=== PATIENT | female | born 1955 | race Caucasian/White ===

== ENCOUNTER 2017-11-19 03:10 | Inpatient (IN) | payer OTHER ==
[~2017-11-19] VITALS: Ht 167.6 cm; Wt 67.0 kg
[~2017-11-19 03:10] MED LIST: ALBU8I INH; BUSP30TA PO; CLEAPOW2 PO; FIORIC PO; HYDR10SO PO; MORP1CAP63 PO; PROT40TA PO; VENL100T PO
[2017-11-19 03:20] VITALS: BP 149/76; PULSE 83; RESP 16; TEMP 97.8; O2SAT 97
[2017-11-19] MEDS ORDERED: SODIUM CHLOR 0.9% 1000 ML INJ 1,000 ML IV SCH (03:24)
[2017-11-19] MEDS ORDERED: ONDANSETRON HCL 4 MG/2 ML VIAL IVP ONE (03:30)
[2017-11-19] MEDS ORDERED: SODIUM CHLORIDE 0.9% FLUSH 10 ML FLUSH IV FLUSH PRN ×2 (03:30→04:45)
--- NOTE | 2017-11-19 03:35 | PD ---
HPI Chief Complaint: Chemical [facility] Chief Problem Time Seen by Provider: 03:24 Travel History International Travel<30 days: No Contact w/Intl Traveler<30days: No Traveled to known affect area: No History of Present Illness HPI 62-year-old female presents to the emergency department from home by EMS transport for evaluation of legs feeling funny and abdominal pain. Patient states she has not felt well for several days with cold symptoms but more specifically on Monday evening she did not feel well and went to bed around 3 PM in the afternoon and awaken around 1:30 AM this morning. Patient states that she felt funny and her legs like they had been asleep or that they were moving and she could not control them so her daughter gave her 30 mg of her daughter's morphine. Patient herself has morphine pump. Patient states she has been ambulatory since waking this morning at 130 and has been able have a bowel movement and urinate normally. Patient denies any bladder or bowel dysfunction or saddle anesthesia or new numbness tingling or weakness in her legs. Patient has had previous fusion of the cervical spine and lumbar spine. Patient has a pain pump for chronic pain syndrome. Patient has reported subjective fever and chills feeling hot and cold but has not checked her temperature. Patient's had no dysuria frequency urgency hesitancy flank pain or hematuria. No diarrhea or constipation. No report of taking recent antibiotic. Patient rates her discomfort as "I do not know". PFSH Past Medical History Narrative Medical Chronic pain syndrome fibromyalgia cervical fusion and lumbar fusion hypertension COPD borderline dyslipidemia rapid heart rate kidney stones ureteral stent tubal ligation; tobacco use; nursing notes reviewed Arthritis: Yes Asthma: No Autoimmune Disease: Yes (CELIAC) Blood Disorders: No Heart Rhythm Problems: Yes (FAST HEART RATE) Cancer: No Cardiac Catheterization: Yes Cardiovascular Problems: Yes (HX TACHYCARDIA) High Cholesterol: Yes (BORDERLINE) Chemotherapy: No Chest Pain: Yes Congestive Heart Failure: No COPD: Yes Cerebrovascular Accident: No Diabetes: No Diminished Hearing: Yes (WEARS HEARING AIDS) Endocrine: No (SICKLE CELL TRAIT) Fibromyalgia: Yes Gastrointestinal Disorders: No (CELIAC DISEASE) GERD: Yes Glaucoma: No Genitourinary: No Headaches: No Hepatitis: No Hiatal Hernia: No Hypertension: No Immune Disorder: No Kidney Stones: Yes Musculoskeletal: No Neurologic: No Psychiatric: No (ANXIETY) Reproductive: No Respiratory: Yes (COPD) Migraines: No Radiation Therapy: No Renal Failure: No Seizures: No Sleep Apnea: No Thyroid Disease: No Ulcer: Yes PNEUMOCCOCAL Vaccine (Year): 2 Menopausal: Yes Tubal Ligation: Yes (1979) Past Surgical History Abdominal Surgery: No AICD: No Arteriovenous Shunt: No Body Medical Devices: DAYDAY. URETERAL STENTS Cardiac Surgery: No Coronary Artery Bypass Graft: No Ear Surgery: No Endocrine Surgery: No Eye Surgery: No Genitourinary Surgery: No Gynecologic Surgery: No Insulin Pump: No Joint Replacement: No Neurologic Surgery: No (CERVICAL FUSION) Oral Surgery: No Pacemaker: No Thoracic Surgery: No Other Surgery: Yes Social History Alcohol Use: No Tobacco Use: Yes (1 PPD) Substance Use: No Allergies-Medications (Allergen,Severity, Reaction): Coded Allergies: bupropion (Unverified Allergy, Severe, 05/30/17) diclofenac (Unverified Allergy, Severe, ULCER HX, 05/30/17) erythromycin base (Unverified Allergy, Severe, 05/30/17) etodolac (Unverified Allergy, Severe, ULCER HX, 05/30/17) flurbiprofen (Unverified Allergy, Severe, ULCER HX, 05/30/17) gabapentin (Unverified Allergy, Severe, 05/30/17) gluten (Unverified Allergy, Severe, BLOATING, 05/30/17) ibuprofen (Unverified Allergy, Severe, ULCER HX, 05/30/17) indomethacin (Unverified Allergy, Severe, ULCER HX, 05/30/17) ketoprofen (Unverified Allergy, Severe, ULCER HX, 05/30/17) ketorolac (Unverified Allergy, Severe, ULCER HX, 05/30/17) naproxen (Unverified Allergy, Severe, ULCER HX, 05/30/17) oxaprozin (Unverified Allergy, Severe, ULCER HX, 05/30/17) penicillin G (Unverified Allergy, Severe, 05/30/17) sulfamethoxazole (Unverified Allergy, Severe, 05/30/17) topiramate (Unverified Allergy, Severe, 05/30/17) trimethoprim (Unverified Allergy, Severe, 05/30/17) Reported Meds & Prescriptions Reported Meds & Active Scripts Active Narrative Medication Morphine pump Review of Systems Except as stated in HPI: all other systems reviewed are Neg General / Constitutional: Positive: Fever, Chills (Subjective) HENT: No: Sore Throat, Rhinitis, Congestion Cardiovascular: No: Chest Pain or Discomfort Respiratory: No: Shortness of Breath Gastrointestinal: Positive: Abdominal Pain, No: Nausea, Vomiting, Diarrhea, Hematemesis, Hematochezia Genitourinary: No: Dysuria, Flank Pain Musculoskeletal: No: Myalgias, Arthralgias, Limited ROM, Pain Skin: No Rash Neurologic: No: Weakness, Dizziness, Syncope, Focal Abnormalities Psychiatric: Positive: Anxiety Hematologic/Lymphatic: No: Easy Bruising Physical Exam Narrative GENERAL: Well-developed well-nourished female in no respiratory distress. Rocking back and forth on the bed and suctioning extending her hips and knees. SKIN: Warm and dry. HEAD: Atraumatic. Normocephalic. EYES: Pupils equal and round. No scleral icterus. No injection or drainage. ENT: No nasal bleeding or discharge. Mucous membranes pink and moist. NECK: Trachea midline. No JVD. CARDIOVASCULAR: Regular rate and rhythm. RESPIRATORY: No accessory muscle use. Clear to auscultation. Breath sounds equal bilaterally. GASTROINTESTINAL: Abdomen soft, diffusely mildly tender without palpable pulsatile mass no guarding or rebound right sided abdominal scar consistent with PainPump, nondistended. Hepatic and splenic margins not palpable. MUSCULOSKELETAL: Extremities without clubbing, cyanosis, or edema. No obvious deformities. NEUROLOGICAL: Awake and alert. GCS 15. No obvious cranial nerve deficits. Motor grossly within normal limits. Five out of 5 muscle strength in the arms and legs. Normal speech. PSYCHIATRIC: Appropriate mood and affect; insight and judgment normal. Data Data Last Documented VS Vital Signs Date Time Temp Pulse Resp B/P (MAP) Pulse Ox O2 Delivery O2 Flow Rate FiO2 11/19/17 03:20 97.8 83 16 149/76 (100) 97 Orders Orders Drug Screen, Random Urine (11/19/17 03:24) Alcohol (Ethanol) (11/19/17 03:24) Complete Blood Count With Diff (11/19/17 03:24) Comprehensive Metabolic Panel (11/19/17 03:24) Lipase (11/19/17 03:24) Urinalysis - C+S If Indicated (11/19/17 03:24) Ct Abd/Pel W Iv Contrast(Rout) (11/19/17 03:24) Iv Access Insert/Monitor (11/19/17 03:24) Ecg Monitoring (11/19/17 03:24) Oximetry (11/19/17 03:24) Ondansetron Inj (Zofran Inj) (11/19/17 03:30) Sodium Chlor 0.9% 1000 Ml Inj (Ns 1000 M (11/19/17 03:24) Electrocardiogram (11/19/17 03:24) Chest, Single Ap (11/19/17 03:24) Troponin I (11/19/17 03:24) Urine Culture (11/19/17 04:05) Blood Culture (11/19/17 04:26) Lactic Acid (11/19/17 04:26) Levofloxacin 500 Mg Premix Inj (Levaquin (11/19/17 04:30) Admit Order (Ed Use Only) (11/19/17 ) Vital Signs (Adult) Q4H (11/19/17 04:41) Diet Npo (11/19/17 Breakfast) Activity Oob With Assistance (11/19/17 04:41) Notify Dr: Other (11/19/17 04:41) Labs Laboratory Tests Test 11/19/17 03:40 11/19/17 04:05 White Blood Count 8.0 TH/MM3 Red Blood Count 4.93 MIL/MM3 Hemoglobin 14.1 GM/DL Hematocrit 40.8 % Mean Corpuscular Volume 82.7 FL Mean Corpuscular Hemoglobin 28.7 PG Mean Corpuscular Hemoglobin Concent 34.7 % Red Cell Distribution Width 14.8 % Platelet Count 247 TH/MM3 Mean Platelet Volume 8.1 FL Neutrophils (%) (Auto) 64.7 % Lymphocytes (%) (Auto) 29.5 % Monocytes (%) (Auto) 4.7 % Eosinophils (%) (Auto) 0.4 % Basophils (%) (Auto) 0.7 % Neutrophils # (Auto) 5.2 TH/MM3 Lymphocytes # (Auto) 2.4 TH/MM3 Monocytes # (Auto) 0.4 TH/MM3 Eosinophils # (Auto) 0.0 TH/MM3 Basophils # (Auto) 0.1 TH/MM3 CBC Comment DIFF FINAL Differential Comment Blood Urea Nitrogen 14 MG/DL Creatinine 0.99 MG/DL Random Glucose 107 MG/DL Total Protein 7.4 GM/DL Albumin 3.7 GM/DL Calcium Level 9.8 MG/DL Alkaline Phosphatase 135 U/L Aspartate Amino Transf (AST/SGOT) 26 U/L Alanine Aminotransferase (ALT/SGPT) 26 U/L Total Bilirubin 0.4 MG/DL Sodium Level 142 MEQ/L Potassium Level 4.0 MEQ/L Chloride Level 112 MEQ/L Carbon Dioxide Level 22.7 MEQ/L Anion Gap 7 MEQ/L Estimat Glomerular Filtration Rate 57 ML/MIN Troponin I LESS THAN 0.02 NG/ML Lipase 2544 U/L Ethyl Alcohol Level LESS THAN 3 MG/DL Urine Color LIGHT-YELLOW Urine Turbidity HAZY Urine pH 8.0 Urine Specific [place] 1.009 Urine Protein NEG mg/dL Urine Glucose (UA) NEG mg/dL Urine Ketones NEG mg/dL Urine Occult Blood NEG Urine Nitrite POS Urine Bilirubin NEG Urine Urobilinogen LESS THAN 2.0 MG/DL Urine Leukocyte Esterase LARGE Urine RBC 4 /hpf Urine WBC 39 /hpf Urine WBC Clumps OCC Urine Squamous Epithelial Cells 23 /hpf Urine Bacteria RARE /hpf Urine Mucus FEW /lpf Microscopic Urinalysis Comment CULTURE INDICATED Urine Opiates Screen POS Urine Barbiturates Screen NEG Urine Amphetamines Screen NEG Urine Benzodiazepines Screen NEG Urine Cocaine Screen NEG Urine Cannabinoids Screen NEG MDM Medical Decision Making Medical Screen Exam Complete: Yes Emergency Medical Condition: Yes Medical Record Reviewed: Yes Interpretation(s) CBC & BMP Diagram 11/19/17 03:40 Total Protein 7.4, Albumin 3.7, Calcium Level 9.8, Alkaline Phosphatase 135 H, Aspartate Amino Transf (AST/SGOT) 26, Alanine Aminotransferase (ALT/SGPT) 26, Total Bilirubin 0.4 Vital Signs Date Time Temp Pulse Resp B/P (MAP) Pulse Ox O2 Delivery O2 Flow Rate FiO2 11/19/17 03:20 97.8 83 16 149/76 (100) 97 Differential Diagnosis Adverse medication reaction, pain pump failure, abdominal pain, colitis, diverticulitis, appendicitis, renal colic, abdominal aortic aneurysm, aortic dissection Narrative Course Patient placed on spa coordinator with continuous pulse oximetry EKG performed IV access obtained specimens collected and sent for resulting patient administered Zofran 4 mg IV lipase elevated UA: Positive nitrites positive leukocyte esterase positive WBCs positive bacteria culture indicated Patient given a one-time dose of Levaquin IV fluids kept n.p.o. and sent for CT abdomen and pelvis Patient's case discussed with on-call [facility] for OBS admission Physician Communication Physician Communication discussed with Dr Barahona -- OBS Diagnosis Primary Impression: Pancreatitis Qualified Codes: K85.90 - Acute pancreatitis without necrosis or infection, unspecified Admitting Information Admitting Physician Requests: Haley Flynn MD Nov 19, 2017 03:35
--- NOTE | 2017-11-19 03:56 | RADRPT ---
EXAM DATE/TIME: 11/19/2017 03:29 [facility] COMPARISON: CHEST SINGLE AP, February 13, 2013, 18:36. INDICATIONS : Free air. MEDICAL HISTORY : Chronic obstructive pulmonary disease. Fibromyalgia. SURGICAL HISTORY : None. ENCOUNTER: Initial ACUITY: 1 day PAIN SCORE: 0/10 LOCATION: Bilateral chest FINDINGS: A single view of the chest demonstrates the lungs to be symmetrically aerated without evidence of mas s, infiltrate or effusion. The cardiomediastinal contours are unremarkable. Osseous structures are intact. CONCLUSION: No acute disease. There is no evidence for free air beneath the diaphragm. Ariel Nath MD on November 19, 2017 at 3:55 Board Certified Radiologist. This report was verified electronically.
[2017-11-19 03:58] LABS: AUTOMATED NEUTROPHIL # 5.2 TH/MM3 (1.8-7.7); BASOPHIL # 0.1 TH/MM3 (0-0.2); BASOPHIL % 0.7 % (0.0-2.0); EOSINOPHIL % 0.4 % (0.0-4.0); HEMATOCRIT 40.8 % (35.0-46.0); HEMOGLOBIN 14.1 GM/DL (11.6-15.3); LYMPH % 29.5 % (9.0-44.0); LYMPHOCYTE # 2.4 TH/MM3 (1.0-4.8); MEAN CELL VOLUME 82.7 FL (80.0-100.0); MEAN CORPUSCULAR HEMOGLOBIN 28.7 PG (27.0-34.0); MEAN CORPUSCULAR HGB CONC 34.7 % (32.0-36.0); MEAN PLATELET VOLUME 8.1 FL (7.0-11.0); MONO % 4.7 % (0.0-8.0); MONOCYTE # 0.4 TH/MM3 (0-0.9); NEUT % 64.7 % (16.0-70.0); PLATELET COUNT 247 TH/MM3 (150-450); RED BLOOD COUNT 4.93 MIL/MM3 (4.00-5.30); RED CELL DISTRIBUTION WIDTH 14.8 % (11.6-17.2)
[2017-11-19 04:18] LABS: ALKALINE PHOSPHATASE 135 U/L (45-117); TOTAL BILIRUBIN ADULT 0.4 MG/DL (0.2-1.0); TOTAL PROTEIN 7.4 GM/DL (6.4-8.2); TROPONIN I LESS THAN 0.02 NG/ML (0.02-0.05)
[2017-11-19 04:24] LABS: BACTERIA, URINE RARE /hpf; BILIRUBIN, URINE NEG (NEG); BLOOD, URINE NEG (NEG); GLUCOSE,URINE NEG (NEG); KETONE, URINE NEG (NEG); MUCUS URINE FEW /lpf (OCC); NITRITE,URINE POS (NEG); SQUAMOUS EPITHELIAL CELL URINE 23 /hpf (0-5); URINE COLOR LIGHT-YELLOW (YELLW/STRAW); URINE LEUKOCYTE ESTERASE LARGE (NEG); WHITE BLOOD CELL CLUMPS OCC
[2017-11-19 04:26] LABS: ALBUMIN 3.7 GM/DL (3.4-5.0); ALT (GPT) 26 U/L (10-53); AST (GOT) 26 U/L (15-37); BICARBONATE 22.7 MEQ/L (21.0-32.0); BLOOD UREA NITROGEN 14 MG/DL (7-18); CALCIUM 9.8 MG/DL (8.5-10.1); CHLORIDE 112 MEQ/L (98-107); CREATININE 0.99 MG/DL (0.50-1.00); GLOMERULAR FILTRATION RATE 57 ML/MIN (>89); GLUCOSE,RANDOM 107 MG/DL (74-106); SODIUM (NA) 142 MEQ/L (136-145)
[2017-11-19] MEDS ORDERED: LEVOFLOXACIN 500 MG PREMIX INJ 100 ML IV ONE (04:30)
[2017-11-19] MEDS ORDERED: NALOXONE HCL 0.4 MG/ML AMP IV PUSH PRN (04:45)
[2017-11-19] MEDS ORDERED: ONDANSETRON HCL 4 MG/2 ML VIAL IVP PRN (04:45)
[2017-11-19] MEDS ORDERED: IOHEXOL 350 MG/ML 10 ML VIAL (for RAD DIAG) IVCONTRAST ONE (04:57)
[2017-11-19] MEDS ORDERED: HEPARIN SODIUM - SQ 10,000 UNITS/ML VIAL SQ SCH (05:00)
--- NOTE | 2017-11-19 05:13 | RADRPT ---
EXAM DATE/TIME: 11/19/2017 04:57 [facility] COMPARISON: No previous studies available for comparison. INDICATIONS : Abdominal pain with elevated lipase. IV CONTRAST: 75 cc Omnipaque 350 (iohexol) IV ORAL CONTRAST: No oral contrast ingested. RADIATION DOSE: 9.71 CTDIvol (mGy) MEDICAL HISTORY : Cardiovascular disease. Chronic obstructive pulmonary disease. Gastroesophageal reflux disease.Gallst ones SURGICAL HISTORY : Tubal ligation. ENCOUNTER: Initial ACUITY: 1 day PAIN SCALE: 6/10 LOCATION: abdomen TECHNIQUE: Volumetric scanning of the abdomen and pelvis was performed. Using automated exposure control and ad justment of the mA and/or kV according to patient size, radiation dose was kept as low as reasonably achievable to obtain optimal diagnostic quality images. DICOM format image data is available electro nically for review and comparison. FINDINGS: No pleural effusions are seen. The gallbladder is filled with stones. There is slight prominence of t he intrahepatic biliary tree, and the common bile duct measures 11 mm in maximal dimension. Urinary b ladder is unremarkable. Uterus demonstrates a enhancing mass near the fundus measuring 2.2 cm filter present a fibroid. Ovaries are unremarkable. A moderate amount of stool is noted within the colon, an d occasional diverticuli without evidence for diverticulitis. Spleen, pancreas, adrenals unremarkable . There are bilateral renal calculi identified the largest at the lower pole of the left kidney measu ring 1.4 cm, and on the right the largest measures 7.1 mm at the mid pole. No evidence of hydronephro sis or hydroureter. Lung bases are clear. Osseous structures are intact. CONCLUSION: 1. Cholelithiasis and mild prominence of the biliary tree. There is a questionable filling defect in the distal common bile duct seen best on coronal imaging and suspect for choledocholith or mass. Cons ider MRCP and MRI of the abdomen with and without contrast for further evaluation of this finding. Ariel Nath MD on November 19, 2017 at 5:07 Board Certified Radiologist. This report was verified electronically.
[2017-11-19] MEDS: SODIUM CHLOR 0.9% 1000 ML INJ 1,000 ML IV SCH ×3 (05:21→13:48)
--- NOTE | 2017-11-19 05:55 | HHI.HP ---
HPI Service [facility] Primary Care Physician [facility] Admission Diagnosis pancreatitis/elevated lipase; chronic pain syndrome Diagnoses: Travel History International Travel<30 Days: No Contact w/Intl Traveler <30 Da: No Traveled to Known Affected Are: No History of Present Illness 62-year-old female with a past medical history significant for chronic pain with morphine pump, fibromyalgia, celiac disease and anxiety presents to the emergency department for evaluation of leg spasms. The patient reports that she woke up approximately 1 AM and "could not control her legs." Her daughter gave her a 30 mg tablet of morphine to help with her symptoms yet they persisted. The patient states that she cannot walk. She endorses nausea/ vomiting. Denies abdominal pain. Denies chest pain/shortness of breath. She reports that her pain pump was supposed to be filled on 11/09 however due [facility] with [facility] it was never [facility]. Of note, while the patient was alone in her room she was still however upon my entering the room and during our interview she had multiple leg spasms that appeared to be voluntary. Review of Systems Except as stated in HPI: all other systems reviewed are Neg Past Family Social History Past Medical History Celiac disease Fibromyalgia Chronic pain Anxiety Past Surgical History Fusion C4-C5 Morphine pump placement Reported Medications Reported Meds & Active Scripts Active Allergies: Coded Allergies: bupropion (Unverified Allergy, Severe, 05/30/17) diclofenac (Unverified Allergy, Severe, ULCER HX, 05/30/17) erythromycin base (Unverified Allergy, Severe, 05/30/17) etodolac (Unverified Allergy, Severe, ULCER HX, 05/30/17) flurbiprofen (Unverified Allergy, Severe, ULCER HX, 05/30/17) gabapentin (Unverified Allergy, Severe, 05/30/17) gluten (Unverified Allergy, Severe, BLOATING, 05/30/17) ibuprofen (Unverified Allergy, Severe, ULCER HX, 05/30/17) indomethacin (Unverified Allergy, Severe, ULCER HX, 05/30/17) ketoprofen (Unverified Allergy, Severe, ULCER HX, 05/30/17) ketorolac (Unverified Allergy, Severe, ULCER HX, 05/30/17) naproxen (Unverified Allergy, Severe, ULCER HX, 05/30/17) oxaprozin (Unverified Allergy, Severe, ULCER HX, 05/30/17) penicillin G (Unverified Allergy, Severe, 05/30/17) sulfamethoxazole (Unverified Allergy, Severe, 05/30/17) topiramate (Unverified Allergy, Severe, 05/30/17) trimethoprim (Unverified Allergy, Severe, 05/30/17) Family History Both parents with coronary artery disease. Social History Smokes approximately one pack per day. Remote history of alcohol. Denies illicit drugs. Physical Exam Vital Signs Vital Signs Date Time Temp Pulse Resp B/P (MAP) Pulse Ox O2 Delivery O2 Flow Rate FiO2 11/19/17 03:20 97.8 83 16 149/76 (100) 97 Physical Exam GENERAL: female, vacillating between sitting and lying, with multiple leg movements throughout the entire interview SKIN: No rashes, ecchymoses or lesions. Cool and dry. HEAD: Atraumatic. Normocephalic. No temporal or scalp tenderness. EYES: Pupils equal round and reactive. Extraocular motions intact. No scleral icterus. No injection or drainage. ENT: Nose without bleeding, purulent drainage or septal hematoma. Throat without erythema, tonsillar hypertrophy or exudate. Uvula midline. Airway patent. NECK: Trachea midline. No JVD or lymphadenopathy. Supple, nontender, no meningeal signs. CARDIOVASCULAR: Regular rate and rhythm without murmurs, gallops, or rubs. RESPIRATORY: Clear to auscultation. Breath sounds equal bilaterally. No wheezes , rales, or rhonchi. GASTROINTESTINAL: Abdomen soft, mildly tender to palpation diffusely, nondistended. No hepato-splenomegaly, or palpable masses. No guarding. MUSCULOSKELETAL: Extremities without clubbing, cyanosis, or edema. No joint tenderness, effusion, or edema noted. No calf tenderness. NEUROLOGICAL: Awake and alert. Cranial nerves II through XII intact. Motor and sensory grossly within normal limits. Normal speech. Laboratory Laboratory Tests Test 11/19/17 03:40 11/19/17 04:05 11/19/17 04:55 White Blood Count 8.0 Red Blood Count 4.93 Hemoglobin 14.1 Hematocrit 40.8 Mean Corpuscular Volume 82.7 Mean Corpuscular Hemoglobin 28.7 Mean Corpuscular Hemoglobin Concent 34.7 Red Cell Distribution Width 14.8 Platelet Count 247 Mean Platelet Volume 8.1 Neutrophils (%) (Auto) 64.7 Lymphocytes (%) (Auto) 29.5 Monocytes (%) (Auto) 4.7 Eosinophils (%) (Auto) 0.4 Basophils (%) (Auto) 0.7 Neutrophils # (Auto) 5.2 Lymphocytes # (Auto) 2.4 Monocytes # (Auto) 0.4 Eosinophils # (Auto) 0.0 Basophils # (Auto) 0.1 CBC Comment DIFF FINAL Differential Comment Blood Urea Nitrogen 14 Creatinine 0.99 Random Glucose 107 Total Protein 7.4 Albumin 3.7 Calcium Level 9.8 Alkaline Phosphatase 135 Aspartate Amino Transf (AST/SGOT) 26 Alanine Aminotransferase (ALT/SGPT) 26 Total Bilirubin 0.4 Sodium Level 142 Potassium Level 4.0 Chloride Level 112 Carbon Dioxide Level 22.7 Anion Gap 7 Estimat Glomerular Filtration Rate 57 Troponin I LESS THAN 0.02 Lipase 2544 Ethyl Alcohol Level LESS THAN 3 Urine Color LIGHT-YELLOW Urine Turbidity HAZY Urine pH 8.0 Urine Specific [place] 1.009 Urine Protein NEG Urine Glucose (UA) NEG Urine Ketones NEG Urine Occult Blood NEG Urine Nitrite POS Urine Bilirubin NEG Urine Urobilinogen LESS THAN 2.0 Urine Leukocyte Esterase LARGE Urine RBC 4 Urine WBC 39 Urine WBC Clumps OCC Urine Squamous Epithelial Cells 23 Urine Bacteria RARE Urine Mucus FEW Microscopic Urinalysis Comment CULTURE INDICATED Urine Opiates Screen POS Urine Barbiturates Screen NEG Urine Amphetamines Screen NEG Urine Benzodiazepines Screen NEG Urine Cocaine Screen NEG Urine Cannabinoids Screen NEG Lactic Acid Level 0.6 Date/Time Source Procedure Growth Status 11/19/17 04:55 Blood Peripheral Aerobic Blood Culture Pending Received 11/19/17 04:55 Blood Peripheral Anaerobic Blood Culture Pending Received 11/19/17 04:05 Urine Clean Catch Urine Culture Pending Received Result Diagram: 11/19/17 0340 11/19/17 0340 Caprini VTE Risk Assessment Caprini VTE Risk Assessment: Mod/High Risk (score >= 2) Caprini Risk Assessment Model Point Value = 1 Point Value = 2 Point Value = 3 Point Value = 5 Age 41-60 Minor surgery BMI > 25 kg/m2 Swollen legs Varicose veins or History of unexplained or recurrent spontaneous Oral contraceptives or hormone replacement Sepsis (< 1 month) Serious lung disease, including pneumonia (< 1 month) Abnormal pulmonary function Acute myocardial infarction Congestive heart failure (< 1 month) History of inflammatory bowel disease Medical patient at bed rest Age 61-74 Arthroscopic surgery Major open surgery (> 45 min) Laparoscopic surgery (> 45 min) Malignancy Confined to bed (> 72 hours) Immobilizing plaster cast Central venous access Age >= 75 History of VTE Family history of VTE Factor V Leiden Prothrombin [id number] Lupus anticoagulant Anticardiolipin antibodies Elevated serum homocysteine Heparin-induced thrombocytopenia Other congenital or acquired thrombophilia Stroke (< 1 month) Elective arthroplasty Hip, pelvis, or leg fracture Acute spinal cord injury (< 1 month) Prophylaxis Regimen Total Risk Factor Score Risk Level Prophylaxis Regimen 0-1 Low Early ambulation 2 Moderate Order ONE of the following: *Sequential Compression Device (SCD) *Heparin 5000 units SQ BID 3-4 Higher Order ONE of the following medications: *Heparin 5000 units SQ TID *Enoxaparin/Lovenox 40 mg SQ daily (WT < 150 kg, CrCl > 30 mL/min) *Enoxaparin/Lovenox 30 mg SQ daily (WT < 150 kg, CrCl > 10-29 mL/min) *Enoxaparin/Lovenox 30 mg SQ BID (WT < 150 kg, CrCl > 30 mL/min) AND/OR *Sequential Compression Device (SCD) 5 or more Highest Order ONE of the following medications: *Heparin 5000 units SQ TID (Preferred with Epidurals) *Enoxaparin/Lovenox 40 mg SQ daily (WT < 150 kg, CrCl > 30 mL/min) *Enoxaparin/Lovenox 30 mg SQ daily (WT < 150 kg, CrCl > 10-29 mL/min) *Enoxaparin/Lovenox 30 mg SQ BID (WT < 150 kg, CrCl > 30 mL/min) AND *Sequential Compression Device (SCD) Assessment and Plan Assessment and Plan Assessment/plan: 1. Pancreatitis CT of the abdomen/pelvis significant for cholelithiasis and mild prominence of the biliary tree with questionable filling defect in the distal common bile duct , suspicious for stone versus mass Lipase 2544 Gastroenterology consulted, appreciate recommendations given scan Nothing by mouth IV fluid hydration Caution with pain medications as patient has pain pump and took additional morphine this morning 2. Urinary tract infection UA significant for rare bacteria, 39 WBCs, large leukocyte esterase and positive nitrates Rocephin Urine culture pending 3. Chronic pain/anxiety/fibromyalgia Continue home medications once reconciled FEN NPO NS at 150 cc/hr Electrolytes: monitor and replete prn Physician Certification 2 Midnight Certification Type: Admission for Inpatient Services Order for Inpatient Services The services are ordered in accordance with Medicare regulations or non- Medicare payer requirements, as applicable. In the case of services not specified as inpatient-only, they are appropriately provided as inpatient services in accordance with the 2-midnight benchmark. Estimated LOS (days): 2 2 days is the estimated time the patient will need to remain in the hospital, assuming treatment plan goals are met and no additional complications. Post-Hospital Plan: Not yet determined Yvette Barahona MD Nov 19, 2017 05:55
[2017-11-19] MEDS ORDERED: LORazepam 2 MG/ML VIAL IV PUSH ONE (06:00)
[2017-11-19] MEDS: SODIUM CHLORIDE 0.9% FLUSH 10 ML FLUSH IV FLUSH SCH ×2 (07:08→21:00)
[2017-11-19] MEDS: cefTRIAXone INJ 1,000 MG in SODIUM CHLORIDE 0.9% INJ 100 ML IV SCH (07:49)
[2017-11-19 08:00] VITALS: BP 142/79; PULSE 88; RESP 17; TEMP 98.4; O2SAT 98
--- NOTE | 2017-11-19 09:00 | PD.CONS ---
HPI History of Present Illness This is a 62 year old with a past medical history significant for chronic pain with morphine pump, fibromyalgia, celiac disease and anxiety presents to the emergency department for evaluation of involuntary leg spasms that wasn't relived with morphine. Reports nausea and one episode of vomiting the day before yesterday. States she has been following gluten free diet but had a cookie a couple of days ago, but she does this every now and then and never develop any symptoms. CT of the abdomen/pelvis done and that was significant for cholelithiasis and mild prominence of the biliary tree with questionable filling defect in the distal common bile duct, suspicious for stone versus mass. Labs with normal LfTs, high Lipase 2544. Patient reports subjective fever and chills. CBC unremarkable. Patient denies abd pain, change in bowels, change in urine, hematemesis or hematochezia. Denies previous hx of pancreatitis or liver disease, denies alcohol or illicit drug use. (Teagan Willson) PFSH Past Medical History Celiac disease Fibromyalgia Chronic pain Anxiety Past Surgical History Fusion C4-C5 Morphine pump placement (Teagan Willson) Coded Allergies: bupropion (Unverified Allergy, Severe, 05/30/17) diclofenac (Unverified Allergy, Severe, ULCER HX, 05/30/17) erythromycin base (Unverified Allergy, Severe, 05/30/17) etodolac (Unverified Allergy, Severe, ULCER HX, 05/30/17) flurbiprofen (Unverified Allergy, Severe, ULCER HX, 05/30/17) gabapentin (Unverified Allergy, Severe, 05/30/17) gluten (Unverified Allergy, Severe, BLOATING, 05/30/17) ibuprofen (Unverified Allergy, Severe, ULCER HX, 05/30/17) indomethacin (Unverified Allergy, Severe, ULCER HX, 05/30/17) ketoprofen (Unverified Allergy, Severe, ULCER HX, 05/30/17) ketorolac (Unverified Allergy, Severe, ULCER HX, 05/30/17) naproxen (Unverified Allergy, Severe, ULCER HX, 05/30/17) oxaprozin (Unverified Allergy, Severe, ULCER HX, 05/30/17) penicillin G (Unverified Allergy, Severe, 05/30/17) sulfamethoxazole (Unverified Allergy, Severe, 05/30/17) topiramate (Unverified Allergy, Severe, 05/30/17) trimethoprim (Unverified Allergy, Severe, 05/30/17) Family History Both parents with coronary artery disease. Negative for Colon cancer or pancreatic cancer Social History Smokes approximately one pack per day. Remote history of alcohol. Denies illicit drugs. (Teagan Willson) Review of Systems Constitutional: COMPLAINS OF: Fever, Chills Endocrine: DENIES: Polyuria Eyes: DENIES: Photosensitivity Ears, nose, mouth, throat: DENIES: Hoarseness Respiratory: DENIES: Shortness of breath Cardiovascular: DENIES: Lower Extremity Edema Gastrointestinal: COMPLAINS OF: Nausea, Vomiting, DENIES: Abdominal pain, Black stools, Bloody stools, Constipation, Diarrhea, Difficulty Swallowing, Anorexia, Odynophagia, Swelling of Abdomen, Heartburn, Hematemesis Genitourinary: DENIES: Hematuria Musculoskeletal: COMPLAINS OF: Back pain Integumentary: DENIES: Jaundice Hematologic/lymphatic: DENIES: Bruising Immunologic/allergic: DENIES: Eczema Neurologic: COMPLAINS OF: Abnormal gait Psychiatric: COMPLAINS OF: Anxiety (Teagan Willson) GI Exam Vitals I&O Vital Signs Date Time Temp Pulse Resp B/P (MAP) Pulse Ox O2 Delivery O2 Flow Rate FiO2 11/19/17 03:20 97.8 83 16 149/76 (100) 97 I/O 11/18/17 11/18/17 11/18/17 11/19/17 11/19/17 11/19/17 07:00 15:00 23:00 07:00 15:00 23:00 Intake Total 350 ml 100 ml Balance 350 ml 100 ml Intake IV Total 350 ml 100 ml Imaging Last Impressions Chest X-Ray 11/19/17323 Signed Impressions: Service Date/Time: Sunday, November 19, 2017 03:29 - CONCLUSION: No acute disease. There is no evidence for free air beneath the diaphragm. Ariel Nath MD Abdomen/Pelvis CT 11/19/17323 Signed Impressions: Service Date/Time: Sunday, November 19, 2017 04:57 - CONCLUSION: 1. Cholelithiasis and mild prominence of the biliary tree. There is a questionable filling defect in the distal common bile duct seen best on coronal imaging and suspect for choledocholith or mass. Consider MRCP and MRI of the abdomen with and without contrast for further evaluation of this finding. Ariel Nath MD Laboratory Test 11/19/17 03:40 11/19/17 04:05 11/19/17 04:55 White Blood Count 8.0 TH/MM3 Red Blood Count 4.93 MIL/MM3 Hemoglobin 14.1 GM/DL Hematocrit 40.8 % Mean Corpuscular Volume 82.7 FL Mean Corpuscular Hemoglobin 28.7 PG Mean Corpuscular Hemoglobin Concent 34.7 % Red Cell Distribution Width 14.8 % Platelet Count 247 TH/MM3 Mean Platelet Volume 8.1 FL Neutrophils (%) (Auto) 64.7 % Lymphocytes (%) (Auto) 29.5 % Monocytes (%) (Auto) 4.7 % Eosinophils (%) (Auto) 0.4 % Basophils (%) (Auto) 0.7 % Neutrophils # (Auto) 5.2 TH/MM3 Lymphocytes # (Auto) 2.4 TH/MM3 Monocytes # (Auto) 0.4 TH/MM3 Eosinophils # (Auto) 0.0 TH/MM3 Basophils # (Auto) 0.1 TH/MM3 CBC Comment DIFF FINAL Differential Comment Blood Urea Nitrogen 14 MG/DL Creatinine 0.99 MG/DL Random Glucose 107 MG/DL Total Protein 7.4 GM/DL Albumin 3.7 GM/DL Calcium Level 9.8 MG/DL Alkaline Phosphatase 135 U/L Aspartate Amino Transf (AST/SGOT) 26 U/L Alanine Aminotransferase (ALT/SGPT) 26 U/L Total Bilirubin 0.4 MG/DL Sodium Level 142 MEQ/L Potassium Level 4.0 MEQ/L Chloride Level 112 MEQ/L Carbon Dioxide Level 22.7 MEQ/L Anion Gap 7 MEQ/L Estimat Glomerular Filtration Rate 57 ML/MIN Troponin I LESS THAN 0.02 NG/ML Lipase 2544 U/L Ethyl Alcohol Level LESS THAN 3 MG/DL Urine Color LIGHT-YELLOW Urine Turbidity HAZY Urine pH 8.0 Urine Specific [place] 1.009 Urine Protein NEG mg/dL Urine Glucose (UA) NEG mg/dL Urine Ketones NEG mg/dL Urine Occult Blood NEG Urine Nitrite POS Urine Bilirubin NEG Urine Urobilinogen LESS THAN 2.0 MG/DL Urine Leukocyte Esterase LARGE Urine RBC 4 /hpf Urine WBC 39 /hpf Urine WBC Clumps OCC Urine Squamous Epithelial Cells 23 /hpf Urine Bacteria RARE /hpf Urine Mucus FEW /lpf Microscopic Urinalysis Comment CULTURE INDICATED Urine Opiates Screen POS Urine Barbiturates Screen NEG Urine Amphetamines Screen NEG Urine Benzodiazepines Screen NEG Urine Cocaine Screen NEG Urine Cannabinoids Screen NEG Lactic Acid Level 0.6 mmol/L Date/Time Source Procedure Growth Status 11/19/17 04:55 Blood Peripheral Aerobic Blood Culture Pending Received 11/19/17 04:55 Blood Peripheral Anaerobic Blood Culture Pending Received 11/19/17 04:05 Urine Clean Catch Urine Culture Pending Received Physical Examination HEENT: normocephalic; atraumatic; no jaundice. CHEST: Chest is clear to auscultation and percussion. CARDIAC: Regular rate and rhythm with no murmur gallop or rubs. ABDOMEN: Soft, nondistended, nontender; no hepatosplenomegaly; bowel sounds are present in all four quadrants. EXTREMITIES: No clubbing, cyanosis, or edema. SKIN: Normal; no rash; no jaundice. SHAKER OUT: No focal deficits; alert and oriented times three. (Teagan Willson) Assessment and Plan Plan - Acute pancreatitis- likely biliary etiology. CT of the abdomen/pelvis done and that was significant for cholelithiasis and mild prominence of the biliary tree with questionable filling defect in the distal common bile duct, suspicious for stone versus mass. Labs with normal LfTs, high Lipase 2544. Patient reports subjective fever and chills. CBC unremarkable. Patient denies abd pain, change in bowels, change in urine, hematemesis or hematochezia. Denies previous hx of pancreatitis or liver disease, denies alcohol or illicit drug use. Reports nausea and one episode of vomiting the day before yesterday. - Hx of celiac dz- last EGD 5 yrs ago per pt, has been following gluten free diet, she consumes gluten every now and then but minimal - UTI- urine cx pending - involuntary leg spasms that wasn't relived with morphine. per attending - past medical history significant for chronic pain with morphine pump, fibromyalgia, per attending Plan: - NPO - Aggressive hydration - Pain and antiemetic meds - Pt not able to have MRI due to morphine pump - ERCP in the am - Obtain consents - CBC, CMP, lipase in the am - CEA, CA19-9, AFP - Supportive care - Patient seen and examined by Dr. Espana and myself and this note is written on his behalf. (Teagan Willson) Physician Comments Seen and examined with LUDMILA, no abdominal pain. CT findings reviewed with pt. ERCP planned for tomorrow. Clear liquid diet, npo after midnight. Repeat labs in am. Thank you (Danielle Espana MD) Teagan Willson Nov 19, 2017 09:00 Danielle Espana MD Nov 19, 2017 12:34
[2017-11-19 12:00] VITALS: BP 153/88; PULSE 94; RESP 17; TEMP 98.4; O2SAT 97
--- NOTE | 2017-11-19 13:01 | EKG ---
Date Performed: 11/19/2017 Time Performed: 03:29:19 PTAGE: 62 years EKG: Sinus rhythm NORMAL ECG Since PREVIOUS TRACING , no significant change noted PREVIOUS TRACIN04/02/2015 10.18 DOCTOR: Stevie Atkins Interpretating Date/Time 11/19/2017 13:00:15
[2017-11-19 13:20] LABS: CARCINOEMBRYONIC ANTIGEN 2.4 NG/ML (0.2-5.0)
[2017-11-19 13:56] LABS: CA 19-9 9.2 U/ML (0.0-35.0)
[2017-11-19 16:14] VITALS: BP 166/80; PULSE 76; RESP 18; TEMP 98.7; O2SAT 97
[2017-11-19] MEDS ORDERED: LORazepam 2 MG TAB PO ONE (17:30)
[2017-11-19 20:43] VITALS: BP 187/86; PULSE 72; RESP 20; TEMP 97.2; O2SAT 97
[2017-11-20] MEDS ORDERED: LORazepam 2 MG TAB PO ONE (01:15)
[2017-11-20 01:30] VITALS: BP 171/85; PULSE 78; RESP 20; TEMP 98.3; O2SAT 98
[2017-11-20] MEDS ORDERED: SODIUM CHLORID 0.9% 500 ML IV PRN (03:45)
[2017-11-20] MEDS ORDERED: CHLORHEXIDINE GLUCONATE 2 % 1 PACK (2 CLOTHS) TOPICAL PRN (03:45)
[2017-11-20] MEDS ORDERED: LACTATED RINGER'S 1000 ML IV PRN (03:45)
[2017-11-20] MEDS ORDERED: METOPROLOL TARTRATE 25 MG TAB PO PRN (03:45)
[2017-11-20] MEDS ORDERED: POVIDONE IODINE 5% (ANTISEPSIS KIT) 4 APPLICATIONS EACH NARE PRN (03:45)
[2017-11-20] MEDS ORDERED: VENL50TA PO (05:16)
[2017-11-20] MEDS ORDERED: POLY17S PO (05:16)
[2017-11-20] MEDS ORDERED: MORP-44 PO (05:16)
[2017-11-20] MEDS ORDERED: BUSP30TA PO (05:16)
[2017-11-20] MEDS ORDERED: HYDR-3580 PO (05:16)
[2017-11-20] MEDS ORDERED: ALBUAER3 INH (05:16)
[2017-11-20] MEDS ORDERED: BUTA1CAP PO (05:16)
[2017-11-20] MEDS ORDERED: PANT40TA3 PO (05:16)
[2017-11-20] MEDS: ACETAMIN 325 MG/BUTALBITAL 50 MG/CAFFEINE 40 MG TAB PO PRN ×2 (05:42→20:33)
[2017-11-20 05:51] VITALS: BP 167/84; PULSE 87; RESP 20; TEMP 98.1; O2SAT 97
[2017-11-20 06:47] LABS: AUTOMATED NEUTROPHIL # 5.1 TH/MM3 (1.8-7.7); BASOPHIL % 0.5 % (0.0-2.0); EOSINOPHIL % 0.2 % (0.0-4.0); HEMATOCRIT 40.7 % (35.0-46.0); LYMPHOCYTE # 1.9 TH/MM3 (1.0-4.8); MEAN CELL VOLUME 83.3 FL (80.0-100.0); MEAN CORPUSCULAR HEMOGLOBIN 28.6 PG (27.0-34.0); MEAN CORPUSCULAR HGB CONC 34.4 % (32.0-36.0); MEAN PLATELET VOLUME 8.2 FL (7.0-11.0); MONO % 6.8 % (0.0-8.0); MONOCYTE # 0.5 TH/MM3 (0-0.9); NEUT % 67.5 % (16.0-70.0); PLATELET COUNT 230 TH/MM3 (150-450); RED BLOOD COUNT 4.88 MIL/MM3 (4.00-5.30); RED CELL DISTRIBUTION WIDTH 14.8 % (11.6-17.2); WHITE BLOOD COUNT 7.5 TH/MM3 (4.0-11.0)
[2017-11-20 06:55] LABS: ALBUMIN 3.8 GM/DL (3.4-5.0); ALT (GPT) 22 U/L (10-53); AST (GOT) 22 U/L (15-37); BICARBONATE 21.1 MEQ/L (21.0-32.0); BLOOD UREA NITROGEN 13 MG/DL (7-18); CALCIUM 10.1 MG/DL (8.5-10.1); CHLORIDE 111 MEQ/L (98-107); CREATININE 0.87 MG/DL (0.50-1.00); GLOMERULAR FILTRATION RATE 66 ML/MIN (>89); GLUCOSE,RANDOM 102 MG/DL (74-106); SODIUM (NA) 142 MEQ/L (136-145)
[2017-11-20 06:57] LABS: ALKALINE PHOSPHATASE 139 U/L (45-117); TOTAL BILIRUBIN ADULT 0.4 MG/DL (0.2-1.0); TOTAL PROTEIN 7.5 GM/DL (6.4-8.2)
[2017-11-20] MEDS: SODIUM CHLOR 0.9% 1000 ML INJ 1,000 ML IV SCH ×3 (07:11→20:42)
[2017-11-20] MEDS: busPIRone HCL 10 MG TAB PO SCH ×2 (07:32→20:33)
[2017-11-20] MEDS: SODIUM CHLORIDE 0.9% FLUSH 10 ML FLUSH IV FLUSH SCH ×2 (07:34→20:35)
[2017-11-20] MEDS: cefTRIAXone INJ 1,000 MG in SODIUM CHLORIDE 0.9% INJ 100 ML IV SCH (07:34)
[2017-11-20 08:45] VITALS: BP 150/72; PULSE 63; RESP 16; TEMP 98.7; O2SAT 96
[2017-11-20] MEDS ORDERED: ENALAPRILAT 1.25 MG/ML VIAL IV PUSH PRN (10:00)
[2017-11-20] MEDS: LISINOPRIL 5 MG TAB PO SCH (10:28)
[2017-11-20 11:41] LABS: % SATURATION IRON PROFILE 29.8 % (20-50); IRON (FE) 88 MCG/DL (50-170); TOTAL IRON BINDING CAPACITY 295 MCG/DL (250-450)
[2017-11-20 11:44] LABS: FERRITIN 83 NG/ML (8-252)
[2017-11-20 12:00] VITALS: BP 161/75; PULSE 71; RESP 17; TEMP 99.4; O2SAT 99
[2017-11-20] MEDS ORDERED: PROPOFOL 200 MG/20 ML AMP IV ONE (12:00)
[2017-11-20] MEDS ORDERED: LACTATED RINGER'S 1000 ML INJ 1,000 ML IV ONE (12:00)
[2017-11-20] MEDS ORDERED: LIDOCAINE HCL 1% PF 5 ML SYRINGE OTHER ONE (12:00)
[2017-11-20] MEDS ORDERED: SUCCINYLCHOLINE CHLORIDE 200 MG/10 ML VIAL IV ONE (12:00)
[2017-11-20] MEDS ORDERED: DEXAMETHASONE SOD PHOS 4 MG/ML VIAL IV ONE (12:00)
[2017-11-20] MEDS ORDERED: ONDANSETRON HCL 4 MG/2 ML VIAL IV ONE (12:00)
--- NOTE | 2017-11-20 15:48 | HHI.PR ---
Subjective Remarks Resting in bed looks jaundiced Complain of discomfort in her legs history of restless leg syndrome Blood pressure not controlled will add lisinopril Objective Vitals Vital Signs Date Time Temp Pulse Resp B/P (MAP) Pulse Ox O2 Delivery O2 Flow Rate FiO2 11/20/17 12:00 99.4 71 17 161/75 (103) 99 11/20/17 08:45 98.7 63 16 150/72 (98) 96 11/20/17 05:51 98.1 87 20 167/84 (111) 97 11/20/17 01:30 98.3 78 20 171/85 (113) 98 11/19/17 20:43 97.2 72 20 187/86 (119) 97 11/19/17 16:14 98.7 76 18 166/80 (108) 97 I/O 11/19/17 11/19/17 11/19/17 11/20/17 11/20/17 11/20/17 07:00 15:00 23:00 07:00 15:00 23:00 Intake Total 350 ml 100 ml 974 ml 100 ml Balance 350 ml 100 ml 974 ml 100 ml Intake IV Total 350 ml 100 ml 974 ml 100 ml # Voids 2 Result Diagram: 11/20/17 0550 11/20/17 0550 A/P Assessment and Plan - Acute Pancreatitis - H/O Crohn's disease CT of the abdomen/pelvis significant for cholelithiasis and mild prominence of the biliary tree with questionable filling defect in the distal common bile duct , suspicious for stone versus mass Lipase 2544 Appreciate GI consultation Nothing by mouth IV fluid hydration Caution with pain medications as patient has pain pump and took additional morphine this morning - Urinary tract infection UA significant for rare bacteria, 39 WBCs, large leukocyte esterase and positive nitrates Rocephin Urine culture pending -Uncontrolled hypertension Add lisinopril, Vasotec as needed - Chronic pain/anxiety/fibromyalgia/H/Orestless leg syndrome Check iron panel Continue home medications once reconciled Irasema De La Cruz MD Nov 20, 2017 15:48
[2017-11-20] MEDS ORDERED: DO NOT ADM ANY ANTICOAGULANT DRUGS PRN (16:56)
[2017-11-20] MEDS ORDERED: *PROMETHAZINE 25 MG/ML VIAL PERIprocedural use ONLY ONE (17:02)
[2017-11-20] MEDS ORDERED: *morphine SULFATE 4 MG/ML PERIprocedure ONLY ONE ×3 (17:03→17:20)
[2017-11-20] MEDS ORDERED: *LABETALOL HCL 100 MG/20 ML VIAL PERIprocedural Use ONLY ONE (17:03)
--- NOTE | 2017-11-20 17:10 | RADRPT ---
EXAM DATE/TIME: 11/20/2017 16:40 [facility] COMPARISON: No previous studies available for comparison. INDICATIONS : Obstruction. FLUORO TIME: 1.13 minutes IMAGE COUNT: 2 CONTRAST: Instilled by Ordering Physician MEDICAL HISTORY : Cardiovascular disease. Chronic obstructive pulmonary disease. Gastroesophageal reflux disease.Gallst ones SURGICAL HISTORY : Tubal ligation. ENCOUNTER: Initial ACUITY: 1 day PAIN SCORE: Non-responsive. LOCATION: abdomen. FINDINGS: An ERCP was performed by the ordering physician. The images demonstrate mild-moderate dilatation of the extrahepatic biliary tree. Possible small fill ing defects in the proximal common hepatic duct region. The duct tapers abruptly at the level of the ampulla. CONCLUSION: ERCP as above. Jose Echevarria MD on November 20, 2017 at 17:07 Board Certified Radiologist. This report was verified electronically.
[2017-11-20] MEDS ORDERED: *ENALAPRILAT 1.25 MG/ML VIAL PERIprocedural Use ONLY ONE (17:12)
[2017-11-20] MEDS ORDERED: IOHEXOL 300 MG/ML 100 ML BTL (for Rad CT) OTHER ONE (17:19)
[2017-11-20] MEDS ORDERED: *ONDANSETRON 4 MG VIAL PERIprocedural Use ONLY ONE (17:22)
--- NOTE | 2017-11-20 17:34 | PD.PROCEDR ---
GI Procedure PROCEDURE PERFORMED ERCP with sphincterotomy and balloon extraction INDICATION FOR PROCEDURE Biliary pancreatitis, abnormal findings on CT suggestive of choledocholithiasis PROCEDURE: The procedure, risks and benefits were discussed with Ms. Vasquez and informed consent was obtained. Anesthesia sedated her with Diprivan. She was placed in the left lateral decubitus position. ERCP: Patient was placed in a prone position. The Pentax videoscope was introduced through the oropharynx and advanced to the second portion of the duodenum where the ampula was identified. FINDINGS: The scope was positioned in the duodenum the ampulla appeared to be slightly bulging we were able to obtain easy cannulation of the common bile duct from the very first try there did appear to be a small filling defect at the distal portion of the common bile duct the rest of the common bile duct was mildly dilated otherwise free from any filling defects and the intrahepatics were unremarkable no gallbladder was seen I performed a generous sphincterotomy and then using a 12 mm balloon we were able to extract a small stone the obstructive cholangiogram was otherwise unremarkable and the procedure was then terminated ESTIMATED BLOOD LOSS: Minimal SPECIMENS REMOVED: None COMPLICATIONS: None IMPRESSION: Choledocholithiasis PLAN: Supportive care Monitor labs and transfuse as needed Davey Don MD Nov 20, 2017 17:34
[2017-11-20] MEDS ORDERED: *MEPERIDINE 25 MG INJ VIAL PERIprocedural Use ONLY ONE (17:37)
[2017-11-20 20:00] VITALS: BP 182/94; PULSE 90; RESP 18; TEMP 97.6; O2SAT 96
[2017-11-21] VITALS (11 sets, daily range): BP systolic 131–170; BP diastolic 80–106; PULSE 83–128; RESP 16–28; TEMP 95.9–99.6; O2SAT 96–100
[2017-11-21] MEDS: SODIUM CHLOR 0.9% 1000 ML INJ 1,000 ML IV SCH ×3 (05:33→16:45)
[2017-11-21 06:58] LABS: HEMATOCRIT 42.9 % (35.0-46.0); HEMOGLOBIN 14.7 GM/DL (11.6-15.3); MEAN CORPUSCULAR HEMOGLOBIN 28.4 PG (27.0-34.0); MEAN CORPUSCULAR HGB CONC 34.3 % (32.0-36.0); MEAN PLATELET VOLUME 8.2 FL (7.0-11.0); PLATELET COUNT 254 TH/MM3 (150-450); RED BLOOD COUNT 5.18 MIL/MM3 (4.00-5.30); RED CELL DISTRIBUTION WIDTH 14.7 % (11.6-17.2); WHITE BLOOD COUNT 21.7 TH/MM3 (4.0-11.0)
[2017-11-21 07:32] LABS: ALBUMIN 3.8 GM/DL (3.4-5.0); ALKALINE PHOSPHATASE 132 U/L (45-117); ALT (GPT) 30 U/L (10-53); AST (GOT) 65 U/L (15-37); BICARBONATE 21.8 MEQ/L (21.0-32.0); BLOOD UREA NITROGEN 17 MG/DL (7-18); CALCIUM 10.1 MG/DL (8.5-10.1); CHLORIDE 111 MEQ/L (98-107); CREATININE 1.04 MG/DL (0.50-1.00); GLOMERULAR FILTRATION RATE 54 ML/MIN (>89); GLUCOSE,RANDOM 130 MG/DL (74-106); SODIUM (NA) 143 MEQ/L (136-145); TOTAL BILIRUBIN ADULT 0.8 MG/DL (0.2-1.0); TOTAL PROTEIN 7.5 GM/DL (6.4-8.2)
[2017-11-21] MEDS: busPIRone HCL 10 MG TAB PO SCH ×2 (08:37→20:28)
[2017-11-21] MEDS: LISINOPRIL 5 MG TAB PO SCH (08:37)
[2017-11-21] MEDS: cefTRIAXone INJ 1,000 MG in SODIUM CHLORIDE 0.9% INJ 100 ML IV SCH (08:38)
[2017-11-21] MEDS: SODIUM CHLORIDE 0.9% FLUSH 10 ML FLUSH IV FLUSH SCH ×2 (08:38→20:34)
[2017-11-21] MEDS: METOPROLOL TARTRATE 25 MG TAB PO SCH ×2 (10:44→20:32)
[2017-11-21] MEDS: TRIAMCINOLONE ACETONIDE 0.1% CREAM 15 GM TOPICAL SCH ×2 (12:45→20:34)
--- NOTE | 2017-11-21 15:07 | HHI.PR ---
Subjective Remarks Patient looks lethargic, not answering question, just moaning She is afebrile, blood culture positive for 1 tube staph epidermis WBC went up today the 21 Objective Vitals Vital Signs Date Time Temp Pulse Resp B/P (MAP) Pulse Ox O2 Delivery O2 Flow Rate FiO2 11/21/17 12:00 97.8 128 16 145/99 (114) 97 11/21/17 08:00 98.0 103 16 132/95 (107) 96 11/21/17 04:00 97.4 110 22 170/94 (119) 96 11/21/17 00:00 98.7 94 22 144/106 (119) 97 11/20/17 20:00 97.6 90 18 182/94 (123) 96 11/20/17 17:45 98.9 64 20 177/86 (116) 97 11/20/17 17:30 68 20 178/84 (115) 100 11/20/17 17:15 63 22 180/94 (122) 100 11/20/17 16:57 99.3 71 18 193/93 (126) 98 I/O 11/20/17 11/20/17 11/20/17 11/21/17 11/21/17 11/21/17 07:00 15:00 23:00 07:00 15:00 23:00 Intake Total 100 ml 500 ml Output Total 0 ml Balance 100 ml 500 ml Intake IV Total 100 ml 100 ml Other 400 ml Output Urine Total 0 ml # Voids 2 2 1 # Bowel Movements 0 0 Result Diagram: 11/21/17 0540 11/21/17 0540 Objective Remarks GENERAL: This is a frail elderly lady who is lethargic CARDIOVASCULAR: Regular rate and rhythm without murmurs, gallops, or rubs. RESPIRATORY: fair air entry bilaterally. No wheezes, rales, or rhonchi. GASTROINTESTINAL: Abdomen soft, non-tender, nondistended. Normal active bowel sounds MUSCULOSKELETAL: Extremities without clubbing, cyanosis, or edema. NEURO: Patient is lethargic moves all ext x4 A/P Assessment and Plan 11/21: Worsening mental status patient is lethargic, increased white blood count 21k, we will send for blood culture, we will check blood culture on the lower extremity I will increase lisinopril and add Lopressor A/P: - Acute Pancreatitis - H/O Crohn's disease CT of the abdomen/pelvis significant for cholelithiasis and mild prominence of the biliary tree with questionable filling defect in the distal common bile duct , suspicious for stone versus mass Lipase 2940 Appreciate GI consultation Nothing by mouth IV fluid hydration Caution with pain medications as patient has pain pump and took additional morphine this morning - Urinary tract infection UA significant for rare bacteria, 39 WBCs, large leukocyte esterase and positive nitrates Rocephin Urine culture pending -Uncontrolled hypertension Add lisinopril, Vasotec as needed - Chronic pain/anxiety/fibromyalgia/H/Orestless leg syndrome Check iron panel Continue home medications once reconciled Discharge Planning Patient still not ready for discharge Irasema De La Cruz MD Nov 21, 2017 15:07
--- NOTE | 2017-11-21 16:10 | HHI.GIFU ---
Subjective Remarks Pt resting in bed. Seems disoriented somewhat. Speech difficult to understand. (Columba Malhotra) Objective Vitals I&O Vital Signs Date Time Temp Pulse Resp B/P (MAP) Pulse Ox O2 Delivery O2 Flow Rate FiO2 11/21/17 12:00 97.8 128 16 145/99 (114) 97 11/21/17 08:00 98.0 103 16 132/95 (107) 96 11/21/17 04:00 97.4 110 22 170/94 (119) 96 11/21/17 00:00 98.7 94 22 144/106 (119) 97 11/20/17 20:00 97.6 90 18 182/94 (123) 96 11/20/17 17:45 98.9 64 20 177/86 (116) 97 11/20/17 17:30 68 20 178/84 (115) 100 11/20/17 17:15 63 22 180/94 (122) 100 11/20/17 16:57 99.3 71 18 193/93 (126) 98 I/O 11/20/17 11/20/17 11/20/17 11/21/17 11/21/17 11/21/17 07:00 15:00 23:00 07:00 15:00 23:00 Intake Total 100 ml 500 ml Output Total 0 ml Balance 100 ml 500 ml Intake IV Total 100 ml 100 ml Other 400 ml Output Urine Total 0 ml # Voids 2 2 1 # Bowel Movements 0 0 Laboratory Laboratory Tests Test 11/21/17 05:40 White Blood Count 21.7 Red Blood Count 5.18 Hemoglobin 14.7 Hematocrit 42.9 Mean Corpuscular Volume 83.0 Mean Corpuscular Hemoglobin 28.4 Mean Corpuscular Hemoglobin Concent 34.3 Red Cell Distribution Width 14.7 Platelet Count 254 Mean Platelet Volume 8.2 Blood Urea Nitrogen 17 Creatinine 1.04 Random Glucose 130 Total Protein 7.5 Albumin 3.8 Calcium Level 10.1 Alkaline Phosphatase 132 Aspartate Amino Transf (AST/SGOT) 65 Alanine Aminotransferase (ALT/SGPT) 30 Total Bilirubin 0.8 Sodium Level 143 Potassium Level 3.2 Chloride Level 111 Carbon Dioxide Level 21.8 Anion Gap 10 Estimat Glomerular Filtration Rate 54 Lipase 181 Date/Time Source Procedure Growth Status 11/19/17 04:55 Blood Peripheral Aerobic Blood Culture - Preliminary Staph Sp Coagulase Negative Resulted 11/19/17 04:55 Blood Peripheral Anaerobic Blood Culture - Preliminary NO GROWTH IN 2 DAYS Resulted 11/19/17 04:05 Urine Clean Catch Urine Culture - Final Escherichia Coli Complete Imaging Last Impressions GI Procedure 11/20/17 0000 Signed Impressions: Service Date/Time: Monday, November 20, 2017 16:40 - CONCLUSION: ERCP as above. Jose Echevarria MD Chest X-Ray 11/19/174 Signed Impressions: Service Date/Time: Sunday, November 19, 2017 03:29 - CONCLUSION: No acute disease. There is no evidence for free air beneath the diaphragm. Ariel Nath MD Abdomen/Pelvis CT 11/19/17323 Signed Impressions: Service Date/Time: Sunday, November 19, 2017 04:57 - CONCLUSION: 1. Cholelithiasis and mild prominence of the biliary tree. There is a questionable filling defect in the distal common bile duct seen best on coronal imaging and suspect for choledocholith or mass. Consider MRCP and MRI of the abdomen with and without contrast for further evaluation of this finding. Ariel Nath MD Physical Exam HEENT: PERRL; normocephalic; atraumatic; diaphoretic CHEST: diminished CARDIAC: RRR ABDOMEN: Soft, mildly distended, nontender; no hepatosplenomegaly; bowel sounds are present in all four quadrants. EXTREMITIES: No clubbing, cyanosis, or edema. SKIN: Normal; no rash; appears jaundiced mildly CREATIVE SERVICES COORDINATOR: mildly confused (Columba Malhotra PIT SLAGMAN) Assessment and Plan Plan - Acute pancreatitis- likely biliary etiology. CT of the abdomen/pelvis done and that was significant for cholelithiasis and mild prominence of the biliary tree with questionable filling defect in the distal common bile duct, suspicious for stone versus mass. Labs with normal LfTs, high Lipase 2544. Patient reports subjective fever and chills. CBC unremarkable. Patient denies abd pain, change in bowels, change in urine, hematemesis or hematochezia. Denies previous hx of pancreatitis or liver disease, denies alcohol or illicit drug use. Reports nausea and one episode of vomiting the day before yesterday. - Hx of celiac dz- last EGD 5 yrs ago per pt, has been following gluten free diet, she consumes gluten every now and then but minimal - UTI- urine cx pending - involuntary leg spasms that wasn't relived with morphine. per attending - past medical history significant for chronic pain with morphine pump, fibromyalgia, per attending 11/21/17 s/p ERCP with sphincterotomy and balloon extraction, finding choledocholithiasis. AST worsened today, mild increase 0.8. tumor markers WNL. lipase WNL. WBC significant increase today, appears diaphoretic. tachycardic. Plan: - rck CBC, CMP, lipase, lactic acid - telemetry - NPO - further recs to follow - Patient seen and examined by Dr. Colon and myself and this note is written on her behalf. (Columba Malhotra) Physician Comments seen, examined agree with above await neuro work-up so far no indication of sepsis from recent procedure (Sangita Colon MD) Columba Malhotra Nov 21, 2017 16:10 Sangita Colon MD Nov 21, 2017 18:31
[2017-11-21] MEDS ORDERED: DIATRIZOATE MEGLUM/DIATRIZOATE SOD 9 ML CUP PO ONE (16:30)
[2017-11-21 17:36] LABS: ALBUMIN 3.8 GM/DL (3.4-5.0); ALT (GPT) 34 U/L (10-53); AST (GOT) 69 U/L (15-37); BICARBONATE 21.6 MEQ/L (21.0-32.0); BLOOD UREA NITROGEN 20 MG/DL (7-18); CALCIUM 10.8 MG/DL (8.5-10.1); CHLORIDE 115 MEQ/L (98-107); CREATININE 1.08 MG/DL (0.50-1.00); GLOMERULAR FILTRATION RATE 51 ML/MIN (>89); GLUCOSE,RANDOM 139 MG/DL (74-106); SODIUM (NA) 146 MEQ/L (136-145)
[2017-11-21 17:39] LABS: ALKALINE PHOSPHATASE 138 U/L (45-117); TOTAL BILIRUBIN ADULT 0.9 MG/DL (0.2-1.0); TOTAL PROTEIN 7.5 GM/DL (6.4-8.2)
--- NOTE | 2017-11-21 21:41 | RADRPT ---
EXAM DATE/TIME: 11/21/2017 21:25 [facility] COMPARISON: CT BRAIN W/O CONTRAST, May 05, 2016, 16:11. INDICATIONS : Altered mental status. RADIATION DOSE: 50.65 CTDIvol (mGy) MEDICAL HISTORY : Cardiovascular disease. SURGICAL HISTORY : None. ENCOUNTER: Initial ACUITY: 1 day PAIN SCALE: Non-responsive LOCATION: cranial TECHNIQUE: Multiple contiguous axial images were obtained of the head. Using automated exposure control and adj ustment of the mA and/or kV according to patient size, radiation dose was kept as low as reasonably a chievable to obtain optimal diagnostic quality images. DICOM format image data is available electro nically for review and comparison. FINDINGS: Today's exam is compared to the prior study. There is a new large acute intraparenchymal hemorrhage i nvolving the left mid to posterior parietal lobe. The hemorrhage in the left mid parietal lobe measur es at least 5.2 cm in AP diameter. In the posterior parietal area of hemorrhage measures 6.8 cm. Ther e is mass effect and midline shift to the right by 9 mm. There is subarachnoid hemorrhage seen along the left cerebral hemisphere. The ventricles are normal in size. There is effacement of the sulci jagruti ecially on the left side characteristic of cerebral edema. The posterior fossa is grossly unremarkabl e. The calvarium is grossly intact. The findings were called immediately by telephone to the nurse taking care of this patient. CONCLUSION: 1. Large acute intraparenchymal hemorrhage involving the left mid to posterior parietal lobe. 2. Mass effect in midline shift to the right by 9 mm. 3. Subarachnoid hemorrhage and cerebral edema on the left side. Meir Donnelly MD on November 21, 2017 at 21:34 Board Certified Radiologist. This report was verified electronically.
[2017-11-21] MEDS ORDERED: IOHEXOL 350 MG/ML 10 ML VIAL (for RAD DIAG) IVCONTRAST ONE (21:50)
--- NOTE | 2017-11-21 21:57 | RADRPT ---
EXAM DATE/TIME: 11/21/2017 21:37 [facility] COMPARISON: CT ABDOMEN & PELVIS W CONTRAST, November 19, 2017, 4:57. INDICATIONS : Abdominal pain, evaluate for pancreatitis. IV CONTRAST: 70 cc Omnipaque 350 (iohexol) IV ORAL CONTRAST: Prescribed oral contrast ingested. RADIATION DOSE: 16.48 CTDIvol (mGy) MEDICAL HISTORY : Cardiovascular disease. Chronic obstructive pulmonary disease. Ulcers.gerd,kidney stones, sickle cell SURGICAL HISTORY : Tubal ligation. ENCOUNTER: Initial ACUITY: 1 day PAIN SCALE: 0/10 LOCATION: abdomen TECHNIQUE: Volumetric scanning of the abdomen and pelvis was performed. Using automated exposure control and ad justment of the mA and/or kV according to patient size, radiation dose was kept as low as reasonably achievable to obtain optimal diagnostic quality images. DICOM format image data is available electro nically for review and comparison. FINDINGS: Today's exam is compared to the prior study of 11/19/2017. There's been no new or significant changes c ompared to the prior study. There is no evidence of pancreatitis. The pancreas is within normal limit s. There are multiple stones in the gallbladder. No significant biliary tract obstruction is seen. Th e previously noted mild biliary tract dilatation has resolved. There are multiple calcified bilateral renal stones. No significant change compared to the prior study. The bowel gas pattern is within nor mal limits. There is stool throughout the colon. CONCLUSION: 1. No evidence to indicate pancreatitis. 2. Multiple stones in the gallbladder. 3. Multiple bilateral renal calculi.. 4. No significant changes compared to the prior exam. Meir Donnelly MD on November 21, 2017 at 21:52 Board Certified Radiologist. This report was verified electronically.
[2017-11-21] MEDS ORDERED: niCARdipine INJ 25 MG in SODIUM CHLOR 0.9% 250 ML INJ 240 ML IV PRN (22:15)
[2017-11-21] MEDS ORDERED: MANNITOL ONE (22:23)
[2017-11-21] MEDS ORDERED: MANNITOL INJ 50 ML ONE ×2 (22:24→22:26)
--- NOTE | 2017-11-21 23:12 | PD.CONS ---
[facility] Service Critical Care Medicine Consult [facility]ed By [facility] Phys[facility] History of Present Illness 62-year-old female with a past medical history significant for chronic pain with morphine pump, fibromyalgia, celiac disease and anxiety presented initially to the hospital for evaluation of leg spasms. The patient reports that she woke up approximately 1 AM and "could not control her legs." Her daughter gave her a 30 mg tablet of morphine to help with her symptoms yet they persisted. She was admitted to [facility] for further evaluation where she became suddenly lethargic and weak on the right side. The CT of the head was done immediately and shows large posterior parietal lobe hemorrhagic stroke with brain edema. She was immediately intubated for an airway protection and started on hyperosmolar therapy. Review of Systems ROS Unobtainable patient is sedated and intubated Past Family Social History Allergies: Coded Allergies: bupropion (Unverified Allergy, Severe, 05/30/17) diclofenac (Unverified Allergy, Severe, ULCER HX, 05/30/17) erythromycin base (Unverified Allergy, Severe, 05/30/17) etodolac (Unverified Allergy, Severe, ULCER HX, 05/30/17) flurbiprofen (Unverified Allergy, Severe, ULCER HX, 05/30/17) gabapentin (Unverified Allergy, Severe, 05/30/17) gluten (Unverified Allergy, Severe, BLOATING, 05/30/17) ibuprofen (Unverified Allergy, Severe, ULCER HX, 05/30/17) indomethacin (Unverified Allergy, Severe, ULCER HX, 05/30/17) ketoprofen (Unverified Allergy, Severe, ULCER HX, 05/30/17) ketorolac (Unverified Allergy, Severe, ULCER HX, 05/30/17) naproxen (Unverified Allergy, Severe, ULCER HX, 05/30/17) oxaprozin (Unverified Allergy, Severe, ULCER HX, 05/30/17) penicillin G (Unverified Allergy, Severe, 05/30/17) sulfamethoxazole (Unverified Allergy, Severe, 05/30/17) topiramate (Unverified Allergy, Severe, 05/30/17) trimethoprim (Unverified Allergy, Severe, 05/30/17) Past Medical History Celiac disease Fibromyalgia Chronic pain Anxiety Past Surgical History Fusion C4-C5 Morphine pump placement Reported Medications Reported Meds & Active Scripts Active Reported Effexor (Venlafaxine HCl) 50 Mg Tab 50 Mg PO Q12H Polyethylene Glycol 3350 Powder (Polyethylene Glycol) 17 Gram Pow 17 Gm PO DAILY Pantoprazole (Pantoprazole Sodium) 40 Mg Tab 40 Mg PO DAILY Morphabond ER 12 HR (Morphine Sulfate) 30 Mg Tab 30 Mg PO Q12H Hydrocodone-Acetaminophen 7.5 Mg-325 Mg Tab 1 Tab PO Q6H PRN Buspirone (Buspirone HCl) 30 Mg Tab 30 Mg PO BID Proair Hfa 8.5 GM Inh (Albuterol Sulfate) 90 Mcg/Act Aer 2 Puff INH Q6H PRN 108 mcg/actuation Fioricet (Bjzfqyvdso-Yduuulvgblcjo-Vekgabmk) 50-300-40 Mg Cap 1 Cap PO Q4H PRN Active Ordered Medications Current Medications Medications (Trade) Dose Ordered Sig/Rachel Route PRN Reason Start Time Stop Time Status Last Admin Dose Admin Sodium Chloride 1,000 ml @ 150 mls/hr Q6H40M IV 11/19/17 04:42 11/22/17 00:01 Sodium Chloride (NS Flush) 2 ml UNSCH PRN IV FLUSH FLUSH AFTER USING IV ACCESS 11/19/17 04:45 Sodium Chloride (NS Flush) 2 ml BID IV FLUSH 11/19/17 09:00 11/21/17 08:38 Ondansetron HCl (Zofran Inj) 4 mg Q6H PRN IVP NAUSEA OR VOMITING 11/19/17 04:45 Heparin Sodium (Porcine) (Heparin Inj) 5,000 units Q8H SQ 11/19/17 05:00 Future Hold 11/19/17 05:43 Naloxone HCl (Narcan Inj) 0.4 mg UNSCH PRN IV PUSH SEE LABEL COMMENTS 11/19/17 04:45 Ceftriaxone Sodium 1000 mg/ Sodium Chloride 100 ml @ 200 mls/hr Q24H IV 11/19/17 08:00 11/21/17 08:38 Lactated Ringer's 1,000 ml @ 30 mls/hr Q24H PRN IV SEE LABEL COMMENTS 11/20/17 03:45 11/23/17 03:44 Sodium Chloride 500 ml @ 30 mls/hr [id number] PRN IV SEE LABEL COMMENTS 11/20/17 03:45 11/23/17 03:44 Metoprolol Tartrate (Lopressor) 25 mg RAILROAD OPERATOR PRN PO SEE LABEL COMMENTS 11/20/17 03:45 11/23/17 03:44 Povidone Iodine (Betadine 5% Antisepsis Kit) 1 applic RAILROAD OPERATOR PRN EACH NARE SEE LABEL COMMENTS 11/20/17 03:45 11/23/17 03:44 Chlorhexidine Gluconate (Chlorhexidine 2% Cloth) 3 pack RAILROAD OPERATOR PRN TOPICAL SEE LABEL COMMENTS 11/20/17 03:45 11/23/17 03:44 Buspirone HCl (Buspar) 30 mg BID PO 11/20/17 09:00 11/21/17 20:28 Acetaminophen/ Butalbital/ Caffeine (Fioricet 325-50-40) 1 tab Q4H PRN PO HEADACHE 11/20/17 05:30 11/20/17 20:33 Enalaprilat (Vasotec Inj) 1.25 mg Q6H PRN IV PUSH bp>160/90 11/20/17 10:00 Triamcinolone Acetonide (Aristocort 0.1% Cream) 1 applic BID TOPICAL 11/21/17 12:00 11/21/17 20:34 Lisinopril (Prinivil) 20 mg DAILY PO 11/22/17 09:00 Metoprolol Tartrate (Lopressor) 12.5 mg Q12HR PO 11/21/17 10:00 11/21/17 20:32 Nicardipine HCl 25 mg/Sodium Chloride 250 ml @ 50 mls/hr TITRATE PRN IV Blood pressure management 11/21/17 22:15 Acetaminophen 100 ml @ 400 mls/hr Q6H PRN IV INCREASED TEMPERATURE 11/22/17 00:45 Propofol 100 ml @ 2.265 mls/ hr TITRATE PRN IV Sedation 11/22/17 00:45 Sodium Chloride 1,000 ml @ 999 mls/hr BOLUS ONCE IV 11/22/17 03:00 11/22/17 04:00 Sodium Chloride 1,000 ml @ 999 mls/hr BOLUS ONCE IV 11/22/17 03:00 11/22/17 04:00 Sodium Chloride 500 ml @ 10 mls/hr ONCE ONCE IV 11/22/17 03:00 11/24/17 04:59 UNV Family History Both parents with coronary artery disease. Social History Smokes approximately one pack per day. Remote history of alcohol. Denies illicit drugs. Physical Exam Vital Signs Vital Signs Date Time Temp Pulse Resp B/P (MAP) Pulse Ox O2 Delivery O2 Flow Rate FiO2 11/21/17 20:30 109 11/21/17 20:20 83 11/21/17 20:00 99.0 105 18 149/103 (118) 97 11/21/17 16:00 95.9 88 16 131/80 (97) 99 11/21/17 12:00 97.8 128 16 145/99 (114) 97 11/21/17 08:00 98.0 103 16 132/95 (107) 96 11/21/17 04:00 97.4 110 22 170/94 (119) 96 11/21/17 00:00 98.7 94 22 144/106 (119) 97 Physical Exam GENERAL: Well-nourished, well-developed patient. Prior intubation patient is lethargic but arousable following commands SKIN: Warm and dry. HEAD: Normocephalic. EYES: No scleral icterus. No injection or drainage. NECK: Supple, trachea midline. No JVD or lymphadenopathy. CARDIOVASCULAR: Regular rate and rhythm without murmurs, gallops, or rubs. RESPIRATORY: Breath sounds equal bilaterally. No accessory muscle use. GASTROINTESTINAL: Abdomen soft, non-tender, nondistended. MUSCULOSKELETAL: No cyanosis, or edema. BACK: Nontender without obvious deformity. NEURO EXAM: GCS: 14 Mental Status: The patient is alert and oriented to person, place, with slurred speech. She is flaccid on right side spontaneously following commands on the left. Pupils are 2 mm bilaterally and brisk Laboratory Laboratory Tests Test 11/21/17 05:40 11/21/17 16:59 11/21/17 17:10 White Blood Count 21.7 Red Blood Count 5.18 Hemoglobin 14.7 Hematocrit 42.9 Mean Corpuscular Volume 83.0 Mean Corpuscular Hemoglobin 28.4 Mean Corpuscular Hemoglobin Concent 34.3 Red Cell Distribution Width 14.7 Platelet Count 254 Mean Platelet Volume 8.2 Blood Urea Nitrogen 17 20 Creatinine 1.04 1.08 Random Glucose 130 139 Total Protein 7.5 7.5 Albumin 3.8 3.8 Calcium Level 10.1 10.8 Alkaline Phosphatase 132 138 Aspartate Amino Transf (AST/SGOT) 65 69 Alanine Aminotransferase (ALT/SGPT) 30 34 Total Bilirubin 0.8 0.9 Sodium Level 143 146 Potassium Level 3.2 3.3 Chloride Level 111 115 Carbon Dioxide Level 21.8 21.6 Anion Gap 10 9 Estimat Glomerular Filtration Rate 54 51 Lipase 181 123 Lactic Acid Level 2.1 Ammonia 16 Date/Time Source Procedure Growth Status 11/19/17 04:55 Blood Peripheral Aerobic Blood Culture - Preliminary Staph Sp Coagulase Negative Resulted 11/19/17 04:55 Blood Peripheral Anaerobic Blood Culture - Preliminary NO GROWTH IN 2 DAYS Resulted 11/19/17 04:05 Urine Clean Catch Urine Culture - Final Escherichia Coli Complete Result Diagram: 11/21/17 0540 11/21/17 1659 Assessment and Plan Assessment and Plan Respiratory failure - Intubated for an airway protection - No weaning until neurologically improved - DuoNeb's when necessary - ABG and CXR daily - CO2 goal 35-45 Intracranial bleed Brain edema - Coagulations within normal limits - Blood pressure control with SBP goal less than 140 - Neurosurgical consultation - Mannitol 1 g/kg 1 - 3% sodium chloride infusion Chronic pain syndrome - Fentanyl drip - Monitor for withdrawal Hypertension - Nicardipine drip - SBP goal less than 140 DVT GI prophylaxis - Teds SCDs - No pharmacological DVT prophylaxis due to acute ICH - IV Pepcid Critical Care: The total critical care time was 35 minutes. Time to perform other separately billable procedures was not included in the critical care time. Colt Griffith MD Nov 21, 2017 23:12
[2017-11-21] MEDS ORDERED: ETOMIDATE 40 MG/20 ML VIAL ONE (23:29)
[2017-11-21] MEDS ORDERED: ROCURONIUM INJ 50 MG/5 ML VIAL IV SCH (23:30)
[2017-11-21] MEDS ORDERED: ROCURONIUM INJ 50 MG/5 ML VIAL ONE (23:30)
[2017-11-21] MEDS ORDERED: ETOMIDATE 20 MG/10 ML VIAL IV PUSH SCH (23:30)
[2017-11-21] MEDS ORDERED: MANNITOL 12.5 GM/50 ML VIAL IV SCH (23:41)
[2017-11-21] MEDS ORDERED: ROCURONIUM INJ 50 MG/5 ML VIAL IV PUSH ONE (23:45)
[2017-11-21] MEDS ORDERED: ETOMIDATE 20 MG/10 ML VIAL IV PUSH ONE (23:45)
[2017-11-21] MEDS ORDERED: MANNITOL 12.5 GM/50 ML VIAL IV ONE (23:45)
[2017-11-21] MEDS ORDERED: PROPOFOL 1000 MG/100 ML IV PRN (23:45)
[2017-11-22] VITALS (17 sets, daily range): BP systolic 96–143; BP diastolic 58–98; PULSE 80–103; RESP 14–17; TEMP 99–102; O2SAT 98–100
[2017-11-22] MEDS: SODIUM CHLOR 0.9% 1000 ML INJ 1,000 ML IV SCH ×3 (00:01→22:39)
[2017-11-22 00:08] LABS: INTERNATIONAL NORMALIZED RATIO 1.2 RATIO; PROTHROMBIN TIME - PATIENT 12.1 SEC (9.8-11.6)
[2017-11-22] MEDS ORDERED: SODIUM CHLOR 0.9% 1000 ML INJ 1,000 ML IV ONE ×2 (03:00)
[2017-11-22] MEDS: 3% SALINE INJ 500 ML IV SCH ×2 (03:00→18:09)
--- NOTE | 2017-11-22 03:20 | RADRPT ---
EXAM DATE/TIME: 11/22/2017 03:01 [place] COMPARISON: CHEST SINGLE AP, November 19, 2017, 3:29. INDICATIONS : Central line placement. MEDICAL HISTORY : Cardiovascular disease. Chronic obstructive pulmonary disease. SURGICAL HISTORY : Tubal ligation. ENCOUNTER: Subsequent ACUITY: 1 week PAIN SCORE: 0/10 LOCATION: Bilateral chest FINDINGS: Portable AP view of the chest demonstrates a normal-sized cardiac silhouette. Right IJ central line h as been placed with distal tip in the screw vena cava. There is new fullness in the right paratrachea l location. Endotracheal tube is present with distal tip measuring 3.7 cm from the lazaro. Lungs are underinflated with likely atelectasis at the bases. No pleural effusion or pneumothorax is identified . There appears to be some type of skinfold simulating a right pneumothorax. CONCLUSION: 1. Right IJ line distal tip is in the SVC. There is a new masslike fullness to the right paratracheal region. Given the recent central line placement this could represent a hematoma. Consider chest CT w ith IV contrast for further evaluation when patient condition permits. 2. Underinflation with atelectasis. No pneumothorax is appreciated. Jose Mccartney MD on November 22, 2017 at 3:16 Board Certified Radiologist. This report was verified electronically.
--- NOTE | 2017-11-22 03:21 | PD.PROCEDR ---
Procedure Note Procedure Endotracheal Intubation A time-out was completed verifying correct patient, procedure, site, positioning , and special equipment if applicable. The patient was placed in a flat position. Sedation was obtained using Etomidate 20mg. The patient was easily ventilated using an ambu bag. The [employer]/ MAC 4 BLADE was used and inserted into the oropharynx at which time there was a Grade 1 view of the vocal cords. A 8-mongolian endotracheal tube was inserted and visualized going through the vocal cords. The stylette was removed. Colorimetric change was visualized on the CO2 meter. Breath sounds were heard in both lung urena equally. The endotracheal tube was placed at 23 cm, measured at the teeth. A chest x-ray was ordered to assess for pneumothorax and verify endotrachealtube placement. Estimated Blood Loss: 0 The patient tolerated the procedure well and there were no complications. Colt Griffith MD Nov 22, 2017 03:21
--- NOTE | 2017-11-22 03:21 | PD.PROCEDR ---
Procedure Note Procedure Centerline placement A time-out was completed verifying correct patient, procedure, site, positioning , and special equipment if applicable. The patient was placed in a dependent position appropriate for central line placement based on the vein to be cannulated. The patients right neck was prepped and draped in sterile fashion. 1% Lidocaine was used to anesthetize the surrounding skin area. A triple lumen 9 -[place] Cordis catheter was introduced into the the internal jugular vein using the Seldinger technique and under ultrasound guidance. The catheter was threaded smoothly over the guide wire and appropriate blood return was obtained. Each lumen of the catheter was evacuated of air and flushed with sterile saline. The catheter was then sutured in place to the skin and a sterile dressing applied. Perfusion to the extremity distal to the point of catheter insertion was checked and found to be adequate. Estimated Blood Loss: 1ml The patient tolerated the procedure well and there were no complications. Colt Griffith MD Nov 22, 2017 03:21
[2017-11-22] MEDS: FAMOTIDINE 20 MG/2 ML VIAL IV PUSH SCH ×2 (04:00→14:58)
[2017-11-22] MEDS ORDERED: LIDOCAINE 1%/EPINEPHrine 1:100,000 SOLN 50 ML VIAL ONE (04:02)
[2017-11-22] MEDS ORDERED: THROMBIN (TOPICAL) 5,000 UNIT VIAL ONE ×2 (04:02→05:36)
[2017-11-22] MEDS ORDERED: GELFOAM SIZE 100 ONE (04:02)
[2017-11-22] MEDS ORDERED: GENTAMICIN SULFATE 80 MG/2 ML VIAL ONE (04:02)
[2017-11-22] MEDS ORDERED: BUPIVACAINE/EPINEPHRINE 0.5% PF 30 ML VIAL ONE (04:05)
--- NOTE | 2017-11-22 04:12 | PD.CONS ---
History of Present Illness Service Neurosurgery Consult Requested By Dr. Griffith, Director Of Testing Reason for Consult Hemorrhagic stroke Primary Care Physician [facility] Diagnoses: History of Present Illness 62-year-old female admitted on 11/19/2017 after she presented to the emergency room with symptoms that seem to be related to morphine withdrawal with the shaking in her lower extremities along with the anxiety abdominal pain and nausea. She has an intrathecal pain pump placed to which the daughter states enters into the cervical and lumbar spine last year with a last pump refill with morphine 3 months ago. The pain specialist informed her that she could not refill the pump anymore since the [place] was not authorizing this. She has a past medical history significant for chronic neck and back pain with history of cervical and lumbar spine surgeries, COPD, fibromyalgia, celiac disease and anxiety. She was admitted to [facility] for further evaluation where she became suddenly lethargic, aphasic and weak on the right side yesterday after the endoscopy for biliary obstruction. The CT of the head was done and shows large posterior parietal lobe hemorrhagic stroke with brain edema. She was transferred to the intensive care unit and intubated for an airway protection and started on hyperosmolar therapy. Neurosurgery has been consulted this morning for the cerebral hemorrhage. Review of Systems ROS Limitations: Intubated, Unresponsive Constitutional: COMPLAINS OF: Fever Respiratory: COMPLAINS OF: Cough, Shortness of breath Gastrointestinal: COMPLAINS OF: Abdominal pain, Nausea, Vomiting Genitourinary: COMPLAINS OF: Urinary frequency, Dysuria Musculoskeletal: COMPLAINS OF: Back pain, Neck pain Neurologic: COMPLAINS OF: Headache, Localized weakness, Speech Problems, Tremor Psychiatric: COMPLAINS OF: Confusion Past Family Social History Allergies: Coded Allergies: bupropion (Unverified Allergy, Severe, 05/30/17) diclofenac (Unverified Allergy, Severe, ULCER HX, 05/30/17) erythromycin base (Unverified Allergy, Severe, 05/30/17) etodolac (Unverified Allergy, Severe, ULCER HX, 05/30/17) flurbiprofen (Unverified Allergy, Severe, ULCER HX, 05/30/17) gabapentin (Unverified Allergy, Severe, 05/30/17) gluten (Unverified Allergy, Severe, BLOATING, 05/30/17) ibuprofen (Unverified Allergy, Severe, ULCER HX, 05/30/17) indomethacin (Unverified Allergy, Severe, ULCER HX, 05/30/17) ketoprofen (Unverified Allergy, Severe, ULCER HX, 05/30/17) ketorolac (Unverified Allergy, Severe, ULCER HX, 05/30/17) naproxen (Unverified Allergy, Severe, ULCER HX, 05/30/17) oxaprozin (Unverified Allergy, Severe, ULCER HX, 05/30/17) penicillin G (Unverified Allergy, Severe, 05/30/17) sulfamethoxazole (Unverified Allergy, Severe, 05/30/17) topiramate (Unverified Allergy, Severe, 05/30/17) trimethoprim (Unverified Allergy, Severe, 05/30/17) Past Medical History COPD Celiac disease Fibromyalgia Chronic pain Anxiety Past Surgical History Spinal intrathecal morphine pain pump placement a year ago Cervical and lumbar spine surgeries Active Ordered Medications Current Medications Ondansetron HCl (Zofran Inj) 4 mg ONCE ONCE IVP Last administered on 11/19/17at 04:43; Start 11/19/17 at 03:30; Stop 11/19/17 at 03:31; Status DC Sodium Chloride 1,000 ml @ 125 mls/hr Q8H IV Last administered on 11/19/17at 04: 43; Start 11/19/17 at 03:24; Stop 11/19/17 at 04:48; Status DC Sodium Chloride (NS Flush) 2 ml UNSCH PRN IV FLUSH FLUSH AFTER USING IV ACCESS ; Start 11/19/17 at 03:30; Status Cancel Levofloxacin/ Dextrose 100 ml @ 100 mls/hr ONCE ONCE IV Last administered on 11/19/17at 05:20; Start 11/19/17 at 04:30; Stop 11/19/17 at 05:29; Status DC Sodium Chloride 1,000 ml @ 75 mls/hr [id number] IV Last administered on 11/22/17at 00:01; Start 11/19/17 at 04:42 Sodium Chloride (NS Flush) 2 ml UNSCH PRN IV FLUSH FLUSH AFTER USING IV ACCESS ; Start 11/19/17 at 04:45 Sodium Chloride (NS Flush) 2 ml BID IV FLUSH Last administered on 11/21/17at 08: 38; Start 11/19/17 at 09:00 Ondansetron HCl (Zofran Inj) 4 mg Q6H PRN IVP NAUSEA OR VOMITING; Start at 04:45 Heparin Sodium (Porcine) (Heparin Inj) 5,000 units Q8H SQ Last administered on 11/19/17at 05:43; Start 11/19/17 at 05:00; Stop 11/22/17 at 03:20; Status DC Naloxone HCl (Narcan Inj) 0.4 mg UNSCH PRN IV PUSH SEE LABEL COMMENTS; Start at 04:45 Ceftriaxone Sodium 1000 mg/ Sodium Chloride 100 ml @ 200 mls/hr Q24H IV Last administered on 11/21/17at 08:38; Start 11/19/17 at 08:00 Iohexol (Omnipaque 350 Inj) 75 ml STK-MED ONCE IVCONTRAST Last administered on 11/19/17at 04:57; Start 11/19/17 at 04:57; Stop 11/19/17 at 04:58; Status DC Lorazepam (Ativan Inj) 0.5 mg ONCE ONCE IV PUSH ; Start 11/19/17 at 06:00; Stop 11/19/17 at 06:01; Status DC Lorazepam (Ativan) 2 mg ONCE ONCE PO Last administered on 11/19/17at 17:50; Start 11/19/17 at 17:30; Stop 11/19/17 at 17:31; Status DC Lorazepam (Ativan) 2 mg ONCE ONCE PO Last administered on 11/20/17at 01:35; Start 11/20/17 at 01:15; Stop 11/20/17 at 01:16; Status DC Lactated Ringer's 1,000 ml @ 30 mls/hr Q24H PRN IV SEE LABEL COMMENTS; Start at 03:45; Stop 11/23/17 at 03:44 Sodium Chloride 500 ml @ 30 mls/hr [id number] PRN IV SEE LABEL COMMENTS; Start 11/20/17 at 03:45; Stop 11/23/17 at 03:44 Metoprolol Tartrate (Lopressor) 25 mg CONSUMER INSIGHT ANALYST PRN PO SEE LABEL COMMENTS; Start 11/20/17 at 03:45; Stop 11/23/17 at 03:44 Povidone Iodine (Betadine 5% Antisepsis Kit) 1 applic CONSUMER INSIGHT ANALYST PRN EACH NARE SEE LABEL COMMENTS; Start 11/20/17 at 03:45; Stop 11/23/17 at 03:44 Chlorhexidine Gluconate (Chlorhexidine 2% Cloth) 3 pack CONSUMER INSIGHT ANALYST PRN TOPICAL SEE LABEL COMMENTS; Start 11/20/17 at 03:45; Stop 11/23/17 at 03:44 Buspirone HCl (Buspar) 30 mg BID PO Last administered on 11/21/17at 20:28; Start 11/20/17 at 09:00 Acetaminophen/ Butalbital/ Caffeine (Fioricet 325-50-40) 1 tab Q4H PRN PO HEADACHE Last administered on 11/20/17at 20:33; Start 11/20/17 at 05:30 Lisinopril (Prinivil) 5 mg DAILY PO Last administered on 11/21/17at 08:37; Start 11/20/17 at 10:00; Stop 11/21/17 at 09:38; Status DC Enalaprilat (Vasotec Inj) 1.25 mg Q6H PRN IV PUSH bp>160/90; Start 11/20/17 at 10:00 Promethazine HCl (*PHENERGAN INJ PERIprocedural ONLY) 25 mg STK-MED ONCE .ROUTE Last administered on 11/20/17at 17:02; Start 11/20/17 at 17:02; Stop 11/20/17 at 17:03; Status DC Morphine Sulfate (*morphine INJ PERIprocedure ONLY) 4 mg STK-MED ONCE .ROUTE Last administered on 11/20/17at 17:03; Start 11/20/17 at 17:03; Stop 11/20/17 at 17: 04; Status DC Fentanyl Citrate (fentaNYL INJ) 100 mcg STK-MED ONCE .ROUTE ; Start 11/20/17 at 17:03; Stop 11/20/17 at 17:04; Status DC Labetalol HCl (*TRANDATE INJ PERIprocedural Use ONLY) 100 mg STK-MED ONCE .ROUTE ; Start 11/20/17 at 17:03; Stop 11/20/17 at 17:04; Status DC Fentanyl Citrate (fentaNYL INJ) 100 mcg STK-MED ONCE .ROUTE ; Start 11/20/17 at 17:03; Stop 11/20/17 at 17:04; Status DC Morphine Sulfate (*morphine INJ PERIprocedure ONLY) 4 mg STK-MED ONCE .ROUTE Last administered on 11/20/17 17:11; Start 11/20/17 at 17:11; Stop 11/20/17 at 17: 12; Status DC Enalaprilat (*VASOTEC INJ PERIprocedural Use ONLY) 1.25 mg STK-MED ONCE .ROUTE Last administered on 11/20/17 17:12; Start 11/20/17 at 17:12; Stop 11/20/17 at 17: 13; Status DC Miscellaneous Information ALL NURSING DEPARTME... UNSCH PRN .XX SEE LABEL COMMENTS; Start 11/20/17 at 16:56; Stop 11/21/17 at 16:55; Status DC Iohexol (OMNIPAQUE 300 INJ (Rad CT)) 50 ml STK-MED ONCE OTHER ; Start 11/20/17 at 17:19; Stop 11/20/17 at 17:20; Status DC Morphine Sulfate (*morphine INJ PERIprocedure ONLY) 4 mg STK-MED ONCE .ROUTE Last administered on 11/20/17 17:20; Start 11/20/17 at 17:20; Stop 11/20/17 at 17: 21; Status DC Ondansetron HCl (*ZOFRAN INJ PERIprocedural ONLY) 4 mg STK-MED ONCE .ROUTE Last administered on 11/20/17 17:22; Start 11/20/17 at 17:22; Stop 11/20/17 at 17: 23; Status DC Meperidine HCl (*DEMEROL INJ PERIprocedural ONLY) 25 mg STK-MED ONCE .ROUTE Last administered on 11/20/17 17:37; Start 11/20/17 at 17:37; Stop 11/20/17 at 17: 38; Status DC Triamcinolone Acetonide (Aristocort 0.1% Cream) 1 applic BID TOPICAL Last administered on 11/21/17 20:34; Start 11/21/17 at 12:00 Lisinopril (Prinivil) 20 mg DAILY PO ; Start 11/22/17 at 09:00 Metoprolol Tartrate (Lopressor) 12.5 mg Q12HR PO Last administered on 2/6/18at 20:32; Start 11/21/17 at 10:00 Diatrizoate Meglum/ Diatrizoate Sod (Md Miller Liq) 18 ml ONCE ONCE PO Last administered on 11/21/17at 16:45; Start 11/21/17 at 16:30; Stop 11/21/17 at 16: 31; Status DC Iohexol (Omnipaque 350 Inj) 70 ml STK-MED ONCE IVCONTRAST Last administered on 11/21/17at 21:52; Start 11/21/17 at 21:50; Stop 11/21/17 at 21:51; Status DC Nicardipine HCl 25 mg/Sodium Chloride 250 ml @ 50 mls/hr TITRATE PRN IV Blood pressure management; Start 11/21/17 at 22:15 Mannitol 300 ml @ As Directed STK-MED ONCE .ROUTE ; Start 11/21/17 at 22:23; Stop 11/21/17 at 22:24; Status DC Mannitol 50 ml @ As Directed STK-MED ONCE .ROUTE ; Start 11/21/17 at 22:24; Stop 11/21/17 at 22:25; Status DC Mannitol 50 ml @ As Directed STK-MED ONCE .ROUTE ; Start 11/21/17 at 22:26; Stop 11/21/17 at 22:27; Status DC Etomidate (Amidate Inj) 40 mg STK-MED ONCE .ROUTE ; Start 11/21/17 at 23:29; Stop 11/21/17 at 23:30; Status DC Rocuronium [place] (Zemuron Inj) 50 mg STK-MED ONCE .ROUTE ; Start 11/21/17 at 23 :30; Stop 11/21/17 at 23:31; Status DC Mannitol (Mannitol Inj) 70 gm ONCE ONCE IV Last administered on 11/22/17at 00:01 ; Start 11/21/17 at 23:45; Stop 11/21/17 at 23:50; Status DC Etomidate (Amidate Inj) 20 mg NOW ONCE IV PUSH Last administered on 11/21/17at 23:59; Start 11/21/17 at 23:45; Stop 11/21/17 at 23:50; Status DC Rocuronium [place] (Zemuron Inj) 50 mg NOW ONCE IV PUSH Last administered on at 23:58; Start 11/21/17 at 23:45; Stop 11/21/17 at 23:50; Status DC Etomidate (Amidate Inj) 20 mg NOW IV PUSH ; Start 11/21/17 at 23:30; Stop at 23:56; Status DC Rocuronium [place] (Zemuron Inj) 50 mg NOW IV ; Start 11/21/17 at 23:30; Stop 11/21/17 at 23:56; Status DC Mannitol (Mannitol Inj) 70 gm NOW IV ; Start 11/21/17 at 23:41; Stop 11/21/17 at 23:56; Status DC Propofol 100 ml @ 2.265 mls/ hr TITRATE PRN IV Sedation Last administered on at 00:22; Start 11/21/17 at 23:45; Stop 11/22/17 at 00:40; Status DC Acetaminophen 100 ml @ 400 mls/hr Q6H PRN IV INCREASED TEMPERATURE; Start 11/22 at 00:45 Propofol 100 ml @ 2.265 mls/ hr TITRATE PRN IV Sedation; Start 11/22/17 at 00: 45 Sodium Chloride 1,000 ml @ 999 mls/hr BOLUS ONCE IV Last administered on at 03:43; Start 11/22/17 at 03:00; Stop 11/22/17 at 04:00; Status DC Sodium Chloride 1,000 ml @ 999 mls/hr BOLUS ONCE IV ; Start 11/22/17 at 03:00; Stop 11/22/17 at 04:00; Status DC Sodium Chloride 500 ml @ 30 mls/hr Q16H IV Last administered on 11/22/17at 03:00 ; Start 11/22/17 at 03:00 Famotidine (Pepcid Inj) 20 mg Q12H IV PUSH ; Start 11/22/17 at 04:00 Thrombin (Thrombin Top Soln) 10,000 units STK-MED ONCE .ROUTE Last administered on 11/22/17at 05:13; Start 11/22/17 at 04:02; Stop 11/22/17 at 04:03; Status DC Gelatin (Gelfoam 100 Top) 1 foam STK-MED ONCE .ROUTE Last administered on at 05:13; Start 11/22/17 at 04:02; Stop 11/22/17 at 04:03; Status DC Lidocaine/ Epinephrine (Xylocaine-Epi 1%-1:100,000 Inj) 50 ml STK-MED ONCE .ROUTE ; Start 11/22/17 at 04:02; Stop 11/22/17 at 04:03; Status DC Gentamicin Sulfate (Gentamicin Inj) 240 mg STK-MED ONCE .ROUTE Last administered on 11/22/17at 05:13; Start 11/22/17 at 04:02; Stop 11/22/17 at 04:03; Status DC Bupivacaine HCl/ Epinephrine Bitart (Sensorcaine-Epinephrine Pf 0.5% Inj) 30 ml STK-MED ONCE .ROUTE ; Start 11/22/17 at 04:05; Stop 11/22/17 at 04:06; Status DC Vancomycin HCl (Vancomycin Inj) 1,000 mg STK-MED ONCE .ROUTE Last administered on 11/22/17at 05:03; Start 11/22/17 at 04:47; Stop 11/22/17 at 04:48; Status DC Levetriacetam (Keppra Inj) 1,000 mg STK-MED ONCE IV Last administered on at 05:39; Start 11/22/17 at 05:29; Stop 11/22/17 at 05:30; Status DC Thrombin (Thrombin Top Soln) 5,000 units STK-MED ONCE .ROUTE Last administered on 11/22/17at 05:36; Start 11/22/17 at 05:36; Stop 11/22/17 at 05:37; Status DC Norepinephrine Bitartrate (Levophed Inj) 4 mg STK-MED ONCE .ROUTE ; Start at 07:05; Stop 11/22/17 at 07:06; Status DC Fentanyl Citrate (fentaNYL INJ) 200 mcg STK-MED ONCE .ROUTE ; Start 11/22/17 at 07:20; Stop 11/22/17 at 07:21; Status DC Family History Coronary artery disease in both parents Social History Smokes a pack of cigarettes a day, does not drink alcohol but is a former drinker. She is and she has a daughter who is here with her. Physical Exam Vital Signs Vital Signs Date Time Temp Pulse Resp B/P (MAP) Pulse Ox O2 Delivery O2 Flow Rate FiO2 11/22/17 00:00 102.0 91 14 124/90 (101) 100 11/21/17 23:57 100 100 11/21/17 23:00 106 11/21/17 22:30 99.6 99 28 133/90 (104) 98 11/21/17 20:30 109 11/21/17 20:20 83 11/21/17 20:00 99.0 105 18 149/103 (118) 97 11/21/17 16:00 95.9 88 16 131/80 (97) 99 11/21/17 12:00 97.8 128 16 145/99 (114) 97 11/21/17 08:00 98.0 103 16 132/95 (107) 96 Physical Exam GENERAL: This is a well-nourished, well-developed patient elderly female, intubated on ventilator support in no apparent distress. SKIN: No rashes, ecchymoses or lesions. Cool and dry. HEAD: Atraumatic. Normocephalic. No temporal or scalp tenderness. EYES: Pupils equal round and reactive. Extraocular motions intact. No scleral icterus. No injection or drainage. ENT: Endotracheal tube in place. NECK: Trachea midline. No JVD or lymphadenopathy. Supple, nontender, no meningeal signs. CARDIOVASCULAR: Regular rate and rhythm without murmurs, gallops, or rubs. RESPIRATORY: Clear to auscultation. Breath sounds equal bilaterally. No wheezes , rales, or rhonchi. GASTROINTESTINAL: Abdomen soft, non-tender, nondistended. No hepato-splenomegaly , or palpable masses. No guarding. MUSCULOSKELETAL: Extremities without clubbing, cyanosis, or edema. No joint tenderness, effusion, or edema noted. No calf tenderness. Negative Homans sign bilaterally. NEUROLOGICAL: Intubated and once sedation held she does not open her eyes with left gaze preference. Pupils are 4 mm and reactive under 2 mm bilaterally. Does not follow commands although has spontaneous movement on the left side. Right-sided she would draws at times times extends the lower extremity and no response noted in the right upper extremity. Nursing staff relates that she had severe expressive aphasia with incomprehensible speech prior to intubation. Laboratory Laboratory Tests Test 11/21/17 05:40 11/21/17 16:59 11/21/17 17:10 11/21/17 22:53 White Blood Count 21.7 Red Blood Count 5.18 Hemoglobin 14.7 Hematocrit 42.9 Mean Corpuscular Volume 83.0 Mean Corpuscular Hemoglobin 28.4 Mean Corpuscular Hemoglobin Concent 34.3 Red Cell Distribution Width 14.7 Platelet Count 254 Mean Platelet Volume 8.2 Blood Urea Nitrogen 17 20 Creatinine 1.04 1.08 Random Glucose 130 139 Total Protein 7.5 7.5 Albumin 3.8 3.8 Calcium Level 10.1 10.8 Alkaline Phosphatase 132 138 Aspartate Amino Transf (AST/SGOT) 65 69 Alanine Aminotransferase (ALT/SGPT) 30 34 Total Bilirubin 0.8 0.9 Sodium Level 143 146 Potassium Level 3.2 3.3 Chloride Level 111 115 Carbon Dioxide Level 21.8 21.6 Anion Gap 10 9 Estimat Glomerular Filtration Rate 54 51 Lipase 181 123 Lactic Acid Level 2.1 Ammonia 16 Prothrombin Time 12.1 Prothromb Time International Ratio 1.2 Activated Partial Thromboplast Time 22.6 Test 11/22/17 01:26 Blood Gas Puncture Site RT RADIAL Blood Gas Patient Temperature 98.6 Blood Gas HCO3 17 Blood Gas Base Excess -6.9 Blood Gas Oxygen Saturation 98 Arterial Blood pH 7.41 Arterial Blood Partial Pressure CO2 27 Arterial Blood Partial Pressure O2 546 Arterial Blood Oxygen Content 21.4 Arterial Blood Carboxyhemoglobin 0.7 Arterial Blood Methemoglobin 1.2 Blood Gas Hemoglobin 14.6 Oxygen Delivery Device VENTILATOR Blood Gas Ventilator Setting VOLUME/AC Blood Gas Inspired Oxygen 100 Date/Time Source Procedure Growth Status 11/19/17 04:55 Blood Peripheral Aerobic Blood Culture - Preliminary Staph Sp Coagulase Negative Resulted 11/19/17 04:55 Blood Peripheral Anaerobic Blood Culture - Preliminary NO GROWTH IN 2 DAYS Resulted 11/19/17 04:05 Urine Clean Catch Urine Culture - Final Escherichia Coli Complete Result Diagram: 11/21/17 0540 11/21/17 1659 Imaging Last Impressions Chest X-Ray 11/22/17 0000 Signed Impressions: Service Date/Time: Wednesday, November 22, 2017 03:01 - CONCLUSION: 1. Right IJ line distal tip is in the SVC. There is a new masslike fullness to the right paratracheal region. Given the recent central line placement this could represent a hematoma. Consider chest CT with IV contrast for further evaluation when patient condition permits. 2. Underinflation with atelectasis. No pneumothorax is appreciated. Jose Mccartney MD Head CT 11/21/17 0000 Signed Impressions: Service Date/Time: Tuesday, November 21, 2017 21:25 - CONCLUSION: 1. Large acute intraparenchymal hemorrhage involving the left mid to posterior parietal lobe. 2. Mass effect in midline shift to the right by 9 mm. 3. Subarachnoid hemorrhage and cerebral edema on the left side. Meir Donnelly MD Abdomen/Pelvis CT 11/21/17 0000 Signed Impressions: Service Date/Time: Tuesday, November 21, 2017 21:37 - CONCLUSION: 1. No evidence to indicate pancreatitis. 2. Multiple stones in the gallbladder. 3. Multiple bilateral renal calculi.. 4. No significant changes compared to the prior exam. Meir Donnelly MD GI Procedure 11/20/17 0000 Signed Impressions: Service Date/Time: Monday, November 20, 2017 16:40 - CONCLUSION: ERCP as above. Jose Echevarria MD Assessment and Plan Assessment and Plan Large left posterior temporal lobe prior low but occipital lobe hemorrhagic stroke with associated moderate mass effect and midline shift. The intracerebral hematoma measures approximately 80 ml. Chronic neck and back pain with intrathecal pump placement which was not refilled due to [facility] of [facility]. Likely is undergoing opiate withdrawal. Biliary obstruction with jaundice status post ERCP History of COPD Staph epidermidis bacteremia 2 with the urinary tract infection. Discussed the findings at length with the patient's daughter at the bedside along with the option of a left craniotomy for cerebral hemorrhage evacuation and ventriculostomy placement. She has suffered from a significant dominant hemisphere injury and despite any aggressive surgical intervention she will likely have severe aphasia and right hemiplegia. Is also risk of sepsis given the bacteremia and elevated white count along with other medical comorbidities. The risks and benefits were discussed along with the option of nonsurgical medical management. She relates to me that the patient would not want prolonged ventilator or life support but would like to proceed with surgical intervention subsequently see how she progresses. Informed consent obtained. Also discussed with labeling associate. Og Womack MD Nov 22, 2017 04:12
[2017-11-22] MEDS ORDERED: VANCOMYCIN HCL 1000 MG VIAL ONE (04:47)
[2017-11-22] MEDS ORDERED: levETIRAcetam 500 MG/5 ML VIAL IV ONE (05:29)
--- NOTE | 2017-11-22 06:35 | PD.OP ---
Operative Report Date of Surgery: Nov 22, 2017 Preoperative Diagnosis: Large left temporal parieto-occipital lobe hemorrhage Postoperative Diagnosis: Same Procedure: Left parietal craniotomy for intracerebral hematoma evacuation; Left frontal gt hole placement for ventriculostomy; microsurgical technique Anesthesia: Gen. endotracheal by Sahil lester Surgeon: Og Womack M.D. Ground Operations Supervisor(s): Julian Neal Operation and Findings: Following administration of general endotracheal anesthesia was invasive lines and Julian catheter in place along with sequential compression device. A gram of vancomycin was administered intravenously and she had previously received mannitol and hypertonic saline boluses. She was turned on the lateral position on a beanbag with an axillary roll left side up and the head secured in a 3 pin Domínguez headrest. The left frontal temporal parietal occipital region was then shaved and prepped with a Betadine solution and ChloraPrep. A gram of Keppra was also administered intravenously for seizure prophylaxis. After draping, a left parieto-occipital area curvilinear incision was made following infiltration of the scalp with 0.5% Marcaine with epinephrine solution extending down to the galea. Radha clips were used for the scalp was removed hemostasis and the flap retracted with hooks. With an automated chief dispatcher gt hole was made and with the craniotome the bone flap elevated. Bone holes placed in the craniotomy edges and 4-0 Nurolon dural tacking stitches placed circumferentially for hemostasis. The dura was opened in a cruciate form and cerebral hematoma approaching the cortical surface was identified along with brain swelling noted. Microscope magnification with microsurgical technique used for further dissection. A corticectomy was made overlying the hematoma and large cerebral hematoma in the prior low but also extending at the posterior temporal and occipital lobes was evident and evacuated. No underlying vascular malformation or neoplasm was noted. Bipolar cautery used for hemostasis along with Gelfoam and thrombin. After evacuation of the hematoma the brain was more relaxed and pulsatile. The dura was then approximated using 4 Nurolon interrupted sutures in the central dural tacking stitch placed. The bone flap was approximated using [place] mini plates. The galea proximal using 2-0 Vicryl interrupted stitches and finders skin closure was with justen. Subsequently, using landmarks of 11 cm behind the nasion and 3 cm to the left of the midline, a separate scalp incision was made after infiltrating with neuro 0.5% with epinephrine solution. With the automated chief dispatcher gt hole was made and the underlying dura cauterized and opened in a cruciate format. The bactiseal ventriculostomy catheter was then passed into the lateral ventricle at a depth of 7 cm clear CSF encountered with an opening pressure around 12 cm H20. The distal end of the ventriculostomy was then tunneled under the scalp with a trocar and secured to the exit site with a 3-0 nylon thigh and connected to a drainage bag. Scalp incision site was approximated with 3-0 Vicryl interrupted stitches and justen A sterile pressure dressing was applied. The Domínguez headrest was then removed and she was turned in a supine position and taken back to the surgical intensive care unit. There were no complications and all sponge and needle counts were correct with blood loss approximately 100 cc. Og Womack MD Nov 22, 2017 06:35
[2017-11-22] MEDS ORDERED: NOREPINEPHRINE 4 MG/4 ML AMP ONE (07:05)
--- NOTE | 2017-11-22 07:28 | HHI.CCPN ---
Subjective Remarks/Hospital Course 62-year-old female with a past medical history significant for chronic pain with morphine pump, fibromyalgia, celiac disease and anxiety presented initially to the hospital for evaluation of leg spasms. The patient reports that she woke up approximately 1 AM and "could not control her legs." Her daughter gave her a 30 mg tablet of morphine to help with her symptoms yet they persisted. She was admitted to [facility] floor for further evaluation where she became suddenly lethargic and weak on the right side. The CT of the head was done immediately and shows large posterior parietal lobe hemorrhagic stroke with brain edema. She was immediately intubated for an airway protection and started on hyperosmolar therapy. SUBJ 11/22: Patient underwent Left parietal craniotomy for intracerebral hematoma evacuation; Left frontal gt hole placement for ventriculostomy by Dr. Womack. Seen in the ICU immediately postop. Profoundly hypotensive systolic blood pressure initially in the 50s. Stat bolus of LR was ordered by anesthesia. Levophed increased to 12 mcg/min with improvement in systolic blood pressure to 110s. We will place arterial line. Currently patient is under the influence of anesthesia, not moving any extremities Objective Vital Signs Date Time Temp Pulse Resp B/P (MAP) Pulse Ox O2 Delivery O2 Flow Rate FiO2 11/22/17 04:40 100 11/22/17 04:20 100 11/22/17 04:00 101.1 80 14 120/82 (95) Intake and Output 11/22/17 11/22/17 11/23/17 08:00 16:00 00:00 Intake Total 1300 ml Output Total 250 ml Balance 1050 ml Result Diagram: 11/21/17 0540 11/21/17 1659 Other Results Laboratory Tests Test 11/22/17 01:26 11/22/17 07:14 Blood Gas Puncture Site RT RADIAL RT RADIAL Blood Gas Patient Temperature 98.6 98.6 Blood Gas HCO3 17 mmol/L (22-26) 18 mmol/L (22-26) Blood Gas Base Excess -6.9 mmol/L (-2-2) -6.0 mmol/L (-2-2) Blood Gas Oxygen Saturation 98 % (90-100) 98 % (90-100) Arterial Blood pH 7.41 (7.380-7.420) 7.37 (7.380-7.420) Arterial Blood Partial Pressure CO2 27 mmHg (38-42) 33 mmHg (38-42) Arterial Blood Partial Pressure O2 546 mmHg (61-120) 362 mmHg (61-120) Arterial Blood Oxygen Content 21.4 Vol % (12.0-20.0) 16.8 Vol % (12.0-20.0) Arterial Blood Carboxyhemoglobin 0.7 % (0-4) 0.8 % (0-4) Arterial Blood Methemoglobin 1.2 % (0-2) 1.3 % (0-2) Blood Gas Hemoglobin 14.6 G/DL (12.0-16.0) 11.6 G/DL (12.0-16.0) Oxygen Delivery Device VENTILATOR VENTILATOR Blood Gas Ventilator Setting VOLUME/AC A/C14/550/PEEP5 Blood Gas Inspired Oxygen 100 % 100 % Objective Remarks GENERAL: Well-nourished, well-developed patient. Intubated, currently under residual anesthesia SKIN: Warm and dry. HEAD: Circumferential craniotomy dressing in place and EVD in place EYES: No scleral icterus. No injection or drainage. Pupils 4 mm sluggish ENT: Orotracheally intubated NECK: Supple, trachea midline. No JVD or lymphadenopathy. CARDIOVASCULAR: Regular rate and rhythm without murmurs, gallops, or rubs. Hypotensive on 12 mcg/min of Levophed RESPIRATORY: Breath sounds equal bilaterally. No accessory muscle use. GASTROINTESTINAL: Abdomen soft, non-tender, nondistended. Subcutaneous morphine pump in the right upper quadrant MUSCULOSKELETAL: No cyanosis, or edema. NEURO EXAM: Patient is intubated under residual anesthesia which limits neuro exam. Pupils are 4 mm sluggish. No withdrawal in any extremities (Prior to OR , flaccid on right side spontaneously following commands on the left. Pupils are 2 mm bilaterally and brisk). Will repeat neuro exam after anesthesia wears off Urinary Catheter: Yes Assessment to: Continue Vascular Central Line Catheter: Yes Assessment to: Continue Side: Right Location: Internal, Jugular A/P Assessment and Plan A/P NEURO: Large acute intraparenchymal hemorrhage involving the left parietal lobe Midline shift to the right by 9 mm Subarachnoid hemorrhage and cerebral edema on the left side Chronic pain on Morphine pump - Left parietal craniotomy for intracerebral hematoma evacuation, Left frontal gt hole placement for ventriculostomy by Dr. Womack. - Target CPP 60-70 - Mannitol 1 g/kg 1 - 3% sodium chloride infusion, target Na 150-155 - Use 23% saline/ mannitol for elevated ICP - Received 1 g of Keppra, continue 500 mg every 12 -Propofol and fentanyl for sedation pain control and ventilator synchrony RESP: Acute respiratory failure - Intubated for an airway protection - No weaning until neurologically improved - DuoNeb's when necessary - ABG and CXR as needed - CO2 goal physiological range CVS: Hypotension/shock Mild lactic acidosis History of hypertension - Use Levophed and John-Synephrine to target map above 65 CPP 60-70 - NS bolus and 7 5ml per hour, 3% saline at 30 ml per hour - Hold metoprolol and lisinopril GI: - Keep n.p.o., IV famotidine - Bowel regimen with Colace and senna : Acute kidney insufficiency - Monitor renal function closely, maintain Julian -Continue aggressive fluid resuscitation as above ID: UTI with Klebsiella Coag negative staph bacteremia - Continue Rocephin for UTI - Repeat blood cultures, vancomycin 1 g 1 HEME: Leukocytosis - Leukocytosis most likely stress related - Monitor CBC coags fibrinogen, transfuse as needed DVT GI prophylaxis - Teds SCDs - No pharmacological DVT prophylaxis due to acute ICH - IV Pepcid Critical Care: The total critical care time was 45 minutes. Time to perform other separately billable procedures was not included in the critical care time. Shalonda Garcia MD Nov 22, 2017 07:28
[2017-11-22] MEDS ORDERED: TERBUTALINE INJ 1 MG/ML AMP SQ PRN ×2 (07:30→17:45)
[2017-11-22] MEDS: VANCOMYCIN 1 GM/200 ML PREMIX IV ONE ×2 (07:30→09:17)
[2017-11-22] MEDS ORDERED: PHENYLEPHRINE INJ 80 MG in DEXTROSE 5% IN WATE 500 ML INJ 492 ML IV PRN ×2 (07:30)
[2017-11-22] MEDS ORDERED: VANCOMYCIN INJ 1,000 MG in SODIUM CHLOR 0.9% 250 ML INJ 250 ML IV ONE (07:30)
[2017-11-22 07:52] LABS: INTERNATIONAL NORMALIZED RATIO 1.2 RATIO
[2017-11-22 08:04] LABS: HEMATOCRIT 36.1 % (35.0-46.0); MEAN CORPUSCULAR HEMOGLOBIN 28.2 PG (27.0-34.0); MEAN CORPUSCULAR HGB CONC 33.2 % (32.0-36.0); MEAN PLATELET VOLUME 8.2 FL (7.0-11.0); PLATELET COUNT 185 TH/MM3 (150-450); RED BLOOD COUNT 4.25 MIL/MM3 (4.00-5.30); RED CELL DISTRIBUTION WIDTH 15.1 % (11.6-17.2); WHITE BLOOD COUNT 20.3 TH/MM3 (4.0-11.0)
[2017-11-22 08:13] LABS: ALBUMIN 2.8 GM/DL (3.4-5.0); ALKALINE PHOSPHATASE 110 U/L (45-117); ALT (GPT) 26 U/L (10-53); AST (GOT) 48 U/L (15-37); BICARBONATE 21.6 MEQ/L (21.0-32.0); BLOOD UREA NITROGEN 22 MG/DL (7-18); CALCIUM 8.9 MG/DL (8.5-10.1); CHLORIDE 121 MEQ/L (98-107); CREATININE 1.05 MG/DL (0.50-1.00); GLOMERULAR FILTRATION RATE 53 ML/MIN (>89); GLUCOSE,RANDOM 142 MG/DL (74-106); MAGNESIUM 2.1 MG/DL (1.5-2.5); SODIUM (NA) 152 MEQ/L (136-145); TOTAL BILIRUBIN ADULT 0.6 MG/DL (0.2-1.0); TOTAL PROTEIN 5.5 GM/DL (6.4-8.2)
--- NOTE | 2017-11-22 08:22 | RADRPT ---
EXAM DATE/TIME: 11/22/2017 07:33 [facility] COMPARISON: CHEST SINGLE AP, November 22, 2017, 3:01. INDICATIONS : Respiratory disease. Post left craniotomy. MEDICAL HISTORY : Cardiovascular disease. SURGICAL HISTORY : None. ENCOUNTER: Subsequent ACUITY: 4 - 6 days PAIN SCORE: Non-responsive. LOCATION: Bilateral chest FINDINGS: An endotracheal tube has its tip 3 cm above the lazaro in good position. A right internal jugular becca tral line has its tip at junction superior vena cava and right atrium. No pneumothorax is noted. Left basilar patchiness is noted consistent with atelectasis and/or pneumonia. Clinical correlation is re commended. The pulmonary vascular pattern is normal. Degenerative changes and scoliosis of the thorac ic spine are noted. CONCLUSION: Left basilar patchiness consistent with atelectasis and/or pneumonia. Clinical correlation is recomme nded. Lance Wall MD on November 22, 2017 at 8:18 Board Certified Radiologist. This report was verified electronically.
[2017-11-22] MEDS: TRIAMCINOLONE ACETONIDE 0.1% CREAM 15 GM TOPICAL SCH ×2 (09:00→21:00)
[2017-11-22] MEDS: SODIUM CHLORIDE 0.9% FLUSH 10 ML FLUSH IV FLUSH SCH ×2 (09:00→21:00)
[2017-11-22] MEDS: SENNOSIDES SYRUP 8.8 MG/5 ML CUP PO SCH (09:00)
[2017-11-22] MEDS ORDERED: LISINOPRIL 20 MG TAB PO SCH (09:00)
[2017-11-22] MEDS: DOCUSATE SODIUM 100 MG/10 ML UDC PO SCH ×2 (09:00→21:00)
--- NOTE | 2017-11-22 09:24 | HHI.NSPN ---
History Chief Complaint: s/p left crani for ICH evacuation. Interval History 2-year-old female admitted on 11/19/2017 after she presented to the emergency room with symptoms that seem to be related to morphine withdrawal with the shaking in her lower extremities along with the anxiety abdominal pain and nausea. She has an intrathecal pain pump placed to which the daughter states enters into the cervical and lumbar spine last year with a last pump refill with morphine 3 months ago. The pain specialist informed her that she could not refill the pump anymore since the ID was not authorizing this. She has a past medical history significant for chronic neck and back pain with history of cervical and lumbar spine surgeries, COPD, fibromyalgia, celiac disease and anxiety. She was admitted to [facility] floor for further evaluation where she became suddenly lethargic, aphasic and weak on the right side yesterday after the endoscopy for biliary obstruction. The CT of the head was done and shows large posterior parietal lobe hemorrhagic stroke with brain edema. She was transferred to the intensive care unit and intubated for an airway protection and started on hyperosmolar therapy. Neurosurgery has been consulted this morning for the cerebral hemorrhage. 11/22/17: Pt underwent a Left parietal craniotomy for intracerebral hematoma evacuation; Left frontal gt hole placement for ventriculostomy early this morning. Post op assessment done by me reveals she is sedated on Diprivan. Pupils are 3mm bilaterally, reactive bilaterally. Ventriculostomy drain in place at 10cm H20 without drainage or waveform and ICPs read 12. There is air in the line. System Review Comments Not able to obtain given clinical condition. Exam Results Vital Signs Date Time Temp Pulse Resp B/P (MAP) Pulse Ox O2 Delivery O2 Flow Rate FiO2 11/22/17 08:06 100 50 11/22/17 04:00 101.1 80 14 120/82 (95) Intake and Output 11/22/17 11/22/17 11/23/17 08:00 16:00 00:00 Intake Total 1300 ml Output Total 250 ml Balance 1050 ml Physical Examination General: Pt sedated and intubated in NAD. Eyes: Pupils 3mm bilaterally reactive bilaterally. Sclera anicteric. Resp: Intubated. Volume Control rate 14. FiO2 50%. CTA bilaterally. Heart: NSR no murmurs Abd: Soft positive bs Skin: No cyanosis or erythema. Head bandaged dry. Muscle: Not following for muscle testing. Localizes with LUE to pain. Right hemiparesis. Neuro: Pt sedated on Diprivan. Pupils 3mm bilaterally reactive bilaterally. Not following commands. Ventriculostomy drain in place at 10cm H20 without waveform. ICP read 12. No CSF drainage. Lab, Micro, Other Results Last Impressions Chest X-Ray 11/22/17 0000 Signed Impressions: Service Date/Time: Wednesday, November 22, 2017 07:33 - CONCLUSION: Left basilar patchiness consistent with atelectasis and/or pneumonia. Clinical correlation is recommended. Lance Wall MD Head CT 11/21/17 0000 Signed Impressions: Service Date/Time: Tuesday, November 21, 2017 21:25 - CONCLUSION: 1. Large acute intraparenchymal hemorrhage involving the left mid to posterior parietal lobe. 2. Mass effect in midline shift to the right by 9 mm. 3. Subarachnoid hemorrhage and cerebral edema on the left side. Meir Donnelly MD Abdomen/Pelvis CT 11/21/17 0000 Signed Impressions: Service Date/Time: Tuesday, November 21, 2017 21:37 - CONCLUSION: 1. No evidence to indicate pancreatitis. 2. Multiple stones in the gallbladder. 3. Multiple bilateral renal calculi.. 4. No significant changes compared to the prior exam. Meir Donnelly MD GI Procedure 11/20/17 0000 Signed Impressions: Service Date/Time: Monday, November 20, 2017 16:40 - CONCLUSION: ERCP as above. Jose Echevarria MD Laboratory Tests Test 11/21/17 16:59 11/21/17 17:10 11/21/17 22:53 11/22/17 01:26 Blood Urea Nitrogen 20 MG/DL Creatinine 1.08 MG/DL Random Glucose 139 MG/DL Total Protein 7.5 GM/DL Albumin 3.8 GM/DL Calcium Level 10.8 MG/DL Alkaline Phosphatase 138 U/L Aspartate Amino Transf (AST/SGOT) 69 U/L Alanine Aminotransferase (ALT/SGPT) 34 U/L Total Bilirubin 0.9 MG/DL Sodium Level 146 MEQ/L Potassium Level 3.3 MEQ/L Chloride Level 115 MEQ/L Carbon Dioxide Level 21.6 MEQ/L Anion Gap 9 MEQ/L Estimat Glomerular Filtration Rate 51 ML/MIN Lactic Acid Level 2.1 mmol/L Lipase 123 U/L Ammonia 16 MCMOL/L Prothrombin Time 12.1 SEC Prothromb Time International Ratio 1.2 RATIO Activated Partial Thromboplast Time 22.6 SEC Blood Gas Puncture Site RT RADIAL Blood Gas Patient Temperature 98.6 Blood Gas HCO3 17 mmol/L Blood Gas Base Excess -6.9 mmol/L Blood Gas Oxygen Saturation 98 % Arterial Blood pH 7.41 Arterial Blood Partial Pressure CO2 27 mmHg Arterial Blood Partial Pressure O2 546 mmHg Arterial Blood Oxygen Content 21.4 Vol % Arterial Blood Carboxyhemoglobin 0.7 % Arterial Blood Methemoglobin 1.2 % Blood Gas Hemoglobin 14.6 G/DL Oxygen Delivery Device VENTILATOR Blood Gas Ventilator Setting VOLUME/AC Blood Gas Inspired Oxygen 100 % Test 11/22/17 07:14 11/22/17 07:25 11/22/17 07:51 Blood Gas Puncture Site RT RADIAL Blood Gas Patient Temperature 98.6 Blood Gas HCO3 18 mmol/L Blood Gas Base Excess -6.0 mmol/L Blood Gas Oxygen Saturation 98 % Arterial Blood pH 7.37 Arterial Blood Partial Pressure CO2 33 mmHg Arterial Blood Partial Pressure O2 362 mmHg Arterial Blood Oxygen Content 16.8 Vol % Arterial Blood Carboxyhemoglobin 0.8 % Arterial Blood Methemoglobin 1.3 % Blood Gas Hemoglobin 11.6 G/DL Oxygen Delivery Device VENTILATOR Blood Gas Ventilator Setting A/C14/550/PEEP5 Blood Gas Inspired Oxygen 100 % Prothrombin Time 12.0 SEC Prothromb Time International Ratio 1.2 RATIO Blood Urea Nitrogen 22 MG/DL Creatinine 1.05 MG/DL Random Glucose 142 MG/DL Total Protein 5.5 GM/DL Albumin 2.8 GM/DL Calcium Level 8.9 MG/DL Magnesium Level 2.1 MG/DL Alkaline Phosphatase 110 U/L Aspartate Amino Transf (AST/SGOT) 48 U/L Alanine Aminotransferase (ALT/SGPT) 26 U/L Total Bilirubin 0.6 MG/DL Sodium Level 152 MEQ/L Potassium Level 3.3 MEQ/L Chloride Level 121 MEQ/L Carbon Dioxide Level 21.6 MEQ/L Anion Gap 9 MEQ/L Estimat Glomerular Filtration Rate 53 ML/MIN Lactic Acid Level 1.6 mmol/L White Blood Count 20.3 TH/MM3 Red Blood Count 4.25 MIL/MM3 Hemoglobin 12.0 GM/DL Hematocrit 36.1 % Mean Corpuscular Volume 85.0 FL Mean Corpuscular Hemoglobin 28.2 PG Mean Corpuscular Hemoglobin Concent 33.2 % Red Cell Distribution Width 15.1 % Platelet Count 185 TH/MM3 Mean Platelet Volume 8.2 FL Medical Decision Making Impression and Plan A: Large left posterior temporal lobe prior low but occipital lobe hemorrhagic stroke with associated moderate mass effect and midline shift. The intracerebral hematoma measures approximately 80 ml. Chronic neck and back pain with intrathecal pump placement which was not refilled due to [facility] of [facility] reportedly. Likely is undergoing opiate withdrawal. Biliary obstruction with jaundice status post ERCP History of COPD Staph epidermidis bacteremia 2 with the urinary tract infection. P: Discussed with Dr. Womack and we have decided to try to flush the air from ventric line. The CSF port was cleaned with Betadine swab x 3. The ventric was clamped to the pt and the line to the CSF chamber was flushed with 10cc of NS removing the air within the line. The drain was then opened and lowered and appeared to have some drainage. There was only a few small air pockets in the ventric to the pt and these were not flushed since she appeared to have some drainage. There appeared to possibly at times be a waveform, although very dampened. ICP was 2 at end of flushing and Neuro exam was unchanged. Continue with critical care Continue to monitor Will reassess ventric to see if flushing helped waveform or ICP could be low from drainage. Zack Ramirez Nov 22, 2017 9:24 am
--- NOTE | 2017-11-22 09:33 | PD.PROCEDR ---
Procedure Note Procedure REASON FOR PROCEDURE Invasive hemodynamic monitoring, continuous CPP monitoring PROCEDURE PERFORMED Right radial arterial line placement DESCRIPTION OF THE PROCEDURE The patient was placed in supine position. The area was exposed and cleansed with ChloraPrep, times two. Large sterile drape was used to cover the right radial artery site, and under sterile conditions including cap, face mask, and sterile gloves. On single attempt, the introducer needle was inserted and arterial flash was obtained. The guide wire was then advanced without any restriction and the needle was removed. Using Seldinger technique the 20 G 16 cm catheter was advanced over the guide wire to a depth of 15 centimeters. The guide wire was removed. Good arterial wave form obtained. Antibiotic disc was placed around arterial line at puncture site. The central line was secured to the skin with one interrupted 2.0 silk sutures. The area was bandaged with sterile see-through central line bandage. COMPLICATIONS: No apparent complications ESTIMATED BLOOD LOSS: Less than 2 cc. Shalonda Garcia MD Nov 22, 2017 09:33
[2017-11-22] MEDS: PROPOFOL 1000 MG/100 ML IV PRN ×3 (11:00→18:09)
[2017-11-22] MEDS: cefTRIAXone INJ 1,000 MG in SODIUM CHLORIDE 0.9% INJ 100 ML IV SCH (11:23)
[2017-11-22] MEDS ORDERED: ePHEDrine/NS 25 MG/5 ML SYRINGE IV ONE (12:00)
[2017-11-22] MEDS ORDERED: SODIUM CHLOR 0.9% 250 ML INJ 750 ML IV ONE (12:00)
[2017-11-22] MEDS ORDERED: LIDOCAINE HCL 1% PF 5 ML SYRINGE OTHER ONE (12:00)
[2017-11-22] MEDS ORDERED: PROPOFOL 200 MG/20 ML AMP IV ONE (12:00)
[2017-11-22] MEDS ORDERED: ROCURONIUM INJ 50 MG/5 ML SYRINGE IV PUSH ONE (12:00)
[2017-11-22] MEDS ORDERED: PHENYLEPH/NS 1000 MCG/10 ML SYR IV ONE (12:00)
[2017-11-22] MEDS ORDERED: LACTATED RINGER'S 1000 ML INJ 1,000 ML IV ONE (12:00)
[2017-11-22] MEDS ORDERED: PHENYLEPHRINE HCL 10 MG/ML VIAL IV ONE (12:00)
--- NOTE | 2017-11-22 15:01 | HHI.GIFU ---
Subjective Remarks Pt now intubated in ISC.. found to have brain bleed last night, s/p crani. (Columba Malhotra [employer]) Objective Vitals I&O Vital Signs Date Time Temp Pulse Resp B/P (MAP) Pulse Ox O2 Delivery O2 Flow Rate FiO2 11/22/17 14:08 98 40 11/22/17 10:31 100 50 11/22/17 08:06 100 50 11/22/17 04:40 100 11/22/17 04:20 98 100 11/22/17 04:00 101.1 80 14 120/82 (95) 100 11/22/17 00:00 102.0 91 14 124/90 (101) 100 11/21/17 23:57 100 100 11/21/17 23:00 106 11/21/17 22:30 99.6 99 28 133/90 (104) 98 11/21/17 20:30 109 11/21/17 20:20 83 11/21/17 20:00 99.0 105 18 149/103 (118) 97 11/21/17 16:00 95.9 88 16 131/80 (97) 99 I/O 11/21/17 11/21/17 11/21/17 11/22/17 11/22/17 11/22/17 07:00 15:00 23:00 07:00 15:00 23:00 Intake Total 1300 ml Output Total 250 ml Balance 1050 ml Other 1300 ml Output Urine Total 150 ml Estimated Blood Loss 100 ml # Voids 2 1 # Bowel Movements 0 0 Laboratory Laboratory Tests Test 11/21/17 16:59 11/21/17 17:10 11/21/17 22:53 11/22/17 01:26 Blood Urea Nitrogen 20 Creatinine 1.08 Random Glucose 139 Total Protein 7.5 Albumin 3.8 Calcium Level 10.8 Alkaline Phosphatase 138 Aspartate Amino Transf (AST/SGOT) 69 Alanine Aminotransferase (ALT/SGPT) 34 Total Bilirubin 0.9 Sodium Level 146 Potassium Level 3.3 Chloride Level 115 Carbon Dioxide Level 21.6 Anion Gap 9 Estimat Glomerular Filtration Rate 51 Lactic Acid Level 2.1 Lipase 123 Ammonia 16 Prothrombin Time 12.1 Prothromb Time International Ratio 1.2 Activated Partial Thromboplast Time 22.6 Blood Gas Puncture Site RT RADIAL Blood Gas Patient Temperature 98.6 Blood Gas HCO3 17 Blood Gas Base Excess -6.9 Blood Gas Oxygen Saturation 98 Arterial Blood pH 7.41 Arterial Blood Partial Pressure CO2 27 Arterial Blood Partial Pressure O2 546 Arterial Blood Oxygen Content 21.4 Arterial Blood Carboxyhemoglobin 0.7 Arterial Blood Methemoglobin 1.2 Blood Gas Hemoglobin 14.6 Oxygen Delivery Device VENTILATOR Blood Gas Ventilator Setting VOLUME/AC Blood Gas Inspired Oxygen 100 Test 11/22/17 07:14 11/22/17 07:25 11/22/17 07:51 11/22/17 11:43 Blood Gas Puncture Site RT RADIAL Blood Gas Patient Temperature 98.6 Blood Gas HCO3 18 Blood Gas Base Excess -6.0 Blood Gas Oxygen Saturation 98 Arterial Blood pH 7.37 Arterial Blood Partial Pressure CO2 33 Arterial Blood Partial Pressure O2 362 Arterial Blood Oxygen Content 16.8 Arterial Blood Carboxyhemoglobin 0.8 Arterial Blood Methemoglobin 1.3 Blood Gas Hemoglobin 11.6 Oxygen Delivery Device VENTILATOR Blood Gas Ventilator Setting A/C14/550/PEEP5 Blood Gas Inspired Oxygen 100 Prothrombin Time 12.0 Prothromb Time International Ratio 1.2 Fibrinogen 341 Blood Urea Nitrogen 22 Creatinine 1.05 Random Glucose 142 Total Protein 5.5 Albumin 2.8 Calcium Level 8.9 Magnesium Level 2.1 Alkaline Phosphatase 110 Aspartate Amino Transf (AST/SGOT) 48 Alanine Aminotransferase (ALT/SGPT) 26 Total Bilirubin 0.6 Sodium Level 152 154 Potassium Level 3.3 Chloride Level 121 Carbon Dioxide Level 21.6 Anion Gap 9 Estimat Glomerular Filtration Rate 53 Lactic Acid Level 1.6 White Blood Count 20.3 Red Blood Count 4.25 Hemoglobin 12.0 Hematocrit 36.1 Mean Corpuscular Volume 85.0 Mean Corpuscular Hemoglobin 28.2 Mean Corpuscular Hemoglobin Concent 33.2 Red Cell Distribution Width 15.1 Platelet Count 185 Mean Platelet Volume 8.2 Date/Time Source Procedure Growth Status 11/22/17 10:25 Blood Peripheral Aerobic Blood Culture Pending Received 11/22/17 10:25 Blood Peripheral Anaerobic Blood Culture Pending Received 11/19/17 04:05 Urine Clean Catch Urine Culture - Final Escherichia Coli Complete Imaging Last Impressions Chest X-Ray 11/22/17 0000 Signed Impressions: Service Date/Time: Wednesday, November 22, 2017 07:33 - CONCLUSION: Left basilar patchiness consistent with atelectasis and/or pneumonia. Clinical correlation is recommended. Lance Wall MD Head CT 11/21/17 0000 Signed Impressions: Service Date/Time: Tuesday, November 21, 2017 21:25 - CONCLUSION: 1. Large acute intraparenchymal hemorrhage involving the left mid to posterior parietal lobe. 2. Mass effect in midline shift to the right by 9 mm. 3. Subarachnoid hemorrhage and cerebral edema on the left side. Meir Donnelly MD Abdomen/Pelvis CT 11/21/17 0000 Signed Impressions: Service Date/Time: Tuesday, November 21, 2017 21:37 - CONCLUSION: 1. No evidence to indicate pancreatitis. 2. Multiple stones in the gallbladder. 3. Multiple bilateral renal calculi.. 4. No significant changes compared to the prior exam. Meir Donnelly MD GI Procedure 11/20/17 Signed Impressions: Service Date/Time: Monday, November 20, 2017 16:40 - CONCLUSION: ERCP as above. Jose Echevarria MD Physical Exam HEENT: normocephalic; atraumatic; intubated dressing head. CHEST: coarse CARDIAC: RRR ABDOMEN: Soft, mildly distended, nontender; no hepatosplenomegaly; bowel sounds soft EXTREMITIES: No clubbing, cyanosis, or edema. restraints SKIN: Normal; no rash; [employer]: sedated on vent (Columba Malhotra [employer]) Assessment and Plan Plan - Acute pancreatitis- likely biliary etiology. CT of the abdomen/pelvis done and that was significant for cholelithiasis and mild prominence of the biliary tree with questionable filling defect in the distal common bile duct, suspicious for stone versus mass. Labs with normal LfTs, high Lipase 2544. Patient reports subjective fever and chills. CBC unremarkable. Patient denies abd pain, change in bowels, change in urine, hematemesis or hematochezia. Denies previous hx of pancreatitis or liver disease, denies alcohol or illicit drug use. Reports nausea and one episode of vomiting the day before yesterday. - Hx of celiac dz- last EGD 5 yrs ago per pt, has been following gluten free diet, she consumes gluten every now and then but minimal - UTI- urine cx pending - involuntary leg spasms that wasn't relived with morphine. per attending - past medical history significant for chronic pain with morphine pump, fibromyalgia, per attending 11/21/17 s/p ERCP with sphincterotomy and balloon extraction, finding choledocholithiasis. AST worsened today, mild increase 0.8. tumor markers WNL. lipase WNL. WBC significant increase today, appears diaphoretic. tachycardic. 11/22/17 s/p crani for hemorrhage. in ISC now intubated. LFTs improving. CT abd unremarkable. Plan: - monitor labs - continue supportive care - GI will sign off. please reconsult if needed - Patient seen and examined by Dr. Colon and myself and this note is written on her behalf. (Columba Malhotra) Physician Comments agree with above (Sangita Colon MD) Columba Malhotra Nov 22, 2017 15:01 Sangita Colon MD Nov 22, 2017 20:41
[2017-11-22] MEDS: NOREPINEPHRINE INJ 4 MG in SODIUM CHLOR 0.9% 250 ML INJ 246 ML IV PRN (18:08)
[2017-11-22] MEDS: levETIRAcetam INJ 500 MG in SODIUM CHLORIDE 0.9% INJ 100 ML IV SCH (18:09)
[2017-11-22] MEDS ORDERED: PHENYLEPHRINE INJ 80 MG in SODIUM CHLORID 0.9% 500 ML INJ 492 ML IV PRN (20:45)
[2017-11-23] VITALS (19 sets, daily range): BP systolic 97–115; BP diastolic 54–67; PULSE 78–105; RESP 14–16; TEMP 100.2–101.1; O2SAT 100
[2017-11-23] MEDS: PROPOFOL 1000 MG/100 ML IV PRN ×4 (01:24→22:17)
[2017-11-23] MEDS: NOREPINEPHRINE INJ 4 MG in SODIUM CHLOR 0.9% 250 ML INJ 246 ML IV PRN ×3 (02:00→22:11)
[2017-11-23 04:15] LABS: AUTOMATED NEUTROPHIL # 17.7 TH/MM3 (1.8-7.7); BASOPHIL # 0.1 TH/MM3 (0-0.2); BASOPHIL % 0.3 % (0.0-2.0); HEMATOCRIT 31.5 % (35.0-46.0); HEMOGLOBIN 10.7 GM/DL (11.6-15.3); LYMPH % 9.9 % (9.0-44.0); LYMPHOCYTE # 2.2 TH/MM3 (1.0-4.8); MEAN CELL VOLUME 84.9 FL (80.0-100.0); MEAN CORPUSCULAR HEMOGLOBIN 28.9 PG (27.0-34.0); MEAN PLATELET VOLUME 8.3 FL (7.0-11.0); MONO % 9.4 % (0.0-8.0); MONOCYTE # 2.1 TH/MM3 (0-0.9); NEUT % 80.4 % (16.0-70.0); PLATELET COUNT 130 TH/MM3 (150-450); RED BLOOD COUNT 3.71 MIL/MM3 (4.00-5.30); RED CELL DISTRIBUTION WIDTH 15.3 % (11.6-17.2); WHITE BLOOD COUNT 22.1 TH/MM3 (4.0-11.0)
[2017-11-23] MEDS: FAMOTIDINE 20 MG/2 ML VIAL IV PUSH SCH (04:28)
[2017-11-23] MEDS: levETIRAcetam INJ 500 MG in SODIUM CHLORIDE 0.9% INJ 100 ML IV SCH ×2 (04:28→18:53)
[2017-11-23 04:52] LABS: ALBUMIN 2.6 GM/DL (3.4-5.0); ALKALINE PHOSPHATASE 91 U/L (45-117); ALT (GPT) 24 U/L (10-53); AST (GOT) 29 U/L (15-37); BICARBONATE 20.9 MEQ/L (21.0-32.0); BLOOD UREA NITROGEN 18 MG/DL (7-18); CALCIUM 9.3 MG/DL (8.5-10.1); CHLORIDE 129 MEQ/L (98-107); CREATININE 0.96 MG/DL (0.50-1.00); GLOMERULAR FILTRATION RATE 59 ML/MIN (>89); GLUCOSE,RANDOM 130 MG/DL (74-106); MAGNESIUM 2.2 MG/DL (1.5-2.5); TOTAL BILIRUBIN ADULT 0.4 MG/DL (0.2-1.0); TOTAL PROTEIN 5.6 GM/DL (6.4-8.2)
[2017-11-23 05:02] LABS: SODIUM (NA) 158 MEQ/L (136-145)
--- NOTE | 2017-11-23 05:16 | RADRPT ---
EXAM DATE/TIME: 11/23/2017 04:10 [facility] COMPARISON: CHEST SINGLE AP, November 22, 2017, 7:33. INDICATIONS : Respiratory disease. MEDICAL HISTORY : Cardiovascular disease. SURGICAL HISTORY : None. ENCOUNTER: Subsequent ACUITY: 4 - 6 days PAIN SCORE: Non-responsive. LOCATION: Bilateral chest FINDINGS: Portable AP view of the chest demonstrates a normal-sized cardiac silhouette. ETT and right IJ line r emain present. There are is a stable bibasilar pleural-parenchymal opacity. No pneumothorax is visual ized. Multiple EKG lines overlie the patient. CONCLUSION: Stable chest x-ray with mild bibasilar opacity representing either atelectasis or consolidation. Jose Mccartney MD on November 23, 2017 at 5:14 Board Certified Radiologist. This report was verified electronically.
--- NOTE | 2017-11-23 05:27 | RADRPT ---
EXAM DATE/TIME: 11/23/2017 05:09 [place] COMPARISON: CT BRAIN W/O CONTRAST, November 21, 2017, 21:25. INDICATIONS : Evaluate hemorrhage. RADIATION DOSE: 56.35 CTDIvol (mGy) MEDICAL HISTORY : Cardiovascular disease. Pancreatitis. SURGICAL HISTORY : None. ENCOUNTER: Initial ACUITY: 1 day PAIN SCALE: 5/10 LOCATION: cranial TECHNIQUE: Multiple contiguous axial images were obtained of the head. Using automated exposure control and adj ustment of the mA and/or kV according to patient size, radiation dose was kept as low as reasonably a chievable to obtain optimal diagnostic quality images. DICOM format image data is available electro nically for review and comparison. FINDINGS: There has been interval left parietal craniotomy with overlying skin justen. [place] hole is present in the left parieto-occipital region and there is a left frontal gt hole through which passes a ventr icular catheter which terminates in the midline of the lateral ventricles. There is extra-axial and i ntra-axial air related to the recent procedures. Ventricles are normal in size and there is 7 mm of l [id number] midline shift, decreased from 9 mm previously. There is a residual amount of blood produ cts in the left parietal region but overall decreased from the prior study. There is vasogenic edema in the left parietal region. Minimal extra-axial fluid is present. CONCLUSION: 1. Decreased left parietal region blood products following surgery. There is 7 mm of midline shift co mpared to 9 mm previously. 2. A left frontal ventricular catheter terminates in the midline and the lateral ventricles. The vent ricles are normal in size. Jose Mccartney MD on November 23, 2017 at 5:22 Board Certified Radiologist. This report was verified electronically.
--- NOTE | 2017-11-23 08:58 | HHI.NSPN ---
(Zack Ramirez) History Chief Complaint: s/p left crani for ICH evacuation. (Zack Ramirez) Interval History 62-year-old female admitted on 11/19/2017 after she presented to the emergency room with symptoms that seem to be related to morphine withdrawal with the shaking in her lower extremities along with the anxiety abdominal pain and nausea. She has an intrathecal pain pump placed to which the daughter states enters into the cervical and lumbar spine last year with a last pump refill with morphine 3 months ago. The pain specialist informed her that she could not refill the pump anymore since the [place] was not authorizing this. She has a past medical history significant for chronic neck and back pain with history of cervical and lumbar spine surgeries, COPD, fibromyalgia, celiac disease and anxiety. She was admitted to [facility] for further evaluation where she became suddenly lethargic, aphasic and weak on the right side yesterday after the endoscopy for biliary obstruction. The CT of the head was done and shows large posterior parietal lobe hemorrhagic stroke with brain edema. She was transferred to the intensive care unit and intubated for an airway protection and started on hyperosmolar therapy. Neurosurgery has been consulted this morning for the cerebral hemorrhage. 11/22/17: Pt underwent a Left parietal craniotomy for intracerebral hematoma evacuation; Left frontal gt hole placement for ventriculostomy early this morning. Post op assessment done by me reveals she is sedated on Diprivan. Pupils are 3mm bilaterally, reactive bilaterally. Ventriculostomy drain in place at 10cm H20 without drainage or waveform and ICPs read 12. There is air in the line. 11/23/17: Waveform improved yesterday after flushing and again this morning was dampened with air in the ventriculostomy line. This was flushed again using sterile technique with betadine swab at the CSF port and a waveform returned and ICPs are 7. Pt is sedated and intubated. She opens her eyes. Not following commands. (Zack Ramirez) System Review Comments Not able to obtain given clinical condition. (Zack Ramirez) Exam Results Vital Signs Date Time Temp Pulse Resp B/P (MAP) Pulse Ox O2 Delivery O2 Flow Rate FiO2 11/23/17 06:26 100 40 11/23/17 06:00 90 11/23/17 04:00 100.6 16 113/67 (82) Intake and Output 11/23/17 11/23/17 11/24/17 08:00 16:00 00:00 Intake Total 555 ml Output Total 732 ml Balance -177 ml (Zack Ramirez) Physical Examination General: Pt sedated and intubated in NAD. Eyes: Pupils 5mm bilaterally reactive bilaterally. Sclera anicteric. Resp: Intubated. Volume Control rate 14. FiO2 40%. Peep 5. CTA bilaterally. Heart: Mild tachycardia no murmurs. Levophed drip. Abd: Soft positive bs Skin: No cyanosis or erythema. Head bandaged dry. Muscle: Not following for muscle testing. Localizes with LUE to pain. Right hemiparesis. Neuro: Pt sedated on Diprivan. Pupils 5mm bilaterally reactive bilaterally. Not following commands. Ventriculostomy drain in place at 10cm H20 with waveform. ICP read 7. (Zack Ramirez) Lab, Micro, Other Results Last Impressions Head CT 11/23/17 0600 Signed Impressions: Service Date/Time: November 05:09 - CONCLUSION: 1. Decreased left parietal region blood products following surgery. There is 7 mm of midline shift compared to 9 mm previously. 2. A left frontal ventricular catheter terminates in the midline and the lateral ventricles. The ventricles are normal in size. Jose Mccartney MD Chest X-Ray 11/23/17 0000 Signed Impressions: Service Date/Time: November 04:10 - CONCLUSION: Stable chest x-ray with mild bibasilar opacity representing either atelectasis or consolidation. Jose Mccartney MD Abdomen/Pelvis CT 11/21/17 0000 Signed Impressions: Service Date/Time: Tuesday, November 21, 2017 21:37 - CONCLUSION: 1. No evidence to indicate pancreatitis. 2. Multiple stones in the gallbladder. 3. Multiple bilateral renal calculi.. 4. No significant changes compared to the prior exam. Meir Donnelly MD GI Procedure 11/20/17 0000 Signed Impressions: Service Date/Time: Monday, November 20, 2017 16:40 - CONCLUSION: ERCP as above. Jose Echevarria MD Laboratory Tests Test 11/22/17 11:43 11/22/17 18:30 11/23/17 04:00 Sodium Level 154 MEQ/L 157 MEQ/L 158 MEQ/L White Blood Count 22.1 TH/MM3 Red Blood Count 3.71 MIL/MM3 Hemoglobin 10.7 GM/DL Hematocrit 31.5 % Mean Corpuscular Volume 84.9 FL Mean Corpuscular Hemoglobin 28.9 PG Mean Corpuscular Hemoglobin Concent 34.0 % Red Cell Distribution Width 15.3 % Platelet Count 130 TH/MM3 Mean Platelet Volume 8.3 FL Neutrophils (%) (Auto) 80.4 % Lymphocytes (%) (Auto) 9.9 % Monocytes (%) (Auto) 9.4 % Eosinophils (%) (Auto) 0.0 % Basophils (%) (Auto) 0.3 % Neutrophils # (Auto) 17.7 TH/MM3 Lymphocytes # (Auto) 2.2 TH/MM3 Monocytes # (Auto) 2.1 TH/MM3 Eosinophils # (Auto) 0.0 TH/MM3 Basophils # (Auto) 0.1 TH/MM3 CBC Comment DIFF FINAL Differential Comment Blood Urea Nitrogen 18 MG/DL Creatinine 0.96 MG/DL Random Glucose 130 MG/DL Total Protein 5.6 GM/DL Albumin 2.6 GM/DL Calcium Level 9.3 MG/DL Magnesium Level 2.2 MG/DL Alkaline Phosphatase 91 U/L Aspartate Amino Transf (AST/SGOT) 29 U/L Alanine Aminotransferase (ALT/SGPT) 24 U/L Total Bilirubin 0.4 MG/DL Potassium Level 2.9 MEQ/L Chloride Level 129 MEQ/L Carbon Dioxide Level 20.9 MEQ/L Anion Gap 8 MEQ/L Estimat Glomerular Filtration Rate 59 ML/MIN (Zack Ramirez) Medical Decision Making Impression and Plan A: Large left posterior temporal lobe prior low but occipital lobe hemorrhagic stroke with associated moderate mass effect and midline shift. The intracerebral hematoma measures approximately 80 ml. Chronic neck and back pain with intrathecal pump placement which was not refilled due to [facility]. Likely is undergoing opiate withdrawal. Biliary obstruction with jaundice status post ERCP History of COPD Staph epidermidis bacteremia 2 with the urinary tract infection. P: Continue with critical care Continue to monitor Neuro exam Continue with ventriculostomy drainage and ICP management. (Zack Ramirez) Attending Statement The exam, history, and the medical decision-making described in the above note were completed with the assistance of the mid-level provider. I reviewed and agree with the findings presented. I attest that I had a [id number] encounter with the patient on the same day, and personally performed and documented my assessment and findings in the medical record. Follow-up CT of the head with the evacuated that hematoma and decreased midline shift. Opens her eyes with spontaneous movements in the left side right upper extremity but not right upper extremity. Not following commands. Wean sedation and ventilatory status as tolerated. Updated daughter at bedside. (Og Womack MD) Zack Ramirez Nov 23, 2017 08:58 Og Womack MD Nov 23, 2017 18:35
[2017-11-23] MEDS: TRIAMCINOLONE ACETONIDE 0.1% CREAM 15 GM TOPICAL SCH ×2 (09:00→21:00)
[2017-11-23] MEDS: cefTRIAXone INJ 1,000 MG in SODIUM CHLORIDE 0.9% INJ 100 ML IV SCH (09:59)
[2017-11-23] MEDS: SENNOSIDES SYRUP 8.8 MG/5 ML CUP PO SCH (10:00)
[2017-11-23] MEDS: POTASSIUM CHLOR 40 MEQ PREMIX 100 ML IV SCH ×2 (10:00→15:26)
[2017-11-23] MEDS: DOCUSATE SODIUM 100 MG/10 ML UDC PO SCH ×2 (10:00→21:19)
[2017-11-23] MEDS: SODIUM CHLORIDE 0.9% FLUSH 10 ML FLUSH IV FLUSH SCH ×2 (10:00→21:19)
[2017-11-23] MEDS: SODIUM CHLOR 0.9% 1000 ML INJ 1,000 ML IV SCH (10:01)
[2017-11-23] MEDS: MORPHINE SULFATE 4 MG/ML INJ IV PUSH PRN (10:35)
[2017-11-23] MEDS ORDERED: RESP: ALBUTEROL 2.5 MG/3 ML NEB (PRN) NEB (16:00)
[2017-11-23] MEDS: RESP: ALBUTEROL 2.5 MG/IPRATROPIUM 0.5 MG NEB (SCH) NEB ×2 (16:16→20:09)
--- NOTE | 2017-11-23 16:18 | HHI.CCPN ---
Subjective Remarks/Hospital Course 62-year-old female with a past medical history significant for chronic pain with morphine pump, fibromyalgia, celiac disease and anxiety presented initially to the hospital for evaluation of leg spasms. The patient reports that she woke up approximately 1 AM and "could not control her legs." Her daughter gave her a 30 mg tablet of morphine to help with her symptoms yet they persisted. She was admitted to [facility] floor for further evaluation where she became suddenly lethargic and weak on the right side. The CT of the head was done immediately and shows large posterior parietal lobe hemorrhagic stroke with brain edema. She was immediately intubated for an airway protection and started on hyperosmolar therapy. 11/22: Patient underwent Left parietal craniotomy for intracerebral hematoma evacuation; Left frontal gt hole placement for ventriculostomy by Dr. Womack. Seen in the ICU immediately postop. Profoundly hypotensive systolic blood pressure initially in the 50s. Stat bolus of LR was ordered by anesthesia. Levophed increased to 12 mcg/min with improvement in systolic blood pressure to 110s. We will place arterial line. Currently patient is under the influence of anesthesia, not moving any extremities Subjective 11/23: T-max 101.1. Continues to be febrile. Placing NG tube and Julian catheter. Right upper extremity without movement. Withdraws right lower externally. Spontaneous movement to left upper and lower extremity. Starting on tube feeding. Objective Vital Signs Date Time Temp Pulse Resp B/P (MAP) Pulse Ox O2 Delivery O2 Flow Rate FiO2 11/23/17 15:42 100 40 11/23/17 13:25 97 109/66 11/23/17 04:00 100.6 16 Intake and Output 11/23/17 11/23/17 11/23/17 07:59 15:59 23:59 Intake Total 555 ml Output Total 732 ml Balance -177 ml Result Diagram: 11/23/17 0400 11/23/17 1250 Other Results Microbiology Date/Time Source Procedure Growth Status 11/22/17 10:25 Blood Peripheral Aerobic Blood Culture - Preliminary NO GROWTH IN 1 DAY Resulted 11/22/17 10:25 Blood Peripheral Anaerobic Blood Culture - Preliminary NO GROWTH IN 1 DAY Resulted 11/19/17 04:05 Urine Clean Catch Urine Culture - Final Escherichia Coli Complete Imaging Last Impressions Head CT 11/23/17 0600 Signed Impressions: Service Date/Time: November 05:09 - CONCLUSION: 1. Decreased left parietal region blood products following surgery. There is 7 mm of midline shift compared to 9 mm previously. 2. A left frontal ventricular catheter terminates in the midline and the lateral ventricles. The ventricles are normal in size. Jose Mccartney MD Chest X-Ray 11/23/17 0000 Signed Impressions: Service Date/Time: November 04:10 - CONCLUSION: Stable chest x-ray with mild bibasilar opacity representing either atelectasis or consolidation. Jose Mccartney MD Abdomen/Pelvis CT 11/21/17 0000 Signed Impressions: Service Date/Time: Tuesday, November 21, 2017 21:37 - CONCLUSION: 1. No evidence to indicate pancreatitis. 2. Multiple stones in the gallbladder. 3. Multiple bilateral renal calculi.. 4. No significant changes compared to the prior exam. Meir Donnelly MD GI Procedure 11/20/17 0000 Signed Impressions: Service Date/Time: Monday, November 20, 2017 16:40 - CONCLUSION: ERCP as above. Jose Echevarria MD Objective Remarks GENERAL: 64-year-old female currently orotracheally intubated SKIN: Warm and dry. HEAD: Circumferential craniotomy dressing in place and left frontal EVD in place EYES: No scleral icterus. No injection or drainage. Pupils bilaterally 4 mm sluggish ENT: Orotracheally intubated NECK: Supple, trachea midline. No JVD or lymphadenopathy. Right IJ CVL is clean dry and intact CARDIOVASCULAR: Regular rate and rhythm without murmurs, gallops, or rubs. RESPIRATORY: Breath sounds equal bilaterally. No accessory muscle use. GASTROINTESTINAL: Abdomen soft, non-tender, nondistended. Subcutaneous morphine pump in the right upper quadrant without mottling MUSCULOSKELETAL: No cyanosis, or edema. NEURO EXAM: Patient is intubated under residual anesthesia which limits neuro exam. Pupils are 4 mm sluggish. No withdrawal in any extremities no movement right upper extremity. Withdraws to pain right lower extremity. Spontaneous moving left upper and lower extremity. Nods head to simple answers appropriately. Urinary Catheter: Yes Assessment to: Continue Julian insert reason: Prolonged Immobilization Vascular Central Line Catheter: Yes Assessment to: Continue Line: Central Venous Catheter Side: Right Location: Internal, Jugular A/P Assessment and Plan NEURO/PSYCH: Large acute intraparenchymal hemorrhage involving the left parietal lobe Midline shift to the right by 9 mm [place] tip barachnoid hemorrhage and cerebral edema on the left side Depression/anxiety Chronic pain on Morphine pump Chronic opioid use ALGAACIQ History of C-spine fusion Status post left parietal craniotomy for intracerebral hematoma evacuation, Left frontal gt hole placement for ventriculostomy by Dr. Womack. - Target CPP 60-70 Left ventric -12 cm clear. -10 cm H2O - 3% sodium chloride infusion, target Na 150-155 currently on hold is currently 159 - Received 1 g of levetiracetam. Currently at 500 mg IV every 12 -Propofol currently at 3 mcg/kg/min sedation pain control and ventilator synchrony Holding buspirone 30 mg twice daily and venlafaxine 50 mg twice daily for depression/anxiety. Resume when clinically indicated Holding acetaminophen/hydrocodone 325/7.51 tab every 6 hours as needed pain Holding scheduled morphine sulfate 30 mg every 12 hours Morphine liquid 5 mg every 6 hours scheduled with 1-2 mg every 3 hours as needed pain 1 through 10 Acetaminophen for fever RESP: Acute respiratory failure Ongoing tobaccoism COPD - Intubated for an airway protection ACV 14/550/5/40 Ventilator bundle Albuterol/ipratropium aerosols every 6 hours with albuterol aerosols every 2 hours as needed dyspnea Tobacco cessation booklet provided with appropriate - CO2 goal physiological range CVS: Hypotension/shock Mild lactic acidosis History of hypertension - Use norepinephrine currently at 7 mcg/min to target map above 65 CPP 60-70 - NS currently at 75ml per hour, - 3% saline currently on hold with sodium currently 159 - Hold metoprolol and lisinopril GI: Acute pancreatitis Opioid-induced constipation Cholelithiasis History of celiac disease 11/21/17 s/p ERCP with sphincterotomy and balloon extraction, finding choledocholithiasis. AST worsened today, mild increase 0.8. tumor markers WNL. lipase WNL. WBC significant increase today, appears diaphoretic. tachycardic. GI signed off Start tube feedings with vital 1.5 goal 50 cc an hour Lansoprazole 30 mg daily for GI prophylaxis. Continue docusate sodium 100 mg twice daily and senna 8.6 mg twice daily. Patient is on polyethylene glycol 17 g twice daily at home for constipation : Julian catheter for accurate I's and O's in a critically ill patient RENAL: Acute kidney insufficiency Nephrolithiasis - Monitor renal function closely, maintain Julian -Continue aggressive fluid resuscitation as above ID: E. coli UTI Coag negative staph bacteremia - Continue ceftriaxone n for UTI - Repeat blood cultures, vancomycin 1 g 1 Pertinent cultures 11/19 -UA -pansensitive E. coli 11/20 -blood cultures 2 -coag negative staph/staph epi pansensitive 11/22 -blood cultures 2 -no growth to date HEME: Leukocytosis Normocytic anemia Thrombocytopenia Sickle cell trait? - Leukocytosis most likely stress related - Monitor CBC daily. Follow trend DVT GI prophylaxis - Teds SCDs - No pharmacological DVT prophylaxis due to acute ICH - Iansoprazole 30 mg by tube daily Critical Care: The total critical care time was 35 minutes. Time to perform other separately billable procedures was not included in the critical care time. Rafael Saldana MD Nov 23, 2017 16:18
[2017-11-23] MEDS: MORPHINE SULFATE ORAL SOLN 10 MG/0.5 ML SYRINGE PO SCH (18:53)
[2017-11-23] MEDS: ARTIFICIAL TEARS OPTH SOLN 15 ML BTL EACH EYE SCH (21:19)
[2017-11-23] MEDS: SENNOSIDES SYRUP 8.8 MG/5 ML CUP NG SCH (21:20)
[2017-11-24] VITALS (15 sets, daily range): BP systolic 103–128; BP diastolic 54–73; PULSE 85–114; RESP 11–28; TEMP 99.7–101.1; O2SAT 100
[2017-11-24] MEDS: MORPHINE SULFATE ORAL SOLN 10 MG/0.5 ML SYRINGE PO SCH ×4 (00:21→17:26)
[2017-11-24] MEDS: SODIUM CHLOR 0.9% 1000 ML INJ 1,000 ML IV SCH (00:21)
[2017-11-24] MEDS: RESP: ALBUTEROL 2.5 MG/IPRATROPIUM 0.5 MG NEB (SCH) NEB ×4 (03:33→20:13)
[2017-11-24] MEDS: NOREPINEPHRINE INJ 4 MG in SODIUM CHLOR 0.9% 250 ML INJ 246 ML IV PRN ×3 (03:47→20:40)
[2017-11-24] MEDS: levETIRAcetam INJ 500 MG in SODIUM CHLORIDE 0.9% INJ 100 ML IV SCH ×2 (04:45→17:26)
[2017-11-24 04:49] LABS: AUTOMATED NEUTROPHIL # 14.5 TH/MM3 (1.8-7.7); BASOPHIL % 0.2 % (0.0-2.0); HEMATOCRIT 28.4 % (35.0-46.0); HEMOGLOBIN 9.3 GM/DL (11.6-15.3); LYMPHOCYTE # 2.9 TH/MM3 (1.0-4.8); MEAN CELL VOLUME 85.4 FL (80.0-100.0); MEAN CORPUSCULAR HGB CONC 32.8 % (32.0-36.0); MEAN PLATELET VOLUME 9.3 FL (7.0-11.0); MONO % 9.4 % (0.0-8.0); MONOCYTE # 1.8 TH/MM3 (0-0.9); NEUT % 75.4 % (16.0-70.0); PLATELET COUNT 129 TH/MM3 (150-450); RED BLOOD COUNT 3.32 MIL/MM3 (4.00-5.30); RED CELL DISTRIBUTION WIDTH 15.4 % (11.6-17.2); WHITE BLOOD COUNT 19.2 TH/MM3 (4.0-11.0)
[2017-11-24] MEDS: PROPOFOL 1000 MG/100 ML IV PRN (05:03)
[2017-11-24 05:26] LABS: ALBUMIN 2.3 GM/DL (3.4-5.0); ALKALINE PHOSPHATASE 91 U/L (45-117); ALT (GPT) 25 U/L (10-53); AST (GOT) 37 U/L (15-37); BICARBONATE 21.9 MEQ/L (21.0-32.0); BLOOD UREA NITROGEN 19 MG/DL (7-18); CALCIUM 9.9 MG/DL (8.5-10.1); CHLORIDE 130 MEQ/L (98-107); CREATININE 1.06 MG/DL (0.50-1.00); GLOMERULAR FILTRATION RATE 52 ML/MIN (>89); GLUCOSE,RANDOM 156 MG/DL (74-106); MAGNESIUM 2.4 MG/DL (1.5-2.5); PHOSPHORUS 1.9 MG/DL (2.5-4.9); TOTAL BILIRUBIN ADULT 0.4 MG/DL (0.2-1.0); TOTAL PROTEIN 5.7 GM/DL (6.4-8.2)
[2017-11-24 05:35] LABS: SODIUM (NA) 162 MEQ/L (136-145)
[2017-11-24] MEDS: ARTIFICIAL TEARS OPTH SOLN 15 ML BTL EACH EYE SCH ×3 (06:00→22:02)
[2017-11-24] MEDS ORDERED: POTASSIUM PHOSPHATE INJ 30 MMOL in SODIUM CHLOR 0.9% 250 ML INJ 250 ML IV ONE (07:00)
[2017-11-24] MEDS ORDERED: POTASSIUM CHLOR 40 MEQ PREMIX 100 ML IV ONE (07:00)
[2017-11-24] MEDS: cefTRIAXone INJ 1,000 MG in SODIUM CHLORIDE 0.9% INJ 100 ML IV SCH (07:50)
[2017-11-24] MEDS: SENNOSIDES SYRUP 8.8 MG/5 ML CUP NG SCH ×2 (08:44→20:36)
[2017-11-24] MEDS: MORPHINE SULFATE 4 MG/ML INJ IV PUSH PRN (08:44)
[2017-11-24] MEDS: LANSOPRAZOLE SOLUTAB 30 MG TAB NG SCH (08:44)
[2017-11-24] MEDS: DOCUSATE SODIUM 100 MG/10 ML UDC PO SCH ×2 (08:44→20:36)
[2017-11-24] MEDS: SODIUM CHLORIDE 0.9% FLUSH 10 ML FLUSH IV FLUSH SCH ×2 (08:44→20:36)
[2017-11-24] MEDS: ACETAMINOPHEN 1000 MG/100 ML 100 ML IV PRN (08:44)
--- NOTE | 2017-11-24 08:57 | HHI.NSPN ---
(Zack Ramirez) History Chief Complaint: s/p left crani for ICH evacuation. (Zack Ramirez) Interval History 62-year-old female admitted on 11/19/2017 after she presented to the emergency room with symptoms that seem to be related to morphine withdrawal with the shaking in her lower extremities along with the anxiety abdominal pain and nausea. She has an intrathecal pain pump placed to which the daughter states enters into the cervical and lumbar spine last year with a last pump refill with morphine 3 months ago. The pain specialist informed her that she could not refill the pump anymore since the CT was not authorizing this. She has a past medical history significant for chronic neck and back pain with history of cervical and lumbar spine surgeries, COPD, fibromyalgia, celiac disease and anxiety. She was admitted to [facility] for further evaluation where she became suddenly lethargic, aphasic and weak on the right side yesterday after the endoscopy for biliary obstruction. The CT of the head was done and shows large posterior parietal lobe hemorrhagic stroke with brain edema. She was transferred to the intensive care unit and intubated for an airway protection and started on hyperosmolar therapy. Neurosurgery has been consulted this morning for the cerebral hemorrhage. 11/22/17: Pt underwent a Left parietal craniotomy for intracerebral hematoma evacuation; Left frontal gt hole placement for ventriculostomy early this morning. Post op assessment done by me reveals she is sedated on Diprivan. Pupils are 3mm bilaterally, reactive bilaterally. Ventriculostomy drain in place at 10cm H20 without drainage or waveform and ICPs read 12. There is air in the line. 11/23/17: Waveform improved yesterday after flushing and again this morning was dampened with air in the ventriculostomy line. This was flushed again using sterile technique with betadine swab at the CSF port and a waveform returned and ICPs are 7. Pt is sedated and intubated. She opens her eyes. Not following commands. 11/24/17: Pt sedated on Diprivan, held and pt starting to open eyes and becomes agitated. Not following commands. Ventriculostomy in place at [id number], ICP 7. (Zack Ramirez) System Review Comments Not able to obtain given clinical condition. (Zack Ramirez) Exam Results Vital Signs Date Time Temp Pulse Resp B/P (MAP) Pulse Ox O2 Delivery O2 Flow Rate FiO2 11/24/17 08:00 101.1 105 14 128/73 (91) 100 11/24/17 08:00 40 Intake and Output 11/24/17 11/24/17 11/25/17 08:00 16:00 00:00 Intake Total 3024 ml Output Total 700.0 ml Balance 2324.0 ml (Zack Ramirez) Physical Examination General: Pt sedated and intubated in NAD. Eyes: Pupils 3mm bilaterally reactive bilaterally. Sclera anicteric. Resp: Intubated. Volume Control rate 14. FiO2 40%. Peep 5. CTA bilaterally. Heart: Mild tachycardia no murmurs. Dopamine drip. Abd: Soft positive bs Skin: No cyanosis or erythema. Head bandaged dry. Muscle: Not following for muscle testing. Localizes with LUE to pain. Right hemiparesis. Neuro: Pt sedated on Diprivan. Pupils 3mm bilaterally reactive bilaterally. Not following commands. Ventriculostomy drain in place at 10cm H20 with waveform. ICP read 7. (Zack Ramirez) Lab, Micro, Other Results Last Impressions Head CT 11/23/17 0600 Signed Impressions: Service Date/Time: November 05:09 - CONCLUSION: 1. Decreased left parietal region blood products following surgery. There is 7 mm of midline shift compared to 9 mm previously. 2. A left frontal ventricular catheter terminates in the midline and the lateral ventricles. The ventricles are normal in size. Jose Mccartney MD Chest X-Ray 11/23/17 0000 Signed Impressions: Service Date/Time: November 04:10 - CONCLUSION: Stable chest x-ray with mild bibasilar opacity representing either atelectasis or consolidation. Jose Mccartney MD Abdomen/Pelvis CT 11/21/17 0000 Signed Impressions: Service Date/Time: Tuesday, November 21, 2017 21:37 - CONCLUSION: 1. No evidence to indicate pancreatitis. 2. Multiple stones in the gallbladder. 3. Multiple bilateral renal calculi.. 4. No significant changes compared to the prior exam. Meir Donnelly MD GI Procedure 11/20/17 0000 Signed Impressions: Service Date/Time: Monday, November 20, 2017 16:40 - CONCLUSION: ERCP as above. Jose Echevarria MD Laboratory Tests Test 11/23/17 12:50 11/23/17 18:15 11/23/17 23:50 11/24/17 04:00 Sodium Level 159 MEQ/L 160 MEQ/L 162 MEQ/L 162 MEQ/L Potassium Level 3.7 MEQ/L 3.1 MEQ/L White Blood Count 19.2 TH/MM3 Red Blood Count 3.32 MIL/MM3 Hemoglobin 9.3 GM/DL Hematocrit 28.4 % Mean Corpuscular Volume 85.4 FL Mean Corpuscular Hemoglobin 28.0 PG Mean Corpuscular Hemoglobin Concent 32.8 % Red Cell Distribution Width 15.4 % Platelet Count 129 TH/MM3 Mean Platelet Volume 9.3 FL Neutrophils (%) (Auto) 75.4 % Lymphocytes (%) (Auto) 15.0 % Monocytes (%) (Auto) 9.4 % Eosinophils (%) (Auto) 0.0 % Basophils (%) (Auto) 0.2 % Neutrophils # (Auto) 14.5 TH/MM3 Lymphocytes # (Auto) 2.9 TH/MM3 Monocytes # (Auto) 1.8 TH/MM3 Eosinophils # (Auto) 0.0 TH/MM3 Basophils # (Auto) 0.0 TH/MM3 CBC Comment DIFF FINAL Differential Comment Blood Urea Nitrogen 19 MG/DL Creatinine 1.06 MG/DL Random Glucose 156 MG/DL Total Protein 5.7 GM/DL Albumin 2.3 GM/DL Calcium Level 9.9 MG/DL Phosphorus Level 1.9 MG/DL Magnesium Level 2.4 MG/DL Alkaline Phosphatase 91 U/L Aspartate Amino Transf (AST/SGOT) 37 U/L Alanine Aminotransferase (ALT/SGPT) 25 U/L Total Bilirubin 0.4 MG/DL Chloride Level 130 MEQ/L Carbon Dioxide Level 21.9 MEQ/L Anion Gap 10 MEQ/L Estimat Glomerular Filtration Rate 52 ML/MIN 11/24/17 11/24/17 11/25/17 15:00 23:00 07:00 Output Total 0 ml Balance 0 ml Tube Feeding Residual Discard 0 ml (Zack Ramirez) Medical Decision Making Impression and Plan A: Large left posterior temporal lobe prior low but occipital lobe hemorrhagic stroke with associated moderate mass effect and midline shift. The intracerebral hematoma measures approximately 80 ml. Chronic neck and back pain with intrathecal pump placement which was not refilled due to [facility]. Likely is undergoing opiate withdrawal. Biliary obstruction with jaundice status post ERCP History of COPD Staph epidermidis bacteremia 2 with the urinary tract infection. P: Continue with critical care Continue to monitor Neuro exam Continue with ventriculostomy drainage and ICP management. (Zack Ramirez) Attending Statement The exam, history, and the medical decision-making described in the above note were completed with the assistance of the mid-level provider. I reviewed and agree with the findings presented. I attest that I had a [id number] encounter with the patient on the same day, and personally performed and documented my assessment and findings in the medical record. Improving exam with normal ICPs. Does not follow commands likely from the fascia with the right upper extremity plegia and lower extremity weakness although moves the left side spontaneously. We'll challenge ventriculostomy and wean sedation ventilator status as tolerated. (Og Womack MD) Zack Ramirez Nov 24, 2017 08:57 Og Womack MD Nov 24, 2017 14:20
[2017-11-24] MEDS: MIDAZOLAM 100 MG/100 ML INJ 100 ML IV PRN (11:10)
--- NOTE | 2017-11-24 11:10 | HHI.CCPN ---
Subjective Remarks/Hospital Course 62-year-old female with a past medical history significant for chronic pain with morphine pump, fibromyalgia, celiac disease and anxiety presented initially to the hospital for evaluation of leg spasms. The patient reports that she woke up approximately 1 AM and "could not control her legs." Her daughter gave her a 30 mg tablet of morphine to help with her symptoms yet they persisted. She was admitted to [facility] floor for further evaluation where she became suddenly lethargic and weak on the right side. The CT of the head was done immediately and shows large posterior parietal lobe hemorrhagic stroke with brain edema. She was immediately intubated for an airway protection and started on hyperosmolar therapy. 11/22: Patient underwent Left parietal craniotomy for intracerebral hematoma evacuation; Left frontal gt hole placement for ventriculostomy by Dr. Womack. Seen in the ICU immediately postop. Profoundly hypotensive systolic blood pressure initially in the 50s. Stat bolus of LR was ordered by anesthesia. Levophed increased to 12 mcg/min with improvement in systolic blood pressure to 110s. We will place arterial line. Currently patient is under the influence of anesthesia, not moving any extremities 11/23: T-max 101.1. Continues to be febrile. Placing NG tube and Julian catheter. Right upper extremity without movement. Withdraws right lower externally. Spontaneous movement to left upper and lower extremity. Starting on tube feeding. Subjective 11/24: Tmax 101.1. Currently. 2 bowel movement overnight. Urine with Escherichia coli/staph epi in blood. Potassium phosphorus been replaced. Hypertonic saline held due to sodium 160+. Very arousable off sedation with ICP is controlled. Objective Vital Signs Date Time Temp Pulse Resp B/P (MAP) Pulse Ox O2 Delivery O2 Flow Rate FiO2 11/24/17 09:00 40 11/24/17 08:54 100 11/24/17 08:00 101.1 105 14 128/73 (91) Intake and Output 11/24/17 11/24/17 11/24/17 07:59 15:59 23:59 Intake Total 3024 ml 300 ml Output Total 700 ml 0 ml Balance 2324 ml 300 ml Result Diagram: 11/24/17 0400 11/24/17 0400 Other Results Microbiology Date/Time Source Procedure Growth Status 11/22/17 10:25 Blood Peripheral Aerobic Blood Culture - Preliminary NO GROWTH IN 2 DAYS Resulted 11/22/17 10:25 Blood Peripheral Anaerobic Blood Culture - Preliminary NO GROWTH IN 2 DAYS Resulted 11/19/17 04:05 Urine Clean Catch Urine Culture - Final Escherichia Coli Complete Imaging Last Impressions Head CT 11/23/17 0600 Signed Impressions: Service Date/Time: November 05:09 - CONCLUSION: 1. Decreased left parietal region blood products following surgery. There is 7 mm of midline shift compared to 9 mm previously. 2. A left frontal ventricular catheter terminates in the midline and the lateral ventricles. The ventricles are normal in size. Jose Mccartney MD Chest X-Ray 11/23/17 0000 Signed Impressions: Service Date/Time: November 04:10 - CONCLUSION: Stable chest x-ray with mild bibasilar opacity representing either atelectasis or consolidation. Jose Mccartney MD Abdomen/Pelvis CT 11/21/17 0000 Signed Impressions: Service Date/Time: Tuesday, November 21, 2017 21:37 - CONCLUSION: 1. No evidence to indicate pancreatitis. 2. Multiple stones in the gallbladder. 3. Multiple bilateral renal calculi.. 4. No significant changes compared to the prior exam. Meir Donnelly MD GI Procedure 11/20/17 0000 Signed Impressions: Service Date/Time: Monday, November 20, 2017 16:40 - CONCLUSION: ERCP as above. Jose Echevarria MD Objective Remarks GENERAL: 64-year-old female currently orotracheally intubated SKIN: Warm and dry. HEAD: Circumferential craniotomy dressing in place and left frontal EVD in place EYES: No scleral icterus. No injection or drainage. Pupils bilaterally 4 mm sluggish ENT: Orotracheally intubated NECK: Supple, trachea midline. No JVD or lymphadenopathy. Right IJ CVL is clean dry and intact CARDIOVASCULAR: Regular rate and rhythm without murmurs, gallops, or rubs. RESPIRATORY: Breath sounds equal bilaterally. No accessory muscle use. GASTROINTESTINAL: Abdomen soft, non-tender, nondistended. Subcutaneous morphine pump in the right upper quadrant without mottling MUSCULOSKELETAL: No cyanosis, or edema. NEURO EXAM: Patient is intubated under residual anesthesia which limits neuro exam. Pupils are 4 mm sluggish. No withdrawal in any extremities no movement right upper extremity. Withdraws to pain right lower extremity. Spontaneous moving left upper and lower extremity. Nods head to simple answers appropriately. Line: Central Venous Catheter Side: Right Location: Internal, Jugular A/P Assessment and Plan NEURO/PSYCH: Large acute intraparenchymal hemorrhage involving the left parietal lobe Midline shift to the right by 9 mm [place]illa tip barachnoid hemorrhage and cerebral edema on the left side Depression/anxiety Chronic pain on Morphine pump Chronic opioid use [facility] [place] [facility] [place] History of C-spine fusion Status post left parietal craniotomy for intracerebral hematoma evacuation, Left frontal gt hole placement for ventriculostomy by Dr. Womack. - Target CPP 60-70 Left ventric -3 cm clear. -10 cm H2O - 3% sodium chloride infusion, target Na 150-155 currently on hold is currently 159 - Received 1 g of levetiracetam. Currently at 500 mg IV every 12 -Propofol switched to midazolam drip titrated to rest -2 ventilator synchrony ICPs currently 5 Holding buspirone 30 mg twice daily and venlafaxine 50 mg twice daily for depression/anxiety. Resume when clinically indicated Holding acetaminophen/hydrocodone 325/7.51 tab every 6 hours as needed pain Holding scheduled morphine sulfate 30 mg every 12 hours Morphine liquid 5 mg every 6 hours scheduled with 1-2 mg every 3 hours as needed pain 1 through 10 Acetaminophen for fever RESP: Acute respiratory failure Ongoing tobaccoism COPD - Intubated for an airway protection ACV 14/550/5/40 Ventilator bundle Albuterol/ipratropium aerosols every 6 hours with albuterol aerosols every 2 hours as needed dyspnea Tobacco cessation booklet provided with appropriate - CO2 goal physiological range CVS: Hypotension/shock Mild lactic acidosis History of hypertension - Use norepinephrine currently at 5 mcg/min to target map above 65 CPP 60-70 - NS currently at 75ml per hour, discontinue today / - 3% saline currently on hold with sodium currently 162 - Hold metoprolol and lisinopril while on vasopressors GI: Acute pancreatitis Opioid-induced constipation Cholelithiasis History of celiac disease 11/21/17 s/p ERCP with sphincterotomy and balloon extraction, finding choledocholithiasis. AST worsened today, mild increase 0.8. tumor markers WNL. lipase WNL. WBC significant increase today, appears diaphoretic. tachycardic. GI signed off Start tube feedings with vital 1.5 goal 50 cc an hour Lansoprazole 30 mg daily for GI prophylaxis. Continue docusate sodium 100 mg twice daily and senna 8.6 mg twice daily. Patient is on polyethylene glycol 17 g twice daily at home for constipation : Julian catheter for accurate I's and O's in a critically ill patient FEN/RENAL: Acute kidney insufficiency Nephrolithiasis Hypokalemia Hypophosphatemia Hypernatremia - Monitor renal function closely, maintain Julian -Continue aggressive fluid resuscitation as above 30 mmol K-Phos 1. 20 mg KCl by tube 1. Recheck in a.m. Free water 100 cc every 6 hours times for dosages. ID: E. coli UTI Coag negative staph bacteremia - Continue ceftriaxone n for UTI - Repeat blood cultures, vancomycin 1 g 1 Pertinent cultures 11/19 -UA -pansensitive E. coli 11/20 -blood cultures 2 -coag negative staph/staph epi pansensitive 11/22 -blood cultures 2 -no growth to date Repeat blood culture today 11/24 HEME: Leukocytosis Normocytic anemia Thrombocytopenia Sickle cell trait? - Leukocytosis most likely stress related - Monitor CBC daily. Follow trend DVT GI prophylaxis - Teds SCDs - No pharmacological DVT prophylaxis due to acute ICH - Iansoprazole 30 mg by tube daily Critical Care: The total critical care time was 35 minutes. Time to perform other separately billable procedures was not included in the critical care time. Rafael Saldana MD Nov 24, 2017 11:10
[2017-11-24] MEDS: FREE WATER G-TUBE SCH ×2 (12:00→18:00)
[2017-11-24] MEDS: TRIAMCINOLONE ACETONIDE 0.1% CREAM 15 GM TOPICAL SCH (23:42)
[2017-11-25] VITALS (18 sets, daily range): BP systolic 100–125; BP diastolic 60–81; PULSE 93–123; RESP 12–17; TEMP 99.7–101.3; O2SAT 100
[2017-11-25] MEDS: MORPHINE SULFATE 2 MG/ML INJ IV PUSH PRN (03:10)
[2017-11-25] MEDS: RESP: ALBUTEROL 2.5 MG/IPRATROPIUM 0.5 MG NEB (SCH) NEB ×3 (03:46→20:16)
[2017-11-25] MEDS: NOREPINEPHRINE INJ 4 MG in SODIUM CHLOR 0.9% 250 ML INJ 246 ML IV PRN ×3 (05:00→22:56)
[2017-11-25] MEDS: levETIRAcetam INJ 500 MG in SODIUM CHLORIDE 0.9% INJ 100 ML IV SCH ×2 (05:12→17:09)
[2017-11-25] MEDS: MORPHINE SULFATE ORAL SOLN 10 MG/0.5 ML SYRINGE PO SCH ×4 (05:13→17:10)
[2017-11-25] MEDS: ARTIFICIAL TEARS OPTH SOLN 15 ML BTL EACH EYE SCH ×3 (05:13→21:21)
[2017-11-25] MEDS: FREE WATER G-TUBE SCH ×3 (05:13→11:57)
--- NOTE | 2017-11-25 05:55 | RADRPT ---
EXAM DATE/TIME: 11/25/2017 03:37 [place] COMPARISON: CHEST SINGLE AP, November 23, 2017, 4:10. INDICATIONS : Respiratory failure. MEDICAL HISTORY : Cardiovascular disease. SURGICAL HISTORY : None. ENCOUNTER: Subsequent ACUITY: 1 week PAIN SCORE: Non-responsive. LOCATION: Bilateral chest FINDINGS: A single view of the chest demonstrates endotracheal tube in good position. Nasogastric tube enters s tomach. Right central line in superior vena cava. Bilateral mostly basilar airspace consolidation. No pneumothorax. CONCLUSION: 1. Support apparatus in good position. Basilar lung consolidation. No effusion or pneumothorax. Clay Lam MD on November 25, 2017 at 5:51 Board Certified Radiologist. This report was verified electronically.
[2017-11-25 06:04] LABS: AUTOMATED NEUTROPHIL # 11.2 TH/MM3 (1.8-7.7); BASOPHIL # 0.1 TH/MM3 (0-0.2); BASOPHIL % 0.7 % (0.0-2.0); EOSINOPHIL # 0.1 TH/MM3 (0-0.4); EOSINOPHIL % 0.9 % (0.0-4.0); HEMATOCRIT 28.2 % (35.0-46.0); HEMOGLOBIN 9.5 GM/DL (11.6-15.3); LYMPH % 15.8 % (9.0-44.0); LYMPHOCYTE # 2.3 TH/MM3 (1.0-4.8); MEAN CELL VOLUME 84.8 FL (80.0-100.0); MEAN CORPUSCULAR HEMOGLOBIN 28.5 PG (27.0-34.0); MEAN CORPUSCULAR HGB CONC 33.6 % (32.0-36.0); MEAN PLATELET VOLUME 9.1 FL (7.0-11.0); MONO % 6.3 % (0.0-8.0); MONOCYTE # 0.9 TH/MM3 (0-0.9); NEUT % 76.3 % (16.0-70.0); PLATELET COUNT 148 TH/MM3 (150-450); RED BLOOD COUNT 3.33 MIL/MM3 (4.00-5.30); RED CELL DISTRIBUTION WIDTH 15.7 % (11.6-17.2); WHITE BLOOD COUNT 14.6 TH/MM3 (4.0-11.0)
[2017-11-25 07:24] LABS: ALBUMIN 2.1 GM/DL (3.4-5.0); ALKALINE PHOSPHATASE 107 U/L (45-117); ALT (GPT) 50 U/L (10-53); AST (GOT) 56 U/L (15-37); BICARBONATE 24.4 MEQ/L (21.0-32.0); BLOOD UREA NITROGEN 15 MG/DL (7-18); CALCIUM 9.3 MG/DL (8.5-10.1); CHLORIDE 132 MEQ/L (98-107); CREATININE 0.84 MG/DL (0.50-1.00); GLOMERULAR FILTRATION RATE 68 ML/MIN (>89); GLUCOSE,RANDOM 155 MG/DL (74-106); MAGNESIUM 2.4 MG/DL (1.5-2.5); PHOSPHORUS 2.2 MG/DL (2.5-4.9); TOTAL BILIRUBIN ADULT 0.3 MG/DL (0.2-1.0); TOTAL PROTEIN 5.8 GM/DL (6.4-8.2)
[2017-11-25 07:41] LABS: SODIUM (NA) 163 MEQ/L (136-145)
[2017-11-25] MEDS: LANSOPRAZOLE SOLUTAB 30 MG TAB NG SCH (07:49)
[2017-11-25] MEDS: DOCUSATE SODIUM 100 MG/10 ML UDC PO SCH ×2 (07:49→21:20)
[2017-11-25] MEDS: SENNOSIDES SYRUP 8.8 MG/5 ML CUP NG SCH ×2 (07:49→21:21)
[2017-11-25] MEDS: cefTRIAXone INJ 1,000 MG in SODIUM CHLORIDE 0.9% INJ 100 ML IV SCH (08:00)
[2017-11-25] MEDS: ACETAMINOPHEN 1000 MG/100 ML 100 ML IV PRN (08:30)
[2017-11-25 09:00] LABS: LYMPHOCYTES 16 % (9-44); MONOCYTES 5 % (0-8); NEUTROPHIL # MANUAL DIFF 11.4 TH/MM3 (1.8-7.7); POLYS (SEG NEUTROPHILS) 78 % (16-70)
[2017-11-25] MEDS: SODIUM CHLORIDE 0.9% FLUSH 10 ML FLUSH IV FLUSH SCH ×2 (09:00→21:00)
[2017-11-25] MEDS: TRIAMCINOLONE ACETONIDE 0.1% CREAM 15 GM TOPICAL SCH ×2 (09:00→21:00)
--- NOTE | 2017-11-25 09:47 | HHI.NSPN ---
(Matthew Zamoralydia KEYS) History Chief Complaint: Unable to obtain due to patient's clinical conditon. (Matthew Zamoralydia KEYS) Interval History 62-year-old female admitted on 11/19/2017 after she presented to the emergency room with symptoms that seem to be related to morphine withdrawal with the shaking in her lower extremities along with the anxiety abdominal pain and nausea. She has an intrathecal pain pump placed to which the daughter states enters into the cervical and lumbar spine last year with a last pump refill with morphine 3 months ago. The pain specialist informed her that she could not refill the pump anymore since the MI was not authorizing this. She has a past medical history significant for chronic neck and back pain with history of cervical and lumbar spine surgeries, COPD, fibromyalgia, celiac disease and anxiety. She was admitted to [facility] for further evaluation where she became suddenly lethargic, aphasic and weak on the right side yesterday after the endoscopy for biliary obstruction. The CT of the head was done and shows large posterior parietal lobe hemorrhagic stroke with brain edema. She was transferred to the intensive care unit and intubated for an airway protection and started on hyperosmolar therapy. Neurosurgery has been consulted this morning for the cerebral hemorrhage. 11/22/17: Pt underwent a Left parietal craniotomy for intracerebral hematoma evacuation; Left frontal gt hole placement for ventriculostomy early this morning. Post op assessment done by me reveals she is sedated on Diprivan. Pupils are 3mm bilaterally, reactive bilaterally. Ventriculostomy drain in place at 10cm H20 without drainage or waveform and ICPs read 12. There is air in the line. 11/23/17: Waveform improved yesterday after flushing and again this morning was dampened with air in the ventriculostomy line. This was flushed again using sterile technique with betadine swab at the CSF port and a waveform returned and ICPs are 7. Pt is sedated and intubated. She opens her eyes. Not following commands. 11/24/17: Pt sedated on Diprivan, held and pt starting to open eyes and becomes agitated. Not following commands. Ventriculostomy in place at [id number], ICP 7. 11/25: The patient is intubated and on CPAP when seen. She is sedated with midazolam. She does move both lower extremities spontaneously but does not follow any commands. She does withdraw all extremities to noxious stimulation. The ventriculostomy is at 20 cm H2O pressure. She is also on a norepinephrine drip for blood pressure support. (Carlos Enrique Zamora) System Review Comments Unable to obtain due to patient's clinical conditon. (Carlos Enrique Zamora) Exam Results 11/23/17 11/23/17 11/24/17 11/24/17 11/25/17 11/25/17 06:00 18:00 06:00 18:00 06:00 18:00 Intake Total 2255 ml 1360 ml 3124 ml 1519 ml 787 ml Output Total 732 ml 1003 ml 700 ml 1643 ml 1650 ml Balance 1523 ml 357 ml 2424 ml -124 ml -863 ml Intake Oral 0 ml IV Total 2255 ml 1300 ml 2792 ml 650 ml Tube Feeding 212 ml 469 ml 387 ml Other 60 ml 120 ml 400 ml 400 ml Output Urine Total 725 ml 1000 ml 700 ml 1625 ml 1650 ml Gastric Drainage Total 0 ml Tube Feeding Residual Discard 0 ml 0 ml Drainage Total 7 ml 3 ml 18 ml 0 ml # Bowel Movements 1 1 1 0 0 Vital Signs Date Time Temp Pulse Resp B/P (MAP) Pulse Ox O2 Delivery O2 Flow Rate FiO2 11/25/17 08:07 100 40 11/25/17 08:00 40 11/25/17 08:00 100 11/25/17 08:00 101.1 108 14 105/62 (76) 100 11/25/17 06:00 104 11/25/17 05:00 104 110/70 11/25/17 04:00 40 11/25/17 04:00 111 11/25/17 04:00 99.7 98 12 125/81 (96) 100 11/25/17 03:38 100 40 11/25/17 02:00 93 11/25/17 00:02 100 40 11/25/17 00:00 40 11/25/17 00:00 96 11/25/17 00:00 100.2 96 12 100/60 (73) 100 11/24/18 22:00 94 2//18 20:40 93 106/70 2/9/18 20:14 100 40 2//18 20:00 96 2/18 20:00 100.2 96 11 111/69 (83) 100 218 20:00 40 2//18 18:50 96 100/60 2//18 18:00 97 119/71 2//18 17:00 105 117/68 218 16:20 40 218 16:15 101 112/60 2/18 16:02 100 40 2/18 16:00 99.7 93 11 112/60 (77) 100 11/24/17 16:00 93 218 15:30 98 112/71 218 13:35 94 101/61 218 13:00 94 103/56 2 12:00 99.7 102 11 107/58 (74) 100 2 12:00 102 2 11:20 100 40 218 11:15 109 93/55 2 11:00 109 86/50 218 10:45 109 91/61 2 09:00 40 11/24/17 08:59 40 2 08:54 100 40 218 08:00 101.1 105 14 128/73 (91) 100 11/24/17 08:00 105 11/24/17 08:00 40 11/24/17 07:00 97 99/61 218 06:33 14 218 06:00 102 218 06:00 96 100/60 218 04:20 100 40 218 04:00 100.0 114 14 124/73 (90) 100 2 04:00 40 11/24/17 04:00 114 218 03:48 117 121/74 218 03:47 109 121/74 218 02:00 87 2 01:06 100 40 218 00:00 40 2 00:00 85 2 00:00 100.8 85 28 103/54 (70) 100 2/8/18 22:11 109 131/67 2/06/02 22:00 93 2/18 21:00 78 85/52 218 20:09 100 40 2/18 20:00 100.8 78 14 107/59 (75) 100 2 20:00 40 18 20:00 78 2/06/02 18:00 91 11/23/17 16:00 40 11/23/17 16:00 100 2/18 16:00 100.4 100 14 107/67 (80) 100 11/23/17 15:42 100 40 11/23/17 14:00 84 11/23/17 13:25 97 109/66 11/23/17 12:00 94 /06/02 12:00 40 11/23/17 12:00 100.6 94 14 97/54 (68) 100 11/23/17 11:46 100 40 11/23/17 10:00 101 11/23/17 09:08 100 40 11/23/17 08:00 100.2 94 14 109/62 (78) 100 11/23/17 08:00 40 11/23/17 08:00 90 11/23/17 06:26 100 40 11/23/17 06:00 90 11/23/17 05:20 100 100 11/23/17 04:00 100.6 103 16 113/67 (82) 100 11/23/17 04:00 103 11/23/17 04:00 40 11/23/17 02:00 105 11/23/17 02:00 105 98/72 18 00:35 100 40 18 00:00 40 18 00:00 101.1 101 16 115/64 (81) 100 11/23/17 00:00 101 11/22/17 22:00 96 11/22/17 20:29 100 40 11/22/17 20:00 101.1 102 17 96/58 (71) 100 11/22/17 20:00 40 18 20:00 102 218 18:08 101 123/70 218 18:00 101 2/7/18 17:29 100 40 2/7/18 16:00 100.6 100 17 120/74 (89) 100 11/22/17 16:00 100 11/22/17 16:00 40 11/22/17 14:08 98 40 11/22/17 14:00 94 11/22/17 12:00 99.0 89 15 125/76 (92) 100 11/22/17 12:00 89 11/22/17 12:00 40 11/22/17 10:31 100 50 11/22/17 10:00 89 (Carlos Enrique Zamora) Physical Examination GENERAL: Intubated and on CPAP. Sedated on midazolam 4 mg/hr. No apparent distress. HEENT: Dry & intact dressing to scalp w/ventriculostomy drain in place. PERRLA 4 mm brisk. Orally intubated. OGT. MUSCULOSKELETAL: Moving BLE spontaneously. No evident clubbing or deformity. NEUROLOGICAL: Sedated with midazolam. No eye opening to voice or noxious stimulation. Does not follow commands. PERRLA 4 mm brisk. Moves BLE spontaneously. Withdraws all extremities to local noxious stimulation. Ventriculostomy at 20 cm H2O pressure with clear straw-coloured CSF draining, dampened waveform. ICP at 11 when seen. (Carlos Enrique Zamora) Medical Decision Making Impression and Plan Impression: Large left posterior temporal lobe prior low but occipital lobe hemorrhagic stroke with associated moderate mass effect and midline shift. The intracerebral hematoma measures approximately 80 ml. Chronic neck and back pain with intrathecal pump placement which was not refilled due to [facility] of [facility]. Likely is undergoing opiate withdrawal. Biliary obstruction with jaundice status post ERCP History of COPD Staph epidermidis bacteremia 2 with the urinary tract infection. Patient w/improved neuro exam, withdrawing all extremities to local noxious stimulation. Ventriculostomy output for the past 24 hours is 18 mL as of this morning. T max 101.1 this morning. Hypotensive yesterday morning. Plan: Continue with critical care. Continue to monitor neuro exam. Continue with ventriculostomy drainage and ICP management. Challenge ventriculostomy. Wean sedation as tolerated. Wean ventilator as tolerated. (Carlos Enrique Zamora) Attending Statement The exam, history, and the medical decision-making described in the above note were completed with the assistance of the mid-level provider. I reviewed and agree with the findings presented. I attest that I had a [id number] encounter with the patient on the same day, and personally performed and documented my assessment and findings in the medical record. On my examination to 2017 the patient has spontaneous right eye opening. She spontaneously moves the upper and lower extremities. Not following commands. Does not focus or follow with her eyes. Ventriculostomy functioning well with clear CSF output. ICP is 8 at the time of my examination. Stable neurologic exam. Continue EVD Family in room today during exam (Azar Ambriz MD) Carlos Enrique Zamora Nov 25, 2017 09:47 Azar Ambriz MD Nov 25, 2017 11:56
--- NOTE | 2017-11-25 13:12 | HHI.CCPN ---
Subjective Remarks/Hospital Course 62-year-old female with a past medical history significant for chronic pain with morphine pump, fibromyalgia, celiac disease and anxiety presented initially to the hospital for evaluation of leg spasms. The patient reports that she woke up approximately 1 AM and "could not control her legs." Her daughter gave her a 30 mg tablet of morphine to help with her symptoms yet they persisted. She was admitted to [facility] floor for further evaluation where she became suddenly lethargic and weak on the right side. The CT of the head was done immediately and shows large posterior parietal lobe hemorrhagic stroke with brain edema. She was immediately intubated for an airway protection and started on hyperosmolar therapy. 11/22: Patient underwent Left parietal craniotomy for intracerebral hematoma evacuation; Left frontal gt hole placement for ventriculostomy by Dr. Womack. Seen in the ICU immediately postop. Profoundly hypotensive systolic blood pressure initially in the 50s. Stat bolus of LR was ordered by anesthesia. Levophed increased to 12 mcg/min with improvement in systolic blood pressure to 110s. We will place arterial line. Currently patient is under the influence of anesthesia, not moving any extremities 11/23: T-max 101.1. Continues to be febrile. Placing NG tube and Julian catheter. Right upper extremity without movement. Withdraws right lower externally. Spontaneous movement to left upper and lower extremity. Starting on tube feeding. 11/24: Tmax 101.1. Currently. 2 bowel movement overnight. Urine with Escherichia coli/staph epi in blood. Potassium phosphorus been replaced. Hypertonic saline held due to sodium 160+. Very arousable off sedation with ICP is controlled. Subjective 11/25: Continues to spike intermittent fevers. Tolerating tube feeding at goal. With persistent fevers we will consult infectious disease. ICPs are well controlled. Sodium remains at 163. Objective Vital Signs Date Time Temp Pulse Resp B/P (MAP) Pulse Ox O2 Delivery O2 Flow Rate FiO2 11/25/17 12:10 100 40 11/25/17 10:00 98 11/25/17 08:00 101.1 14 105/62 (76) Intake and Output 11/25/17 11/25/17 11/26/17 08:00 16:00 00:00 Intake Total 787 ml 200 ml Output Total 1650 ml Balance -863 ml 200 ml Result Diagram: 11/25/17 0550 11/25/17 0550 Other Results Microbiology Date/Time Source Procedure Growth Status 11/22/17 10:25 Blood Peripheral Aerobic Blood Culture - Preliminary NO GROWTH IN 3 DAYS Resulted 11/22/17 10:25 Blood Peripheral Anaerobic Blood Culture - Preliminary NO GROWTH IN 3 DAYS Resulted 11/19/17 04:05 Urine Clean Catch Urine Culture - Final Escherichia Coli Complete Imaging Last Impressions Chest X-Ray 11/25/17 0600 Signed Impressions: Service Date/Time: Saturday, November 25, 2017 03:37 - CONCLUSION: 1. Support apparatus in good position. Basilar lung consolidation. No effusion or pneumothorax. Clay Lam MD Head CT 11/23/17 0600 Signed Impressions: Service Date/Time: November 05:09 - CONCLUSION: 1. Decreased left parietal region blood products following surgery. There is 7 mm of midline shift compared to 9 mm previously. 2. A left frontal ventricular catheter terminates in the midline and the lateral ventricles. The ventricles are normal in size. Jose Mccartney MD Abdomen/Pelvis CT 11/21/17 0000 Signed Impressions: Service Date/Time: Tuesday, November 21, 2017 21:37 - CONCLUSION: 1. No evidence to indicate pancreatitis. 2. Multiple stones in the gallbladder. 3. Multiple bilateral renal calculi.. 4. No significant changes compared to the prior exam. Meir Donnelly MD GI Procedure 11/20/17 0000 Signed Impressions: Service Date/Time: Monday, November 20, 2017 16:40 - CONCLUSION: ERCP as above. Jose Echevarria MD Objective Remarks GENERAL: 64-year-old female currently orotracheally intubated SKIN: Warm and dry. HEAD: Circumferential craniotomy dressing in place and left frontal EVD in place EYES: No scleral icterus. No injection or drainage. Pupils bilaterally 4 mm sluggish ENT: Orotracheally intubated NECK: Supple, trachea midline. No JVD or lymphadenopathy. Right IJ CVL is clean dry and intact CARDIOVASCULAR: Regular rate and rhythm without murmurs, gallops, or rubs. RESPIRATORY: Breath sounds equal bilaterally. No accessory muscle use. GASTROINTESTINAL: Abdomen soft, non-tender, nondistended. Subcutaneous morphine pump in the right upper quadrant without mottling MUSCULOSKELETAL: No cyanosis, or edema. NEURO EXAM: Patient is intubated under residual anesthesia which limits neuro exam. Pupils are 4 mm sluggish. No withdrawal in any extremities no movement right upper extremity. Withdraws to pain right lower extremity. Spontaneous moving left upper and lower extremity. Nods head to simple answers appropriately. 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 Womack. - Target CPP 60-70 Left ventric -18 cm clear. -10 cm H2O - 3% sodium chloride infusion, target Na 150-155 currently on hold is currently 159 - Received 1 g of levetiracetam. Currently at 500 mg IV every 12 -Propofol switched to midazolam drip titrated to rest -2 ventilator synchrony ICPs currently 4 Holding buspirone 30 mg twice daily and venlafaxine 50 mg twice daily for depression/anxiety. Resume when clinically indicated Holding acetaminophen/hydrocodone 325/7.51 tab every 6 hours as needed pain Holding scheduled morphine sulfate 30 mg every 12 hours Morphine liquid 5 mg every 6 hours scheduled with 1-2 mg every 3 hours as needed pain 1 through 10 Acetaminophen as needed for fever RESP: Acute respiratory failure Ongoing tobaccoism COPD - Intubated for an airway protection ACV 14/550/5/40 Ventilator bundle Albuterol/ipratropium aerosols every 6 hours with albuterol aerosols every 2 hours as needed dyspnea Tobacco cessation booklet provided with appropriate CVS: Hypotension/shock Mild lactic acidosis History of hypertension - Use norepinephrine currently at 8 mcg/min to target map above 65 CPP 60-70 - 3% saline currently on hold with sodium currently 162 - Hold metoprolol and lisinopril while on vasopressors GI: Acute pancreatitis Opioid-induced constipation Cholelithiasis History of celiac disease 11/21/17 s/p ERCP with sphincterotomy and balloon extraction, finding choledocholithiasis. AST worsened today, mild increase 0.8. tumor markers WNL. lipase WNL. WBC significant increase today, appears diaphoretic. tachycardic. GI signed off Continue tube feedings with vital 1.5 goal 50 cc an hour Lansoprazole 30 mg daily for GI prophylaxis. Continue docusate sodium 100 mg twice daily and senna 8.6 mg twice daily. Patient is on polyethylene glycol 17 g twice daily at home for constipation : Julian catheter for accurate I's and O's in a critically ill patient FEN/RENAL: Acute kidney insufficiency Nephrolithiasis Hypokalemia Hypophosphatemia Hypernatremia - Monitor renal function closely, maintain Julian Free water 250 cc every 6 hours 30 mmol K-Phos IV 1. Recheck in AM ID: E. coli UTI Coag negative staph bacteremia - Continue ceftriaxone n for UTI - Repeat blood cultures, vancomycin 1 g 1 11/24 Pertinent cultures 11/19 -UA -pansensitive E. coli 11/20 -blood cultures 2 -coag negative staph/staph epi pansensitive 11/22 -blood cultures 2 -no growth to date blood culture 11/24 pending With persistent fevers consult infectious disease for further antibiotic coverage HEME: Leukocytosis Normocytic anemia Thrombocytopenia Sickle cell trait? - Leukocytosis most likely stress related - Monitor CBC daily. Follow trend DVT GI prophylaxis - Teds SCDs - No pharmacological DVT prophylaxis due to acute ICH - Iansoprazole 30 mg by tube daily Critical Care: The total critical care time was 35 minutes. Time to perform other separately billable procedures was not included in the critical care time. Rafael Saldana MD Nov 25, 2017 13:12
[2017-11-25] MEDS ORDERED: POTASSIUM PHOSPHATE INJ 30 MMOL in SODIUM CHLOR 0.9% 250 ML INJ 250 ML IV ONE (15:00)
--- NOTE | 2017-11-25 16:02 | PD.ID.CON ---
History of Present Illness Service ID Consult Requested By Dr.Louis Saldana Reason for Consult Evaluation and Mment of persistent fevers in a patient with stroke s.p neurosurgery. Primary Care Physician [facility] Diagnoses: History of Present Illness is a 62 y/o CF with PMHx of chronic neck and back pain who is on a morphine intrathecal pump ([facility] is pain medicine provider). Reportedly last refill for pump was 3 months prior to this admission. With this back ground patient presented to the ED with symptoms reportedly thought to be due to morphine withdrawal with shaking limbs, anxiety, abdominal pain and nausea. The pain specialist informed her that she could not refill the pump anymore since the [place] was not authorizing this. She has a past medical history significant for chronic neck and back pain with history of cervical and lumbar spine surgeries, COPD, fibromyalgia, celiac disease and anxiety. She was admitted to [facility] for further evaluation where she became suddenly lethargic, aphasic and weak on the right side on 11/20/2017 after the endoscopy for biliary obstruction. ERCP was done for biliary pancreatitis and sphinceterotomy and balloon extraction performed. The CT of the head was done and shows large posterior parietal lobe hemorrhagic stroke with brain edema. She was transferred to the intensive care unit and intubated for an airway protection and started on hyperosmolar therapy. Neurosurgery has been consulted this morning for the cerebral hemorrhage. She was intubated and underwent CL and arterial line placement. On Nov 22, 2017 patient underwent Left parietal craniotomy for intracerebral hematoma evacuation; Left frontal gt hole placement for ventriculostomy; microsurgical technique. Patient has been spiking fevers since 11/22/2017. Urine culture grew E.coli and patient has been treated for possible UTI with ceftriaxone. Patient is on prophylactic Keppra. Patient has had blood cultures that are growing 2 different species of Staph in 2 out of 4 bottles. Repeat blood cultures with no growth thereafter. ID is consulted for evaluation and mment of persistent fevers in a neurosurgery patient. At the time of my evaluation, patient is in the ISC unit. On Levophed 8 mics, UO ok. Not much oral secretions. Remains intubated. Opens eyes spontaneously. No tracking for me. Moves all 4 limbs although right arm is sluggish and she only wiggles her fingers. No rash. No diarrhea. Clinically stable and appears to be getting off pressors. No reported seizures. She has an ICP monitor in place with pressures in acceptable range. Review of Systems ROS Limitations: Intubated, Altered Mental Status Past Family Social History Allergies: Coded Allergies: bupropion (Unverified Allergy, Severe, 05/30/17) diclofenac (Unverified Allergy, Severe, ULCER HX, 05/30/17) erythromycin base (Unverified Allergy, Severe, 05/30/17) etodolac (Unverified Allergy, Severe, ULCER HX, 05/30/17) flurbiprofen (Unverified Allergy, Severe, ULCER HX, 05/30/17) gabapentin (Unverified Allergy, Severe, 05/30/17) gluten (Unverified Allergy, Severe, BLOATING, 05/30/17) ibuprofen (Unverified Allergy, Severe, ULCER HX, 05/30/17) indomethacin (Unverified Allergy, Severe, ULCER HX, 05/30/17) ketoprofen (Unverified Allergy, Severe, ULCER HX, 05/30/17) ketorolac (Unverified Allergy, Severe, ULCER HX, 05/30/17) naproxen (Unverified Allergy, Severe, ULCER HX, 05/30/17) oxaprozin (Unverified Allergy, Severe, ULCER HX, 05/30/17) penicillin G (Unverified Allergy, Severe, 05/30/17) sulfamethoxazole (Unverified Allergy, Severe, 05/30/17) topiramate (Unverified Allergy, Severe, 05/30/17) trimethoprim (Unverified Allergy, Severe, 05/30/17) Past Medical History Celiac disease Fibromyalgia Chronic pain Anxiety Past Surgical History Fusion C4-C5 Morphine pump placement Reported Medications Reported Meds & Active Scripts Active Reported Effexor (Venlafaxine HCl) 50 Mg Tab 50 Mg PO Q12H Polyethylene Glycol 3350 Powder (Polyethylene Glycol) 17 Gram Pow 17 Gm PO DAILY Pantoprazole (Pantoprazole Sodium) 40 Mg Tab 40 Mg PO DAILY Morphabond ER 12 HR (Morphine Sulfate) 30 Mg Tab 30 Mg PO Q12H Hydrocodone-Acetaminophen 7.5 Mg-325 Mg Tab 1 Tab PO Q6H PRN Buspirone (Buspirone HCl) 30 Mg Tab 30 Mg PO BID Proair Hfa 8.5 GM Inh (Albuterol Sulfate) 90 Mcg/Act Aer 2 Puff INH Q6H PRN 108 mcg/actuation Fioricet (Vnqjrndure-Yuwafhdbmrrxc-Wephbmol) 50-300-40 Mg Cap 1 Cap PO Q4H PRN Active Ordered Medications Current Medications Medications (Trade) Dose Ordered Sig/Rachel Route Start Time Stop Time Status Last Admin (NS Flush) 2 ml UNSCH PRN IV FLUSH 11/19/17 04:45 (NS Flush) 2 ml BID IV FLUSH 11/19/17 09:00 11/24/17 20:36 (Zofran Inj) 4 mg Q6H PRN IVP 11/19/17 04:45 (Narcan Inj) 0.4 mg UNSCH PRN IV PUSH 11/19/17 04:45 Ceftriaxone Sodium 1000 mg/ Sodium Chloride 100 ml @ 200 mls/hr Q24H IV 11/19/17 08:00 11/25/17 08:00 (Buspar) 30 mg BID PO 11/20/17 09:00 Future Hold 11/21/17 20:28 (Fioricet 325-50-40) 1 tab Q4H PRN PO 11/20/17 05:30 11/20/17 20:33 (Vasotec Inj) 1.25 mg Q6H PRN IV PUSH 11/20/17 10:00 (Aristocort 0.1% Cream) 1 applic BID TOPICAL 11/21/17 12:00 11/25/17 09:00 (Prinivil) 20 mg DAILY PO 11/22/17 09:00 Future Hold (Lopressor) 12.5 mg Q12HR PO 11/21/17 10:00 Future Hold 11/21/17 20:32 Nicardipine HCl 25 mg/Sodium Chloride 250 ml @ 50 mls/hr TITRATE PRN IV 11/21/17 22:15 Acetaminophen 100 ml @ 400 mls/hr Q6H PRN IV 11/22/17 00:45 11/25/17 08:30 Propofol 100 ml @ 2.265 mls/ hr TITRATE PRN IV 11/22/17 00:45 11/24/17 05:03 Sodium Chloride 500 ml @ 30 mls/hr Q16H IV 11/22/17 03:00 Future Hold 11/22/17 18:09 (Brethine Inj) 1 mg UNSCH PRN SQ 2/7/18 07:30 Levetriacetam 500 mg/Sodium Chloride 105 ml @ 420 mls/hr Q12H IV 11/22/17 17:00 11/25/17 05:12 (Colace Liq) 100 mg Q12HR PO 11/22/17 09:00 11/25/17 07:49 Norepinephrine Bitartrate 4 mg/ Sodium Chloride 250 ml @ 7.5 mls/hr TITRATE PRN IV 11/22/17 17:45 11/25/17 14:14 (Brethine Inj) 1 mg UNSCH PRN SQ 11/22/17 17:45 Phenylephrine HCl 80 mg/Sodium Chloride 500 ml @ 15 mls/hr TITRATE PRN IV 11/22/17 20:45 (Morphine Inj) 2 mg Q3H PRN IV PUSH 11/23/17 10:30 11/25/17 03:10 (Morphine Inj) 4 mg Q3H PRN IV PUSH 11/23/17 10:30 11/24/17 08:44 (Senna Liq) 8.8 mg BID NG 11/23/17 21:00 11/25/17 07:49 (Duoneb Neb) 1 ampule Q6HR NEB NEB 11/23/17 16:00 11/25/17 16:08 (Albuterol Neb) 2.5 mg Q2HR NEB PRN NEB 11/23/17 16:00 (Prevacid Odt) 30 mg DAILY NG 11/24/17 09:00 11/25/17 07:49 (Tears Naturale Opth Soln) 1 drop Q8HR EACH EYE 11/23/17 22:00 11/25/17 05:13 (Roxanol Liq) 5 mg Q6HR PO 11/23/17 18:00 11/25/17 12:34 Midazolam HCl 100 ml @ 2 mls/hr TITRATE PRN IV 11/24/17 11:00 11/24/17 11:10 (Free Water) VOLUME: 250 ML Q6HR G-TUBE 11/24/17 18:00 11/25/17 17:59 11/25/17 11:57 Potassium Phosphate 30 mmol/ Sodium Chloride 260 ml @ 43.333 mls/ hr ONCE ONCE IV 11/25/17 15:00 11/25/17 20:59 11/25/17 14:14 Family History Per review of GI note: Both parents with coronary artery disease. Negative for Colon cancer or pancreatic cancer. Social History Smokes approximately one pack per day. Remote history of alcohol. Denies illicit drugs. Physical Exam Vital Signs Vital Signs Date Time Temp Pulse Resp B/P (MAP) Pulse Ox O2 Delivery O2 Flow Rate FiO2 11/25/17 14:14 89 95/56 11/25/17 12:10 100 40 11/25/17 10:00 98 11/25/17 08:07 100 40 11/25/17 08:00 40 11/25/17 08:00 100 11/25/17 08:00 101.1 108 14 105/62 (76) 100 11/25/17 06:00 104 11/25/17 05:00 104 110/70 11/25/17 04:00 40 11/25/17 04:00 111 11/25/17 04:00 99.7 98 12 125/81 (96) 100 11/25/17 03:38 100 40 11/25/17 02:00 93 11/25/17 00:02 100 40 11/25/17 00:00 40 11/25/17 00:00 96 11/25/17 00:00 100.2 96 12 100/60 (73) 100 11/24/17 22:00 94 11/24/17 20:40 93 106/70 11/24/17 20:14 100 40 11/24/17 20:00 96 11/24/17 20:00 100.2 96 11 111/69 (83) 100 11/24/17 20:00 40 11/24/17 18:50 96 100/60 11/24/17 18:00 97 119/71 11/24/17 17:00 105 117/68 11/24/17 16:20 40 11/24/17 16:15 101 112/60 Physical Exam GENERAL: This is a well-nourished, well-developed patient, in no apparent distress. SKIN: No rash. HEAD: ICP monitor and head dressing in place. EYES: Pupils equal round and reactive. No scleral icterus. No injection or drainage. ENT: Intubated. NECK: difficult to assess. CARDIOVASCULAR: HS audible. RESPIRATORY: Clear to auscultation. Breath sounds equal bilaterally. No wheezes , rales, or rhonchi. GASTROINTESTINAL: Abdomen soft, non-tender, nondistended. Pain pump site palpable with no tenderness and no superficial signs of infection. MUSCULOSKELETAL: Extremities without clubbing, cyanosis, or edema. NEUROLOGICAL: Opens eyes spontaneously. Moves LUE, LLE, RLE. RUE with some movts at finger level. Psych could not be assessed. IV line sites with no e.o infection. Laboratory Laboratory Tests Test 11/24/17 17:42 11/25/17 00:30 11/25/17 05:50 Sodium Level 163 162 163 Serum Osmolality 340 338 338 White Blood Count 14.6 Red Blood Count 3.33 Hemoglobin 9.5 Hematocrit 28.2 Mean Corpuscular Volume 84.8 Mean Corpuscular Hemoglobin 28.5 Mean Corpuscular Hemoglobin Concent 33.6 Red Cell Distribution Width 15.7 Platelet Count 148 Mean Platelet Volume 9.1 Neutrophils (%) (Auto) 76.3 Lymphocytes (%) (Auto) 15.8 Monocytes (%) (Auto) 6.3 Eosinophils (%) (Auto) 0.9 Basophils (%) (Auto) 0.7 Neutrophils # (Auto) 11.2 Lymphocytes # (Auto) 2.3 Monocytes # (Auto) 0.9 Eosinophils # (Auto) 0.1 Basophils # (Auto) 0.1 CBC Comment AUTO DIFF Differential Total Cells Counted 100 Neutrophils % (Manual) 78 Lymphocytes % 16 Monocytes % 5 Eosinophils % 1 Neutrophils # (Manual) 11.4 Differential Comment FINAL DIFF MANUAL Atypical Lymphocytes Platelet Estimate LOW Platelet Morphology Comment NORMAL Red Cell Morphology Comment NORMAL Blood Urea Nitrogen 15 Creatinine 0.84 Random Glucose 155 Total Protein 5.8 Albumin 2.1 Calcium Level 9.3 Phosphorus Level 2.2 Magnesium Level 2.4 Alkaline Phosphatase 107 Aspartate Amino Transf (AST/SGOT) 56 Alanine Aminotransferase (ALT/SGPT) 50 Total Bilirubin 0.3 Potassium Level 3.4 Chloride Level 132 Carbon Dioxide Level 24.4 Anion Gap 7 Estimat Glomerular Filtration Rate 68 Date/Time Source Procedure Growth Status 11/22/17 10:25 Blood Peripheral Aerobic Blood Culture - Preliminary NO GROWTH IN 3 DAYS Resulted 11/22/17 10:25 Blood Peripheral Anaerobic Blood Culture - Preliminary NO GROWTH IN 3 DAYS Resulted 11/19/17 04:05 Urine Clean Catch Urine Culture - Final Escherichia Coli Complete Result Diagram: 11/25/17 0550 11/25/17 0550 Imaging Last Impressions Chest X-Ray 11/25/17 0600 Signed Impressions: Service Date/Time: Saturday, November 25, 2017 03:37 - CONCLUSION: 1. Support apparatus in good position. Basilar lung consolidation. No effusion or pneumothorax. Clay Lam MD Head CT 11/23/17 0600 Signed Impressions: Service Date/Time: November 05:09 - CONCLUSION: 1. Decreased left parietal region blood products following surgery. There is 7 mm of midline shift compared to 9 mm previously. 2. A left frontal ventricular catheter terminates in the midline and the lateral ventricles. The ventricles are normal in size. Jose Mccartney MD Abdomen/Pelvis CT 11/21/17 0000 Signed Impressions: Service Date/Time: Tuesday, November 21, 2017 21:37 - CONCLUSION: 1. No evidence to indicate pancreatitis. 2. Multiple stones in the gallbladder. 3. Multiple bilateral renal calculi.. 4. No significant changes compared to the prior exam. Meir Donnelly MD GI Procedure 11/20/17 0000 Signed Impressions: Service Date/Time: Monday, November 20, 2017 16:40 - CONCLUSION: ERCP as above. Jose Echevarria MD Assessment and Plan Assessment and Plan Fever, tachycardia, Elevated WBC: SIRS possible sepsis. Source: Pneumonia possible given basilar infiltrates on CXR. Fever persistent: infection, non infectious causes (DVT, Keppra) Staph epi bacteremia likely contaminant. Stroke s.p Left parietal craniotomy for intracerebral hematoma evacuation; Left frontal gt hole placement for ventriculostomy; microsurgical technique (2017) Chronic neck and back pain h/o fusion Intra thecal pump presence. On vent Encephalopathy: stroke, infection. Recs: Continue Ceftriaxone IV If any change in clinical condition overnight change to Cefepime plus vanco plus flagyl combo +/- Micafungin. Check Procalcitonin Check Blood cultures (line and periphery) CXR reviewed with basilar infiltrates. Check UA and Doppler UE and LE. If workup negative and fevers persist may have to omar Mckinney if CSF can be sent for micro studies and chemistry. Follow cultures Follow clinically. omar RN No family in room. Argelia Coleman MD Nov 25, 2017 16:02
[2017-11-25 17:06] LABS: BACTERIA, URINE RARE /hpf; BILIRUBIN, URINE NEG (NEG); BLOOD, URINE SMALL (NEG); GLUCOSE,URINE NEG (NEG); KETONE, URINE NEG (NEG); MUCUS URINE MOD /lpf (OCC); NITRITE,URINE NEG (NEG); SQUAMOUS EPITHELIAL CELL URINE <1 /hpf (0-5); URINE COLOR YELLOW (YELLW/STRAW); URINE LEUKOCYTE ESTERASE TRACE (NEG)
[2017-11-25] MEDS: MIDAZOLAM 100 MG/100 ML INJ 100 ML IV PRN (17:20)
--- NOTE | 2017-11-25 19:45 | RADRPT ---
EXAM DATE/TIME: 11/25/2017 17:50 [facility] COMPARISON: No previous studies available for comparison. INDICATIONS : Bilateral leg swelling. MEDICAL HISTORY : Hypercholesterolemia. Chronic obstructive pulmonary disease. Gastroesophageal reflux disease. Hearing aids. Neck pain. Tremors. Dyspnea. Celiac disease. Gallstones. Ulcer. Kidney stones. Dysuria. Fibrom yalgia. Arthritis. Anxiety. Sickle cell trait. SURGICAL HISTORY : Tubal ligation. Cervical fusion. Cardiac catheterization. ENCOUNTER: Initial ACUITY: 1 day PAIN SCORE: Non-responsive LOCATION: Bilateral legs. TECHNIQUE: Venous ultrasound of the left and right leg was performed from the inguinal ligament to the proximal calf. Real-time, color Doppler and spectral tracing, compression and augmentation techniques were us ed. FINDINGS: RIGHT LEG: There is normal compressibility of the deep venous system from the inguinal region to the proximal ca lf. No echogenic clot is seen in the lumen of the common femoral, femoral, popliteal, and posterior tibial veins. There is a normal response of the venous system to proximal and distal augmentation an d respiration. LEFT LEG: There is normal compressibility of the deep venous system from the inguinal region to the proximal ca lf. No echogenic clot is seen in the lumen of the common femoral, femoral, popliteal, and posterior tibial veins. There is a normal response of the venous system to proximal and distal augmentation an d respiration. CONCLUSION: Negative for deep venous thrombosis bilateral lower extremity. Anurag Carrion MD on November 25, 2017 at 19:42 Board Certified Radiologist. This report was verified electronically.
--- NOTE | 2017-11-25 20:54 | RADRPT ---
EXAM DATE/TIME: 11/25/2017 18:56 [facility] COMPARISON: No previous studies available for comparison. INDICATIONS : Bilateral arm swelling. MEDICAL HISTORY : Hypercholesterolemia. Chronic obstructive pulmonary disease. Gastroesophageal reflux disease. Hearing aids. Neck pain. Tremors. Dyspnea. Celiac disease. Gallstones. Ulcer. Kidney stones. Dysuria. Fibrom yalgia. Arthritis. Anxiety. Sickle cell trait. SURGICAL HISTORY : Tubal ligation. Cervical fusion. Cardiac catheterization. ENCOUNTER: Initial ACUITY: 1 day PAIN SCORE: Non-responsive LOCATION: Bilateral arms. FINDINGS: RIGHT UPPER EXTREMITY: Abnormal. Echogenic thrombus is seen within the subclavian, axillary, brachial veins with absent estela w in color Doppler.. LEFT UPPER EXTREMITY: Abnormal. Echogenic thrombus is seen in the cephalic vein. There is absent flow in the brachial vei n. Flow is seen in the subclavian and axillary veins. CONCLUSION: Positive for deep venous thrombosis bilateral extremities, right worse than left. Anurag Carrion MD on November 25, 2017 at 20:49 Board Certified Radiologist. This report was verified electronically.
[2017-11-26] VITALS (18 sets, daily range): BP systolic 93–119; BP diastolic 52–63; PULSE 100–125; RESP 14–16; TEMP 100.9–101.8; O2SAT 100
[2017-11-26] MEDS: MORPHINE SULFATE ORAL SOLN 10 MG/0.5 ML SYRINGE PO SCH ×5 (01:08→23:59)
[2017-11-26] MEDS: RESP: ALBUTEROL 2.5 MG/IPRATROPIUM 0.5 MG NEB (SCH) NEB ×4 (03:23→21:03)
[2017-11-26] MEDS: ACETAMINOPHEN 1000 MG/100 ML 100 ML IV PRN ×2 (04:06→17:13)
[2017-11-26] MEDS: levETIRAcetam INJ 500 MG in SODIUM CHLORIDE 0.9% INJ 100 ML IV SCH ×2 (05:16→17:12)
[2017-11-26] MEDS: ARTIFICIAL TEARS OPTH SOLN 15 ML BTL EACH EYE SCH ×3 (06:00→22:05)
[2017-11-26] MEDS: NOREPINEPHRINE INJ 4 MG in SODIUM CHLOR 0.9% 250 ML INJ 246 ML IV PRN (06:47)
--- NOTE | 2017-11-26 06:57 | RADRPT ---
EXAM DATE/TIME: 11/26/2017 04:57 [place] COMPARISON: CHEST SINGLE AP, November 25, 2017, 3:37. INDICATIONS : Fever. MEDICAL HISTORY : None. SURGICAL HISTORY : None. ENCOUNTER: Subsequent ACUITY: 3 days PAIN SCORE: Non-responsive. LOCATION: Bilateral chest FINDINGS: A single view of the chest demonstrates an endotracheal tube in good position. Right central line in right atrium. Bilateral mostly basilar airspace disease similar to November 25. No pneumothorax. NG t ip in distal esophagus. CONCLUSION: 1. Mild basilar airspace disease similar to November 25. NG tip in distal esophagus, partially withdr awn since prior exam. Clay Lam MD on November 26, 2017 at 6:52 Board Certified Radiologist. This report was verified electronically.
[2017-11-26 07:17] LABS: AUTOMATED NEUTROPHIL # 9.6 TH/MM3 (1.8-7.7); BASOPHIL % 0.2 % (0.0-2.0); EOSINOPHIL # 0.3 TH/MM3 (0-0.4); HEMATOCRIT 26.7 % (35.0-46.0); HEMOGLOBIN 8.7 GM/DL (11.6-15.3); LYMPH % 18.2 % (9.0-44.0); LYMPHOCYTE # 2.4 TH/MM3 (1.0-4.8); MEAN CELL VOLUME 85.8 FL (80.0-100.0); MEAN CORPUSCULAR HEMOGLOBIN 27.8 PG (27.0-34.0); MEAN CORPUSCULAR HGB CONC 32.5 % (32.0-36.0); MONO % 7.7 % (0.0-8.0); NEUT % 71.9 % (16.0-70.0); PLATELET COUNT 166 TH/MM3 (150-450); RED BLOOD COUNT 3.12 MIL/MM3 (4.00-5.30); RED CELL DISTRIBUTION WIDTH 15.9 % (11.6-17.2); WHITE BLOOD COUNT 13.3 TH/MM3 (4.0-11.0)
[2017-11-26 07:41] LABS: ALBUMIN 1.9 GM/DL (3.4-5.0); ALT (GPT) 51 U/L (10-53); AST (GOT) 52 U/L (15-37); BICARBONATE 29.5 MEQ/L (21.0-32.0); BLOOD UREA NITROGEN 20 MG/DL (7-18); CALCIUM 9.7 MG/DL (8.5-10.1); CHLORIDE 130 MEQ/L (98-107); CREATININE 0.93 MG/DL (0.50-1.00); GLOMERULAR FILTRATION RATE 61 ML/MIN (>89); GLUCOSE,RANDOM 139 MG/DL (74-106); MAGNESIUM 2.6 MG/DL (1.5-2.5)
[2017-11-26 07:49] LABS: SODIUM (NA) 163 MEQ/L (136-145)
[2017-11-26 07:52] LABS: ALKALINE PHOSPHATASE 99 U/L (45-117); PHOSPHORUS 2.7 MG/DL (2.5-4.9); TOTAL BILIRUBIN ADULT 0.3 MG/DL (0.2-1.0); TOTAL PROTEIN 5.6 GM/DL (6.4-8.2)
[2017-11-26] MEDS: SODIUM CHLORIDE 0.9% FLUSH 10 ML FLUSH IV FLUSH SCH ×2 (09:12→20:53)
[2017-11-26] MEDS: DOCUSATE SODIUM 100 MG/10 ML UDC PO SCH ×2 (09:12→20:53)
[2017-11-26] MEDS: LANSOPRAZOLE SOLUTAB 30 MG TAB NG SCH (09:12)
[2017-11-26] MEDS: cefTRIAXone INJ 1,000 MG in SODIUM CHLORIDE 0.9% INJ 100 ML IV SCH (09:12)
[2017-11-26] MEDS: SENNOSIDES SYRUP 8.8 MG/5 ML CUP NG SCH ×2 (09:12→20:52)
[2017-11-26] MEDS: TRIAMCINOLONE ACETONIDE 0.1% CREAM 15 GM TOPICAL SCH ×2 (09:13→20:53)
--- NOTE | 2017-11-26 10:23 | HHI.NSPN ---
(Matthew Zamoralydia KEYS) History Chief Complaint: Unable to obtain due to patient's clinical conditon. (Matthew Zamoralydia KEYS) Interval History 62-year-old female admitted on 11/19/2017 after she presented to the emergency room with symptoms that seem to be related to morphine withdrawal with the shaking in her lower extremities along with the anxiety abdominal pain and nausea. She has an intrathecal pain pump placed to which the daughter states enters into the cervical and lumbar spine last year with a last pump refill with morphine 3 months ago. The pain specialist informed her that she could not refill the pump anymore since the [place] was not authorizing this. She has a past medical history significant for chronic neck and back pain with history of cervical and lumbar spine surgeries, COPD, fibromyalgia, celiac disease and anxiety. She was admitted to [facility] for further evaluation where she became suddenly lethargic, aphasic and weak on the right side yesterday after the endoscopy for biliary obstruction. The CT of the head was done and shows large posterior parietal lobe hemorrhagic stroke with brain edema. She was transferred to the intensive care unit and intubated for an airway protection and started on hyperosmolar therapy. Neurosurgery has been consulted this morning for the cerebral hemorrhage. 11/22/17: Pt underwent a Left parietal craniotomy for intracerebral hematoma evacuation; Left frontal gt hole placement for ventriculostomy early this morning. Post op assessment done by me reveals she is sedated on Diprivan. Pupils are 3mm bilaterally, reactive bilaterally. Ventriculostomy drain in place at 10cm H20 without drainage or waveform and ICPs read 12. There is air in the line. 11/23/17: Waveform improved yesterday after flushing and again this morning was dampened with air in the ventriculostomy line. This was flushed again using sterile technique with betadine swab at the CSF port and a waveform returned and ICPs are 7. Pt is sedated and intubated. She opens her eyes. Not following commands. 11/24/17: Pt sedated on Diprivan, held and pt starting to open eyes and becomes agitated. Not following commands. Ventriculostomy in place at [id number], ICP 7. 11/25: The patient is intubated and on CPAP when seen. She is sedated with midazolam. She does move both lower extremities spontaneously but does not follow any commands. She does withdraw all extremities to noxious stimulation. The ventriculostomy is at 20 cm H2O pressure. She is also on a norepinephrine drip for blood pressure support. 11/26: This morning the patient is awake. She is spontaneously moving the left side extremities. She continues to be intubated and mechanically ventilated. She does have midazolam infusing for sedation. She did follow the command of her daughter to move the left lower extremity. She only moved the left side extremities to local noxious stimulation. Her ICP was 15 when seen and the ventriculostomy was at 10 cm H2O pressure. Nursing questioned at what level the ventriculostomy is to be at, reporting that the orders say 20 cm but was told in report that it was to be at 10. (Carlos Enrique Zamora) System Review Comments Unable to obtain due to patient's clinical conditon. (Carlos Enrique Zamora) Exam Results 11/24/17 11/24/17 11/25/17 11/25/17 11/26/17 11/26/17 06:00 18:00 06:00 18:00 06:00 18:00 Intake Total 3124 ml 1519 ml 787 ml 1190 ml 1150 ml Output Total 700 ml 1643 ml 1650 ml 1400 ml 2020 ml Balance 2424 ml -124 ml -863 ml -210 ml -870 ml Intake Oral 0 ml 0 ml IV Total 2792 ml 650 ml 200 ml 615 ml Tube Feeding 212 ml 469 ml 387 ml 990 ml 535 ml Other 120 ml 400 ml 400 ml Output Urine Total 700 ml 1625 ml 1650 ml 1400 ml 2000 ml Gastric Drainage Total 0 ml Tube Feeding Residual Discard 0 ml 0 ml Drainage Total 18 ml 0 ml 20 ml # Bowel Movements 1 0 0 0 Vital Signs Date Time Temp Pulse Resp B/P (MAP) Pulse Ox O2 Delivery O2 Flow Rate FiO2 11/26/17 08:00 100 11/26/17 08:00 40 11/26/17 08:00 100.9 108 14 119/63 (81) 100 11/26/17 07:37 100 40 11/26/17 06:47 105 114/60 11/26/17 06:00 104 11/26/17 04:05 100 40 11/26/17 04:00 101.8 120 14 100 11/26/17 04:00 40 11/26/17 04:00 120 11/26/17 02:00 110 11/26/17 01:05 100 40 11/26/17 00:00 40 11/26/17 00:00 101.3 118 14 100 11/26/17 00:00 118 11/25/17 22:56 116 131/63 11/25/17 22:00 114 11/25/17 20:17 100 40 11/25/17 20:00 112 11/25/17 20:00 101.3 112 14 11/25/17 20:00 40 11/25/17 18:00 122 11/25/17 16:09 100 40 11/25/17 16:00 122 11/25/17 16:00 40 11/25/17 16:00 117 11/25/17 16:00 101.0 123 17 116/64 (81) 11/25/17 14:14 89 95/56 11/25/17 14:00 99 11/25/17 12:10 100 40 11/25/17 12:00 40 11/25/17 12:00 101.0 94 12 113/66 (82) 100 11/25/17 12:00 105 11/25/17 10:00 98 11/25/17 08:07 100 40 11/25/17 08:00 40 11/25/17 08:00 100 11/25/17 08:00 101.1 108 14 105/62 (76) 100 11/25/17 06:00 104 11/25/17 05:00 104 110/70 11/25/17 04:00 40 11/25/17 04:00 111 11/25/17 04:00 99.7 98 12 125/81 (96) 100 11/25/17 03:38 100 40 11/25/17 02:00 93 11/25/17 00:02 100 40 11/25/17 00:00 40 11/25/17 00:00 96 11/25/17 00:00 100.2 96 12 100/60 (73) 100 11/24/17 22:00 94 2/9/18 20:40 93 106/70 218 20:14 100 40 218 20:00 96 2 20:00 100.2 96 11 111/69 (83) 100 11/24/17 20:00 40 218 18:50 96 100/60 2/18 18:00 97 119/71 218 17:00 105 117/68 18 16:20 40 11/24/17 16:15 101 112/60 218 16:02 100 40 11/24/17 16:00 99.7 93 11 112/60 (77) 100 11/24/17 16:00 93 11/24/17 15:30 98 112/71 11/24/17 13:35 94 101/61 11/24/17 13:00 94 103/56 11/24/17 12:00 99.7 102 11 107/58 (74) 100 11/24/17 12:00 102 11/24/17 11:20 100 40 11/24/17 11:15 109 93/55 11/24/17 11:00 109 86/50 11/24/17 10:45 109 91/61 11/24/17 09:00 40 11/24/17 08:59 40 11/24/17 08:54 100 40 11/24/17 08:00 101.1 105 14 128/73 (91) 100 11/24/17 08:00 105 11/24/17 08:00 40 11/24/17 07:00 97 99/61 11/24/17 06:33 14 11/24/17 06:00 102 11/24/17 06:00 96 100/60 2 04:20 100 40 11/24/17 04:00 100.0 114 14 124/73 (90) 100 11/24/17 04:00 40 11/24/17 04:00 114 11/24/17 03:48 117 121/74 11/24/17 03:47 109 121/74 11/24/17 02:00 87 11/24/17 01:06 100 40 2 00:00 40 11/24/17 00:00 85 11/24/17 00:00 100.8 85 28 103/54 (70) 100 2/18 22:11 109 131/67 2 22:00 93 11/23/17 21:00 78 85/52 11/23/17 20:09 100 40 11/23/17 20:00 100.8 78 14 107/59 (75) 100 11/23/17 20:00 40 11/23/17 20:00 78 11/23/17 18:00 91 11/23/17 16:00 40 11/23/17 16:00 100 11/23/17 16:00 100.4 100 14 107/67 (80) 100 11/23/17 15:42 100 40 11/23/17 14:00 84 11/23/17 13:25 97 109/66 11/23/17 12:00 94 11/23/17 12:00 40 11/23/17 12:00 100.6 94 14 97/54 (68) 100 11/23/17 11:46 100 40 (Carlos Enrique Zamora) Physical Examination GENERAL: Intubated and mechanically ventilated. Sedated on midazolam 6 mg/hr. No apparent distress. HEENT: Dry & intact dressing to scalp w/ventriculostomy drain in place. PERRLA 3 mm brisk. Orally intubated. OGT. MUSCULOSKELETAL: Moving left-sided extremities spontaneously. No evident clubbing or deformity. NEUROLOGICAL: Sedated with midazolam. Spontaneous right eye opening, left partially. Did follow a couple commands. PERRLA 3 mm brisk. Moves LUE & LLE spontaneously. Did move the LLE to command of daughter. Withdraws only left-sided extremities to local noxious stimulation. Facial grimace to RUE w/local noxious stimulation but not to RLE. Ventriculostomy at 10 cm H2O pressure with clear straw-coloured CSF draining. ICP at 15 when seen. (Carlos Enrique Zamora) Lab, Micro, Other Results Recent Impressions Chest X-Ray 11/26/17599 Signed Impressions: Service Date/Time: Sunday, November 26, 2017 04:57 - CONCLUSION: 1. Mild basilar airspace disease similar to November 25. NG tip in distal esophagus, partially withdrawn since prior exam. Clay Lam MD Chest X-Ray 11/25/17 06 Signed Impressions: Service Date/Time: Saturday, November 25, 2017 03:37 - CONCLUSION: 1. Support apparatus in good position. Basilar lung consolidation. No effusion or pneumothorax. Clay Lam MD Upper Extremity Ultrasound 11/25/17 0000 Signed Impressions: Service Date/Time: Saturday, November 25, 2017 18:56 - CONCLUSION: Positive for deep venous thrombosis bilateral extremities, right worse than left. Anurag Carrion MD Lower Extremity Ultrasound 11/25/17 0000 Signed Impressions: Service Date/Time: Saturday, November 25, 2017 17:50 - CONCLUSION: Negative for deep venous thrombosis bilateral lower extremity. Anurag Carrion MD Laboratory Tests Test 11/23/17 12:50 11/23/17 18:15 11/23/17 23:50 11/24/17 04:00 Sodium Level 159 MEQ/L 160 MEQ/L 162 MEQ/L 162 MEQ/L Potassium Level 3.7 MEQ/L 3.1 MEQ/L White Blood Count 19.2 TH/MM3 Red Blood Count 3.32 MIL/MM3 Hemoglobin 9.3 GM/DL Hematocrit 28.4 % Mean Corpuscular Volume 85.4 FL Mean Corpuscular Hemoglobin 28.0 PG Mean Corpuscular Hemoglobin Concent 32.8 % Red Cell Distribution Width 15.4 % Platelet Count 129 TH/MM3 Mean Platelet Volume 9.3 FL Neutrophils (%) (Auto) 75.4 % Lymphocytes (%) (Auto) 15.0 % Monocytes (%) (Auto) 9.4 % Eosinophils (%) (Auto) 0.0 % Basophils (%) (Auto) 0.2 % Neutrophils # (Auto) 14.5 TH/MM3 Lymphocytes # (Auto) 2.9 TH/MM3 Monocytes # (Auto) 1.8 TH/MM3 Eosinophils # (Auto) 0.0 TH/MM3 Basophils # (Auto) 0.0 TH/MM3 CBC Comment DIFF FINAL Differential Comment Blood Urea Nitrogen 19 MG/DL Creatinine 1.06 MG/DL Random Glucose 156 MG/DL Total Protein 5.7 GM/DL Albumin 2.3 GM/DL Calcium Level 9.9 MG/DL Phosphorus Level 1.9 MG/DL Magnesium Level 2.4 MG/DL Alkaline Phosphatase 91 U/L Aspartate Amino Transf (AST/SGOT) 37 U/L Alanine Aminotransferase (ALT/SGPT) 25 U/L Total Bilirubin 0.4 MG/DL Chloride Level 130 MEQ/L Carbon Dioxide Level 21.9 MEQ/L Anion Gap 10 MEQ/L Estimat Glomerular Filtration Rate 52 ML/MIN Test 11/24/17 14:26 11/24/17 17:42 11/25/17 00:30 11/25/17 05:50 Sodium Level 161 MEQ/L 163 MEQ/L 162 MEQ/L 163 MEQ/L Serum Osmolality 340 MOSM/KG 340 MOSM/KG 338 MOSM/KG 338 MOSM/KG White Blood Count 14.6 TH/MM3 Red Blood Count 3.33 MIL/MM3 Hemoglobin 9.5 GM/DL Hematocrit 28.2 % Mean Corpuscular Volume 84.8 FL Mean Corpuscular Hemoglobin 28.5 PG Mean Corpuscular Hemoglobin Concent 33.6 % Red Cell Distribution Width 15.7 % Platelet Count 148 TH/MM3 Mean Platelet Volume 9.1 FL Neutrophils (%) (Auto) 76.3 % Lymphocytes (%) (Auto) 15.8 % Monocytes (%) (Auto) 6.3 % Eosinophils (%) (Auto) 0.9 % Basophils (%) (Auto) 0.7 % Neutrophils # (Auto) 11.2 TH/MM3 Lymphocytes # (Auto) 2.3 TH/MM3 Monocytes # (Auto) 0.9 TH/MM3 Eosinophils # (Auto) 0.1 TH/MM3 Basophils # (Auto) 0.1 TH/MM3 CBC Comment AUTO DIFF Differential Total Cells Counted 100 Neutrophils % (Manual) 78 % Lymphocytes % 16 % Monocytes % 5 % Eosinophils % 1 % Neutrophils # (Manual) 11.4 TH/MM3 Differential Comment FINAL DIFF MANUAL Atypical Lymphocytes % Platelet Estimate LOW Platelet Morphology Comment NORMAL Red Cell Morphology Comment NORMAL Blood Urea Nitrogen 15 MG/DL Creatinine 0.84 MG/DL Random Glucose 155 MG/DL Total Protein 5.8 GM/DL Albumin 2.1 GM/DL Calcium Level 9.3 MG/DL Phosphorus Level 2.2 MG/DL Magnesium Level 2.4 MG/DL Alkaline Phosphatase 107 U/L Aspartate Amino Transf (AST/SGOT) 56 U/L Alanine Aminotransferase (ALT/SGPT) 50 U/L Total Bilirubin 0.3 MG/DL Potassium Level 3.4 MEQ/L Chloride Level 132 MEQ/L Carbon Dioxide Level 24.4 MEQ/L Anion Gap 7 MEQ/L Estimat Glomerular Filtration Rate 68 ML/MIN Test 11/25/17 16:40 11/25/17 17:50 11/26/17 01:15 11/26/17 05:40 Urine Color YELLOW Urine Turbidity CLEAR Urine pH 6.0 Urine Specific [place] 1.011 Urine Protein 30 mg/dL Urine Glucose (UA) NEG mg/dL Urine Ketones NEG mg/dL Urine Occult Blood SMALL Urine Nitrite NEG Urine Bilirubin NEG Urine Urobilinogen LESS THAN 2.0 MG/DL Urine Leukocyte Esterase TRACE Urine RBC 2 /hpf Urine WBC 6 /hpf Urine Squamous Epithelial Cells <1 /hpf Urine Bacteria RARE /hpf Urine Mucus MOD /lpf Microscopic Urinalysis Comment CATH-CULTURE IND Sodium Level 163 MEQ/L 164 MEQ/L 163 MEQ/L Serum Osmolality 343 MOSM/KG 341 MOSM/KG 343 MOSM/KG Procalcitonin 0.16 ng/mL White Blood Count 13.3 TH/MM3 Red Blood Count 3.12 MIL/MM3 Hemoglobin 8.7 GM/DL Hematocrit 26.7 % Mean Corpuscular Volume 85.8 FL Mean Corpuscular Hemoglobin 27.8 PG Mean Corpuscular Hemoglobin Concent 32.5 % Red Cell Distribution Width 15.9 % Platelet Count 166 TH/MM3 Mean Platelet Volume 9.0 FL Neutrophils (%) (Auto) 71.9 % Lymphocytes (%) (Auto) 18.2 % Monocytes (%) (Auto) 7.7 % Eosinophils (%) (Auto) 2.0 % Basophils (%) (Auto) 0.2 % Neutrophils # (Auto) 9.6 TH/MM3 Lymphocytes # (Auto) 2.4 TH/MM3 Monocytes # (Auto) 1.0 TH/MM3 Eosinophils # (Auto) 0.3 TH/MM3 Basophils # (Auto) 0.0 TH/MM3 CBC Comment DIFF FINAL Differential Comment Blood Urea Nitrogen 20 MG/DL Creatinine 0.93 MG/DL Random Glucose 139 MG/DL Total Protein 5.6 GM/DL Albumin 1.9 GM/DL Calcium Level 9.7 MG/DL Phosphorus Level 2.7 MG/DL Magnesium Level 2.6 MG/DL Alkaline Phosphatase 99 U/L Aspartate Amino Transf (AST/SGOT) 52 U/L Alanine Aminotransferase (ALT/SGPT) 51 U/L Total Bilirubin 0.3 MG/DL Potassium Level 3.8 MEQ/L Chloride Level 130 MEQ/L Carbon Dioxide Level 29.5 MEQ/L Anion Gap 4 MEQ/L Estimat Glomerular Filtration Rate 61 ML/MIN (Carlos Enrique Zamora) Medical Decision Making Impression and Plan Impression: Large left posterior temporal lobe prior low but occipital lobe hemorrhagic stroke with associated moderate mass effect and midline shift. The intracerebral hematoma measures approximately 80 ml. Chronic neck and back pain with intrathecal pump placement which was not refilled due to [facility] of [facility]. Likely is undergoing opiate withdrawal. Biliary obstruction with jaundice status post ERCP History of COPD Staph epidermidis bacteremia 2 with the urinary tract infection. Patient withdrawing only left-sided extremities to local noxious stimulation, did move LLE to command, spontaneous eye opening. Ventriculostomy output for the past 24 hours is 20 mL as of this morning. T max 101.8 this morning. Reviewed labs for today. Interval improvement in leukocytosis. Interval drop in haemoglobin. Resolution of thrombocytopenia. Sodium 163. eGFR below normal. Hypermagnesaemia. Plan: Continue with critical care. Continue to monitor neuro exam. Continue with ventriculostomy drainage and ICP management. Challenge ventriculostomy. Wean sedation as tolerated. Wean ventilator as tolerated. (Carlos Enrique Zamora) Attending Statement The exam, history, and the medical decision-making described in the above note were completed with the assistance of the mid-level provider. I reviewed and agree with the findings presented. I attest that I had a [id number] encounter with the patient on the same day, and personally performed and documented my assessment and findings in the medical record. On my examination today the patient remains intubated. Family is in the room with her Right eye remains open. She grimaces in response to pain in all extremities Mild flexion left upper and lower extremity to deep pain. Not following commands for me ICP presently is 8-9 with good waveform. CSF is clear Discussed with nursing staff Plan to close the ventriculostomy to the reservoir this evening, monitor ICP, check CT with the drain clamped in the morning. (Azar Ambriz MD) Carlos Enrique Zamora Nov 26, 2017 10:23 Azar Ambriz MD Nov 26, 2017 20:28
--- NOTE | 2017-11-26 15:22 | HHI.CCPN ---
Subjective Remarks/Hospital Course 62-year-old female with a past medical history significant for chronic pain with morphine pump, fibromyalgia, celiac disease and anxiety presented initially to the hospital for evaluation of leg spasms. The patient reports that she woke up approximately 1 AM and "could not control her legs." Her daughter gave her a 30 mg tablet of morphine to help with her symptoms yet they persisted. She was admitted to [facility] floor for further evaluation where she became suddenly lethargic and weak on the right side. The CT of the head was done immediately and shows large posterior parietal lobe hemorrhagic stroke with brain edema. She was immediately intubated for an airway protection and started on hyperosmolar therapy. 11/22: Patient underwent Left parietal craniotomy for intracerebral hematoma evacuation; Left frontal gt hole placement for ventriculostomy by Dr. Womack. Seen in the ICU immediately postop. Profoundly hypotensive systolic blood pressure initially in the 50s. Stat bolus of LR was ordered by anesthesia. Levophed increased to 12 mcg/min with improvement in systolic blood pressure to 110s. We will place arterial line. Currently patient is under the influence of anesthesia, not moving any extremities 11/23: T-max 101.1. Continues to be febrile. Placing NG tube and Julian catheter. Right upper extremity without movement. Withdraws right lower externally. Spontaneous movement to left upper and lower extremity. Starting on tube feeding. 11/24: Tmax 101.1. Currently. 2 bowel movement overnight. Urine with Escherichia coli/staph epi in blood. Potassium phosphorus been replaced. Hypertonic saline held due to sodium 160+. Very arousable off sedation with ICP is controlled. 11/25: Continues to spike intermittent fevers. Tolerating tube feeding at goal. With persistent fevers we will consult infectious disease. ICPs are well controlled. Sodium remains at 163. Subjective 11/26: no significant changes. hyperosmolar therapy continues. peak pressures elevated today into the 40s, but plateau pressure 19, suggestive of a flow restriction. given albuterol neb and changed to PRVC mode from VCV with improvement in peak pressures. Objective Vital Signs Date Time Temp Pulse Resp B/P (MAP) Pulse Ox O2 Delivery O2 Flow Rate FiO2 11/26/17 15:14 100 40 11/26/17 14:00 123 11/26/17 12:50 16 11/26/17 12:00 100.9 101/57 (72) Intake and Output 11/26/17 11/26/17 11/27/17 08:00 16:00 00:00 Intake Total 535 ml 100 ml Output Total 2020 ml Balance -1485 ml 100 ml Result Diagram: 11/26/17 0540 11/26/17 1230 Imaging Last Impressions Chest X-Ray 11/25/17 0600 Signed Impressions: Service Date/Time: Saturday, November 25, 2017 03:37 - CONCLUSION: 1. Support apparatus in good position. Basilar lung consolidation. No effusion or pneumothorax. Clay Lam MD Head CT 11/23/17 0600 Signed Impressions: Service Date/Time: November 05:09 - CONCLUSION: 1. Decreased left parietal region blood products following surgery. There is 7 mm of midline shift compared to 9 mm previously. 2. A left frontal ventricular catheter terminates in the midline and the lateral ventricles. The ventricles are normal in size. Jose Mccartney MD Abdomen/Pelvis CT 11/21/17 0000 Signed Impressions: Service Date/Time: Tuesday, November 21, 2017 21:37 - CONCLUSION: 1. No evidence to indicate pancreatitis. 2. Multiple stones in the gallbladder. 3. Multiple bilateral renal calculi.. 4. No significant changes compared to the prior exam. Meir Donnelly MD GI Procedure 11/20/17 0000 Signed Impressions: Service Date/Time: Monday, November 20, 2017 16:40 - CONCLUSION: ERCP as above. Jose Echevarria MD Objective Remarks GENERAL: 64-year-old female currently orotracheally intubated SKIN: Warm and dry. HEAD: Circumferential craniotomy dressing in place and left frontal EVD in place EYES: No scleral icterus. No injection or drainage. Pupils bilaterally 4 mm sluggish ENT: Orotracheally intubated NECK: Supple, trachea midline. No JVD. Right IJ CVL is clean dry and intact CARDIOVASCULAR: Regular rate and rhythm without murmurs, gallops, or rubs. RESPIRATORY: Breath sounds equal bilaterally. No accessory muscle use. no wheezing. good air entry. GASTROINTESTINAL: Abdomen soft, non-tender, nondistended. Subcutaneous morphine pump in the right upper quadrant without mottling MUSCULOSKELETAL: No cyanosis, or edema. NEURO EXAM: Patient is intubated, sedated. pupils equal, round, reactive. No withdrawal in any extremities no movement right upper extremity. Withdraws to pain right lower extremity. Spontaneous moving left upper and lower extremity. Nods head to simple answers appropriately. Line: Central Venous Catheter Side: Right Location: Internal, Jugular A/P Assessment and Plan Assessment: 62yF with large ICH, TBI, persistent encephalopathy, persistent acute hypoxic respiratory failure. critically ill today with high peak pressures on mechanical ventilation requiring urgent intervention to prevent barotrauma. cxr reviewed and unchanged, plateau pressure normal. likely flow restriction causing elevated pressures. now improving after acute intervention. remains life-threatening. NEURO/PSYCH: Large acute intraparenchymal hemorrhage involving the left parietal lobe Midline shift to the right by 9 mm [place] tip barachnoid hemorrhage and cerebral edema on the left side Depression/anxiety Chronic pain on Morphine pump Chronic opioid use [place] History of C-spine fusion Status post left parietal craniotomy for intracerebral hematoma evacuation, Left frontal gt hole placement for ventriculostomy by Dr. Womack. - Target CPP 60-70 Left ventric -18 cm clear. -10 cm H2O - 3% sodium chloride infusion, target Na 150-155 currently on hold is currently 159 - Received 1 g of levetiracetam. Currently at 500 mg IV every 12 -Propofol switched to midazolam drip titrated to rest -2 ventilator synchrony ICPs currently 4 Holding buspirone 30 mg twice daily and venlafaxine 50 mg twice daily for depression/anxiety. Resume when clinically indicated Holding acetaminophen/hydrocodone 325/7.51 tab every 6 hours as needed pain Holding scheduled morphine sulfate 30 mg every 12 hours Morphine liquid 5 mg every 6 hours scheduled with 1-2 mg every 3 hours as needed pain 1 through 10 Acetaminophen as needed for fever RESP: Acute respiratory failure Ongoing tobaccoism COPD - Intubated for an airway protection switch to prvc mode. nebs. monitor peak pressures. appears to be more flow- related: plateau pressure normal. no intrinsic lung restriction. Ventilator bundle Albuterol/ipratropium aerosols every 6 hours with albuterol aerosols every 2 hours as needed dyspnea Tobacco cessation booklet provided with appropriate CVS: Hypotension/shock Mild lactic acidosis History of hypertension - Use norepinephrine to target map above 65 CPP 60-70 - 3% saline currently on hold with sodium currently 162 - Hold metoprolol and lisinopril while on vasopressors GI: Acute pancreatitis Opioid-induced constipation Cholelithiasis History of celiac disease 11/21/17 s/p ERCP with sphincterotomy and balloon extraction, finding choledocholithiasis. increase 0.8. tumor markers WNL. lipase WNL. WBC significant increase today, appears diaphoretic. tachycardic. GI signed off Continue tube feedings with vital 1.5 goal 50 cc an hour Lansoprazole 30 mg daily for GI prophylaxis. Continue docusate sodium 100 mg twice daily and senna 8.6 mg twice daily. Patient is on polyethylene glycol 17 g twice daily at home for constipation : Julian catheter for accurate I's and O's in a critically ill patient FEN/RENAL: Acute kidney insufficiency Nephrolithiasis Hypokalemia Hypophosphatemia Hypernatremia - Monitor renal function closely, maintain Julian Free water 250 cc every 6 hours 30 mmol K-Phos IV 1. Recheck in AM ID: E. coli UTI Coag negative staph bacteremia - Continue ceftriaxone n for UTI - Repeat blood cultures, vancomycin 1 g 1 11/24 Pertinent cultures 11/19 -UA -pansensitive E. coli 11/20 -blood cultures 2 -coag negative staph/staph epi pansensitive 11/22 -blood cultures 2 -no growth to date blood culture 11/24 pending With persistent fevers consult infectious disease for further antibiotic coverage HEME: Leukocytosis Normocytic anemia Thrombocytopenia Sickle cell trait? - Leukocytosis most likely stress related - Monitor CBC daily. Follow trend DVT GI prophylaxis - Teds SCDs - No pharmacological DVT prophylaxis due to acute ICH - Iansoprazole 30 mg by tube daily Critical Care: The total critical care time was 31 minutes. Time to perform other separately billable procedures was not included in the critical care time. Juan Millard MD Nov 26, 2017 15:22
--- NOTE | 2017-11-26 18:35 | HHI.IDPN ---
Subjective Subjective Remarks Delayed entry patient seen earlier at approximately 1 PM History of Present Illness is a 62 y/o CF with PMHx of chronic neck and back pain who is on a morphine intrathecal pump ([facility] is pain medicine provider). Reportedly last refill for pump was 3 months prior to this admission. With this back ground patient presented to the ED with symptoms reportedly thought to be due to morphine withdrawal with shaking limbs, anxiety, abdominal pain and nausea. The pain specialist informed her that she could not refill the pump anymore since the [place] was not authorizing this. She has a past medical history significant for chronic neck and back pain with history of cervical and lumbar spine surgeries, COPD, fibromyalgia, celiac disease and anxiety. She was admitted to [facility] for further evaluation where she became suddenly lethargic, aphasic and weak on the right side on 11/20/2017 after the endoscopy for biliary obstruction. ERCP was done for biliary pancreatitis and sphinceterotomy and balloon extraction performed. The CT of the head was done and shows large posterior parietal lobe hemorrhagic stroke with brain edema. She was transferred to the intensive care unit and intubated for an airway protection and started on hyperosmolar therapy. Neurosurgery has been consulted this morning for the cerebral hemorrhage. She was intubated and underwent CL and arterial line placement. On Nov 22, 2017 patient underwent Left parietal craniotomy for intracerebral hematoma evacuation; Left frontal gt hole placement for ventriculostomy; microsurgical technique. Patient has been spiking fevers since 11/22/2017. Urine culture grew E.coli and patient has been treated for possible UTI with ceftriaxone. Patient is on prophylactic Keppra. Patient has had blood cultures that are growing 2 different species of Staph in 2 out of 4 bottles. Repeat blood cultures with no growth thereafter. ID is consulted for evaluation and mment of persistent fevers in a neurosurgery patient. At the time of my evaluation, patient is in the ISC unit. On Levophed 8 mics, UO ok. Not much oral secretions. Remains intubated. Opens eyes spontaneously. No tracking for me. Moves all 4 limbs although right arm is sluggish and she only wiggles her fingers. No rash. No diarrhea. Clinically stable and appears to be getting off pressors. No reported seizures. She has an ICP monitor in place with pressures in acceptable range. Overnight events reviewed. Persistent high-grade fevers noted. Pro calcitonin elevated. Remains on low-dose levo No rash No diarrhea Remains intubated No neurological change noted. Antibiotics Rocephin IV Lines Line sites with no e.o infection Past Medical History reviewed Allergies: Coded Allergies: bupropion (Unverified Allergy, Severe, 05/30/17) diclofenac (Unverified Allergy, Severe, ULCER HX, 05/30/17) erythromycin base (Unverified Allergy, Severe, 05/30/17) etodolac (Unverified Allergy, Severe, ULCER HX, 05/30/17) flurbiprofen (Unverified Allergy, Severe, ULCER HX, 05/30/17) gabapentin (Unverified Allergy, Severe, 05/30/17) gluten (Unverified Allergy, Severe, BLOATING, 05/30/17) ibuprofen (Unverified Allergy, Severe, ULCER HX, 05/30/17) indomethacin (Unverified Allergy, Severe, ULCER HX, 05/30/17) ketoprofen (Unverified Allergy, Severe, ULCER HX, 05/30/17) ketorolac (Unverified Allergy, Severe, ULCER HX, 05/30/17) naproxen (Unverified Allergy, Severe, ULCER HX, 05/30/17) oxaprozin (Unverified Allergy, Severe, ULCER HX, 05/30/17) penicillin G (Unverified Allergy, Severe, 05/30/17) sulfamethoxazole (Unverified Allergy, Severe, 05/30/17) topiramate (Unverified Allergy, Severe, 05/30/17) trimethoprim (Unverified Allergy, Severe, 05/30/17) Objective . Vital Signs Date Time Temp Pulse Resp B/P (MAP) Pulse Ox O2 Delivery O2 Flow Rate FiO2 11/26/17 18:00 122 11/26/17 17:43 16 11/26/17 17:43 16 11/26/17 16:00 40 11/26/17 16:00 123 11/26/17 16:00 101.5 125 16 107/56 (73) 100 11/26/17 15:14 100 40 11/26/17 14:00 123 11/26/17 12:00 122 11/26/17 12:00 40 11/26/17 12:00 100.9 122 14 101/57 (72) 100 11/26/17 11:39 100 40 11/26/17 10:00 120 11/26/17 08:00 100 11/26/17 08:00 40 11/26/17 08:00 100.9 108 14 119/63 (81) 100 11/26/17 07:37 100 40 11/26/17 06:47 105 114/60 11/26/17 06:00 104 11/26/17 04:05 100 40 11/26/17 04:00 101.8 120 14 100 11/26/17 04:00 40 11/26/17 04:00 120 11/26/17 02:00 110 11/26/17 01:05 100 40 11/26/17 00:00 40 11/26/17 00:00 101.3 118 14 100 11/26/17 00:00 118 11/25/17 22:56 116 131/63 11/25/17 22:00 114 11/25/17 20:17 100 40 11/25/17 20:00 112 11/25/17 20:00 101.3 112 14 11/25/17 20:00 40 11/26/17 11/26/17 11/27/17 15:00 23:00 07:00 Intake Total 100 ml 1050 ml Output Total 1575 ml Balance 100 ml -525 ml IV Total 100 ml Tube Feeding 1025 ml Tube Irrigant 25 ml Output Urine Total 1550 ml Drainage Total 25 ml # Bowel Movements 2 . Laboratory Tests Test 11/25/17 05:50 11/26/17 05:40 White Blood Count 14.6 TH/MM3 13.3 TH/MM3 Red Blood Count 3.33 MIL/MM3 3.12 MIL/MM3 Hemoglobin 9.5 GM/DL 8.7 GM/DL Hematocrit 28.2 % 26.7 % Mean Corpuscular Volume 84.8 FL 85.8 FL Mean Corpuscular Hemoglobin 28.5 PG 27.8 PG Mean Corpuscular Hemoglobin Concent 33.6 % 32.5 % Red Cell Distribution Width 15.7 % 15.9 % Platelet Count 148 TH/MM3 166 TH/MM3 Mean Platelet Volume 9.1 FL 9.0 FL Neutrophils (%) (Auto) 76.3 % 71.9 % Lymphocytes (%) (Auto) 15.8 % 18.2 % Monocytes (%) (Auto) 6.3 % 7.7 % Eosinophils (%) (Auto) 0.9 % 2.0 % Basophils (%) (Auto) 0.7 % 0.2 % Neutrophils # (Auto) 11.2 TH/MM3 9.6 TH/MM3 Lymphocytes # (Auto) 2.3 TH/MM3 2.4 TH/MM3 Monocytes # (Auto) 0.9 TH/MM3 1.0 TH/MM3 Eosinophils # (Auto) 0.1 TH/MM3 0.3 TH/MM3 Basophils # (Auto) 0.1 TH/MM3 0.0 TH/MM3 CBC Comment AUTO DIFF DIFF FINAL Differential Total Cells Counted 100 Neutrophils % (Manual) 78 % Lymphocytes % 16 % Monocytes % 5 % Eosinophils % 1 % Neutrophils # (Manual) 11.4 TH/MM3 Differential Comment FINAL DIFF MANUAL Atypical Lymphocytes % Platelet Estimate LOW Platelet Morphology Comment NORMAL Red Cell Morphology Comment NORMAL Laboratory Tests Test 11/25/17 00:30 11/25/17 05:50 11/25/17 17:50 11/26/17 01:15 Sodium Level 162 MEQ/L 163 MEQ/L 163 MEQ/L 164 MEQ/L Serum Osmolality 338 MOSM/KG 338 MOSM/KG 343 MOSM/KG 341 MOSM/KG Blood Urea Nitrogen 15 MG/DL Creatinine 0.84 MG/DL Random Glucose 155 MG/DL Total Protein 5.8 GM/DL Albumin 2.1 GM/DL Calcium Level 9.3 MG/DL Phosphorus Level 2.2 MG/DL Magnesium Level 2.4 MG/DL Alkaline Phosphatase 107 U/L Aspartate Amino Transf (AST/SGOT) 56 U/L Alanine Aminotransferase (ALT/SGPT) 50 U/L Total Bilirubin 0.3 MG/DL Potassium Level 3.4 MEQ/L Chloride Level 132 MEQ/L Carbon Dioxide Level 24.4 MEQ/L Anion Gap 7 MEQ/L Estimat Glomerular Filtration Rate 68 ML/MIN Procalcitonin 0.16 ng/mL Test 11/26/17 05:40 11/26/17 12:30 Blood Urea Nitrogen 20 MG/DL Creatinine 0.93 MG/DL Random Glucose 139 MG/DL Total Protein 5.6 GM/DL Albumin 1.9 GM/DL Calcium Level 9.7 MG/DL Phosphorus Level 2.7 MG/DL Magnesium Level 2.6 MG/DL Alkaline Phosphatase 99 U/L Aspartate Amino Transf (AST/SGOT) 52 U/L Alanine Aminotransferase (ALT/SGPT) 51 U/L Total Bilirubin 0.3 MG/DL Sodium Level 163 MEQ/L 165 MEQ/L Potassium Level 3.8 MEQ/L Chloride Level 130 MEQ/L Carbon Dioxide Level 29.5 MEQ/L Anion Gap 4 MEQ/L Estimat Glomerular Filtration Rate 61 ML/MIN Serum Osmolality 343 MOSM/KG 342 MOSM/KG Microbiology Date/Time Source Procedure Growth Status 11/25/17 17:50 Blood Line Aerobic Blood Culture - Preliminary NO GROWTH IN 1 DAY Resulted 11/25/17 17:50 Blood Line Anaerobic Blood Culture - Preliminary NO GROWTH IN 1 DAY Resulted 11/25/17 16:55 Blood Peripheral Aerobic Blood Culture - Preliminary NO GROWTH IN 1 DAY Resulted 11/25/17 16:55 Blood Peripheral Anaerobic Blood Culture - Preliminary NO GROWTH IN 1 DAY Resulted 11/26/17 15:00 Cerebral Spinal Fluid Lumbar Puncture Fungal Smear Pending Received 11/26/17 15:00 Cerebral Spinal Fluid Lumbar Puncture Fungal Culture Pending Received 11/26/17 15:00 Cerebral Spinal Fluid Lumbar Puncture Acid Fast Stain Pending Received 11/26/17 15:00 Cerebral Spinal Fluid Lumbar Puncture Mycobacterial Culture Pending Received 11/26/17 15:00 Cerebral Spinal Fluid Lumbar Puncture Gram Stain - Final Resulted 11/26/17 15:00 Cerebral Spinal Fluid Lumbar Puncture CSF Culture Pending Resulted 11/25/17 16:40 Urine Catheterized Urine Urine Culture - Preliminary NO GROWTH IN 24 HOURS. Resulted Imaging Last Impressions Chest X-Ray 11/26/17 0600 Signed Impressions: Service Date/Time: Sunday, November 26, 2017 04:57 - CONCLUSION: 1. Mild basilar airspace disease similar to November 25. NG tip in distal esophagus, partially withdrawn since prior exam. Clay Lam MD Upper Extremity Ultrasound 11/25/17 0000 Signed Impressions: Service Date/Time: Saturday, November 25, 2017 18:56 - CONCLUSION: Positive for deep venous thrombosis bilateral extremities, right worse than left. Anurag Carrion MD Lower Extremity Ultrasound 11/25/17 0000 Signed Impressions: Service Date/Time: Saturday, November 25, 2017 17:50 - CONCLUSION: Negative for deep venous thrombosis bilateral lower extremity. Anurag Carrion MD Head CT 11/23/17 0600 Signed Impressions: Service Date/Time: November 05:09 - CONCLUSION: 1. Decreased left parietal region blood products following surgery. There is 7 mm of midline shift compared to 9 mm previously. 2. A left frontal ventricular catheter terminates in the midline and the lateral ventricles. The ventricles are normal in size. Jose Mccartney MD Abdomen/Pelvis CT 11/21/17 0000 Signed Impressions: Service Date/Time: Tuesday, November 21, 2017 21:37 - CONCLUSION: 1. No evidence to indicate pancreatitis. 2. Multiple stones in the gallbladder. 3. Multiple bilateral renal calculi.. 4. No significant changes compared to the prior exam. Meir Donnelly MD GI Procedure 11/20/17 0000 Signed Impressions: Service Date/Time: Monday, November 20, 2017 16:40 - CONCLUSION: ERCP as above. Jose Echevarria MD Physical Exam GENERAL: This is a well-nourished, well-developed patient, in no apparent distress. SKIN: No rash. HEAD: ICP drain and head dressing in place. EYES: Pupils equal round and reactive. No scleral icterus. No injection or drainage. ENT: Intubated. NECK: difficult to assess. CARDIOVASCULAR: HS audible. RESPIRATORY: Clear to auscultation. Breath sounds equal bilaterally. No wheezes , rales, or rhonchi. GASTROINTESTINAL: Abdomen soft, non-tender, nondistended. Pain pump site palpable with no tenderness and no superficial signs of infection. MUSCULOSKELETAL: Extremities without clubbing, cyanosis, or edema. NEUROLOGICAL: Opens eyes spontaneously. Moves LUE, LLE, RLE. RUE with some movts at finger level. Psych could not be assessed. IV line sites with no e.o infection. Assessment & Plan Remarks Fever, tachycardia, Elevated WBC: SIRS possible sepsis. Rule out Meningitis. Source: Pneumonia possible given basilar infiltrates on CXR. Fever persistent: infection, non infectious causes (DVT, Keppra) Bilateral UE DVTs Staph epi bacteremia likely contaminant. Stroke s.p Left parietal craniotomy for intracerebral hematoma evacuation; Left frontal gt hole placement for ventriculostomy; microsurgical technique (2017) Chronic neck and back pain h/o fusion Intra thecal pump presence. On vent Encephalopathy: stroke, infection. Recs: Continue Ceftriaxone IV If any change in clinical condition overnight change to Cefepime plus vanco plus flagyl combo +/- Micafungin. Elevated Procalcitonin: will check for CSF studies and other work up. No clinical worsening noted. Plan as above if clinical deterioration. Check Blood cultures (line and periphery) CXR reviewed with basilar infiltrates. Check UA and Doppler UE and LE. odette/raine FORMAN for Neurosurgery: to get CSF for studies to r/o meningitis. Bilateral UE DVT could be source of fever will defer anticoagulation to Neurosurgery and CCM as timing may not be optimal. Follow cultures Follow clinically. omar CHAN No family in room. Argelia Coleman MD Nov 26, 2017 18:35
[2017-11-26 18:54] LABS: CSF LYMPHOCYTES 50 %; CSF NEUTROPHILS 50 %; RBC TUBE #1 676 /MM3; SUPERNATE COLOR TUBE #1 CLEAR (CLEAR); WBC TUBE #1 21 /MM3 (0-10)
[2017-11-27] VITALS (18 sets, daily range): BP systolic 103–135; BP diastolic 55–67; PULSE 98–118; RESP 13–20; TEMP 100.4–101.1; O2SAT 100
[2017-11-27] MEDS: MIDAZOLAM 100 MG/100 ML INJ 100 ML IV PRN
[2017-11-27] MEDS: RESP: ALBUTEROL 2.5 MG/IPRATROPIUM 0.5 MG NEB (SCH) NEB ×4 (03:27→20:03)
[2017-11-27] MEDS: NOREPINEPHRINE INJ 4 MG in SODIUM CHLOR 0.9% 250 ML INJ 246 ML IV PRN (03:59)
[2017-11-27] MEDS: MORPHINE SULFATE 4 MG/ML INJ IV PUSH PRN ×2 (04:00→20:01)
--- NOTE | 2017-11-27 04:35 | RADRPT ---
EXAM DATE/TIME: 11/27/2017 04:18 [place] COMPARISON: CT BRAIN W/O CONTRAST, November 23, 2017, 5:09. INDICATIONS : Intracerebral hemorrhage. RADIATION DOSE: 45.81 CTDIvol (mGy) MEDICAL HISTORY : Cardiovascular disease. Chronic obstructive pulmonary disease. Gastroesophageal reflux disease.Celiac disease. Fibromyalgia. SURGICAL HISTORY : Tubal ligation. Fusion, cervical.Cardiac cath. ENCOUNTER: Subsequent ACUITY: 1 week PAIN SCALE: Non-responsive LOCATION: cranial TECHNIQUE: Multiple contiguous axial images were obtained of the head. Using automated exposure control and adj ustment of the mA and/or kV according to patient size, radiation dose was kept as low as reasonably a chievable to obtain optimal diagnostic quality images. DICOM format image data is available electro nically for review and comparison. FINDINGS: Postsurgical changes of left parietal craniotomy again noted with skin justen, craniotomy defect, an d a left frontal approach ventriculostomy catheter is noted, with the tip terminating in the right fr ontal horn. There is edema and hemorrhage in the left parietal lobe again seen with decreased pneumoc ephalus, and no new areas of hemorrhage are seen. There is subarachnoid hemorrhage and intraparenchym al hemorrhage identified, as well as sulcal effacement of the left frontal and parietal regions, stab le. There remains left to right shift approximately 3.1 mm. Trace interhemispheric blood identified. CONCLUSION: Decreased pneumocephalus, stable intracranial intra-axial extra-axial hemorrhage and left parietal ed samantha, with postsurgical changes and midline shift. Ariel Nath MD on November 27, 2017 at 4:30 Board Certified Radiologist. This report was verified electronically.
[2017-11-27] MEDS: MORPHINE SULFATE ORAL SOLN 10 MG/0.5 ML SYRINGE PO SCH (05:55)
[2017-11-27] MEDS: levETIRAcetam INJ 500 MG in SODIUM CHLORIDE 0.9% INJ 100 ML IV SCH ×2 (05:55→17:19)
[2017-11-27] MEDS: ARTIFICIAL TEARS OPTH SOLN 15 ML BTL EACH EYE SCH ×3 (05:55→21:24)
[2017-11-27] MEDS: DOCUSATE SODIUM 100 MG/10 ML UDC PO SCH ×2 (08:00→21:24)
[2017-11-27] MEDS: SENNOSIDES SYRUP 8.8 MG/5 ML CUP NG SCH ×2 (08:00→21:23)
[2017-11-27] MEDS: LANSOPRAZOLE SOLUTAB 30 MG TAB NG SCH (08:00)
[2017-11-27] MEDS: TRIAMCINOLONE ACETONIDE 0.1% CREAM 15 GM TOPICAL SCH ×2 (08:08→21:24)
[2017-11-27] MEDS: cefTRIAXone INJ 1,000 MG in SODIUM CHLORIDE 0.9% INJ 100 ML IV SCH (08:17)
[2017-11-27] MEDS: SODIUM CHLORIDE 0.9% FLUSH 10 ML FLUSH IV FLUSH SCH ×2 (08:26→21:24)
--- NOTE | 2017-11-27 09:28 | HHI.NSPN ---
(Zack Ramirez) History Chief Complaint: Unable to obtain due to patient's clinical conditon. (Zack Ramirez) Interval History 62-year-old female admitted on 11/19/2017 after she presented to the emergency room with symptoms that seem to be related to morphine withdrawal with the shaking in her lower extremities along with the anxiety abdominal pain and nausea. She has an intrathecal pain pump placed to which the daughter states enters into the cervical and lumbar spine last year with a last pump refill with morphine 3 months ago. The pain specialist informed her that she could not refill the pump anymore since the [place] was not authorizing this. She has a past medical history significant for chronic neck and back pain with history of cervical and lumbar spine surgeries, COPD, fibromyalgia, celiac disease and anxiety. She was admitted to [facility] for further evaluation where she became suddenly lethargic, aphasic and weak on the right side yesterday after the endoscopy for biliary obstruction. The CT of the head was done and shows large posterior parietal lobe hemorrhagic stroke with brain edema. She was transferred to the intensive care unit and intubated for an airway protection and started on hyperosmolar therapy. Neurosurgery has been consulted this morning for the cerebral hemorrhage. 11/22/17: Pt underwent a Left parietal craniotomy for intracerebral hematoma evacuation; Left frontal gt hole placement for ventriculostomy early this morning. Post op assessment done by me reveals she is sedated on Diprivan. Pupils are 3mm bilaterally, reactive bilaterally. Ventriculostomy drain in place at 10cm H20 without drainage or waveform and ICPs read 12. There is air in the line. 11/23/17: Waveform improved yesterday after flushing and again this morning was dampened with air in the ventriculostomy line. This was flushed again using sterile technique with betadine swab at the CSF port and a waveform returned and ICPs are 7. Pt is sedated and intubated. She opens her eyes. Not following commands. 11/24/17: Pt sedated on Diprivan, held and pt starting to open eyes and becomes agitated. Not following commands. Ventriculostomy in place at [id number], ICP 7. 11/27/17: Pts sedation being weaned. Opens eyes slightly spontaneously. Not following commands. Right hemiparesis. (Zack Ramirez) System Review Comments Not able to obtain given clinical condition. (Zack Ramirez) Exam Results Vital Signs Date Time Temp Pulse Resp B/P (MAP) Pulse Ox O2 Delivery O2 Flow Rate FiO2 11/27/17 08:21 100 40 11/27/17 06:00 116 11/27/17 04:00 100.8 20 135/67 (89) Intake and Output 11/27/17 11/27/17 11/28/17 08:00 16:00 00:00 Intake Total 976 ml Output Total 1200 ml Balance -224 ml (Zack Ramirez) Physical Examination GENERAL: Intubated and mechanically ventilated. Sedated on midazolam but being weaned. No apparent distress. HEENT: Dry & intact dressing to scalp w/ventriculostomy drain in place. PERRLA 3 mm brisk. Orally intubated. OGT. RESP: CTA bilaterally. Intubated. Being placed on CPAP this am. HEART: Tachycardic, HR 110s. No murmurs ABD: Soft positive bs SKIN: Incision clean and dry. No signs of infection. MUSCULOSKELETAL: Moving left-sided extremities spontaneously. Right sided dense paresis. No evident clubbing or deformity. NEUROLOGICAL: Sedation being weaned. Spontaneous right eye opening, left partially. PERRLA 3 mm brisk. Ventriculostomy drain clamped. ICP 0 with good waveform. (Zack Ramirez) Lab, Micro, Other Results Last Impressions Chest X-Ray 11/26/17 0600 Signed Impressions: Service Date/Time: Sunday, November 26, 2017 04:57 - CONCLUSION: 1. Mild basilar airspace disease similar to November 25. NG tip in distal esophagus, partially withdrawn since prior exam. Clay Lam MD Head CT 11/26/17 0000 Signed Impressions: Service Date/Time: Monday, November 27, 2017 04:18 - CONCLUSION: Decreased pneumocephalus, stable intracranial intra-axial extra-axial hemorrhage and left parietal edema, with postsurgical changes and midline shift. Ariel Nath MD Upper Extremity Ultrasound 11/25/17 0000 Signed Impressions: Service Date/Time: Saturday, November 25, 2017 18:56 - CONCLUSION: Positive for deep venous thrombosis bilateral extremities, right worse than left. Anurag Carrion MD Lower Extremity Ultrasound 11/25/17 0000 Signed Impressions: Service Date/Time: Saturday, November 25, 2017 17:50 - CONCLUSION: Negative for deep venous thrombosis bilateral lower extremity. Anurag Carrion MD Abdomen/Pelvis CT 11/21/17 0000 Signed Impressions: Service Date/Time: Tuesday, November 21, 2017 21:37 - CONCLUSION: 1. No evidence to indicate pancreatitis. 2. Multiple stones in the gallbladder. 3. Multiple bilateral renal calculi.. 4. No significant changes compared to the prior exam. Meir Donnelly MD GI Procedure 11/20/17 0000 Signed Impressions: Service Date/Time: Monday, November 20, 2017 16:40 - CONCLUSION: ERCP as above. Jose Echevarria MD Laboratory Tests Test 11/26/17 12:30 11/26/17 15:00 11/26/17 19:00 11/26/17 23:00 Sodium Level 165 MEQ/L 164 MEQ/L Serum Osmolality 342 MOSM/KG 345 MOSM/KG CSF Volume (Tube 1) 2.0 ML CSF Supernatant Color (tube 1) CLEAR CSF Gross Blood (Tube 1) 1+ CSF WBC (Tube 1) 21 /MM3 CSF RBC (Tube 1) 676 /MM3 CSF Neutrophils 50 % CSF Lymphocytes 50 % CSF Differential Comment CSF Glucose 102 MG/DL CSF Total Protein 18.0 MG/DL Test 11/27/17 00:10 11/27/17 06:00 Sodium Level 164 MEQ/L 164 MEQ/L Serum Osmolality 347 MOSM/KG 348 MOSM/KG (Zack Ramirez) Medical Decision Making Impression and Plan A: Large left posterior temporal lobe prior low but occipital lobe hemorrhagic stroke with associated moderate mass effect and midline shift. The intracerebral hematoma measures approximately 80 ml. Chronic neck and back pain with intrathecal pump placement which was not refilled due to lack of [facility] the [facility]. Likely is undergoing opiate withdrawal. Biliary obstruction with jaundice status post ERCP History of COPD Staph epidermidis bacteremia 2 with the urinary tract infection. Pt has since had negative BC. P: Continue with critical care Continue to monitor Neuro exam Discontinue Ventriculostomy using sterile technique. (Zack Ramirez) Attending Statement The exam, history, and the medical decision-making described in the above note were completed with the assistance of the mid-level provider. I reviewed and agree with the findings presented. I attest that I had a [id number] encounter with the patient on the same day, and personally performed and documented my assessment and findings in the medical record. (Og Womack MD) Zack Ramirez Nov 27, 2017 09:28 Og Womack MD Nov 27, 2017 17:39
[2017-11-27] MEDS ORDERED: LIDOCAINE 2%/EPINEPHrine 1:100,000 20ML MDV INFIL ONE (11:00)
--- NOTE | 2017-11-27 11:46 | HHI.CCPN ---
Subjective Remarks/Hospital Course 62-year-old female with a past medical history significant for chronic pain with morphine pump, fibromyalgia, celiac disease and anxiety presented initially to the hospital for evaluation of leg spasms. The patient reports that she woke up approximately 1 AM and "could not control her legs." Her daughter gave her a 30 mg tablet of morphine to help with her symptoms yet they persisted. She was admitted to [facility] floor for further evaluation where she became suddenly lethargic and weak on the right side. The CT of the head was done immediately and shows large posterior parietal lobe hemorrhagic stroke with brain edema. She was immediately intubated for an airway protection and started on hyperosmolar therapy. 11/22: Patient underwent Left parietal craniotomy for intracerebral hematoma evacuation; Left frontal gt hole placement for ventriculostomy by Dr. Womack. Seen in the ICU immediately postop. Profoundly hypotensive systolic blood pressure initially in the 50s. Stat bolus of LR was ordered by anesthesia. Levophed increased to 12 mcg/min with improvement in systolic blood pressure to 110s. We will place arterial line. Currently patient is under the influence of anesthesia, not moving any extremities 11/23: T-max 101.1. Continues to be febrile. Placing NG tube and Julian catheter. Right upper extremity without movement. Withdraws right lower externally. Spontaneous movement to left upper and lower extremity. Starting on tube feeding. 11/24: Tmax 101.1. Currently. 2 bowel movement overnight. Urine with Escherichia coli/staph epi in blood. Potassium phosphorus been replaced. Hypertonic saline held due to sodium 160+. Very arousable off sedation with ICP is controlled. 11/25: Continues to spike intermittent fevers. Tolerating tube feeding at goal. With persistent fevers we will consult infectious disease. ICPs are well controlled. Sodium remains at 163. 11/26: no significant changes. hyperosmolar therapy continues. peak pressures elevated today into the 40s, but plateau pressure 19, suggestive of a flow restriction. given albuterol neb and changed to PRVC mode from VCV with improvement in peak pressures. Subjective 11/27: T-max 101.5. Currently 100.9. Planned ventriculostomy removal today. Will discuss with neurosurgery initiation of of pharmacological treatment for bilateral upper extremity deep venous thrombosis. Tolerating tube feeds goal will be 55 cc an hour Objective Vital Signs Date Time Temp Pulse Resp B/P (MAP) Pulse Ox O2 Delivery O2 Flow Rate FiO2 11/27/17 10:00 116 11/27/17 08:21 100 40 11/27/17 08:00 100.8 14 103/55 (71) Intake and Output 11/27/17 11/27/17 11/28/17 08:00 16:00 00:00 Intake Total 976 ml Output Total 1200 ml Balance -224 ml Result Diagram: 11/26/17 0540 11/27/17 0600 Other Results Microbiology Date/Time Source Procedure Growth Status 11/25/17 17:50 Blood Line Aerobic Blood Culture - Preliminary NO GROWTH IN 2 DAYS Resulted 11/25/17 17:50 Blood Line Anaerobic Blood Culture - Preliminary NO GROWTH IN 2 DAYS Resulted 11/26/17 15:00 Cerebral Spinal Fluid Lumbar Puncture Fungal Smear Pending Received 11/26/17 15:00 Cerebral Spinal Fluid Lumbar Puncture Fungal Culture Pending Received 11/25/17 16:40 Urine Catheterized Urine Urine Culture - Final NO GROWTH IN 48 HOURS. Complete Imaging Last Impressions Chest X-Ray 11/26/17 0600 Signed Impressions: Service Date/Time: Sunday, November 26, 2017 04:57 - CONCLUSION: 1. Mild basilar airspace disease similar to November 25. NG tip in distal esophagus, partially withdrawn since prior exam. Clay Lam MD Head CT 11/26/17 0000 Signed Impressions: Service Date/Time: Monday, November 27, 2017 04:18 - CONCLUSION: Decreased pneumocephalus, stable intracranial intra-axial extra-axial hemorrhage and left parietal edema, with postsurgical changes and midline shift. Ariel Nath MD Upper Extremity Ultrasound 11/25/17 0000 Signed Impressions: Service Date/Time: Saturday, November 25, 2017 18:56 - CONCLUSION: Positive for deep venous thrombosis bilateral extremities, right worse than left. Anurag Carrion MD Lower Extremity Ultrasound 11/25/17 0000 Signed Impressions: Service Date/Time: Saturday, November 25, 2017 17:50 - CONCLUSION: Negative for deep venous thrombosis bilateral lower extremity. Anurag Carrion MD Abdomen/Pelvis CT 11/21/17 0000 Signed Impressions: Service Date/Time: Tuesday, November 21, 2017 21:37 - CONCLUSION: 1. No evidence to indicate pancreatitis. 2. Multiple stones in the gallbladder. 3. Multiple bilateral renal calculi.. 4. No significant changes compared to the prior exam. Meir Dnonelly MD GI Procedure 11/20/17 0000 Signed Impressions: Service Date/Time: Monday, November 20, 2017 16:40 - CONCLUSION: ERCP as above. Jose Echevarria MD Objective Remarks GENERAL: 64-year-old female currently orotracheally intubated SKIN: Warm and dry. HEAD: Circumferential craniotomy dressing in place and left frontal EVD in place EYES: No scleral icterus. No injection or drainage. Pupils bilaterally 4 mm sluggish ENT: Orotracheally intubated. No thrush NECK: Supple, trachea midline. No JVD. Right IJ CVL is clean dry and intact CARDIOVASCULAR: Regular rate and rhythm without murmurs, gallops, or rubs. RESPIRATORY: Breath sounds equal bilaterally. No accessory muscle use. no wheezing. good air entry. GASTROINTESTINAL: Abdomen soft, non-tender, nondistended. Subcutaneous morphine pump in the right upper quadrant without mottling MUSCULOSKELETAL: Bilateral upper extremity edema NEURO EXAM: Patient is intubated, sedated. pupils equal, round, reactive. No withdrawal in any extremities no movement right upper extremity. Withdraws to pain right lower extremity. Spontaneous moving left upper and lower extremity. Nods head to simple answers appropriately. Urinary Catheter: Yes Assessment to: Continue Julian insert reason: Prolonged Immobilization Vascular Central Line Catheter: Yes Assessment to: Continue Date of Insertion: Nov 22, 2017 Line: Central Venous Catheter Side: Right Location: Internal, Jugular A/P Assessment and Plan NEURO/PSYCH: Large acute intraparenchymal hemorrhage involving the left parietal lobe Midline shift to the right by 9 mm [place]illa tip barachnoid hemorrhage and cerebral edema on the left side Depression/anxiety Chronic pain on Morphine pump Chronic opioid use [place] History of C-spine fusion Status post left parietal craniotomy for intracerebral hematoma evacuation, Left frontal gt hole placement for ventriculostomy by Dr. Womack. Left ventric -18 cm clear. -20 cm H2O -to be removed today - 3% sodium chloride infusion, target Na 150-155 currently on hold is currently 164 - Received 1 g of levetiracetam. Currently at 500 mg IV every 12 -Propofol switched to midazolam drip titrated currently 2 mg an hour ICPs currently 4 Holding buspirone 30 mg twice daily and venlafaxine 50 mg twice daily for depression/anxiety. Resume when clinically indicated Holding acetaminophen/hydrocodone 325/7.51 tab every 6 hours as needed pain Holding scheduled morphine sulfate 30 mg every 12 hours Morphine liquid 10 mg every 6 hours scheduled with 1-2 mg every 3 hours as needed pain 1 through 10 Acetaminophen as needed for fever RESP: Acute respiratory failure Ongoing tobaccoism COPD - Intubated for an airway protection [facility] 14//10/20/39 Ventilator bundle Albuterol/ipratropium aerosols every 6 hours with albuterol aerosols every 2 hours as needed dyspnea Tobacco cessation booklet provided with appropriate CVS: Hypotension/shock Mild lactic acidosis History of hypertension - Use norepinephrine at 3 mcg/min to target map above 65 CPP 60-70. - 3% saline currently on hold with sodium currently 164 - Hold metoprolol and lisinopril while on vasopressors GI: Acute pancreatitis Opioid-induced constipation Cholelithiasis History of celiac disease 11/21/17 s/p ERCP with sphincterotomy and balloon extraction, finding choledocholithiasis. increase 0.8. tumor markers WNL. lipase WNL. WBC significant increase today, appears diaphoretic. tachycardic. GI signed off Continue tube feedings with vital 1.5 goal 55 cc an hour per nutrition's recommendations Lansoprazole 30 mg daily for GI prophylaxis. Continue docusate sodium 100 mg twice daily and senna 8.6 mg twice daily. Patient is on polyethylene glycol 17 g twice daily at home for constipation : Julian catheter for accurate I's and O's in a critically ill patient FEN/RENAL: Acute kidney insufficiency Nephrolithiasis Hypokalemia Hypophosphatemia Hypernatremia - Monitor renal function closely, maintain Julian Free water 300 cc every 4 hours 30 mmol K-Phos IV 1. Recheck in AM ID: E. coli UTI Coag negative staph bacteremia - Continue ceftriaxone for UTI - Repeat blood cultures, vancomycin 1 g 1 11/24 Pertinent cultures 11/26 -CSF -no growth 11/25 -blood cultures 2 -no growth 11/19 -UA -pansensitive E. coli 11/20 -blood cultures 2 -coag negative staph/staph epi pansensitive 11/22 -blood cultures 2 -no growth to date Appreciate infectious disease for further antibiotic coverage HEME: Leukocytosis Normocytic anemia Thrombocytopenia Sickle cell trait? Right subclavian/axillary and brachial DVT. Left cephalic superficial thrombus/ brachial thrombus - Leukocytosis most likely stress related - Monitor CBC daily. Follow trend Upper extremity also revealed bilateral superficial and deep venous thrombus as above DVT GI prophylaxis - Teds SCDs - No pharmacological DVT prophylaxis due to acute ICH. Discuss with neurosurgery today start enoxaparin 40 mg subcu daily at least - Iansoprazole 30 mg by tube daily Critical Care: The total critical care time was 30 minutes. Time to perform other separately billable procedures was not included in the critical care time. Rafael Saldana MD Nov 27, 2017 11:46
[2017-11-27] MEDS: MORPHINE SULFATE ORAL SOLN 10 MG/0.5 ML SYRINGE NG SCH ×3 (12:17→23:24)
[2017-11-27] MEDS: ACETAMINOPHEN 1000 MG/100 ML 100 ML IV PRN (12:17)
[2017-11-27 12:49] LABS: AUTOMATED NEUTROPHIL # 8.6 TH/MM3 (1.8-7.7); BASOPHIL % 0.2 % (0.0-2.0); EOSINOPHIL # 0.2 TH/MM3 (0-0.4); EOSINOPHIL % 1.9 % (0.0-4.0); HEMATOCRIT 25.5 % (35.0-46.0); HEMOGLOBIN 8.4 GM/DL (11.6-15.3); LYMPH % 16.7 % (9.0-44.0); MEAN CORPUSCULAR HEMOGLOBIN 28.5 PG (27.0-34.0); MEAN CORPUSCULAR HGB CONC 33.1 % (32.0-36.0); MONOCYTE # 0.9 TH/MM3 (0-0.9); NEUT % 73.2 % (16.0-70.0); PLATELET COUNT 181 TH/MM3 (150-450); RED BLOOD COUNT 2.96 MIL/MM3 (4.00-5.30); WHITE BLOOD COUNT 11.8 TH/MM3 (4.0-11.0)
[2017-11-27 13:11] LABS: BICARBONATE 31.5 MEQ/L (21.0-32.0); CREATININE 0.89 MG/DL (0.50-1.00); MAGNESIUM 2.9 MG/DL (1.5-2.5); PHOSPHORUS 2.5 MG/DL (2.5-4.9)
--- NOTE | 2017-11-27 14:33 | HHI.IDPN ---
Subjective Subjective Remarks is a 62 y/o CF with PMHx of chronic neck and back pain who is on a morphine intrathecal pump ([facility] is [facility]). Reportedly last refill for pump was 3 months prior to this admission. With this back ground patient presented to the ED with symptoms reportedly thought to be due to morphine withdrawal with shaking limbs, anxiety, abdominal pain and nausea. The pain specialist informed her that she could not refill the pump anymore since the OR was not authorizing this. She has a past medical history significant for chronic neck and back pain with history of cervical and lumbar spine surgeries, COPD, fibromyalgia, celiac disease and anxiety. She was admitted to [facility] for further evaluation where she became suddenly lethargic, aphasic and weak on the right side on 11/20/2017 after the endoscopy for biliary obstruction. ERCP was done for biliary pancreatitis and sphinceterotomy and balloon extraction performed. The CT of the head was done and shows large posterior parietal lobe hemorrhagic stroke with brain edema. She was transferred to the intensive care unit and intubated for an airway protection and started on hyperosmolar therapy. Neurosurgery has been consulted this morning for the cerebral hemorrhage. She was intubated and underwent CL and arterial line placement. On Nov 22, 2017 patient underwent Left parietal craniotomy for intracerebral hematoma evacuation; Left frontal gt hole placement for ventriculostomy; microsurgical technique. Patient has been spiking fevers since 11/22/2017. Urine culture grew E.coli and patient has been treated for possible UTI with ceftriaxone. Patient is on prophylactic Keppra. Patient has had blood cultures that are growing 2 different species of Staph in 2 out of 4 bottles. Repeat blood cultures with no growth thereafter. ID is consulted for evaluation and mment of persistent fevers in a neurosurgery patient. At the time of my evaluation, patient is in the ISC unit. On Levophed 8 mics, UO ok. Not much oral secretions. Remains intubated. Opens eyes spontaneously. No tracking for me. Moves all 4 limbs although right arm is sluggish and she only wiggles her fingers. No rash. No diarrhea. Clinically stable and appears to be getting off pressors. No reported seizures. She has an ICP monitor in place with pressures in acceptable range. Overnight events reviewed. Persistent high-grade fevers noted. Pro calcitonin elevated. Remains on low-dose levo No rash No diarrhea Remains intubated No neurological change noted. Antibiotics Rocephin IV Lines Line sites with no e.o infection Past Medical History reviewed Allergies: Coded Allergies: bupropion (Unverified Allergy, Severe, 05/30/17) diclofenac (Unverified Allergy, Severe, ULCER HX, 05/30/17) erythromycin base (Unverified Allergy, Severe, 05/30/17) etodolac (Unverified Allergy, Severe, ULCER HX, 05/30/17) flurbiprofen (Unverified Allergy, Severe, ULCER HX, 05/30/17) gabapentin (Unverified Allergy, Severe, 05/30/17) gluten (Unverified Allergy, Severe, BLOATING, 05/30/17) ibuprofen (Unverified Allergy, Severe, ULCER HX, 05/30/17) indomethacin (Unverified Allergy, Severe, ULCER HX, 05/30/17) ketoprofen (Unverified Allergy, Severe, ULCER HX, 05/30/17) ketorolac (Unverified Allergy, Severe, ULCER HX, 05/30/17) naproxen (Unverified Allergy, Severe, ULCER HX, 05/30/17) oxaprozin (Unverified Allergy, Severe, ULCER HX, 05/30/17) penicillin G (Unverified Allergy, Severe, 05/30/17) sulfamethoxazole (Unverified Allergy, Severe, 05/30/17) topiramate (Unverified Allergy, Severe, 05/30/17) trimethoprim (Unverified Allergy, Severe, 05/30/17) Objective . Vital Signs Date Time Temp Pulse Resp B/P (MAP) Pulse Ox O2 Delivery O2 Flow Rate FiO2 11/27/17 12:47 14 11/27/17 12:47 14 11/27/17 12:00 40 11/27/17 12:00 118 11/27/17 11:54 100 40 11/27/17 10:00 116 11/27/17 08:21 100 40 11/27/17 08:00 108 11/27/17 08:00 100.8 108 14 103/55 (71) 100 11/27/17 08:00 40 11/27/17 06:00 116 11/27/17 04:00 114 11/27/17 04:00 100.8 114 20 135/67 (89) 100 2/12/18 04:00 100 100 11/27/17 04:00 40 11/27/17 03:59 114 123/66 11/27/17 03:28 100 40 11/27/17 02:00 106 11/27/17 00:05 100 40 11/27/17 00:00 114 11/27/17 00:00 100.4 114 14 116/55 (75) 100 11/27/17 00:00 40 11/26/17 22:00 101 11/26/17 21:03 100 40 11/26/17 20:00 101.1 108 14 93/52 (66) 100 11/26/17 20:00 40 11/26/17 20:00 108 11/26/17 18:00 122 11/26/17 17:43 16 11/26/17 16:00 40 11/26/17 16:00 123 11/26/17 16:00 101.5 125 16 107/56 (73) 100 11/26/17 15:14 100 40 . Laboratory Tests Test 11/26/17 05:40 11/27/17 12:30 White Blood Count 13.3 TH/MM3 11.8 TH/MM3 Red Blood Count 3.12 MIL/MM3 2.96 MIL/MM3 Hemoglobin 8.7 GM/DL 8.4 GM/DL Hematocrit 26.7 % 25.5 % Mean Corpuscular Volume 85.8 FL 86.0 FL Mean Corpuscular Hemoglobin 27.8 PG 28.5 PG Mean Corpuscular Hemoglobin Concent 32.5 % 33.1 % Red Cell Distribution Width 15.9 % 16.0 % Platelet Count 166 TH/MM3 181 TH/MM3 Mean Platelet Volume 9.0 FL 9.0 FL Neutrophils (%) (Auto) 71.9 % 73.2 % Lymphocytes (%) (Auto) 18.2 % 16.7 % Monocytes (%) (Auto) 7.7 % 8.0 % Eosinophils (%) (Auto) 2.0 % 1.9 % Basophils (%) (Auto) 0.2 % 0.2 % Neutrophils # (Auto) 9.6 TH/MM3 8.6 TH/MM3 Lymphocytes # (Auto) 2.4 TH/MM3 2.0 TH/MM3 Monocytes # (Auto) 1.0 TH/MM3 0.9 TH/MM3 Eosinophils # (Auto) 0.3 TH/MM3 0.2 TH/MM3 Basophils # (Auto) 0.0 TH/MM3 0.0 TH/MM3 CBC Comment DIFF FINAL DIFF FINAL Differential Comment Laboratory Tests Test 11/25/17 17:50 11/26/17 01:15 11/26/17 05:40 11/26/17 12:30 Sodium Level 163 MEQ/L 164 MEQ/L 163 MEQ/L 165 MEQ/L Serum Osmolality 343 MOSM/KG 341 MOSM/KG 343 MOSM/KG 342 MOSM/KG Procalcitonin 0.16 ng/mL Blood Urea Nitrogen 20 MG/DL Creatinine 0.93 MG/DL Random Glucose 139 MG/DL Total Protein 5.6 GM/DL Albumin 1.9 GM/DL Calcium Level 9.7 MG/DL Phosphorus Level 2.7 MG/DL Magnesium Level 2.6 MG/DL Alkaline Phosphatase 99 U/L Aspartate Amino Transf (AST/SGOT) 52 U/L Alanine Aminotransferase (ALT/SGPT) 51 U/L Total Bilirubin 0.3 MG/DL Potassium Level 3.8 MEQ/L Chloride Level 130 MEQ/L Carbon Dioxide Level 29.5 MEQ/L Anion Gap 4 MEQ/L Estimat Glomerular Filtration Rate 61 ML/MIN Test 11/26/17 19:00 11/27/17 00:10 11/27/17 06:00 11/27/17 12:30 Sodium Level 164 MEQ/L 164 MEQ/L 164 MEQ/L 164 MEQ/L Serum Osmolality 345 MOSM/KG 347 MOSM/KG 348 MOSM/KG Blood Urea Nitrogen 26 MG/DL Creatinine 0.89 MG/DL Random Glucose 130 MG/DL Calcium Level 10.0 MG/DL Phosphorus Level 2.5 MG/DL Magnesium Level 2.9 MG/DL Potassium Level 3.8 MEQ/L Chloride Level 130 MEQ/L Carbon Dioxide Level 31.5 MEQ/L Anion Gap 3 MEQ/L Estimat Glomerular Filtration Rate 64 ML/MIN Microbiology Date/Time Source Procedure Growth Status 11/25/17 17:50 Blood Line Aerobic Blood Culture - Preliminary NO GROWTH IN 2 DAYS Resulted 11/25/17 17:50 Blood Line Anaerobic Blood Culture - Preliminary NO GROWTH IN 2 DAYS Resulted 11/25/17 16:55 Blood Peripheral Aerobic Blood Culture - Preliminary NO GROWTH IN 2 DAYS Resulted 11/25/17 16:55 Blood Peripheral Anaerobic Blood Culture - Preliminary NO GROWTH IN 2 DAYS Resulted 11/26/17 15:00 Cerebral Spinal Fluid Lumbar Puncture Fungal Smear Pending Received 11/26/17 15:00 Cerebral Spinal Fluid Lumbar Puncture Fungal Culture Pending Received 11/26/17 15:00 Cerebral Spinal Fluid Lumbar Puncture Acid Fast Stain Pending Received 11/26/17 15:00 Cerebral Spinal Fluid Lumbar Puncture Mycobacterial Culture Pending Received 11/26/17 15:00 Cerebral Spinal Fluid Lumbar Puncture Gram Stain - Final Resulted 11/26/17 15:00 Cerebral Spinal Fluid Lumbar Puncture CSF Culture - Preliminary NO GROWTH IN 24 HOURS. Resulted 11/25/17 16:40 Urine Catheterized Urine Urine Culture - Final NO GROWTH IN 48 HOURS. Complete Imaging Last Impressions Chest X-Ray 11/26/17 0600 Signed Impressions: Service Date/Time: Sunday, November 26, 2017 04:57 - CONCLUSION: 1. Mild basilar airspace disease similar to November 25. NG tip in distal esophagus, partially withdrawn since prior exam. Clay Lam MD Upper Extremity Ultrasound 11/25/17 0000 Signed Impressions: Service Date/Time: Saturday, November 25, 2017 18:56 - CONCLUSION: Positive for deep venous thrombosis bilateral extremities, right worse than left. Anurag Carrion MD Lower Extremity Ultrasound 11/25/17 0000 Signed Impressions: Service Date/Time: Saturday, November 25, 2017 17:50 - CONCLUSION: Negative for deep venous thrombosis bilateral lower extremity. Anurag Carrion MD Head CT 11/23/17 0600 Signed Impressions: Service Date/Time: November 05:09 - CONCLUSION: 1. Decreased left parietal region blood products following surgery. There is 7 mm of midline shift compared to 9 mm previously. 2. A left frontal ventricular catheter terminates in the midline and the lateral ventricles. The ventricles are normal in size. Jose Mccartney MD Abdomen/Pelvis CT 11/21/17 0000 Signed Impressions: Service Date/Time: Tuesday, November 21, 2017 21:37 - CONCLUSION: 1. No evidence to indicate pancreatitis. 2. Multiple stones in the gallbladder. 3. Multiple bilateral renal calculi.. 4. No significant changes compared to the prior exam. Meir Donnelly MD GI Procedure 11/20/17 0000 Signed Impressions: Service Date/Time: Monday, November 20, 2017 16:40 - CONCLUSION: ERCP as above. Jose Echevarria MD Physical Exam GENERAL: This is a well-nourished, well-developed patient, in no apparent distress. SKIN: No rash. HEAD: ICP drain and head dressing in place. EYES: Pupils equal round and reactive. No scleral icterus. No injection or drainage. ENT: Intubated. NECK: difficult to assess. CARDIOVASCULAR: HS audible. RESPIRATORY: Clear to auscultation. Breath sounds equal bilaterally. No wheezes , rales, or rhonchi. GASTROINTESTINAL: Abdomen soft, non-tender, nondistended. Pain pump site palpable with no tenderness and no superficial signs of infection. MUSCULOSKELETAL: Extremities without clubbing, cyanosis, or edema. NEUROLOGICAL: Opens eyes spontaneously. Moves LUE, LLE, RLE. RUE with some movts at finger level. Psych could not be assessed. IV line sites with no e.o infection. Assessment & Plan Remarks Fever, tachycardia, Elevated WBC: SIRS possible sepsis. Rule out Meningitis. Source: Pneumonia possible given basilar infiltrates on CXR. Fever persistent: infection, non infectious causes (DVT, Keppra) Bilateral UE DVTs Staph epi bacteremia likely contaminant. Stroke s.p Left parietal craniotomy for intracerebral hematoma evacuation; Left frontal gt hole placement for ventriculostomy; microsurgical technique (2017) Chronic neck and back pain h/o fusion Intra thecal pump presence. On vent Encephalopathy: stroke, infection. Recs: Continue Ceftriaxone IV for now. Will dw CCM if ok with stopping ABX and observe. If any change in clinical condition overnight change to Cefepime plus vanco plus flagyl combo +/- Micafungin. Bilateral UE DVT could be source of fever will defer anticoagulation to Neurosurgery and [facility]. Follow cultures Follow clinically. omar RN No family in room. addendum 11/28/2017 12:50 pm shaq Man: will observe off antibiotics. Fever likely DVT related. If any changes in the interim please call back sooner. Argelia Coleman MD Nov 27, 2017 14:33
[2017-11-27] MEDS: FREE WATER G-TUBE SCH ×3 (14:53→23:24)
[2017-11-27] MEDS: ENOXAPARIN SODIUM 40 MG/0.4 ML SYRINGE SQ SCH (17:19)
[2017-11-28] VITALS (20 sets, daily range): BP systolic 87–129; BP diastolic 45–60; PULSE 86–122; RESP 14–21; TEMP 99.5–101.3; O2SAT 94–100
[2017-11-28] MEDS: RESP: ALBUTEROL 2.5 MG/IPRATROPIUM 0.5 MG NEB (SCH) NEB ×4 (03:31→20:40)
[2017-11-28] MEDS: ACETAMINOPHEN 1000 MG/100 ML 100 ML IV PRN ×2 (04:05→16:53)
[2017-11-28 04:10] LABS: AUTOMATED NEUTROPHIL # 8.3 TH/MM3 (1.8-7.7); BASOPHIL # 0.1 TH/MM3 (0-0.2); BASOPHIL % 0.5 % (0.0-2.0); EOSINOPHIL # 0.5 TH/MM3 (0-0.4); EOSINOPHIL % 3.9 % (0.0-4.0); HEMATOCRIT 23.7 % (35.0-46.0); HEMOGLOBIN 7.9 GM/DL (11.6-15.3); LYMPH % 16.4 % (9.0-44.0); LYMPHOCYTE # 1.9 TH/MM3 (1.0-4.8); MEAN CELL VOLUME 85.5 FL (80.0-100.0); MEAN CORPUSCULAR HEMOGLOBIN 28.6 PG (27.0-34.0); MEAN CORPUSCULAR HGB CONC 33.5 % (32.0-36.0); MEAN PLATELET VOLUME 8.8 FL (7.0-11.0); MONO % 7.2 % (0.0-8.0); MONOCYTE # 0.8 TH/MM3 (0-0.9); PLATELET COUNT 202 TH/MM3 (150-450); RED BLOOD COUNT 2.77 MIL/MM3 (4.00-5.30); RED CELL DISTRIBUTION WIDTH 15.8 % (11.6-17.2); WHITE BLOOD COUNT 11.6 TH/MM3 (4.0-11.0)
[2017-11-28 04:58] LABS: ALBUMIN 1.8 GM/DL (3.4-5.0); ALKALINE PHOSPHATASE 88 U/L (45-117); ALT (GPT) 49 U/L (10-53); AST (GOT) 42 U/L (15-37); BICARBONATE 29.6 MEQ/L (21.0-32.0); BLOOD UREA NITROGEN 29 MG/DL (7-18); CALCIUM 9.2 MG/DL (8.5-10.1); CHLORIDE 130 MEQ/L (98-107); CREATININE 0.94 MG/DL (0.50-1.00); GLOMERULAR FILTRATION RATE 60 ML/MIN (>89); GLUCOSE,RANDOM 137 MG/DL (74-106); MAGNESIUM 2.8 MG/DL (1.5-2.5); PHOSPHORUS 2.1 MG/DL (2.5-4.9); TOTAL BILIRUBIN ADULT 0.2 MG/DL (0.2-1.0); TOTAL PROTEIN 5.9 GM/DL (6.4-8.2)
[2017-11-28 05:08] LABS: SODIUM (NA) 164 MEQ/L (136-145)
[2017-11-28] MEDS: levETIRAcetam INJ 500 MG in SODIUM CHLORIDE 0.9% INJ 100 ML IV SCH ×2 (05:22→17:27)
[2017-11-28] MEDS: MORPHINE SULFATE ORAL SOLN 10 MG/0.5 ML SYRINGE NG SCH ×4 (05:23→23:27)
[2017-11-28] MEDS: FREE WATER G-TUBE SCH ×4 (05:23→23:28)
[2017-11-28] MEDS: ARTIFICIAL TEARS OPTH SOLN 15 ML BTL EACH EYE SCH ×3 (05:23→21:37)
--- NOTE | 2017-11-28 06:01 | RADRPT ---
EXAM DATE/TIME: 11/28/2017 05:05 [place] COMPARISON: CHEST SINGLE AP, November 26, 2017, 4:57. INDICATIONS : Fever. MEDICAL HISTORY : None. SURGICAL HISTORY : None. ENCOUNTER: Subsequent ACUITY: 4 - 6 days PAIN SCORE: Non-responsive. LOCATION: Bilateral chest FINDINGS: Right jugular line tip overlies the SVC. Endotracheal tube and enteric tube again noted. There is pat alen airspace disease at the left lung base. Osseous structures are intact. ACDF hardware overlies the cervical spine. CONCLUSION: Left lower lobe airspace disease again seen. Ariel Nath MD on November 28, 2017 at 5:59 Board Certified Radiologist. This report was verified electronically.
[2017-11-28] MEDS: SODIUM CHLORIDE 0.9% FLUSH 10 ML FLUSH IV FLUSH SCH ×2 (09:00→20:28)
[2017-11-28] MEDS: DOCUSATE SODIUM 100 MG/10 ML UDC PO SCH ×2 (09:05→20:29)
[2017-11-28] MEDS: LANSOPRAZOLE SOLUTAB 30 MG TAB NG SCH (09:05)
[2017-11-28] MEDS: TRIAMCINOLONE ACETONIDE 0.1% CREAM 15 GM TOPICAL SCH ×2 (09:05→20:29)
[2017-11-28] MEDS: cefTRIAXone INJ 1,000 MG in SODIUM CHLORIDE 0.9% INJ 100 ML IV SCH (09:05)
[2017-11-28] MEDS: SENNOSIDES SYRUP 8.8 MG/5 ML CUP NG SCH ×2 (09:07→20:29)
[2017-11-28] MEDS: MORPHINE SULFATE 2 MG/ML INJ IV PUSH PRN ×2 (09:10→14:20)
--- NOTE | 2017-11-28 09:29 | HHI.NSPN ---
(Zack Ramirez) History Chief Complaint: Unable to obtain due to patient's clinical conditon. (Zack Ramirez) Interval History 62-year-old female admitted on 11/19/2017 after she presented to the emergency room with symptoms that seem to be related to morphine withdrawal with the shaking in her lower extremities along with the anxiety abdominal pain and nausea. She has an intrathecal pain pump placed to which the daughter states enters into the cervical and lumbar spine last year with a last pump refill with morphine 3 months ago. The pain specialist informed her that she could not refill the pump anymore since the [place] was not authorizing this. She has a past medical history significant for chronic neck and back pain with history of cervical and lumbar spine surgeries, COPD, fibromyalgia, celiac disease and anxiety. She was admitted to [facility] for further evaluation where she became suddenly lethargic, aphasic and weak on the right side yesterday after the endoscopy for biliary obstruction. The CT of the head was done and shows large posterior parietal lobe hemorrhagic stroke with brain edema. She was transferred to the intensive care unit and intubated for an airway protection and started on hyperosmolar therapy. Neurosurgery has been consulted this morning for the cerebral hemorrhage. 11/22/17: Pt underwent a Left parietal craniotomy for intracerebral hematoma evacuation; Left frontal gt hole placement for ventriculostomy early this morning. Post op assessment done by me reveals she is sedated on Diprivan. Pupils are 3mm bilaterally, reactive bilaterally. Ventriculostomy drain in place at 10cm H20 without drainage or waveform and ICPs read 12. There is air in the line. 11/23/17: Waveform improved yesterday after flushing and again this morning was dampened with air in the ventriculostomy line. This was flushed again using sterile technique with betadine swab at the CSF port and a waveform returned and ICPs are 7. Pt is sedated and intubated. She opens her eyes. Not following commands. 11/24/17: Pt sedated on Diprivan, held and pt starting to open eyes and becomes agitated. Not following commands. Ventriculostomy in place at [id number], ICP 7. 11/27/17: Pts sedation being weaned. Opens eyes slightly spontaneously. Not following commands. Right hemiparesis. 11/28/17: Pt sedation being weaned, on low dose Versed drip. Opens eyes. Gets agitated when stimulated. Right hemiparesis persists. Not following commands for me, pt is likely aphasic also given location of her hemorrhage. (Zack Ramirez) System Review Comments Unable to obtain given pts clinical condition. (Zack Ramirez) Exam Results Vital Signs Date Time Temp Pulse Resp B/P (MAP) Pulse Ox O2 Delivery O2 Flow Rate FiO2 11/28/17 08:32 100 40 11/28/17 06:00 86 11/28/17 04:00 101.3 16 121/59 (79) Intake and Output 11/28/17 11/28/17 11/29/17 08:00 16:00 00:00 Intake Total 1353 ml Output Total 1475 ml Balance -122 ml (Zack Ramirez) Physical Examination GENERAL: Intubated and mechanically ventilated. Sedated on midazolam but being weaned. No apparent distress. HEENT: PERRLA 3 mm brisk. Orally intubated. OGT with TFs at 55ml/hr.. RESP: CTA bilaterally. Intubated. On pressure controlled vent rate 14. Peep 5 HEART: Tachycardic, HR 110s. No murmurs. Norepi drip. ABD: Soft positive bs SKIN: Incision clean and dry. No signs of infection. Pt with skin breakdown forehead without signs of infection. MUSCULOSKELETAL: Moving left-sided extremities spontaneously. Right sided dense paresis. No evident clubbing or deformity. NEUROLOGICAL: Sedation being weaned. Spontaneous right eye opening, left partially. PERRLA 3 mm brisk. (Zack Ramirez) Lab, Micro, Other Results Last Impressions Chest X-Ray 11/28/17 0600 Signed Impressions: Service Date/Time: Tuesday, November 28, 2017 05:05 - CONCLUSION: Left lower lobe airspace disease again seen. Ariel Nath MD Head CT 11/26/17 0000 Signed Impressions: Service Date/Time: Monday, November 27, 2017 04:18 - CONCLUSION: Decreased pneumocephalus, stable intracranial intra-axial extra-axial hemorrhage and left parietal edema, with postsurgical changes and midline shift. Ariel Nath MD Upper Extremity Ultrasound 11/25/17 0000 Signed Impressions: Service Date/Time: Saturday, November 25, 2017 18:56 - CONCLUSION: Positive for deep venous thrombosis bilateral extremities, right worse than left. Anurag Carrion MD Lower Extremity Ultrasound 11/25/17 0000 Signed Impressions: Service Date/Time: Saturday, November 25, 2017 17:50 - CONCLUSION: Negative for deep venous thrombosis bilateral lower extremity. Anurag Carrion MD Abdomen/Pelvis CT 11/21/17 0000 Signed Impressions: Service Date/Time: Tuesday, November 21, 2017 21:37 - CONCLUSION: 1. No evidence to indicate pancreatitis. 2. Multiple stones in the gallbladder. 3. Multiple bilateral renal calculi.. 4. No significant changes compared to the prior exam. Meir Donnelly MD GI Procedure 11/20/17 0000 Signed Impressions: Service Date/Time: Monday, November 20, 2017 16:40 - CONCLUSION: ERCP as above. Jose Echevarria MD Laboratory Tests Test 11/27/17 12:30 11/27/17 20:00 11/27/17 23:40 11/28/17 03:55 White Blood Count 11.8 TH/MM3 11.6 TH/MM3 Red Blood Count 2.96 MIL/MM3 2.77 MIL/MM3 Hemoglobin 8.4 GM/DL 7.9 GM/DL Hematocrit 25.5 % 23.7 % Mean Corpuscular Volume 86.0 FL 85.5 FL Mean Corpuscular Hemoglobin 28.5 PG 28.6 PG Mean Corpuscular Hemoglobin Concent 33.1 % 33.5 % Red Cell Distribution Width 16.0 % 15.8 % Platelet Count 181 TH/MM3 202 TH/MM3 Mean Platelet Volume 9.0 FL 8.8 FL Neutrophils (%) (Auto) 73.2 % 72.0 % Lymphocytes (%) (Auto) 16.7 % 16.4 % Monocytes (%) (Auto) 8.0 % 7.2 % Eosinophils (%) (Auto) 1.9 % 3.9 % Basophils (%) (Auto) 0.2 % 0.5 % Neutrophils # (Auto) 8.6 TH/MM3 8.3 TH/MM3 Lymphocytes # (Auto) 2.0 TH/MM3 1.9 TH/MM3 Monocytes # (Auto) 0.9 TH/MM3 0.8 TH/MM3 Eosinophils # (Auto) 0.2 TH/MM3 0.5 TH/MM3 Basophils # (Auto) 0.0 TH/MM3 0.1 TH/MM3 CBC Comment DIFF FINAL DIFF FINAL Differential Comment Blood Urea Nitrogen 26 MG/DL 29 MG/DL Creatinine 0.89 MG/DL 0.94 MG/DL Random Glucose 130 MG/DL 137 MG/DL Calcium Level 10.0 MG/DL 9.2 MG/DL Phosphorus Level 2.5 MG/DL 2.1 MG/DL Magnesium Level 2.9 MG/DL 2.8 MG/DL Sodium Level 164 MEQ/L 165 MEQ/L 164 MEQ/L Potassium Level 3.8 MEQ/L 3.5 MEQ/L Chloride Level 130 MEQ/L 130 MEQ/L Carbon Dioxide Level 31.5 MEQ/L 29.6 MEQ/L Anion Gap 3 MEQ/L 4 MEQ/L Estimat Glomerular Filtration Rate 64 ML/MIN 60 ML/MIN Serum Osmolality 346 MOSM/KG 347 MOSM/KG 346 MOSM/KG Total Protein 5.9 GM/DL Albumin 1.8 GM/DL Alkaline Phosphatase 88 U/L Aspartate Amino Transf (AST/SGOT) 42 U/L Alanine Aminotransferase (ALT/SGPT) 49 U/L Total Bilirubin 0.2 MG/DL (Zack aRmirez) Medical Decision Making Impression and Plan A: Large left posterior temporal lobe prior low but occipital lobe hemorrhagic stroke with associated moderate mass effect and midline shift. The intracerebral hematoma measures approximately 80 ml. Chronic neck and back pain with intrathecal pump placement which was not refilled due to [facility]. Likely is undergoing opiate withdrawal. Biliary obstruction with jaundice status post ERCP History of COPD Staph epidermidis bacteremia 2 with the urinary tract infection. Pt has since had negative BC. P: Continue with critical care weaning vent. Continue to monitor Neuro exam (Zack Ramirez) Attending Statement The exam, history, and the medical decision-making described in the above note were completed with the assistance of the mid-level provider. I reviewed and agree with the findings presented. I attest that I had a [id number] encounter with the patient on the same day, and personally performed and documented my assessment and findings in the medical record. (Og Womack MD) Zack Ramirez Nov 28, 2017 09:29 Og Womack MD Nov 28, 2017 11:06
[2017-11-28] MEDS ORDERED: POTASSIUM CHLOR 40 MEQ PREMIX 100 ML IV ONE (12:45)
--- NOTE | 2017-11-28 12:53 | HHI.CCPN ---
Subjective Remarks/Hospital Course 62-year-old female with a past medical history significant for chronic pain with morphine pump, fibromyalgia, celiac disease and anxiety presented initially to the hospital for evaluation of leg spasms. The patient reports that she woke up approximately 1 AM and "could not control her legs." Her daughter gave her a 30 mg tablet of morphine to help with her symptoms yet they persisted. She was admitted to [facility] floor for further evaluation where she became suddenly lethargic and weak on the right side. The CT of the head was done immediately and shows large posterior parietal lobe hemorrhagic stroke with brain edema. She was immediately intubated for an airway protection and started on hyperosmolar therapy. 11/22: Patient underwent Left parietal craniotomy for intracerebral hematoma evacuation; Left frontal gt hole placement for ventriculostomy by Dr. Womack. Seen in the ICU immediately postop. Profoundly hypotensive systolic blood pressure initially in the 50s. Stat bolus of LR was ordered by anesthesia. Levophed increased to 12 mcg/min with improvement in systolic blood pressure to 110s. We will place arterial line. Currently patient is under the influence of anesthesia, not moving any extremities 11/23: T-max 101.1. Continues to be febrile. Placing NG tube and Julian catheter. Right upper extremity without movement. Withdraws right lower externally. Spontaneous movement to left upper and lower extremity. Starting on tube feeding. 11/24: Tmax 101.1. Currently. 2 bowel movement overnight. Urine with Escherichia coli/staph epi in blood. Potassium phosphorus been replaced. Hypertonic saline held due to sodium 160+. Very arousable off sedation with ICP is controlled. 11/25: Continues to spike intermittent fevers. Tolerating tube feeding at goal. With persistent fevers we will consult infectious disease. ICPs are well controlled. Sodium remains at 163. 11/26: no significant changes. hyperosmolar therapy continues. peak pressures elevated today into the 40s, but plateau pressure 19, suggestive of a flow restriction. given albuterol neb and changed to PRVC mode from VCV with improvement in peak pressures. 11/27: T-max 101.5. Currently 100.9. Planned ventriculostomy removal today. Will discuss with neurosurgery initiation of of pharmacological treatment for bilateral upper extremity deep venous thrombosis. Tolerating tube feeds goal will be 55 cc an hour Subjective 11/28: Tmax 101.4. Currently afebrile. Currently on enoxaparin 40 mg subcutaneous daily. Will advance to full dose anticoagulation once okay with neurosurgery. Tolerating tube feeds at goal. Objective Vital Signs Date Time Temp Pulse Resp B/P (MAP) Pulse Ox O2 Delivery O2 Flow Rate FiO2 11/28/17 10:50 100 40 11/28/17 10:00 100 11/28/17 08:00 99.5 17 119/58 (78) Intake and Output 11/28/17 11/28/17 11/29/17 08:00 16:00 00:00 Intake Total 1353 ml Output Total 1475 ml Balance -122 ml Result Diagram: 11/28/17 0355 11/28/17 0355 Other Results Microbiology Date/Time Source Procedure Growth Status 11/25/17 17:50 Blood Line Aerobic Blood Culture - Preliminary NO GROWTH IN 3 DAYS Resulted 11/25/17 17:50 Blood Line Anaerobic Blood Culture - Preliminary NO GROWTH IN 3 DAYS Resulted 11/26/17 15:00 Cerebral Spinal Fluid Lumbar Puncture Fungal Smear Pending Received 11/26/17 15:00 Cerebral Spinal Fluid Lumbar Puncture Fungal Culture Pending Received 11/25/17 16:40 Urine Catheterized Urine Urine Culture - Final NO GROWTH IN 48 HOURS. Complete Imaging Last Impressions Chest X-Ray 11/28/17 0600 Signed Impressions: Service Date/Time: Tuesday, November 28, 2017 05:05 - CONCLUSION: Left lower lobe airspace disease again seen. Ariel Nath MD Head CT 11/26/17 0000 Signed Impressions: Service Date/Time: Monday, November 27, 2017 04:18 - CONCLUSION: Decreased pneumocephalus, stable intracranial intra-axial extra-axial hemorrhage and left parietal edema, with postsurgical changes and midline shift. Ariel Nath MD Upper Extremity Ultrasound 11/25/17 0000 Signed Impressions: Service Date/Time: Saturday, November 25, 2017 18:56 - CONCLUSION: Positive for deep venous thrombosis bilateral extremities, right worse than left. Anurag Carrion MD Lower Extremity Ultrasound 11/25/17 0000 Signed Impressions: Service Date/Time: Saturday, November 25, 2017 17:50 - CONCLUSION: Negative for deep venous thrombosis bilateral lower extremity. Anurag Carrion MD Abdomen/Pelvis CT 11/21/17 0000 Signed Impressions: Service Date/Time: Tuesday, November 21, 2017 21:37 - CONCLUSION: 1. No evidence to indicate pancreatitis. 2. Multiple stones in the gallbladder. 3. Multiple bilateral renal calculi.. 4. No significant changes compared to the prior exam. Meir Donnelly MD GI Procedure 11/20/17 0000 Signed Impressions: Service Date/Time: Monday, November 20, 2017 16:40 - CONCLUSION: ERCP as above. Jose Echevarria MD Objective Remarks GENERAL: 64-year-old female currently orotracheally intubated SKIN: Warm and dry. HEAD: Circumferential craniotomy dressing in place and left frontal EVD in place EYES: No scleral icterus. No injection or drainage. Pupils bilaterally 4 mm sluggish ENT: Orotracheally intubated. No thrush NECK: Supple, trachea midline. No JVD. Right IJ CVL is clean dry and intact CARDIOVASCULAR: Regular rate and rhythm without murmurs, gallops, or rubs. RESPIRATORY: Breath sounds equal bilaterally. No accessory muscle use. no wheezing. good air entry. GASTROINTESTINAL: Abdomen soft, non-tender, nondistended. Subcutaneous morphine pump in the right upper quadrant without mottling MUSCULOSKELETAL: Bilateral upper extremity edema NEURO EXAM: Patient is intubated, sedated. pupils equal, round, reactive. No withdrawal in any extremities no movement right upper extremity. Withdraws to pain right lower extremity. Spontaneous moving left upper and lower extremity. Nods head to simple answers appropriately. Vascular Central Line Catheter: Yes Assessment to: Continue Date of Insertion: Nov 22, 2017 Line: Central Venous Catheter Side: Right Location: Internal, Jugular A/P Assessment and Plan NEURO/PSYCH: Large acute intraparenchymal hemorrhage involving the left parietal lobe Midline shift to the right by 9 mm Bonilla tip barachnoid hemorrhage and cerebral edema on the left side Depression/anxiety Chronic pain on Morphine pump Chronic opioid use [place] History of C-spine fusion Status post left parietal craniotomy for intracerebral hematoma evacuation, Left frontal gt hole placement for ventriculostomy by Dr. Womack. Left ventric removed 11/27 - 3% sodium chloride infusion, target Na 150-155 currently on hold is currently 164 - Received 1 g of levetiracetam. Currently at 500 mg IV every 12 -Propofol switched to midazolam drip currently on sedation vacation Holding buspirone 30 mg twice daily and venlafaxine 50 mg twice daily for depression/anxiety. Resume when clinically indicated Holding acetaminophen/hydrocodone 325/7.51 tab every 6 hours as needed pain Holding scheduled morphine sulfate 30 mg every 12 hours Morphine liquid 10 mg every 6 hours scheduled with 1-2 mg every 3 hours as needed pain 1 through 10 Acetaminophen as needed for fever RESP: Acute respiratory failure Ongoing tobaccoism COPD - Intubated for an airway protection PRVC 14/550/10/20/39 PSV trials daily as tolerated Ventilator bundle Albuterol/ipratropium aerosols every 6 hours with albuterol aerosols every 2 hours as needed dyspnea Tobacco cessation booklet provided with appropriate CVS: Hypotension/shock Mild lactic acidosis History of hypertension -Currently off norepinephrine target map above 65 CPP 50-70. - 3% saline currently on hold with sodium currently 164 - Hold metoprolol and lisinopril while on vasopressors GI: Acute pancreatitis - resolved Opioid-induced constipation Cholelithiasis History of celiac disease 11/21/17 s/p ERCP with sphincterotomy and balloon extraction, finding choledocholithiasis. increase 0.8. tumor markers WNL. lipase WNL. WBC significant increase today, appears diaphoretic. tachycardic. GI signed off Continue tube feedings with vital 1.5 goal 55 cc an hour per nutrition's recommendations Lansoprazole 30 mg daily for GI prophylaxis. Continue docusate sodium 100 mg twice daily and senna 8.6 mg twice daily. Patient is on polyethylene glycol 17 g twice daily at home for constipation : Julian catheter for accurate I's and O's in a critically ill patient FEN/RENAL: Acute kidney insufficiency Nephrolithiasis Hypokalemia Hypophosphatemia Hypernatremia - Monitor renal function closely, maintain Julian Free water 300 cc every 4 hours with one quarter normal saline 2 L 15 mmol K-Phos IV 1. Recheck in AM ID: E. coli UTI Coag negative staph bacteremia hold ceftriaxone - Repeat blood cultures, vancomycin 1 g 1 11/24 Pertinent cultures 11/26 -CSF -no growth 11/25 -blood cultures 2 -no growth 11/19 -UA -pansensitive E. coli 11/20 -blood cultures 2 -coag negative staph/staph epi pansensitive 11/22 -blood cultures 2 -no growth to date Appreciate infectious disease for further antibiotic coverage HEME: Leukocytosis Normocytic anemia Sickle cell trait? Right subclavian/axillary and brachial DVT. Left cephalic superficial thrombus/ brachial thrombus - Leukocytosis most likely stress related - Monitor CBC daily. Follow trend Upper extremity also revealed bilateral superficial and deep venous thrombus as above DVT GI prophylaxis - Teds SCDs - No pharmacological DVT prophylaxis due to acute ICH. Discuss with neurosurgery 11/27 start enoxaparin 40 mg subcu daily at least - Iansoprazole 30 mg by tube daily Critical Care: The total critical care time was 30 minutes. Time to perform other separately billable procedures was not included in the critical care time. Rafael Saldana MD Nov 28, 2017 12:53
[2017-11-28] MEDS ORDERED: SODIUM CHLORIDE 23.4% INJ 38.5 MEQ in WATER STERILE FOR INJ 1,000 ML IV SCH (14:00)
[2017-11-28] MEDS ORDERED: POTASSIUM PHOSPHATE INJ 15 MMOL in SODIUM CHLORIDE 0.9% INJ 150 ML IV ONE (15:00)
[2017-11-28] MEDS: ENOXAPARIN SODIUM 40 MG/0.4 ML SYRINGE SQ SCH (15:32)
[2017-11-28] MEDS ORDERED: FREE WATER G-TUBE SCH (16:00)
[2017-11-28] MEDS: MORPHINE SULFATE 4 MG/ML INJ IV PUSH PRN ×2 (16:20→20:10)
[2017-11-29] VITALS (16 sets, daily range): BP systolic 90–129; BP diastolic 49–65; PULSE 100–122; RESP 17–22; TEMP 99.9–101.5; O2SAT 97–100
[2017-11-29] MEDS: MORPHINE SULFATE 4 MG/ML INJ IV PUSH PRN ×2 (00:07→03:10)
[2017-11-29] MEDS: RESP: ALBUTEROL 2.5 MG/IPRATROPIUM 0.5 MG NEB (SCH) NEB ×4 (03:34→20:59)
[2017-11-29] MEDS: levETIRAcetam INJ 500 MG in SODIUM CHLORIDE 0.9% INJ 100 ML IV SCH ×2 (04:35→18:41)
[2017-11-29] MEDS: MORPHINE SULFATE ORAL SOLN 10 MG/0.5 ML SYRINGE NG SCH ×4 (05:07→21:12)
[2017-11-29] MEDS: FREE WATER G-TUBE SCH ×3 (05:08→18:42)
[2017-11-29] MEDS: ARTIFICIAL TEARS OPTH SOLN 15 ML BTL EACH EYE SCH ×3 (05:08→22:32)
[2017-11-29] MEDS: TRIAMCINOLONE ACETONIDE 0.1% CREAM 15 GM TOPICAL SCH ×2 (09:00→21:12)
[2017-11-29] MEDS: SODIUM CHLORIDE 0.9% FLUSH 10 ML FLUSH IV FLUSH SCH ×2 (09:00→21:11)
[2017-11-29] MEDS: LANSOPRAZOLE SOLUTAB 30 MG TAB NG SCH (09:15)
[2017-11-29] MEDS: DOCUSATE SODIUM 100 MG/10 ML UDC PO SCH ×2 (09:15→21:11)
[2017-11-29] MEDS: SENNOSIDES SYRUP 8.8 MG/5 ML CUP NG SCH ×2 (09:15→21:13)
--- NOTE | 2017-11-29 09:35 | HHI.NSPN ---
History Chief Complaint: ICH s/p left crani for evacuation. Interval History 62-year-old female admitted on 11/19/2017 after she presented to the emergency room with symptoms that seem to be related to morphine withdrawal with the shaking in her lower extremities along with the anxiety abdominal pain and nausea. She has an intrathecal pain pump placed to which the daughter states enters into the cervical and lumbar spine last year with a last pump refill with morphine 3 months ago. The pain specialist informed her that she could not refill the pump anymore since the DC was not authorizing this. She has a past medical history significant for chronic neck and back pain with history of cervical and lumbar spine surgeries, COPD, fibromyalgia, celiac disease and anxiety. She was admitted to [facility] for further evaluation where she became suddenly lethargic, aphasic and weak on the right side yesterday after the endoscopy for biliary obstruction. The CT of the head was done and shows large posterior parietal lobe hemorrhagic stroke with brain edema. She was transferred to the intensive care unit and intubated for an airway protection and started on hyperosmolar therapy. Neurosurgery has been consulted this morning for the cerebral hemorrhage. 11/22/17: Pt underwent a Left parietal craniotomy for intracerebral hematoma evacuation; Left frontal gt hole placement for ventriculostomy early this morning. Post op assessment done by me reveals she is sedated on Diprivan. Pupils are 3mm bilaterally, reactive bilaterally. Ventriculostomy drain in place at 10cm H20 without drainage or waveform and ICPs read 12. There is air in the line. 11/23/17: Waveform improved yesterday after flushing and again this morning was dampened with air in the ventriculostomy line. This was flushed again using sterile technique with betadine swab at the CSF port and a waveform returned and ICPs are 7. Pt is sedated and intubated. She opens her eyes. Not following commands. 11/24/17: Pt sedated on Diprivan, held and pt starting to open eyes and becomes agitated. Not following commands. Ventriculostomy in place at [id number], ICP 7. 11/27/17: Pts sedation being weaned. Opens eyes slightly spontaneously. Not following commands. Right hemiparesis. 11/28/17: Pt sedation being weaned, on low dose Versed drip. Opens eyes. Gets agitated when stimulated. Right hemiparesis persists. Not following commands for me, pt is likely aphasic also given location of her hemorrhage. 11/29/17: Pt more awake today. She follows commands. Intubated. Pupils 3mm bilaterally. RUE with dense paresis, some movement in RLE more proximally than distally. System Review Comments Not able to obtain. Exam Results Vital Signs Date Time Temp Pulse Resp B/P (MAP) Pulse Ox O2 Delivery O2 Flow Rate FiO2 11/29/17 08:00 120 11/29/17 08:00 99.9 18 90/49 (63) 97 11/29/17 08:00 40 Intake and Output 11/29/17 11/29/17 11/30/17 08:00 16:00 00:00 Intake Total 1943 ml Output Total 1575 ml Balance 368 ml Physical Examination GENERAL: Intubated and mechanically ventilated. No apparent distress. HEENT: PERRLA 3 mm brisk. Orally intubated. OGT with TFs at 55ml/hr.. RESP: CTA bilaterally. Intubated. HEART: Tachycardic, HR 120s. No murmurs. ABD: Soft positive bs SKIN: Incision clean and dry. No signs of infection. Pt with skin breakdown forehead without signs of infection. MUSCULOSKELETAL: Moving left-sided extremities spontaneously and to command. Right upper extremity dense paresis, some movement in RLE proximally more than distally. NEUROLOGICAL: Pt off sedation this morning. Pt more awake. Spontaneous opening eyes. PERRLA 3 mm brisk. Following commands. Moving left-sided extremities spontaneously and to command. Right upper extremity dense paresis, some movement in RLE proximally more than distally. Lab, Micro, Other Results Last Impressions Chest X-Ray 11/28/17 0600 Signed Impressions: Service Date/Time: Tuesday, November 28, 2017 05:05 - CONCLUSION: Left lower lobe airspace disease again seen. Ariel Nath MD Head CT 11/26/17 0000 Signed Impressions: Service Date/Time: Monday, November 27, 2017 04:18 - CONCLUSION: Decreased pneumocephalus, stable intracranial intra-axial extra-axial hemorrhage and left parietal edema, with postsurgical changes and midline shift. Ariel Nath MD Upper Extremity Ultrasound 11/25/17 0000 Signed Impressions: Service Date/Time: Saturday, November 25, 2017 18:56 - CONCLUSION: Positive for deep venous thrombosis bilateral extremities, right worse than left. Anurag Carrion MD Lower Extremity Ultrasound 11/25/17 0000 Signed Impressions: Service Date/Time: Saturday, November 25, 2017 17:50 - CONCLUSION: Negative for deep venous thrombosis bilateral lower extremity. Anurag Carrion MD Abdomen/Pelvis CT 11/21/17 0000 Signed Impressions: Service Date/Time: Tuesday, November 21, 2017 21:37 - CONCLUSION: 1. No evidence to indicate pancreatitis. 2. Multiple stones in the gallbladder. 3. Multiple bilateral renal calculi.. 4. No significant changes compared to the prior exam. Meir Donnelly MD GI Procedure 11/20/17 0000 Signed Impressions: Service Date/Time: Monday, November 20, 2017 16:40 - CONCLUSION: ERCP as above. Jose Echevarria MD Laboratory Tests Test 11/28/17 12:00 11/28/17 17:35 11/28/17 23:45 11/29/17 04:45 Sodium Level 158 MEQ/L 155 MEQ/L 156 MEQ/L Serum Osmolality 336 MOSM/KG 332 MOSM/KG 329 MOSM/KG 327 MOSM/KG Medical Decision Making Impression and Plan A: Large left posterior temporal lobe prior low but occipital lobe hemorrhagic stroke with associated moderate mass effect and midline shift. Chronic neck and back pain with intrathecal pump placement which was not refilled due to [facility] of [facility]. Likely is undergoing opiate withdrawal. Biliary obstruction with jaundice status post ERCP History of COPD Staph epidermidis bacteremia 2 with the urinary tract infection. Pt has since had negative BC. P: Continue with critical care weaning vent. Continue to monitor Neuro exam Continue with rehab efforts. Zack Ramirez Nov 29, 2017 9:35 am
--- NOTE | 2017-11-29 10:49 | HHI.CCPN ---
Subjective Remarks/Hospital Course 62-year-old female with a past medical history significant for chronic pain with morphine pump, fibromyalgia, celiac disease and anxiety presented initially to the hospital for evaluation of leg spasms. The patient reports that she woke up approximately 1 AM and "could not control her legs." Her daughter gave her a 30 mg tablet of morphine to help with her symptoms yet they persisted. She was admitted to [facility] floor for further evaluation where she became suddenly lethargic and weak on the right side. The CT of the head was done immediately and shows large posterior parietal lobe hemorrhagic stroke with brain edema. She was immediately intubated for an airway protection and started on hyperosmolar therapy. 11/22: Patient underwent Left parietal craniotomy for intracerebral hematoma evacuation; Left frontal gt hole placement for ventriculostomy by Dr. Womack. Seen in the ICU immediately postop. Profoundly hypotensive systolic blood pressure initially in the 50s. Stat bolus of LR was ordered by anesthesia. Levophed increased to 12 mcg/min with improvement in systolic blood pressure to 110s. We will place arterial line. Currently patient is under the influence of anesthesia, not moving any extremities 11/23: T-max 101.1. Continues to be febrile. Placing NG tube and Julian catheter. Right upper extremity without movement. Withdraws right lower externally. Spontaneous movement to left upper and lower extremity. Starting on tube feeding. 11/24: Tmax 101.1. Currently. 2 bowel movement overnight. Urine with Escherichia coli/staph epi in blood. Potassium phosphorus been replaced. Hypertonic saline held due to sodium 160+. Very arousable off sedation with ICP is controlled. 11/25: Continues to spike intermittent fevers. Tolerating tube feeding at goal. With persistent fevers we will consult infectious disease. ICPs are well controlled. Sodium remains at 163. 11/26: no significant changes. hyperosmolar therapy continues. peak pressures elevated today into the 40s, but plateau pressure 19, suggestive of a flow restriction. given albuterol neb and changed to PRVC mode from VCV with improvement in peak pressures. 11/27: T-max 101.5. Currently 100.9. Planned ventriculostomy removal today. Will discuss with neurosurgery initiation of of pharmacological treatment for bilateral upper extremity deep venous thrombosis. Tolerating tube feeds goal will be 55 cc an hour 11/28: Tmax 101.4. Currently afebrile. Currently on enoxaparin 40 mg subcutaneous daily. Will advance to full dose anticoagulation once okay with neurosurgery. Tolerating tube feeds at goal. Subjective 11/29: Tmax 101.1. Currently 99.9. Resting in bed in no distress. Tolerating tube feeds. Objective Vital Signs Date Time Temp Pulse Resp B/P (MAP) Pulse Ox O2 Delivery O2 Flow Rate FiO2 11/29/17 10:00 122 11/29/17 09:31 40 11/29/17 09:31 100 11/29/17 08:00 99.9 18 90/49 (63) Intake and Output 11/29/17 11/29/17 11/30/17 08:00 16:00 00:00 Intake Total 1943 ml Output Total 1575 ml Balance 368 ml Result Diagram: 11/28/17 0355 11/29/17 0445 Other Results Microbiology Date/Time Source Procedure Growth Status 11/25/17 17:50 Blood Line Aerobic Blood Culture - Preliminary NO GROWTH IN 3 DAYS Resulted 11/25/17 17:50 Blood Line Anaerobic Blood Culture - Preliminary NO GROWTH IN 3 DAYS Resulted 11/26/17 15:00 Cerebral Spinal Fluid Lumbar Puncture Fungal Smear - Final NO FUNGAL ELEMENTS SEEN. Resulted 11/26/17 15:00 Cerebral Spinal Fluid Lumbar Puncture Fungal Culture Pending Resulted 11/25/17 16:40 Urine Catheterized Urine Urine Culture - Final NO GROWTH IN 48 HOURS. Complete Imaging Last Impressions Chest X-Ray 11/28/17 0600 Signed Impressions: Service Date/Time: Tuesday, November 28, 2017 05:05 - CONCLUSION: Left lower lobe airspace disease again seen. Ariel Nath MD Head CT 11/26/17 0000 Signed Impressions: Service Date/Time: Monday, November 27, 2017 04:18 - CONCLUSION: Decreased pneumocephalus, stable intracranial intra-axial extra-axial hemorrhage and left parietal edema, with postsurgical changes and midline shift. Ariel Nath MD Upper Extremity Ultrasound 11/25/17 0000 Signed Impressions: Service Date/Time: Saturday, November 25, 2017 18:56 - CONCLUSION: Positive for deep venous thrombosis bilateral extremities, right worse than left. Anurag Carrion MD Lower Extremity Ultrasound 11/25/17 0000 Signed Impressions: Service Date/Time: Saturday, November 25, 2017 17:50 - CONCLUSION: Negative for deep venous thrombosis bilateral lower extremity. Anurag Carrion MD Abdomen/Pelvis CT 11/21/17 0000 Signed Impressions: Service Date/Time: Tuesday, November 21, 2017 21:37 - CONCLUSION: 1. No evidence to indicate pancreatitis. 2. Multiple stones in the gallbladder. 3. Multiple bilateral renal calculi.. 4. No significant changes compared to the prior exam. Meir Donnelly MD GI Procedure 11/20/17 0000 Signed Impressions: Service Date/Time: Monday, November 20, 2017 16:40 - CONCLUSION: ERCP as above. Jose Echevarria MD Objective Remarks GENERAL: 64-year-old female currently orotracheally intubated SKIN: Warm and dry. HEAD: Circumferential craniotomy dressing in place and left frontal EVD in place EYES: No scleral icterus. No injection or drainage. Pupils bilaterally 4 mm sluggish ENT: Orotracheally intubated. No thrush NECK: Supple, trachea midline. No JVD. Right IJ CVL is clean dry and intact CARDIOVASCULAR: Regular rate and rhythm without murmurs, gallops, or rubs. RESPIRATORY: Breath sounds equal bilaterally. No accessory muscle use. no wheezing. good air entry. GASTROINTESTINAL: Abdomen soft, non-tender, nondistended. Subcutaneous morphine pump in the right upper quadrant without mottling MUSCULOSKELETAL: Bilateral upper extremity edema NEURO EXAM: Patient is intubated, sedated. pupils equal, round, reactive. No withdrawal in any extremities no movement right upper extremity. Withdraws to pain right lower extremity. Spontaneous moving left upper and lower extremity. Nods head to simple answers appropriately. Vascular Central Line Catheter: Yes Assessment to: Continue Date of Insertion: Nov 22, 2017 Line: Central Venous Catheter Side: Right Location: Internal, Jugular A/P Assessment and Plan NEURO/PSYCH: Large acute intraparenchymal hemorrhage involving the left parietal lobe Midline shift to the right by 9 mm Bonilla tip barachnoid hemorrhage and cerebral edema on the left side Depression/anxiety Chronic pain on Morphine pump Chronic opioid use [facility] History of C-spine fusion Status post left parietal craniotomy for intracerebral hematoma evacuation, Left frontal gt hole placement for ventriculostomy by Dr. Womack. Left ventric removed 11/27 - 3% sodium chloride infusion, target Na 150-155 currently on hold is currently 164 - Received 1 g of levetiracetam. Currently at 500 mg IV every 12 -Propofol switched to midazolam drip currently on sedation vacation Holding buspirone 30 mg twice daily and venlafaxine 50 mg twice daily for depression/anxiety. Resume when clinically indicated Holding acetaminophen/hydrocodone 325/7.51 tab every 6 hours as needed pain Holding scheduled morphine sulfate 30 mg every 12 hours Morphine liquid 10 mg every 6 hours scheduled with 1-2 mg every 3 hours as needed pain 1 through 10 Acetaminophen as needed for fever RESP: Acute respiratory failure Ongoing tobaccoism COPD - Intubated for an airway protection [facility] 14/550/10/20/39 PSV trials daily as tolerated Ventilator bundle Albuterol/ipratropium aerosols every 6 hours with albuterol aerosols every 2 hours as needed dyspnea Tobacco cessation booklet provided with appropriate CVS: Hypotension/shock Mild lactic acidosis History of hypertension -Currently off norepinephrine target map above 65 CPP 50-70. - 3% saline currently on hold with sodium currently 164 - Hold metoprolol and lisinopril while on vasopressors GI: Acute pancreatitis - resolved Opioid-induced constipation Cholelithiasis History of celiac disease 11/21/17 s/p ERCP with sphincterotomy and balloon extraction, finding choledocholithiasis. increase 0.8. tumor markers WNL. lipase WNL. WBC significant increase today, appears diaphoretic. tachycardic. GI signed off Continue tube feedings with vital 1.5 goal 55 cc an hour per nutrition's recommendations Lansoprazole 30 mg daily for GI prophylaxis. Continue docusate sodium 100 mg twice daily and senna 8.6 mg twice daily. Patient is on polyethylene glycol 17 g twice daily at home for constipation : Julian catheter for accurate I's and O's in a critically ill patient FEN/RENAL: Acute kidney insufficiency Nephrolithiasis Hypokalemia Hypophosphatemia Hypernatremia - Monitor renal function closely, maintain Julian Free water 300 cc every 4 hours with one quarter normal saline 2 L 15 mmol K-Phos IV 1. Recheck in AM ID: E. coli UTI Coag negative staph bacteremia hold ceftriaxone per infectious disease Pertinent cultures 11/26 -CSF -no growth 11/25 -blood cultures 2 -no growth 11/19 -UA -pansensitive E. coli 2/5 -blood cultures 2 -coag negative staph/staph epi pansensitive 11/22 -blood cultures 2 -no growth to date Appreciate infectious disease for further antibiotic coverage HEME: Leukocytosis Normocytic anemia Sickle cell trait? Right subclavian/axillary and brachial DVT. Left cephalic superficial thrombus/ brachial thrombus - Leukocytosis most likely stress related - Monitor CBC daily. Follow trend Upper extremity also revealed bilateral superficial and deep venous thrombus as above DVT GI prophylaxis - Teds SCDs - No pharmacological DVT prophylaxis due to acute ICH. Discuss with neurosurgery 11/27 start enoxaparin 40 mg subcu daily at least - Iansoprazole 30 mg by tube daily Critical Care: The total critical care time was 30 minutes. Time to perform other separately billable procedures was not included in the critical care time. Rafael Saldana MD Nov 29, 2017 10:49
[2017-11-29] MEDS: MORPHINE SULFATE 2 MG/ML INJ IV PUSH PRN ×2 (11:38→12:43)
[2017-11-29] MEDS ORDERED: LACTULOSE SYRUP 20 GM/30 ML CUP PO ONE (13:30)
[2017-11-29] MEDS ORDERED: ALTEPLASE RECOMBINANT 2 MG VIAL INTRACATH ONE (14:15)
[2017-11-29] MEDS ORDERED: MORPHINE SULFATE 4 MG/ML INJ IV PUSH PRN (15:15)
[2017-11-29] MEDS ORDERED: MORPHINE SULFATE 2 MG/ML INJ IV PUSH PRN (15:15)
[2017-11-29 15:35] LABS: HEMATOCRIT 22.5 % (35.0-46.0); HEMOGLOBIN 7.6 GM/DL (11.6-15.3); MEAN CELL VOLUME 85.1 FL (80.0-100.0); MEAN CORPUSCULAR HEMOGLOBIN 28.8 PG (27.0-34.0); MEAN CORPUSCULAR HGB CONC 33.8 % (32.0-36.0); MEAN PLATELET VOLUME 9.8 FL (7.0-11.0); PLATELET COUNT 213 TH/MM3 (150-450); RED BLOOD COUNT 2.65 MIL/MM3 (4.00-5.30); RED CELL DISTRIBUTION WIDTH 15.3 % (11.6-17.2); WHITE BLOOD COUNT 12.8 TH/MM3 (4.0-11.0)
[2017-11-29 15:42] LABS: BICARBONATE 26.9 MEQ/L (21.0-32.0); CREATININE 0.86 MG/DL (0.50-1.00)
[2017-11-29] MEDS: ENOXAPARIN SODIUM 40 MG/0.4 ML SYRINGE SQ SCH (16:44)
[2017-11-29] MEDS ORDERED: POTASSIUM CHLORIDE 20 MEQ PWD PACKET NG ONE (17:15)
[2017-11-29] MEDS: POLYETHYLENE GLYCOL 17 GM PKG NG SCH (21:10)
[2017-11-30] VITALS (18 sets, daily range): BP systolic 86–131; BP diastolic 47–76; PULSE 72–114; RESP 20–24; TEMP 98.8–99.7; O2SAT 94–100
[2017-11-30] MEDS: MORPHINE SULFATE ORAL SOLN 10 MG/0.5 ML SYRINGE NG SCH ×6 (01:49→21:08)
[2017-11-30] MEDS: MIDAZOLAM 100 MG/100 ML INJ 100 ML IV PRN (02:03)
[2017-11-30] MEDS: RESP: ALBUTEROL 2.5 MG/IPRATROPIUM 0.5 MG NEB (SCH) NEB ×3 (03:58→21:52)
[2017-11-30 04:18] LABS: AUTOMATED NEUTROPHIL # 9.2 TH/MM3 (1.8-7.7); BASOPHIL # 0.1 TH/MM3 (0-0.2); BASOPHIL % 0.5 % (0.0-2.0); EOSINOPHIL # 0.3 TH/MM3 (0-0.4); EOSINOPHIL % 2.7 % (0.0-4.0); HEMATOCRIT 23.9 % (35.0-46.0); HEMOGLOBIN 7.8 GM/DL (11.6-15.3); LYMPH % 15.3 % (9.0-44.0); LYMPHOCYTE # 1.9 TH/MM3 (1.0-4.8); MEAN CELL VOLUME 84.6 FL (80.0-100.0); MEAN CORPUSCULAR HEMOGLOBIN 27.5 PG (27.0-34.0); MEAN CORPUSCULAR HGB CONC 32.5 % (32.0-36.0); MEAN PLATELET VOLUME 9.4 FL (7.0-11.0); MONOCYTE # 0.7 TH/MM3 (0-0.9); NEUT % 75.5 % (16.0-70.0); PLATELET COUNT 284 TH/MM3 (150-450); RED BLOOD COUNT 2.82 MIL/MM3 (4.00-5.30); RED CELL DISTRIBUTION WIDTH 15.2 % (11.6-17.2); WHITE BLOOD COUNT 12.2 TH/MM3 (4.0-11.0)
[2017-11-30 04:50] LABS: ALBUMIN 1.9 GM/DL (3.4-5.0); AST (GOT) 53 U/L (15-37); BICARBONATE 25.5 MEQ/L (21.0-32.0); BLOOD UREA NITROGEN 23 MG/DL (7-18); CALCIUM 9.4 MG/DL (8.5-10.1); CHLORIDE 121 MEQ/L (98-107); CREATININE 0.89 MG/DL (0.50-1.00); GLOMERULAR FILTRATION RATE 64 ML/MIN (>89); GLUCOSE,RANDOM 120 MG/DL (74-106); MAGNESIUM 2.9 MG/DL (1.5-2.5); SODIUM (NA) 153 MEQ/L (136-145)
[2017-11-30 04:53] LABS: ALKALINE PHOSPHATASE 90 U/L (45-117); ALT (GPT) 64 U/L (10-53); PHOSPHORUS 3.1 MG/DL (2.5-4.9); TOTAL BILIRUBIN ADULT 0.3 MG/DL (0.2-1.0); TOTAL PROTEIN 6.2 GM/DL (6.4-8.2)
[2017-11-30] MEDS: levETIRAcetam INJ 500 MG in SODIUM CHLORIDE 0.9% INJ 100 ML IV SCH ×2 (05:43→15:53)
[2017-11-30] MEDS: ARTIFICIAL TEARS OPTH SOLN 15 ML BTL EACH EYE SCH ×3 (06:46→22:20)
[2017-11-30] MEDS: FREE WATER G-TUBE SCH ×4 (06:47→22:21)
[2017-11-30] MEDS ORDERED: POTASSIUM CHLORIDE 20 MEQ PWD PACKET NG ONE (07:30)
[2017-11-30] MEDS ORDERED: ROCURONIUM INJ 50 MG/5 ML VIAL ONE (08:24)
--- NOTE | 2017-11-30 08:44 | PD.PROCEDR ---
Central Line Procedure REASON FOR PROCEDURE Central venous access PROCEDURE PERFORMED Central line placement: Left internal jugular CVL CONSENT Informed consent for procedure was obtained. The risks and benefits of the procedure were discussed to include but limited to bleeding, clot formation, infection, and even . ANESTHESIA Local injection of 1% Lidocaine DESCRIPTION OF THE PROCEDURE The patient was placed in supine, mild Trendelenburg position. The area was exposed and cleansed with ChloraPrep, times two. Large sterile drape was used to cover the patient, with the site exposed, under sterile conditions including cap, face mask, sterile gown, and sterile gloves. On single attempt, the introducer needle was inserted with negative pressure in syringe and venous flash was obtained. The guide wire was then advanced without any restriction and the needle was removed. The dilator was used without any complications. Using Seldinger technique the antibiotic coated triple-lumen catheter was advanced over the guide wire to a depth of 20 centimeters. The guide wire was removed. All ports were aspirated with dark venous blood return and flushed easily with sterile saline. All ports were capped. Antibiotic disc was placed around central line at puncture site. The central line was secured to the skin with two interrupted 2.0 silk sutures. The area was bandaged with sterile see- through central line bandage. RADIOLOGICAL DATA Ultrasound guidance was used to locate left internal jugular vein. Doppler/ color flow was used to confirm venous flow. COMPLICATIONS: No apparent complications ESTIMATED BLOOD LOSS: Less than 1 cc. Rafael Saldana MD Nov 30, 2017 08:44
[2017-11-30] MEDS ORDERED: SODIUM CHLORIDE 0.9% FLUSH 10 ML FLUSH IV FLUSH PRN (08:45)
[2017-11-30] MEDS ORDERED: ROCURONIUM INJ 50 MG/5 ML VIAL IV ONE (08:45)
[2017-11-30] MEDS ORDERED: MIDAZOLAM HCL 5 MG/ML VIAL (1 ML) IV PUSH ONE (08:45)
--- NOTE | 2017-11-30 08:47 | HHI.CCPN ---
Subjective Remarks/Hospital Course 62-year-old female with a past medical history significant for chronic pain with morphine pump, fibromyalgia, celiac disease and anxiety presented initially to the hospital for evaluation of leg spasms. The patient reports that she woke up approximately 1 AM and "could not control her legs." Her daughter gave her a 30 mg tablet of morphine to help with her symptoms yet they persisted. She was admitted [facility] floor for further evaluation where she became suddenly lethargic and weak on the right side. The CT of the head was done immediately and shows large posterior parietal lobe hemorrhagic stroke with brain edema. She was immediately intubated for an airway protection and started on hyperosmolar therapy. 11/22: Patient underwent Left parietal craniotomy for intracerebral hematoma evacuation; Left frontal gt hole placement for ventriculostomy by Dr. Womack. Seen in the ICU immediately postop. Profoundly hypotensive systolic blood pressure initially in the 50s. Stat bolus of LR was ordered by anesthesia. Levophed increased to 12 mcg/min with improvement in systolic blood pressure to 110s. We will place arterial line. Currently patient is under the influence of anesthesia, not moving any extremities 11/23: T-max 101.1. Continues to be febrile. Placing NG tube and Julian catheter. Right upper extremity without movement. Withdraws right lower externally. Spontaneous movement to left upper and lower extremity. Starting on tube feeding. 11/24: Tmax 101.1. Currently. 2 bowel movement overnight. Urine with Escherichia coli/staph epi in blood. Potassium phosphorus been replaced. Hypertonic saline held due to sodium 160+. Very arousable off sedation with ICP is controlled. 11/25: Continues to spike intermittent fevers. Tolerating tube feeding at goal. With persistent fevers we will consult infectious disease. ICPs are well controlled. Sodium remains at 163. 11/26: no significant changes. hyperosmolar therapy continues. peak pressures elevated today into the 40s, but plateau pressure 19, suggestive of a flow restriction. given albuterol neb and changed to PRVC mode from VCV with improvement in peak pressures. 11/27: T-max 101.5. Currently 100.9. Planned ventriculostomy removal today. Will discuss with neurosurgery initiation of of pharmacological treatment for bilateral upper extremity deep venous thrombosis. Tolerating tube feeds goal will be 55 cc an hour 11/28: Tmax 101.4. Currently afebrile. Currently on enoxaparin 40 mg subcutaneous daily. Will advance to full dose anticoagulation once okay with neurosurgery. Tolerating tube feeds at goal. 11/29: Tmax 101.1. Currently 99.9. Resting in bed in no distress. Tolerating tube feeds. Subjective 11/30: Tmax 11.5. Currently afebrile. Central line has been exchanged to a left IJ CVL. Tolerating tube feeds at goal. PSV trial ongoing. Objective Vital Signs Date Time Temp Pulse Resp B/P (MAP) Pulse Ox O2 Delivery O2 Flow Rate FiO2 11/30/17 07:44 94 40 11/30/17 06:00 94 11/30/17 05:00 99.7 24 86/47 (60) Intake and Output 11/30/17 11/30/17 12/01/17 08:00 16:00 00:00 Intake Total 932.7 ml Output Total 1350 ml Balance -417.3 ml Result Diagram: 11/30/17 0358 11/30/17 0358 Other Results Microbiology Date/Time Source Procedure Growth Status 11/25/17 17:50 Blood Line Aerobic Blood Culture - Preliminary NO GROWTH IN 4 DAYS Resulted 11/25/17 17:50 Blood Line Anaerobic Blood Culture - Preliminary NO GROWTH IN 4 DAYS Resulted 11/26/17 15:00 Cerebral Spinal Fluid Lumbar Puncture Fungal Smear - Final NO FUNGAL ELEMENTS SEEN. Resulted 11/26/17 15:00 Cerebral Spinal Fluid Lumbar Puncture Fungal Culture Pending Resulted 11/25/17 16:40 Urine Catheterized Urine Urine Culture - Final NO GROWTH IN 48 HOURS. Complete Imaging Last Impressions Chest X-Ray 11/28/17 0600 Signed Impressions: Service Date/Time: Tuesday, November 28, 2017 05:05 - CONCLUSION: Left lower lobe airspace disease again seen. Ariel Nath MD Head CT 11/26/17 0000 Signed Impressions: Service Date/Time: Monday, November 27, 2017 04:18 - CONCLUSION: Decreased pneumocephalus, stable intracranial intra-axial extra-axial hemorrhage and left parietal edema, with postsurgical changes and midline shift. Ariel Nath MD Upper Extremity Ultrasound 11/25/17 0000 Signed Impressions: Service Date/Time: Saturday, November 25, 2017 18:56 - CONCLUSION: Positive for deep venous thrombosis bilateral extremities, right worse than left. Anurag Carrion MD Lower Extremity Ultrasound 11/25/17 0000 Signed Impressions: Service Date/Time: Saturday, November 25, 2017 17:50 - CONCLUSION: Negative for deep venous thrombosis bilateral lower extremity. Anurag Carrion MD Abdomen/Pelvis CT 11/21/17 0000 Signed Impressions: Service Date/Time: Tuesday, November 21, 2017 21:37 - CONCLUSION: 1. No evidence to indicate pancreatitis. 2. Multiple stones in the gallbladder. 3. Multiple bilateral renal calculi.. 4. No significant changes compared to the prior exam. Meir Donnelly MD GI Procedure 11/20/17 0000 Signed Impressions: Service Date/Time: Monday, November 20, 2017 16:40 - CONCLUSION: ERCP as above. Jose Echevarria MD Objective Remarks GENERAL: 64-year-old female currently orotracheally intubated SKIN: Warm and dry. HEAD: Circumferential craniotomy dressing in place and left frontal EVD in place EYES: No scleral icterus. No injection or drainage. Pupils bilaterally 4 mm sluggish ENT: Orotracheally intubated. No thrush NECK: Supple, trachea midline. No JVD. Right IJ CVL is clean dry and intact. Left IJ CVL is clean dry and intact as well. CARDIOVASCULAR: Regular rate and rhythm without murmurs, gallops, or rubs. RESPIRATORY: Breath sounds equal bilaterally. No accessory muscle use. no wheezing. good air entry. GASTROINTESTINAL: Abdomen soft, non-tender, nondistended. Subcutaneous morphine pump in the right upper quadrant without mottling MUSCULOSKELETAL: Bilateral upper extremity edema NEURO EXAM: Patient is intubated, sedated. pupils equal, round, reactive. No withdrawal in any extremities no movement right upper extremity. Withdraws to pain right lower extremity. Spontaneous moving left upper and lower extremity. Nods head to simple answers appropriately. Urinary Catheter: Yes Assessment to: Continue Julian insert reason: Prolonged Immobilization Vascular Central Line Catheter: Yes Assessment to: Remove Date of Insertion: Nov 22, 2017 Line: Central Venous Catheter Side: Right Location: Internal, Jugular A/P Assessment and Plan NEURO/PSYCH: Large acute intraparenchymal hemorrhage involving the left parietal lobe Midline shift to the right by 9 mm Bonilla tip barachnoid hemorrhage and cerebral edema on the left side Depression/anxiety Chronic pain on Morphine pump Chronic opioid use [place] History of C-spine fusion Status post left parietal craniotomy for intracerebral hematoma evacuation, Left frontal gt hole placement for ventriculostomy by Dr. Womack. Left ventric removed 11/27 - 3% sodium chloride infusion, target Na 150-155 currently on hold is currently 153 - Received 1 g of levetiracetam. Currently at 500 mg IV every 12 hours -Propofol switched to midazolam drip currently on sedation vacation currently at 5 mg an hour Holding buspirone 30 mg twice daily and venlafaxine 50 mg twice daily for depression/anxiety. Resume when clinically indicated Holding acetaminophen/hydrocodone 325/7.51 tab every 6 hours as needed pain Holding scheduled morphine sulfate 30 mg every 12 hours Morphine liquid 10 mg every 6 hours scheduled with 1-2 mg every 3 hours as needed pain 1 through 10 Acetaminophen 650 mg every 6 hours as needed for fever RESP: Acute respiratory failure Ongoing tobaccoism COPD - Intubated for an airway protection PRVC 14/550/10/20/ PSV trials daily as tolerated Ventilator bundle Albuterol/ipratropium aerosols every 6 hours with albuterol aerosols every 2 hours as needed dyspnea Tobacco cessation booklet provided with appropriate CVS: Hypotension/shock Mild lactic acidosis History of hypertension -Currently off norepinephrine target map above 65 by calculation CPP 50-70. - 3% saline currently on hold with sodium currently 153 - Hold metoprolol and lisinopril while on vasopressors/borderline mean arterial pressure GI: Acute pancreatitis - resolved Opioid-induced constipation Cholelithiasis History of celiac disease 11/21/17 s/p ERCP with sphincterotomy and balloon extraction, finding choledocholithiasis. increase 0.8. tumor markers WNL. lipase WNL. WBC significant increase today, appears diaphoretic. tachycardic. GI signed off Continue tube feedings with vital 1.5 goal 55 cc an hour per nutrition's recommendations Lansoprazole 30 mg daily for GI prophylaxis. Continue docusate sodium 100 mg twice daily and senna 8.6 mg twice daily. Patient is on polyethylene glycol 17 g twice daily at home for constipation which is been continued along with lactulose 30 cc daily : Julian catheter for accurate I's and O's in a critically ill patient FEN/RENAL: Acute kidney insufficiency Nephrolithiasis Hypernatremia Hyper-magnesium - Monitor renal function closely, maintain Julian Free water 300 cc every 8 hours ID: E. coli UTI Coag negative staph bacteremia hold ceftriaxone per infectious disease Pertinent cultures 11/26 -CSF -no growth 11/25 -blood cultures 2 -no growth 11/19 -UA -pansensitive E. coli 11/20 -blood cultures 2 -coag negative staph/staph epi pansensitive 11/22 -blood cultures 2 -no growth to date Appreciate infectious disease for further antibiotic coverage HEME: Leukocytosis Normocytic anemia Sickle cell trait? Right subclavian/axillary and brachial DVT. Left cephalic superficial thrombus/ brachial thrombus - Leukocytosis most likely stress related - Monitor CBC daily. Follow trend Upper extremity also revealed bilateral superficial and deep venous thrombus as above DVT GI prophylaxis - Teds SCDs - No pharmacological DVT prophylaxis due to acute ICH. Discuss with neurosurgery 11/27 start enoxaparin 40 mg subcu daily at least - Iansoprazole 30 mg by tube daily Access - Left IJ CVL day 1 placed 11/30 Critical Care: The total critical care time was 30 minutes. Time to perform other separately billable procedures was not included in the critical care time. Rafael Saldana MD Nov 30, 2017 08:47
[2017-11-30] MEDS: SODIUM CHLORIDE 0.9% FLUSH 10 ML FLUSH IV FLUSH SCH ×3 (09:00→21:07)
[2017-11-30] MEDS ORDERED: METHYLNALTREXONE BROMIDE 12 MG/0.6 ML VIAL SQ ONE (09:00)
[2017-11-30] MEDS: TRIAMCINOLONE ACETONIDE 0.1% CREAM 15 GM TOPICAL SCH ×2 (09:00→21:08)
--- NOTE | 2017-11-30 09:03 | RADRPT ---
EXAM DATE/TIME: 11/30/2017 08:43 [place] COMPARISON: CHEST SINGLE AP, November 28, 2017, 5:05. INDICATIONS : Evaluate central line placement MEDICAL HISTORY : Cardiovascular disease. Chronic obstructive pulmonary disease. Gastroesophageal reflux disease.Celiac disease. Fibromyalgia. SURGICAL HISTORY : Tubal ligation. Fusion, cervical.Cardiac cath. ENCOUNTER: Subsequent ACUITY: 1 week PAIN SCORE: Non-responsive. LOCATION: chest FINDINGS: There is a stable ETT, NGT, and right IJ central line. Persistent left lower lung zone airspace disea se. Cardiomediastinal contours are stable. Remainder of the exam is unchanged. CONCLUSION: 1. Stable tubes and lines. 2. Stable left lower lung zone airspace disease. 3. No significant interval change. David Bacon MD on November 30, 2017 at 9:00 Board Certified Radiologist. This report was verified electronically.
[2017-11-30] MEDS: LACTULOSE SYRUP 20 GM/30 ML CUP PO SCH (09:24)
[2017-11-30] MEDS: DOCUSATE SODIUM 100 MG/10 ML UDC PO SCH ×2 (09:24→21:09)
[2017-11-30] MEDS: LANSOPRAZOLE SOLUTAB 30 MG TAB NG SCH (09:24)
[2017-11-30] MEDS: SENNOSIDES SYRUP 8.8 MG/5 ML CUP NG SCH ×2 (09:24→21:07)
[2017-11-30] MEDS: POLYETHYLENE GLYCOL 17 GM PKG NG SCH ×2 (09:25→21:08)
--- NOTE | 2017-11-30 09:34 | HHI.NSPN ---
History Chief Complaint: ICH s/p left crani for evacuation. Interval History 62-year-old female admitted on 11/19/2017 after she presented to the emergency room with symptoms that seem to be related to morphine withdrawal with the shaking in her lower extremities along with the anxiety abdominal pain and nausea. She has an intrathecal pain pump placed to which the daughter states enters into the cervical and lumbar spine last year with a last pump refill with morphine 3 months ago. The pain specialist informed her that she could not refill the pump anymore since the [place] was not authorizing this. She has a past medical history significant for chronic neck and back pain with history of cervical and lumbar spine surgeries, COPD, fibromyalgia, celiac disease and anxiety. She was admitted to [facility] for further evaluation where she became suddenly lethargic, aphasic and weak on the right side yesterday after the endoscopy for biliary obstruction. The CT of the head was done and shows large posterior parietal lobe hemorrhagic stroke with brain edema. She was transferred to the intensive care unit and intubated for an airway protection and started on hyperosmolar therapy. Neurosurgery has been consulted this morning for the cerebral hemorrhage. 11/22/17: Pt underwent a Left parietal craniotomy for intracerebral hematoma evacuation; Left frontal gt hole placement for ventriculostomy early this morning. Post op assessment done by me reveals she is sedated on Diprivan. Pupils are 3mm bilaterally, reactive bilaterally. Ventriculostomy drain in place at 10cm H20 without drainage or waveform and ICPs read 12. There is air in the line. 11/23/17: Waveform improved yesterday after flushing and again this morning was dampened with air in the ventriculostomy line. This was flushed again using sterile technique with betadine swab at the CSF port and a waveform returned and ICPs are 7. Pt is sedated and intubated. She opens her eyes. Not following commands. 11/24/17: Pt sedated on Diprivan, held and pt starting to open eyes and becomes agitated. Not following commands. Ventriculostomy in place at [id number], ICP 7. 11/27/17: Pts sedation being weaned. Opens eyes slightly spontaneously. Not following commands. Right hemiparesis. 11/28/17: Pt sedation being weaned, on low dose Versed drip. Opens eyes. Gets agitated when stimulated. Right hemiparesis persists. Not following commands for me, pt is likely aphasic also given location of her hemorrhage. 11/29/17: Pt more awake today. She follows commands. Intubated. Pupils 3mm bilaterally. RUE with dense paresis, some movement in RLE more proximally than distally. 11/30/17: Pt sedated on low dose Versed drip. Not opening eyes or following commands secondary to sedation. Pupils 3mm bilaterally, reactive bilaterally. System Review Comments Not able to obtain given clinical condition. Exam Results Vital Signs Date Time Temp Pulse Resp B/P (MAP) Pulse Ox O2 Delivery O2 Flow Rate FiO2 11/30/17 07:44 94 40 11/30/17 06:00 94 11/30/17 05:00 99.7 24 86/47 (60) Intake and Output 11/30/17 11/30/17 12/01/17 08:00 16:00 00:00 Intake Total 932.7 ml Output Total 1350 ml Balance -417.3 ml Physical Examination GENERAL: Intubated and mechanically ventilated. No apparent distress. HEENT: PERRLA 3 mm brisk. Orally intubated. RESP: CTA bilaterally. Intubated. HEART: Tachycardic, HR 110s. No murmurs. ABD: Soft positive bs SKIN: Incision clean and dry. No signs of infection. Pt with skin breakdown forehead without signs of infection. MUSCULOSKELETAL: Moving left-sided extremities spontaneously and to command. Right upper extremity dense paresis, some movement in RLE proximally more than distally. NEUROLOGICAL: Pt on low dose Versed this morning. Pt sedated this morning. PERRLA 3 mm brisk. Following commands. Moving left-sided extremities spontaneously. Right upper extremity dense paresis, some movement in RLE proximally more than distally. Lab, Micro, Other Results Last Impressions Chest X-Ray 11/30/17 9589 Signed Impressions: Service Date/Time: November 08:43 - CONCLUSION: 1. Stable tubes and lines. 2. Stable left lower lung zone airspace disease. 3. No significant interval change. David Bcaon MD Head CT 11/26/17 0000 Signed Impressions: Service Date/Time: Monday, November 27, 2017 04:18 - CONCLUSION: Decreased pneumocephalus, stable intracranial intra-axial extra-axial hemorrhage and left parietal edema, with postsurgical changes and midline shift. Ariel Nath MD Upper Extremity Ultrasound 11/25/17 0000 Signed Impressions: Service Date/Time: Saturday, November 25, 2017 18:56 - CONCLUSION: Positive for deep venous thrombosis bilateral extremities, right worse than left. Anurag Carrion MD Lower Extremity Ultrasound 11/25/17 0000 Signed Impressions: Service Date/Time: Saturday, November 25, 2017 17:50 - CONCLUSION: Negative for deep venous thrombosis bilateral lower extremity. Anurag Carrion MD Abdomen/Pelvis CT 11/21/17 0000 Signed Impressions: Service Date/Time: Tuesday, November 21, 2017 21:37 - CONCLUSION: 1. No evidence to indicate pancreatitis. 2. Multiple stones in the gallbladder. 3. Multiple bilateral renal calculi.. 4. No significant changes compared to the prior exam. Meir Donnelly MD GI Procedure 11/20/17 0000 Signed Impressions: Service Date/Time: Monday, November 20, 2017 16:40 - CONCLUSION: ERCP as above. Jose Echevarria MD Laboratory Tests Test 11/29/17 14:09 11/29/17 20:36 11/30/17 03:58 White Blood Count 12.8 TH/MM3 12.2 TH/MM3 Red Blood Count 2.65 MIL/MM3 2.82 MIL/MM3 Hemoglobin 7.6 GM/DL 7.8 GM/DL Hematocrit 22.5 % 23.9 % Mean Corpuscular Volume 85.1 FL 84.6 FL Mean Corpuscular Hemoglobin 28.8 PG 27.5 PG Mean Corpuscular Hemoglobin Concent 33.8 % 32.5 % Red Cell Distribution Width 15.3 % 15.2 % Platelet Count 213 TH/MM3 284 TH/MM3 Mean Platelet Volume 9.8 FL 9.4 FL Blood Urea Nitrogen 22 MG/DL 23 MG/DL Creatinine 0.86 MG/DL 0.89 MG/DL Random Glucose 111 MG/DL 120 MG/DL Calcium Level 9.0 MG/DL 9.4 MG/DL Sodium Level 154 MEQ/L 153 MEQ/L Potassium Level 3.4 MEQ/L 3.8 MEQ/L Chloride Level 122 MEQ/L 121 MEQ/L Carbon Dioxide Level 26.9 MEQ/L 25.5 MEQ/L Anion Gap 5 MEQ/L 7 MEQ/L Estimat Glomerular Filtration Rate 67 ML/MIN 64 ML/MIN Serum Osmolality 324 MOSM/KG 326 MOSM/KG 324 MOSM/KG Neutrophils (%) (Auto) 75.5 % Lymphocytes (%) (Auto) 15.3 % Monocytes (%) (Auto) 6.0 % Eosinophils (%) (Auto) 2.7 % Basophils (%) (Auto) 0.5 % Neutrophils # (Auto) 9.2 TH/MM3 Lymphocytes # (Auto) 1.9 TH/MM3 Monocytes # (Auto) 0.7 TH/MM3 Eosinophils # (Auto) 0.3 TH/MM3 Basophils # (Auto) 0.1 TH/MM3 CBC Comment DIFF FINAL Differential Comment Total Protein 6.2 GM/DL Albumin 1.9 GM/DL Phosphorus Level 3.1 MG/DL Magnesium Level 2.9 MG/DL Alkaline Phosphatase 90 U/L Aspartate Amino Transf (AST/SGOT) 53 U/L Alanine Aminotransferase (ALT/SGPT) 64 U/L Total Bilirubin 0.3 MG/DL Medical Decision Making Impression and Plan A: Large left posterior temporal lobe prior low but occipital lobe hemorrhagic stroke with associated moderate mass effect and midline shift. Chronic neck and back pain with intrathecal pump placement which was not refilled due to [facility] of [facility]. Likely is undergoing opiate withdrawal. Biliary obstruction with jaundice status post ERCP History of COPD Staph epidermidis bacteremia 2 with the urinary tract infection. Pt has since had negative BC. P: Continue with critical care weaning vent. Continue to monitor Neuro exam Continue with rehab efforts. Zack Ramirez Nov 30, 2017 9:34 am
--- NOTE | 2017-11-30 15:04 | HHI.PR ---
Addendum to Inpatient Note Addendum Reason: Additional Documentation Additional Information Fevers defervesced after antibiotics stopped. ? Drug fever. d/w . Will sign off please call back if any change in clinical condition or questions. Argelia Coleman MD Nov 30, 2017 15:04
[2017-11-30] MEDS: ENOXAPARIN SODIUM 40 MG/0.4 ML SYRINGE SQ SCH (15:53)
[2017-12-01] VITALS (19 sets, daily range): BP systolic 101–143; BP diastolic 51–74; PULSE 102–120; RESP 15–28; TEMP 97.7–99; O2SAT 92–100
[2017-12-01] MEDS: RESP: ALBUTEROL 2.5 MG/IPRATROPIUM 0.5 MG NEB (SCH) NEB ×4 (03:28→21:40)
[2017-12-01] MEDS: levETIRAcetam INJ 500 MG in SODIUM CHLORIDE 0.9% INJ 100 ML IV SCH ×2 (05:24→15:58)
[2017-12-01] MEDS: ARTIFICIAL TEARS OPTH SOLN 15 ML BTL EACH EYE SCH ×3 (05:24→22:47)
[2017-12-01] MEDS: FREE WATER G-TUBE SCH ×3 (05:25→22:47)
[2017-12-01] MEDS: MORPHINE SULFATE ORAL SOLN 10 MG/0.5 ML SYRINGE NG SCH ×6 (05:28→22:43)
--- NOTE | 2017-12-01 06:51 | HHI.CCPN ---
Subjective Remarks/Hospital Course 62-year-old female with a past medical history significant for chronic pain with morphine pump, fibromyalgia, celiac disease and anxiety presented initially to the hospital for evaluation of leg spasms. The patient reports that she woke up approximately 1 AM and "could not control her legs." Her daughter gave her a 30 mg tablet of morphine to help with her symptoms yet they persisted. She was admitted to [facility] floor for further evaluation where she became suddenly lethargic and weak on the right side. The CT of the head was done immediately and shows large posterior parietal lobe hemorrhagic stroke with brain edema. She was immediately intubated for an airway protection and started on hyperosmolar therapy. 11/22: Patient underwent Left parietal craniotomy for intracerebral hematoma evacuation; Left frontal gt hole placement for ventriculostomy by Dr. Womack. Seen in the ICU immediately postop. Profoundly hypotensive systolic blood pressure initially in the 50s. Stat bolus of LR was ordered by anesthesia. Levophed increased to 12 mcg/min with improvement in systolic blood pressure to 110s. We will place arterial line. Currently patient is under the influence of anesthesia, not moving any extremities 11/23: T-max 101.1. Continues to be febrile. Placing NG tube and Julian catheter. Right upper extremity without movement. Withdraws right lower externally. Spontaneous movement to left upper and lower extremity. Starting on tube feeding. 11/24: Tmax 101.1. Currently. 2 bowel movement overnight. Urine with Escherichia coli/staph epi in blood. Potassium phosphorus been replaced. Hypertonic saline held due to sodium 160+. Very arousable off sedation with ICP is controlled. 11/25: Continues to spike intermittent fevers. Tolerating tube feeding at goal. With persistent fevers we will consult infectious disease. ICPs are well controlled. Sodium remains at 163. 11/26: no significant changes. hyperosmolar therapy continues. peak pressures elevated today into the 40s, but plateau pressure 19, suggestive of a flow restriction. given albuterol neb and changed to PRVC mode from VCV with improvement in peak pressures. 11/27: T-max 101.5. Currently 100.9. Planned ventriculostomy removal today. Will discuss with neurosurgery initiation of of pharmacological treatment for bilateral upper extremity deep venous thrombosis. Tolerating tube feeds goal will be 55 cc an hour 11/28: Tmax 101.4. Currently afebrile. Currently on enoxaparin 40 mg subcutaneous daily. Will advance to full dose anticoagulation once okay with neurosurgery. Tolerating tube feeds at goal. 11/29: Tmax 101.1. Currently 99.9. Resting in bed in no distress. Tolerating tube feeds. 11/30: Tmax 101.5. Currently afebrile. Central line has been exchanged to a left IJ CVL. Tolerating tube feeds at goal. PSV trial ongoing. Subjective 12/01: Tmax 99.7. Currently 98.2.. Central line exchanged yesterday. Will attempt PSV trial today. Atelectasis. Okayed for tracheostomy per neurosurgery. We'll coordinate PEG tube placement as well possibly this weekend. Will discuss with daughter. Objective Vital Signs Date Time Temp Pulse Resp B/P (MAP) Pulse Ox O2 Delivery O2 Flow Rate FiO2 12/01/17 04:00 99.0 110 28 134/60 (84) 100 12/01/17 04:00 40 Result Diagram: 11/30/17 0358 11/30/17 0358 Other Results Microbiology Date/Time Source Procedure Growth Status 11/25/17 17:50 Blood Line Aerobic Blood Culture - Final NO GROWTH IN 5 DAYS Complete 11/25/17 17:50 Blood Line Anaerobic Blood Culture - Final NO GROWTH IN 5 DAYS Complete 11/26/17 15:00 Cerebral Spinal Fluid Lumbar Puncture Fungal Smear - Final NO FUNGAL ELEMENTS SEEN. Resulted 11/26/17 15:00 Cerebral Spinal Fluid Lumbar Puncture Fungal Culture Pending Resulted 11/25/17 16:40 Urine Catheterized Urine Urine Culture - Final NO GROWTH IN 48 HOURS. Complete Imaging Last Impressions Chest X-Ray 11/30/17 0839 Signed Impressions: Service Date/Time: November 08:43 - CONCLUSION: 1. Stable tubes and lines. 2. Stable left lower lung zone airspace disease. 3. No significant interval change. David Bacon MD Head CT 11/26/17 0000 Signed Impressions: Service Date/Time: Monday, November 27, 2017 04:18 - CONCLUSION: Decreased pneumocephalus, stable intracranial intra-axial extra-axial hemorrhage and left parietal edema, with postsurgical changes and midline shift. Ariel Nath MD Upper Extremity Ultrasound 11/25/17 0000 Signed Impressions: Service Date/Time: Saturday, November 25, 2017 18:56 - CONCLUSION: Positive for deep venous thrombosis bilateral extremities, right worse than left. Anurag Carrion MD Lower Extremity Ultrasound 11/25/17 0000 Signed Impressions: Service Date/Time: Saturday, November 25, 2017 17:50 - CONCLUSION: Negative for deep venous thrombosis bilateral lower extremity. Anurag Carrion MD Abdomen/Pelvis CT 11/21/17 0000 Signed Impressions: Service Date/Time: Tuesday, November 21, 2017 21:37 - CONCLUSION: 1. No evidence to indicate pancreatitis. 2. Multiple stones in the gallbladder. 3. Multiple bilateral renal calculi.. 4. No significant changes compared to the prior exam. Meir Donnelly MD GI Procedure 11/20/17 0000 Signed Impressions: Service Date/Time: Monday, November 20, 2017 16:40 - CONCLUSION: ERCP as above. Jose Echevarria MD Objective Remarks GENERAL: 64-year-old female currently orotracheally intubated SKIN: Warm and dry. HEAD: Circumferential craniotomy dressing in place and left frontal EVD in place EYES: No scleral icterus. No injection or drainage. Pupils bilaterally 4 mm sluggish ENT: Orotracheally intubated. No thrush NECK: Supple, trachea midline. No JVD. Left IJ CVL is clean dry and intact as well. CARDIOVASCULAR: Tachycardic, RR. Without murmurs, gallops, or rubs. RESPIRATORY: Breath sounds equal bilaterally. No accessory muscle use. no wheezing. good air entry. GASTROINTESTINAL: Abdomen soft, non-tender, nondistended. Subcutaneous morphine pump in the right upper quadrant without mottling MUSCULOSKELETAL: Bilateral upper extremity edema NEURO EXAM: Patient is intubated, sedated. pupils equal, round, reactive. No withdrawal in any extremities no movement right upper extremity. Withdraws to pain right lower extremity. Spontaneous moving left upper and lower extremity. Nods head to simple answers appropriately. Vascular Central Line Catheter: Yes Assessment to: Continue Date of Insertion: Nov 30, 2017 Line: Central Venous Catheter Side: Left Location: Internal, Jugular A/P Assessment and Plan NEURO/PSYCH: Large acute intraparenchymal hemorrhage involving the left parietal lobe Midline shift to the right by 9 mm Bonilla tip barachnoid hemorrhage and cerebral edema on the left side Depression/anxiety Chronic pain on Morphine pump Chronic opioid use [place] History of C-spine fusion Status post left parietal craniotomy for intracerebral hematoma evacuation, Left frontal gt hole placement for ventriculostomy by Dr. Womack. Left ventric removed 11/27 - 3% sodium chloride infusion, target Na 150-155 currently on hold is currently 153 - Received 1 g of levetiracetam. Currently at 500 mg IV every 12 hours -Propofol switched to midazolam drip currently at 3 mg an hour Holding buspirone 30 mg twice daily and venlafaxine 50 mg twice daily for depression/anxiety. Resume when clinically indicated Holding acetaminophen/hydrocodone 325/7.51 tab every 6 hours as needed pain Holding scheduled morphine sulfate 30 mg every 12 hours Morphine liquid 10 mg every 6 hours scheduled with 1-2 mg every 3 hours as needed pain 1 through 10 Acetaminophen 650 mg every 6 hours as needed for fever RESP: Acute respiratory failure Ongoing tobaccoism COPD - Intubated for an airway protection PRVC 14/550/10/20/40 PSV trials daily as tolerated Ventilator bundle Albuterol/ipratropium aerosols every 6 hours with albuterol aerosols every 2 hours as needed dyspnea Tobacco cessation booklet provided with appropriate CVS: Hypotension/shock Mild lactic acidosis History of hypertension -Currently off norepinephrine target map above 65 by calculation CPP 50-70. - 3% saline currently on hold with sodium currently 153 - Hold metoprolol and lisinopril while on vasopressors/borderline mean arterial pressure GI: Acute pancreatitis - resolved Opioid-induced constipation Cholelithiasis History of celiac disease 11/21/17 s/p ERCP with sphincterotomy and balloon extraction, finding choledocholithiasis. increase 0.8. tumor markers WNL. lipase WNL. WBC significant increase today, appears diaphoretic. tachycardic. GI signed off Continue tube feedings with vital 1.5 goal 55 cc an hour per nutrition's recommendations Lansoprazole 30 mg daily for GI prophylaxis. Continue docusate sodium 100 mg twice daily and senna 8.6 mg twice daily. Patient is on polyethylene glycol 17 g twice daily at home for constipation which is been continued along with lactulose 30 cc daily : Julian catheter for accurate I's and O's in a critically ill patient FEN/RENAL: Acute kidney insufficiency Nephrolithiasis Hypernatremia Hyper-magnesium - Monitor renal function closely, maintain Julian Free water 300 cc every 8 hours ID: E. coli UTI Coag negative staph bacteremia hold ceftriaxone per infectious disease Pertinent cultures 11/26 -CSF -no growth 11/25 -blood cultures 2 -no growth 11/19 -UA -pansensitive E. coli 11/20 -blood cultures 2 -coag negative staph/staph epi pansensitive 11/22 -blood cultures 2 -no growth to date Appreciate infectious disease for further antibiotic coverage HEME: Leukocytosis Normocytic anemia Sickle cell trait? Right subclavian/axillary and brachial DVT. Left cephalic superficial thrombus/ brachial thrombus - Leukocytosis most likely stress related - Monitor CBC daily. Follow trend Upper extremity also revealed bilateral superficial and deep venous thrombus as above DVT GI prophylaxis - Teds SCDs - No pharmacological DVT prophylaxis due to acute ICH. Discuss with neurosurgery 11/27 start enoxaparin 40 mg subcu daily at least - Iansoprazole 30 mg by tube daily Access - Left IJ CVL day 2 placed 11/30 Level II follow-up Rafael Saldana MD Dec 01, 2017 06:51
[2017-12-01 07:28] LABS: ALBUMIN 1.9 GM/DL (3.4-5.0); AST (GOT) 58 U/L (15-37); BICARBONATE 25.8 MEQ/L (21.0-32.0); BLOOD UREA NITROGEN 28 MG/DL (7-18); CALCIUM 9.3 MG/DL (8.5-10.1); CHLORIDE 120 MEQ/L (98-107); CREATININE 0.86 MG/DL (0.50-1.00); GLOMERULAR FILTRATION RATE 67 ML/MIN (>89); GLUCOSE,RANDOM 134 MG/DL (74-106); MAGNESIUM 3.1 MG/DL (1.5-2.5); SODIUM (NA) 153 MEQ/L (136-145)
[2017-12-01 07:30] LABS: ALT (GPT) 78 U/L (10-53)
[2017-12-01 07:32] LABS: ALKALINE PHOSPHATASE 90 U/L (45-117); TOTAL BILIRUBIN ADULT 0.3 MG/DL (0.2-1.0); TOTAL PROTEIN 5.8 GM/DL (6.4-8.2)
[2017-12-01] MEDS: LANSOPRAZOLE SOLUTAB 30 MG TAB NG SCH (08:40)
[2017-12-01] MEDS: LACTULOSE SYRUP 20 GM/30 ML CUP PO SCH (08:40)
[2017-12-01] MEDS: DOCUSATE SODIUM 100 MG/10 ML UDC PO SCH ×2 (08:40→22:44)
[2017-12-01] MEDS: SENNOSIDES SYRUP 8.8 MG/5 ML CUP NG SCH ×2 (08:41→22:43)
[2017-12-01] MEDS: POLYETHYLENE GLYCOL 17 GM PKG NG SCH ×2 (08:41→22:43)
[2017-12-01] MEDS: TRIAMCINOLONE ACETONIDE 0.1% CREAM 15 GM TOPICAL SCH ×2 (09:00→22:46)
[2017-12-01] MEDS: SODIUM CHLORIDE 0.9% FLUSH 10 ML FLUSH IV FLUSH SCH ×3 (09:00→22:44)
[2017-12-01 09:33] LABS: AUTOMATED NEUTROPHIL # 7.8 TH/MM3 (1.8-7.7); BASOPHIL % 0.3 % (0.0-2.0); EOSINOPHIL # 0.4 TH/MM3 (0-0.4); EOSINOPHIL % 3.4 % (0.0-4.0); HEMATOCRIT 23.9 % (35.0-46.0); HEMOGLOBIN 8.1 GM/DL (11.6-15.3); LYMPH % 18.5 % (9.0-44.0); MEAN CELL VOLUME 84.7 FL (80.0-100.0); MEAN CORPUSCULAR HEMOGLOBIN 28.7 PG (27.0-34.0); MEAN CORPUSCULAR HGB CONC 33.8 % (32.0-36.0); MEAN PLATELET VOLUME 9.2 FL (7.0-11.0); MONO % 5.3 % (0.0-8.0); MONOCYTE # 0.6 TH/MM3 (0-0.9); NEUT % 72.5 % (16.0-70.0); PLATELET COUNT 278 TH/MM3 (150-450); RED BLOOD COUNT 2.82 MIL/MM3 (4.00-5.30); RED CELL DISTRIBUTION WIDTH 15.7 % (11.6-17.2); WHITE BLOOD COUNT 10.7 TH/MM3 (4.0-11.0)
[2017-12-01] MEDS ORDERED: NITROGLYCERIN 2% OINT 1 GM PACKET TOPICAL PRN (12:00)
[2017-12-01] MEDS ORDERED: ENALAPRILAT 1.25 MG/ML VIAL IV PUSH PRN (12:00)
[2017-12-01] MEDS ORDERED: POTASSIUM CHLORIDE 20 MEQ PWD PACKET PO ONE (12:00)
[2017-12-01] MEDS ORDERED: LABETALOL HCL 100 MG/20 ML VIAL IV PUSH PRN (12:00)
--- NOTE | 2017-12-01 13:12 | HHI.GIFU ---
Subjective Remarks Pt resting in bed, intubated on vent. GI reconsulted for PEG tube placement. (Columba Malhotra) Objective Vitals I&O Vital Signs Date Time Temp Pulse Resp B/P (MAP) Pulse Ox O2 Delivery O2 Flow Rate FiO2 12/01/17 12:00 108 12/01/17 12:00 40 12/01/17 12:00 97.8 108 19 136/57 (83) 100 12/01/17 11:15 100 40 12/01/17 10:00 120 12/01/17 08:24 100 40 12/01/17 08:24 40 12/01/17 08:00 102 12/01/17 08:00 98.0 106 18 121/74 (90) 100 12/01/17 08:00 40 12/01/17 06:00 102 12/01/17 04:00 99.0 110 28 134/60 (84) 100 12/01/17 04:00 110 12/01/17 04:00 40 12/01/17 03:23 100 40 12/01/17 02:00 104 12/01/17 00:18 100 40 12/01/17 00:00 40 12/01/17 00:00 104 12/01/17 00:00 98.9 104 16 111/53 (72) 100 11/30/17 22:00 95 11/30/17 20:27 100 40 11/30/17 20:00 106 11/30/17 20:00 40 11/30/17 20:00 98.9 106 20 92/52 (65) 100 11/30/17 18:00 96 11/30/17 16:00 114 11/30/17 16:00 98.8 101 24 131/76 (94) 100 11/30/17 16:00 40 11/30/17 14:54 100 40 11/30/17 14:00 114 I/O 11/30/17 11/30/17 11/30/17 12/01/17 12/01/17 12/01/17 07:00 15:00 23:00 07:00 15:00 23:00 Intake Total 932.7 ml 782 ml 1137 ml Output Total 1350 ml 1500 ml 1250 ml Balance -417.3 ml -718 ml -113 ml IV Total 25.7 ml 100 ml Tube Feeding 307 ml 382 ml 537 ml Other 600 ml 300 ml 600 ml Output Urine Total 1350 ml 1500 ml 1250 ml # Bowel Movements 0 0 0 Laboratory Laboratory Tests Test 11/30/17 14:40 12/01/17 06:00 12/01/17 09:15 Serum Osmolality 326 Blood Urea Nitrogen 28 Creatinine 0.86 Random Glucose 134 Total Protein 5.8 Albumin 1.9 Calcium Level 9.3 Phosphorus Level 3.0 Magnesium Level 3.1 Alkaline Phosphatase 90 Aspartate Amino Transf (AST/SGOT) 58 Alanine Aminotransferase (ALT/SGPT) 78 Total Bilirubin 0.3 Sodium Level 153 Potassium Level 3.8 Chloride Level 120 Carbon Dioxide Level 25.8 Anion Gap 7 Estimat Glomerular Filtration Rate 67 White Blood Count 10.7 Red Blood Count 2.82 Hemoglobin 8.1 Hematocrit 23.9 Mean Corpuscular Volume 84.7 Mean Corpuscular Hemoglobin 28.7 Mean Corpuscular Hemoglobin Concent 33.8 Red Cell Distribution Width 15.7 Platelet Count 278 Mean Platelet Volume 9.2 Neutrophils (%) (Auto) 72.5 Lymphocytes (%) (Auto) 18.5 Monocytes (%) (Auto) 5.3 Eosinophils (%) (Auto) 3.4 Basophils (%) (Auto) 0.3 Neutrophils # (Auto) 7.8 Lymphocytes # (Auto) 2.0 Monocytes # (Auto) 0.6 Eosinophils # (Auto) 0.4 Basophils # (Auto) 0.0 CBC Comment DIFF FINAL Differential Comment Date/Time Source Procedure Growth Status 11/25/17 17:50 Blood Line Aerobic Blood Culture - Final NO GROWTH IN 5 DAYS Complete 11/25/17 17:50 Blood Line Anaerobic Blood Culture - Final NO GROWTH IN 5 DAYS Complete 11/26/17 15:00 Cerebral Spinal Fluid Lumbar Puncture Fungal Smear - Final NO FUNGAL ELEMENTS SEEN. Resulted 11/26/17 15:00 Cerebral Spinal Fluid Lumbar Puncture Fungal Culture Pending Resulted 11/25/17 16:40 Urine Catheterized Urine Urine Culture - Final NO GROWTH IN 48 HOURS. Complete Imaging Current Medications Ondansetron HCl (Zofran Inj) 4 mg ONCE ONCE IVP Last administered on 11/19/17at 04:43; Start 11/19/17 at 03:30; Stop 11/19/17 at 03:31; Status DC Sodium Chloride 1,000 ml @ 125 mls/hr Q8H IV Last administered on 11/19/17at 04: 43; Start 11/19/17 at 03:24; Stop 11/19/17 at 04:48; Status DC Sodium Chloride (NS Flush) 2 ml UNSCH PRN IV FLUSH FLUSH AFTER USING IV ACCESS ; Start 11/19/17 at 03:30; Status Cancel Levofloxacin/ Dextrose 100 ml @ 100 mls/hr ONCE ONCE IV Last administered on 11/19/17at 05:20; Start 11/19/17 at 04:30; Stop 11/19/17 at 05:29; Status DC Sodium Chloride 1,000 ml @ 75 mls/hr [id number] IV Last administered on 11/24/17at 00:21; Start 11/19/17 at 04:42; Stop 11/24/17 at 06:48; Status DC Sodium Chloride (NS Flush) 2 ml UNSCH PRN IV FLUSH FLUSH AFTER USING IV ACCESS ; Start 11/19/17 at 04:45 Sodium Chloride (NS Flush) 2 ml BID IV FLUSH Last administered on 12/01/17at 09: 00; Start 11/19/17 at 09:00 Ondansetron HCl (Zofran Inj) 4 mg Q6H PRN IVP NAUSEA OR VOMITING; Start at 04:45 Heparin Sodium (Porcine) (Heparin Inj) 5,000 units Q8H SQ Last administered on 11/19/17at 05:43; Start 11/19/17 at 05:00; Stop 11/22/17 at 03:20; Status DC Naloxone HCl (Narcan Inj) 0.4 mg UNSCH PRN IV PUSH SEE LABEL COMMENTS; Start at 04:45 Ceftriaxone Sodium 1000 mg/ Sodium Chloride 100 ml @ 200 mls/hr Q24H IV Last administered on 11/28/17at 09:05; Start 11/19/17 at 08:00; Stop 11/28/17 at 12:52 ; Status DC Iohexol (Omnipaque 350 Inj) 75 ml STK-MED ONCE IVCONTRAST Last administered on 11/19/17at 04:57; Start 11/19/17 at 04:57; Stop 11/19/17 at 04:58; Status DC Lorazepam (Ativan Inj) 0.5 mg ONCE ONCE IV PUSH ; Start 11/19/17 at 06:00; Stop 11/19/17 at 06:01; Status DC Lorazepam (Ativan) 2 mg ONCE ONCE PO Last administered on 11/19/17at 17:50; Start 11/19/17 at 17:30; Stop 11/19/17 at 17:31; Status DC Lorazepam (Ativan) 2 mg ONCE ONCE PO Last administered on 11/20/17at 01:35; Start 11/20/17 at 01:15; Stop 11/20/17 at 01:16; Status DC Lactated Ringer's 1,000 ml @ 30 mls/hr Q24H PRN IV SEE LABEL COMMENTS; Start at 03:45; Stop 11/23/17 at 03:44; Status DC Sodium Chloride 500 ml @ 30 mls/hr [id number] PRN IV SEE LABEL COMMENTS; Start 11/20/17 at 03:45; Stop 11/23/17 at 03:44; Status DC Metoprolol Tartrate (Lopressor) 25 mg FLEXIBLE NANNY PRN PO SEE LABEL COMMENTS; Start 11/20/17 at 03:45; Stop 11/23/17 at 03:44; Status DC Povidone Iodine (Betadine 5% Antisepsis Kit) 1 applic FLEXIBLE NANNY PRN EACH NARE SEE LABEL COMMENTS; Start 11/20/17 at 03:45; Stop 11/23/17 at 03:44; Status DC Chlorhexidine Gluconate (Chlorhexidine 2% Cloth) 3 pack FLEXIBLE NANNY PRN TOPICAL SEE LABEL COMMENTS; Start 11/20/17 at 03:45; Stop 11/23/17 at 03:44; Status DC Buspirone HCl (Buspar) 30 mg BID PO Last administered on 11/21/17at 20:28; Start 11/20/17 at 09:00; Status Future Hold Acetaminophen/ Butalbital/ Caffeine (Fioricet 325-50-40) 1 tab Q4H PRN PO HEADACHE Last administered on 11/20/17at 20:33; Start 11/20/17 at 05:30; Status Future Hold Lisinopril (Prinivil) 5 mg DAILY PO Last administered on 11/21/17at 08:37; Start 11/20/17 at 10:00; Stop 11/21/17 at 09:38; Status DC Enalaprilat (Vasotec Inj) 1.25 mg Q6H PRN IV PUSH bp>160/90; Start 11/20/17 at 10:00; Stop 11/26/17 at 15:22; Status DC Promethazine HCl (*PHENERGAN INJ PERIprocedural ONLY) 25 mg STK-MED ONCE .ROUTE Last administered on 11/20/17at 17:02; Start 11/20/17 at 17:02; Stop 11/20/17 at 17:03; Status DC Morphine Sulfate (*morphine INJ PERIprocedure ONLY) 4 mg STK-MED ONCE .ROUTE Last administered on 11/20/17at 17:03; Start 11/20/17 at 17:03; Stop 11/20/17 at 17: 04; Status DC Fentanyl Citrate (fentaNYL INJ) 100 mcg STK-MED ONCE .ROUTE ; Start 11/20/17 at 17:03; Stop 11/20/17 at 17:04; Status DC Labetalol HCl (*TRANDATE INJ PERIprocedural Use ONLY) 100 mg STK-MED ONCE .ROUTE ; Start 11/20/17 at 17:03; Stop 11/20/17 at 17:04; Status DC Fentanyl Citrate (fentaNYL INJ) 100 mcg STK-MED ONCE .ROUTE ; Start 11/20/17 at 17:03; Stop 11/20/17 at 17:04; Status DC Morphine Sulfate (*morphine INJ PERIprocedure ONLY) 4 mg STK-MED ONCE .ROUTE Last administered on 11/20/17at 17:11; Start 11/20/17 at 17:11; Stop 11/20/17 at 17: 12; Status DC Enalaprilat (*VASOTEC INJ PERIprocedural Use ONLY) 1.25 mg STK-MED ONCE .ROUTE Last administered on 11/20/17at 17:12; Start 11/20/17 at 17:12; Stop 11/20/17 at 17: 13; Status DC Miscellaneous Information ALL NURSING DEPARTME... UNSCH PRN .XX SEE LABEL COMMENTS; Start 11/20/17 at 16:56; Stop 11/21/17 at 16:55; Status DC Iohexol (OMNIPAQUE 300 INJ (Rad CT)) 50 ml STK-MED ONCE OTHER ; Start 11/20/17 at 17:19; Stop 11/20/17 at 17:20; Status DC Morphine Sulfate (*morphine INJ PERIprocedure ONLY) 4 mg STK-MED ONCE .ROUTE Last administered on 11/20/17at 17:20; Start 11/20/17 at 17:20; Stop 11/20/17 at 17: 21; Status DC Ondansetron HCl (*ZOFRAN INJ PERIprocedural ONLY) 4 mg STK-MED ONCE .ROUTE Last administered on 11/20/17at 17:22; Start 11/20/17 at 17:22; Stop 11/20/17 at 17: 23; Status DC Meperidine HCl (*DEMEROL INJ PERIprocedural ONLY) 25 mg STK-MED ONCE .ROUTE Last administered on 11/20/17at 17:37; Start 11/20/17 at 17:37; Stop 11/20/17 at 17: 38; Status DC Triamcinolone Acetonide (Aristocort 0.1% Cream) 1 applic BID TOPICAL Last administered on 12/01/17at 09:00; Start 11/21/17 at 12:00 Lisinopril (Prinivil) 20 mg DAILY PO ; Start 11/22/17 at 09:00; Status Future Hold Metoprolol Tartrate (Lopressor) 12.5 mg Q12HR PO Last administered on 11/21/17at 20:32; Start 11/21/17 at 10:00; Status Future Hold Diatrizoate Meglum/ Diatrizoate Sod ( Gastroview Liq) 18 ml ONCE ONCE PO Last administered on 11/21/17at 16:45; Start 11/21/17 at 16:30; Stop 11/21/17 at 16: 31; Status DC Iohexol (Omnipaque 350 Inj) 70 ml STK-MED ONCE IVCONTRAST Last administered on 11/21/17at 21:52; Start 11/21/17 at 21:50; Stop 11/21/17 at 21:51; Status DC Nicardipine HCl 25 mg/Sodium Chloride 250 ml @ 50 mls/hr TITRATE PRN IV Blood pressure management; Start 11/21/17 at 22:15 Mannitol 300 ml @ As Directed STK-MED ONCE .ROUTE ; Start 11/21/17 at 22:23; Stop 11/21/17 at 22:24; Status DC Mannitol 50 ml @ As Directed STK-MED ONCE .ROUTE ; Start 11/21/17 at 22:24; Stop 11/21/17 at 22:25; Status DC Mannitol 50 ml @ As Directed STK-MED ONCE .ROUTE ; Start 11/21/17 at 22:26; Stop 11/21/17 at 22:27; Status DC Etomidate (Amidate Inj) 40 mg STK-MED ONCE .ROUTE ; Start 11/21/17 at 23:29; Stop 11/21/17 at 23:30; Status DC Rocuronium [place] (Zemuron Inj) 50 mg STK-MED ONCE .ROUTE ; Start 11/21/17 at 23 :30; Stop 11/21/17 at 23:31; Status DC Mannitol (Mannitol Inj) 70 gm ONCE ONCE IV Last administered on 11/22/17at 00:01 ; Start 11/21/17 at 23:45; Stop 11/21/17 at 23:50; Status DC Etomidate (Amidate Inj) 20 mg NOW ONCE IV PUSH Last administered on 11/21/17at 23:59; Start 11/21/17 at 23:45; Stop 11/21/17 at 23:50; Status DC Rocuronium [place] (Zemuron Inj) 50 mg NOW ONCE IV PUSH Last administered on at 23:58; Start 11/21/17 at 23:45; Stop 11/21/17 at 23:50; Status DC Etomidate (Amidate Inj) 20 mg NOW IV PUSH ; Start 11/21/17 at 23:30; Stop at 23:56; Status DC Rocuronium [place] (Zemuron Inj) 50 mg NOW IV ; Start 11/21/17 at 23:30; Stop 11/21/17 at 23:56; Status DC Mannitol (Mannitol Inj) 70 gm NOW IV ; Start 11/21/17 at 23:41; Stop 11/21/17 at 23:56; Status DC Propofol 100 ml @ 2.265 mls/ hr TITRATE PRN IV Sedation Last administered on at 00:22; Start 11/21/17 at 23:45; Stop 11/22/17 at 00:40; Status DC Acetaminophen 100 ml @ 400 mls/hr Q6H PRN IV INCREASED TEMPERATURE Last administered on 11/28/17at 16:53; Start 11/22/17 at 00:45; Stop 11/30/17 at 08:50 ; Status DC Propofol 100 ml @ 2.265 mls/ hr TITRATE PRN IV Sedation Last administered on at 05:03; Start 11/22/17 at 00:45 Sodium Chloride 1,000 ml @ 999 mls/hr BOLUS ONCE IV Last administered on at 03:43; Start 11/22/17 at 03:00; Stop 11/22/17 at 04:00; Status DC Sodium Chloride 1,000 ml @ 999 mls/hr BOLUS ONCE IV ; Start 11/22/17 at 03:00; Stop 11/22/17 at 04:00; Status DC Sodium Chloride 500 ml @ 30 mls/hr Q16H IV Last administered on 11/22/17at 18:09 ; Start 11/22/17 at 03:00; Stop 11/27/17 at 12:47; Status DC Famotidine (Pepcid Inj) 20 mg Q12H IV PUSH Last administered on 11/23/17at 04:28 ; Start 11/22/17 at 04:00; Stop 11/23/17 at 16:03; Status DC Thrombin (Thrombin Top Soln) 10,000 units STK-MED ONCE .ROUTE Last administered on 11/22/17at 05:13; Start 11/22/17 at 04:02; Stop 11/22/17 at 04:03; Status DC Gelatin (Gelfoam 100 Top) 1 foam STK-MED ONCE .ROUTE Last administered on at 05:13; Start 11/22/17 at 04:02; Stop 11/22/17 at 04:03; Status DC Lidocaine/ Epinephrine (Xylocaine-Epi 1%-1:100,000 Inj) 50 ml STK-MED ONCE .ROUTE ; Start 11/22/17 at 04:02; Stop 11/22/17 at 04:03; Status DC Gentamicin Sulfate (Gentamicin Inj) 240 mg STK-MED ONCE .ROUTE Last administered on 11/22/17at 05:13; Start 11/22/17 at 04:02; Stop 11/22/17 at 04:03; Status DC Bupivacaine HCl/ Epinephrine Bitart (Sensorcaine-Epinephrine Pf 0.5% Inj) 30 ml STK-MED ONCE .ROUTE ; Start 11/22/17 at 04:05; Stop 11/22/17 at 04:06; Status DC Vancomycin HCl (Vancomycin Inj) 1,000 mg STK-MED ONCE .ROUTE Last administered on 11/22/17at 05:03; Start 11/22/17 at 04:47; Stop 11/22/17 at 04:48; Status DC Levetriacetam (Keppra Inj) 1,000 mg STK-MED ONCE IV Last administered on at 05:39; Start 11/22/17 at 05:29; Stop 11/22/17 at 05:30; Status DC Thrombin (Thrombin Top Soln) 5,000 units STK-MED ONCE .ROUTE Last administered on 11/22/17at 05:36; Start 11/22/17 at 05:36; Stop 11/22/17 at 05:37; Status DC Norepinephrine Bitartrate (Levophed Inj) 4 mg STK-MED ONCE .ROUTE ; Start at 07:05; Stop 11/22/17 at 07:06; Status DC Fentanyl Citrate (fentaNYL INJ) 200 mcg STK-MED ONCE .ROUTE ; Start 11/22/17 at 07:20; Stop 11/22/17 at 07:21; Status DC Vancomycin HCl 1000 mg/Sodium Chloride 250 ml @ 250 mls/hr ONCE ONCE IV ; Start 11/22/17 at 07:30; Stop 11/22/17 at 07:30; Status DC Vancomycin/Sodium Chloride 200 ml @ 200 mls/hr ONCE ONCE IV Last administered on 11/22/17at 09:17; Start 11/22/17 at 07:30; Stop 11/22/17 at 08:29; Status DC Phenylephrine HCl 80 mg/Dextrose 500 ml @ 15 mls/hr TITRATE PRN IV Blood pressure Management; Start 11/22/17 at 07:30; Stop 11/22/17 at 20:31; Status DC Terbutaline Sulfate (Brethine Inj) 1 mg UNSCH PRN SQ For Extravasation; Start 11/22/17 at 07:30 Levetriacetam 500 mg/Sodium Chloride 105 ml @ 420 mls/hr Q12H IV Last administered on 12/01/17at 05:24; Start 11/22/17 at 17:00 Docusate Sodium (Colace Liq) 100 mg Q12HR PO Last administered on 12/01/17at 08: 40; Start 11/22/17 at 09:00 Sennosides (Senna Liq) 8.8 mg DAILY PO Last administered on 11/23/17at 10:00; Start 11/22/17 at 09:00; Stop 11/23/17 at 16:03; Status DC Norepinephrine Bitartrate 4 mg/ Sodium Chloride 250 ml @ 7.5 mls/hr TITRATE PRN IV Blood pressure management Last administered on 11/27/17at 03:59; Start 11/22/17 at 17:45 Terbutaline Sulfate (Brethine Inj) 1 mg UNSCH PRN SQ For Extravasation; Start 11/22/17 at 17:45; Stop 11/29/17 at 10:47; Status DC Phenylephrine HCl 80 mg/Sodium Chloride 500 ml @ 15 mls/hr TITRATE PRN IV Blood pressure Management; Start 11/22/17 at 20:45; Stop 11/29/17 at 10:47; Status DC Potassium Chloride 100 ml @ 25 mls/hr Q4H IV Last administered on 11/23/17at 15: 26; Start 11/23/17 at 09:00; Stop 11/23/17 at 16:59; Status DC Morphine Sulfate (Morphine Inj) 2 mg Q3H PRN IV PUSH pain 1-5 Last administered on 11/29/17at 12:43; Start 11/23/17 at 10:30; Stop 11/29/17 at 15:12 ; Status DC Morphine Sulfate (Morphine Inj) 4 mg Q3H PRN IV PUSH pain 6-10 Last administered on 11/29/17at 03:10; Start 11/23/17 at 10:30; Stop 11/29/17 at 15:12 ; Status DC Sennosides (Senna Liq) 8.8 mg BID NG Last administered on 12/01/17at 08:41; Start 11/23/17 at 21:00 Albuterol/ Ipratropium (Duoneb Neb) 1 ampule Q6HR NEB NEB Last administered on 11/27/17at 08:19; Start 11/23/17 at 16:00; Stop 11/27/17 at 11:40; Status DC Albuterol Sulfate (Albuterol Neb) 2.5 mg Q2HR NEB PRN NEB dyspnea; Start at 16:00 Lansoprazole (Prevacid Odt) 30 mg DAILY NG Last administered on 12/01/17at 08:40 ; Start 11/24/17 at 09:00 Artificial Tears (Tears Naturale Opth Soln) 1 drop Q8HR EACH EYE Last administered on 12/01/17at 05:24; Start 11/23/17 at 22:00 Morphine Sulfate (Roxanol Liq) 5 mg Q6HR PO Last administered on 11/27/17at 05: 55; Start 11/23/17 at 18:00; Stop 11/27/17 at 11:40; Status DC Potassium Chloride 100 ml @ 25 mls/hr BOLUS ONCE IV Last administered on at 07:50; Start 11/24/17 at 07:00; Stop 11/24/17 at 10:59; Status DC Potassium Phosphate 30 mmol/ Sodium Chloride 260 ml @ 43.333 mls/ hr ONCE ONCE IV Last administered on 11/24/17at 07:50; Start 11/24/17 at 07:00; Stop at 12:59; Status DC Midazolam HCl 100 ml @ 2 mls/hr TITRATE PRN IV SEDATION Last administered on at 02:03; Start 11/24/17 at 11:00 Water (Free Water) VOLUME: 250 ML Q6HR G-TUBE Last administered on 11/25/17at 11 :57; Start 11/24/17 at 18:00; Stop 11/25/17 at 17:59; Status DC Potassium Phosphate 30 mmol/ Sodium Chloride 260 ml @ 43.333 mls/ hr ONCE ONCE IV Last administered on 11/25/17at 14:14; Start 11/25/17 at 15:00; Stop 08/02 at 20:59; Status DC Lactated Ringer's 1,000 ml @ As Directed STK-MED ONCE IV ; Start 11/22/17 at 12: 00; Stop 11/27/17 at 08:48; Status DC Sodium Chloride 750 ml @ As Directed STK-MED ONCE IV ; Start 11/22/17 at 12:00; Stop 11/27/17 at 08:48; Status DC Lidocaine HCl (Xylocaine-Mpf 1% Inj) 5 ml STK-MED ONCE OTHER ; Start 11/22/17 at 12:00; Stop 11/27/17 at 08:48; Status DC Rocuronium [place] (Zemuron Inj) 100 mg STK-MED ONCE IV PUSH ; Start 11/22/17 at 12:00; Stop 11/27/17 at 08:48; Status DC Phenylephrine HCl (Neosynephrine/ NS 1000 Mcg/10ml Syr) 2,000 mcg STK-MED ONCE IV ; Start 11/22/17 at 12:00; Stop 11/27/17 at 08:48; Status DC Phenylephrine HCl (Neosynephrine Inj) 20 mg STK-MED ONCE IV ; Start 11/22/17 at 12:00; Stop 11/27/17 at 08:48; Status DC Ephedrine Sulfate (ePHEDrine/NS 25 MG/5 ML SYR) 25 mg STK-MED ONCE IV ; Start at 12:00; Stop 11/27/17 at 08:48; Status DC Propofol (Diprivan 200 Mg/20 ml Inj) 200 mg STK-MED ONCE IV ; Start 11/22/17 at 12:00; Stop 11/27/17 at 08:48; Status DC Lidocaine/ Epinephrine (Xylocaine-Epi 2%-1:100,000 Inj) 20 ml ONCE ONCE INFIL Last administered on 11/27/17at 11:11; Start 11/27/17 at 11:00; Stop 11/27/17 at 11:01; Status DC Albuterol/ Ipratropium (Duoneb Neb) 1 ampule Q6HR NEB NEB Last administered on 12/01/17at 08:34; Start 11/27/17 at 16:00; Stop 12/01/17 at 10:38; Status DC Morphine Sulfate (Roxanol Liq) 10 mg Q6HR NG Last administered on 11/29/17at 11: 39; Start 11/27/17 at 12:00; Stop 11/29/17 at 13:21; Status DC Water (Free Water) VOLUME: 300 ML Q6HR G-TUBE Last administered on 11/28/17at 11 :44; Start 11/27/17 at 12:45; Stop 11/28/17 at 12:54; Status DC Enoxaparin Sodium (Lovenox Inj) 40 mg Q24H SQ Last administered on 11/30/17at 15 :53; Start 11/27/17 at 16:00 Sodium Chloride 38.5 meq/Sterile Water 1,009.625 ml @ 100 mls/hr Q10H6M IV Last administered on 11/28/17at 14:22; Start 11/28/17 at 14:00; Stop 11/29/17 at 00:00; Status DC Potassium Chloride 100 ml @ 25 mls/hr BOLUS ONCE IV Last administered on 11/28at 14:08; Start 11/28/17 at 12:45; Stop 11/28/17 at 16:44; Status DC Potassium Phosphate 15 mmol/ Sodium Chloride 155 ml @ 38.75 mls/ hr ONCE ONCE IV Last administered on 11/28/17at 15:30; Start 11/28/17 at 15:00; Stop at 18:59; Status DC Water (Free Water) VOLUME: 300 ML Q4HR G-TUBE Last administered on 11/28/17at 15 :30; Start 11/28/17 at 16:00; Stop 11/28/17 at 17:43; Status DC Water (Free Water) VOLUME: 300 ML Q6HR G-TUBE Last administered on 11/30/17at 06 :47; Start 11/28/17 at 18:00; Stop 11/30/17 at 08:50; Status DC Morphine Sulfate (Roxanol Liq) 10 mg Q4HR NG Last administered on 12/01/17at 11: 02; Start 11/29/17 at 16:00 Polyethylene Glycol (Miralax) 17 gm BID NG Last administered on 12/01/17at 08:41 ; Start 11/29/17 at 21:00 Lactulose (Lactulose Liq) 30 ml ONCE ONCE PO Last administered on 11/29/17at 16 :45; Start 11/29/17 at 13:30; Stop 11/29/17 at 15:06; Status DC Lactulose (Lactulose Liq) 30 ml DAILY PO Last administered on 12/01/17at 08:40; Start 11/30/17 at 09:00 Alteplase, Recombinant (Cathflo Activase Inj) 2 mg ONCE ONCE INTRACATH Last administered on 11/29/17at 16:44; Start 11/29/17 at 14:15; Stop 11/29/17 at 14:57 ; Status DC Alteplase, Recombinant (Cathflo Activase Inj) 2 mg Q2H PRN INTRACATH occluded catheter; Start 11/29/17 at 14:15 Morphine Sulfate (Morphine Inj) 3 mg Q2HR PRN IV PUSH pain 6-10; Start at 15:15 Morphine Sulfate (Morphine Inj) 2 mg Q2HR PRN IV PUSH pain 1-5; Start 11/29/17 at 15:15 Potassium Chloride (KCl Powder) 40 meq ONCE ONCE NG Last administered on at 18:42; Start 11/29/17 at 17:15; Stop 11/29/17 at 17:16; Status DC Potassium Chloride (KCl Powder) 40 meq ONCE ONCE NG Last administered on at 07:30; Start 11/30/17 at 07:30; Stop 11/30/17 at 07:45; Status DC Rocuronium [place] (Zemuron Inj) 50 mg STK-MED ONCE .ROUTE ; Start 11/30/17 at 08:24; Stop 11/30/17 at 08:25; Status DC Rocuronium [place] (Zemuron Inj) 50 mg BOLUS ONCE IV Last administered on 11/30at 08:45; Start 11/30/17 at 08:45; Stop 11/30/17 at 08:46; Status DC Midazolam HCl (Versed Inj) 5 mg ONCE ONCE IV PUSH Last administered on at 08:45; Start 11/30/17 at 08:45; Stop 11/30/17 at 08:46; Status DC Sodium Chloride (NS Flush) DAILY IV FLUSH Last administered on 12/01/17at 09:00 ; Start 11/30/17 at 09:00 Sodium Chloride (NS Flush) UNSCH PRN IV FLUSH SEE PROTOCOL; Start 11/30/17 at 08:45 Water (Free Water) VOLUME: 300 ML Q8HR G-TUBE Last administered on 12/01/17at 05 :25; Start 11/30/17 at 14:00 Acetaminophen (Tylenol 650 Mg/ 20 ml Liq) 650 mg Q6H PRN NG fever; Start at 09:00 Methylnaltrexone [place] (Relistor Inj) 12 mg ONCE ONCE SQ Last administered on 11/30/17at 09:00; Start 11/30/17 at 09:00; Stop 11/30/17 at 09:01; Status DC Lactated Ringer's 1,000 ml @ As Directed STK-MED ONCE IV ; Start 11/20/17 at 12: 00; Stop 12/01/17 at 07:59; Status DC Lidocaine HCl (Xylocaine-Mpf 1% Inj) 5 ml STK-MED ONCE OTHER ; Start 11/20/17 at 12:00; Stop 12/01/17 at 07:59; Status DC Succinylcholine Chloride (Quelicin Inj) 200 mg STK-MED ONCE IV ; Start 11/20/17 at 12:00; Stop 12/01/17 at 07:59; Status DC Dexamethasone Sodium Phosphate (Decadron Inj) 4 mg STK-MED ONCE IV ; Start at 12:00; Stop 12/01/17 at 07:59; Status DC Ondansetron HCl (Zofran Inj) 4 mg STK-MED ONCE IV ; Start 11/20/17 at 12:00; Stop 12/01/17 at 07:59; Status DC Propofol (Diprivan 200 Mg/20 ml Inj) 200 mg STK-MED ONCE IV ; Start 11/20/17 at 12:00; Stop 12/01/17 at 07:59; Status DC Labetalol HCl (Trandate Inj) 10 mg Q1HR PRN IV PUSH SBP>160, DBP>90, HR>65 Last administered on 12/01/17at 11:43; Start 12/01/17 at 12:00 Potassium Chloride (KCl Powder) 20 meq ONCE ONCE PO Last administered on at 11:43; Start 12/01/17 at 12:00; Stop 12/01/17 at 12:01; Status DC Enalaprilat (Vasotec Inj) 1.25 mg Q6H PRN IV PUSH SBP>160, DBP>90; Start at 12:00 Albuterol/ Ipratropium (Duoneb Neb) 1 ampule Q6HR NEB NEB ; Start 12/01/17 at 16:00 Nitroglycerin (Nitroglycerin 2% Oint) 2 inch Q6HR PRN TOPICAL SBP>160, DBP>90; Start 12/01/17 at 12:00 Physical Exam HEENT: normocephalic; atraumatic; intubated CHEST: coarse CARDIAC: RRR ABDOMEN: Soft, round, no hepatosplenomegaly; bowel sounds soft EXTREMITIES: No clubbing, cyanosis, or edema. 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 CT of the abdomen/pelvis done and that was significant for cholelithiasis and mild prominence of the biliary tree with questionable filling defect in the distal common bile duct, suspicious for stone versus mass. Labs with normal LfTs, high Lipase 2544. Patient reports subjective fever and chills. CBC unremarkable. Patient denies abd pain, change in bowels, change in urine, hematemesis or hematochezia. Denies previous hx of pancreatitis or liver disease, denies alcohol or illicit drug use. Reports nausea and one episode of vomiting the day before yesterday. - Hx of celiac dz- last EGD 5 yrs ago per pt, has been following gluten free diet, she consumes gluten every now and then but minimal - UTI- urine cx pending - involuntary leg spasms that wasn't relived with morphine. per attending - past medical history significant for chronic pain with morphine pump, fibromyalgia, per attending 11/21/17 s/p ERCP with sphincterotomy and balloon extraction, finding choledocholithiasis. AST worsened today, mild increase 0.8. tumor markers WNL. lipase WNL. WBC significant increase today, appears diaphoretic. tachycardic. 11/22/17 s/p crani for hemorrhage. in ISC now intubated. LFTs improving. CT abd unremarkable. 12/01/17 s/p hemorrhagic stroke. GI reconsulted for PEG tube placement. d/w family Yvette Vasquez [phone] and she is agreeable to proceed. Plan: - EGD with PEG tube placement monday if family agrees - obtain consent - hold TF after MN monday night - abx convolute tube winder, is allergic to PCN - hold lovenox Monday afternoon - supportive care pt seen by myself and Dr Don and this note is written on his behalf (Columba Malhotra) Physician Comments Patient seen and examined Agree with above Continue with current supportive care Monitor labs Plan on EGD with PEG on Monday (Davey Don MD) Columba Malhotra Dec 01, 2017 13:12 Davey Don MD Dec 01, 2017 19:02
[2017-12-01] MEDS: ENOXAPARIN SODIUM 40 MG/0.4 ML SYRINGE SQ SCH (15:57)
[2017-12-02] VITALS (18 sets, daily range): BP systolic 103–139; BP diastolic 55–81; PULSE 99–124; RESP 18–28; TEMP 98.4–99.1; O2SAT 99–100
[2017-12-02 04:29] LABS: AUTOMATED NEUTROPHIL # 8.9 TH/MM3 (1.8-7.7); BASOPHIL # 0.2 TH/MM3 (0-0.2); BASOPHIL % 1.4 % (0.0-2.0); EOSINOPHIL # 0.4 TH/MM3 (0-0.4); EOSINOPHIL % 2.9 % (0.0-4.0); HEMATOCRIT 24.4 % (35.0-46.0); LYMPH % 15.2 % (9.0-44.0); LYMPHOCYTE # 1.8 TH/MM3 (1.0-4.8); MEAN CELL VOLUME 84.7 FL (80.0-100.0); MEAN CORPUSCULAR HEMOGLOBIN 27.7 PG (27.0-34.0); MEAN CORPUSCULAR HGB CONC 32.7 % (32.0-36.0); MEAN PLATELET VOLUME 9.6 FL (7.0-11.0); MONO % 6.2 % (0.0-8.0); MONOCYTE # 0.8 TH/MM3 (0-0.9); NEUT % 74.3 % (16.0-70.0); PLATELET COUNT 309 TH/MM3 (150-450); RED BLOOD COUNT 2.88 MIL/MM3 (4.00-5.30); RED CELL DISTRIBUTION WIDTH 15.7 % (11.6-17.2)
[2017-12-02] MEDS: levETIRAcetam INJ 500 MG in SODIUM CHLORIDE 0.9% INJ 100 ML IV SCH ×2 (04:34→17:25)
[2017-12-02] MEDS: MORPHINE SULFATE ORAL SOLN 10 MG/0.5 ML SYRINGE NG SCH ×5 (04:45→21:12)
[2017-12-02] MEDS: RESP: ALBUTEROL 2.5 MG/IPRATROPIUM 0.5 MG NEB (SCH) NEB ×4 (05:45→20:23)
[2017-12-02] MEDS: ARTIFICIAL TEARS OPTH SOLN 15 ML BTL EACH EYE SCH ×3 (05:47→22:30)
[2017-12-02] MEDS: FREE WATER G-TUBE SCH ×3 (05:48→22:00)
[2017-12-02] MEDS ORDERED: MIDAZOLAM HCL 2 MG/2 ML VIAL IV PUSH ONE (08:15)
[2017-12-02] MEDS: SENNOSIDES SYRUP 8.8 MG/5 ML CUP NG SCH ×2 (08:30→21:07)
[2017-12-02] MEDS: POLYETHYLENE GLYCOL 17 GM PKG NG SCH ×2 (08:30→21:07)
[2017-12-02] MEDS ORDERED: ROCURONIUM INJ 50 MG/5 ML VIAL IV ONE (08:30)
[2017-12-02] MEDS: LANSOPRAZOLE SOLUTAB 30 MG TAB NG SCH (08:30)
[2017-12-02] MEDS: LACTULOSE SYRUP 20 GM/30 ML CUP PO SCH (08:30)
[2017-12-02] MEDS: DOCUSATE SODIUM 100 MG/10 ML UDC PO SCH ×2 (08:30→21:07)
[2017-12-02] MEDS: SODIUM CHLORIDE 0.9% FLUSH 10 ML FLUSH IV FLUSH SCH ×3 (08:32→21:07)
[2017-12-02] MEDS: TRIAMCINOLONE ACETONIDE 0.1% CREAM 15 GM TOPICAL SCH ×2 (09:00→22:30)
[2017-12-02] MEDS: ALTEPLASE RECOMBINANT 2 MG VIAL INTRACATH PRN (09:13)
--- NOTE | 2017-12-02 09:40 | HHI.CCPN ---
Subjective Remarks/Hospital Course 62-year-old female with a past medical history significant for chronic pain with morphine pump, fibromyalgia, celiac disease and anxiety presented initially to the hospital for evaluation of leg spasms. The patient reports that she woke up approximately 1 AM and "could not control her legs." Her daughter gave her a 30 mg tablet of morphine to help with her symptoms yet they persisted. She was admitted to [facility] floor for further evaluation where she became suddenly lethargic and weak on the right side. The CT of the head was done immediately and shows large posterior parietal lobe hemorrhagic stroke with brain edema. She was immediately intubated for an airway protection and started on hyperosmolar therapy. 11/22: Patient underwent Left parietal craniotomy for intracerebral hematoma evacuation; Left frontal gt hole placement for ventriculostomy by Dr. Womack. Seen in the ICU immediately postop. Profoundly hypotensive systolic blood pressure initially in the 50s. Stat bolus of LR was ordered by anesthesia. Levophed increased to 12 mcg/min with improvement in systolic blood pressure to 110s. We will place arterial line. Currently patient is under the influence of anesthesia, not moving any extremities 11/23: T-max 101.1. Continues to be febrile. Placing NG tube and Julian catheter. Right upper extremity without movement. Withdraws right lower externally. Spontaneous movement to left upper and lower extremity. Starting on tube feeding. 11/24: Tmax 101.1. Currently. 2 bowel movement overnight. Urine with Escherichia coli/staph epi in blood. Potassium phosphorus been replaced. Hypertonic saline held due to sodium 160+. Very arousable off sedation with ICP is controlled. 11/25: Continues to spike intermittent fevers. Tolerating tube feeding at goal. With persistent fevers we will consult infectious disease. ICPs are well controlled. Sodium remains at 163. 11/26: no significant changes. hyperosmolar therapy continues. peak pressures elevated today into the 40s, but plateau pressure 19, suggestive of a flow restriction. given albuterol neb and changed to PRVC mode from VCV with improvement in peak pressures. 11/27: T-max 101.5. Currently 100.9. Planned ventriculostomy removal today. Will discuss with neurosurgery initiation of of pharmacological treatment for bilateral upper extremity deep venous thrombosis. Tolerating tube feeds goal will be 55 cc an hour 11/28: Tmax 101.4. Currently afebrile. Currently on enoxaparin 40 mg subcutaneous daily. Will advance to full dose anticoagulation once okay with neurosurgery. Tolerating tube feeds at goal. 11/29: Tmax 101.1. Currently 99.9. Resting in bed in no distress. Tolerating tube feeds. 11/30: Tmax 101.5. Currently afebrile. Central line has been exchanged to a left IJ CVL. Tolerating tube feeds at goal. PSV trial ongoing. 12/01: Tmax 99.7. Currently 98.2.. Central line exchanged yesterday. Will attempt PSV trial today. Atelectasis. Okayed for tracheostomy per neurosurgery. We'll coordinate PEG tube placement as well possibly this . Will discuss with daughter. Subjective 12/02: On midazolam drip at 3 mg an hour. Plan for tracheostomy this AM. Hemodynamically stable. Objective Vital Signs Date Time Temp Pulse Resp B/P (MAP) Pulse Ox O2 Delivery O2 Flow Rate FiO2 12/02/17 08:11 100 40 12/02/17 06:00 118 12/02/17 04:00 99.0 18 112/75 (87) Intake and Output 12/02/17 12/02/17 12/03/17 08:00 16:00 00:00 Intake Total 1025 ml Output Total 1400 ml Balance -375 ml Result Diagram: 12/02/17 0400 12/01/17 0600 Other Results Microbiology Date/Time Source Procedure Growth Status 11/25/17 17:50 Blood Line Aerobic Blood Culture - Final NO GROWTH IN 5 DAYS Complete 11/25/17 17:50 Blood Line Anaerobic Blood Culture - Final NO GROWTH IN 5 DAYS Complete 11/26/17 15:00 Cerebral Spinal Fluid Lumbar Puncture Fungal Smear - Final NO FUNGAL ELEMENTS SEEN. Resulted 11/26/17 15:00 Cerebral Spinal Fluid Lumbar Puncture Fungal Culture Pending Resulted 11/25/17 16:40 Urine Catheterized Urine Urine Culture - Final NO GROWTH IN 48 HOURS. Complete Imaging Last Impressions Chest X-Ray 11/30/17 0839 Signed Impressions: Service Date/Time: November 08:43 - CONCLUSION: 1. Stable tubes and lines. 2. Stable left lower lung zone airspace disease. 3. No significant interval change. David Bacon MD Head CT 11/26/17 0000 Signed Impressions: Service Date/Time: Monday, November 27, 2017 04:18 - CONCLUSION: Decreased pneumocephalus, stable intracranial intra-axial extra-axial hemorrhage and left parietal edema, with postsurgical changes and midline shift. Ariel Nath MD Upper Extremity Ultrasound 11/25/17 0000 Signed Impressions: Service Date/Time: Saturday, November 25, 2017 18:56 - CONCLUSION: Positive for deep venous thrombosis bilateral extremities, right worse than left. Anurag Carrion MD Lower Extremity Ultrasound 11/25/17 0000 Signed Impressions: Service Date/Time: Saturday, November 25, 2017 17:50 - CONCLUSION: Negative for deep venous thrombosis bilateral lower extremity. Anurag Carrion MD Abdomen/Pelvis CT 11/21/17 0000 Signed Impressions: Service Date/Time: Tuesday, November 21, 2017 21:37 - CONCLUSION: 1. No evidence to indicate pancreatitis. 2. Multiple stones in the gallbladder. 3. Multiple bilateral renal calculi.. 4. No significant changes compared to the prior exam. Meir Donnelly MD GI Procedure 11/20/17 0000 Signed Impressions: Service Date/Time: Monday, November 20, 2017 16:40 - CONCLUSION: ERCP as above. Jose Echevarria MD Objective Remarks GENERAL: 64-year-old female currently orotracheally intubated SKIN: Warm and dry. HEAD: Circumferential craniotomy dressing in place and left frontal EVD in place EYES: No scleral icterus. No injection or drainage. Pupils bilaterally 4 mm sluggish ENT: Orotracheally intubated. No thrush NECK: Supple, trachea midline. No JVD. Left IJ CVL is clean dry and intact as well. CARDIOVASCULAR: Tachycardic, RR. Without murmurs, gallops, or rubs. RESPIRATORY: Breath sounds equal bilaterally. No accessory muscle use. no wheezing. good air entry. GASTROINTESTINAL: Abdomen soft, non-tender, nondistended. Subcutaneous morphine pump in the right upper quadrant without mottling MUSCULOSKELETAL: Bilateral upper extremity edema NEURO EXAM: Patient is intubated, sedated. pupils equal, round, reactive. No withdrawal in any extremities no movement right upper extremity. Withdraws to pain right lower extremity. Spontaneous moving left upper and lower extremity. Nods head to simple answers appropriately. Vascular Central Line Catheter: Yes Assessment to: Continue Date of Insertion: Nov 30, 2017 Line: Central Venous Catheter Side: Left Location: Internal, Jugular A/P Assessment and Plan NEURO/PSYCH: Large acute intraparenchymal hemorrhage involving the left parietal lobe Midline shift to the right by 9 mm Bonilla tip barachnoid hemorrhage and cerebral edema on the left side Depression/anxiety Chronic pain on Morphine pump Chronic opioid use [place] History of C-spine fusion Status post left parietal craniotomy for intracerebral hematoma evacuation, Left frontal gt hole placement for ventriculostomy by Dr. Womack. Left ventric removed 11/27 - 3% sodium chloride infusion, target Na 150-155 currently on hold is currently 153 -Currently on levetiracetam 500 mg IV every 12 hours -Propofol switched to midazolam drip due to hypotension currently at 3 mg an hour Holding buspirone 30 mg twice daily and venlafaxine 50 mg twice daily for depression/anxiety. Resume when clinically indicated Holding acetaminophen/hydrocodone 325/7.51 tab every 6 hours as needed pain Holding scheduled morphine sulfate 30 mg every 12 hours Morphine liquid 10 mg every 6 hours scheduled with 1-2 mg every 3 hours as needed pain 1 through 10 Acetaminophen 650 mg every 6 hours as needed for fever RESP: Acute respiratory failure Ongoing tobaccoism COPD - Intubated for an airway protection PRVC 14/550/10/20/39 PSV trials daily as tolerated Ventilator bundle Albuterol/ipratropium aerosols every 6 hours with albuterol aerosols every 2 hours as needed dyspnea Tobacco cessation booklet provided with appropriate CVS: Hypotension/shock Mild lactic acidosis History of hypertension -Currently off norepinephrine target map above 65 by calculation CPP 50-70. - 3% saline currently on hold with sodium currently 153 - Hold metoprolol and lisinopril while on vasopressors/borderline mean arterial pressure GI: Acute pancreatitis - resolved Opioid-induced constipation Cholelithiasis History of celiac disease 11/21/17 s/p ERCP with sphincterotomy and balloon extraction, finding choledocholithiasis. increase 0.8. tumor markers WNL. lipase WNL. WBC significant increase today, appears diaphoretic. tachycardic. GI signed off Currently holding tube feedings with vital 1.5 goal 55 cc an hour per nutrition' s recommendations with PEG tube plan/tracheostomy planned Lansoprazole 30 mg daily for GI prophylaxis. Continue docusate sodium 100 mg twice daily and senna 8.6 mg twice daily. Patient is on polyethylene glycol 17 g twice daily at home for constipation which is been continued along with lactulose 30 cc daily : Julian catheter for accurate I's and O's in a critically ill patient FEN/RENAL: Acute kidney insufficiency Nephrolithiasis Hypernatremia Hyper-magnesium - Monitor renal function closely, maintain Julian Free water 300 cc every 8 hours ID: E. coli UTI Coag negative staph bacteremia hold ceftriaxone per infectious disease Pertinent cultures 11/26 -CSF -no growth 11/25 -blood cultures 2 -no growth 11/19 -UA -pansensitive E. coli 11/20 -blood cultures 2 -coag negative staph/staph epi pansensitive 11/22 -blood cultures 2 -no growth to date Appreciate infectious disease for further antibiotic coverage HEME: Leukocytosis Normocytic anemia Sickle cell trait? Right subclavian/axillary and brachial DVT. Left cephalic superficial thrombus/ brachial thrombus - Leukocytosis most likely stress related - Monitor CBC daily. Follow trend Upper extremity also revealed bilateral superficial and deep venous thrombus as above DVT GI prophylaxis - Teds SCDs - No pharmacological DVT prophylaxis due to acute ICH. Discuss with neurosurgery 11/27 start enoxaparin 40 mg subcu daily at least - Iansoprazole 30 mg by tube daily Access - Left IJ CVL day 2 placed 11/30 Level II follow-up Rafael Saldana MD Dec 02, 2017 09:40
[2017-12-02] MEDS ORDERED: NOREPINEPHRINE 4 MG/4 ML AMP ONE (11:24)
[2017-12-02] MEDS ORDERED: TERBUTALINE INJ 1 MG/ML AMP SQ PRN (11:30)
[2017-12-02] MEDS ORDERED: NOREPINEPHRINE INJ 4 MG in SODIUM CHLOR 0.9% 250 ML INJ 246 ML IV PRN (11:30)
--- NOTE | 2017-12-02 12:13 | PD.PROCEDR ---
Procedure Note Procedure DATE: 12/02/2017 Percutaneous tracheostomy: #8 Shiley cuffed INDICATION: Vent dependent respiratory failure CONSENT Informed consent for procedure was obtained from Daughter. DESCRIPTION OF THE PROCEDURE The patient was placed in supine position. A timeout was performed verifying the patient, surgical site procedure. Position towel roll behind the shoulder blades. Neck was prepped with ChloraPrep. Secured in a sterile fashion. ACV 14/500/5/100. Patient was on a midazolam drip at 3 mg an hour. She received 50 g fentanyl IV, 10 mg midazolam IV and 50 mg rocuronium. Attention was directed to midline trachea or the cricothyroid membrane was palpated. Approximately 2 finger breaths above the sternal notch a midline vertical incision was created with the scalpel after local nutrition with 0.5% lidocaine with epinephrine. Next, dissection carried forth down to the subcutaneous tissue with hemostats. Palpated the second tracheal ring. Using the Seldinger technique and a per case tracheostomy set trachea was entered with a 14-gauge needle. This is UNDER DIRECT PHYSICIAN FIBEROPTIC FLEXIBLE BRONCHOSCOPY. FOLLOWING THIS. A GUIDEWIRE WAS INSERTED. THE NEEDLE WAS REMOVED LEAVING THE SHEATH IN THE GUIDEWIRE INTACT. A SMALL DILATOR WAS INSERTED 2. THE TRACHEAL RINGS WERE THEN SERIALLY DILATED. A #8 SHILEY WAS THEN OPENED. BALLOON WAS CHECKED. HIS POSTOPERATIVE TRACHEAL DILATOR WHICH WAS ADVANCED OVER GUIDEWIRE AND THROUGH THE PREVIOUSLY DILATED TRACT. THE SHILEY TRACHEOSTOMY TUBE WAS NOTED TO PAST THE TRACHEAL NO RESISTANCE. The guidewire dilator tubes were removed from the trachea. An inner cannula was placed the tracheostomy tube. The ventilator was attached to the nucleus tracheostomy tube with adequate tidal volumes. No evidence of cuff leak. No evidence of bleeding. The tracheostomy was secured to the anterior neck with 2.0 silk. T ESTIMATED BLOOD LOSS: Minimal COMPLICATIONS: No apparent complications. Dr. Shelton was present throughout the entire procedure and was involved during the flexible bronchoscopy portion STAT chest x-ray pending at time of dictation Rafael Saldana MD Dec 02, 2017 12:13
--- NOTE | 2017-12-02 12:40 | RADRPT ---
EXAM DATE/TIME: 12/02/2017 12:10 [facility] COMPARISON: CHEST SINGLE AP, November 26, 2017, 4:57. CHEST SINGLE AP, November 30, 2017, 8:43. INDICATIONS : Trach placement. MEDICAL HISTORY : Cardiovascular disease. Chronic obstructive pulmonary disease. Gastroesophageal reflux disease.C eliac disease. Fibromyalgia. SURGICAL HISTORY : Tubal ligation. Fusion, cervical.Cardiac cath. ENCOUNTER: Initial ACUITY: 1 day PAIN SCORE: Non-responsive. LOCATION: Bilateral chest FINDINGS: Interval placement of tracheostomy with tip at the level of the clavicles. NG tube has been removed. Right IJ central line has been removed. Stable left IJ central line. Persistent mild patchy bibasilar airspace disease. Persistent prominence of the right peritracheal region. No significant pneumothora x. Cardiomediastinal contours are stable. Remainder of the exam is unchanged. CONCLUSION: 1. Tracheostomy in good position. Stable left IJ catheter. 2. Otherwise, no significant interval change. 3. Persistent patchy bilateral lower lung zone airspace disease. 4. Persistent prominence of the right paratracheal region. David Bacon MD on December 02, 2017 at 12:35 Board Certified Radiologist. This report was verified electronically.
--- NOTE | 2017-12-02 13:03 | PD.PROCEDR ---
Procedure Note Procedure DX: Respiratory Failure OP: Flexible Bronchoscopy (08590) Procedure: Time out. Through a side port above the indwelling orotracheal tube the scope was passed into the trachea. The bronchial segments wer suctioned for small amounts of secretions. The scope and ET tube were then withdrawn to the cricoid level in the trachea and used to provide visualization for a percutaneous tracheostomy. After the trach insertion the scope was introduced through the new tracheostomy tube and confirmed good position of the tube in the main trachea, safely above the lazaro. No bleeding was observed. Sats were maintained above 95% throughout the procedure. Full tidal volumes were returned with mechanical breaths. Reyes Shelton MD Dec 02, 2017 13:03
--- NOTE | 2017-12-02 13:41 | RADRPT ---
EXAM DATE/TIME: 12/02/2017 13:24 [facility] COMPARISON: No previous studies available for comparison. INDICATIONS : Confirm NG tube placement. MEDICAL HISTORY : Cardiovascular disease. Chronic obstructive pulmonary disease. Gastroesophageal reflux disease.Celiac disease. Fibromyalgia. SURGICAL HISTORY : Tubal ligation. Fusion, cervical. Cardiac cath. ENCOUNTER: Initial ACUITY: 1 day PAIN SCORE: Non-responsive. LOCATION: Bilateral abdomen. FINDINGS: NG tube is centered in the lower mid hemithorax likely in the distal esophagus with tip near the GE j unction. Contrast is seen throughout the colon likely from prior administration. No dilated loops of bowel. No abnormal calcifications. Osseous structures are intact. CONCLUSION: 1. Suction type nasogastric catheter tip is likely in the distal esophagus. David Bacon MD on December 02, 2017 at 13:38 Board Certified Radiologist. This report was verified electronically.
--- NOTE | 2017-12-02 13:52 | HHI.GIFU ---
Subjective Remarks Pt in bed. PEG planned for Monday. (Columba Malhotra) Objective Vitals I&O Vital Signs Date Time Temp Pulse Resp B/P (MAP) Pulse Ox O2 Delivery O2 Flow Rate FiO2 12/02/17 12:33 99 40 12/02/17 12:05 100 100 12/02/17 08:11 100 40 12/02/17 06:00 118 12/02/17 05:58 100 40 12/02/17 04:00 99.0 101 18 112/75 (87) 100 12/02/17 04:00 101 12/02/17 04:00 40 12/02/17 02:00 118 12/02/17 00:00 99.1 101 22 118/58 (78) 100 12/02/17 00:00 40 12/02/17 00:00 101 12/01/17 22:00 114 12/01/17 21:33 100 40 12/01/17 20:00 98.5 114 15 143/65 (91) 100 12/01/17 20:00 40 12/01/17 20:00 114 12/01/17 18:30 92 40 12/01/17 18:00 114 12/01/17 16:00 40 12/01/17 16:00 97.7 113 25 101/51 (68) 97 12/01/17 16:00 113 12/01/17 15:29 100 40 12/01/17 14:00 111 I/O 12/01/17 12/01/17 12/01/17 12/02/17 12/02/17 12/02/17 07:00 15:00 23:00 07:00 15:00 23:00 Intake Total 1137 ml 732 ml 1025 ml Output Total 1250 ml 2100 ml 1400 ml Balance -113 ml -1368 ml -375 ml Tube Feeding 537 ml 432 ml 425 ml Other 600 ml 300 ml 600 ml Output Urine Total 1250 ml 2100 ml 1400 ml # Bowel Movements 0 0 0 Laboratory Laboratory Tests Test 12/02/17 04:00 12/02/17 10:08 White Blood Count 12.0 Red Blood Count 2.88 Hemoglobin 8.0 Hematocrit 24.4 Mean Corpuscular Volume 84.7 Mean Corpuscular Hemoglobin 27.7 Mean Corpuscular Hemoglobin Concent 32.7 Red Cell Distribution Width 15.7 Platelet Count 309 Mean Platelet Volume 9.6 Neutrophils (%) (Auto) 74.3 Lymphocytes (%) (Auto) 15.2 Monocytes (%) (Auto) 6.2 Eosinophils (%) (Auto) 2.9 Basophils (%) (Auto) 1.4 Neutrophils # (Auto) 8.9 Lymphocytes # (Auto) 1.8 Monocytes # (Auto) 0.8 Eosinophils # (Auto) 0.4 Basophils # (Auto) 0.2 CBC Comment AUTO DIFF Differential Comment AUTO DIFF CONFIRMED Date/Time Source Procedure Growth Status 11/25/17 17:50 Blood Line Aerobic Blood Culture - Final NO GROWTH IN 5 DAYS Complete 11/25/17 17:50 Blood Line Anaerobic Blood Culture - Final NO GROWTH IN 5 DAYS Complete 11/26/17 15:00 Cerebral Spinal Fluid Lumbar Puncture Fungal Smear - Final NO FUNGAL ELEMENTS SEEN. Resulted 11/26/17 15:00 Cerebral Spinal Fluid Lumbar Puncture Fungal Culture Pending Resulted 11/25/17 16:40 Urine Catheterized Urine Urine Culture - Final NO GROWTH IN 48 HOURS. Complete Imaging Last Impressions Chest X-Ray 12/02/17 0000 Signed Impressions: Service Date/Time: Saturday, December 02, 2017 12:10 - CONCLUSION: 1. Tracheostomy in good position. Stable left IJ catheter. 2. Otherwise, no significant interval change. 3. Persistent patchy bilateral lower lung zone airspace disease. 4. Persistent prominence of the right paratracheal region. David Bacon MD Abdomen X-Ray 12/02/17 0000 Signed Impressions: Service Date/Time: Saturday, December 02, 2017 13:24 - CONCLUSION: 1. Suction type nasogastric catheter tip is likely in the distal esophagus. David Bacon MD Head CT 11/26/17 0000 Signed Impressions: Service Date/Time: Monday, November 27, 2017 04:18 - CONCLUSION: Decreased pneumocephalus, stable intracranial intra-axial extra-axial hemorrhage and left parietal edema, with postsurgical changes and midline shift. Ariel Nath MD Upper Extremity Ultrasound 11/25/17 0000 Signed Impressions: Service Date/Time: Saturday, November 25, 2017 18:56 - CONCLUSION: Positive for deep venous thrombosis bilateral extremities, right worse than left. Anurag Carrion MD Lower Extremity Ultrasound 11/25/17 0000 Signed Impressions: Service Date/Time: Saturday, November 25, 2017 17:50 - CONCLUSION: Negative for deep venous thrombosis bilateral lower extremity. Anurag Carrion MD Abdomen/Pelvis CT 11/21/17 0000 Signed Impressions: Service Date/Time: Tuesday, November 21, 2017 21:37 - CONCLUSION: 1. No evidence to indicate pancreatitis. 2. Multiple stones in the gallbladder. 3. Multiple bilateral renal calculi.. 4. No significant changes compared to the prior exam. Meir Donnelly MD GI Procedure 11/20/17 0000 Signed Impressions: Service Date/Time: Monday, November 20, 2017 16:40 - CONCLUSION: ERCP as above. Jose Echevarria MD Physical Exam HEENT: normocephalic; atraumatic; trach NGT CHEST: coarse CARDIAC: RRR ABDOMEN: Soft, round, no hepatosplenomegaly; bowel sounds soft EXTREMITIES: No clubbing, cyanosis, or edema. restraints SKIN: Normal; no rash; PRINCIPAL SOFTWARE ENGINEER: sedated on vent (Columba Malhotra STRUCTURAL DRAFTSMAN) Assessment and Plan Plan - Acute pancreatitis- likely biliary etiology. CT of the abdomen/pelvis done and that was significant for cholelithiasis and mild prominence of the biliary tree with questionable filling defect in the distal common bile duct, suspicious for stone versus mass. Labs with normal LfTs, high Lipase 2544. Patient reports subjective fever and chills. CBC unremarkable. Patient denies abd pain, change in bowels, change in urine, hematemesis or hematochezia. Denies previous hx of pancreatitis or liver disease, denies alcohol or illicit drug use. Reports nausea and one episode of vomiting the day before yesterday. - Hx of celiac dz- last EGD 5 yrs ago per pt, has been following gluten free diet, she consumes gluten every now and then but minimal - UTI- urine cx pending - involuntary leg spasms that wasn't relived with morphine. per attending - past medical history significant for chronic pain with morphine pump, fibromyalgia, per attending 11/21/17 s/p ERCP with sphincterotomy and balloon extraction, finding choledocholithiasis. AST worsened today, mild increase 0.8. tumor markers WNL. lipase WNL. WBC significant increase today, appears diaphoretic. tachycardic. 11/22/17 s/p crani for hemorrhage. in ISC now intubated. LFTs improving. CT abd unremarkable. 12/01/17 s/p hemorrhagic stroke. GI reconsulted for PEG tube placement. d/w family Yvette Vasquez [phone] and she is agreeable to proceed. 12/02/17 on vent. s/p bronch & trach. just had NGT placed, KUB pending. 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
[2017-12-02] MEDS: MIDAZOLAM 100 MG/100 ML INJ 100 ML IV PRN (14:26)
[2017-12-02 15:04] LABS: BICARBONATE 25.1 MEQ/L (21.0-32.0); CALCIUM 9.5 MG/DL (8.5-10.1); CREATININE 0.92 MG/DL (0.50-1.00); MAGNESIUM 3.1 MG/DL (1.5-2.5); PHOSPHORUS 3.8 MG/DL (2.5-4.9)
[2017-12-02 16:00] LABS: PROTHROMBIN TIME - PATIENT 10.6 SEC (9.8-11.6)
[2017-12-02] MEDS: ENOXAPARIN SODIUM 40 MG/0.4 ML SYRINGE SQ SCH (17:24)
[2017-12-02] MEDS ORDERED: BISACODYL 10 MG SUPP RECTAL ONE (19:30)
[2017-12-02] MEDS ORDERED: POTASSIUM CHLORIDE 20 MEQ PWD PACKET NG ONE (19:45)
[2017-12-03] VITALS (18 sets, daily range): BP systolic 102–125; BP diastolic 52–76; PULSE 95–118; RESP 18–27; TEMP 97.8–99; O2SAT 100
[2017-12-03] MEDS: MORPHINE SULFATE ORAL SOLN 10 MG/0.5 ML SYRINGE NG SCH ×6 (00:21→20:00)
[2017-12-03] MEDS: RESP: ALBUTEROL 2.5 MG/IPRATROPIUM 0.5 MG NEB (SCH) NEB ×4 (03:15→19:57)
[2017-12-03 04:38] LABS: BASOPHIL % 0.2 % (0.0-2.0); EOSINOPHIL # 0.1 TH/MM3 (0-0.4); EOSINOPHIL % 0.9 % (0.0-4.0); HEMATOCRIT 24.5 % (35.0-46.0); HEMOGLOBIN 8.1 GM/DL (11.6-15.3); LYMPH % 13.7 % (9.0-44.0); MEAN CELL VOLUME 85.1 FL (80.0-100.0); MEAN CORPUSCULAR HEMOGLOBIN 27.9 PG (27.0-34.0); MEAN CORPUSCULAR HGB CONC 32.8 % (32.0-36.0); MEAN PLATELET VOLUME 8.9 FL (7.0-11.0); MONO % 4.9 % (0.0-8.0); MONOCYTE # 0.7 TH/MM3 (0-0.9); NEUT % 80.3 % (16.0-70.0); PLATELET COUNT 388 TH/MM3 (150-450); RED BLOOD COUNT 2.88 MIL/MM3 (4.00-5.30); RED CELL DISTRIBUTION WIDTH 15.5 % (11.6-17.2); WHITE BLOOD COUNT 14.9 TH/MM3 (4.0-11.0)
[2017-12-03 04:57] LABS: BICARBONATE 26.4 MEQ/L (21.0-32.0); CALCIUM 9.5 MG/DL (8.5-10.1); CREATININE 0.95 MG/DL (0.50-1.00); MAGNESIUM 3.2 MG/DL (1.5-2.5); PHOSPHORUS 3.4 MG/DL (2.5-4.9)
[2017-12-03] MEDS: levETIRAcetam INJ 500 MG in SODIUM CHLORIDE 0.9% INJ 100 ML IV SCH (05:24)
[2017-12-03] MEDS: FREE WATER G-TUBE SCH ×3 (06:00→22:00)
[2017-12-03] MEDS: ARTIFICIAL TEARS OPTH SOLN 15 ML BTL EACH EYE SCH ×3 (06:00→22:00)
[2017-12-03] MEDS: MIDAZOLAM 100 MG/100 ML INJ 100 ML IV PRN (06:50)
[2017-12-03] MEDS ORDERED: GLYCERIN ADULT 2 GM SUPP RECTAL ONE (08:45)
[2017-12-03] MEDS ORDERED: MINERAL OIL EMULSION 55% PO ONE (08:45)
[2017-12-03] MEDS ORDERED: METHYLNALTREXONE BROMIDE 12 MG/0.6 ML VIAL SQ ONE (08:45)
[2017-12-03] MEDS: LANSOPRAZOLE SOLUTAB 30 MG TAB NG SCH (08:55)
[2017-12-03] MEDS: POLYETHYLENE GLYCOL 17 GM PKG NG SCH ×2 (08:56→21:00)
[2017-12-03] MEDS: SENNOSIDES SYRUP 8.8 MG/5 ML CUP NG SCH ×2 (08:56→21:00)
[2017-12-03] MEDS: DOCUSATE SODIUM 100 MG/10 ML UDC PO SCH ×2 (08:56→21:00)
[2017-12-03] MEDS ORDERED: LACTULOSE SYRUP 20 GM/30 ML CUP NG SCH (09:00)
[2017-12-03] MEDS: SODIUM CHLORIDE 0.9% FLUSH 10 ML FLUSH IV FLUSH SCH ×3 (09:00→21:00)
[2017-12-03] MEDS ORDERED: QUEtiapine FUMARATE 25 MG TAB PO SCH (09:00)
[2017-12-03] MEDS: TRIAMCINOLONE ACETONIDE 0.1% CREAM 15 GM TOPICAL SCH ×2 (09:01→21:00)
--- NOTE | 2017-12-03 10:45 | HHI.CCPN ---
Subjective Remarks/Hospital Course 62-year-old female with a past medical history significant for chronic pain with morphine pump, fibromyalgia, celiac disease and anxiety presented initially to the hospital for evaluation of leg spasms. The patient reports that she woke up approximately 1 AM and "could not control her legs." Her daughter gave her a 30 mg tablet of morphine to help with her symptoms yet they persisted. She was admitted to [facility] floor for further evaluation where she became suddenly lethargic and weak on the right side. The CT of the head was done immediately and shows large posterior parietal lobe hemorrhagic stroke with brain edema. She was immediately intubated for an airway protection and started on hyperosmolar therapy. 11/22: Patient underwent Left parietal craniotomy for intracerebral hematoma evacuation; Left frontal gt hole placement for ventriculostomy by Dr. Womack. Seen in the ICU immediately postop. Profoundly hypotensive systolic blood pressure initially in the 50s. Stat bolus of LR was ordered by anesthesia. Levophed increased to 12 mcg/min with improvement in systolic blood pressure to 110s. We will place arterial line. Currently patient is under the influence of anesthesia, not moving any extremities 11/23: T-max 101.1. Continues to be febrile. Placing NG tube and Julian catheter. Right upper extremity without movement. Withdraws right lower externally. Spontaneous movement to left upper and lower extremity. Starting on tube feeding. 11/24: Tmax 101.1. Currently. 2 bowel movement overnight. Urine with Escherichia coli/staph epi in blood. Potassium phosphorus been replaced. Hypertonic saline held due to sodium 160+. Very arousable off sedation with ICP is controlled. 11/25: Continues to spike intermittent fevers. Tolerating tube feeding at goal. With persistent fevers we will consult infectious disease. ICPs are well controlled. Sodium remains at 163. 11/26: no significant changes. hyperosmolar therapy continues. peak pressures elevated today into the 40s, but plateau pressure 19, suggestive of a flow restriction. given albuterol neb and changed to PRVC mode from VCV with improvement in peak pressures. 11/27: T-max 101.5. Currently 100.9. Planned ventriculostomy removal today. Will discuss with neurosurgery initiation of of pharmacological treatment for bilateral upper extremity deep venous thrombosis. Tolerating tube feeds goal will be 55 cc an hour 11/28: Tmax 101.4. Currently afebrile. Currently on enoxaparin 40 mg subcutaneous daily. Will advance to full dose anticoagulation once okay with neurosurgery. Tolerating tube feeds at goal. 11/29: Tmax 101.1. Currently 99.9. Resting in bed in no distress. Tolerating tube feeds. 11/30: Tmax 101.5. Currently afebrile. Central line has been exchanged to a left IJ CVL. Tolerating tube feeds at goal. PSV trial ongoing. 12/01: Tmax 99.7. Currently 98.2.. Central line exchanged yesterday. Will attempt PSV trial today. Atelectasis. Okayed for tracheostomy per neurosurgery. We'll coordinate PEG tube placement as well possibly this . Will discuss with daughter. 12/02: On midazolam drip at 3 mg an hour. Plan for tracheostomy this AM. Hemodynamically stable. Subjective 12/03: Tmax 99. Currently afebrile. Currently on midazolam drip at 6 an hour. Status post percutaneous tracheostomy with #8 Shiley cuffed 12/02. Plan for PEG tube but EGD 12/04. Very small bowel movement yesterday. Objective Vital Signs Date Time Temp Pulse Resp B/P (MAP) Pulse Ox O2 Delivery O2 Flow Rate FiO2 12/03/17 10:00 18 12/03/17 08:34 100 30 12/03/17 06:00 109 12/03/17 04:00 98.1 117/69 (85) Intake and Output 12/03/17 12/03/17 12/04/17 08:00 16:00 00:00 Intake Total 1447 ml Output Total 1250 ml Balance 197 ml Result Diagram: 12/03/17 0400 12/03/17 0400 Other Results Microbiology Date/Time Source Procedure Growth Status 11/25/17 17:50 Blood Line Aerobic Blood Culture - Final NO GROWTH IN 5 DAYS Complete 11/25/17 17:50 Blood Line Anaerobic Blood Culture - Final NO GROWTH IN 5 DAYS Complete 11/26/17 15:00 Cerebral Spinal Fluid Lumbar Puncture Fungal Smear - Final NO FUNGAL ELEMENTS SEEN. Resulted 11/26/17 15:00 Cerebral Spinal Fluid Lumbar Puncture Fungal Culture Pending Resulted 11/25/17 16:40 Urine Catheterized Urine Urine Culture - Final NO GROWTH IN 48 HOURS. Complete Imaging Last Impressions Chest X-Ray 12/02/17 0000 Signed Impressions: Service Date/Time: Saturday, December 02, 2017 12:10 - CONCLUSION: 1. Tracheostomy in good position. Stable left IJ catheter. 2. Otherwise, no significant interval change. 3. Persistent patchy bilateral lower lung zone airspace disease. 4. Persistent prominence of the right paratracheal region. David Bacon MD Abdomen X-Ray 12/02/17 0000 Signed Impressions: Service Date/Time: Saturday, December 02, 2017 13:24 - CONCLUSION: 1. Suction type nasogastric catheter tip is likely in the distal esophagus. David Bacon MD Head CT 11/26/17 0000 Signed Impressions: Service Date/Time: Monday, November 27, 2017 04:18 - CONCLUSION: Decreased pneumocephalus, stable intracranial intra-axial extra-axial hemorrhage and left parietal edema, with postsurgical changes and midline shift. Ariel Nath MD Upper Extremity Ultrasound 11/25/17 0000 Signed Impressions: Service Date/Time: Saturday, November 25, 2017 18:56 - CONCLUSION: Positive for deep venous thrombosis bilateral extremities, right worse than left. Anurag Carrion MD Lower Extremity Ultrasound 11/25/17 0000 Signed Impressions: Service Date/Time: Saturday, November 25, 2017 17:50 - CONCLUSION: Negative for deep venous thrombosis bilateral lower extremity. Anurag Carrion MD Abdomen/Pelvis CT 11/21/17 0000 Signed Impressions: Service Date/Time: Tuesday, November 21, 2017 21:37 - CONCLUSION: 1. No evidence to indicate pancreatitis. 2. Multiple stones in the gallbladder. 3. Multiple bilateral renal calculi.. 4. No significant changes compared to the prior exam. Meir Donnelly MD GI Procedure 11/20/17 0000 Signed Impressions: Service Date/Time: Monday, November 20, 2017 16:40 - CONCLUSION: ERCP as above. Jose Echevarria MD Objective Remarks GENERAL: 64-year-old female currently resting in bed on ventilator via tracheostomy SKIN: Warm and dry. HEAD: Circumferential craniotomy dressing in place and left frontal EVD in place EYES: No scleral icterus. No injection or drainage. Pupils bilaterally 4 mm sluggish ENT: Right NG tube. NECK: Supple, trachea midline. No JVD. Left IJ CVL is clean dry and intact as well. Tracheostomy site is clean dry and intact without bleeding CARDIOVASCULAR: Tachycardic, RR. Without murmurs, gallops, or rubs. RESPIRATORY: Breath sounds equal bilaterally. No accessory muscle use. no wheezing. good air entry. GASTROINTESTINAL: Abdomen soft, non-tender, nondistended. Subcutaneous morphine pump in the right upper quadrant without mottling MUSCULOSKELETAL: Bilateral upper extremity edema. NEURO EXAM: Patient is intubated, sedated. pupils equal, round, reactive. No withdrawal in any extremities no movement right upper extremity. Withdraws to pain right lower extremity. Spontaneous moving left upper and lower extremity. Nods head to simple answers appropriately. Vascular Central Line Catheter: Yes Assessment to: Continue Date of Insertion: Nov 30, 2017 Line: Central Venous Catheter Side: Left Location: Internal, Jugular A/P Assessment and Plan NEURO/PSYCH: Large acute intraparenchymal hemorrhage involving the left parietal lobe Midline shift to the right by 9 mm Bonilla tip barachnoid hemorrhage and cerebral edema on the left side Depression/anxiety Chronic pain on Morphine pump Chronic opioid use JAMUL History of C-spine fusion Status post left parietal craniotomy for intracerebral hematoma evacuation, Left frontal gt hole placement for ventriculostomy by Dr. Womack. Left ventric removed 11/27 - 3% sodium chloride infusion, target Na 150-155 currently on hold is currently 153 -Currently on levetiracetam 500 mg IV every 12 hours -Propofol switched to midazolam drip due to hypotension currently at 6 mg an hour Holding buspirone 30 mg twice daily and venlafaxine 50 mg twice daily for depression/anxiety. Resume when clinically indicated Holding acetaminophen/hydrocodone 325/7.51 tab every 6 hours as needed pain Holding scheduled morphine sulfate 30 mg every 12 hours Morphine liquid 10 mg every 6 hours scheduled with 1-2 mg every 3 hours as needed pain 1 through 10 Acetaminophen 650 mg every 6 hours as needed for fever Started quetiapine 50 mg twice a day in attempt to wean off midazolam drip however daughter states adverse reaction with headaches discontinued Resume venlafaxine 50 mill grams twice a day and trazodone 50 mg at night/home medication RESP: Acute respiratory failure Ongoing tobaccoism COPD - Intubated for an airway protection Status post percutaneous tracheostomy 12/02 #8 Malachi [facility] 14/550/1/5/40 PSV trials daily as tolerated Ventilator bundle Albuterol/ipratropium aerosols every 6 hours with albuterol aerosols every 2 hours as needed dyspnea Tobacco cessation booklet provided with appropriate CVS: Hypotension/shock Mild lactic acidosis History of hypertension -Currently off norepinephrine target map above 65 by calculation CPP 50-70. - 3% saline currently on hold with sodium currently 153 - Hold metoprolol and lisinopril while on vasopressors/borderline mean arterial pressure GI: Acute pancreatitis - resolved Opioid-induced constipation Cholelithiasis History of celiac disease 11/21/17 s/p ERCP with sphincterotomy and balloon extraction, finding choledocholithiasis. increase 0.8. tumor markers WNL. lipase WNL. WBC significant increase today, appears diaphoretic. tachycardic. GI signed off Resumed tube feedings with vital 1.5 goal 55 cc an hour per nutrition's recommendations with PEG tube plan Monday Lansoprazole 30 mg daily for GI prophylaxis. Continue docusate sodium 100 mg twice daily and senna 8.6 mg twice daily. Patient is on polyethylene glycol 17 g twice daily at home for constipation which is been continued along with lactulose 30 cc 4 times a day 1 dose Methylnaltrexone 12 mg subcutaneous 1. : Julian catheter for accurate I's and O's in a critically ill patient FEN/RENAL: Nephrolithiasis Hypernatremia Hyper-magnesium - Monitor renal function closely, maintain Julian Free water 300 cc every 8 hours ID: E. coli UTI Coag negative staph bacteremia hold ceftriaxone per infectious disease Pertinent cultures 11/26 -CSF -no growth 11/25 -blood cultures 2 -no growth 11/19 -UA -pansensitive E. coli 11/20 -blood cultures 2 -coag negative staph/staph epi pansensitive 11/22 -blood cultures 2 -no growth to date Appreciate infectious disease for further antibiotic coverage HEME: Leukocytosis Normocytic anemia Sickle cell trait? Right subclavian/axillary and brachial DVT. Left cephalic superficial thrombus/ brachial thrombus - Leukocytosis most likely stress related - Monitor CBC daily. Follow trend Upper extremity also revealed bilateral superficial and deep venous thrombus as above DVT GI prophylaxis - Teds SCDs - No pharmacological DVT prophylaxis due to acute ICH. Discuss with neurosurgery 11/27 start enoxaparin 40 mg subcu daily at least - Iansoprazole 30 mg by tube daily Access - Left IJ CVL day 3 placed 11/30 Level II follow-up Rafael Saldana MD Dec 03, 2017 10:45
--- NOTE | 2017-12-03 11:14 | RADRPT ---
EXAM DATE/TIME: 12/03/2017 10:38 [place] COMPARISON: No previous studies available for comparison. INDICATIONS : Constipation MEDICAL HISTORY : Cardiovascular disease. Chronic obstructive pulmonary disease,Gastroesophageal reflux disease.Celiac disease. Fibromyalgia SURGICAL HISTORY : Tubal ligation. Fusion, cervical. Cardiac cath. ENCOUNTER: Subsequent ACUITY: 2 weeks PAIN SCORE: Non-responsive. LOCATION: Abdomen FINDINGS: Gas is present in nondistended loops of small marked bowel. Amount of stool seen in the right colon gastric tube tip and side-port project within the antral region of the stomach. Metallic medical dev ice in the right lower quadrant. CONCLUSION: No significant small or large bowel loop dilation. Anurag Carrion MD on December 03, 2017 at 11:11 Board Certified Radiologist. This report was verified electronically.
[2017-12-03] MEDS: NYSTATIN SUSP 500,000 U/5 ML CUP SWISH-SWAL SCH ×3 (13:00→21:00)
[2017-12-03] MEDS: LACTULOSE SYRUP 20 GM/30 ML CUP NG SCH ×2 (13:00→18:38)
[2017-12-03] MEDS: VENLAFAXINE HCL 25 MG TAB PO SCH ×2 (16:37→16:43)
[2017-12-03] MEDS ORDERED: LEVOFLOXACIN 250 MG PREMIX INJ 50 ML IV ONE (21:00)
[2017-12-03] MEDS: traZODone HCL 50 MG TAB PO SCH (21:00)
[2017-12-03] MEDS: levETIRAcetam 500 MG/5 ML UDC NG SCH (21:00)
[2017-12-04] VITALS (20 sets, daily range): BP systolic 93–121; BP diastolic 54–64; PULSE 87–100; RESP 14–27; TEMP 98–99.1; O2SAT 96–100
[2017-12-04] MEDS: LACTULOSE SYRUP 20 GM/30 ML CUP NG SCH ×4 (00:18→18:21)
[2017-12-04] MEDS: MORPHINE SULFATE ORAL SOLN 10 MG/0.5 ML SYRINGE NG SCH ×6 (00:19→21:46)
[2017-12-04 00:48] LABS: INTERNATIONAL NORMALIZED RATIO 1.1 RATIO; PROTHROMBIN TIME - PATIENT 10.7 SEC (9.8-11.6)
[2017-12-04] MEDS: RESP: ALBUTEROL 2.5 MG/IPRATROPIUM 0.5 MG NEB (SCH) NEB ×4 (03:18→21:55)
[2017-12-04 03:57] LABS: AUTOMATED NEUTROPHIL # 10.9 TH/MM3 (1.8-7.7); BASOPHIL # 0.1 TH/MM3 (0-0.2); BASOPHIL % 0.9 % (0.0-2.0); EOSINOPHIL # 0.3 TH/MM3 (0-0.4); EOSINOPHIL % 2.1 % (0.0-4.0); HEMATOCRIT 21.5 % (35.0-46.0); HEMOGLOBIN 7.2 GM/DL (11.6-15.3); LYMPH % 17.7 % (9.0-44.0); LYMPHOCYTE # 2.7 TH/MM3 (1.0-4.8); MEAN CELL VOLUME 85.3 FL (80.0-100.0); MEAN CORPUSCULAR HEMOGLOBIN 28.5 PG (27.0-34.0); MEAN CORPUSCULAR HGB CONC 33.5 % (32.0-36.0); MEAN PLATELET VOLUME 9.1 FL (7.0-11.0); MONO % 6.8 % (0.0-8.0); NEUT % 72.5 % (16.0-70.0); PLATELET COUNT 317 TH/MM3 (150-450); RED BLOOD COUNT 2.52 MIL/MM3 (4.00-5.30); RED CELL DISTRIBUTION WIDTH 15.4 % (11.6-17.2); WHITE BLOOD COUNT 15.1 TH/MM3 (4.0-11.0)
--- NOTE | 2017-12-04 04:14 | HHI.CCPN ---
Subjective Remarks/Hospital Course 62-year-old female with a past medical history significant for chronic pain with morphine pump, fibromyalgia, celiac disease and anxiety presented initially to the hospital for evaluation of leg spasms. The patient reports that she woke up approximately 1 AM and "could not control her legs." Her daughter gave her a 30 mg tablet of morphine to help with her symptoms yet they persisted. She was admitted to [facility] floor for further evaluation where she became suddenly lethargic and weak on the right side. The CT of the head was done immediately and shows large posterior parietal lobe hemorrhagic stroke with brain edema. She was immediately intubated for an airway protection and started on hyperosmolar therapy. 11/22: Patient underwent Left parietal craniotomy for intracerebral hematoma evacuation; Left frontal gt hole placement for ventriculostomy by Dr. Womack. Seen in the ICU immediately postop. Profoundly hypotensive systolic blood pressure initially in the 50s. Stat bolus of LR was ordered by anesthesia. Levophed increased to 12 mcg/min with improvement in systolic blood pressure to 110s. We will place arterial line. Currently patient is under the influence of anesthesia, not moving any extremities 11/23: T-max 101.1. Continues to be febrile. Placing NG tube and Julian catheter. Right upper extremity without movement. Withdraws right lower externally. Spontaneous movement to left upper and lower extremity. Starting on tube feeding. 11/24: Tmax 101.1. Currently. 2 bowel movement overnight. Urine with Escherichia coli/staph epi in blood. Potassium phosphorus been replaced. Hypertonic saline held due to sodium 160+. Very arousable off sedation with ICP is controlled. 11/25: Continues to spike intermittent fevers. Tolerating tube feeding at goal. With persistent fevers we will consult infectious disease. ICPs are well controlled. Sodium remains at 163. 11/26: no significant changes. hyperosmolar therapy continues. peak pressures elevated today into the 40s, but plateau pressure 19, suggestive of a flow restriction. given albuterol neb and changed to PRVC mode from VCV with improvement in peak pressures. 11/27: T-max 101.5. Currently 100.9. Planned ventriculostomy removal today. Will discuss with neurosurgery initiation of of pharmacological treatment for bilateral upper extremity deep venous thrombosis. Tolerating tube feeds goal will be 55 cc an hour 11/28: Tmax 101.4. Currently afebrile. Currently on enoxaparin 40 mg subcutaneous daily. Will advance to full dose anticoagulation once okay with neurosurgery. Tolerating tube feeds at goal. 11/29: Tmax 101.1. Currently 99.9. Resting in bed in no distress. Tolerating tube feeds. 11/30: Tmax 101.5. Currently afebrile. Central line has been exchanged to a left IJ CVL. Tolerating tube feeds at goal. PSV trial ongoing. 12/01: Tmax 99.7. Currently 98.2.. Central line exchanged yesterday. Will attempt PSV trial today. Atelectasis. Okayed for tracheostomy per neurosurgery. We'll coordinate PEG tube placement as well possibly this . Will discuss with daughter. 12/02: On midazolam drip at 3 mg an hour. Plan for tracheostomy this AM. Hemodynamically stable. 12/03: Tmax 99. Currently afebrile. Currently on midazolam drip at 6 an hour. Status post percutaneous tracheostomy with #8 Shiley cuffed 12/02. Plan for PEG tube but EGD 12/04. Very small bowel movement yesterday. Subjective 12/04: Afebrile. Plan to OR today secondary to PEG tube placement." Anticoagulation on Hold. Midazolam increased to 7 mg an hour due to agitation. Stopped quetiapine yesterday due to daughter's request due to "headaches" in past Objective Vital Signs Date Time Temp Pulse Resp B/P (MAP) Pulse Ox O2 Delivery O2 Flow Rate FiO2 12/04/17 03:18 100 40 12/04/17 02:10 87 12/04/17 00:00 98.0 14 102/55 (71) Result Diagram: 12/04/17 0342 12/03/17 0400 Other Results Microbiology Date/Time Source Procedure Growth Status 11/25/17 17:50 Blood Line Aerobic Blood Culture - Final NO GROWTH IN 5 DAYS Complete 11/25/17 17:50 Blood Line Anaerobic Blood Culture - Final NO GROWTH IN 5 DAYS Complete 11/26/17 15:00 Cerebral Spinal Fluid Lumbar Puncture Fungal Smear - Final NO FUNGAL ELEMENTS SEEN. Resulted 11/26/17 15:00 Cerebral Spinal Fluid Lumbar Puncture Fungal Culture - Preliminary NO GROWTH IN 1 WEEK Resulted 11/25/17 16:40 Urine Catheterized Urine Urine Culture - Final NO GROWTH IN 48 HOURS. Complete Imaging Last Impressions Abdomen X-Ray 12/03/17 0000 Signed Impressions: Service Date/Time: Sunday, December 03, 2017 10:38 - CONCLUSION: No significant small or large bowel loop dilation. Anurag Carrion MD Chest X-Ray 12/02/17 0000 Signed Impressions: Service Date/Time: Saturday, December 02, 2017 12:10 - CONCLUSION: 1. Tracheostomy in good position. Stable left IJ catheter. 2. Otherwise, no significant interval change. 3. Persistent patchy bilateral lower lung zone airspace disease. 4. Persistent prominence of the right paratracheal region. David Bacon MD Head CT 11/26/17 0000 Signed Impressions: Service Date/Time: Monday, November 27, 2017 04:18 - CONCLUSION: Decreased pneumocephalus, stable intracranial intra-axial extra-axial hemorrhage and left parietal edema, with postsurgical changes and midline shift. Ariel Nath MD Upper Extremity Ultrasound 11/25/17 0000 Signed Impressions: Service Date/Time: Saturday, November 25, 2017 18:56 - CONCLUSION: Positive for deep venous thrombosis bilateral extremities, right worse than left. Anurag Carrion MD Lower Extremity Ultrasound 11/25/17 0000 Signed Impressions: Service Date/Time: Saturday, November 25, 2017 17:50 - CONCLUSION: Negative for deep venous thrombosis bilateral lower extremity. Anurag Carrion MD Abdomen/Pelvis CT 11/21/17 0000 Signed Impressions: Service Date/Time: Tuesday, November 21, 2017 21:37 - CONCLUSION: 1. No evidence to indicate pancreatitis. 2. Multiple stones in the gallbladder. 3. Multiple bilateral renal calculi.. 4. No significant changes compared to the prior exam. Meir Donnelly MD GI Procedure 11/20/17 0000 Signed Impressions: Service Date/Time: Monday, November 20, 2017 16:40 - CONCLUSION: ERCP as above. Jose Echevarria MD Objective Remarks GENERAL: 64-year-old female currently resting in bed on ventilator via tracheostomy SKIN: Warm and dry. HEAD: Circumferential craniotomy dressing in place and left frontal EVD in place EYES: No scleral icterus. No injection or drainage. Pupils bilaterally 4 mm sluggish ENT: Right NG tube. NECK: Supple, trachea midline. No JVD. Left IJ CVL is clean dry and intact as well. Tracheostomy site is clean dry and intact without bleeding CARDIOVASCULAR: Tachycardic, RR. Without murmurs, gallops, or rubs. RESPIRATORY: Breath sounds equal bilaterally. No accessory muscle use. no wheezing. good air entry. GASTROINTESTINAL: Abdomen soft, non-tender, nondistended. Subcutaneous morphine pump in the right upper quadrant without mottling MUSCULOSKELETAL: Bilateral upper extremity edema. NEURO EXAM: Patient is intubated, sedated. pupils equal, round, reactive. No withdrawal in any extremities no movement right upper extremity. Withdraws to pain right lower extremity. Spontaneous moving left upper and lower extremity. Nods head to simple answers appropriately. Vascular Central Line Catheter: Yes Assessment to: Continue Date of Insertion: Nov 30, 2017 Line: Central Venous Catheter Side: Left Location: Internal, Jugular A/P Assessment and Plan NEURO/PSYCH: Large acute intraparenchymal hemorrhage involving the left parietal lobe Midline shift to the right by 9 mm Bonilla tip barachnoid hemorrhage and cerebral edema on the left side Depression/anxiety Chronic pain on Morphine pump Chronic opioid use QAGAN TAYAGUNGIN History of C-spine fusion Status post left parietal craniotomy for intracerebral hematoma evacuation, Left frontal gt hole placement for ventriculostomy by Dr. Womack. Left ventric removed 11/27 - 3% sodium chloride infusion, target Na 150-155 currently on hold is currently 153 -Currently on levetiracetam 500 mg IV every 12 hours -Propofol switched to midazolam drip due to hypotension currently at 7 mg an hour Holding buspirone 30 mg twice daily and venlafaxine 50 mg twice daily for depression/anxiety. Resume when clinically indicated Holding acetaminophen/hydrocodone 325/7.51 tab every 6 hours as needed pain Holding scheduled morphine sulfate 30 mg every 12 hours Morphine liquid 10 mg every 6 hours scheduled with 1-2 mg every 3 hours as needed pain 1 through 10 Acetaminophen 650 mg every 6 hours as needed for fever Started quetiapine 50 mg twice a day in attempt to wean off midazolam drip however daughter states adverse reaction with headaches hence discontinued Resume venlafaxine 50 mill grams twice a day and trazodone 50 mg at night/home medication RESP: Acute respiratory failure Ongoing tobaccoism COPD - Intubated for an airway protection Status post percutaneous tracheostomy 12/02 #8 Malachi [facility] 14/550/10/20/40 PSV trials daily as tolerated Ventilator bundle Albuterol/ipratropium aerosols every 6 hours with albuterol aerosols every 2 hours as needed dyspnea Tobacco cessation booklet provided with appropriate CVS: Hypotension/shock Mild lactic acidosis History of hypertension -Currently off norepinephrine target map above 65 by calculation CPP 50-70. - 3% saline currently on hold with sodium currently 153 - Hold metoprolol and lisinopril while on vasopressors/borderline mean arterial pressure GI: Acute pancreatitis - resolved Opioid-induced constipation Cholelithiasis History of celiac disease 11/21/17 s/p ERCP with sphincterotomy and balloon extraction, finding choledocholithiasis. increase 0.8. tumor markers WNL. lipase WNL. WBC significant increase today, appears diaphoretic. tachycardic. GI signed off Resumed tube feedings with vital 1.5 goal 55 cc an hour per nutrition's recommendations with PEG tube plan Monday Lansoprazole 30 mg daily for GI prophylaxis. Continue docusate sodium 100 mg twice daily and senna 8.6 mg twice daily. Patient is on polyethylene glycol 17 g twice daily at home for constipation which is been continued along with lactulose 30 cc 4 times a day 1 dose Methylnaltrexone 12 mg subcutaneous 1. : Julian catheter for accurate I's and O's in a critically ill patient FEN/RENAL: Nephrolithiasis Hypernatremia Hyper-magnesium - Monitor renal function closely, maintain Julian Free water 300 cc every 8 hours ID: E. coli UTI Coag negative staph bacteremia hold ceftriaxone per infectious disease Pertinent cultures 11/26 -CSF -no growth 11/25 -blood cultures 2 -no growth 11/19 -UA -pansensitive E. coli 11/20 -blood cultures 2 -coag negative staph/staph epi pansensitive 11/22 -blood cultures 2 -no growth to date Appreciate infectious disease for further antibiotic coverage HEME: Leukocytosis Normocytic anemia Sickle cell trait? Right subclavian/axillary and brachial DVT. Left cephalic superficial thrombus/ brachial thrombus - Leukocytosis most likely stress related - Monitor CBC daily. Follow trend Upper extremity also revealed bilateral superficial and deep venous thrombus as above DVT GI prophylaxis - Teds SCDs - No pharmacological DVT prophylaxis due to acute ICH. Discuss with neurosurgery 11/27 start enoxaparin 40 mg subcu daily held today secondary to PEG tube placement. Continue post procedure. Okay to anticoagulate for upper extremity DVTs with full anticoagulation starting December 14, 2017. - Iansoprazole 30 mg by tube daily Access - Left IJ CVL day 5 placed 11/30 Level II follow-up Rafael Saldana MD Dec 04, 2017 04:14
[2017-12-04 04:32] LABS: AST (GOT) 32 U/L (15-37); BICARBONATE 25.9 MEQ/L (21.0-32.0); BLOOD UREA NITROGEN 32 MG/DL (7-18); CALCIUM 9.9 MG/DL (8.5-10.1); CHLORIDE 119 MEQ/L (98-107); CREATININE 1.01 MG/DL (0.50-1.00); GLOMERULAR FILTRATION RATE 55 ML/MIN (>89); GLUCOSE,RANDOM 102 MG/DL (74-106); MAGNESIUM 3.2 MG/DL (1.5-2.5); SODIUM (NA) 151 MEQ/L (136-145)
[2017-12-04 04:34] LABS: PHOSPHORUS 3.4 MG/DL (2.5-4.9)
[2017-12-04 04:35] LABS: ALKALINE PHOSPHATASE 98 U/L (45-117); ALT (GPT) 64 U/L (10-53); TOTAL BILIRUBIN ADULT 0.3 MG/DL (0.2-1.0); TOTAL PROTEIN 6.2 GM/DL (6.4-8.2)
[2017-12-04 05:42] LABS: BANDS 6 % (0-6); LYMPHOCYTES 18 % (9-44); MONOCYTES 4 % (0-8); MYELOCYTES 2 % (0-0); NEUTROPHIL # MANUAL DIFF 11.8 TH/MM3 (1.8-7.7); POLYS (SEG NEUTROPHILS) 70 % (16-70)
[2017-12-04] MEDS: FREE WATER G-TUBE SCH ×3 (05:42→21:43)
[2017-12-04] MEDS: ARTIFICIAL TEARS OPTH SOLN 15 ML BTL EACH EYE SCH ×3 (05:42→21:43)
[2017-12-04 05:47] LABS: ACANTHOCYTES OCC (NORMAL); KERATOCYTES OCC (NORMAL)
--- NOTE | 2017-12-04 05:56 | RADRPT ---
EXAM DATE/TIME: 12/04/2017 04:17 [facility] COMPARISON: CHEST SINGLE AP, December 02, 2017, 12:10. INDICATIONS : Short of breath. MEDICAL HISTORY : Cardiovascular disease. Chronic obstructive pulmonary disease. Gastroesophageal reflux disease.Celiac disease. Fibromyalgia. SURGICAL HISTORY : Tubal ligation. Fusion, cervical.Cardiac cath. ENCOUNTER: Subsequent ACUITY: 2 weeks PAIN SCORE: 0/10 LOCATION: Bilateral chest FINDINGS: A single AP semierect portable view of the chest was obtained. There is mild motion artifact. The tra cheostomy tube and left internal jugular central venous line remain in place. There has been an inter kaia placement of a nasogastric tube with the tip in the stomach. No confluent infiltrates or effusion s are identified. Mild patchy opacity remains at the lung bases. The heart size remains within normal limits. CONCLUSION: 1. Interval placement of nasogastric tube. 2. Motion artifact with mild patchy opacity at the lung bases. Julian Gutierrez MD on December 04, 2017 at 5:54 Board Certified Radiologist. This report was verified electronically.
[2017-12-04] MEDS: MIDAZOLAM 100 MG/100 ML INJ 100 ML IV PRN ×2 (08:05→08:15)
[2017-12-04] MEDS: TRIAMCINOLONE ACETONIDE 0.1% CREAM 15 GM TOPICAL SCH ×2 (09:00→21:43)
--- NOTE | 2017-12-04 09:25 | GIPROC ---
[facility] [address] [facility], [id number] EGD WITH PEG PROCEDURE REPORT EXAM DATE: 12/04/2017 PATIENT NAME: Steff Vasquez MR#: [id number] BIRTHDATE: 1955 ATTENDING: Danielle Espana MD ORDER #: [id number] [employer] SPECIALIST: Shashank Alford and Christina Woodson STATUS: inpatient INDICATIONS: The patient is a 62 yr old female here for an EGD with PEG due to dysphagia PROCEDURE PERFORMED: EGD with PEG placement MEDICATIONS: Per Anesthesia and None. TOPICAL ANESTHETIC: CONSENT: The patient understands the risks and benefits of the procedure and understands that these risks include, but are not limited to: sedation, allergic reaction, infection, perforation and/or bleeding. Alternative means of evaluation and treatment include, among others: physical exam, x-rays, and/or surgical intervention. The patient elects to proceed with this endoscopic procedure. medical equipment was checked for proper function. Hand hygiene and appropriate measures for infection prevention was taken. After the risks, benefits and alternatives of the procedure were thoroughly explained, Informed consent was verified, confirmed and timeout was successfully executed by the treatment team. The patient was anesthetized with topical anesthesia and the Pentax [id number] endoscope was introduced through the mouth and advanced to the second portion of the duodenum. The instrument was slowly withdrawn as the mucosa was fully examined. The upper, middle, and distal third of the esophagus were carefully inspected and no abnormalities were noted. The z-line was well seen at the GEJ. The endoscope was pushed into the fundus which was normal including a retroflexed view. The antrum, first and second part of the duodenum were unremarkable. The stomach was then inflated with air, and by a combination of transillumination and manual palpation, the site for the gastrostomy tube placement was selected and marked on the anterior abdominal wall. The skin of the anterior abdomen was surgically prepped and draped with sterile towels. Utilizing strict sterile technique, the selected site was then anesthetized with 1% xylocaine by injection into the skin and subcutaneous tissue. A 1 cm incision was made through the skin and subcutaneous tissue, and the needle/cannula assembly was then passed through the abdominal wall and through the anterior wall of the stomach, maintaining visualization with the endoscope. A snare device previously placed through the instrument channel was then opened and placed around the cannula, the needle was removed, and the insertion wire was passed through the cannula and into the stomach lumen. The snare was then loosened from the cannula, and repositioned to snare the insertion wire. The snare was then pulled up to the endoscope distal tip, and the scope was then withdrawn bringing with it the snare and insertion wire. The insertion wire was then released from the snare, and then loop-attached to the Ponsky 20 Fr gastrostomy tube. Using the "pull technique", the G-tube was then pulled into place by traction on the insertion wire at the abdominal wall end. The G-tube insertion site was then cleansed once again, and the external bolster was placed over the tube to secure it to the abdominal wall. A sterile dressing was then applied, and the procedure terminated. no abnormalities The gastroscope was then slowly withdrawn and removed. ADVERSE EVENT: There were no complications. IMPRESSIONS: 1. The upper, middle, and distal third of the esophagus were carefully inspected and no abnormalities were noted. The z-line was well seen at the GEJ. The endoscope was pushed into the fundus which was normal including a retroflexed view. The antrum, first and second part of the duodenum were unremarkable. 2. No abnormalities RECOMMENDATIONS: PEG recomendations: 1- NPO for 6 hours except for meds 2- Flush PEG tube every 6 hours with water and after each PEG feeding 3- May resume regular diet in the morning 4- May use Ensure or Boost etc. for PEG tube feeding REPEAT EXAM: procedure as needed Danielle Espana MD eSigned: Danielle Espana MD 12/04/2017 9:24 AM cc: PATIENT NAME: Steff Vasquez MR#: [id number]
[2017-12-04] MEDS ORDERED: VANCOMYCIN 500 MG VIAL IRRIGATION ONE (10:13)
[2017-12-04] MEDS: SODIUM CHLORIDE 0.9% FLUSH 10 ML FLUSH IV FLUSH SCH ×3 (10:25→21:00)
[2017-12-04] MEDS: levETIRAcetam 500 MG/5 ML UDC NG SCH ×2 (10:26→21:41)
[2017-12-04] MEDS: SENNOSIDES SYRUP 8.8 MG/5 ML CUP NG SCH ×2 (10:26→21:42)
[2017-12-04] MEDS: NYSTATIN SUSP 500,000 U/5 ML CUP SWISH-SWAL SCH ×4 (10:26→21:42)
[2017-12-04] MEDS: DOCUSATE SODIUM 100 MG/10 ML UDC PO SCH ×2 (10:26→21:42)
[2017-12-04] MEDS: LANSOPRAZOLE SOLUTAB 30 MG TAB NG SCH (10:27)
[2017-12-04] MEDS: POLYETHYLENE GLYCOL 17 GM PKG NG SCH ×2 (10:27→21:41)
[2017-12-04] MEDS ORDERED: PHENYLEPH/NS 1000 MCG/10 ML SYR IV ONE (12:00)
[2017-12-04] MEDS ORDERED: PROPOFOL 200 MG/20 ML AMP IV ONE (12:00)
--- NOTE | 2017-12-04 15:11 | HHI.NSPN ---
(Zack Ramirez) History Chief Complaint: ICH s/p left crani for evacuation. (Zack Ramirez) Interval History 62-year-old female admitted on 11/19/2017 after she presented to the emergency room with symptoms that seem to be related to morphine withdrawal with the shaking in her lower extremities along with the anxiety abdominal pain and nausea. She has an intrathecal pain pump placed to which the daughter states enters into the cervical and lumbar spine last year with a last pump refill with morphine 3 months ago. The pain specialist informed her that she could not refill the pump anymore since the [place] was not authorizing this. She has a past medical history significant for chronic neck and back pain with history of cervical and lumbar spine surgeries, COPD, fibromyalgia, celiac disease and anxiety. She was admitted to [facility] for further evaluation where she became suddenly lethargic, aphasic and weak on the right side yesterday after the endoscopy for biliary obstruction. The CT of the head was done and shows large posterior parietal lobe hemorrhagic stroke with brain edema. She was transferred to the intensive care unit and intubated for an airway protection and started on hyperosmolar therapy. Neurosurgery has been consulted this morning for the cerebral hemorrhage. 11/22/17: Pt underwent a Left parietal craniotomy for intracerebral hematoma evacuation; Left frontal gt hole placement for ventriculostomy early this morning. Post op assessment done by me reveals she is sedated on Diprivan. Pupils are 3mm bilaterally, reactive bilaterally. Ventriculostomy drain in place at 10cm H20 without drainage or waveform and ICPs read 12. There is air in the line. 11/23/17: Waveform improved yesterday after flushing and again this morning was dampened with air in the ventriculostomy line. This was flushed again using sterile technique with betadine swab at the CSF port and a waveform returned and ICPs are 7. Pt is sedated and intubated. She opens her eyes. Not following commands. 11/24/17: Pt sedated on Diprivan, held and pt starting to open eyes and becomes agitated. Not following commands. Ventriculostomy in place at 62psG88, ICP 7. 11/27/17: Pts sedation being weaned. Opens eyes slightly spontaneously. Not following commands. Right hemiparesis. 11/28/17: Pt sedation being weaned, on low dose Versed drip. Opens eyes. Gets agitated when stimulated. Right hemiparesis persists. Not following commands for me, pt is likely aphasic also given location of her hemorrhage. 11/29/17: Pt more awake today. She follows commands. Intubated. Pupils 3mm bilaterally. RUE with dense paresis, some movement in RLE more proximally than distally. 11/30/17: Pt sedated on low dose Versed drip. Not opening eyes or following commands secondary to sedation. Pupils 3mm bilaterally, reactive bilaterally. 12/04/17: Pt sedated on Versed. Opens eyes to stimulation. Follows some simple commands LEs. Not following with RUE. Not verbalizing. (Zack Ramirez) System Review Comments Not able to obtain given level of alertness. (Zack Ramirez) Exam Results Vital Signs Date Time Temp Pulse Resp B/P (MAP) Pulse Ox O2 Delivery O2 Flow Rate FiO2 12/04/17 14:00 91 12/04/17 12:00 98.6 22 110/58 (75) 100 12/04/17 12:00 40 Intake and Output 12/04/17 12/04/17 12/05/17 08:00 16:00 00:00 Intake Total 650 ml Output Total 600 ml Balance -600 ml 650 ml (Zack Ramirez) Physical Examination GENERAL: Trached and mechanically ventilated. No apparent distress. HEENT: PERRLA 3 mm brisk. Trach in place. RESP: CTA bilaterally. Trached. Volume control. Rate 14. Peep 5. FiO2 35%. HEART: NSR. No murmurs. ABD: Soft positive bs SKIN: Incision clean and dry. No signs of infection. Pt with skin breakdown forehead without signs of infection. MUSCULOSKELETAL: Moving left-sided extremities spontaneously. Right upper extremity dense paresis, some movement in RLE proximally more than distally. Appeared to move toes bilaterally to command. NEUROLOGICAL: Pt on Versed this morning. PERRLA 3 mm brisk. Following some simple commands. Moving left-sided extremities spontaneously. Right upper extremity dense paresis, some movement in RLE proximally more than distally. (Zack Ramirez) Lab, Micro, Other Results Last Impressions Chest X-Ray 12/04/17 0600 Signed Impressions: Service Date/Time: Monday, December 04, 2017 04:17 - CONCLUSION: 1. Interval placement of nasogastric tube. 2. Motion artifact with mild patchy opacity at the lung bases. Julian Gutierrez MD Abdomen X-Ray 12/03/17 0000 Signed Impressions: Service Date/Time: Sunday, December 03, 2017 10:38 - CONCLUSION: No significant small or large bowel loop dilation. Anurag Carrion MD Head CT 11/26/17 0000 Signed Impressions: Service Date/Time: Monday, November 27, 2017 04:18 - CONCLUSION: Decreased pneumocephalus, stable intracranial intra-axial extra-axial hemorrhage and left parietal edema, with postsurgical changes and midline shift. Ariel Nath MD Upper Extremity Ultrasound 11/25/17 0000 Signed Impressions: Service Date/Time: Saturday, November 25, 2017 18:56 - CONCLUSION: Positive for deep venous thrombosis bilateral extremities, right worse than left. Anurag Carrion MD Lower Extremity Ultrasound 11/25/17 0000 Signed Impressions: Service Date/Time: Saturday, November 25, 2017 17:50 - CONCLUSION: Negative for deep venous thrombosis bilateral lower extremity. Anurag Carrion MD Abdomen/Pelvis CT 11/21/17 0000 Signed Impressions: Service Date/Time: Tuesday, November 21, 2017 21:37 - CONCLUSION: 1. No evidence to indicate pancreatitis. 2. Multiple stones in the gallbladder. 3. Multiple bilateral renal calculi.. 4. No significant changes compared to the prior exam. Meir Donnelly MD GI Procedure 11/20/17 0000 Signed Impressions: Service Date/Time: Monday, November 20, 2017 16:40 - CONCLUSION: ERCP as above. Jose Echevarria MD Laboratory Tests Test 12/04/17 00:26 12/04/17 03:42 Prothrombin Time 10.7 SEC Prothromb Time International Ratio 1.1 RATIO White Blood Count 15.1 TH/MM3 Red Blood Count 2.52 MIL/MM3 Hemoglobin 7.2 GM/DL Hematocrit 21.5 % Mean Corpuscular Volume 85.3 FL Mean Corpuscular Hemoglobin 28.5 PG Mean Corpuscular Hemoglobin Concent 33.5 % Red Cell Distribution Width 15.4 % Platelet Count 317 TH/MM3 Mean Platelet Volume 9.1 FL Neutrophils (%) (Auto) 72.5 % Lymphocytes (%) (Auto) 17.7 % Monocytes (%) (Auto) 6.8 % Eosinophils (%) (Auto) 2.1 % Basophils (%) (Auto) 0.9 % Neutrophils # (Auto) 10.9 TH/MM3 Lymphocytes # (Auto) 2.7 TH/MM3 Monocytes # (Auto) 1.0 TH/MM3 Eosinophils # (Auto) 0.3 TH/MM3 Basophils # (Auto) 0.1 TH/MM3 CBC Comment AUTO DIFF Differential Total Cells Counted 100 Neutrophils % (Manual) 70 % Band Neutrophils % 6 % Lymphocytes % 18 % Monocytes % 4 % Neutrophils # (Manual) 11.8 TH/MM3 Myelocytes 2 % Differential Comment FINAL DIFF MANUAL Platelet Estimate NORMAL Platelet Morphology Comment NORMAL Acanthocytes OCC Keratocytes OCC Blood Urea Nitrogen 32 MG/DL Creatinine 1.01 MG/DL Random Glucose 102 MG/DL Total Protein 6.2 GM/DL Albumin 2.0 GM/DL Calcium Level 9.9 MG/DL Phosphorus Level 3.4 MG/DL Magnesium Level 3.2 MG/DL Alkaline Phosphatase 98 U/L Aspartate Amino Transf (AST/SGOT) 32 U/L Alanine Aminotransferase (ALT/SGPT) 64 U/L Total Bilirubin 0.3 MG/DL Sodium Level 151 MEQ/L Potassium Level 4.0 MEQ/L Chloride Level 119 MEQ/L Carbon Dioxide Level 25.9 MEQ/L Anion Gap 6 MEQ/L Estimat Glomerular Filtration Rate 55 ML/MIN 12/04/17 12/04/17 12/05/17 15:00 23:00 07:00 Intake Total 650 ml Balance 650 ml IV Total 100 ml Packed Cells 400 ml Blood Product IV Normal Saline Flush 50 ml Other 100 ml (Zack Ramirez) Medical Decision Making Impression and Plan A: Large left posterior temporal lobe prior low but occipital lobe hemorrhagic stroke with associated moderate mass effect and midline shift. Chronic neck and back pain with intrathecal pump placement which was not refilled due to lack of [place] [facility] reportedly. Likely is undergoing opiate withdrawal. Biliary obstruction with jaundice status post ERCP History of COPD Staph epidermidis bacteremia 2 with the urinary tract infection. Pt has since had negative BC. P: Continue with critical care weaning vent. Continue to monitor Neuro exam Continue with rehab efforts. (Zack Ramirez) Attending Statement The exam, history, and the medical decision-making described in the above note were completed with the assistance of the mid-level provider. I reviewed and agree with the findings presented. I attest that I had a [id number] encounter with the patient on the same day, and personally performed and documented my assessment and findings in the medical record. (Og Womack MD) Zack Ramirez Dec 04, 2017 15:11 Og Womack MD Dec 04, 2017 17:39
[2017-12-04] MEDS: VENLAFAXINE HCL 25 MG TAB PO SCH (16:00)
[2017-12-04] MEDS: traZODone HCL 50 MG TAB PO SCH (21:42)
[2017-12-05] VITALS (17 sets, daily range): BP systolic 124–146; BP diastolic 56–87; PULSE 80–113; RESP 14–28; TEMP 98.2–100.4; O2SAT 98–100
[2017-12-05] MEDS: MORPHINE SULFATE ORAL SOLN 10 MG/0.5 ML SYRINGE NG SCH ×6 (02:32→21:14)
[2017-12-05] MEDS: RESP: ALBUTEROL 2.5 MG/IPRATROPIUM 0.5 MG NEB (SCH) NEB ×2 (04:00→08:41)
[2017-12-05] MEDS: VENLAFAXINE HCL 25 MG TAB PO SCH ×2 (04:00→15:00)
[2017-12-05] MEDS: ARTIFICIAL TEARS OPTH SOLN 15 ML BTL EACH EYE SCH ×3 (05:22→21:15)
[2017-12-05] MEDS: FREE WATER G-TUBE SCH ×3 (05:22→21:15)
[2017-12-05 05:35] LABS: HEMATOCRIT 27.8 % (35.0-46.0); HEMOGLOBIN 9.4 GM/DL (11.6-15.3); MEAN CORPUSCULAR HGB CONC 33.8 % (32.0-36.0); MEAN PLATELET VOLUME 8.9 FL (7.0-11.0); PLATELET COUNT 444 TH/MM3 (150-450); RED BLOOD COUNT 3.23 MIL/MM3 (4.00-5.30); WHITE BLOOD COUNT 13.7 TH/MM3 (4.0-11.0)
--- NOTE | 2017-12-05 05:36 | RADRPT ---
EXAM DATE/TIME: 12/05/2017 04:28 [facility] COMPARISON: CHEST SINGLE AP, December 04, 2017, 4:17. INDICATIONS : Respiratory distress. MEDICAL HISTORY : Cardiovascular disease. Chronic obstructive pulmonary disease. Gastroesophageal reflux disease.Celiac disease. Fibromyalgia. SURGICAL HISTORY : Tubal ligation. Fusion, cervical.Cardiac cath. ENCOUNTER: Subsequent ACUITY: 2 weeks PAIN SCORE: Non-responsive. LOCATION: Bilateral chest FINDINGS: A single AP portable semierect view the chest was obtained and again demonstrates a tracheostomy tube in place. The previously noted nasogastric tube has been removed. The left internal jugular central venous line remains in place. The heart size is at the upper limits of normal. There is mild patchy o pacity now noted the left lung base. CONCLUSION: 1. Mild patchy opacity is now noted in the left lung base. This could represent early pneumonia. 2. Interval removal of nasogastric tube. Julian Gutierrez MD on December 05, 2017 at 5:34 Board Certified Radiologist. This report was verified electronically.
[2017-12-05] MEDS: LACTULOSE SYRUP 20 GM/30 ML CUP NG SCH ×4 (06:00→16:53)
[2017-12-05 06:02] LABS: BICARBONATE 24.4 MEQ/L (21.0-32.0); CALCIUM 9.8 MG/DL (8.5-10.1); CREATININE 1.03 MG/DL (0.50-1.00); MAGNESIUM 3.1 MG/DL (1.5-2.5); PHOSPHORUS 3.2 MG/DL (2.5-4.9)
[2017-12-05] MEDS: MIDAZOLAM 100 MG/100 ML INJ 100 ML IV PRN (06:46)
[2017-12-05] MEDS: SODIUM CHLORIDE 0.9% FLUSH 10 ML FLUSH IV FLUSH SCH ×3 (08:16→21:00)
[2017-12-05] MEDS: NYSTATIN SUSP 500,000 U/5 ML CUP SWISH-SWAL SCH ×4 (08:16→21:14)
[2017-12-05] MEDS: DOCUSATE SODIUM 100 MG/10 ML UDC PO SCH ×2 (08:16→21:14)
[2017-12-05] MEDS: levETIRAcetam 500 MG/5 ML UDC NG SCH ×2 (08:17→21:14)
[2017-12-05] MEDS: LANSOPRAZOLE SOLUTAB 30 MG TAB NG SCH (08:17)
[2017-12-05] MEDS: SENNOSIDES SYRUP 8.8 MG/5 ML CUP NG SCH ×2 (09:00→21:14)
[2017-12-05] MEDS: TRIAMCINOLONE ACETONIDE 0.1% CREAM 15 GM TOPICAL SCH ×2 (09:00→21:00)
[2017-12-05] MEDS: POLYETHYLENE GLYCOL 17 GM PKG NG SCH ×2 (09:00→21:14)
--- NOTE | 2017-12-05 09:36 | HHI.CCPN ---
Subjective Remarks/Hospital Course 62-year-old female with a past medical history significant for chronic pain with morphine pump, fibromyalgia, celiac disease and anxiety presented initially to the hospital for evaluation of leg spasms. The patient reports that she woke up approximately 1 AM and "could not control her legs." Her daughter gave her a 30 mg tablet of morphine to help with her symptoms yet they persisted. She was admitted to [facility] floor for further evaluation where she became suddenly lethargic and weak on the right side. The CT of the head was done immediately and shows large posterior parietal lobe hemorrhagic stroke with brain edema. She was immediately intubated for an airway protection and started on hyperosmolar therapy. 11/22: Patient underwent Left parietal craniotomy for intracerebral hematoma evacuation; Left frontal gt hole placement for ventriculostomy by Dr. Womack. Seen in the ICU immediately postop. Profoundly hypotensive systolic blood pressure initially in the 50s. Stat bolus of LR was ordered by anesthesia. Levophed increased to 12 mcg/min with improvement in systolic blood pressure to 110s. We will place arterial line. Currently patient is under the influence of anesthesia, not moving any extremities 11/23: T-max 101.1. Continues to be febrile. Placing NG tube and Julian catheter. Right upper extremity without movement. Withdraws right lower externally. Spontaneous movement to left upper and lower extremity. Starting on tube feeding. 11/24: Tmax 101.1. Currently. 2 bowel movement overnight. Urine with Escherichia coli/staph epi in blood. Potassium phosphorus been replaced. Hypertonic saline held due to sodium 160+. Very arousable off sedation with ICP is controlled. 11/25: Continues to spike intermittent fevers. Tolerating tube feeding at goal. With persistent fevers we will consult infectious disease. ICPs are well controlled. Sodium remains at 163. 11/26: no significant changes. hyperosmolar therapy continues. peak pressures elevated today into the 40s, but plateau pressure 19, suggestive of a flow restriction. given albuterol neb and changed to PRVC mode from VCV with improvement in peak pressures. 11/27: T-max 101.5. Currently 100.9. Planned ventriculostomy removal today. Will discuss with neurosurgery initiation of of pharmacological treatment for bilateral upper extremity deep venous thrombosis. Tolerating tube feeds goal will be 55 cc an hour 11/28: Tmax 101.4. Currently afebrile. Currently on enoxaparin 40 mg subcutaneous daily. Will advance to full dose anticoagulation once okay with neurosurgery. Tolerating tube feeds at goal. 11/29: Tmax 101.1. Currently 99.9. Resting in bed in no distress. Tolerating tube feeds. 11/30: Tmax 101.5. Currently afebrile. Central line has been exchanged to a left IJ CVL. Tolerating tube feeds at goal. PSV trial ongoing. 12/01: Tmax 99.7. Currently 98.2.. Central line exchanged yesterday. Will attempt PSV trial today. Atelectasis. Okayed for tracheostomy per neurosurgery. We'll coordinate PEG tube placement as well possibly this . Will discuss with daughter. 12/02: On midazolam drip at 3 mg an hour. Plan for tracheostomy this AM. Hemodynamically stable. 12/03: Tmax 99. Currently afebrile. Currently on midazolam drip at 6 an hour. Status post percutaneous tracheostomy with #8 Shiley cuffed 12/02. Plan for PEG tube but EGD 12/04. Very small bowel movement yesterday. Subjective 12/04: Afebrile. Plan to OR today secondary to PEG tube placement." Anticoagulation on Hold. Midazolam increased to 7 mg an hour due to agitation. Stopped quetiapine yesterday due to daughter's request due to "headaches" in past 12/05: Continue weaning efforts. Start TFs again once PEG cleared. Objective Vital Signs Date Time Temp Pulse Resp B/P (MAP) Pulse Ox O2 Delivery O2 Flow Rate FiO2 12/05/17 08:36 100 35 12/05/17 06:38 98.4 92 16 127/66 (86) Intake and Output 12/05/17 12/05/17 12/06/17 08:00 16:00 00:00 Intake Total 100 ml Output Total 1000 ml Balance -900 ml Result Diagram: 12/05/17 0452 12/05/17 0452 Imaging Last Impressions Abdomen X-Ray 12/03/17 0000 Signed Impressions: Service Date/Time: Sunday, December 03, 2017 10:38 - CONCLUSION: No significant small or large bowel loop dilation. Anurag Carrion MD Chest X-Ray 12/02/17 0000 Signed Impressions: Service Date/Time: Saturday, December 02, 2017 12:10 - CONCLUSION: 1. Tracheostomy in good position. Stable left IJ catheter. 2. Otherwise, no significant interval change. 3. Persistent patchy bilateral lower lung zone airspace disease. 4. Persistent prominence of the right paratracheal region. David Bacon MD Head CT 11/26/17 0000 Signed Impressions: Service Date/Time: Monday, November 27, 2017 04:18 - CONCLUSION: Decreased pneumocephalus, stable intracranial intra-axial extra-axial hemorrhage and left parietal edema, with postsurgical changes and midline shift. Ariel Nath MD Upper Extremity Ultrasound 11/25/17 0000 Signed Impressions: Service Date/Time: Saturday, November 25, 2017 18:56 - CONCLUSION: Positive for deep venous thrombosis bilateral extremities, right worse than left. Anurag Carrion MD Lower Extremity Ultrasound 11/25/17 0000 Signed Impressions: Service Date/Time: Saturday, November 25, 2017 17:50 - CONCLUSION: Negative for deep venous thrombosis bilateral lower extremity. Anurag Carrion MD Abdomen/Pelvis CT 11/21/17 0000 Signed Impressions: Service Date/Time: Tuesday, November 21, 2017 21:37 - CONCLUSION: 1. No evidence to indicate pancreatitis. 2. Multiple stones in the gallbladder. 3. Multiple bilateral renal calculi.. 4. No significant changes compared to the prior exam. Meir Donnelly MD GI Procedure 11/20/17 0000 Signed Impressions: Service Date/Time: Monday, November 20, 2017 16:40 - CONCLUSION: ERCP as above. Jose Echevarria MD Objective Remarks GENERAL: 64-year-old female currently resting in bed on ventilator via tracheostomy SKIN: Warm and dry. HEAD: Circumferential craniotomy dressing in place and left frontal EVD in place EYES: No scleral icterus. No injection or drainage. Pupils bilaterally 3 mm sluggish ENT: Right NG tube. NECK: Supple, trachea midline. No JVD. Left IJ CVL is clean dry and intact as well. Tracheostomy site is clean dry and intact without bleeding CARDIOVASCULAR: Tachycardic, RR. Without murmurs, gallops, or rubs. No JVD. RESPIRATORY: Breath sounds equal bilaterally. No accessory muscle use. No wheezing, good air entry. GASTROINTESTINAL: Abdomen soft, non-tender, nondistended. Subcutaneous morphine pump in the right upper quadrant. MUSCULOSKELETAL: Bilateral upper extremity edema extending to hands. Well perfused. NEURO EXAM: Patient is intubated, sedated. pupils equal, round, reactive. No movement right upper extremity. Withdraws to pain right lower extremity. Spontaneous moving left upper and lower extremity. Nods head to simple questions appropriately. Date of Insertion: Nov 30, 2017 Line: Central Venous Catheter Side: Left Location: Internal, Jugular A/P Assessment and Plan NEURO/PSYCH: Large acute intraparenchymal hemorrhage involving the left parietal lobe Midline shift to the right by 9 mm Subarachnoid hemorrhage and cerebral edema on the left side Depression/anxiety Chronic pain on Morphine pump Chronic opioid use [place] History of C-spine fusion Status post left parietal craniotomy for intracerebral hematoma evacuation, Left frontal gt hole placement for ventriculostomy by Dr. Womack. Left ventric removed 11/27 - 3% sodium chloride infusion, target Na 150-155 currently on hold is currently 153 -Currently on levetiracetam 500 mg IV every 12 hours -Propofol switched to midazolam drip due to hypotension currently at 7 mg an hour Holding buspirone 30 mg twice daily and venlafaxine 50 mg twice daily for depression/anxiety. Resume when clinically indicated Holding acetaminophen/hydrocodone 325/7.51 tab every 6 hours as needed pain Holding scheduled morphine sulfate 30 mg every 12 hours Morphine liquid 10 mg every 6 hours scheduled with 1-2 mg every 3 hours as needed pain 1 through 10 Acetaminophen 650 mg every 6 hours as needed for fever Started quetiapine 50 mg twice a day in attempt to wean off midazolam drip however daughter states adverse reaction with headaches hence discontinued Resume venlafaxine 50 mill grams twice a day and trazodone 50 mg at night/home medication RESP: Acute respiratory failure Ongoing tobaccoism COPD - Intubated for an airway protection Status post percutaneous tracheostomy 12/02 #8 Malachi [facility] 14/550/10/20/40 PSV trials daily as tolerated Ventilator bundle Albuterol/ipratropium aerosols every 6 hours with albuterol aerosols every 2 hours as needed dyspnea Tobacco cessation booklet provided when appropriate CVS: Hypotension/shock Mild lactic acidosis History of hypertension -Currently off norepinephrine target map above 65 by calculation CPP 50-70. - 3% saline currently on hold with sodium currently 153 - Hold metoprolol and lisinopril while on vasopressors/borderline mean arterial pressure GI: Acute pancreatitis - resolved Opioid-induced constipation Cholelithiasis History of celiac disease 11/21/17 s/p ERCP with sphincterotomy and balloon extraction, finding choledocholithiasis. increase 0.8. tumor markers WNL. lipase WNL. WBC significant increase today, appears diaphoretic. tachycardic. GI signed off Resumed tube feedings with vital 1.5 goal 55 cc an hour per nutrition's recommendations with PEG tube plan Monday Lansoprazole 30 mg daily for GI prophylaxis. Continue docusate sodium 100 mg twice daily and senna 8.6 mg twice daily. Patient is on polyethylene glycol 17 g twice daily at home for constipation which is been continued along with lactulose 30 cc 4 times a day 1 dose Methylnaltrexone 12 mg subcutaneous 1. : Julian catheter for accurate I's and O's in a critically ill patient FEN/RENAL: Nephrolithiasis Hypernatremia Hyper-magnesium - Monitor renal function closely, maintain Julian Free water 300 cc every 8 hours ID: E. coli UTI Coag negative staph bacteremia hold ceftriaxone per infectious disease Pertinent cultures 11/26 -CSF -no growth 11/25 -blood cultures 2 -no growth 11/19 -UA -pansensitive E. coli 11/20 -blood cultures 2 -coag negative staph/staph epi pansensitive 11/22 -blood cultures 2 -no growth to date Appreciate infectious disease for further antibiotic coverage HEME: Leukocytosis Normocytic anemia Sickle cell trait? Right subclavian/axillary and brachial DVT. Left cephalic superficial thrombus/ brachial thrombus - Leukocytosis most likely stress related - Monitor CBC daily. Follow trend Upper extremity also revealed bilateral superficial and deep venous thrombus as above DVT GI prophylaxis - Teds SCDs - No pharmacological DVT prophylaxis due to acute ICH. Discuss with neurosurgery 11/27 start enoxaparin 40 mg subcu daily held today secondary to PEG tube placement. Continue post procedure. Okay to anticoagulate for upper extremity DVTs with full anticoagulation starting December 14, 2017. - Iansoprazole 30 mg by tube daily Access - Left IJ CVL day 6 placed 11/30 Overall impression: Slow progress. Unable to wean from ventilator. Reyes Shelton MD Dec 05, 2017 09:36
--- NOTE | 2017-12-05 09:44 | HHI.NSPN ---
History Chief Complaint: ICH s/p left crani for evacuation. Interval History 62-year-old female admitted on 11/19/2017 after she presented to the emergency room with symptoms that seem to be related to morphine withdrawal with the shaking in her lower extremities along with the anxiety abdominal pain and nausea. She has an intrathecal pain pump placed to which the daughter states enters into the cervical and lumbar spine last year with a last pump refill with morphine 3 months ago. The pain specialist informed her that she could not refill the pump anymore since the [place] was not authorizing this. She has a past medical history significant for chronic neck and back pain with history of cervical and lumbar spine surgeries, COPD, fibromyalgia, celiac disease and anxiety. She was admitted to [facility] for further evaluation where she became suddenly lethargic, aphasic and weak on the right side yesterday after the endoscopy for biliary obstruction. The CT of the head was done and shows large posterior parietal lobe hemorrhagic stroke with brain edema. She was transferred to the intensive care unit and intubated for an airway protection and started on hyperosmolar therapy. Neurosurgery has been consulted this morning for the cerebral hemorrhage. 11/22/17: Pt underwent a Left parietal craniotomy for intracerebral hematoma evacuation; Left frontal gt hole placement for ventriculostomy early this morning. Post op assessment done by me reveals she is sedated on Diprivan. Pupils are 3mm bilaterally, reactive bilaterally. Ventriculostomy drain in place at 10cm H20 without drainage or waveform and ICPs read 12. There is air in the line. 11/23/17: Waveform improved yesterday after flushing and again this morning was dampened with air in the ventriculostomy line. This was flushed again using sterile technique with betadine swab at the CSF port and a waveform returned and ICPs are 7. Pt is sedated and intubated. She opens her eyes. Not following commands. 11/24/17: Pt sedated on Diprivan, held and pt starting to open eyes and becomes agitated. Not following commands. Ventriculostomy in place at [id number], ICP 7. 11/27/17: Pts sedation being weaned. Opens eyes slightly spontaneously. Not following commands. Right hemiparesis. 11/28/17: Pt sedation being weaned, on low dose Versed drip. Opens eyes. Gets agitated when stimulated. Right hemiparesis persists. Not following commands for me, pt is likely aphasic also given location of her hemorrhage. 11/29/17: Pt more awake today. She follows commands. Intubated. Pupils 3mm bilaterally. RUE with dense paresis, some movement in RLE more proximally than distally. 11/30/17: Pt sedated on low dose Versed drip. Not opening eyes or following commands secondary to sedation. Pupils 3mm bilaterally, reactive bilaterally. 12/04/17: Pt sedated on Versed. Opens eyes to stimulation. Follows some simple commands LEs. Not following with RUE. Not verbalizing. 12/05/17: Pt opens eyes to voice. Follows some commands on left side. Right dense hemiparesis. not verbalizing. System Review Comments Not able to obtain given clinical condition. Exam Results Vital Signs Date Time Temp Pulse Resp B/P (MAP) Pulse Ox O2 Delivery O2 Flow Rate FiO2 12/05/17 08:36 100 35 12/05/17 06:38 98.4 92 16 127/66 (86) Intake and Output 12/05/17 12/05/17 12/06/17 08:00 16:00 00:00 Intake Total 100 ml Output Total 1000 ml Balance -900 ml Physical Examination GENERAL: Trached and mechanically ventilated. No apparent distress. HEENT: PERRLA 3 mm brisk. Trach in place. RESP: CTA bilaterally. Trached. HEART: NSR. No murmurs. ABD: Soft positive bs SKIN: Incision clean and dry. No signs of infection. Pt with skin breakdown forehead without signs of infection. MUSCULOSKELETAL: Moving left-sided extremities spontaneously. Right upper extremity dense paresis, some spontaneous movement in RLE proximally more than distally. NEUROLOGICAL: Pt opens her eyes to voice. PERRLA 3 mm brisk. Following some simple commands. Moving left-side spontaneously and to command. Right upper extremity dense paresis, some movement in RLE proximally more than distally. Lab, Micro, Other Results Last Impressions Chest X-Ray 12/05/17 0600 Signed Impressions: Service Date/Time: Tuesday, December 05, 2017 04:28 - CONCLUSION: 1. Mild patchy opacity is now noted in the left lung base. This could represent early pneumonia. 2. Interval removal of nasogastric tube. Julian Gutierrez MD Abdomen X-Ray 12/03/17 0000 Signed Impressions: Service Date/Time: Sunday, December 03, 2017 10:38 - CONCLUSION: No significant small or large bowel loop dilation. Anurag Carrion MD Head CT 11/26/17 0000 Signed Impressions: Service Date/Time: Monday, November 27, 2017 04:18 - CONCLUSION: Decreased pneumocephalus, stable intracranial intra-axial extra-axial hemorrhage and left parietal edema, with postsurgical changes and midline shift. Ariel Nath MD Upper Extremity Ultrasound 11/25/17 0000 Signed Impressions: Service Date/Time: Saturday, November 25, 2017 18:56 - CONCLUSION: Positive for deep venous thrombosis bilateral extremities, right worse than left. Anurag Carrion MD Lower Extremity Ultrasound 11/25/17 0000 Signed Impressions: Service Date/Time: Saturday, November 25, 2017 17:50 - CONCLUSION: Negative for deep venous thrombosis bilateral lower extremity. Anurag Carrion MD Abdomen/Pelvis CT 11/21/17 0000 Signed Impressions: Service Date/Time: Tuesday, November 21, 2017 21:37 - CONCLUSION: 1. No evidence to indicate pancreatitis. 2. Multiple stones in the gallbladder. 3. Multiple bilateral renal calculi.. 4. No significant changes compared to the prior exam. Meir Donnelly MD GI Procedure 11/20/17 0000 Signed Impressions: Service Date/Time: Monday, November 20, 2017 16:40 - CONCLUSION: ERCP as above. Jose Echevarria MD Laboratory Tests Test 12/05/17 04:52 White Blood Count 13.7 TH/MM3 Red Blood Count 3.23 MIL/MM3 Hemoglobin 9.4 GM/DL Hematocrit 27.8 % Mean Corpuscular Volume 86.0 FL Mean Corpuscular Hemoglobin 29.0 PG Mean Corpuscular Hemoglobin Concent 33.8 % Red Cell Distribution Width 15.0 % Platelet Count 444 TH/MM3 Mean Platelet Volume 8.9 FL Blood Urea Nitrogen 30 MG/DL Creatinine 1.03 MG/DL Random Glucose 102 MG/DL Calcium Level 9.8 MG/DL Phosphorus Level 3.2 MG/DL Magnesium Level 3.1 MG/DL Sodium Level 152 MEQ/L Potassium Level 3.4 MEQ/L Chloride Level 119 MEQ/L Carbon Dioxide Level 24.4 MEQ/L Anion Gap 9 MEQ/L Estimat Glomerular Filtration Rate 54 ML/MIN Medical Decision Making Impression and Plan A: Large left posterior temporal lobe prior low but occipital lobe hemorrhagic stroke with associated moderate mass effect and midline shift. Chronic neck and back pain with intrathecal pump placement which was not refilled due to [facility] of [facility]. Likely is undergoing opiate withdrawal. Biliary obstruction with jaundice status post ERCP History of COPD Staph epidermidis bacteremia 2 with the urinary tract infection. Pt has since had negative BC. P: Continue with critical care weaning vent. Continue to monitor Neuro exam Continue with rehab efforts. Zack Ramirez Dec 05, 2017 9:44 am
--- NOTE | 2017-12-05 10:41 | HHI.GIFU ---
Subjective Remarks Pt resting in bed, on vent. s/p PEG tube placement yesterday. Per RN tube is flushing "beautifully." (Columba Malhotra [employer]) Objective Vitals I&O Vital Signs Date Time Temp Pulse Resp B/P (MAP) Pulse Ox O2 Delivery O2 Flow Rate FiO2 12/05/17 10:00 100 12/05/17 08:36 100 35 12/05/17 08:00 35 12/05/17 08:00 98.6 95 19 140/87 (104) 100 12/05/17 08:00 95 12/05/17 06:38 98.4 92 16 127/66 (86) 100 12/05/17 06:38 40 12/05/17 06:37 94 12/05/17 03:37 100 35 12/05/17 02:58 40 12/05/17 02:58 98.2 94 14 124/58 (80) 98 12/05/17 02:56 80 12/05/17 00:24 100 35 12/04/17 20:00 40 12/04/17 20:00 93 12/04/17 20:00 98.7 96 14 93/64 (74) 96 12/04/17 19:52 100 35 18 18:00 88 18 16:51 100 35 18 16:00 40 12/04/17 16:00 98.8 90 14 121/57 (78) 99 12/04/17 16:00 90 12/04/17 14:00 91 12/04/17 12:00 100 12/04/17 12:00 98.6 100 22 110/58 (75) 100 18 12:00 40 18 11:48 100 35 18 11:47 35 I/O 18 12/04/18 12/04/18 18 /12/05/17 07:00 15:00 23:00 07:00 15:00 23:00 Intake Total 601 ml 650 ml 590 ml 100 ml Output Total 600 ml 950 ml 1000 ml Balance 1 ml 650 ml -360 ml -900 ml IV Total 50 ml 100 ml 90 ml Tube Feeding 251 ml Packed Cells 400 ml Blood Product IV Normal Saline Flush 50 ml Other 300 ml 100 ml 500 ml 100 ml Output Urine Total 600 ml 950 ml 1000 ml # Bowel Movements 1 1 Laboratory Laboratory Tests Test 12/05/17 04:52 White Blood Count 13.7 Red Blood Count 3.23 Hemoglobin 9.4 Hematocrit 27.8 Mean Corpuscular Volume 86.0 Mean Corpuscular Hemoglobin 29.0 Mean Corpuscular Hemoglobin Concent 33.8 Red Cell Distribution Width 15.0 Platelet Count 444 Mean Platelet Volume 8.9 Blood Urea Nitrogen 30 Creatinine 1.03 Random Glucose 102 Calcium Level 9.8 Phosphorus Level 3.2 Magnesium Level 3.1 Sodium Level 152 Potassium Level 3.4 Chloride Level 119 Carbon Dioxide Level 24.4 Anion Gap 9 Estimat Glomerular Filtration Rate 54 Date/Time Source Procedure Growth Status 11/25/17 17:50 Blood Line Aerobic Blood Culture - Final NO GROWTH IN 5 DAYS Complete 11/25/17 17:50 Blood Line Anaerobic Blood Culture - Final NO GROWTH IN 5 DAYS Complete 11/26/17 15:00 Cerebral Spinal Fluid Lumbar Puncture Fungal Smear - Final NO FUNGAL ELEMENTS SEEN. Resulted 11/26/17 15:00 Cerebral Spinal Fluid Lumbar Puncture Fungal Culture - Preliminary NO GROWTH IN 1 WEEK Resulted 12/04/17 05:30 Sputum Endotracheal Gram Stain - Final Resulted 12/04/17 05:30 Sputum Endotracheal Sputum Culture Pending Resulted 11/25/17 16:40 Urine Catheterized Urine Urine Culture - Final NO GROWTH IN 48 HOURS. Complete Imaging Last Impressions Chest X-Ray 12/05/17 0600 Signed Impressions: Service Date/Time: Tuesday, December 05, 2017 04:28 - CONCLUSION: 1. Mild patchy opacity is now noted in the left lung base. This could represent early pneumonia. 2. Interval removal of nasogastric tube. Julian Gutierrez MD Abdomen X-Ray 12/03/17 0000 Signed Impressions: Service Date/Time: Sunday, December 03, 2017 10:38 - CONCLUSION: No significant small or large bowel loop dilation. Anurag Carrion MD Head CT 11/26/17 0000 Signed Impressions: Service Date/Time: Monday, November 27, 2017 04:18 - CONCLUSION: Decreased pneumocephalus, stable intracranial intra-axial extra-axial hemorrhage and left parietal edema, with postsurgical changes and midline shift. Ariel Nath MD Upper Extremity Ultrasound 11/25/17 0000 Signed Impressions: Service Date/Time: Saturday, November 25, 2017 18:56 - CONCLUSION: Positive for deep venous thrombosis bilateral extremities, right worse than left. Anurag Carrion MD Lower Extremity Ultrasound 11/25/17 0000 Signed Impressions: Service Date/Time: Saturday, November 25, 2017 17:50 - CONCLUSION: Negative for deep venous thrombosis bilateral lower extremity. Anurag Carrion MD Abdomen/Pelvis CT 11/21/17 0000 Signed Impressions: Service Date/Time: Tuesday, November 21, 2017 21:37 - CONCLUSION: 1. No evidence to indicate pancreatitis. 2. Multiple stones in the gallbladder. 3. Multiple bilateral renal calculi.. 4. No significant changes compared to the prior exam. Meir Donnelly MD GI Procedure 11/20/17 0000 Signed Impressions: Service Date/Time: Monday, November 20, 2017 16:40 - CONCLUSION: ERCP as above. Jose Echevarria MD Physical Exam HEENT: normocephalic; atraumatic; trach CHEST: coarse CARDIAC: RRR ABDOMEN: Soft, round, no hepatosplenomegaly; bowel sounds soft PEG site dressing dry and intact EXTREMITIES: No clubbing, cyanosis, or edema. restraints SKIN: Normal; no rash; BUTT PRESSER: sedated on vent (Columba Malhotra [employer]) Assessment and Plan Plan - Acute pancreatitis- likely biliary etiology. CT of the abdomen/pelvis done and that was significant for cholelithiasis and mild prominence of the biliary tree with questionable filling defect in the distal common bile duct, suspicious for stone versus mass. Labs with normal LfTs, high Lipase 2544. Patient reports subjective fever and chills. CBC unremarkable. Patient denies abd pain, change in bowels, change in urine, hematemesis or hematochezia. Denies previous hx of pancreatitis or liver disease, denies alcohol or illicit drug use. Reports nausea and one episode of vomiting the day before yesterday. - Hx of celiac dz- last EGD 5 yrs ago per pt, has been following gluten free diet, she consumes gluten every now and then but minimal - UTI- urine cx pending - involuntary leg spasms that wasn't relived with morphine. per attending - past medical history significant for chronic pain with morphine pump, fibromyalgia, per attending 11/21/17 s/p ERCP with sphincterotomy and balloon extraction, finding choledocholithiasis. AST worsened today, mild increase 0.8. tumor markers WNL. lipase WNL. WBC significant increase today, appears diaphoretic. tachycardic. 11/22/17 s/p crani for hemorrhage. in ISC now intubated. LFTs improving. CT abd unremarkable. 12/01/17 s/p hemorrhagic stroke. GI reconsulted for PEG tube placement. d/w family Yvette Vasquez [phone] and she is agreeable to proceed. 12/02/17 on vent. s/p bronch & trach. just had NGT placed, KUB pending. HH stable 12/05/17 s/p trach, s/p EGD and peg tube placement, EGD was unremarkable. peg tube flushing well. Plan: - restart TF - supportive care pt seen by myself and Dr Espana and this note is written on her behalf (Columba Malhotra) Physician Comments Seen and examined with [employer]< s/p peg. Increase TF as needed. Flush peg with atleast 150 cc of water Q shift. GI will sign off. Thank you (Danielle Espana MD) Columba Malhotra Dec 05, 2017 10:41 Danielle Espnaa MD Dec 05, 2017 14:50
[2017-12-05] MEDS: ACETAMINOPHEN 650 MG/20.3 ML UDC NG PRN (12:54)
[2017-12-05] MEDS: traZODone HCL 50 MG TAB PO SCH (21:14)
[2017-12-06] VITALS (19 sets, daily range): BP systolic 114–153; BP diastolic 7–79; PULSE 96–113; RESP 21–27; TEMP 99.1–100; O2SAT 100
[2017-12-06] MEDS: LACTULOSE SYRUP 20 GM/30 ML CUP NG SCH ×5 (00:54→22:41)
[2017-12-06] MEDS: MORPHINE SULFATE ORAL SOLN 10 MG/0.5 ML SYRINGE NG SCH ×6 (00:55→20:22)
[2017-12-06] MEDS: VENLAFAXINE HCL 25 MG TAB PO SCH ×2 (04:00→16:23)
[2017-12-06] MEDS: ARTIFICIAL TEARS OPTH SOLN 15 ML BTL EACH EYE SCH ×2 (04:08→20:23)
[2017-12-06] MEDS: FREE WATER G-TUBE SCH ×3 (06:00→22:00)
[2017-12-06] MEDS: SODIUM CHLORIDE 0.9% FLUSH 10 ML FLUSH IV FLUSH SCH ×3 (08:54→20:22)
[2017-12-06] MEDS: POLYETHYLENE GLYCOL 17 GM PKG NG SCH ×2 (08:55→19:46)
[2017-12-06] MEDS: SENNOSIDES SYRUP 8.8 MG/5 ML CUP NG SCH ×2 (08:55→19:46)
[2017-12-06] MEDS: NYSTATIN SUSP 500,000 U/5 ML CUP SWISH-SWAL SCH ×4 (08:55→20:24)
[2017-12-06] MEDS: levETIRAcetam 500 MG/5 ML UDC NG SCH ×2 (08:55→20:22)
[2017-12-06] MEDS: LANSOPRAZOLE SOLUTAB 30 MG TAB NG SCH (08:55)
[2017-12-06] MEDS: TRIAMCINOLONE ACETONIDE 0.1% CREAM 15 GM TOPICAL SCH ×2 (08:55→20:23)
[2017-12-06] MEDS: DOCUSATE SODIUM 100 MG/10 ML UDC PO SCH ×2 (08:55→19:46)
--- NOTE | 2017-12-06 09:45 | HHI.NSPN ---
(Zack Ramirez) History Chief Complaint: ICH s/p left crani for evacuation. (Zack Ramirez) Interval History 62-year-old female admitted on 11/19/2017 after she presented to the emergency room with symptoms that seem to be related to morphine withdrawal with the shaking in her lower extremities along with the anxiety abdominal pain and nausea. She has an intrathecal pain pump placed to which the daughter states enters into the cervical and lumbar spine last year with a last pump refill with morphine 3 months ago. The pain specialist informed her that she could not refill the pump anymore since the [place] was not authorizing this. She has a past medical history significant for chronic neck and back pain with history of cervical and lumbar spine surgeries, COPD, fibromyalgia, celiac disease and anxiety. She was admitted to [facility] for further evaluation where she became suddenly lethargic, aphasic and weak on the right side yesterday after the endoscopy for biliary obstruction. The CT of the head was done and shows large posterior parietal lobe hemorrhagic stroke with brain edema. She was transferred to the intensive care unit and intubated for an airway protection and started on hyperosmolar therapy. Neurosurgery has been consulted this morning for the cerebral hemorrhage. 11/22/17: Pt underwent a Left parietal craniotomy for intracerebral hematoma evacuation; Left frontal gt hole placement for ventriculostomy early this morning. Post op assessment done by me reveals she is sedated on Diprivan. Pupils are 3mm bilaterally, reactive bilaterally. Ventriculostomy drain in place at 10cm H20 without drainage or waveform and ICPs read 12. There is air in the line. 11/23/17: Waveform improved yesterday after flushing and again this morning was dampened with air in the ventriculostomy line. This was flushed again using sterile technique with betadine swab at the CSF port and a waveform returned and ICPs are 7. Pt is sedated and intubated. She opens her eyes. Not following commands. 11/24/17: Pt sedated on Diprivan, held and pt starting to open eyes and becomes agitated. Not following commands. Ventriculostomy in place at [id number], ICP 7. 11/27/17: Pts sedation being weaned. Opens eyes slightly spontaneously. Not following commands. Right hemiparesis. 11/28/17: Pt sedation being weaned, on low dose Versed drip. Opens eyes. Gets agitated when stimulated. Right hemiparesis persists. Not following commands for me, pt is likely aphasic also given location of her hemorrhage. 11/29/17: Pt more awake today. She follows commands. Intubated. Pupils 3mm bilaterally. RUE with dense paresis, some movement in RLE more proximally than distally. 11/30/17: Pt sedated on low dose Versed drip. Not opening eyes or following commands secondary to sedation. Pupils 3mm bilaterally, reactive bilaterally. 12/04/17: Pt sedated on Versed. Opens eyes to stimulation. Follows some simple commands LEs. Not following with RUE. Not verbalizing. 12/05/17: Pt opens eyes to voice. Follows some commands on left side. Right dense hemiparesis. not verbalizing. 12/06/17: Pt sedated on Versed 10 but opens eyes slightly and follows commands- sticks out tongue, fruit tester left hand and moves toes. (Zack Ramirez) System Review Comments Not able to obtain given level of alertness. (Zack Ramirez) Exam Results Vital Signs Date Time Temp Pulse Resp B/P (MAP) Pulse Ox O2 Delivery O2 Flow Rate FiO2 12/06/17 08:30 100 35 12/06/17 06:35 96 12/06/17 04:05 21 126/68 (87) 12/05/17 20:00 98.9 Intake and Output 12/06/17 12/06/17 12/07/17 08:00 16:00 00:00 Intake Total 1194 ml Output Total 875 ml Balance 319 ml (Zack Ramirez) Physical Examination GENERAL: Trached and mechanically ventilated. No apparent distress. HEENT: PERRLA 3 mm brisk. Trach in place. RESP: CTA bilaterally. Trached. HEART: NSR. No murmurs. ABD: Soft positive bs SKIN: Incision clean and dry. No signs of infection. Pt with skin breakdown forehead without signs of infection. MUSCULOSKELETAL: Moving left-sided extremities spontaneously. Right upper extremity dense paresis, some spontaneous movement in RLE proximally more than distally. NEUROLOGICAL: She is sedated on Versed and reportedly gets agitated when weaned off. Pt opens her eyes to voice. PERRLA 3 mm brisk. Following some simple commands sticks out tongue, fruit tester left hand and moves toes on left. Right upper extremity dense paresis, some movement in RLE proximally more than distally. (Zack Ramirez) Lab, Micro, Other Results Last Impressions Chest X-Ray 12/05/17 0600 Signed Impressions: Service Date/Time: Tuesday, December 05, 2017 04:28 - CONCLUSION: 1. Mild patchy opacity is now noted in the left lung base. This could represent early pneumonia. 2. Interval removal of nasogastric tube. Julian Gutierrez MD Abdomen X-Ray 12/03/17 0000 Signed Impressions: Service Date/Time: Sunday, December 03, 2017 10:38 - CONCLUSION: No significant small or large bowel loop dilation. Anurag Carrion MD Head CT 11/26/17 0000 Signed Impressions: Service Date/Time: Monday, November 27, 2017 04:18 - CONCLUSION: Decreased pneumocephalus, stable intracranial intra-axial extra-axial hemorrhage and left parietal edema, with postsurgical changes and midline shift. Ariel Nath MD Upper Extremity Ultrasound 11/25/17 0000 Signed Impressions: Service Date/Time: Saturday, November 25, 2017 18:56 - CONCLUSION: Positive for deep venous thrombosis bilateral extremities, right worse than left. Anurag Carrion MD Lower Extremity Ultrasound 11/25/17 0000 Signed Impressions: Service Date/Time: Saturday, November 25, 2017 17:50 - CONCLUSION: Negative for deep venous thrombosis bilateral lower extremity. Anurag Carrion MD Abdomen/Pelvis CT 11/21/17 0000 Signed Impressions: Service Date/Time: Tuesday, November 21, 2017 21:37 - CONCLUSION: 1. No evidence to indicate pancreatitis. 2. Multiple stones in the gallbladder. 3. Multiple bilateral renal calculi.. 4. No significant changes compared to the prior exam. Meir Donnelly MD GI Procedure 11/20/17 0000 Signed Impressions: Service Date/Time: Monday, November 20, 2017 16:40 - CONCLUSION: ERCP as above. Jose Echevarria MD (Zack Ramirez) Medical Decision Making Impression and Plan A: Large left posterior temporal lobe prior low but occipital lobe hemorrhagic stroke with associated moderate mass effect and midline shift. Chronic neck and back pain with intrathecal pump placement which was not refilled due to [facility] of [facility] reportedly. Likely is undergoing opiate withdrawal. Biliary obstruction with jaundice status post ERCP History of COPD Staph epidermidis bacteremia 2 with the urinary tract infection. Pt has since had negative BC. P: Continue with critical care weaning vent. Continue to monitor Neuro exam Continue with rehab efforts. Dr. Womack is okay with full anticoagulation at this point but there is a increased risk of hemorrhage that family would need to accept. (Zack Ramirez) Attending Statement The exam, history, and the medical decision-making described in the above note were completed with the assistance of the mid-level provider. I reviewed and agree with the findings presented. I attest that I had a [id number] encounter with the patient on the same day, and personally performed and documented my assessment and findings in the medical record. (Og Womack MD) Zack Ramirez Dec 06, 2017 09:45 Og Womack MD Dec 06, 2017 11:42
--- NOTE | 2017-12-06 13:15 | HHI.CCPN ---
Subjective Remarks/Hospital Course 62-year-old female with a past medical history significant for chronic pain with morphine pump, fibromyalgia, celiac disease and anxiety presented initially to the hospital for evaluation of leg spasms. The patient reports that she woke up approximately 1 AM and "could not control her legs." Her daughter gave her a 30 mg tablet of morphine to help with her symptoms yet they persisted. She was admitted to [facility] floor for further evaluation where she became suddenly lethargic and weak on the right side. The CT of the head was done immediately and shows large posterior parietal lobe hemorrhagic stroke with brain edema. She was immediately intubated for an airway protection and started on hyperosmolar therapy. 11/22: Patient underwent Left parietal craniotomy for intracerebral hematoma evacuation; Left frontal gt hole placement for ventriculostomy by Dr. Womack. Seen in the ICU immediately postop. Profoundly hypotensive systolic blood pressure initially in the 50s. Stat bolus of LR was ordered by anesthesia. Levophed increased to 12 mcg/min with improvement in systolic blood pressure to 110s. We will place arterial line. Currently patient is under the influence of anesthesia, not moving any extremities 11/23: T-max 101.1. Continues to be febrile. Placing NG tube and Julian catheter. Right upper extremity without movement. Withdraws right lower externally. Spontaneous movement to left upper and lower extremity. Starting on tube feeding. 11/24: Tmax 101.1. Currently. 2 bowel movement overnight. Urine with Escherichia coli/staph epi in blood. Potassium phosphorus been replaced. Hypertonic saline held due to sodium 160+. Very arousable off sedation with ICP is controlled. 11/25: Continues to spike intermittent fevers. Tolerating tube feeding at goal. With persistent fevers we will consult infectious disease. ICPs are well controlled. Sodium remains at 163. 11/26: no significant changes. hyperosmolar therapy continues. peak pressures elevated today into the 40s, but plateau pressure 19, suggestive of a flow restriction. given albuterol neb and changed to PRVC mode from VCV with improvement in peak pressures. 11/27: T-max 101.5. Currently 100.9. Planned ventriculostomy removal today. Will discuss with neurosurgery initiation of of pharmacological treatment for bilateral upper extremity deep venous thrombosis. Tolerating tube feeds goal will be 55 cc an hour 11/28: Tmax 101.4. Currently afebrile. Currently on enoxaparin 40 mg subcutaneous daily. Will advance to full dose anticoagulation once okay with neurosurgery. Tolerating tube feeds at goal. 11/29: Tmax 101.1. Currently 99.9. Resting in bed in no distress. Tolerating tube feeds. 11/30: Tmax 101.5. Currently afebrile. Central line has been exchanged to a left IJ CVL. Tolerating tube feeds at goal. PSV trial ongoing. 12/01: Tmax 99.7. Currently 98.2.. Central line exchanged yesterday. Will attempt PSV trial today. Atelectasis. Okayed for tracheostomy per neurosurgery. We'll coordinate PEG tube placement as well possibly this . Will discuss with daughter. 12/02: On midazolam drip at 3 mg an hour. Plan for tracheostomy this AM. Hemodynamically stable. 12/03: Tmax 99. Currently afebrile. Currently on midazolam drip at 6 an hour. Status post percutaneous tracheostomy with #8 Shiley cuffed 12/02. Plan for PEG tube but EGD 12/04. Very small bowel movement yesterday. Subjective 12/04: Afebrile. Plan to OR today secondary to PEG tube placement." Anticoagulation on Hold. Midazolam increased to 7 mg an hour due to agitation. Stopped quetiapine yesterday due to daughter's request due to "headaches" in past 12/05: Continue weaning efforts. Start TFs again once PEG cleared. 12/06: Will start full anticoagulation for DVT. Risk of embolus and/or propagation exceeds risk of ICH. Objective Vital Signs Date Time Temp Pulse Resp B/P (MAP) Pulse Ox O2 Delivery O2 Flow Rate FiO2 12/06/17 12:16 100 35 12/06/17 06:35 96 12/06/17 04:05 21 126/68 (87) 12/05/17 20:00 98.9 Intake and Output 12/06/17 12/06/17 12/07/17 08:00 16:00 00:00 Intake Total 1194 ml Output Total 875 ml Balance 319 ml Result Diagram: 12/05/17 0452 12/05/17 0452 Imaging Last Impressions Abdomen X-Ray 12/03/17 0000 Signed Impressions: Service Date/Time: Sunday, December 03, 2017 10:38 - CONCLUSION: No significant small or large bowel loop dilation. Anurag Carrion MD Chest X-Ray 12/02/17 0000 Signed Impressions: Service Date/Time: Saturday, December 02, 2017 12:10 - CONCLUSION: 1. Tracheostomy in good position. Stable left IJ catheter. 2. Otherwise, no significant interval change. 3. Persistent patchy bilateral lower lung zone airspace disease. 4. Persistent prominence of the right paratracheal region. David Bacon MD Head CT 11/26/17 0000 Signed Impressions: Service Date/Time: Monday, November 27, 2017 04:18 - CONCLUSION: Decreased pneumocephalus, stable intracranial intra-axial extra-axial hemorrhage and left parietal edema, with postsurgical changes and midline shift. Ariel Nath MD Upper Extremity Ultrasound 11/25/17 0000 Signed Impressions: Service Date/Time: Saturday, November 25, 2017 18:56 - CONCLUSION: Positive for deep venous thrombosis bilateral extremities, right worse than left. Anurag Carrion MD Lower Extremity Ultrasound 11/25/17 0000 Signed Impressions: Service Date/Time: Saturday, November 25, 2017 17:50 - CONCLUSION: Negative for deep venous thrombosis bilateral lower extremity. Anurag Carrion MD Abdomen/Pelvis CT 11/21/17 0000 Signed Impressions: Service Date/Time: Tuesday, November 21, 2017 21:37 - CONCLUSION: 1. No evidence to indicate pancreatitis. 2. Multiple stones in the gallbladder. 3. Multiple bilateral renal calculi.. 4. No significant changes compared to the prior exam. Meir Donnelly MD GI Procedure 11/20/17 0000 Signed Impressions: Service Date/Time: Monday, November 20, 2017 16:40 - CONCLUSION: ERCP as above. Jose Echevarria MD Objective Remarks GENERAL: 64-year-old female currently resting in bed on ventilator via tracheostomy SKIN: Warm and dry. HEAD: Circumferential craniotomy dressing in place and left frontal EVD in place EYES: No scleral icterus. No injection or drainage. Pupils bilaterally 2 mm reactive ENT: Right NG tube. NECK: Supple, trachea midline. No JVD. Left IJ CVL is clean dry and intact as well. Tracheostomy site is clean dry and intact without bleeding CARDIOVASCULAR: Tachycardic, RR. Without murmurs, gallops, or rubs. No JVD. RESPIRATORY: Breath sounds equal bilaterally. No accessory muscle use. No wheezing, good air entry. GASTROINTESTINAL: Abdomen soft, non-tender, nondistended. Subcutaneous morphine pump in the right upper quadrant. MUSCULOSKELETAL: Bilateral upper extremity edema extending to hands. Well perfused. NEURO EXAM: Patient is intubated, sedated. pupils equal, round, reactive. No movement right upper extremity. Withdraws to pain right lower extremity. Spontaneous moving left upper and lower extremity. Nods head to simple questions appropriately. Date of Insertion: Nov 30, 2017 Line: Central Venous Catheter Side: Left Location: Internal, Jugular A/P Assessment and Plan NEURO/PSYCH: Large acute intraparenchymal hemorrhage involving the left parietal lobe Midline shift to the right by 9 mm Subarachnoid hemorrhage and cerebral edema on the left side Depression/anxiety Chronic pain on Morphine pump Chronic opioid use [place] History of C-spine fusion Status post left parietal craniotomy for intracerebral hematoma evacuation, Left frontal gt hole placement for ventriculostomy by Dr. Womack. Left ventric removed 11/27 - 3% sodium chloride infusion, target Na 150-155 currently on hold is currently 153 -Currently on levetiracetam 500 mg IV every 12 hours -Propofol switched to midazolam drip due to hypotension currently at 7 mg an hour Holding buspirone 30 mg twice daily and venlafaxine 50 mg twice daily for depression/anxiety. Resume when clinically indicated Holding acetaminophen/hydrocodone 325/7.51 tab every 6 hours as needed pain Holding scheduled morphine sulfate 30 mg every 12 hours Morphine liquid 10 mg every 6 hours scheduled with 1-2 mg every 3 hours as needed pain 1 through 10 Acetaminophen 650 mg every 6 hours as needed for fever Started quetiapine 50 mg twice a day in attempt to wean off midazolam drip however daughter states adverse reaction with headaches hence discontinued Venlafaxine 50 mill grams twice a day and trazodone 50 mg at night/home medication RESP: Acute respiratory failure Ongoing tobaccoism COPD - Intubated for an airway protection Status post percutaneous tracheostomy 12/02 #8 Malachi [facility] 14/550/10/20/40 PSV trials daily as tolerated Ventilator bundle Albuterol/ipratropium aerosols every 6 hours with albuterol aerosols every 2 hours as needed dyspnea Tobacco cessation booklet provided when appropriate CVS: Hypotension/shock Mild lactic acidosis History of hypertension -Currently off norepinephrine target map above 65 by calculation CPP 50-70. - 3% saline currently on hold with sodium currently > 150 - Hold metoprolol and lisinopril while on vasopressors/borderline mean arterial pressure GI: Acute pancreatitis - resolved Opioid-induced constipation Cholelithiasis History of celiac disease 11/21/17 s/p ERCP with sphincterotomy and balloon extraction, finding choledocholithiasis. increase 0.8. tumor markers WNL. lipase WNL. WBC significant increase today, appears diaphoretic. tachycardic. GI signed off Resumed tube feedings with vital 1.5 goal 55 cc an hour per nutrition's recommendations with PEG tube plan Monday Lansoprazole 30 mg daily for GI prophylaxis. Continue docusate sodium 100 mg twice daily and senna 8.6 mg twice daily. Patient is on polyethylene glycol 17 g twice daily at home for constipation which is been continued along with lactulose 30 cc 4 times a day 1 dose Methylnaltrexone 12 mg subcutaneous 1. : Julian catheter for accurate I's and O's in a critically ill patient FEN/RENAL: Nephrolithiasis Hypernatremia Hyper-magnesium - Monitor renal function closely, maintain Julian Free water 300 cc every 8 hours ID: E. coli UTI Coag negative staph bacteremia hold ceftriaxone per infectious disease Pertinent cultures 11/26 -CSF -no growth 11/25 -blood cultures 2 -no growth 11/19 -UA -pansensitive E. coli 11/20 -blood cultures 2 -coag negative staph/staph epi pansensitive 11/22 -blood cultures 2 -no growth to date Appreciate infectious disease for further antibiotic coverage HEME: Leukocytosis Normocytic anemia Sickle cell trait? Right subclavian/axillary and brachial DVT. Left cephalic superficial thrombus/ brachial thrombus - Leukocytosis most likely stress related - Monitor CBC daily. Follow trend Upper extremity also revealed bilateral superficial and deep venous thrombus as above - Start full anticoagulation 12/06 with lovenox 70 bid DVT GI prophylaxis - Teds SCDs Lovenox covers DVT px. Continue post procedure. - Iansoprazole 30 mg by tube daily Access - Left IJ CVL day 7 placed 11/30 Overall impression: Slow progress. Unable to wean from ventilator. Reyes Shelton MD Dec 06, 2017 13:15
[2017-12-06] MEDS: ENOXAPARIN SODIUM 80 MG/0.8 ML SYRINGE SQ SCH (15:49)
[2017-12-06] MEDS: MIDAZOLAM 100 MG/100 ML INJ 100 ML IV PRN (16:26)
[2017-12-06] MEDS: traZODone HCL 50 MG TAB PO SCH (20:24)
[2017-12-07] VITALS (18 sets, daily range): BP systolic 92–156; BP diastolic 57–68; PULSE 91–109; RESP 16–25; TEMP 99.4–100.6; O2SAT 96–100
[2017-12-07] MEDS: MORPHINE SULFATE ORAL SOLN 10 MG/0.5 ML SYRINGE NG SCH ×6 (00:25→21:31)
[2017-12-07] MEDS: ENOXAPARIN SODIUM 80 MG/0.8 ML SYRINGE SQ SCH ×2 (02:54→14:00)
[2017-12-07] MEDS: VENLAFAXINE HCL 25 MG TAB PO SCH ×2 (03:26→18:05)
[2017-12-07] MEDS: ACETAMINOPHEN 650 MG/20.3 ML UDC NG PRN (04:52)
[2017-12-07 04:55] LABS: AUTOMATED NEUTROPHIL # 7.3 TH/MM3 (1.8-7.7); BASOPHIL % 0.4 % (0.0-2.0); EOSINOPHIL # 0.1 TH/MM3 (0-0.4); EOSINOPHIL % 1.1 % (0.0-4.0); HEMATOCRIT 24.6 % (35.0-46.0); HEMOGLOBIN 8.1 GM/DL (11.6-15.3); LYMPH % 16.2 % (9.0-44.0); LYMPHOCYTE # 1.6 TH/MM3 (1.0-4.8); MEAN CELL VOLUME 85.7 FL (80.0-100.0); MEAN CORPUSCULAR HEMOGLOBIN 28.4 PG (27.0-34.0); MEAN CORPUSCULAR HGB CONC 33.2 % (32.0-36.0); MEAN PLATELET VOLUME 8.2 FL (7.0-11.0); MONO % 7.7 % (0.0-8.0); MONOCYTE # 0.8 TH/MM3 (0-0.9); NEUT % 74.6 % (16.0-70.0); PLATELET COUNT 351 TH/MM3 (150-450); RED BLOOD COUNT 2.87 MIL/MM3 (4.00-5.30); RED CELL DISTRIBUTION WIDTH 15.6 % (11.6-17.2); WHITE BLOOD COUNT 9.7 TH/MM3 (4.0-11.0)
[2017-12-07 05:18] LABS: ALBUMIN 1.8 GM/DL (3.4-5.0); ALT (GPT) 76 U/L (10-53); AST (GOT) 56 U/L (15-37); BICARBONATE 24.9 MEQ/L (21.0-32.0); CALCIUM 9.2 MG/DL (8.5-10.1); CHLORIDE 121 MEQ/L (98-107); CREATININE 0.96 MG/DL (0.50-1.00); GLOMERULAR FILTRATION RATE 59 ML/MIN (>89); GLUCOSE,RANDOM 112 MG/DL (74-106); SODIUM (NA) 152 MEQ/L (136-145)
[2017-12-07 05:21] LABS: ALKALINE PHOSPHATASE 123 U/L (45-117); BLOOD UREA NITROGEN 31 MG/DL (7-18); TOTAL BILIRUBIN ADULT 0.3 MG/DL (0.2-1.0); TOTAL PROTEIN 6.4 GM/DL (6.4-8.2)
[2017-12-07] MEDS: LACTULOSE SYRUP 20 GM/30 ML CUP NG SCH ×3 (06:00→18:00)
[2017-12-07] MEDS: ARTIFICIAL TEARS OPTH SOLN 15 ML BTL EACH EYE SCH ×3 (06:00→22:00)
[2017-12-07] MEDS: FREE WATER G-TUBE SCH ×3 (06:00→22:00)
[2017-12-07] MEDS: NYSTATIN SUSP 500,000 U/5 ML CUP SWISH-SWAL SCH ×4 (08:01→21:31)
[2017-12-07] MEDS: TRIAMCINOLONE ACETONIDE 0.1% CREAM 15 GM TOPICAL SCH ×2 (08:01→21:00)
[2017-12-07] MEDS: SENNOSIDES SYRUP 8.8 MG/5 ML CUP NG SCH ×2 (08:01→21:00)
[2017-12-07] MEDS: LANSOPRAZOLE SOLUTAB 30 MG TAB NG SCH (08:01)
[2017-12-07] MEDS: DOCUSATE SODIUM 100 MG/10 ML UDC PO SCH ×2 (08:01→21:31)
[2017-12-07] MEDS: levETIRAcetam 500 MG/5 ML UDC NG SCH ×2 (08:01→21:31)
[2017-12-07] MEDS: POLYETHYLENE GLYCOL 17 GM PKG NG SCH ×2 (08:02→21:00)
[2017-12-07] MEDS: SODIUM CHLORIDE 0.9% FLUSH 10 ML FLUSH IV FLUSH SCH ×3 (08:02→21:32)
--- NOTE | 2017-12-07 08:58 | HHI.CCPN ---
Subjective Remarks/Hospital Course 62-year-old female with a past medical history significant for chronic pain with morphine pump, fibromyalgia, celiac disease and anxiety presented initially to the hospital for evaluation of leg spasms. The patient reports that she woke up approximately 1 AM and "could not control her legs." Her daughter gave her a 30 mg tablet of morphine to help with her symptoms yet they persisted. She was admitted to [facility] floor for further evaluation where she became suddenly lethargic and weak on the right side. The CT of the head was done immediately and shows large posterior parietal lobe hemorrhagic stroke with brain edema. She was immediately intubated for an airway protection and started on hyperosmolar therapy. 11/22: Patient underwent Left parietal craniotomy for intracerebral hematoma evacuation; Left frontal gt hole placement for ventriculostomy by Dr. Womack. Seen in the ICU immediately postop. Profoundly hypotensive systolic blood pressure initially in the 50s. Stat bolus of LR was ordered by anesthesia. Levophed increased to 12 mcg/min with improvement in systolic blood pressure to 110s. We will place arterial line. Currently patient is under the influence of anesthesia, not moving any extremities 11/23: T-max 101.1. Continues to be febrile. Placing NG tube and Julian catheter. Right upper extremity without movement. Withdraws right lower externally. Spontaneous movement to left upper and lower extremity. Starting on tube feeding. 11/24: Tmax 101.1. Currently. 2 bowel movement overnight. Urine with Escherichia coli/staph epi in blood. Potassium phosphorus been replaced. Hypertonic saline held due to sodium 160+. Very arousable off sedation with ICP is controlled. 11/25: Continues to spike intermittent fevers. Tolerating tube feeding at goal. With persistent fevers we will consult infectious disease. ICPs are well controlled. Sodium remains at 163. 11/26: no significant changes. hyperosmolar therapy continues. peak pressures elevated today into the 40s, but plateau pressure 19, suggestive of a flow restriction. given albuterol neb and changed to PRVC mode from VCV with improvement in peak pressures. 11/27: T-max 101.5. Currently 100.9. Planned ventriculostomy removal today. Will discuss with neurosurgery initiation of of pharmacological treatment for bilateral upper extremity deep venous thrombosis. Tolerating tube feeds goal will be 55 cc an hour 11/28: Tmax 101.4. Currently afebrile. Currently on enoxaparin 40 mg subcutaneous daily. Will advance to full dose anticoagulation once okay with neurosurgery. Tolerating tube feeds at goal. 11/29: Tmax 101.1. Currently 99.9. Resting in bed in no distress. Tolerating tube feeds. 11/30: Tmax 101.5. Currently afebrile. Central line has been exchanged to a left IJ CVL. Tolerating tube feeds at goal. PSV trial ongoing. 12/01: Tmax 99.7. Currently 98.2.. Central line exchanged yesterday. Will attempt PSV trial today. Atelectasis. Okayed for tracheostomy per neurosurgery. We'll coordinate PEG tube placement as well possibly this . Will discuss with daughter. 12/02: On midazolam drip at 3 mg an hour. Plan for tracheostomy this AM. Hemodynamically stable. 12/03: Tmax 99. Currently afebrile. Currently on midazolam drip at 6 an hour. Status post percutaneous tracheostomy with #8 Shiley cuffed 12/02. Plan for PEG tube but EGD 12/04. Very small bowel movement yesterday. Subjective 12/04: Afebrile. Plan to OR today secondary to PEG tube placement." Anticoagulation on Hold. Midazolam increased to 7 mg an hour due to agitation. Stopped quetiapine yesterday due to daughter's request due to "headaches" in past 12/05: Continue weaning efforts. Start TFs again once PEG cleared. 12/06: Will start full anticoagulation for DVT. Risk of embolus and/or propagation exceeds risk of ICH. 12/07: Daughter understands and accepts risks of full anticoagulation after brain bleed. Presence of multiple DVTs requires treatment. Objective Vital Signs Date Time Temp Pulse Resp B/P (MAP) Pulse Ox O2 Delivery O2 Flow Rate FiO2 12/07/17 08:45 98 35 12/07/17 06:00 92 12/07/17 04:26 22 12/07/17 04:00 100.6 106/57 (73) Intake and Output 12/07/17 12/07/17 12/08/17 08:00 16:00 00:00 Intake Total 1096 ml Output Total 900 ml Balance 196 ml Result Diagram: 12/07/17 0435 12/07/17 0435 Imaging Last Impressions Abdomen X-Ray 12/03/17 0000 Signed Impressions: Service Date/Time: Sunday, December 03, 2017 10:38 - CONCLUSION: No significant small or large bowel loop dilation. Anurag Carrion MD Chest X-Ray 12/02/17 0000 Signed Impressions: Service Date/Time: Saturday, December 02, 2017 12:10 - CONCLUSION: 1. Tracheostomy in good position. Stable left IJ catheter. 2. Otherwise, no significant interval change. 3. Persistent patchy bilateral lower lung zone airspace disease. 4. Persistent prominence of the right paratracheal region. David Bacon MD Head CT 11/26/17 0000 Signed Impressions: Service Date/Time: Monday, November 27, 2017 04:18 - CONCLUSION: Decreased pneumocephalus, stable intracranial intra-axial extra-axial hemorrhage and left parietal edema, with postsurgical changes and midline shift. Ariel Nath MD Upper Extremity Ultrasound 11/25/17 0000 Signed Impressions: Service Date/Time: Saturday, November 25, 2017 18:56 - CONCLUSION: Positive for deep venous thrombosis bilateral extremities, right worse than left. Anurag Carrion MD Lower Extremity Ultrasound 11/25/17 0000 Signed Impressions: Service Date/Time: Saturday, November 25, 2017 17:50 - CONCLUSION: Negative for deep venous thrombosis bilateral lower extremity. Anurag Carrion MD Abdomen/Pelvis CT 11/21/17 0000 Signed Impressions: Service Date/Time: Tuesday, November 21, 2017 21:37 - CONCLUSION: 1. No evidence to indicate pancreatitis. 2. Multiple stones in the gallbladder. 3. Multiple bilateral renal calculi.. 4. No significant changes compared to the prior exam. Meir Donnelly MD GI Procedure 11/20/17 0000 Signed Impressions: Service Date/Time: Monday, November 20, 2017 16:40 - CONCLUSION: ERCP as above. Jose Echevarria MD Objective Remarks GENERAL: 64-year-old female currently resting in bed on ventilator via tracheostomy, tolerates SBTs. SKIN: Warm and dry. HEAD: Circumferential craniotomy dressing in place and left frontal EVD in place EYES: No scleral icterus. No injection or drainage. Pupils bilaterally 2 mm reactive ENT: Right NG tube. NECK: Supple, trachea midline. No JVD. Left IJ CVL is clean dry and intact as well. Tracheostomy site is clean dry and intact without bleeding CARDIOVASCULAR: Tachycardic, RR. Without murmurs, gallops, or rubs. No JVD. RESPIRATORY: Breath sounds equal bilaterally. No accessory muscle use. No wheezing, good air entry. Comfortable. GASTROINTESTINAL: Abdomen soft, non-tender, nondistended. Subcutaneous morphine pump in the right upper quadrant. MUSCULOSKELETAL: Bilateral 1+ upper extremity edema extending to hands. Well perfused. NEURO EXAM: Patient is intubated, lightly sedated. pupils equal, round, reactive. No movement right upper extremity. Withdraws to pain right lower extremity. Spontaneous moving left upper and lower extremity. Nods head to simple questions appropriately. Date of Insertion: Nov 30, 2017 Line: Central Venous Catheter Side: Left Location: Internal, Jugular A/P Assessment and Plan NEURO/PSYCH: Large acute intraparenchymal hemorrhage involving the left parietal lobe Midline shift to the right by 9 mm Subarachnoid hemorrhage and cerebral edema on the left side Depression/anxiety Chronic pain on Morphine pump Chronic opioid use [place] History of C-spine fusion Status post left parietal craniotomy for intracerebral hematoma evacuation, Left frontal gt hole placement for ventriculostomy by Dr. Womack. Left ventric removed 11/27 - 3% sodium chloride infusion, target Na 150-155 currently on hold is currently 153 -Currently on levetiracetam 500 mg IV every 12 hours -Propofol switched to midazolam drip due to hypotension currently at 7 mg an hour Holding buspirone 30 mg twice daily and venlafaxine 50 mg twice daily for depression/anxiety. Resume when clinically indicated Holding acetaminophen/hydrocodone 325/7.51 tab every 6 hours as needed pain Holding scheduled morphine sulfate 30 mg every 12 hours Morphine liquid 10 mg every 6 hours scheduled with 1-2 mg every 3 hours as needed pain 1 through 10 Acetaminophen 650 mg every 6 hours as needed for fever Started quetiapine 50 mg twice a day in attempt to wean off midazolam drip however daughter states adverse reaction with headaches hence discontinued Venlafaxine 50 mill grams twice a day and trazodone 50 mg at night/home medication RESP: Acute respiratory failure Ongoing tobaccoism COPD - Intubated for an airway protection Status post percutaneous tracheostomy 12/02 #8 Malachi [facility] 14/550/40 PSV trials daily as tolerated Ventilator bundle Albuterol/ipratropium aerosols every 6 hours with albuterol aerosols every 2 hours as needed dyspnea Tobacco cessation booklet provided when appropriate CVS: Hypotension/shock Mild lactic acidosis History of hypertension -Currently off norepinephrine target map above 65 by calculation CPP 50-70. - 3% saline currently on hold with sodium currently > 150 - Hold metoprolol and lisinopril while on vasopressors/borderline mean arterial pressure GI: Acute pancreatitis - resolved Opioid-induced constipation Cholelithiasis History of celiac disease 11/21/17 s/p ERCP with sphincterotomy and balloon extraction, finding choledocholithiasis. increase 0.8. tumor markers WNL. lipase WNL. WBC significant increase today, appears diaphoretic. tachycardic. GI signed off Resumed tube feedings with vital 1.5 goal 55 cc an hour per nutrition's recommendations with PEG tube plan Monday Lansoprazole 30 mg daily for GI prophylaxis. Continue docusate sodium 100 mg twice daily and senna 8.6 mg twice daily. Patient is on polyethylene glycol 17 g twice daily at home for constipation which is been continued along with lactulose 30 cc 4 times a day 1 dose Methylnaltrexone 12 mg subcutaneous 1. : Julian catheter for accurate I's and O's in a critically ill patient FEN/RENAL: Nephrolithiasis Hypernatremia Hyper-magnesium - Monitor renal function closely, ? Julian Free water 300 cc every 8 hours ID: E. coli UTI Coag negative staph bacteremia hold ceftriaxone per infectious disease Pertinent cultures 11/26 -CSF -no growth 11/25 -blood cultures 2 -no growth 11/19 -UA -pansensitive E. coli 11/20 -blood cultures 2 -coag negative staph/staph epi pansensitive 11/22 -blood cultures 2 -no growth to date Appreciate infectious disease for further antibiotic coverage HEME: Leukocytosis Normocytic anemia Sickle cell trait? Right subclavian/axillary and brachial DVT. Left cephalic superficial thrombus/ brachial thrombus - Leukocytosis most likely stress related - Monitor CBC daily. Follow trend Upper extremity also revealed bilateral superficial and deep venous thrombus as above - Start full anticoagulation 12/06 with lovenox 70 mg bid DVT GI prophylaxis - Teds SCDs Lovenox covers DVT px. Continue post procedure. - Iansoprazole 30 mg by tube daily Access - Left IJ CVL day 7 placed 11/30 Overall impression: Slow progress. Unable to wean from ventilator. Will need LTAC. Reyes Shelton MD Dec 07, 2017 08:58
--- NOTE | 2017-12-07 10:09 | HHI.NSPN ---
History Chief Complaint: ICH s/p left crani for evacuation. Interval History 62-year-old female admitted on 11/19/2017 after she presented to the emergency room with symptoms that seem to be related to morphine withdrawal with the shaking in her lower extremities along with the anxiety abdominal pain and nausea. She has an intrathecal pain pump placed to which the daughter states enters into the cervical and lumbar spine last year with a last pump refill with morphine 3 months ago. The pain specialist informed her that she could not refill the pump anymore since the [place] was not authorizing this. She has a past medical history significant for chronic neck and back pain with history of cervical and lumbar spine surgeries, COPD, fibromyalgia, celiac disease and anxiety. She was admitted to [facility] for further evaluation where she became suddenly lethargic, aphasic and weak on the right side yesterday after the endoscopy for biliary obstruction. The CT of the head was done and shows large posterior parietal lobe hemorrhagic stroke with brain edema. She was transferred to the intensive care unit and intubated for an airway protection and started on hyperosmolar therapy. Neurosurgery has been consulted this morning for the cerebral hemorrhage. 11/22/17: Pt underwent a Left parietal craniotomy for intracerebral hematoma evacuation; Left frontal gt hole placement for ventriculostomy early this morning. Post op assessment done by me reveals she is sedated on Diprivan. Pupils are 3mm bilaterally, reactive bilaterally. Ventriculostomy drain in place at 10cm H20 without drainage or waveform and ICPs read 12. There is air in the line. 11/23/17: Waveform improved yesterday after flushing and again this morning was dampened with air in the ventriculostomy line. This was flushed again using sterile technique with betadine swab at the CSF port and a waveform returned and ICPs are 7. Pt is sedated and intubated. She opens her eyes. Not following commands. 11/24/17: Pt sedated on Diprivan, held and pt starting to open eyes and becomes agitated. Not following commands. Ventriculostomy in place at [id number], ICP 7. 11/27/17: Pts sedation being weaned. Opens eyes slightly spontaneously. Not following commands. Right hemiparesis. 11/28/17: Pt sedation being weaned, on low dose Versed drip. Opens eyes. Gets agitated when stimulated. Right hemiparesis persists. Not following commands for me, pt is likely aphasic also given location of her hemorrhage. 11/29/17: Pt more awake today. She follows commands. Intubated. Pupils 3mm bilaterally. RUE with dense paresis, some movement in RLE more proximally than distally. 11/30/17: Pt sedated on low dose Versed drip. Not opening eyes or following commands secondary to sedation. Pupils 3mm bilaterally, reactive bilaterally. 12/04/17: Pt sedated on Versed. Opens eyes to stimulation. Follows some simple commands LEs. Not following with RUE. Not verbalizing. 12/05/17: Pt opens eyes to voice. Follows some commands on left side. Right dense hemiparesis. not verbalizing. 12/06/17: Pt sedated on Versed 10 but opens eyes slightly and follows commands- sticks out tongue, senior security engineer left hand and moves toes. 12/07/17 Pt sedated on Versed by held this morning. Follows some simple commands this am- sticks out tongue. Office Technician left hand and moves toes. Right dense weakness RUE move than RLE. System Review Comments Not able to obtain given clinical condition. Exam Results Vital Signs Date Time Temp Pulse Resp B/P (MAP) Pulse Ox O2 Delivery O2 Flow Rate FiO2 12/07/17 08:45 98 35 12/07/17 06:00 92 12/07/17 04:26 22 12/07/17 04:00 100.6 106/57 (73) Intake and Output 12/07/17 12/07/17 12/08/17 08:00 16:00 00:00 Intake Total 1096 ml Output Total 900 ml Balance 196 ml Physical Examination GENERAL: Trached and mechanically ventilated. Being placed on CPAP this morning. No apparent distress. HEENT: PERRLA 3 mm brisk. Trach in place. RESP: CTA bilaterally. Trached. HEART: NSR. No murmurs. ABD: Soft positive bs SKIN: Incision clean and dry. No signs of infection. Pt with skin breakdown forehead without signs of infection. MUSCULOSKELETAL: Moving left-sided extremities spontaneously. Right upper extremity dense paresis, some spontaneous movement in RLE proximally more than distally. NEUROLOGICAL: She is sedated on Versed and reportedly gets agitated when weaned off. Currently on hold for exam. Pt opens her eyes to voice. PERRLA 3 mm brisk. Following some simple commands sticks out tongue, senior security engineer left hand and moves toes on left. Right upper extremity dense paresis, some movement in RLE proximally more than distally. Lab, Micro, Other Results Last Impressions Chest X-Ray 12/05/17 0600 Signed Impressions: Service Date/Time: Tuesday, December 05, 2017 04:28 - CONCLUSION: 1. Mild patchy opacity is now noted in the left lung base. This could represent early pneumonia. 2. Interval removal of nasogastric tube. Julian Gutierrez MD Abdomen X-Ray 12/03/17 0000 Signed Impressions: Service Date/Time: Sunday, December 03, 2017 10:38 - CONCLUSION: No significant small or large bowel loop dilation. Anurag Carrion MD Head CT 11/26/17 0000 Signed Impressions: Service Date/Time: Monday, November 27, 2017 04:18 - CONCLUSION: Decreased pneumocephalus, stable intracranial intra-axial extra-axial hemorrhage and left parietal edema, with postsurgical changes and midline shift. Ariel Nath MD Upper Extremity Ultrasound 11/25/17 0000 Signed Impressions: Service Date/Time: Saturday, November 25, 2017 18:56 - CONCLUSION: Positive for deep venous thrombosis bilateral extremities, right worse than left. Anurag Carrion MD Lower Extremity Ultrasound 11/25/17 0000 Signed Impressions: Service Date/Time: Saturday, November 25, 2017 17:50 - CONCLUSION: Negative for deep venous thrombosis bilateral lower extremity. Anurag Carrion MD Abdomen/Pelvis CT 11/21/17 0000 Signed Impressions: Service Date/Time: Tuesday, November 21, 2017 21:37 - CONCLUSION: 1. No evidence to indicate pancreatitis. 2. Multiple stones in the gallbladder. 3. Multiple bilateral renal calculi.. 4. No significant changes compared to the prior exam. Meir Donnelly MD GI Procedure 11/20/17 0000 Signed Impressions: Service Date/Time: Billy, November 20, 2017 16:40 - CONCLUSION: ERCP as above. Jose Echevarria MD Laboratory Tests Test 12/07/17 04:35 White Blood Count 9.7 TH/MM3 Red Blood Count 2.87 MIL/MM3 Hemoglobin 8.1 GM/DL Hematocrit 24.6 % Mean Corpuscular Volume 85.7 FL Mean Corpuscular Hemoglobin 28.4 PG Mean Corpuscular Hemoglobin Concent 33.2 % Red Cell Distribution Width 15.6 % Platelet Count 351 TH/MM3 Mean Platelet Volume 8.2 FL Neutrophils (%) (Auto) 74.6 % Lymphocytes (%) (Auto) 16.2 % Monocytes (%) (Auto) 7.7 % Eosinophils (%) (Auto) 1.1 % Basophils (%) (Auto) 0.4 % Neutrophils # (Auto) 7.3 TH/MM3 Lymphocytes # (Auto) 1.6 TH/MM3 Monocytes # (Auto) 0.8 TH/MM3 Eosinophils # (Auto) 0.1 TH/MM3 Basophils # (Auto) 0.0 TH/MM3 CBC Comment DIFF FINAL Differential Comment Blood Urea Nitrogen 31 MG/DL Creatinine 0.96 MG/DL Random Glucose 112 MG/DL Total Protein 6.4 GM/DL Albumin 1.8 GM/DL Calcium Level 9.2 MG/DL Alkaline Phosphatase 123 U/L Aspartate Amino Transf (AST/SGOT) 56 U/L Alanine Aminotransferase (ALT/SGPT) 76 U/L Total Bilirubin 0.3 MG/DL Sodium Level 152 MEQ/L Potassium Level 3.4 MEQ/L Chloride Level 121 MEQ/L Carbon Dioxide Level 24.9 MEQ/L Anion Gap 6 MEQ/L Estimat Glomerular Filtration Rate 59 ML/MIN Medical Decision Making Impression and Plan A: Large left posterior temporal lobe prior low but occipital lobe hemorrhagic stroke with associated moderate mass effect and midline shift. Chronic neck and back pain with intrathecal pump placement which was not refilled due to [facility] of [facility]. Likely is undergoing opiate withdrawal. Biliary obstruction with jaundice status post ERCP History of COPD Staph epidermidis bacteremia 2 with the urinary tract infection. Pt has since had negative BC. P: Continue with critical care weaning vent. Continue to monitor Neuro exam Continue with rehab efforts. Dr. Womack is okay with full anticoagulation at this point but there is a increased risk of hemorrhage that family would need to accept. I discussed this with the daughter at bedside and she stated she is willing to accept that risk and is okay with full anticoagulation. We also discussed that pt not be able to be weaned off the ventilator in the hospital and may need LTAC facility and from a neurosurgical standpoint she is stable for this. I also discussed with Dr. Guillory who agrees she will likely need an LTAC. Zack Ramirez Dec 07, 2017 10:09 am
[2017-12-07] MEDS: traZODone HCL 50 MG TAB PO SCH (21:31)
[2017-12-08] VITALS (19 sets, daily range): BP systolic 101–145; BP diastolic 53–84; PULSE 85–110; RESP 14–27; TEMP 98.5–100.4; O2SAT 100
[2017-12-08] MEDS: ENOXAPARIN SODIUM 80 MG/0.8 ML SYRINGE SQ SCH ×2 (00:21→14:15)
[2017-12-08] MEDS: MORPHINE SULFATE ORAL SOLN 10 MG/0.5 ML SYRINGE NG SCH ×6 (00:22→22:07)
[2017-12-08] MEDS: ARTIFICIAL TEARS OPTH SOLN 15 ML BTL EACH EYE SCH ×3 (03:55→22:00)
[2017-12-08] MEDS: VENLAFAXINE HCL 25 MG TAB PO SCH ×2 (03:55→16:24)
[2017-12-08] MEDS: FREE WATER G-TUBE SCH ×3 (03:56→22:00)
[2017-12-08] MEDS: LACTULOSE SYRUP 20 GM/30 ML CUP NG SCH ×4 (03:56→18:00)
[2017-12-08 05:37] LABS: ALBUMIN 1.7 GM/DL (3.4-5.0); ALT (GPT) 94 U/L (10-53); AST (GOT) 66 U/L (15-37); BICARBONATE 26.1 MEQ/L (21.0-32.0); BLOOD UREA NITROGEN 29 MG/DL (7-18); CALCIUM 9.1 MG/DL (8.5-10.1); CHLORIDE 120 MEQ/L (98-107); CREATININE 0.83 MG/DL (0.50-1.00); GLOMERULAR FILTRATION RATE 69 ML/MIN (>89); GLUCOSE,RANDOM 150 MG/DL (74-106); SODIUM (NA) 152 MEQ/L (136-145)
[2017-12-08 05:38] LABS: ALKALINE PHOSPHATASE 124 U/L (45-117); TOTAL BILIRUBIN ADULT 0.3 MG/DL (0.2-1.0); TOTAL PROTEIN 6.2 GM/DL (6.4-8.2)
[2017-12-08] MEDS: SODIUM CHLORIDE 0.9% FLUSH 10 ML FLUSH IV FLUSH SCH ×3 (08:30→22:07)
[2017-12-08] MEDS: POLYETHYLENE GLYCOL 17 GM PKG NG SCH ×2 (09:00→21:00)
[2017-12-08] MEDS: SENNOSIDES SYRUP 8.8 MG/5 ML CUP NG SCH ×2 (09:00→21:00)
[2017-12-08] MEDS: LANSOPRAZOLE SOLUTAB 30 MG TAB NG SCH (09:00)
[2017-12-08] MEDS: NYSTATIN SUSP 500,000 U/5 ML CUP SWISH-SWAL SCH ×4 (09:00→22:06)
[2017-12-08] MEDS: TRIAMCINOLONE ACETONIDE 0.1% CREAM 15 GM TOPICAL SCH ×2 (09:00→21:00)
[2017-12-08] MEDS: DOCUSATE SODIUM 100 MG/10 ML UDC PO SCH ×2 (09:00→21:00)
[2017-12-08] MEDS: levETIRAcetam 500 MG/5 ML UDC NG SCH ×2 (09:00→22:07)
--- NOTE | 2017-12-08 10:04 | HHI.NSPN ---
History Chief Complaint: ICH s/p left crani for evacuation. Interval History 62-year-old female admitted on 11/19/2017 after she presented to the emergency room with symptoms that seem to be related to morphine withdrawal with the shaking in her lower extremities along with the anxiety abdominal pain and nausea. She has an intrathecal pain pump placed to which the daughter states enters into the cervical and lumbar spine last year with a last pump refill with morphine 3 months ago. The pain specialist informed her that she could not refill the pump anymore since the [place] was not authorizing this. She has a past medical history significant for chronic neck and back pain with history of cervical and lumbar spine surgeries, COPD, fibromyalgia, celiac disease and anxiety. She was admitted to [facility] for further evaluation where she became suddenly lethargic, aphasic and weak on the right side yesterday after the endoscopy for biliary obstruction. The CT of the head was done and shows large posterior parietal lobe hemorrhagic stroke with brain edema. She was transferred to the intensive care unit and intubated for an airway protection and started on hyperosmolar therapy. Neurosurgery has been consulted this morning for the cerebral hemorrhage. 11/22/17: Pt underwent a Left parietal craniotomy for intracerebral hematoma evacuation; Left frontal gt hole placement for ventriculostomy early this morning. Post op assessment done by me reveals she is sedated on Diprivan. Pupils are 3mm bilaterally, reactive bilaterally. Ventriculostomy drain in place at 10cm H20 without drainage or waveform and ICPs read 12. There is air in the line. 11/23/17: Waveform improved yesterday after flushing and again this morning was dampened with air in the ventriculostomy line. This was flushed again using sterile technique with betadine swab at the CSF port and a waveform returned and ICPs are 7. Pt is sedated and intubated. She opens her eyes. Not following commands. 11/24/17: Pt sedated on Diprivan, held and pt starting to open eyes and becomes agitated. Not following commands. Ventriculostomy in place at [id number], ICP 7. 11/27/17: Pts sedation being weaned. Opens eyes slightly spontaneously. Not following commands. Right hemiparesis. 11/28/17: Pt sedation being weaned, on low dose Versed drip. Opens eyes. Gets agitated when stimulated. Right hemiparesis persists. Not following commands for me, pt is likely aphasic also given location of her hemorrhage. 11/29/17: Pt more awake today. She follows commands. Intubated. Pupils 3mm bilaterally. RUE with dense paresis, some movement in RLE more proximally than distally. 11/30/17: Pt sedated on low dose Versed drip. Not opening eyes or following commands secondary to sedation. Pupils 3mm bilaterally, reactive bilaterally. 12/04/17: Pt sedated on Versed. Opens eyes to stimulation. Follows some simple commands LEs. Not following with RUE. Not verbalizing. 12/05/17: Pt opens eyes to voice. Follows some commands on left side. Right dense hemiparesis. not verbalizing. 12/06/17: Pt sedated on Versed 10 but opens eyes slightly and follows commands- sticks out tongue, phlebotomy director left hand and moves toes. 12/07/17 Pt sedated on Versed by held this morning. Follows some simple commands this am- sticks out tongue. Diesel Engine Inspector left hand and moves toes. Right dense weakness RUE move than RLE. 12/08/17: Pt off sedative drips. Pt much more awake in bed. She moves around a lot in bed secondary to chronic low back pain. She mouths words and follows commands. Trach in place and she is on CPAP. Review of Systems General: Negative for: fever, chills, insomnia Respiratory: Negative for: shortness of breath, cough, sputum Cardiovascular: Negative for: chest pain Gastrointestinal: Negative for: nausea, vomitting, diarrhea, constipation Exam Results Vital Signs Date Time Temp Pulse Resp B/P (MAP) Pulse Ox O2 Delivery O2 Flow Rate FiO2 12/08/17 09:57 30 12/08/17 08:44 100 35 12/08/17 06:00 90 12/08/17 04:00 98.8 141/65 (90) Intake and Output 12/08/17 12/08/17 12/09/17 08:00 16:00 00:00 Intake Total 1114 ml Output Total 750 ml Balance 364 ml Physical Examination GENERAL: Trached, on CPAP. Some restlessness. HEENT: PERRLA 3 mm brisk. Trach in place. RESP: CTA bilaterally. Trached. On CPAP. HEART: NSR. No murmurs. ABD: Soft positive bs SKIN: Incision clean and dry. No signs of infection. Pt with skin breakdown forehead without signs of infection. MUSCULOSKELETAL: Moving left-sided extremities spontaneously. Right upper extremity dense paresis, some spontaneous movement in RLE proximally more than distally. NEUROLOGICAL: She is off Versed drip and very awake and alert. She mouths words. PERRLA 3 mm brisk. Following simple commands sticks out tongue, phlebotomy director left hand and moves toes on left. Right upper extremity dense paresis, some movement in RLE proximally more than distally. Lab, Micro, Other Results Last Impressions Chest X-Ray 12/05/17 0600 Signed Impressions: Service Date/Time: Tuesday, December 05, 2017 04:28 - CONCLUSION: 1. Mild patchy opacity is now noted in the left lung base. This could represent early pneumonia. 2. Interval removal of nasogastric tube. Julian Gutierrez MD Abdomen X-Ray 12/03/17 0000 Signed Impressions: Service Date/Time: Sunday, December 03, 2017 10:38 - CONCLUSION: No significant small or large bowel loop dilation. Anurag Carrion MD Head CT 11/26/17 0000 Signed Impressions: Service Date/Time: Monday, November 27, 2017 04:18 - CONCLUSION: Decreased pneumocephalus, stable intracranial intra-axial extra-axial hemorrhage and left parietal edema, with postsurgical changes and midline shift. Ariel Nath MD Upper Extremity Ultrasound 11/25/17 0000 Signed Impressions: Service Date/Time: Saturday, November 25, 2017 18:56 - CONCLUSION: Positive for deep venous thrombosis bilateral extremities, right worse than left. Anurag Carrion MD Lower Extremity Ultrasound 11/25/17 0000 Signed Impressions: Service Date/Time: Saturday, November 25, 2017 17:50 - CONCLUSION: Negative for deep venous thrombosis bilateral lower extremity. Anurag Carrion MD Abdomen/Pelvis CT 11/21/17 0000 Signed Impressions: Service Date/Time: Tuesday, November 21, 2017 21:37 - CONCLUSION: 1. No evidence to indicate pancreatitis. 2. Multiple stones in the gallbladder. 3. Multiple bilateral renal calculi.. 4. No significant changes compared to the prior exam. Meir Donnelly MD GI Procedure 11/20/17 0000 Signed Impressions: Service Date/Time: Monday, November 20, 2017 16:40 - CONCLUSION: ERCP as above. Jose Echevarria MD Laboratory Tests Test 12/08/17 04:10 Blood Urea Nitrogen 29 MG/DL Creatinine 0.83 MG/DL Random Glucose 150 MG/DL Total Protein 6.2 GM/DL Albumin 1.7 GM/DL Calcium Level 9.1 MG/DL Alkaline Phosphatase 124 U/L Aspartate Amino Transf (AST/SGOT) 66 U/L Alanine Aminotransferase (ALT/SGPT) 94 U/L Total Bilirubin 0.3 MG/DL Sodium Level 152 MEQ/L Potassium Level 3.4 MEQ/L Chloride Level 120 MEQ/L Carbon Dioxide Level 26.1 MEQ/L Anion Gap 6 MEQ/L Estimat Glomerular Filtration Rate 69 ML/MIN Medical Decision Making Impression and Plan A: Large left posterior temporal lobe prior low but occipital lobe hemorrhagic stroke with associated moderate mass effect and midline shift. Chronic neck and back pain with intrathecal pump placement which was not refilled due to [facility] of [facility]. Likely is undergoing opiate withdrawal. Biliary obstruction with jaundice status post ERCP History of COPD Staph epidermidis bacteremia 2 with the urinary tract infection. Pt has since had negative BC. P: Continue with critical care now on CPAP. Continue to monitor Neuro exam improving alertness. Continue with rehab efforts. Zack Ramirez Dec 08, 2017 10:04 am
[2017-12-08] MEDS: ALTEPLASE RECOMBINANT 2 MG VIAL INTRACATH PRN (11:33)
--- NOTE | 2017-12-08 13:45 | HHI.CCPN ---
Subjective Remarks/Hospital Course 62-year-old female with a past medical history significant for chronic pain with morphine pump, fibromyalgia, celiac disease and anxiety presented initially to the hospital for evaluation of leg spasms. The patient reports that she woke up approximately 1 AM and "could not control her legs." Her daughter gave her a 30 mg tablet of morphine to help with her symptoms yet they persisted. She was admitted to [facility] floor for further evaluation where she became suddenly lethargic and weak on the right side. The CT of the head was done immediately and shows large posterior parietal lobe hemorrhagic stroke with brain edema. She was immediately intubated for an airway protection and started on hyperosmolar therapy. 11/22: Patient underwent Left parietal craniotomy for intracerebral hematoma evacuation; Left frontal gt hole placement for ventriculostomy by Dr. Womack. Seen in the ICU immediately postop. Profoundly hypotensive systolic blood pressure initially in the 50s. Stat bolus of LR was ordered by anesthesia. Levophed increased to 12 mcg/min with improvement in systolic blood pressure to 110s. We will place arterial line. Currently patient is under the influence of anesthesia, not moving any extremities 11/23: T-max 101.1. Continues to be febrile. Placing NG tube and Julian catheter. Right upper extremity without movement. Withdraws right lower externally. Spontaneous movement to left upper and lower extremity. Starting on tube feeding. 11/24: Tmax 101.1. Currently. 2 bowel movement overnight. Urine with Escherichia coli/staph epi in blood. Potassium phosphorus been replaced. Hypertonic saline held due to sodium 160+. Very arousable off sedation with ICP is controlled. 11/25: Continues to spike intermittent fevers. Tolerating tube feeding at goal. With persistent fevers we will consult infectious disease. ICPs are well controlled. Sodium remains at 163. 11/26: no significant changes. hyperosmolar therapy continues. peak pressures elevated today into the 40s, but plateau pressure 19, suggestive of a flow restriction. given albuterol neb and changed to PRVC mode from VCV with improvement in peak pressures. 11/27: T-max 101.5. Currently 100.9. Planned ventriculostomy removal today. Will discuss with neurosurgery initiation of of pharmacological treatment for bilateral upper extremity deep venous thrombosis. Tolerating tube feeds goal will be 55 cc an hour 11/28: Tmax 101.4. Currently afebrile. Currently on enoxaparin 40 mg subcutaneous daily. Will advance to full dose anticoagulation once okay with neurosurgery. Tolerating tube feeds at goal. 11/29: Tmax 101.1. Currently 99.9. Resting in bed in no distress. Tolerating tube feeds. 11/30: Tmax 101.5. Currently afebrile. Central line has been exchanged to a left IJ CVL. Tolerating tube feeds at goal. PSV trial ongoing. 12/01: Tmax 99.7. Currently 98.2.. Central line exchanged yesterday. Will attempt PSV trial today. Atelectasis. Okayed for tracheostomy per neurosurgery. We'll coordinate PEG tube placement as well possibly this . Will discuss with daughter. 12/02: On midazolam drip at 3 mg an hour. Plan for tracheostomy this AM. Hemodynamically stable. 12/03: Tmax 99. Currently afebrile. Currently on midazolam drip at 6 an hour. Status post percutaneous tracheostomy with #8 Shiley cuffed 12/02. Plan for PEG tube but EGD 12/04. Very small bowel movement yesterday. Subjective 12/04: Afebrile. Plan to OR today secondary to PEG tube placement." Anticoagulation on Hold. Midazolam increased to 7 mg an hour due to agitation. Stopped quetiapine yesterday due to daughter's request due to "headaches" in past 12/05: Continue weaning efforts. Start TFs again once PEG cleared. 12/06: Will start full anticoagulation for DVT. Risk of embolus and/or propagation exceeds risk of ICH. 12/07: Daughter understands and accepts risks of full anticoagulation after brain bleed. Presence of multiple DVTs requires treatment. 12/08: Tolerating lovenox full anticoagulation. Will switch to coumadin and evaluate for rehab or SNF transfer. Objective Vital Signs Date Time Temp Pulse Resp B/P (MAP) Pulse Ox O2 Delivery O2 Flow Rate FiO2 12/08/17 13:11 27 12/08/17 12:29 100 35 12/08/17 06:00 90 12/08/17 04:00 98.8 141/65 (90) Intake and Output 12/08/17 12/08/17 12/09/17 08:00 16:00 00:00 Intake Total 1114 ml Output Total 750 ml Balance 364 ml Result Diagram: 12/07/17 4925 12/08/17 0410 Imaging Last Impressions Abdomen X-Ray 12/03/17 0000 Signed Impressions: Service Date/Time: Sunday, December 03, 2017 10:38 - CONCLUSION: No significant small or large bowel loop dilation. Anurag Carrion MD Chest X-Ray 12/02/17 0000 Signed Impressions: Service Date/Time: Saturday, December 02, 2017 12:10 - CONCLUSION: 1. Tracheostomy in good position. Stable left IJ catheter. 2. Otherwise, no significant interval change. 3. Persistent patchy bilateral lower lung zone airspace disease. 4. Persistent prominence of the right paratracheal region. David Bacon MD Head CT 11/26/17 0000 Signed Impressions: Service Date/Time: Monday, November 27, 2017 04:18 - CONCLUSION: Decreased pneumocephalus, stable intracranial intra-axial extra-axial hemorrhage and left parietal edema, with postsurgical changes and midline shift. Ariel Nath MD Upper Extremity Ultrasound 11/25/17 0000 Signed Impressions: Service Date/Time: Saturday, November 25, 2017 18:56 - CONCLUSION: Positive for deep venous thrombosis bilateral extremities, right worse than left. Anurag Carrion MD Lower Extremity Ultrasound 11/25/17 0000 Signed Impressions: Service Date/Time: Saturday, November 25, 2017 17:50 - CONCLUSION: Negative for deep venous thrombosis bilateral lower extremity. Anurag Carrion MD Abdomen/Pelvis CT 11/21/17 0000 Signed Impressions: Service Date/Time: Tuesday, November 21, 2017 21:37 - CONCLUSION: 1. No evidence to indicate pancreatitis. 2. Multiple stones in the gallbladder. 3. Multiple bilateral renal calculi.. 4. No significant changes compared to the prior exam. Meir Donnelly MD GI Procedure 11/20/17 0000 Signed Impressions: Service Date/Time: Monday, November 20, 2017 16:40 - CONCLUSION: ERCP as above. Jose Echevarria MD Objective Remarks GENERAL: 64-year-old female currently resting in bed on ventilator via tracheostomy, tolerates SBTs. SKIN: Warm and dry. HEAD: Circumferential craniotomy dressing in place and left frontal EVD in place EYES: No scleral icterus. No injection or drainage. Pupils bilaterally 2 mm reactive ENT: Right NG tube. NECK: Supple, trachea midline. No JVD. Left IJ CVL is clean dry and intact as well. Tracheostomy site is clean dry and intact without bleeding CARDIOVASCULAR: Tachycardic, RR. Without murmurs, gallops, or rubs. No JVD. RESPIRATORY: Breath sounds equal bilaterally. No accessory muscle use. No wheezing, good air entry. Comfortable. GASTROINTESTINAL: Abdomen soft, non-tender, nondistended. Subcutaneous morphine pump in the right upper quadrant. MUSCULOSKELETAL: Bilateral 1+ upper extremity edema extending to hands. Well perfused. NEURO EXAM: Patient is ventilated lightly sedated. pupils equal, round, reactive. No movement right upper extremity. Withdraws to pain right lower extremity. Spontaneous moving left upper and lower extremity. Nods head to simple questions appropriately. Date of Insertion: Nov 30, 2017 Line: Central Venous Catheter Side: Left Location: Internal, Jugular A/P Assessment and Plan NEURO/PSYCH: Large acute intraparenchymal hemorrhage involving the left parietal lobe Midline shift to the right by 9 mm Subarachnoid hemorrhage and cerebral edema on the left side Depression/anxiety Chronic pain on Morphine pump Chronic opioid use [place] History of C-spine fusion Status post left parietal craniotomy for intracerebral hematoma evacuation, Left frontal gt hole placement for ventriculostomy by Dr. Womack. Left ventric removed 11/27 - 3% sodium chloride infusion, target Na 150-155 currently on hold is currently 153 -Currently on levetiracetam 500 mg IV every 12 hours -Propofol switched to midazolam drip due to hypotension currently at 7 mg an hour Holding buspirone 30 mg twice daily and venlafaxine 50 mg twice daily for depression/anxiety. Resume when clinically indicated Holding acetaminophen/hydrocodone 325/7.51 tab every 6 hours as needed pain Holding scheduled morphine sulfate 30 mg every 12 hours Morphine liquid 10 mg every 6 hours scheduled with 1-2 mg every 3 hours as needed pain 1 through 10 Acetaminophen 650 mg every 6 hours as needed for fever Started quetiapine 50 mg twice a day in attempt to wean off midazolam drip however daughter states adverse reaction with headaches hence discontinued Venlafaxine 50 mill grams twice a day and trazodone 50 mg at night/home medication RESP: Acute respiratory failure Ongoing tobaccoism COPD - Intubated for an airway protection Status post percutaneous tracheostomy 12/02 #8 Shiley [facility] 14/550/10/20/40 PSV trials daily as tolerated Ventilator bundle Albuterol/ipratropium aerosols every 6 hours with albuterol aerosols every 2 hours as needed dyspnea Tobacco cessation booklet provided when appropriate CVS: Hypotension/shock Mild lactic acidosis History of hypertension -Currently off norepinephrine target map above 65 by calculation CPP 50-70. - 3% saline currently on hold with sodium currently > 150 - Hold metoprolol and lisinopril while on vasopressors/borderline mean arterial pressure GI: Acute pancreatitis - resolved Opioid-induced constipation Cholelithiasis History of celiac disease 11/21/17 s/p ERCP with sphincterotomy and balloon extraction, finding choledocholithiasis. increase 0.8. tumor markers WNL. lipase WNL. WBC significant increase today, appears diaphoretic. tachycardic. GI signed off Resumed tube feedings with vital 1.5 goal 55 cc an hour per nutrition's recommendations with PEG tube plan Monday Lansoprazole 30 mg daily for GI prophylaxis. Continue docusate sodium 100 mg twice daily and senna 8.6 mg twice daily. Patient is on polyethylene glycol 17 g twice daily at home for constipation which is been continued along with lactulose 30 cc 4 times a day 1 dose Methylnaltrexone 12 mg subcutaneous 1. : Julian catheter for accurate I's and O's in a critically ill patient FEN/RENAL: Nephrolithiasis Hypernatremia Hyper-magnesium - Monitor renal function closely, ? Julian Free water 300 cc every 8 hours ID: E. coli UTI Coag negative staph bacteremia hold ceftriaxone per infectious disease Pertinent cultures 11/26 -CSF -no growth 11/25 -blood cultures 2 -no growth 11/19 -UA -pansensitive E. coli 11/20 -blood cultures 2 -coag negative staph/staph epi pansensitive 11/22 -blood cultures 2 -no growth to date Appreciate infectious disease for further antibiotic coverage HEME: Leukocytosis Normocytic anemia Sickle cell trait? Right subclavian/axillary and brachial DVT. Left cephalic superficial thrombus/ brachial thrombus - Leukocytosis most likely stress related - Monitor CBC daily. Follow trend Upper extremity also revealed bilateral superficial and deep venous thrombus as above - Start full anticoagulation 12/06 with lovenox 70 mg bid DVT GI prophylaxis - Teds SCDs Lovenox covers DVT px. Continue post procedure. - Iansoprazole 30 mg by tube daily Access - Left IJ CVL day 7 placed 11/30 Overall impression: Slow progress. Unable to wean from ventilator. May need LTAC. Will evaluate for rehab placement. Reyes Shelton MD Dec 08, 2017 13:45
[2017-12-08 16:00] LABS: INTERNATIONAL NORMALIZED RATIO 1.1 RATIO; PROTHROMBIN TIME - PATIENT 10.8 SEC (9.8-11.6)
[2017-12-08] MEDS: WARFARIN SOD 5 MG TAB PO SCH (16:23)
[2017-12-08] MEDS: traZODone HCL 50 MG TAB PO SCH (22:07)
[2017-12-09] VITALS (18 sets, daily range): BP systolic 91–183; BP diastolic 51–83; PULSE 77–112; RESP 14–28; TEMP 98.3–99.3; O2SAT 93–100
[2017-12-09] MEDS: ENOXAPARIN SODIUM 80 MG/0.8 ML SYRINGE SQ SCH ×2 (00:41→13:55)
[2017-12-09] MEDS: MORPHINE SULFATE ORAL SOLN 10 MG/0.5 ML SYRINGE NG SCH ×6 (00:41→21:06)
[2017-12-09 04:33] LABS: INTERNATIONAL NORMALIZED RATIO 1.1 RATIO; PROTHROMBIN TIME - PATIENT 10.9 SEC (9.8-11.6)
[2017-12-09] MEDS: ARTIFICIAL TEARS OPTH SOLN 15 ML BTL EACH EYE SCH ×3 (05:05→21:40)
[2017-12-09] MEDS: LACTULOSE SYRUP 20 GM/30 ML CUP NG SCH ×5 (05:05→23:52)
[2017-12-09] MEDS: FREE WATER G-TUBE SCH ×3 (05:05→21:40)
[2017-12-09] MEDS: VENLAFAXINE HCL 25 MG TAB PO SCH ×2 (05:05→16:06)
[2017-12-09] MEDS: LANSOPRAZOLE SOLUTAB 30 MG TAB NG SCH (08:54)
[2017-12-09] MEDS: levETIRAcetam 500 MG/5 ML UDC NG SCH ×2 (08:55→21:06)
[2017-12-09] MEDS: NYSTATIN SUSP 500,000 U/5 ML CUP SWISH-SWAL SCH ×4 (08:55→21:06)
[2017-12-09] MEDS: SENNOSIDES SYRUP 8.8 MG/5 ML CUP NG SCH ×2 (08:56→21:00)
[2017-12-09] MEDS: POLYETHYLENE GLYCOL 17 GM PKG NG SCH ×2 (08:56→21:00)
[2017-12-09] MEDS: DOCUSATE SODIUM 100 MG/10 ML UDC PO SCH ×2 (08:56→21:06)
[2017-12-09] MEDS: SODIUM CHLORIDE 0.9% FLUSH 10 ML FLUSH IV FLUSH SCH ×3 (08:56→21:07)
[2017-12-09] MEDS: TRIAMCINOLONE ACETONIDE 0.1% CREAM 15 GM TOPICAL SCH ×2 (09:00→21:40)
--- NOTE | 2017-12-09 15:54 | HHI.CCPN ---
Subjective Remarks/Hospital Course 62-year-old female with a past medical history significant for chronic pain with morphine pump, fibromyalgia, celiac disease and anxiety presented initially to the hospital for evaluation of leg spasms. The patient reports that she woke up approximately 1 AM and "could not control her legs." Her daughter gave her a 30 mg tablet of morphine to help with her symptoms yet they persisted. She was admitted to [facility] floor for further evaluation where she became suddenly lethargic and weak on the right side. The CT of the head was done immediately and shows large posterior parietal lobe hemorrhagic stroke with brain edema. She was immediately intubated for an airway protection and started on hyperosmolar therapy. 11/22: Patient underwent Left parietal craniotomy for intracerebral hematoma evacuation; Left frontal gt hole placement for ventriculostomy by Dr. Womack. Seen in the ICU immediately postop. Profoundly hypotensive systolic blood pressure initially in the 50s. Stat bolus of LR was ordered by anesthesia. Levophed increased to 12 mcg/min with improvement in systolic blood pressure to 110s. We will place arterial line. Currently patient is under the influence of anesthesia, not moving any extremities 11/23: T-max 101.1. Continues to be febrile. Placing NG tube and Julian catheter. Right upper extremity without movement. Withdraws right lower externally. Spontaneous movement to left upper and lower extremity. Starting on tube feeding. 11/24: Tmax 101.1. Currently. 2 bowel movement overnight. Urine with Escherichia coli/staph epi in blood. Potassium phosphorus been replaced. Hypertonic saline held due to sodium 160+. Very arousable off sedation with ICP is controlled. 11/25: Continues to spike intermittent fevers. Tolerating tube feeding at goal. With persistent fevers we will consult infectious disease. ICPs are well controlled. Sodium remains at 163. 11/26: no significant changes. hyperosmolar therapy continues. peak pressures elevated today into the 40s, but plateau pressure 19, suggestive of a flow restriction. given albuterol neb and changed to PRVC mode from VCV with improvement in peak pressures. 11/27: T-max 101.5. Currently 100.9. Planned ventriculostomy removal today. Will discuss with neurosurgery initiation of of pharmacological treatment for bilateral upper extremity deep venous thrombosis. Tolerating tube feeds goal will be 55 cc an hour 11/28: Tmax 101.4. Currently afebrile. Currently on enoxaparin 40 mg subcutaneous daily. Will advance to full dose anticoagulation once okay with neurosurgery. Tolerating tube feeds at goal. 11/29: Tmax 101.1. Currently 99.9. Resting in bed in no distress. Tolerating tube feeds. 11/30: Tmax 101.5. Currently afebrile. Central line has been exchanged to a left IJ CVL. Tolerating tube feeds at goal. PSV trial ongoing. 12/01: Tmax 99.7. Currently 98.2.. Central line exchanged yesterday. Will attempt PSV trial today. Atelectasis. Okayed for tracheostomy per neurosurgery. We'll coordinate PEG tube placement as well possibly this . Will discuss with daughter. 12/02: On midazolam drip at 3 mg an hour. Plan for tracheostomy this AM. Hemodynamically stable. 12/03: Tmax 99. Currently afebrile. Currently on midazolam drip at 6 an hour. Status post percutaneous tracheostomy with #8 Shiley cuffed 12/02. Plan for PEG tube but EGD 12/04. Very small bowel movement yesterday. Subjective 12/04: Afebrile. Plan to OR today secondary to PEG tube placement." Anticoagulation on Hold. Midazolam increased to 7 mg an hour due to agitation. Stopped quetiapine yesterday due to daughter's request due to "headaches" in past 12/05: Continue weaning efforts. Start TFs again once PEG cleared. 12/06: Will start full anticoagulation for DVT. Risk of embolus and/or propagation exceeds risk of ICH. 12/07: Daughter understands and accepts risks of full anticoagulation after brain bleed. Presence of multiple DVTs requires treatment. 12/08: Tolerating lovenox full anticoagulation. Will switch to coumadin and evaluate for rehab or SNF transfer. 12/09: Some interaction with PT/OT today, assessing for rehab potential. Converting to coumadin. Objective Vital Signs Date Time Temp Pulse Resp B/P (MAP) Pulse Ox O2 Delivery O2 Flow Rate FiO2 12/09/17 14:00 97 12/09/17 13:24 100 35 12/09/17 12:00 99.3 27 183/79 (113) Intake and Output 12/09/17 12/09/17 12/10/17 08:00 16:00 00:00 Intake Total 1135 ml Output Total 800 ml Balance 335 ml Result Diagram: 12/07/17 0435 12/08/17 0410 Imaging Last Impressions Abdomen X-Ray 12/03/17 0000 Signed Impressions: Service Date/Time: Sunday, December 03, 2017 10:38 - CONCLUSION: No significant small or large bowel loop dilation. Anurag Carrion MD Chest X-Ray 12/02/17 0000 Signed Impressions: Service Date/Time: Saturday, December 02, 2017 12:10 - CONCLUSION: 1. Tracheostomy in good position. Stable left IJ catheter. 2. Otherwise, no significant interval change. 3. Persistent patchy bilateral lower lung zone airspace disease. 4. Persistent prominence of the right paratracheal region. David Bacon MD Head CT 11/26/17 0000 Signed Impressions: Service Date/Time: Monday, November 27, 2017 04:18 - CONCLUSION: Decreased pneumocephalus, stable intracranial intra-axial extra-axial hemorrhage and left parietal edema, with postsurgical changes and midline shift. Ariel Nath MD Upper Extremity Ultrasound 11/25/17 0000 Signed Impressions: Service Date/Time: Saturday, November 25, 2017 18:56 - CONCLUSION: Positive for deep venous thrombosis bilateral extremities, right worse than left. Anurag Carrion MD Lower Extremity Ultrasound 11/25/17 0000 Signed Impressions: Service Date/Time: Saturday, November 25, 2017 17:50 - CONCLUSION: Negative for deep venous thrombosis bilateral lower extremity. Anurag Carrion MD Abdomen/Pelvis CT 11/21/17 0000 Signed Impressions: Service Date/Time: Tuesday, November 21, 2017 21:37 - CONCLUSION: 1. No evidence to indicate pancreatitis. 2. Multiple stones in the gallbladder. 3. Multiple bilateral renal calculi.. 4. No significant changes compared to the prior exam. Meir Donnelly MD GI Procedure 11/20/17 0000 Signed Impressions: Service Date/Time: Monday, November 20, 2017 16:40 - CONCLUSION: ERCP as above. Jose Echevarria MD Objective Remarks GENERAL: 64-year-old female currently resting in bed on ventilator via tracheostomy, tolerates SBTs. SKIN: Warm and dry. HEAD: Circumferential craniotomy dressing in place and left frontal EVD in place EYES: No scleral icterus. No injection or drainage. Pupils bilaterally 2 mm reactive ENT: Right NG tube. NECK: Supple, trachea midline. No JVD. Left IJ CVL is clean dry and intact as well. Tracheostomy site is clean dry and intact without bleeding CARDIOVASCULAR: Tachycardic, RR. Without murmurs, gallops, or rubs. No JVD. RESPIRATORY: Breath sounds equal bilaterally. No accessory muscle use. No wheezing, good air entry. Comfortable. GASTROINTESTINAL: Abdomen soft, non-tender, nondistended. Subcutaneous morphine pump in the right upper quadrant. MUSCULOSKELETAL: Bilateral 1+ upper extremity edema extending to hands. Well perfused. NEURO EXAM: Pupils equal, round, reactive. No movement right upper extremity. Withdraws to pain right lower extremity. Spontaneous moving left upper and lower extremity. Nods head to simple questions appropriately. More active in general. Date of Insertion: Nov 30, 2017 Line: Central Venous Catheter Side: Left Location: Internal, Jugular A/P Assessment and Plan NEURO/PSYCH: Large acute intraparenchymal hemorrhage involving the left parietal lobe Midline shift to the right by 9 mm Subarachnoid hemorrhage and cerebral edema on the left side Depression/anxiety Chronic pain on Morphine pump Chronic opioid use [place] History of C-spine fusion Status post left parietal craniotomy for intracerebral hematoma evacuation, Left frontal gt hole placement for ventriculostomy by Dr. Womack. Left ventric removed / - 3% sodium chloride infusion, target Na 150-155 currently on hold is currently 153 -Currently on levetiracetam 500 mg IV every 12 hours -Propofol switched to midazolam drip due to hypotension currently at 7 mg an hour Holding buspirone 30 mg twice daily and venlafaxine 50 mg twice daily for depression/anxiety. Resume when clinically indicated Holding acetaminophen/hydrocodone 325/7.51 tab every 6 hours as needed pain Holding scheduled morphine sulfate 30 mg every 12 hours Morphine liquid 10 mg every 6 hours scheduled with 1-2 mg every 3 hours as needed pain 1 through 10 Acetaminophen 650 mg every 6 hours as needed for fever Started quetiapine 50 mg twice a day in attempt to wean off midazolam drip however daughter states adverse reaction with headaches hence discontinued Venlafaxine 50 mill grams twice a day and trazodone 50 mg at night/home medication RESP: Acute respiratory failure Ongoing tobaccoism COPD - Trach for an airway protection Status post percutaneous tracheostomy 12/02 #8 [place] [facility] 14/550/10/20/39 PSV trials daily as tolerated Ventilator bundle Albuterol/ipratropium aerosols every 6 hours with albuterol aerosols every 2 hours as needed dyspnea Tobacco cessation booklet provided when appropriate CVS: Hypotension/shock Mild lactic acidosis History of hypertension -Currently off norepinephrine target map above 65 by calculation CPP 50-70. - 3% saline currently on hold with sodium currently > 150 - Hold metoprolol and lisinopril while borderline mean arterial pressure GI: Acute pancreatitis - resolved Opioid-induced constipation Cholelithiasis History of celiac disease 11/21/17 s/p ERCP with sphincterotomy and balloon extraction, finding choledocholithiasis. increase 0.8. tumor markers WNL. lipase WNL. WBC significant increase today, appears diaphoretic. tachycardic. GI signed off Resumed tube feedings with vital 1.5 goal 55 cc an hour per nutrition's recommendations with PEG tube plan Monday Lansoprazole 30 mg daily for GI prophylaxis. Continue docusate sodium 100 mg twice daily and senna 8.6 mg twice daily. Patient is on polyethylene glycol 17 g twice daily at home for constipation which is been continued along with lactulose 30 cc 4 times a day 1 dose Methylnaltrexone 12 mg subcutaneous 1. : Julian catheter for accurate I's and O's in a critically ill patient FEN/RENAL: Nephrolithiasis Hypernatremia Hyper-magnesium - Monitor renal function closely, ? Julian Free water 300 cc every 8 hours ID: E. coli UTI Coag negative staph bacteremia hold ceftriaxone per infectious disease Pertinent cultures 11/26 -CSF -no growth 11/25 -blood cultures 2 -no growth 11/19 -UA -pansensitive E. coli 11/20 -blood cultures 2 -coag negative staph/staph epi pansensitive 11/22 -blood cultures 2 -no growth to date Appreciate infectious disease for further antibiotic coverage HEME: Leukocytosis Normocytic anemia Sickle cell trait? Right subclavian/axillary and brachial DVT. Left cephalic superficial thrombus/ brachial thrombus - Leukocytosis most likely stress related - Monitor CBC daily. Follow trend Upper extremity also revealed bilateral superficial and deep venous thrombus as above - Start full anticoagulation 12/06 with lovenox 70 mg bid, convert to coumadin, d/c lovenox when therapeutic DVT GI prophylaxis - Teds SCDs Lovenox covers DVT px. Continue post procedure. - Iansoprazole 30 mg by tube daily Access - Left IJ CVL day 8 placed 11/30 Overall impression: Slow progress. Unable to wean from ventilator. May need LTAC. Evaluate for rehab placement. Reyes Shelton MD Dec 09, 2017 15:54
[2017-12-09] MEDS: WARFARIN SOD 5 MG TAB PO SCH (16:06)
[2017-12-09] MEDS: DEXMEDETOMIDINE INJ 200 MCG in SODIUM CHLORIDE 0.9% INJ 50 ML IV PRN (16:08)
[2017-12-09] MEDS: traZODone HCL 50 MG TAB PO SCH (21:06)
[2017-12-10] VITALS (15 sets, daily range): BP systolic 110–144; BP diastolic 56–72; PULSE 72–94; RESP 14–24; TEMP 97.4–98.8; O2SAT 92–100
[2017-12-10] MEDS: MORPHINE SULFATE ORAL SOLN 10 MG/0.5 ML SYRINGE NG SCH ×6 (00:14→20:51)
[2017-12-10] MEDS: ENOXAPARIN SODIUM 80 MG/0.8 ML SYRINGE SQ SCH ×2 (03:07→13:16)
[2017-12-10] MEDS: LACTULOSE SYRUP 20 GM/30 ML CUP NG SCH ×3 (06:00→17:09)
[2017-12-10] MEDS: VENLAFAXINE HCL 25 MG TAB PO SCH ×2 (06:08→17:17)
[2017-12-10] MEDS: ARTIFICIAL TEARS OPTH SOLN 15 ML BTL EACH EYE SCH ×3 (06:09→20:52)
[2017-12-10] MEDS: FREE WATER G-TUBE SCH ×3 (06:09→22:44)
[2017-12-10] MEDS: POLYETHYLENE GLYCOL 17 GM PKG NG SCH ×2 (08:11→20:52)
[2017-12-10] MEDS: DOCUSATE SODIUM 100 MG/10 ML UDC PO SCH ×2 (08:12→20:51)
[2017-12-10] MEDS: SENNOSIDES SYRUP 8.8 MG/5 ML CUP NG SCH ×2 (08:12→20:52)
[2017-12-10] MEDS: SODIUM CHLORIDE 0.9% FLUSH 10 ML FLUSH IV FLUSH SCH ×3 (09:35→20:52)
[2017-12-10] MEDS: LANSOPRAZOLE SOLUTAB 30 MG TAB NG SCH (09:35)
[2017-12-10] MEDS: NYSTATIN SUSP 500,000 U/5 ML CUP SWISH-SWAL SCH ×4 (09:35→20:51)
[2017-12-10] MEDS: levETIRAcetam 500 MG/5 ML UDC NG SCH ×2 (09:35→20:51)
[2017-12-10] MEDS: TRIAMCINOLONE ACETONIDE 0.1% CREAM 15 GM TOPICAL SCH ×2 (09:36→20:52)
[2017-12-10 09:39] LABS: INTERNATIONAL NORMALIZED RATIO 1.1 RATIO; PROTHROMBIN TIME - PATIENT 10.7 SEC (9.8-11.6)
[2017-12-10] MEDS: DEXMEDETOMIDINE INJ 200 MCG in SODIUM CHLORIDE 0.9% INJ 50 ML IV PRN (15:38)
--- NOTE | 2017-12-10 16:53 | HHI.CCPN ---
Subjective Remarks/Hospital Course 62-year-old female with a past medical history significant for chronic pain with morphine pump, fibromyalgia, celiac disease and anxiety presented initially to the hospital for evaluation of leg spasms. The patient reports that she woke up approximately 1 AM and "could not control her legs." Her daughter gave her a 30 mg tablet of morphine to help with her symptoms yet they persisted. She was admitted to [facility] floor for further evaluation where she became suddenly lethargic and weak on the right side. The CT of the head was done immediately and shows large posterior parietal lobe hemorrhagic stroke with brain edema. She was immediately intubated for an airway protection and started on hyperosmolar therapy. 11/22: Patient underwent Left parietal craniotomy for intracerebral hematoma evacuation; Left frontal gt hole placement for ventriculostomy by Dr. Womack. Seen in the ICU immediately postop. Profoundly hypotensive systolic blood pressure initially in the 50s. Stat bolus of LR was ordered by anesthesia. Levophed increased to 12 mcg/min with improvement in systolic blood pressure to 110s. We will place arterial line. Currently patient is under the influence of anesthesia, not moving any extremities 11/23: T-max 101.1. Continues to be febrile. Placing NG tube and Julian catheter. Right upper extremity without movement. Withdraws right lower externally. Spontaneous movement to left upper and lower extremity. Starting on tube feeding. 11/24: Tmax 101.1. Currently. 2 bowel movement overnight. Urine with Escherichia coli/staph epi in blood. Potassium phosphorus been replaced. Hypertonic saline held due to sodium 160+. Very arousable off sedation with ICP is controlled. 11/25: Continues to spike intermittent fevers. Tolerating tube feeding at goal. With persistent fevers we will consult infectious disease. ICPs are well controlled. Sodium remains at 163. 11/26: no significant changes. hyperosmolar therapy continues. peak pressures elevated today into the 40s, but plateau pressure 19, suggestive of a flow restriction. given albuterol neb and changed to PRVC mode from VCV with improvement in peak pressures. 11/27: T-max 101.5. Currently 100.9. Planned ventriculostomy removal today. Will discuss with neurosurgery initiation of of pharmacological treatment for bilateral upper extremity deep venous thrombosis. Tolerating tube feeds goal will be 55 cc an hour 11/28: Tmax 101.4. Currently afebrile. Currently on enoxaparin 40 mg subcutaneous daily. Will advance to full dose anticoagulation once okay with neurosurgery. Tolerating tube feeds at goal. 11/29: Tmax 101.1. Currently 99.9. Resting in bed in no distress. Tolerating tube feeds. 11/30: Tmax 101.5. Currently afebrile. Central line has been exchanged to a left IJ CVL. Tolerating tube feeds at goal. PSV trial ongoing. 12/01: Tmax 99.7. Currently 98.2.. Central line exchanged yesterday. Will attempt PSV trial today. Atelectasis. Okayed for tracheostomy per neurosurgery. We'll coordinate PEG tube placement as well possibly this . Will discuss with daughter. 12/02: On midazolam drip at 3 mg an hour. Plan for tracheostomy this AM. Hemodynamically stable. 12/03: Tmax 99. Currently afebrile. Currently on midazolam drip at 6 an hour. Status post percutaneous tracheostomy with #8 Shiley cuffed 12/02. Plan for PEG tube but EGD 12/04. Very small bowel movement yesterday. Subjective 12/04: Afebrile. Plan to OR today secondary to PEG tube placement." Anticoagulation on Hold. Midazolam increased to 7 mg an hour due to agitation. Stopped quetiapine yesterday due to daughter's request due to "headaches" in past 12/05: Continue weaning efforts. Start TFs again once PEG cleared. 12/06: Will start full anticoagulation for DVT. Risk of embolus and/or propagation exceeds risk of ICH. 12/07: Daughter understands and accepts risks of full anticoagulation after brain bleed. Presence of multiple DVTs requires treatment. 12/08: Tolerating lovenox full anticoagulation. Will switch to coumadin and evaluate for rehab or SNF transfer. 12/09: Some interaction with PT/OT today, assessing for rehab potential. Converting to coumadin. 12/10: More active today. INR not therapeutic yet, continue lovenox. Objective Vital Signs Date Time Temp Pulse Resp B/P (MAP) Pulse Ox O2 Delivery O2 Flow Rate FiO2 12/10/17 14:21 19 12/10/17 07:30 97 T-piece 6.00 28 12/10/17 06:00 78 12/10/17 04:00 98.8 117/56 (76) Intake and Output 12/10/17 12/10/17 12/11/17 08:00 16:00 00:00 Intake Total 1205 ml Output Total 952 ml Balance 253 ml Result Diagram: 12/07/17 0435 12/08/17 0410 Imaging Last Impressions Abdomen X-Ray 12/03/17 0000 Signed Impressions: Service Date/Time: Sunday, December 03, 2017 10:38 - CONCLUSION: No significant small or large bowel loop dilation. Anurag Carrion MD Chest X-Ray 12/02/17 0000 Signed Impressions: Service Date/Time: Saturday, December 02, 2017 12:10 - CONCLUSION: 1. Tracheostomy in good position. Stable left IJ catheter. 2. Otherwise, no significant interval change. 3. Persistent patchy bilateral lower lung zone airspace disease. 4. Persistent prominence of the right paratracheal region. David Bacon MD Head CT 11/26/17 0000 Signed Impressions: Service Date/Time: Monday, November 27, 2017 04:18 - CONCLUSION: Decreased pneumocephalus, stable intracranial intra-axial extra-axial hemorrhage and left parietal edema, with postsurgical changes and midline shift. Ariel Nath MD Upper Extremity Ultrasound 11/25/17 0000 Signed Impressions: Service Date/Time: Saturday, November 25, 2017 18:56 - CONCLUSION: Positive for deep venous thrombosis bilateral extremities, right worse than left. Anurag Carrion MD Lower Extremity Ultrasound 11/25/17 0000 Signed Impressions: Service Date/Time: Saturday, November 25, 2017 17:50 - CONCLUSION: Negative for deep venous thrombosis bilateral lower extremity. Anurag Carrion MD Abdomen/Pelvis CT 11/21/17 0000 Signed Impressions: Service Date/Time: Tuesday, November 21, 2017 21:37 - CONCLUSION: 1. No evidence to indicate pancreatitis. 2. Multiple stones in the gallbladder. 3. Multiple bilateral renal calculi.. 4. No significant changes compared to the prior exam. Meir Donnelly MD GI Procedure 11/20/17 0000 Signed Impressions: Service Date/Time: Monday, November 20, 2017 16:40 - CONCLUSION: ERCP as above. Jose Echevarria MD Objective Remarks GENERAL: 64-year-old female currently resting in bed on ventilator via tracheostomy, tolerates SBTs. SKIN: Warm and dry. HEAD: Circumferential craniotomy dressing in place and left frontal EVD in place EYES: No scleral icterus. No injection or drainage. Pupils bilaterally 2 mm reactive ENT: Right NG tube. NECK: Supple, trachea midline. No JVD. Left IJ CVL is clean dry and intact as well. Tracheostomy site is clean dry and intact without bleeding CARDIOVASCULAR: Tachycardic, RR. Without murmurs, gallops, or rubs. No JVD. RESPIRATORY: Breath sounds equal bilaterally. No accessory muscle use. No wheezing, good air entry. Comfortable. GASTROINTESTINAL: Abdomen soft, non-tender, nondistended. Subcutaneous morphine pump in the right upper quadrant. MUSCULOSKELETAL: Bilateral 1+ upper extremity edema extending to hands. Well perfused. NEURO EXAM: Pupils equal, round, reactive. No movement right upper extremity. Withdraws to pain right lower extremity. Spontaneous moving left upper and lower extremity. Nods head to simple questions appropriately. More active in general. Date of Insertion: Nov 30, 2017 Line: Central Venous Catheter Side: Left Location: Internal, Jugular A/P Assessment and Plan NEURO/PSYCH: Large acute intraparenchymal hemorrhage involving the left parietal lobe Midline shift to the right by 9 mm Subarachnoid hemorrhage and cerebral edema on the left side Depression/anxiety Chronic pain on Morphine pump Chronic opioid use [place] History of C-spine fusion Status post left parietal craniotomy for intracerebral hematoma evacuation, Left frontal gt hole placement for ventriculostomy by Dr. Womack. Left ventric removed 11/27 - 3% sodium chloride infusion, target Na 150-155 currently on hold is currently 153 -Currently on levetiracetam 500 mg IV every 12 hours -Propofol switched to midazolam drip due to hypotension currently at 7 mg an hour Holding buspirone 30 mg twice daily and venlafaxine 50 mg twice daily for depression/anxiety. Resume when clinically indicated Holding acetaminophen/hydrocodone 325/7.51 tab every 6 hours as needed pain Holding scheduled morphine sulfate 30 mg every 12 hours Morphine liquid 10 mg every 6 hours scheduled with 1-2 mg every 3 hours as needed pain 1 through 10 Acetaminophen 650 mg every 6 hours as needed for fever Started quetiapine 50 mg twice a day in attempt to wean off midazolam drip however daughter states adverse reaction with headaches hence discontinued Venlafaxine 50 mill grams twice a day and trazodone 50 mg at night/home medication RESP: Acute respiratory failure Ongoing tobaccoism COPD - Trach for an airway protection Status post percutaneous tracheostomy 12/02 #8 Malachi [facility] 14/550/10/20/39 PSV trials daily as tolerated Ventilator bundle Albuterol/ipratropium aerosols every 6 hours with albuterol aerosols every 2 hours as needed dyspnea Tobacco cessation booklet provided when appropriate Working to T-piece trials. CVS: Hypotension/shock Mild lactic acidosis History of hypertension -Currently off norepinephrine target map above 65 by calculation CPP 50-70. - 3% saline currently on hold with sodium currently > 150 - Hold metoprolol and lisinopril while borderline mean arterial pressure GI: Acute pancreatitis - resolved Opioid-induced constipation Cholelithiasis History of celiac disease 11/21/17 s/p ERCP with sphincterotomy and balloon extraction, finding choledocholithiasis. increase 0.8. tumor markers WNL. lipase WNL. WBC significant increase today, appears diaphoretic. tachycardic. GI signed off Resumed tube feedings with vital 1.5 goal 55 cc an hour per nutrition's recommendations with PEG tube plan Monday Lansoprazole 30 mg daily for GI prophylaxis. Continue docusate sodium 100 mg twice daily and senna 8.6 mg twice daily. Patient is on polyethylene glycol 17 g twice daily at home for constipation which is been continued along with lactulose 30 cc 4 times a day 1 dose Methylnaltrexone 12 mg subcutaneous 1. : Julian catheter for accurate I's and O's in a critically ill patient FEN/RENAL: Nephrolithiasis Hypernatremia Hyper-magnesium - Monitor renal function closely, ? Julian Free water 300 cc every 8 hours ID: E. coli UTI Coag negative staph bacteremia hold ceftriaxone per infectious disease Pertinent cultures 11/26 -CSF -no growth 11/25 -blood cultures 2 -no growth 11/19 -UA -pansensitive E. coli 11/20 -blood cultures 2 -coag negative staph/staph epi pansensitive 11/22 -blood cultures 2 -no growth to date Appreciate infectious disease for further antibiotic coverage HEME: Leukocytosis Normocytic anemia Sickle cell trait? Right subclavian/axillary and brachial DVT. Left cephalic superficial thrombus/ brachial thrombus - Leukocytosis most likely stress related - Monitor CBC daily. Follow trend Upper extremity also revealed bilateral superficial and deep venous thrombus as above - Start full anticoagulation 12/06 with lovenox 70 mg bid, convert to coumadin, d/c lovenox when therapeutic DVT GI prophylaxis - Teds SCDs Lovenox covers DVT px. Continue post procedure. - Iansoprazole 30 mg by tube daily Access - Left IJ CVL day 8 placed 11/30 Overall impression: Slow progress. Unable to wean from ventilator. May need LTAC. Evaluate for rehab placement. Reyes Shelton MD Dec 10, 2017 16:53
[2017-12-10] MEDS: WARFARIN SOD 5 MG TAB PO SCH (17:17)
[2017-12-10] MEDS: traZODone HCL 50 MG TAB PO SCH (20:51)
[2017-12-11] VITALS (13 sets, daily range): BP systolic 90–129; BP diastolic 38–74; PULSE 74–114; RESP 16–21; TEMP 97.7–98.5; O2SAT 100
[2017-12-11] MEDS: MORPHINE SULFATE ORAL SOLN 10 MG/0.5 ML SYRINGE NG SCH ×7 (00:30→23:51)
[2017-12-11] MEDS: LACTULOSE SYRUP 20 GM/30 ML CUP NG SCH ×5 (00:30→23:51)
[2017-12-11] MEDS: ENOXAPARIN SODIUM 80 MG/0.8 ML SYRINGE SQ SCH ×2 (02:10→13:58)
[2017-12-11] MEDS: VENLAFAXINE HCL 25 MG TAB PO SCH ×2 (03:30→16:08)
[2017-12-11] MEDS: FREE WATER G-TUBE SCH ×3 (06:00→21:04)
[2017-12-11] MEDS: ARTIFICIAL TEARS OPTH SOLN 15 ML BTL EACH EYE SCH ×3 (06:00→21:04)
[2017-12-11 06:15] LABS: INTERNATIONAL NORMALIZED RATIO 1.1 RATIO; PROTHROMBIN TIME - PATIENT 11.2 SEC (9.8-11.6)
--- NOTE | 2017-12-11 08:32 | HHI.CCPN ---
Subjective Remarks/Hospital Course 62-year-old female with a past medical history significant for chronic pain with morphine pump, fibromyalgia, celiac disease and anxiety presented initially to the hospital for evaluation of leg spasms. The patient reports that she woke up approximately 1 AM and "could not control her legs." Her daughter gave her a 30 mg tablet of morphine to help with her symptoms yet they persisted. She was admitted to [facility] floor for further evaluation where she became suddenly lethargic and weak on the right side. The CT of the head was done immediately and shows large posterior parietal lobe hemorrhagic stroke with brain edema. She was immediately intubated for an airway protection and started on hyperosmolar therapy. 11/22: Patient underwent Left parietal craniotomy for intracerebral hematoma evacuation; Left frontal gt hole placement for ventriculostomy by Dr. Womack. Seen in the ICU immediately postop. Profoundly hypotensive systolic blood pressure initially in the 50s. Stat bolus of LR was ordered by anesthesia. Levophed increased to 12 mcg/min with improvement in systolic blood pressure to 110s. We will place arterial line. Currently patient is under the influence of anesthesia, not moving any extremities 11/23: T-max 101.1. Continues to be febrile. Placing NG tube and Julian catheter. Right upper extremity without movement. Withdraws right lower externally. Spontaneous movement to left upper and lower extremity. Starting on tube feeding. 11/24: Tmax 101.1. Currently. 2 bowel movement overnight. Urine with Escherichia coli/staph epi in blood. Potassium phosphorus been replaced. Hypertonic saline held due to sodium 160+. Very arousable off sedation with ICP is controlled. 11/25: Continues to spike intermittent fevers. Tolerating tube feeding at goal. With persistent fevers we will consult infectious disease. ICPs are well controlled. Sodium remains at 163. 11/26: no significant changes. hyperosmolar therapy continues. peak pressures elevated today into the 40s, but plateau pressure 19, suggestive of a flow restriction. given albuterol neb and changed to PRVC mode from VCV with improvement in peak pressures. 11/27: T-max 101.5. Currently 100.9. Planned ventriculostomy removal today. Will discuss with neurosurgery initiation of of pharmacological treatment for bilateral upper extremity deep venous thrombosis. Tolerating tube feeds goal will be 55 cc an hour 11/28: Tmax 101.4. Currently afebrile. Currently on enoxaparin 40 mg subcutaneous daily. Will advance to full dose anticoagulation once okay with neurosurgery. Tolerating tube feeds at goal. 11/29: Tmax 101.1. Currently 99.9. Resting in bed in no distress. Tolerating tube feeds. 11/30: Tmax 101.5. Currently afebrile. Central line has been exchanged to a left IJ CVL. Tolerating tube feeds at goal. PSV trial ongoing. 12/01: Tmax 99.7. Currently 98.2.. Central line exchanged yesterday. Will attempt PSV trial today. Atelectasis. Okayed for tracheostomy per neurosurgery. We'll coordinate PEG tube placement as well possibly this . Will discuss with daughter. 12/02: On midazolam drip at 3 mg an hour. Plan for tracheostomy this AM. Hemodynamically stable. 12/03: Tmax 99. Currently afebrile. Currently on midazolam drip at 6 an hour. Status post percutaneous tracheostomy with #8 Shiley cuffed 12/02. Plan for PEG tube but EGD 12/04. Very small bowel movement yesterday. Subjective 12/04: Afebrile. Plan to OR today secondary to PEG tube placement." Anticoagulation on Hold. Midazolam increased to 7 mg an hour due to agitation. Stopped quetiapine yesterday due to daughter's request due to "headaches" in past 12/05: Continue weaning efforts. Start TFs again once PEG cleared. 12/06: Will start full anticoagulation for DVT. Risk of embolus and/or propagation exceeds risk of ICH. 12/07: Daughter understands and accepts risks of full anticoagulation after brain bleed. Presence of multiple DVTs requires treatment. 12/08: Tolerating lovenox full anticoagulation. Will switch to coumadin and evaluate for rehab or SNF transfer. 12/09: Some interaction with PT/OT today, assessing for rehab potential. Converting to coumadin. 12/10: More active today. INR not therapeutic yet, continue lovenox. 12/11: Finally on T-piece full-time. Appears resistant to warfarin, continue lovenox full anticoagulation until INR is therapeutic. Objective Vital Signs Date Time Temp Pulse Resp B/P (MAP) Pulse Ox O2 Delivery O2 Flow Rate FiO2 12/11/17 06:00 97 12/11/17 04:00 97.9 16 119/59 (79) 100 12/10/17 21:15 T-piece 28 12/10/17 07:30 6.00 Intake and Output 12/11/17 12/11/17 12/12/17 08:00 16:00 00:00 Intake Total 924 ml Output Total 700 ml Balance 224 ml Result Diagram: 12/07/17 0435 12/08/17 0410 Imaging Last Impressions Abdomen X-Ray 12/03/17 0000 Signed Impressions: Service Date/Time: Sunday, December 03, 2017 10:38 - CONCLUSION: No significant small or large bowel loop dilation. Anurag Carrion MD Chest X-Ray 12/02/17 0000 Signed Impressions: Service Date/Time: Saturday, December 02, 2017 12:10 - CONCLUSION: 1. Tracheostomy in good position. Stable left IJ catheter. 2. Otherwise, no significant interval change. 3. Persistent patchy bilateral lower lung zone airspace disease. 4. Persistent prominence of the right paratracheal region. David Bacon MD Head CT 11/26/17 0000 Signed Impressions: Service Date/Time: Monday, November 27, 2017 04:18 - CONCLUSION: Decreased pneumocephalus, stable intracranial intra-axial extra-axial hemorrhage and left parietal edema, with postsurgical changes and midline shift. Ariel Nath MD Upper Extremity Ultrasound 11/25/17 0000 Signed Impressions: Service Date/Time: Saturday, November 25, 2017 18:56 - CONCLUSION: Positive for deep venous thrombosis bilateral extremities, right worse than left. Anurag Carrion MD Lower Extremity Ultrasound 11/25/17 0000 Signed Impressions: Service Date/Time: Saturday, November 25, 2017 17:50 - CONCLUSION: Negative for deep venous thrombosis bilateral lower extremity. Anurag Carrion MD Abdomen/Pelvis CT 11/21/17 0000 Signed Impressions: Service Date/Time: Tuesday, November 21, 2017 21:37 - CONCLUSION: 1. No evidence to indicate pancreatitis. 2. Multiple stones in the gallbladder. 3. Multiple bilateral renal calculi.. 4. No significant changes compared to the prior exam. Meir Donnelly MD GI Procedure 11/20/17 0000 Signed Impressions: Service Date/Time: Monday, November 20, 2017 16:40 - CONCLUSION: ERCP as above. Jose Echevarria MD Objective Remarks GENERAL: 64-year-old female currently resting in bed on ventilator via tracheostomy, tolerates SBTs. SKIN: Warm and dry. HEAD: Circumferential craniotomy dressing in place and left frontal EVD in place EYES: No scleral icterus. No injection or drainage. Pupils bilaterally 2 mm reactive ENT: Right NG tube. NECK: Supple, trachea midline. No JVD. Left IJ CVL is clean dry and intact as well. Tracheostomy site is clean dry and intact without bleeding CARDIOVASCULAR: Tachycardic, RR. Without murmurs, gallops, or rubs. No JVD. RESPIRATORY: Breath sounds equal bilaterally. No accessory muscle use. No wheezing, good air entry. Comfortable. GASTROINTESTINAL: Abdomen soft, non-tender, nondistended. Subcutaneous morphine pump in the right upper quadrant. MUSCULOSKELETAL: Bilateral 1+ upper extremity edema extending to hands. Well perfused. NEURO EXAM: Pupils equal, round, reactive. No movement right upper extremity. Withdraws to pain right lower extremity. Spontaneous moving left upper and lower extremity. Nods head to simple questions appropriately. More active in general. Date of Insertion: Nov 30, 2017 Line: Central Venous Catheter Side: Left Location: Internal, Jugular A/P Assessment and Plan NEURO/PSYCH: Large acute intraparenchymal hemorrhage involving the left parietal lobe Midline shift to the right by 9 mm Subarachnoid hemorrhage and cerebral edema on the left side Depression/anxiety Chronic pain on Morphine pump Chronic opioid use [place] [facility] History of C-spine fusion Status post left parietal craniotomy for intracerebral hematoma evacuation, Left frontal gt hole placement for ventriculostomy by Dr. Womack. Left ventric removed 11/27 - 3% sodium chloride infusion, target Na 150-155 currently on hold is currently 153 -Currently on levetiracetam 500 mg IV every 12 hours -Propofol switched to midazolam drip due to hypotension currently at 7 mg an hour Holding buspirone 30 mg twice daily and venlafaxine 50 mg twice daily for depression/anxiety. Resume when clinically indicated Holding acetaminophen/hydrocodone 325/7.51 tab every 6 hours as needed pain Holding scheduled morphine sulfate 30 mg every 12 hours Morphine liquid 10 mg every 6 hours scheduled with 1-2 mg every 3 hours as needed pain 1 through 10 Acetaminophen 650 mg every 6 hours as needed for fever Started quetiapine 50 mg twice a day in attempt to wean off midazolam drip however daughter states adverse reaction with headaches hence discontinued Venlafaxine 50 mill grams twice a day and trazodone 50 mg at night/home medication RESP: Acute respiratory failure Ongoing tobaccoism COPD - Trach for an airway protection Status post percutaneous tracheostomy 12/02 #8 Malachi [facility] 14/550/10/20/40 PSV trials daily as tolerated Ventilator bundle Albuterol/ipratropium aerosols every 6 hours with albuterol aerosols every 2 hours as needed dyspnea Tobacco cessation booklet provided when appropriate Working to T-piece trials -> done. CVS: Hypotension/shock Mild lactic acidosis History of hypertension -Currently off norepinephrine target map above 65 by calculation CPP 50-70. - 3% saline currently on hold with sodium currently > 150 - Hold metoprolol and lisinopril while borderline mean arterial pressure GI: Acute pancreatitis - resolved Opioid-induced constipation Cholelithiasis History of celiac disease 11/21/17 s/p ERCP with sphincterotomy and balloon extraction, finding choledocholithiasis. increase 0.8. tumor markers WNL. lipase WNL. WBC significant increase today, appears diaphoretic. tachycardic. GI signed off Resumed tube feedings with vital 1.5 goal 55 cc an hour per nutrition's recommendations with PEG tube plan Monday Lansoprazole 30 mg daily for GI prophylaxis. Continue docusate sodium 100 mg twice daily and senna 8.6 mg twice daily. Patient is on polyethylene glycol 17 g twice daily at home for constipation which is been continued along with lactulose 30 cc 4 times a day 1 dose Methylnaltrexone 12 mg subcutaneous 1. : Julian catheter for accurate I's and O's in a critically ill patient FEN/RENAL: Nephrolithiasis Hypernatremia Hyper-magnesium - Monitor renal function closely, ? Julian Free water 300 cc every 8 hours ID: E. coli UTI Coag negative staph bacteremia hold ceftriaxone per infectious disease Pertinent cultures 11/26 -CSF -no growth 11/25 -blood cultures 2 -no growth 11/19 -UA -pansensitive E. coli 11/20 -blood cultures 2 -coag negative staph/staph epi pansensitive 11/22 -blood cultures 2 -no growth to date Appreciate infectious disease for further antibiotic coverage HEME: Leukocytosis Normocytic anemia Sickle cell trait? Right subclavian/axillary and brachial DVT. Left cephalic superficial thrombus/ brachial thrombus - Leukocytosis most likely stress related - Monitor CBC daily. Follow trend Upper extremity also revealed bilateral superficial and deep venous thrombus as above - Start full anticoagulation 12/06 with lovenox 70 mg bid, convert to coumadin, d/c lovenox when therapeutic DVT GI prophylaxis - Teds SCDs Lovenox covers DVT px. Continue post procedure. - Iansoprazole 30 mg by tube daily Access - Left IJ CVL day 8 placed 11/30 -> d/c Overall impression: Slow progress. Unable to wean from ventilator. 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 Reyes Shelton MD Dec 11, 2017 08:32
[2017-12-11] MEDS: POLYETHYLENE GLYCOL 17 GM PKG NG SCH ×2 (09:00→21:03)
[2017-12-11] MEDS: SODIUM CHLORIDE 0.9% FLUSH 10 ML FLUSH IV FLUSH SCH ×3 (09:00→21:00)
[2017-12-11] MEDS: SENNOSIDES SYRUP 8.8 MG/5 ML CUP NG SCH ×2 (09:00→21:00)
[2017-12-11] MEDS: LANSOPRAZOLE SOLUTAB 30 MG TAB NG SCH (09:10)
[2017-12-11] MEDS: DOCUSATE SODIUM 100 MG/10 ML UDC PO SCH ×2 (09:10→21:03)
[2017-12-11] MEDS: NYSTATIN SUSP 500,000 U/5 ML CUP SWISH-SWAL SCH ×4 (09:11→21:03)
[2017-12-11] MEDS: levETIRAcetam 500 MG/5 ML UDC NG SCH ×2 (09:11→21:02)
[2017-12-11] MEDS: TRIAMCINOLONE ACETONIDE 0.1% CREAM 15 GM TOPICAL SCH ×2 (09:14→21:00)
[2017-12-11] MEDS: WARFARIN SOD 5 MG TAB PO SCH (16:08)
[2017-12-11] MEDS: traZODone HCL 50 MG TAB PO SCH (21:03)
[2017-12-12] VITALS (14 sets, daily range): BP systolic 92–120; BP diastolic 59–72; PULSE 87–109; RESP 18–22; TEMP 97.7–98.4; O2SAT 98–100
[2017-12-12] MEDS: ENOXAPARIN SODIUM 80 MG/0.8 ML SYRINGE SQ SCH ×2 (02:16→13:42)
[2017-12-12] MEDS: LACTULOSE SYRUP 20 GM/30 ML CUP NG SCH ×4 (05:00→23:12)
[2017-12-12] MEDS: ARTIFICIAL TEARS OPTH SOLN 15 ML BTL EACH EYE SCH ×3 (05:00→22:00)
[2017-12-12] MEDS: FREE WATER G-TUBE SCH ×3 (05:00→22:00)
[2017-12-12] MEDS: MORPHINE SULFATE ORAL SOLN 10 MG/0.5 ML SYRINGE NG SCH ×6 (05:00→23:14)
[2017-12-12] MEDS: VENLAFAXINE HCL 25 MG TAB PO SCH ×2 (05:00→16:24)
[2017-12-12 06:08] LABS: INTERNATIONAL NORMALIZED RATIO 1.2 RATIO
--- NOTE | 2017-12-12 08:11 | HHI.CCPN ---
Subjective Remarks/Hospital Course 62-year-old female with a past medical history significant for chronic pain with morphine pump, fibromyalgia, celiac disease and anxiety presented initially to the hospital for evaluation of leg spasms. The patient reports that she woke up approximately 1 AM and "could not control her legs." Her daughter gave her a 30 mg tablet of morphine to help with her symptoms yet they persisted. She was admitted to [facility] floor for further evaluation where she became suddenly lethargic and weak on the right side. The CT of the head was done immediately and shows large posterior parietal lobe hemorrhagic stroke with brain edema. She was immediately intubated for an airway protection and started on hyperosmolar therapy. 11/22: Patient underwent Left parietal craniotomy for intracerebral hematoma evacuation; Left frontal gt hole placement for ventriculostomy by Dr. Womack. Seen in the ICU immediately postop. Profoundly hypotensive systolic blood pressure initially in the 50s. Stat bolus of LR was ordered by anesthesia. Levophed increased to 12 mcg/min with improvement in systolic blood pressure to 110s. We will place arterial line. Currently patient is under the influence of anesthesia, not moving any extremities 11/23: T-max 101.1. Continues to be febrile. Placing NG tube and Julian catheter. Right upper extremity without movement. Withdraws right lower externally. Spontaneous movement to left upper and lower extremity. Starting on tube feeding. 11/24: Tmax 101.1. Currently. 2 bowel movement overnight. Urine with Escherichia coli/staph epi in blood. Potassium phosphorus been replaced. Hypertonic saline held due to sodium 160+. Very arousable off sedation with ICP is controlled. 11/25: Continues to spike intermittent fevers. Tolerating tube feeding at goal. With persistent fevers we will consult infectious disease. ICPs are well controlled. Sodium remains at 163. 11/26: no significant changes. hyperosmolar therapy continues. peak pressures elevated today into the 40s, but plateau pressure 19, suggestive of a flow restriction. given albuterol neb and changed to PRVC mode from VCV with improvement in peak pressures. 11/27: T-max 101.5. Currently 100.9. Planned ventriculostomy removal today. Will discuss with neurosurgery initiation of of pharmacological treatment for bilateral upper extremity deep venous thrombosis. Tolerating tube feeds goal will be 55 cc an hour 11/28: Tmax 101.4. Currently afebrile. Currently on enoxaparin 40 mg subcutaneous daily. Will advance to full dose anticoagulation once okay with neurosurgery. Tolerating tube feeds at goal. 11/29: Tmax 101.1. Currently 99.9. Resting in bed in no distress. Tolerating tube feeds. 11/30: Tmax 101.5. Currently afebrile. Central line has been exchanged to a left IJ CVL. Tolerating tube feeds at goal. PSV trial ongoing. 12/01: Tmax 99.7. Currently 98.2.. Central line exchanged yesterday. Will attempt PSV trial today. Atelectasis. Okayed for tracheostomy per neurosurgery. We'll coordinate PEG tube placement as well possibly this . Will discuss with daughter. 12/02: On midazolam drip at 3 mg an hour. Plan for tracheostomy this AM. Hemodynamically stable. 12/03: Tmax 99. Currently afebrile. Currently on midazolam drip at 6 an hour. Status post percutaneous tracheostomy with #8 Shiley cuffed 12/02. Plan for PEG tube but EGD 12/04. Very small bowel movement yesterday. Subjective 12/04: Afebrile. Plan to OR today secondary to PEG tube placement." Anticoagulation on Hold. Midazolam increased to 7 mg an hour due to agitation. Stopped quetiapine yesterday due to daughter's request due to "headaches" in past 12/05: Continue weaning efforts. Start TFs again once PEG cleared. 12/06: Will start full anticoagulation for DVT. Risk of embolus and/or propagation exceeds risk of ICH. 12/07: Daughter understands and accepts risks of full anticoagulation after brain bleed. Presence of multiple DVTs requires treatment. 12/08: Tolerating lovenox full anticoagulation. Will switch to coumadin and evaluate for rehab or SNF transfer. 12/09: Some interaction with PT/OT today, assessing for rehab potential. Converting to coumadin. 12/10: More active today. INR not therapeutic yet, continue lovenox. 12/11: Finally on T-piece full-time. Appears resistant to warfarin, continue lovenox full anticoagulation until INR is therapeutic. 12/12: After coumadin at 5 mg for 4 days INR only 1.2; increase daily dose to 7.5 mg. Comfortable on T-piece. Awaiting rehab placement Objective Vital Signs Date Time Temp Pulse Resp B/P (MAP) Pulse Ox O2 Delivery O2 Flow Rate FiO2 12/12/17 08:00 100 T-piece 28 12/12/17 06:00 109 12/12/17 04:00 98.1 21 92/59 (70) 12/11/17 08:46 5.00 Intake and Output 12/12/17 12/12/17 12/13/17 08:00 16:00 00:00 Intake Total 1118 ml Output Total 1850 ml Balance -732 ml Result Diagram: 12/08/17 0410 Imaging Last Impressions Abdomen X-Ray 12/03/17 0000 Signed Impressions: Service Date/Time: Sunday, December 03, 2017 10:38 - CONCLUSION: No significant small or large bowel loop dilation. Anurag Carrion MD Chest X-Ray 12/02/17 0000 Signed Impressions: Service Date/Time: Saturday, December 02, 2017 12:10 - CONCLUSION: 1. Tracheostomy in good position. Stable left IJ catheter. 2. Otherwise, no significant interval change. 3. Persistent patchy bilateral lower lung zone airspace disease. 4. Persistent prominence of the right paratracheal region. David Bacon MD Head CT 11/26/17 0000 Signed Impressions: Service Date/Time: Monday, November 27, 2017 04:18 - CONCLUSION: Decreased pneumocephalus, stable intracranial intra-axial extra-axial hemorrhage and left parietal edema, with postsurgical changes and midline shift. Ariel Nath MD Upper Extremity Ultrasound 11/25/17 0000 Signed Impressions: Service Date/Time: Saturday, November 25, 2017 18:56 - CONCLUSION: Positive for deep venous thrombosis bilateral extremities, right worse than left. Anurag Carrion MD Lower Extremity Ultrasound 11/25/17 0000 Signed Impressions: Service Date/Time: Saturday, November 25, 2017 17:50 - CONCLUSION: Negative for deep venous thrombosis bilateral lower extremity. Anurag Carrion MD Abdomen/Pelvis CT 11/21/17 0000 Signed Impressions: Service Date/Time: Tuesday, November 21, 2017 21:37 - CONCLUSION: 1. No evidence to indicate pancreatitis. 2. Multiple stones in the gallbladder. 3. Multiple bilateral renal calculi.. 4. No significant changes compared to the prior exam. Meir J. Siragusa, MD GI Procedure 11/20/17 0000 Signed Impressions: Service Date/Time: Monday, November 20, 2017 16:40 - CONCLUSION: ERCP as above. Jose Echevarria MD Objective Remarks GENERAL: 64-year-old female currently resting in bed on ventilator via tracheostomy, tolerates SBTs. SKIN: Warm and dry. HEAD: Wounds healing well. EYES: No scleral icterus. No injection or drainage. Pupils bilaterally 2 mm reactive ENT: Right NG tube. NECK: Supple, trachea midline. No JVD. Tracheostomy site is clean dry and intact without bleeding CARDIOVASCULAR: NL S1S2. Without murmurs, gallops, or rubs. No JVD. RESPIRATORY: Breath sounds equal bilaterally. No accessory muscle use. No wheezing, good air entry. Comfortable. GASTROINTESTINAL: Abdomen soft, non-tender, nondistended. Subcutaneous morphine pump in the right upper quadrant. MUSCULOSKELETAL: Warm, Well perfused. Some residual arm edema. NEURO EXAM: Pupils equal, round, reactive. No movement right upper extremity. Withdraws to pain right lower extremity. Spontaneous moving left upper and lower extremity. Nods head to simple questions appropriately. More active in general. Date of Insertion: Nov 30, 2017 Line: Central Venous Catheter Side: Left Location: Internal, Jugular A/P Assessment and Plan NEURO/PSYCH: Large acute intraparenchymal hemorrhage involving the left parietal lobe Midline shift to the right by 9 mm Subarachnoid hemorrhage and cerebral edema on the left side Depression/anxiety Chronic pain on Morphine pump Chronic opioid use [facility]MM[facility] History of C-spine fusion Status post left parietal craniotomy for intracerebral hematoma evacuation, Left frontal gt hole placement for ventriculostomy by Dr. Womack. Left ventric removed 11/27 -Currently on levetiracetam 500 mg IV every 12 hours Morphine liquid 10 mg every 6 hours scheduled with 1-2 mg every 3 hours as needed pain 1 through 10 Acetaminophen 650 mg every 6 hours as needed for fever Started quetiapine 50 mg twice a day in attempt to wean off midazolam drip however daughter states adverse reaction with headaches hence discontinued Venlafaxine 50 mill grams twice a day and trazodone 50 mg at night/home medication RESP: Acute respiratory failure Ongoing tobaccoism COPD - Trach for an airway protection Status post percutaneous tracheostomy 12/02 #8 Malachi [facility] [address]/10/20/40 PSV trials daily as tolerated Ventilator bundle Albuterol/ipratropium aerosols every 6 hours with albuterol aerosols every 2 hours as needed dyspnea Tobacco cessation booklet provided when appropriate Working to T-piece trials -> done. CVS: Hypotension/shock Mild lactic acidosis History of hypertension GI: Acute pancreatitis - resolved Opioid-induced constipation Cholelithiasis History of celiac disease 11/21/17 s/p ERCP with sphincterotomy and balloon extraction, finding choledocholithiasis. increase 0.8. tumor markers WNL. lipase WNL. WBC significant increase today, appears diaphoretic. tachycardic. GI signed off Resumed tube feedings with vital 1.5 goal 55 cc an hour per nutrition's recommendations Lansoprazole 30 mg daily for GI prophylaxis. Continue docusate sodium 100 mg twice daily and senna 8.6 mg twice daily. Patient is on polyethylene glycol 17 g twice daily at home for constipation which is been continued along with lactulose 30 cc 4 times a day : Julian catheter for accurate I's and O's in a critically ill patient FEN/RENAL: Nephrolithiasis Hypernatremia Hyper-magnesium - Monitor renal function closely, Free water 300 cc every 8 hours ID: E. coli UTI Coag negative staph bacteremia hold ceftriaxone per infectious disease Pertinent cultures 11/26 -CSF -no growth 11/25 -blood cultures 2 -no growth 11/19 -UA -pansensitive E. coli 11/20 -blood cultures 2 -coag negative staph/staph epi pansensitive 11/22 -blood cultures 2 -no growth to date Appreciate infectious disease for further antibiotic coverage HEME: Leukocytosis Normocytic anemia Sickle cell trait? Right subclavian/axillary and brachial DVT. Left cephalic superficial thrombus/ brachial thrombus - Leukocytosis most likely stress related - Monitor CBC daily. Follow trend Upper extremity also revealed bilateral superficial and deep venous thrombus as above - Start full anticoagulation 12/06 with lovenox 70 mg bid, convert to coumadin, d/c lovenox when therapeutic DVT GI prophylaxis - Teds SCDs Lovenox covers DVT px. Continue post procedure. - Iansoprazole 30 mg by tube daily Access - Left IJ CVL day 8 placed 11/30 -> d/c Overall impression: Slow progress. Off ventilator. 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 Reyes Shelton MD Dec 12, 2017 08:11
[2017-12-12] MEDS: POLYETHYLENE GLYCOL 17 GM PKG NG SCH ×2 (09:00→21:34)
[2017-12-12] MEDS: SENNOSIDES SYRUP 8.8 MG/5 ML CUP NG SCH ×2 (09:00→20:40)
[2017-12-12] MEDS: SODIUM CHLORIDE 0.9% FLUSH 10 ML FLUSH IV FLUSH SCH ×3 (09:00→20:40)
[2017-12-12] MEDS: DOCUSATE SODIUM 100 MG/10 ML UDC PO SCH ×2 (09:29→20:38)
[2017-12-12] MEDS: LANSOPRAZOLE SOLUTAB 30 MG TAB NG SCH (09:29)
[2017-12-12] MEDS: TRIAMCINOLONE ACETONIDE 0.1% CREAM 15 GM TOPICAL SCH ×2 (09:29→21:00)
[2017-12-12] MEDS: levETIRAcetam 500 MG/5 ML UDC NG SCH ×2 (09:29→20:40)
[2017-12-12] MEDS: NYSTATIN SUSP 500,000 U/5 ML CUP SWISH-SWAL SCH ×4 (09:29→20:38)
[2017-12-12] MEDS ORDERED: POTASSIUM CHLORIDE 25 MEQ EFFERVESCENT TAB NG ONE (14:00)
[2017-12-12] MEDS: WARFARIN SOD 7.5 MG TAB PO SCH (16:50)
[2017-12-12] MEDS: traZODone HCL 50 MG TAB PO SCH (20:38)
[2017-12-13] VITALS (15 sets, daily range): BP systolic 87–131; BP diastolic 58–72; PULSE 50–103; RESP 20–23; TEMP 98–98.4; O2SAT 98–100
[2017-12-13] MEDS: ENOXAPARIN SODIUM 80 MG/0.8 ML SYRINGE SQ SCH ×2 (01:23→13:10)
[2017-12-13] MEDS: VENLAFAXINE HCL 25 MG TAB PO SCH ×2 (03:36→15:29)
[2017-12-13] MEDS: MORPHINE SULFATE ORAL SOLN 10 MG/0.5 ML SYRINGE NG SCH ×5 (03:37→20:33)
[2017-12-13] MEDS: FREE WATER G-TUBE SCH ×3 (06:00→21:32)
[2017-12-13] MEDS: LACTULOSE SYRUP 20 GM/30 ML CUP NG SCH ×3 (06:00→18:00)
[2017-12-13] MEDS: ARTIFICIAL TEARS OPTH SOLN 15 ML BTL EACH EYE SCH ×3 (06:00→21:32)
[2017-12-13] MEDS: POLYETHYLENE GLYCOL 17 GM PKG NG SCH ×2 (09:00→21:30)
[2017-12-13] MEDS: SENNOSIDES SYRUP 8.8 MG/5 ML CUP NG SCH ×2 (09:00→21:30)
[2017-12-13] MEDS: SODIUM CHLORIDE 0.9% FLUSH 10 ML FLUSH IV FLUSH SCH ×3 (09:00→21:30)
[2017-12-13 09:11] LABS: HEMATOCRIT 29.1 % (35.0-46.0); HEMOGLOBIN 9.6 GM/DL (11.6-15.3); MEAN CELL VOLUME 86.2 FL (80.0-100.0); MEAN CORPUSCULAR HEMOGLOBIN 28.6 PG (27.0-34.0); MEAN CORPUSCULAR HGB CONC 33.1 % (32.0-36.0); MEAN PLATELET VOLUME 7.9 FL (7.0-11.0); PLATELET COUNT 377 TH/MM3 (150-450); RED BLOOD COUNT 3.37 MIL/MM3 (4.00-5.30); RED CELL DISTRIBUTION WIDTH 15.5 % (11.6-17.2); WHITE BLOOD COUNT 6.9 TH/MM3 (4.0-11.0)
[2017-12-13 09:20] LABS: INTERNATIONAL NORMALIZED RATIO 1.2 RATIO; PROTHROMBIN TIME - PATIENT 11.7 SEC (9.8-11.6)
[2017-12-13 09:27] LABS: BICARBONATE 32.7 MEQ/L (21.0-32.0); CALCIUM 9.6 MG/DL (8.5-10.1); CREATININE 0.68 MG/DL (0.50-1.00); MAGNESIUM 2.7 MG/DL (1.5-2.5)
[2017-12-13] MEDS: DOCUSATE SODIUM 100 MG/10 ML UDC PO SCH ×2 (09:28→21:29)
[2017-12-13] MEDS: NYSTATIN SUSP 500,000 U/5 ML CUP SWISH-SWAL SCH ×4 (09:28→20:33)
[2017-12-13] MEDS: levETIRAcetam 500 MG/5 ML UDC NG SCH ×2 (09:29→20:34)
[2017-12-13] MEDS: LANSOPRAZOLE SOLUTAB 30 MG TAB NG SCH (09:29)
[2017-12-13] MEDS: TRIAMCINOLONE ACETONIDE 0.1% CREAM 15 GM TOPICAL SCH ×2 (09:32→21:31)
--- NOTE | 2017-12-13 14:32 | HHI.PR ---
Subjective Remarks The patient was hoping to get out of the hospital soon. She denied any pain. She seemed to endorse some difficulty with bowel movements. She also endorsed sputum production. No other acute concerns. Objective Vitals Vital Signs Date Time Temp Pulse Resp B/P (MAP) Pulse Ox O2 Delivery O2 Flow Rate FiO2 12/13/17 12:00 80 12/13/17 12:00 98.4 90 22 102/65 (77) 100 12/13/17 10:00 94 12/13/17 08:51 100 T-piece 5.00 28 12/13/17 08:00 94 12/13/17 08:00 98.3 102 23 108/58 (75) 100 12/13/17 06:00 94 12/13/17 04:00 98.0 98 23 124/64 (84) 98 12/13/17 04:00 98 12/13/17 02:00 85 12/13/17 00:00 98.3 85 20 87/63 (71) 100 12/13/17 00:00 85 12/12/17 22:00 94 12/12/17 20:04 98 T-piece 28 12/12/17 20:00 96 12/12/17 20:00 98.3 96 20 110/61 (77) 99 12/12/17 18:17 92 12/12/17 16:28 97.7 87 22 106/67 (80) 98 12/12/17 16:00 87 I/O 12/12/17 12/12/17 12/12/17 12/13/17 12/13/17 12/13/17 07:00 15:00 23:00 07:00 15:00 23:00 Intake Total 1118 ml 962 ml 1193 ml Output Total 1850 ml 1250 ml 1400 ml Balance -732 ml -288 ml -207 ml Tube Feeding 518 ml 662 ml 593 ml Other 600 ml 300 ml 600 ml Output Urine Total 1850 ml 1250 ml 1400 ml # Bowel Movements 1 0 1 Result Diagram: 12/13/17 0825 12/13/17 0825 Imaging Last Impressions Chest X-Ray 12/05/17 0600 Signed Impressions: Service Date/Time: Tuesday, December 05, 2017 04:28 - CONCLUSION: 1. Mild patchy opacity is now noted in the left lung base. This could represent early pneumonia. 2. Interval removal of nasogastric tube. Julian Gutierrez MD Abdomen X-Ray 12/03/17 0000 Signed Impressions: Service Date/Time: Sunday, December 03, 2017 10:38 - CONCLUSION: No significant small or large bowel loop dilation. Anurag Carrion MD Head CT 11/26/17 0000 Signed Impressions: Service Date/Time: Monday, November 27, 2017 04:18 - CONCLUSION: Decreased pneumocephalus, stable intracranial intra-axial extra-axial hemorrhage and left parietal edema, with postsurgical changes and midline shift. Ariel Nath MD Upper Extremity Ultrasound 11/25/17 0000 Signed Impressions: Service Date/Time: Saturday, November 25, 2017 18:56 - CONCLUSION: Positive for deep venous thrombosis bilateral extremities, right worse than left. Anurag Carrion MD Lower Extremity Ultrasound 11/25/17 0000 Signed Impressions: Service Date/Time: Saturday, November 25, 2017 17:50 - CONCLUSION: Negative for deep venous thrombosis bilateral lower extremity. Anurag Carrion MD Abdomen/Pelvis CT 11/21/17 0000 Signed Impressions: Service Date/Time: Tuesday, November 21, 2017 21:37 - CONCLUSION: 1. No evidence to indicate pancreatitis. 2. Multiple stones in the gallbladder. 3. Multiple bilateral renal calculi.. 4. No significant changes compared to the prior exam. Meir Donnelly MD GI Procedure 11/20/17 0000 Signed Impressions: Service Date/Time: Monday, November 20, 2017 16:40 - CONCLUSION: ERCP as above. Jose Echevarria MD Objective Remarks GENERAL: Resting comfortably in bed. SKIN: Warm and dry. HEAD: Wounds healing well. EYES: No scleral icterus. No injection or drainage. Pupils bilaterally 2 mm reactive. NECK: Supple, trachea midline. No JVD. Tracheostomy site is clean dry and intact without bleeding. CARDIOVASCULAR: NL S1S2. Without murmurs, gallops, or rubs. No JVD. RESPIRATORY: Breath sounds equal bilaterally. No accessory muscle use. No wheezing, good air entry. Comfortable. GASTROINTESTINAL: Abdomen soft, non-tender, nondistended. Subcutaneous morphine pump in the right upper quadrant. MUSCULOSKELETAL: Warm, Well perfused. Some residual arm edema. NEURO: Pupils equal, round, reactive. No movement right upper extremity. Withdraws to pain right lower extremity. Spontaneous moving left upper and lower extremity. PSYCH: Mood and affect appropriate. Medications and IVs Current Medications Medications (Trade) Dose Ordered Sig/Rachel Route Start Time Stop Time Status Last Admin (NS Flush) 2 ml UNSCH PRN IV FLUSH 11/19/17 04:45 (NS Flush) 2 ml BID IV FLUSH 11/19/17 09:00 12/13/17 09:31 (Zofran Inj) 4 mg Q6H PRN IVP 11/19/17 04:45 (Narcan Inj) 0.4 mg UNSCH PRN IV PUSH 11/19/17 04:45 (Buspar) 30 mg BID PO 11/20/17 09:00 Future Hold 11/21/17 20:28 (Fioricet 325-50-40) 1 tab Q4H PRN PO 11/20/17 05:30 Future Hold 11/20/17 20:33 (Aristocort 0.1% Cream) 1 applic BID TOPICAL 11/21/17 12:00 12/13/17 09:32 (Prinivil) 20 mg DAILY PO 11/22/17 09:00 Future Hold (Lopressor) 12.5 mg Q12HR PO 11/21/17 10:00 Future Hold 11/21/17 20:32 (Colace Liq) 100 mg Q12HR PO 11/22/17 09:00 12/13/17 09:28 (Senna Liq) 8.8 mg BID NG 11/23/17 21:00 12/12/17 20:40 (Albuterol Neb) 2.5 mg Q2HR NEB PRN NEB 11/23/17 16:00 12/06/17 21:20 (Prevacid Odt) 30 mg DAILY NG 11/24/17 09:00 12/13/17 09:29 (Tears Naturale Opth Soln) 1 drop Q8HR EACH EYE 11/23/17 22:00 12/13/17 06:00 Midazolam HCl 100 ml @ 2 mls/hr TITRATE PRN IV 11/24/17 11:00 12/06/17 16:26 (Roxanol Liq) 10 mg Q4HR NG 11/29/17 16:00 12/13/17 12:47 (Miralax) 17 gm BID NG 11/29/17 21:00 12/12/17 21:34 (Cathflo Activase Inj) 2 mg Q2H PRN INTRACATH 11/29/17 14:15 12/08/17 11:33 (Morphine Inj) 3 mg Q2HR PRN IV PUSH 11/29/17 15:15 (Morphine Inj) 2 mg Q2HR PRN IV PUSH 11/29/17 15:15 (NS Flush) DAILY IV FLUSH 11/30/17 09:00 12/10/17 09:35 (NS Flush) UNSCH PRN IV FLUSH 11/30/17 08:45 (Free Water) VOLUME: 300 ML Q8HR G-TUBE 11/30/17 14:00 12/13/17 06:00 (Tylenol 650 Mg/ 20 ml Liq) 650 mg Q6H PRN NG 11/30/17 09:00 12/07/17 04:52 (Trandate Inj) 10 mg Q1HR PRN IV PUSH 12/01/17 12:00 12/01/17 11:43 (Vasotec Inj) 1.25 mg Q6H PRN IV PUSH 12/01/17 12:00 (Nitroglycerin 2% Oint) 2 inch Q6HR PRN TOPICAL 12/01/17 12:00 (Brethine Inj) 1 mg UNSCH PRN SQ 12/02/17 11:30 (Keppra Liq) 500 mg Q12HR NG 12/03/17 21:00 12/13/17 09:29 (Lactulose Liq) 30 ml Q6HR NG 12/03/17 12:00 12/12/17 23:12 (Mycostatin Liq) 5 ml QID SWISH-SWAL 12/03/17 13:00 12/13/17 12:47 (Effexor) 50 mg Q12H PO 12/03/17 16:00 12/13/17 03:36 (Desyrel) 50 mg HS PO 12/03/17 21:00 12/12/17 20:38 (Lovenox Inj) 70 mg Q12H SQ 12/06/17 14:00 12/13/17 13:10 (Coumadin) 7.5 mg DAILY@1600 PO 12/12/17 16:00 12/12/17 16:50 Date of Insertion: Nov 30, 2017 Line: Central Venous Catheter Side: Left Location: Internal, Jugular A/P Assessment and Plan Large acute intraparenchymal hemorrhage involving the left parietal lobe Midline shift to the right by 9 mm Subarachnoid hemorrhage and cerebral edema on the left side Depression/anxiety Chronic pain on Morphine pump Chronic opioid use [place] History of C-spine fusion Status post left parietal craniotomy for intracerebral hematoma evacuation, Left frontal gt hole placement for ventriculostomy by Dr. Womack. Left ventric removed 11/27. - Currently on levetiracetam 500 mg IV every 12 hours. - Morphine liquid 10 mg every 6 hours scheduled with 1-2 mg every 3 hours as needed pain 1 through 10. - Acetaminophen 650 mg every 6 hours as needed for fever. - Venlafaxine 50 mill grams twice a day and trazodone 50 mg at night/home medication. Acute respiratory failure Ongoing tobaccoism COPD Status post percutaneous tracheostomy 12/02 #8 Malachi. - PRVC 14/550/10/20/39. - PSV trials daily as tolerated. - Ventilator bundle. - Albuterol/ipratropium aerosols every 6 hours with albuterol aerosols every 2 hours as needed dyspnea. - Tobacco cessation booklet provided when appropriate. Acute pancreatitis - resolved Opioid-induced constipation Cholelithiasis History of celiac disease 11/21/17 s/p ERCP with sphincterotomy and balloon extraction, finding choledocholithiasis. GI signed off. - Resumed tube feedings with vital 1.5 goal 55 cc an hour per nutrition's recommendations . - Lansoprazole 30 mg daily for GI prophylaxis. - Continue docusate sodium 100 mg twice daily and senna 8.6 mg twice daily. Patient is on polyethylene glycol 17 g twice daily at home for constipation which is been continued along with lactulose 30 cc 4 times a day. Nephrolithiasis Hypernatremia Hyper-magnesium - Free water 300 cc every 8 hours. E. coli UTI Coag negative staph bacteremia. 11/19 -UA -pansensitive E. coli. 11/20 -blood cultures 2 -coag negative staph/staph epi pansensitive. ID consult appreciated. - hold ceftriaxone per infectious disease. DVT Right subclavian/axillary and brachial DVT. Left cephalic superficial thrombus/ brachial thrombus. - Start full anticoagulation 12/06 with Lovenox 70 mg bid, convert to Coumadin, d/c Lovenox when therapeutic. PPx: Lovenox Discharge Planning Needs rehab Julian Manjarrez DO Dec 13, 2017 14:32
[2017-12-13] MEDS: WARFARIN SOD 7.5 MG TAB PO SCH (15:29)
[2017-12-13] MEDS: traZODone HCL 50 MG TAB PO SCH (20:33)
[2017-12-14] VITALS (10 sets, daily range): BP systolic 106–126; BP diastolic 53–68; PULSE 90–108; RESP 18; TEMP 97.4–99.1; O2SAT 95–100
[2017-12-14] MEDS: ENOXAPARIN SODIUM 80 MG/0.8 ML SYRINGE SQ SCH ×2 (01:17→14:06)
[2017-12-14] MEDS: MORPHINE SULFATE ORAL SOLN 10 MG/0.5 ML SYRINGE NG SCH ×4 (01:17→14:06)
[2017-12-14] MEDS: LACTULOSE SYRUP 20 GM/30 ML CUP NG SCH ×4 (01:17→18:00)
[2017-12-14] MEDS: ARTIFICIAL TEARS OPTH SOLN 15 ML BTL EACH EYE SCH ×2 (05:27→21:04)
[2017-12-14] MEDS: VENLAFAXINE HCL 25 MG TAB PO SCH ×2 (05:27→17:38)
[2017-12-14] MEDS: FREE WATER G-TUBE SCH ×3 (05:28→21:04)
[2017-12-14] MEDS: DOCUSATE SODIUM 100 MG/10 ML UDC PO SCH ×2 (09:00→21:00)
[2017-12-14] MEDS: POLYETHYLENE GLYCOL 17 GM PKG NG SCH ×2 (09:00→20:51)
[2017-12-14] MEDS: SODIUM CHLORIDE 0.9% FLUSH 10 ML FLUSH IV FLUSH SCH ×3 (09:00→20:51)
[2017-12-14] MEDS: SENNOSIDES SYRUP 8.8 MG/5 ML CUP NG SCH ×2 (09:00→21:00)
[2017-12-14] MEDS: NYSTATIN SUSP 500,000 U/5 ML CUP SWISH-SWAL SCH ×4 (09:26→21:00)
[2017-12-14] MEDS: LANSOPRAZOLE SOLUTAB 30 MG TAB NG SCH (09:26)
[2017-12-14] MEDS: levETIRAcetam 500 MG/5 ML UDC NG SCH ×2 (09:33→20:47)
--- NOTE | 2017-12-14 14:24 | HHI.PR ---
Subjective Remarks The patient's daughter was at the bedside. The patient had no acute complaints. She said her trach was bothersome at times but not very problematic. She has been having some abdominal cramping. The morphine has been making her a little loopy. Objective Vitals Vital Signs Date Time Temp Pulse Resp B/P (MAP) Pulse Ox O2 Delivery O2 Flow Rate FiO2 12/14/17 12:00 98.0 91 18 117/61 (79) 99 12/14/17 09:43 98 T-piece 28 12/14/17 08:00 97.7 90 18 107/68 (81) 99 12/14/17 04:00 98.0 108 18 126/67 (86) 95 12/14/17 00:10 98 T-piece 5.00 28 12/14/17 00:00 98.9 93 18 110/68 (82) 100 12/13/17 22:00 97 12/13/17 20:47 100 Trach Collar 28 12/13/17 20:00 98.0 97 20 108/72 (84) 100 12/13/17 20:00 97 12/13/17 18:00 98 12/13/17 16:41 98.2 94 20 131/72 (91) 100 12/13/17 16:00 103 I/O 12/13/17 12/13/17 12/13/17 12/14/17 12/14/17 12/14/17 07:00 15:00 23:00 07:00 15:00 23:00 Intake Total 1193 ml 900 ml Output Total 1400 ml 1260 ml 1500 ml Balance -207 ml -360 ml -1500 ml Intake Oral 320 ml Tube Feeding 593 ml 280 ml Other 600 ml 300 ml Output Urine Total 1400 ml 1260 ml 1500 ml # Bowel Movements 1 1 1 Result Diagram: 12/13/17 0825 12/13/17 0825 Imaging Last Impressions Chest X-Ray 12/05/17 0600 Signed Impressions: Service Date/Time: Tuesday, December 05, 2017 04:28 - CONCLUSION: 1. Mild patchy opacity is now noted in the left lung base. This could represent early pneumonia. 2. Interval removal of nasogastric tube. Julian Gutierrez MD Abdomen X-Ray 12/03/17 0000 Signed Impressions: Service Date/Time: Sunday, December 03, 2017 10:38 - CONCLUSION: No significant small or large bowel loop dilation. Anurag Carrion MD Head CT 11/26/17 0000 Signed Impressions: Service Date/Time: Monday, November 27, 2017 04:18 - CONCLUSION: Decreased pneumocephalus, stable intracranial intra-axial extra-axial hemorrhage and left parietal edema, with postsurgical changes and midline shift. Ariel Nath MD Upper Extremity Ultrasound 11/25/17 0000 Signed Impressions: Service Date/Time: Saturday, November 25, 2017 18:56 - CONCLUSION: Positive for deep venous thrombosis bilateral extremities, right worse than left. Anurag Carrion MD Lower Extremity Ultrasound 11/25/17 0000 Signed Impressions: Service Date/Time: Saturday, November 25, 2017 17:50 - CONCLUSION: Negative for deep venous thrombosis bilateral lower extremity. Anurag Carrion MD Abdomen/Pelvis CT 11/21/17 0000 Signed Impressions: Service Date/Time: Tuesday, November 21, 2017 21:37 - CONCLUSION: 1. No evidence to indicate pancreatitis. 2. Multiple stones in the gallbladder. 3. Multiple bilateral renal calculi.. 4. No significant changes compared to the prior exam. Meir Donnelly MD GI Procedure 11/20/17 0000 Signed Impressions: Service Date/Time: Monday, November 20, 2017 16:40 - CONCLUSION: ERCP as above. Jose Echevarria MD Objective Remarks GENERAL: Resting comfortably in bed. SKIN: Warm and dry. HEAD: Wounds healing well. EYES: No scleral icterus. No injection or drainage. Pupils bilaterally 2 mm reactive. NECK: Supple, trachea midline. No JVD. Tracheostomy site is clean dry and intact without bleeding. CARDIOVASCULAR: NL S1S2. Without murmurs, gallops, or rubs. No JVD. RESPIRATORY: Breath sounds equal bilaterally. No accessory muscle use. No wheezing, good air entry. Comfortable. GASTROINTESTINAL: Abdomen soft, non-tender, nondistended. Subcutaneous morphine pump in the right upper quadrant. MUSCULOSKELETAL: Warm, Well perfused. No edema. NEURO: Pupils equal, round, reactive. No movement right upper extremity. Withdraws to pain right lower extremity. Spontaneous moving left upper and lower extremity. PSYCH: Mood and affect appropriate. Medications and IVs Current Medications Medications (Trade) Dose Ordered Sig/Rachel Route Start Time Stop Time Status Last Admin (NS Flush) 2 ml UNSCH PRN IV FLUSH 11/19/17 04:45 (NS Flush) 2 ml BID IV FLUSH 11/19/17 09:00 12/14/17 09:00 (Zofran Inj) 4 mg Q6H PRN IVP 11/19/17 04:45 (Narcan Inj) 0.4 mg UNSCH PRN IV PUSH 11/19/17 04:45 (Buspar) 30 mg BID PO 11/20/17 09:00 Future Hold 11/21/17 20:28 (Fioricet 325-50-40) 1 tab Q4H PRN PO 11/20/17 05:30 Future Hold 11/20/17 20:33 (Aristocort 0.1% Cream) 1 applic BID TOPICAL 11/21/17 12:00 12/13/17 21:31 (Prinivil) 20 mg DAILY PO 11/22/17 09:00 Future Hold (Lopressor) 12.5 mg Q12HR PO 11/21/17 10:00 Future Hold 11/21/17 20:32 (Colace Liq) 100 mg Q12HR PO 11/22/17 09:00 12/13/17 21:29 (Senna Liq) 8.8 mg BID NG 11/23/17 21:00 12/13/17 21:30 (Albuterol Neb) 2.5 mg Q2HR NEB PRN NEB 11/23/17 16:00 12/06/17 21:20 (Prevacid Odt) 30 mg DAILY NG 11/24/17 09:00 12/14/17 09:26 (Tears Naturale Opth Soln) 1 drop Q8HR EACH EYE 11/23/17 22:00 12/14/17 05:27 Midazolam HCl 100 ml @ 2 mls/hr TITRATE PRN IV 11/24/17 11:00 12/06/17 16:26 (Roxanol Liq) 10 mg Q4HR NG 11/29/17 16:00 12/14/17 14:06 (Miralax) 17 gm BID NG 11/29/17 21:00 12/13/17 21:30 (Cathflo Activase Inj) 2 mg Q2H PRN INTRACATH 11/29/17 14:15 12/08/17 11:33 (Morphine Inj) 3 mg Q2HR PRN IV PUSH 11/29/17 15:15 (Morphine Inj) 2 mg Q2HR PRN IV PUSH 11/29/17 15:15 (NS Flush) DAILY IV FLUSH 11/30/17 09:00 12/10/17 09:35 (NS Flush) UNSCH PRN IV FLUSH 11/30/17 08:45 (Free Water) VOLUME: 300 ML Q8HR G-TUBE 11/30/17 14:00 12/14/17 13:50 (Tylenol 650 Mg/ 20 ml Liq) 650 mg Q6H PRN NG 11/30/17 09:00 12/07/17 04:52 (Trandate Inj) 10 mg Q1HR PRN IV PUSH 12/01/17 12:00 12/01/17 11:43 (Vasotec Inj) 1.25 mg Q6H PRN IV PUSH 12/01/17 12:00 (Nitroglycerin 2% Oint) 2 inch Q6HR PRN TOPICAL 12/01/17 12:00 (Brethine Inj) 1 mg UNSCH PRN SQ 12/02/17 11:30 (Keppra Liq) 500 mg Q12HR NG 12/03/17 21:00 12/14/17 09:33 (Lactulose Liq) 30 ml Q6HR NG 12/03/17 12:00 12/14/17 05:27 (Mycostatin Liq) 5 ml QID SWISH-SWAL 12/03/17 13:00 12/14/17 13:00 (Effexor) 50 mg Q12H PO 12/03/17 16:00 12/14/17 05:27 (Desyrel) 50 mg HS PO 12/03/17 21:00 12/13/17 20:33 (Lovenox Inj) 70 mg Q12H SQ 12/06/17 14:00 12/14/17 14:06 (Coumadin) 7.5 mg DAILY@1600 PO 12/12/17 16:00 12/13/17 15:29 Date of Insertion: Nov 30, 2017 Line: Central Venous Catheter Side: Left Location: Internal, Jugular A/P Assessment and Plan Large acute intraparenchymal hemorrhage involving the left parietal lobe Midline shift to the right by 9 mm. Subarachnoid hemorrhage and cerebral edema on the left side. Status post left parietal craniotomy for intracerebral hematoma evacuation, Left frontal gt hole placement for ventriculostomy by Dr. Womack. Left ventric removed 11/27. - Currently on levetiracetam 500 mg IV every 12 hours. - Morphine liquid as needed with IV morphine for breakthrough. - Venlafaxine 50 mill grams twice a day and trazodone 50 mg at night/home medication. - PT/ OT/ ST. Acute respiratory failure Status post percutaneous tracheostomy 12/02 #8 [place]. Has COPD and ongoing tobaccoism. - Albuterol/ipratropium aerosols every 6 hours with albuterol aerosols every 2 hours as needed dyspnea. - Tobacco cessation. - Trial of Pass[place] valve per respiratory. - pulmonology consult requested. Acute pancreatitis/ choledocholithiasis/ History of celiac disease 11/21/17 s/p ERCP with sphincterotomy and balloon extraction, finding choledocholithiasis. GI signed off. - Resumed tube feedings with vital 1.5 goal 55 cc an hour per nutrition's recommendations . - Lansoprazole 30 mg daily for GI prophylaxis. - Continue docusate sodium 100 mg twice daily and senna 8.6 mg twice daily. Patient is on polyethylene glycol 17 g twice daily at home for constipation which is been continued along with lactulose 30 cc 4 times a day. Chronic pain On Morphine pump. - continue pain management as above. E. coli UTI Coag negative staph bacteremia. 11/19 -UA -pansensitive E. coli. 11/20 -blood cultures 2 -coag negative staph/staph epi pansensitive. ID consult appreciated. - hold ceftriaxone per infectious disease. DVT Right subclavian/axillary and brachial DVT. Left cephalic superficial thrombus/ brachial thrombus. - Start full anticoagulation 12/06 with Lovenox 70 mg bid, convert to Coumadin, d/c Lovenox when therapeutic. PPx: Lovenox Discharge Planning Needs rehab Julian Manjarrez DO Dec 14, 2017 14:24
[2017-12-14] MEDS ORDERED: ACETAMINOPHEN/HYDROcodone 325 MG/5 MG TAB PO PRN (15:00)
[2017-12-14] MEDS ORDERED: MORPHINE SULFATE 2 MG/ML INJ IV PUSH PRN (15:00)
[2017-12-14] MEDS: WARFARIN SOD 7.5 MG TAB PO SCH (17:38)
[2017-12-14] MEDS: MORPHINE SULFATE ORAL SOLN 10 MG/0.5 ML SYRINGE NG PRN (20:47)
[2017-12-14] MEDS: traZODone HCL 50 MG TAB PO SCH (20:47)
[2017-12-14] MEDS: TRIAMCINOLONE ACETONIDE 0.1% CREAM 15 GM TOPICAL SCH (21:00)
[2017-12-15] VITALS (11 sets, daily range): BP systolic 111–135; BP diastolic 63–73; PULSE 93–116; RESP 18–20; TEMP 97.9–99.1; O2SAT 94–100
[2017-12-15] MEDS: VENLAFAXINE HCL 25 MG TAB PO SCH ×2 (03:48→15:00)
[2017-12-15] MEDS: ENOXAPARIN SODIUM 80 MG/0.8 ML SYRINGE SQ SCH ×2 (03:52→15:00)
[2017-12-15] MEDS: MORPHINE SULFATE ORAL SOLN 10 MG/0.5 ML SYRINGE NG PRN ×4 (03:53→21:52)
[2017-12-15] MEDS: LACTULOSE SYRUP 20 GM/30 ML CUP NG SCH ×4 (04:55→18:00)
[2017-12-15] MEDS: FREE WATER G-TUBE SCH ×3 (04:55→21:56)
[2017-12-15] MEDS: ARTIFICIAL TEARS OPTH SOLN 15 ML BTL EACH EYE SCH ×3 (04:55→21:56)
[2017-12-15] MEDS: RESP: ALBUTEROL 2.5 MG/IPRATROPIUM 0.5 MG NEB (SCH) NEB ×4 (07:40→19:42)
--- NOTE | 2017-12-15 07:43 | RADRPT ---
EXAM DATE/TIME: 12/15/2017 06:40 [facility] COMPARISON: CHEST SINGLE AP, December 05, 2017, 4:28. INDICATIONS : Short of breath, evaluate infiltrate MEDICAL HISTORY : Chronic obstructive pulmonary disease. Gastroesophageal reflux disease. Cardiovascular disease. C eliac disease, fibromyalgia SURGICAL HISTORY : cervical fusion, tubal ligation ENCOUNTER: Subsequent ACUITY: 2 weeks PAIN SCORE: Non-responsive. LOCATION: Bilateral chest FINDINGS: Right basilar airspace disease has developed since the prior study. Mild left basilar airspace diseas e seen previously has almost completely resolved. Upper lung urena are clear. Tracheostomy tube remains in good position. Left jugular central line has been removed. CONCLUSION: 1. Acute right basilar airspace disease. 2. Subtotal resolution of left basilar airspace disease. 3. Stable tracheostomy tube. Jaspreet Meng MD on December 15, 2017 at 7:40 Board Certified Radiologist. This report was verified electronically.
[2017-12-15 08:33] LABS: HEMATOCRIT 30.8 % (35.0-46.0); HEMOGLOBIN 10.3 GM/DL (11.6-15.3); MEAN CELL VOLUME 86.5 FL (80.0-100.0); MEAN CORPUSCULAR HGB CONC 33.5 % (32.0-36.0); MEAN PLATELET VOLUME 7.8 FL (7.0-11.0); PLATELET COUNT 383 TH/MM3 (150-450); RED BLOOD COUNT 3.56 MIL/MM3 (4.00-5.30); RED CELL DISTRIBUTION WIDTH 15.8 % (11.6-17.2)
[2017-12-15 09:00] LABS: BICARBONATE 29.2 MEQ/L (21.0-32.0); CREATININE 0.84 MG/DL (0.50-1.00); MAGNESIUM 2.7 MG/DL (1.5-2.5)
[2017-12-15] MEDS: NYSTATIN SUSP 500,000 U/5 ML CUP SWISH-SWAL SCH ×4 (09:00→21:00)
[2017-12-15] MEDS: POLYETHYLENE GLYCOL 17 GM PKG NG SCH ×2 (09:00→21:00)
[2017-12-15] MEDS: SENNOSIDES SYRUP 8.8 MG/5 ML CUP NG SCH ×2 (09:00→21:00)
[2017-12-15] MEDS: LANSOPRAZOLE SOLUTAB 30 MG TAB NG SCH (09:00)
[2017-12-15] MEDS: SODIUM CHLORIDE 0.9% FLUSH 10 ML FLUSH IV FLUSH SCH ×3 (09:00→21:00)
[2017-12-15] MEDS: DOCUSATE SODIUM 100 MG/10 ML UDC PO SCH ×2 (09:00→21:00)
[2017-12-15] MEDS: levETIRAcetam 500 MG/5 ML UDC NG SCH ×2 (09:00→21:52)
[2017-12-15] MEDS: TRIAMCINOLONE ACETONIDE 0.1% CREAM 15 GM TOPICAL SCH ×2 (09:00→21:00)
[2017-12-15 12:45] LABS: INTERNATIONAL NORMALIZED RATIO 1.2 RATIO; PROTHROMBIN TIME - PATIENT 12.6 SEC (9.8-11.6)
--- NOTE | 2017-12-15 12:51 | HHI.PR ---
Subjective Remarks The patient was resting comfortably in bed. Her family was at the bedside. The patient had no acute complaints. Her family states she was able to talk better today. She worked with physical therapy today. She is anxious to go to rehabilitation soon. Discussed with nursing. Objective Vitals Vital Signs Date Time Temp Pulse Resp B/P (MAP) Pulse Ox O2 Delivery O2 Flow Rate FiO2 12/15/17 12:00 98.0 109 18 111/67 (82) 98 12/15/17 11:14 Venturi Mask 28 12/15/17 11:05 94 Trach Collar 4.00 12/15/17 08:00 98.3 96 18 117/73 (88) 100 12/15/17 07:43 99 T-piece 28 12/15/17 04:00 98.5 93 20 112/64 (80) 97 12/14/17 21:15 102 12/14/17 20:37 97 T-piece 4.00 28 12/14/17 20:14 97.4 92 18 114/63 (80) 99 12/14/17 16:00 99.1 99 18 106/53 (70) 99 I/O 12/14/17 12/14/17 12/14/17 12/15/17 12/15/17 12/15/17 07:00 15:00 23:00 07:00 15:00 23:00 Output Total 1500 ml 2425 ml 1600 ml Balance -1500 ml -2425 ml -1600 ml Output Urine Total 1500 ml 2425 ml 1600 ml # Bowel Movements 1 2 2 Result Diagram: 12/15/17 0746 12/15/17 0746 Imaging Last Impressions Chest X-Ray 12/15/17 0600 Signed Impressions: Service Date/Time: Friday, December 15, 2017 06:40 - CONCLUSION: 1. Acute right basilar airspace disease. 2. Subtotal resolution of left basilar airspace disease. 3. Stable tracheostomy tube. Jaspreet Meng MD Abdomen X-Ray 12/03/17 0000 Signed Impressions: Service Date/Time: Sunday, December 03, 2017 10:38 - CONCLUSION: No significant small or large bowel loop dilation. Anurag Carrion MD Head CT 11/26/17 0000 Signed Impressions: Service Date/Time: Monday, November 27, 2017 04:18 - CONCLUSION: Decreased pneumocephalus, stable intracranial intra-axial extra-axial hemorrhage and left parietal edema, with postsurgical changes and midline shift. Ariel Nath MD Upper Extremity Ultrasound 11/25/17 0000 Signed Impressions: Service Date/Time: Saturday, November 25, 2017 18:56 - CONCLUSION: Positive for deep venous thrombosis bilateral extremities, right worse than left. Anurag Carrion MD Lower Extremity Ultrasound 11/25/17 0000 Signed Impressions: Service Date/Time: Saturday, November 25, 2017 17:50 - CONCLUSION: Negative for deep venous thrombosis bilateral lower extremity. Anurag Carrion MD Abdomen/Pelvis CT 11/21/17 0000 Signed Impressions: Service Date/Time: Tuesday, November 21, 2017 21:37 - CONCLUSION: 1. No evidence to indicate pancreatitis. 2. Multiple stones in the gallbladder. 3. Multiple bilateral renal calculi.. 4. No significant changes compared to the prior exam. Meir Donnelly MD GI Procedure 11/20/17 0000 Signed Impressions: Service Date/Time: Monday, November 20, 2017 16:40 - CONCLUSION: ERCP as above. Jose Echevarria MD Objective Remarks GENERAL: Resting comfortably in bed. SKIN: Warm and dry. HEAD: Wounds healing well. EYES: No scleral icterus. No injection or drainage. Pupils bilaterally 2 mm reactive. NECK: Supple, trachea midline. No JVD. Tracheostomy site is clean dry and intact without bleeding. CARDIOVASCULAR: NL S1S2. Without murmurs, gallops, or rubs. No JVD. RESPIRATORY: Breath sounds equal bilaterally. No accessory muscle use. No wheezing, good air entry. Comfortable. GASTROINTESTINAL: Abdomen soft, non-tender, nondistended. Subcutaneous morphine pump in the right upper quadrant. MUSCULOSKELETAL: Warm, Well perfused. No edema. NEURO: Pupils equal, round, reactive. No movement right upper extremity. Withdraws to pain right lower extremity. Spontaneous moving left upper and lower extremity. PSYCH: Mood and affect appropriate. Medications and IVs Current Medications Medications (Trade) Dose Ordered Sig/Rachel Route Start Time Stop Time Status Last Admin (NS Flush) 2 ml UNSCH PRN IV FLUSH 11/19/17 04:45 (NS Flush) 2 ml BID IV FLUSH 11/19/17 09:00 12/14/17 20:51 (Zofran Inj) 4 mg Q6H PRN IVP 11/19/17 04:45 (Narcan Inj) 0.4 mg UNSCH PRN IV PUSH 11/19/17 04:45 (Buspar) 30 mg BID PO 11/20/17 09:00 Future Hold 11/21/17 20:28 (Fioricet 325-50-40) 1 tab Q4H PRN PO 11/20/17 05:30 Future Hold 11/20/17 20:33 (Aristocort 0.1% Cream) 1 applic BID TOPICAL 11/21/17 12:00 12/15/17 09:00 (Prinivil) 20 mg DAILY PO 11/22/17 09:00 Future Hold (Lopressor) 12.5 mg Q12HR PO 11/21/17 10:00 Future Hold 11/21/17 20:32 (Colace Liq) 100 mg Q12HR PO 11/22/17 09:00 12/13/17 21:29 (Senna Liq) 8.8 mg BID NG 11/23/17 21:00 12/13/17 21:30 (Albuterol Neb) 2.5 mg Q2HR NEB PRN NEB 11/23/17 16:00 12/06/17 21:20 (Prevacid Odt) 30 mg DAILY NG 11/24/17 09:00 12/15/17 09:00 (Tears Naturale Opth Soln) 1 drop Q8HR EACH EYE 11/23/17 22:00 12/15/17 04:55 (Miralax) 17 gm BID NG 11/29/17 21:00 12/13/17 21:30 (Cathflo Activase Inj) 2 mg Q2H PRN INTRACATH 11/29/17 14:15 12/08/17 11:33 (NS Flush) DAILY IV FLUSH 11/30/17 09:00 12/14/17 09:00 (NS Flush) UNSCH PRN IV FLUSH 11/30/17 08:45 (Free Water) VOLUME: 300 ML Q8HR G-TUBE 11/30/17 14:00 12/15/17 04:55 (Tylenol 650 Mg/ 20 ml Liq) 650 mg Q6H PRN NG 11/30/17 09:00 12/07/17 04:52 (Vasotec Inj) 1.25 mg Q6H PRN IV PUSH 12/01/17 12:00 (Nitroglycerin 2% Oint) 2 inch Q6HR PRN TOPICAL 12/01/17 12:00 (Brethine Inj) 1 mg UNSCH PRN SQ 12/02/17 11:30 (Keppra Liq) 500 mg Q12HR NG 12/03/17 21:00 12/15/17 09:00 (Lactulose Liq) 30 ml Q6HR NG 12/03/17 12:00 12/14/17 05:27 (Mycostatin Liq) 5 ml QID SWISH-SWAL 12/03/17 13:00 12/15/17 09:00 (Effexor) 50 mg Q12H PO 12/03/17 16:00 12/15/17 03:48 (Desyrel) 50 mg HS PO 12/03/17 21:00 12/14/17 20:47 (Lovenox Inj) 70 mg Q12H SQ 12/06/17 14:00 12/15/17 03:52 (Coumadin) 7.5 mg DAILY@1600 PO 12/12/17 16:00 12/14/17 17:38 (Morphine Inj) 2 mg Q4H PRN IV PUSH 12/14/17 15:00 (Roxanol Liq) 10 mg Q4HR PRN NG 12/14/17 15:00 12/15/17 11:55 (Duoneb Neb) 1 ampule QID NEB NEB 12/14/17 20:00 12/15/17 11:05 Levofloxacin/ Dextrose 150 ml @ 100 mls/hr Q24H IV 12/15/17 09:15 UNV Pharmacy Profile Note 0 ml @ 0 mls/hr UNSCH OTHER 12/15/17 11:15 UNV Date of Insertion: Nov 30, 2017 Line: Central Venous Catheter Side: Left Location: Internal, Jugular A/P Assessment and Plan Large acute intraparenchymal hemorrhage involving the left parietal lobe Midline shift to the right by 9 mm. Subarachnoid hemorrhage and cerebral edema on the left side. Status post left parietal craniotomy for intracerebral hematoma evacuation, Left frontal gt hole placement for ventriculostomy by Dr. Womack. Left ventric removed 11/27. - Currently on levetiracetam 500 mg IV every 12 hours. - Morphine liquid as needed with IV morphine for breakthrough. - Venlafaxine 50 mill grams twice a day and trazodone 50 mg at night/home medication. - PT/ OT/ ST. Acute respiratory failure Status post percutaneous tracheostomy 12/02 #8 [place]. Has COPD and ongoing tobaccoism. Pulmonology consult appreciated. Repeat CXR with right basilar airspace disease. - Albuterol/ipratropium aerosols every 6 hours with albuterol aerosols every 2 hours as needed dyspnea. - Tobacco cessation. - Trial of Passy [place] valve per respiratory. - trach management per pulmonology. - IV Levaquin started 12/15. Acute pancreatitis/ choledocholithiasis/ History of celiac disease 11/21/17 s/p ERCP with sphincterotomy and balloon extraction, finding choledocholithiasis. GI signed off. - Resumed tube feedings with vital 1.5 goal 55 cc an hour per nutrition's recommendations . - Lansoprazole 30 mg daily for GI prophylaxis. - Continue docusate sodium 100 mg twice daily and senna 8.6 mg twice daily. Patient is on polyethylene glycol 17 g twice daily at home for constipation which is been continued along with lactulose 30 cc 4 times a day. Chronic pain On Morphine pump. - continue pain management as above. E. coli UTI Coag negative staph bacteremia. 11/19 -UA -pansensitive E. coli. 11/20 -blood cultures 2 -coag negative staph/staph epi pansensitive. ID consult appreciated. - hold ceftriaxone per infectious disease. DVT Right subclavian/axillary and brachial DVT. Left cephalic superficial thrombus/ brachial thrombus. - Start full anticoagulation 12/06 with Lovenox 70 mg bid, convert to Coumadin, d/c Lovenox when therapeutic. PPx: Lovenox Discharge Planning Needs rehab Julian Manjarrez DO Dec 15, 2017 12:51
--- NOTE | 2017-12-15 12:55 | HHI.PR ---
Subjective Remarks Awake and on a T Collar FIo2 30%. Can talk with PM Valve. No fever. Trach changed. Objective Vital Signs Date Time Temp Pulse Resp B/P (MAP) Pulse Ox O2 Delivery O2 Flow Rate FiO2 12/15/17 12:00 98.0 109 18 111/67 (82) 98 12/15/17 11:14 Venturi Mask 28 12/15/17 11:05 94 Trach Collar 4.00 12/15/17 08:00 98.3 96 18 117/73 (88) 100 12/15/17 07:43 99 T-piece 28 12/15/17 04:00 98.5 93 20 112/64 (80) 97 12/14/17 21:15 102 12/14/17 20:37 97 T-piece 4.00 28 12/14/17 20:14 97.4 92 18 114/63 (80) 99 12/14/17 16:00 99.1 99 18 106/53 (70) 99 I/O 12/14/17 12/14/17 12/14/17 12/15/17 12/15/17 12/15/17 07:00 15:00 23:00 07:00 15:00 23:00 Output Total 1500 ml 2425 ml 1600 ml Balance -1500 ml -2425 ml -1600 ml Output Urine Total 1500 ml 2425 ml 1600 ml # Bowel Movements 1 2 2 Result Diagram: 12/15/17 0746 12/15/17 0746 Objective Remarks GENERAL: This is a well-nourished, well-developed patient, in no apparent distress.HEENT: Clear throat. Neck: Trach in place and PM valve. CARDIOVASCULAR: Regular rate and rhythm without murmurs, gallops, or rubs. RESPIRATORY: Diffuse expiratory wheezes, diminished breath sounds bilaterally. GASTROINTESTINAL: Abdomen soft, non-tender,nondistended. Normal active bowel sounds MUSCULOSKELETAL: Extremities without clubbing, cyanosis, or edema. NEURO: Alert & Oriented x4 to person, place, time, situation.Weak on Right side. Assessment and Plan Assessment and Plan A/P Assessment and Plan Large acute intraparenchymal hemorrhage involving the left parietal lobe Midline shift to the right by 9 mm. Subarachnoid hemorrhage and cerebral edema on the left side. Status post left parietal craniotomy for intracerebral hematoma evacuation, Left frontal gt hole placement for ventriculostomy . - Currently on levetiracetam 500 mg IV every 12 hours. - Venlafaxine 50 mill grams twice a day and trazodone 50 mg at night/home medication. - PT/ OT/ ST. Acute respiratory failure. COPD Status post percutaneous tracheostomy 12/02 #6 [place] with no cuff. - Albuterol/ipratropium aerosols every 6 hours with albuterol aerosols every 2 hours as needed dyspnea. - Tobacco cessation. - Trial of Pass[place] valve as tolerated.Will Cap trach next week if stable. - Trach suction and Lavage Acute pancreatitis/ choledocholithiasis/ History of celiac disease 11/21/17 s/p ERCP with sphincterotomy and balloon extraction, finding choledocholithiasis. - Resumed tube feedings with vital 1.5 goal 55 cc an hour per nutrition's recommendations . - Lansoprazole 30 mg daily for GI prophylaxis. Chronic pain On Morphine pump. - continue pain management. E. coli UTI Coag negative staph bacteremia. 11/19 -UA -pansensitive E. coli. 11/20 -blood cultures 2 -coag negative staph/staph epi pansensitive. ID consult appreciated. - hold ceftriaxone per infectious disease. DVT Right subclavian/axillary and brachial DVT. Left cephalic superficial thrombus/ brachial thrombus. - Start full anticoagulation 12/06 with Lovenox 70 mg bid, convert to Coumadin, d/c Lovenox when therapeutic. Claudia Shaffer MD Dec 15, 2017 12:55
--- NOTE | 2017-12-15 14:22 | MB ---
cc: Claudia Shaffer MD DATE OF CONSULT: 12/14/2017 REASON FOR CONSULTATION: Tracheostomy management, history of respiratory failure. HISTORY OF PRESENT ILLNESS: This is a 62-year-old lady with history of fibromyalgia, chronic pain and history of celiac disease, with anxiety, was admitted for leg spasms and weakness. The patient apparently had taken morphine and was quite lethargic and had some weakness on the right side and she was transported to the emergency room, where a CT of the head was done. The CT head showed a large posterior parietal lobe hemorrhagic stroke, with edema of the brain. She was started on hyperosmolar therapy and admitted to the Intensive Care Unit. The patient had to be intubated for airway protection and subsequently taken to the OR by Neurosurgery for a left parietal craniectomy and evacuation of intracerebral hematoma and left bur ventriculostomy placed by Dr. Tse. Since then, the patient has been in the Intensive Care Unit and intubated and on ventilator support. She was initially hypotensive and received IV fluids and Levophed, and subsequently weaned off pressors. She was running fevers as well and was treated for pneumonia. Due to prolonged ventilator support, the patient had to undergo tracheostomy, as well as PEG tube placement. She was started on tube feedings, which she was tolerating well. Her temperatures kept fluctuating and she was treated with antibiotics, and was then weaned to pressor support ventilation on 11/30. Over the next 2 days, the patient was weaned down and a tracheostomy was placed on 12/02 and a PEG tube placed on 12/04. She also was placed on anticoagulation for prophylaxis of DVT. Over the next 5 days, the patient was fully off the ventilator on a T piece at 28-30% and was on Coumadin as well and was therapeutic with her INR. The patient was then transferred to the 3rd floor for further management and rehab. She is presently awake. She is cooperative, responds to questions and moves her right side quite well. The most recent chest x-ray showed an infiltrate in the left base. Her present medications also include Coumadin 7.5 milligrams a day, as well as Lovenox 70 milligrams subcutaneous every 12 hours, and also on Prevacid 30 milligrams daily, nebulizer albuterol solution four times a day as needed, Effexor 50 milligrams every 12 hours, Keppra 500 milligrams every 12 hours. PAST MEDICAL HISTORY: The patient's past history has been significant for: 1. Chronic pain. 2. Fibromyalgia. 3. Celiac disease. 4. She had C4-C5 fusion done in the past and a morphine pump was placed. 5. Intracerebral hemorrhage with right hemiparesis. 6. Basilar pneumonia. 7. Chronic obstructive pulmonary disease. 8. Respiratory failure, resolving. 9. Status post tracheostomy and percutaneous endoscopic gastrostomy tube placement. 10. Urinary tract infection. 11. Deep vein thrombosis, right axillary and brachial and left cephalic superficial thrombus. MEDICATION LIST: Was reviewed from the chart. HABITS: The patient smoked 1 pack per day for over 30 years. No significant alcohol use. FAMILY HISTORY: Significant for coronary artery disease. ALLERGIES: TO SULFA, TOPIRAMATE, PENICILLIN, KETOROLAC, IBUPROFEN, GABAPENTIN, ERYTHROMYCIN, DICLOFENAC, BUPROPION. SYSTEM REVIEW: Unable to obtain since she has a trach tube in place with a T-bar. PHYSICAL EXAMINATION: GENERAL: This thinly built, middle-aged white female is pale, alert and on a T-bar. VITAL SIGNS: Blood pressure 118/70, pulse 90, respiration 16, temperature is 98. HEENT: Head normocephalic. Pupils are reactive. Tongue moist. Nasal mucosa edematous. Throat is mildly injected. Ears, no inflammation. NECK: Supple, no bruits, no thyroid enlargement, no lymphadenopathy. Trach tube in place. CHEST: Equal movements. Decreased breast sounds of the bases. No crackles. CARDIOVASCULAR: Heart sounds are regular, S1, S2. No murmur. ABDOMEN: Soft, scaphoid, with a PEG tube in place. Bowel sounds active. EXTREMITIES: Reveal weakness of the right side and Babinski is negative. The right lower extremity is sluggish as well, but withdraws. Moves her left limbs spontaneously. SKIN: Dry and cool. RECTAL: Deferred. IMPRESSION: 1. Intracerebral hemorrhage with right hemiparesis. 2. Basilar pneumonia. 3. Chronic obstructive pulmonary disease. 4. Respiratory failure, resolving. 5. Status post tracheostomy and percutaneous endoscopic gastrostomy tube placement. 6. Urinary tract infection. 7. Deep vein thrombosis, right axillary and brachial and left cephalic superficial thrombus. 8. History of celiac disease. 9. Fibromyalgia. PLAN: The patient will be maintained T-bar at 28%. Nebulized DuoNeb solution every 6 hours. Continue the anticoagulation to get INR therapeutic. Antibiotic therapy per Infectious Disease service if indicated. We will also get a chest x-ray this week and trach vent suctioning, tracheal toilet to be done. A Passy-Sumaya valve will be placed in the a.m. and physical therapy continued on a daily basis. Thank you, Dr. Manjarrez, for this consultation. V. MD BREN Weinstein/ELAINA , 06:39 PM , 07:59 PM
[2017-12-15] MEDS: WARFARIN SOD 7.5 MG TAB PO SCH (15:00)
[2017-12-15] MEDS: LEVOFLOXACIN 750 MG PREMIX INJ 150 ML IV SCH (15:05)
[2017-12-15] MEDS ORDERED: WARFARIN SOD 1 MG TAB PO ONE (17:00)
[2017-12-15] MEDS: traZODone HCL 50 MG TAB PO SCH (21:52)
[2017-12-16] VITALS (10 sets, daily range): BP systolic 111–128; BP diastolic 58–82; PULSE 91–141; RESP 18–20; TEMP 97.3–99; O2SAT 97–100
[2017-12-16] MEDS: VENLAFAXINE HCL 25 MG TAB PO SCH ×2 (04:09→16:32)
[2017-12-16] MEDS: ENOXAPARIN SODIUM 80 MG/0.8 ML SYRINGE SQ SCH ×2 (04:09→13:30)
[2017-12-16] MEDS: ARTIFICIAL TEARS OPTH SOLN 15 ML BTL EACH EYE SCH ×3 (05:21→22:36)
[2017-12-16] MEDS: FREE WATER G-TUBE SCH ×3 (05:21→22:00)
[2017-12-16] MEDS: LACTULOSE SYRUP 20 GM/30 ML CUP NG SCH ×3 (05:21→12:00)
[2017-12-16 07:19] LABS: INTERNATIONAL NORMALIZED RATIO 1.6 RATIO; PROTHROMBIN TIME - PATIENT 15.9 SEC (9.8-11.6)
[2017-12-16] MEDS: DOCUSATE SODIUM 100 MG/10 ML UDC PO SCH ×2 (08:30→22:35)
[2017-12-16] MEDS: SENNOSIDES SYRUP 8.8 MG/5 ML CUP NG SCH ×2 (08:30→22:35)
[2017-12-16] MEDS: POLYETHYLENE GLYCOL 17 GM PKG NG SCH (08:30)
[2017-12-16] MEDS: LANSOPRAZOLE SOLUTAB 30 MG TAB NG SCH (08:34)
[2017-12-16] MEDS: NYSTATIN SUSP 500,000 U/5 ML CUP SWISH-SWAL SCH ×4 (08:34→22:34)
[2017-12-16] MEDS: levETIRAcetam 500 MG/5 ML UDC NG SCH (08:34)
[2017-12-16] MEDS: TRIAMCINOLONE ACETONIDE 0.1% CREAM 15 GM TOPICAL SCH ×2 (08:37→22:36)
[2017-12-16] MEDS: SODIUM CHLORIDE 0.9% FLUSH 10 ML FLUSH IV FLUSH SCH ×3 (08:42→22:35)
[2017-12-16] MEDS: RESP: ALBUTEROL 2.5 MG/IPRATROPIUM 0.5 MG NEB (SCH) NEB ×4 (08:56→20:21)
[2017-12-16] MEDS: LEVOFLOXACIN 750 MG PREMIX INJ 150 ML IV SCH (13:30)
[2017-12-16] MEDS: MORPHINE SULFATE ORAL SOLN 10 MG/0.5 ML SYRINGE NG PRN (13:40)
[2017-12-16] MEDS ORDERED: PILL SPLITTER OTHER PRN (15:00)
[2017-12-16] MEDS ORDERED: ACETAMINOPHEN 650 MG/20.3 ML UDC PO PRN (15:00)
--- NOTE | 2017-12-16 15:04 | HHI.PR ---
Subjective Remarks The pt was sitting up in a chair. She felt great. She wanted to work with therapy. She denied shortness of breath or pain. Discussed with nursing. Objective Vitals Vital Signs Date Time Temp Pulse Resp B/P (MAP) Pulse Ox O2 Delivery O2 Flow Rate FiO2 12/16/17 12:00 98.1 91 18 117/82 (94) 100 12/16/17 09:12 99 Trach Collar 28 12/16/17 08:00 97 12/16/17 08:00 97.3 92 18 111/63 (79) 100 12/16/17 04:00 99.0 92 19 118/58 (78) 99 12/16/17 01:00 106 12/16/17 00:00 99.0 101 19 112/69 (83) 100 12/15/17 22:15 107 12/15/17 20:00 99.1 116 19 111/63 (79) 99 12/15/17 19:48 97 T-piece 4.00 28 12/15/17 16:00 99 12/15/17 16:00 97.9 112 18 135/72 (93) 98 I/O 12/15/17 12/15/17 12/15/17 12/16/17 12/16/17 12/16/17 07:00 15:00 23:00 07:00 15:00 23:00 Intake Total 960 ml Output Total 1600 ml 1500 ml 4050 ml 2250 ml Balance -1600 ml -1500 ml -3090 ml -2250 ml Intake Oral 960 ml Output Urine Total 1600 ml 1500 ml 4050 ml 2250 ml # Voids 1 # Bowel Movements 2 Result Diagram: 12/15/17 0746 12/15/17 0746 Imaging Last Impressions Chest X-Ray 12/15/17 0600 Signed Impressions: Service Date/Time: Friday, December 15, 2017 06:40 - CONCLUSION: 1. Acute right basilar airspace disease. 2. Subtotal resolution of left basilar airspace disease. 3. Stable tracheostomy tube. Jaspreet Meng MD Abdomen X-Ray 12/03/17 0000 Signed Impressions: Service Date/Time: Sunday, December 03, 2017 10:38 - CONCLUSION: No significant small or large bowel loop dilation. Anurag Carrion MD Head CT 11/26/17 0000 Signed Impressions: Service Date/Time: Monday, November 27, 2017 04:18 - CONCLUSION: Decreased pneumocephalus, stable intracranial intra-axial extra-axial hemorrhage and left parietal edema, with postsurgical changes and midline shift. Ariel Nath MD Upper Extremity Ultrasound 11/25/17 0000 Signed Impressions: Service Date/Time: Saturday, November 25, 2017 18:56 - CONCLUSION: Positive for deep venous thrombosis bilateral extremities, right worse than left. Anurag Carrion MD Lower Extremity Ultrasound 11/25/17 0000 Signed Impressions: Service Date/Time: Saturday, November 25, 2017 17:50 - CONCLUSION: Negative for deep venous thrombosis bilateral lower extremity. Anurag Carrion MD Abdomen/Pelvis CT 11/21/17 0000 Signed Impressions: Service Date/Time: Tuesday, November 21, 2017 21:37 - CONCLUSION: 1. No evidence to indicate pancreatitis. 2. Multiple stones in the gallbladder. 3. Multiple bilateral renal calculi.. 4. No significant changes compared to the prior exam. Meir Donnelly MD GI Procedure 11/20/17 0000 Signed Impressions: Service Date/Time: Monday, November 20, 2017 16:40 - CONCLUSION: ERCP as above. Jose Echevarria MD Objective Remarks GENERAL: Resting comfortably. SKIN: Warm and dry. HEAD: Wounds healing well. EYES: No scleral icterus. No injection or drainage. Pupils bilaterally 2 mm reactive. NECK: Supple, trachea midline. No JVD. Tracheostomy site is clean dry and intact without bleeding. CARDIOVASCULAR: NL S1S2. Without murmurs, gallops, or rubs. No JVD. RESPIRATORY: Breath sounds equal bilaterally. No accessory muscle use. No wheezing, good air entry. GASTROINTESTINAL: Abdomen soft, non-tender, nondistended. Subcutaneous morphine pump in the right upper quadrant. MUSCULOSKELETAL: Warm, Well perfused. No edema. NEURO: Pupils equal, round, reactive. No movement right upper extremity. Withdraws to pain right lower extremity. Spontaneous moving left upper and lower extremity. PSYCH: Mood and affect appropriate. Medications and IVs Current Medications Medications (Trade) Dose Ordered Sig/Rachel Route Start Time Stop Time Status Last Admin (NS Flush) 2 ml UNSCH PRN IV FLUSH 11/19/17 04:45 (NS Flush) 2 ml BID IV FLUSH 11/19/17 09:00 12/16/17 08:42 (Zofran Inj) 4 mg Q6H PRN IVP 11/19/17 04:45 (Narcan Inj) 0.4 mg UNSCH PRN IV PUSH 11/19/17 04:45 (Buspar) 30 mg BID PO 11/20/17 09:00 Future Hold 11/21/17 20:28 (Fioricet 325-50-40) 1 tab Q4H PRN PO 11/20/17 05:30 Future Hold 11/20/17 20:33 (Aristocort 0.1% Cream) 1 applic BID TOPICAL 11/21/17 12:00 12/16/17 08:37 (Prinivil) 20 mg DAILY PO 11/22/17 09:00 Future Hold (Lopressor) 12.5 mg Q12HR PO 11/21/17 10:00 Future Hold 11/21/17 20:32 (Colace Liq) 100 mg Q12HR PO 11/22/17 09:00 12/13/17 21:29 (Senna Liq) 8.8 mg BID NG 11/23/17 21:00 12/13/17 21:30 (Albuterol Neb) 2.5 mg Q2HR NEB PRN NEB 11/23/17 16:00 12/06/17 21:20 (Tears Naturale Opth Soln) 1 drop Q8HR EACH EYE 11/23/17 22:00 12/16/17 13:30 (Cathflo Activase Inj) 2 mg Q2H PRN INTRACATH 11/29/17 14:15 12/08/17 11:33 (NS Flush) DAILY IV FLUSH 11/30/17 09:00 12/14/17 09:00 (NS Flush) UNSCH PRN IV FLUSH 11/30/17 08:45 (Free Water) VOLUME: 300 ML Q8HR G-TUBE 11/30/17 14:00 12/16/17 05:21 (Vasotec Inj) 1.25 mg Q6H PRN IV PUSH 12/01/17 12:00 (Nitroglycerin 2% Oint) 2 inch Q6HR PRN TOPICAL 12/01/17 12:00 (Brethine Inj) 1 mg UNSCH PRN SQ 12/02/17 11:30 (Mycostatin Liq) 5 ml QID SWISH-SWAL 12/03/17 13:00 12/16/17 13:30 (Effexor) 50 mg Q12H PO 12/03/17 16:00 12/16/17 04:09 (Desyrel) 50 mg HS PO 12/03/17 21:00 12/15/17 21:52 (Lovenox Inj) 70 mg Q12H SQ 12/06/17 14:00 12/16/17 13:30 (Coumadin) 7.5 mg DAILY@1600 PO 12/12/17 16:00 12/15/17 15:00 (Morphine Inj) 2 mg Q4H PRN IV PUSH 12/14/17 15:00 (Duoneb Neb) 1 ampule QID NEB NEB 12/14/17 20:00 12/16/17 12:00 Levofloxacin/ Dextrose 150 ml @ 100 mls/hr Q24H IV 12/15/17 13:00 12/16/17 13:30 Pharmacy Profile Note 0 ml @ 0 mls/hr UNSCH OTHER 12/15/17 11:15 (Tylenol 650 Mg/ 20 ml Liq) 650 mg Q6H PRN PO 12/16/17 15:00 (Lactulose Liq) 30 ml Q6HR PO 12/16/17 18:00 (Prevacid Odt) 30 mg DAILY PO 12/17/17 09:00 (Keppra Liq) 500 mg Q12HR PO 12/16/17 21:00 (Roxanol Liq) 10 mg Q4HR PRN PO 12/16/17 14:45 (Miralax) 17 gm BID PO 12/16/17 21:00 (Coumadin) 0.5 mg ONCE ONCE PO 12/16/17 16:00 12/16/17 16:01 (Pill Splitter) 1 ea UNSCH PRN OTHER 12/16/17 15:00 Date of Insertion: Nov 30, 2017 Line: Central Venous Catheter Side: Left Location: Internal, Jugular A/P Assessment and Plan Large acute intraparenchymal hemorrhage involving the left parietal lobe Midline shift to the right by 9 mm. Subarachnoid hemorrhage and cerebral edema on the left side. Status post left parietal craniotomy for intracerebral hematoma evacuation, Left frontal gt hole placement for ventriculostomy by Dr. Womack. Left ventric removed 11/27. - Currently on levetiracetam 500 mg every 12 hours. - Morphine liquid as needed with IV morphine for breakthrough. - Venlafaxine 50 mill grams twice a day and trazodone 50 mg at night/home medication. - PT/ OT/ ST. Acute respiratory failure Status post percutaneous tracheostomy 12/02 #8 Malachi. Has COPD and ongoing tobaccoism. Pulmonology consult appreciated. Repeat CXR with right basilar airspace disease. - Albuterol/ipratropium aerosols every 6 hours with albuterol aerosols every 2 hours as needed dyspnea. - Tobacco cessation. - Trial of Passy Sumaya valve per respiratory. - trach management per pulmonology. Possible decannulation in a few days. - IV Levaquin started 12/15. Acute pancreatitis/ choledocholithiasis/ History of celiac disease 11/21/17 s/p ERCP with sphincterotomy and balloon extraction, finding choledocholithiasis. GI signed off. - Resumed tube feedings with vital 1.5 goal 55 cc an hour per nutrition's recommendations . - Lansoprazole 30 mg daily for GI prophylaxis. - Continue docusate sodium 100 mg twice daily and senna 8.6 mg twice daily. Patient is on polyethylene glycol 17 g twice daily at home for constipation which is been continued along with lactulose 30 cc 4 times a day. Chronic pain On Morphine pump. - continue pain management as above. E. coli UTI Coag negative staph bacteremia. 11/19 -UA -pansensitive E. coli. 11/20 -blood cultures 2 -coag negative staph/staph epi pansensitive. ID consult appreciated. - hold ceftriaxone per infectious disease. On Levaquin for PNA as above. DVT Right subclavian/axillary and brachial DVT. Left cephalic superficial thrombus/ brachial thrombus. - Start full anticoagulation 12/06 with Lovenox 70 mg bid, convert to Coumadin, d/c Lovenox when therapeutic. PPx: Lovenox Discharge Planning Needs rehab Julian Manjarrez DO Dec 16, 2017 15:04
--- NOTE | 2017-12-16 15:05 | HHI.PR ---
Subjective Remarks Awake and off O2 . Trach capped. and talking No fever. Moving right arm and leg better Objective Vital Signs Date Time Temp Pulse Resp B/P (MAP) Pulse Ox O2 Delivery O2 Flow Rate FiO2 12/16/17 12:00 98.1 91 18 117/82 (94) 100 12/16/17 09:12 99 Trach Collar 28 12/16/17 08:00 97 12/16/17 08:00 97.3 92 18 111/63 (79) 100 12/16/17 04:00 99.0 92 19 118/58 (78) 99 12/16/17 01:00 106 12/16/17 00:00 99.0 101 19 112/69 (83) 100 12/15/17 22:15 107 12/15/17 20:00 99.1 116 19 111/63 (79) 99 12/15/17 19:48 97 T-piece 4.00 28 12/15/17 16:00 99 12/15/17 16:00 97.9 112 18 135/72 (93) 98 I/O 12/15/17 12/15/17 12/15/17 12/16/17 12/16/17 12/16/17 07:00 15:00 23:00 07:00 15:00 23:00 Intake Total 960 ml Output Total 1600 ml 1500 ml 4050 ml 2250 ml Balance -1600 ml -1500 ml -3090 ml -2250 ml Intake Oral 960 ml Output Urine Total 1600 ml 1500 ml 4050 ml 2250 ml # Voids 1 # Bowel Movements 2 Result Diagram: 12/15/17 0746 12/15/17 0746 Objective Remarks GENERAL: This is a well-nourished, well-developed patient, in no apparent distress.HEENT: Clear throat. Neck: Trach in place . CARDIOVASCULAR: Regular rate and rhythm without murmurs, gallops, or rubs. RESPIRATORY: Occ wheezes, diminished breath sounds bilaterally. GASTROINTESTINAL: Abdomen soft, non-tender,nondistended. Normal active bowel sounds MUSCULOSKELETAL: Extremities without clubbing, cyanosis, or edema. NEURO: Alert & Oriented x4 to person, place, time, situation.Weak on Right side. Assessment and Plan Assessment and Plan A/P Assessment and Plan Large acute intraparenchymal hemorrhage involving the left parietal lobe Midline shift to the right by 9 mm. Subarachnoid hemorrhage and cerebral edema on the left side. Status post left parietal craniotomy for intracerebral hematoma evacuation, Left frontal gt hole placement for ventriculostomy . - Currently on levetiracetam 500 mg IV every 12 hours. - Venlafaxine 50 mill grams twice a day and trazodone 50 mg at night/home medication. - PT/ OT/ ST. Acute respiratory failure. COPD Status post percutaneous tracheostomy 12/02 #6 Shiley with no cuff. - Albuterol/ipratropium aerosols every 6 hours with albuterol aerosols every 2 hours as needed dyspnea. - Tobacco cessation. - Will Cap trach till next week if stable. - Trach suction and Lavage PRN Acute pancreatitis/ choledocholithiasis/ History of celiac disease 11/21/17 s/p ERCP with sphincterotomy and balloon extraction, finding choledocholithiasis. - Resumed tube feedings with vital 1.5 goal 55 cc an hour per nutrition's recommendations . - Lansoprazole 30 mg daily for GI prophylaxis. Chronic pain On Morphine pump. - continue pain management. E. coli UTI Coag negative staph bacteremia. 11/19 -UA -pansensitive E. coli. 11/20 -blood cultures 2 -coag negative staph/staph epi pansensitive. ID consult appreciated. - hold ceftriaxone per infectious disease. DVT Right subclavian/axillary and brachial DVT. Left cephalic superficial thrombus/ brachial thrombus. - Start full anticoagulation 12/06 with Lovenox 70 mg bid, convert to Coumadin, d/c Lovenox when therapeutic. Claudia Shaffer MD Dec 16, 2017 15:05
[2017-12-16] MEDS ORDERED: WARFARIN SOD 1 MG TAB PO ONE (16:00)
[2017-12-16] MEDS: LACTULOSE SYRUP 20 GM/30 ML CUP PO SCH (16:08)
[2017-12-16] MEDS: WARFARIN SOD 7.5 MG TAB PO SCH (16:32)
[2017-12-16] MEDS: MORPHINE SULFATE ORAL SOLN 10 MG/0.5 ML SYRINGE PO PRN (22:34)
[2017-12-16] MEDS: traZODone HCL 50 MG TAB PO SCH (22:35)
[2017-12-16] MEDS: POLYETHYLENE GLYCOL 17 GM PKG PO SCH (22:35)
[2017-12-16] MEDS: levETIRAcetam 500 MG/5 ML UDC PO SCH (22:35)
[2017-12-17] VITALS (11 sets, daily range): BP systolic 113–147; BP diastolic 67–84; PULSE 99–117; RESP 18–20; TEMP 97.6–98.4; O2SAT 97–98
[2017-12-17] MEDS: VENLAFAXINE HCL 25 MG TAB PO SCH ×2 (03:37→16:08)
[2017-12-17] MEDS: ENOXAPARIN SODIUM 80 MG/0.8 ML SYRINGE SQ SCH ×2 (03:37→14:11)
[2017-12-17] MEDS: LACTULOSE SYRUP 20 GM/30 ML CUP PO SCH ×4 (05:54→18:00)
[2017-12-17] MEDS: ARTIFICIAL TEARS OPTH SOLN 15 ML BTL EACH EYE SCH ×3 (05:54→20:17)
[2017-12-17] MEDS: FREE WATER G-TUBE SCH ×3 (05:54→22:00)
[2017-12-17] MEDS: RESP: ALBUTEROL 2.5 MG/IPRATROPIUM 0.5 MG NEB (SCH) NEB ×4 (08:16→19:24)
[2017-12-17 08:55] LABS: INTERNATIONAL NORMALIZED RATIO 2.4 RATIO; PROTHROMBIN TIME - PATIENT 24.2 SEC (9.8-11.6)
[2017-12-17] MEDS: SODIUM CHLORIDE 0.9% FLUSH 10 ML FLUSH IV FLUSH SCH ×3 (09:00→20:16)
[2017-12-17] MEDS: SENNOSIDES SYRUP 8.8 MG/5 ML CUP NG SCH ×2 (09:00→20:16)
[2017-12-17] MEDS: POLYETHYLENE GLYCOL 17 GM PKG PO SCH ×2 (09:00→20:16)
[2017-12-17] MEDS: DOCUSATE SODIUM 100 MG/10 ML UDC PO SCH ×2 (09:00→20:15)
[2017-12-17] MEDS: NYSTATIN SUSP 500,000 U/5 ML CUP SWISH-SWAL SCH ×4 (10:32→20:15)
[2017-12-17] MEDS: levETIRAcetam 500 MG/5 ML UDC PO SCH ×2 (10:33→20:15)
[2017-12-17] MEDS: MORPHINE SULFATE ORAL SOLN 10 MG/0.5 ML SYRINGE PO PRN ×2 (10:35→20:17)
[2017-12-17] MEDS: LANSOPRAZOLE SOLUTAB 30 MG TAB PO SCH (10:42)
[2017-12-17] MEDS: LEVOFLOXACIN 750 MG PREMIX INJ 150 ML IV SCH (14:05)
[2017-12-17] MEDS: TRIAMCINOLONE ACETONIDE 0.1% CREAM 15 GM TOPICAL SCH ×2 (14:13→20:18)
--- NOTE | 2017-12-17 14:13 | HHI.PR ---
Subjective Remarks The patient was resting in bed comfortably. She wanted the trach removed soon. She requested a popsicle. She has been eating food without difficulty. She had no acute complaints. Discussed with nursing. Objective Vitals Vital Signs Date Time Temp Pulse Resp B/P (MAP) Pulse Ox O2 Delivery O2 Flow Rate FiO2 12/17/17 12:00 98.4 104 18 134/77 (96) 97 12/17/17 11:58 97 21 12/17/17 08:00 98.0 108 19 113/67 (82) 97 12/17/17 05:25 97.8 106 20 115/84 (94) 97 12/17/17 04:06 104 12/17/17 00:36 98.2 116 20 118/74 (89) 97 12/17/17 00:07 108 12/16/17 20:30 97.6 114 20 128/71 (90) 97 12/16/17 20:24 98 12/16/17 20:01 111 12/16/17 16:00 141 12/16/17 16:00 97.8 104 18 117/76 (90) 99 I/O 12/16/17 12/16/17 12/16/17 12/17/17 12/17/17 12/17/17 07:00 15:00 23:00 07:00 15:00 23:00 Intake Total 960 ml Output Total 4050 ml 2700 ml 500 ml Balance -3090 ml -2700 ml -500 ml Intake Oral 960 ml Output Urine Total 4050 ml 2700 ml 500 ml # Voids 1 # Bowel Movements 0 1 Result Diagram: 12/15/17 0746 12/15/17 0746 Imaging Last Impressions Chest X-Ray 12/15/17 0600 Signed Impressions: Service Date/Time: Friday, December 15, 2017 06:40 - CONCLUSION: 1. Acute right basilar airspace disease. 2. Subtotal resolution of left basilar airspace disease. 3. Stable tracheostomy tube. Jaspreet Meng MD Abdomen X-Ray 12/03/17 0000 Signed Impressions: Service Date/Time: Sunday, December 03, 2017 10:38 - CONCLUSION: No significant small or large bowel loop dilation. Anurag Carrion MD Head CT 11/26/17 0000 Signed Impressions: Service Date/Time: Monday, November 27, 2017 04:18 - CONCLUSION: Decreased pneumocephalus, stable intracranial intra-axial extra-axial hemorrhage and left parietal edema, with postsurgical changes and midline shift. Ariel Nath MD Upper Extremity Ultrasound 11/25/17 0000 Signed Impressions: Service Date/Time: Saturday, November 25, 2017 18:56 - CONCLUSION: Positive for deep venous thrombosis bilateral extremities, right worse than left. Anurag Carrion MD Lower Extremity Ultrasound 11/25/17 0000 Signed Impressions: Service Date/Time: Saturday, November 25, 2017 17:50 - CONCLUSION: Negative for deep venous thrombosis bilateral lower extremity. Anurag Carrion MD Abdomen/Pelvis CT 11/21/17 0000 Signed Impressions: Service Date/Time: Tuesday, November 21, 2017 21:37 - CONCLUSION: 1. No evidence to indicate pancreatitis. 2. Multiple stones in the gallbladder. 3. Multiple bilateral renal calculi.. 4. No significant changes compared to the prior exam. Meir Donnelly MD GI Procedure 11/20/17 0000 Signed Impressions: Service Date/Time: Monday, November 20, 2017 16:40 - CONCLUSION: ERCP as above. Jose Echevarria MD Objective Remarks GENERAL: Resting comfortably. SKIN: Warm and dry. HEAD: Wounds healing well. EYES: No scleral icterus. No injection or drainage. Pupils bilaterally 2 mm reactive. NECK: Supple, trachea midline. No JVD. Tracheostomy site is clean dry and intact without bleeding. CARDIOVASCULAR: NL S1S2. Without murmurs, gallops, or rubs. No JVD. RESPIRATORY: Breath sounds equal bilaterally. No accessory muscle use. No wheezing, good air entry. GASTROINTESTINAL: Abdomen soft, non-tender, nondistended. PEG tube in place, site is clean. MUSCULOSKELETAL: Warm, Well perfused. No edema. NEURO: Pupils equal, round, reactive. No movement right upper extremity. Withdraws to pain right lower extremity. Spontaneous moving left upper and lower extremity. PSYCH: Mood and affect appropriate. Medications and IVs Current Medications Medications (Trade) Dose Ordered Sig/Rachel Route Start Time Stop Time Status Last Admin (NS Flush) 2 ml UNSCH PRN IV FLUSH 11/19/17 04:45 (NS Flush) 2 ml BID IV FLUSH 11/19/17 09:00 3/4/18 09:00 (Zofran Inj) 4 mg Q6H PRN IVP 11/19/17 04:45 (Narcan Inj) 0.4 mg UNSCH PRN IV PUSH 11/19/17 04:45 (Buspar) 30 mg BID PO 11/20/17 09:00 Future Hold 11/21/17 20:28 (Fioricet 325-50-40) 1 tab Q4H PRN PO 11/20/17 05:30 Future Hold 11/20/17 20:33 (Aristocort 0.1% Cream) 1 applic BID TOPICAL 11/21/17 12:00 12/16/17 22:36 (Prinivil) 20 mg DAILY PO 11/22/17 09:00 Future Hold (Lopressor) 12.5 mg Q12HR PO 11/21/17 10:00 Future Hold 11/21/17 20:32 (Colace Liq) 100 mg Q12HR PO 11/22/17 09:00 12/16/17 22:35 (Senna Liq) 8.8 mg BID NG 11/23/17 21:00 12/16/17 22:35 (Albuterol Neb) 2.5 mg Q2HR NEB PRN NEB 11/23/17 16:00 12/06/17 21:20 (Tears Naturale Opth Soln) 1 drop Q8HR EACH EYE 11/23/17 22:00 12/16/17 22:36 (Cathflo Activase Inj) 2 mg Q2H PRN INTRACATH 11/29/17 14:15 12/08/17 11:33 (NS Flush) DAILY IV FLUSH 11/30/17 09:00 12/17/17 09:00 (NS Flush) UNSCH PRN IV FLUSH 11/30/17 08:45 (Free Water) VOLUME: 300 ML Q8HR G-TUBE 11/30/17 14:00 12/16/17 05:21 (Vasotec Inj) 1.25 mg Q6H PRN IV PUSH 12/01/17 12:00 (Nitroglycerin 2% Oint) 2 inch Q6HR PRN TOPICAL 12/01/17 12:00 (Brethine Inj) 1 mg UNSCH PRN SQ 12/02/17 11:30 (Mycostatin Liq) 5 ml QID SWISH-SWAL 12/03/17 13:00 12/17/17 10:32 (Effexor) 50 mg Q12H PO 12/03/17 16:00 12/17/17 03:37 (Desyrel) 50 mg HS PO 12/03/17 21:00 12/16/17 22:35 (Lovenox Inj) 70 mg Q12H SQ 12/06/17 14:00 12/17/17 03:37 (Coumadin) 7.5 mg DAILY@1600 PO 12/12/17 16:00 12/16/17 16:32 (Morphine Inj) 2 mg Q4H PRN IV PUSH 12/14/17 15:00 (Duoneb Neb) 1 ampule QID NEB NEB 12/14/17 20:00 12/17/17 11:58 Levofloxacin/ Dextrose 150 ml @ 100 mls/hr Q24H IV 12/15/17 13:00 12/16/17 13:30 Pharmacy Profile Note 0 ml @ 0 mls/hr UNSCH OTHER 12/15/17 11:15 (Tylenol 650 Mg/ 20 ml Liq) 650 mg Q6H PRN PO 12/16/17 15:00 (Lactulose Liq) 30 ml Q6HR PO 12/16/17 18:00 (Prevacid Odt) 30 mg DAILY PO 12/17/17 09:00 12/17/17 10:42 (Keppra Liq) 500 mg Q12HR PO 12/16/17 21:00 12/17/17 10:33 (Roxanol Liq) 10 mg Q4HR PRN PO 12/16/17 14:45 12/17/17 10:35 (Miralax) 17 gm BID PO 12/16/17 21:00 12/16/17 22:35 (Pill Splitter) 1 ea UNSCH PRN OTHER 12/16/17 15:00 Date of Insertion: Nov 30, 2017 Line: Central Venous Catheter Side: Left Location: Internal, Jugular A/P Assessment and Plan Large acute intraparenchymal hemorrhage involving the left parietal lobe Midline shift to the right by 9 mm. Subarachnoid hemorrhage and cerebral edema on the left side. Status post left parietal craniotomy for intracerebral hematoma evacuation, Left frontal gt hole placement for ventriculostomy by Dr. Womack. - Currently on levetiracetam 500 mg every 12 hours. - Morphine liquid as needed with IV morphine for breakthrough. - Venlafaxine 50 mill grams twice a day and trazodone 50 mg at night/home medication. - PT/ OT/ ST. Acute respiratory failure Status post percutaneous tracheostomy 12/02 #8 Malachi. Has COPD and ongoing tobaccoism. Pulmonology consult appreciated. Repeat CXR with right basilar airspace disease. - Albuterol/ipratropium aerosols every 6 hours with albuterol aerosols every 2 hours as needed dyspnea. - Tobacco cessation. - Trial of [place] valve per respiratory. - trach management per pulmonology. Possible decannulation in a few days. - IV Levaquin started 12/15. Continue. Acute pancreatitis/ choledocholithiasis/ History of celiac disease 11/21/17 s/p ERCP with sphincterotomy and balloon extraction, finding choledocholithiasis. GI signed off. - d/c tube feeds. Regular diet per speech therapy. - Lansoprazole 30 mg daily for GI prophylaxis. - Continue docusate sodium 100 mg twice daily and senna 8.6 mg twice daily. Patient is on polyethylene glycol 17 g twice daily at home for constipation which is been continued along with lactulose 30 cc 4 times a day. - will need PEG tube removed by GI eventually, Chronic pain On Morphine pump. - continue pain management as above. E. coli UTI Coag negative staph bacteremia. 11/19 -UA -pansensitive E. coli. 11/20 -blood cultures 2 -coag negative staph/staph epi pansensitive. ID consult appreciated. - hold ceftriaxone per infectious disease. On Levaquin for PNA as above. DVT Right subclavian/axillary and brachial DVT. Left cephalic superficial thrombus/ brachial thrombus. - d/c Lovenox, INR s therapeutic on Coumadin. PPx: Coumadin Discharge Planning Needs rehab Julian Manjarrez DO Dec 17, 2017 14:13
--- NOTE | 2017-12-17 14:19 | HHI.PR ---
Subjective Remarks Alert and off O2 . Trach capped. and talking. Overall better. No fever. Moving right arm and leg better Objective Vital Signs Date Time Temp Pulse Resp B/P (MAP) Pulse Ox O2 Delivery O2 Flow Rate FiO2 12/17/17 12:00 98.4 104 18 134/77 (96) 97 12/17/17 11:58 97 21 12/17/17 08:00 98.0 108 19 113/67 (82) 97 12/17/17 05:25 97.8 106 20 115/84 (94) 97 12/17/17 04:06 104 12/17/17 00:36 98.2 116 20 118/74 (89) 97 12/17/17 00:07 108 12/16/17 20:30 97.6 114 20 128/71 (90) 97 12/16/17 20:24 98 12/16/17 20:01 111 12/16/17 16:00 141 12/16/17 16:00 97.8 104 18 117/76 (90) 99 I/O 12/16/17 12/16/17 12/16/17 12/17/17 12/17/17 12/17/17 07:00 15:00 23:00 07:00 15:00 23:00 Intake Total 960 ml Output Total 4050 ml 2700 ml 500 ml Balance -3090 ml -2700 ml -500 ml Intake Oral 960 ml Output Urine Total 4050 ml 2700 ml 500 ml # Voids 1 # Bowel Movements 0 1 Result Diagram: 12/15/17 0746 12/15/17 0746 Objective Remarks GENERAL: This is a well-nourished, well-developed patient, in no apparent distress.HEENT: Clear throat. Neck: Trach in place and capped . CARDIOVASCULAR: Regular rate and rhythm without murmurs, gallops, or rubs. RESPIRATORY: No wheeze and diminished breath sounds bilaterally. GASTROINTESTINAL: Abdomen soft, non-tender,nondistended. Normal active bowel sounds MUSCULOSKELETAL: Extremities without clubbing, cyanosis, or edema. NEURO: Alert & Oriented x4 to person, place, time, situation.Weak on Right side. Assessment and Plan Assessment and Plan A/P Assessment and Plan Large acute intraparenchymal hemorrhage involving the left parietal lobe Midline shift to the right by 9 mm. Subarachnoid hemorrhage and cerebral edema on the left side. Status post left parietal craniotomy for intracerebral hematoma evacuation, Left frontal gt hole placement for ventriculostomy . - Currently on levetiracetam 500 mg every 12 hours. - Venlafaxine 50 mill grams twice a day and trazodone 50 mg at night/home medication. - PT/ OT/ ST. Acute respiratory failure. COPD Status post percutaneous tracheostomy 12/02 #6 Shiley with no cuff. - Albuterol/ipratropium aerosols every 6 hours with albuterol aerosols every 2 hours as needed dyspnea. - Tobacco cessation. - Will Cap trach. - Trach suction and Lavage PRN CXR in am.. Will D/C Trach in am if stable. Acute pancreatitis/ choledocholithiasis/ History of celiac disease 11/21/17 s/p ERCP with sphincterotomy and balloon extraction, finding choledocholithiasis. - Resumed tube feedings with vital 1.5 goal 55 cc an hour per nutrition's recommendations . - Lansoprazole 30 mg daily for GI prophylaxis. Chronic pain On Morphine pump. - continue pain management. E. coli UTI Coag negative staph bacteremia. 11/19 -UA -pansensitive E. coli. 11/20 -blood cultures 2 -coag negative staph/staph epi pansensitive. ID consult appreciated. - hold ceftriaxone per infectious disease. DVT Right subclavian/axillary and brachial DVT. Left cephalic superficial thrombus/ brachial thrombus. - Start full anticoagulation 12/06 with Lovenox 70 mg bid, convert to Coumadin, d/c Lovenox when therapeutic. Claduia Shaffer MD Dec 17, 2017 14:19
[2017-12-17] MEDS: WARFARIN SOD 7.5 MG TAB PO SCH (16:08)
[2017-12-17] MEDS: traZODone HCL 50 MG TAB PO SCH (20:16)
[2017-12-18] VITALS (14 sets, daily range): BP systolic 101–126; BP diastolic 57–75; PULSE 93–122; RESP 18; TEMP 97.3–98.9; O2SAT 97–98
[2017-12-18] MEDS: FREE WATER G-TUBE SCH ×3 (05:38→22:00)
[2017-12-18] MEDS: ARTIFICIAL TEARS OPTH SOLN 15 ML BTL EACH EYE SCH ×3 (05:38→23:30)
[2017-12-18] MEDS: LACTULOSE SYRUP 20 GM/30 ML CUP PO SCH ×4 (05:38→18:00)
[2017-12-18] MEDS: VENLAFAXINE HCL 25 MG TAB PO SCH ×2 (05:39→18:24)
--- NOTE | 2017-12-18 06:30 | RADRPT ---
EXAM DATE/TIME: 12/18/2017 05:53 [facility] COMPARISON: CHEST SINGLE AP, December 15, 2017, 6:40. INDICATIONS : Short of breath, evaluate infiltrate MEDICAL HISTORY : Chronic obstructive pulmonary disease. Gastroesophageal reflux disease. Cardiovascular disease. c eliac disease, fibromyalgia SURGICAL HISTORY : cervical fusion, tubal ligation ENCOUNTER: Subsequent ACUITY: 2 weeks PAIN SCORE: 0/10 LOCATION: Bilateral chest FINDINGS: Portable AP view of the chest demonstrates a normal-sized cardiac silhouette. Tracheostomy remains pr esent. Lungs are underinflated. There is stable linear atelectasis or scar in the right upper lung zo ne. Bibasilar airspace opacity at the lung bases is stable. No pleural effusion or pneumothorax is se en. CONCLUSION: Stable chest x-ray with mild bibasilar airspace opacity representing either atelectasis or airspace c onsolidation. Jose Mccartney MD on December 18, 2017 at 6:28 Board Certified Radiologist. This report was verified electronically.
[2017-12-18] MEDS: RESP: ALBUTEROL 2.5 MG/IPRATROPIUM 0.5 MG NEB (SCH) NEB ×2 (07:54→11:55)
[2017-12-18] MEDS: NYSTATIN SUSP 500,000 U/5 ML CUP SWISH-SWAL SCH ×4 (08:30→21:22)
[2017-12-18] MEDS: levETIRAcetam 500 MG/5 ML UDC PO SCH ×2 (08:30→21:22)
[2017-12-18] MEDS: POLYETHYLENE GLYCOL 17 GM PKG PO SCH ×2 (09:00→21:00)
[2017-12-18] MEDS: TRIAMCINOLONE ACETONIDE 0.1% CREAM 15 GM TOPICAL SCH ×2 (09:00→21:00)
[2017-12-18] MEDS: DOCUSATE SODIUM 100 MG/10 ML UDC PO SCH ×2 (09:00→21:00)
[2017-12-18] MEDS: SODIUM CHLORIDE 0.9% FLUSH 10 ML FLUSH IV FLUSH SCH ×3 (09:00→21:00)
[2017-12-18] MEDS: SENNOSIDES SYRUP 8.8 MG/5 ML CUP NG SCH ×2 (09:00→21:00)
[2017-12-18 09:45] LABS: INTERNATIONAL NORMALIZED RATIO 2.8 RATIO
[2017-12-18] MEDS: LEVOFLOXACIN 750 MG PREMIX INJ 150 ML IV SCH (12:57)
[2017-12-18] MEDS: LANSOPRAZOLE SOLUTAB 30 MG TAB PO SCH (12:58)
[2017-12-18] MEDS: MORPHINE SULFATE ORAL SOLN 10 MG/0.5 ML SYRINGE PO PRN (13:11)
--- NOTE | 2017-12-18 15:41 | HHI.PR ---
Subjective Remarks The patient is tolerating the Trach very well. She is anxious to get it decannulated. Family is at the bedside. She had no acute complaints. Discussed with nursing. Objective Vitals Vital Signs Date Time Temp Pulse Resp B/P (MAP) Pulse Ox O2 Delivery O2 Flow Rate FiO2 12/18/17 11:39 98.4 103 18 120/72 (88) 97 12/18/17 07:57 98 12/18/17 07:39 98.9 107 18 126/75 (92) 98 12/18/17 05:11 97.3 105 18 106/61 (76) 97 12/18/17 04:06 93 12/18/17 00:33 97.3 115 18 101/57 (72) 98 12/18/17 00:08 111 12/17/17 20:03 97.7 114 18 121/78 (92) 97 12/17/17 19:45 115 12/17/17 19:27 98 12/17/17 16:00 97.6 99 18 147/76 (99) 97 I/O 12/17/17 12/17/17 12/17/17 12/18/17 12/18/17 12/18/17 07:00 15:00 23:00 07:00 15:00 23:00 Output Total 500 ml Balance -500 ml Output Urine Total 500 ml # Voids 4 1 3 # Bowel Movements 1 1 Result Diagram: 12/15/17 0746 12/15/17 0746 Imaging Last Impressions Chest X-Ray 12/18/17 0600 Signed Impressions: Service Date/Time: Monday, December 18, 2017 05:53 - CONCLUSION: Stable chest x-ray with mild bibasilar airspace opacity representing either atelectasis or airspace consolidation. Jose Mccartney MD Abdomen X-Ray 12/03/17 0000 Signed Impressions: Service Date/Time: Sunday, December 03, 2017 10:38 - CONCLUSION: No significant small or large bowel loop dilation. Anurag Carrion MD Head CT 11/26/17 0000 Signed Impressions: Service Date/Time: Monday, November 27, 2017 04:18 - CONCLUSION: Decreased pneumocephalus, stable intracranial intra-axial extra-axial hemorrhage and left parietal edema, with postsurgical changes and midline shift. Ariel Nath MD Upper Extremity Ultrasound 11/25/17 0000 Signed Impressions: Service Date/Time: Saturday, November 25, 2017 18:56 - CONCLUSION: Positive for deep venous thrombosis bilateral extremities, right worse than left. Anurag Carrion MD Lower Extremity Ultrasound 11/25/17 0000 Signed Impressions: Service Date/Time: Saturday, November 25, 2017 17:50 - CONCLUSION: Negative for deep venous thrombosis bilateral lower extremity. Anurag Carrion MD Abdomen/Pelvis CT 11/21/17 0000 Signed Impressions: Service Date/Time: Tuesday, November 21, 2017 21:37 - CONCLUSION: 1. No evidence to indicate pancreatitis. 2. Multiple stones in the gallbladder. 3. Multiple bilateral renal calculi.. 4. No significant changes compared to the prior exam. Meir Donnelly MD GI Procedure 11/20/17 0000 Signed Impressions: Service Date/Time: Monday, November 20, 2017 16:40 - CONCLUSION: ERCP as above. Jose Echevarria MD Objective Remarks GENERAL: No distress. SKIN: Warm and dry. HEAD: Wounds healing well. EYES: No scleral icterus. No injection or drainage. Pupils bilaterally 2 mm reactive. NECK: Supple, trachea midline. No JVD. Tracheostomy site is clean dry and intact without bleeding. CARDIOVASCULAR: NL S1S2. Without murmurs, gallops, or rubs. No JVD. RESPIRATORY: Crackles at the bases.. GASTROINTESTINAL: Abdomen soft, non-tender, nondistended. PEG tube in place, site is clean. MUSCULOSKELETAL: Warm, Well perfused. No edema. NEURO: Pupils equal, round, reactive. No movement right upper extremity. Withdraws to pain right lower extremity. Spontaneous moving left upper and lower extremity. PSYCH: Mood and affect appropriate. Medications and IVs Current Medications Medications (Trade) Dose Ordered Sig/Rachel Route Start Time Stop Time Status Last Admin (NS Flush) 2 ml UNSCH PRN IV FLUSH 11/19/17 04:45 (NS Flush) 2 ml BID IV FLUSH 11/19/17 09:00 12/18/17 09:00 (Zofran Inj) 4 mg Q6H PRN IVP 11/19/17 04:45 (Narcan Inj) 0.4 mg UNSCH PRN IV PUSH 11/19/17 04:45 (Buspar) 30 mg BID PO 11/20/17 09:00 Future Hold 11/21/17 20:28 (Fioricet 325-50-40) 1 tab Q4H PRN PO 11/20/17 05:30 Future Hold 11/20/17 20:33 (Aristocort 0.1% Cream) 1 applic BID TOPICAL 11/21/17 12:00 12/17/17 20:18 (Prinivil) 20 mg DAILY PO 11/22/17 09:00 Future Hold (Lopressor) 12.5 mg Q12HR PO 11/21/17 10:00 Future Hold 11/21/17 20:32 (Colace Liq) 100 mg Q12HR PO 11/22/17 09:00 12/17/17 20:15 (Senna Liq) 8.8 mg BID NG 11/23/17 21:00 12/17/17 20:16 (Albuterol Neb) 2.5 mg Q2HR NEB PRN NEB 11/23/17 16:00 12/06/17 21:20 (Tears Naturale Opth Soln) 1 drop Q8HR EACH EYE 11/23/17 22:00 12/18/17 13:04 (Cathflo Activase Inj) 2 mg Q2H PRN INTRACATH 11/29/17 14:15 12/08/17 11:33 (NS Flush) DAILY IV FLUSH 11/30/17 09:00 12/18/17 09:00 (NS Flush) UNSCH PRN IV FLUSH 11/30/17 08:45 (Free Water) VOLUME: 300 ML Q8HR G-TUBE 11/30/17 14:00 12/17/17 14:00 (Vasotec Inj) 1.25 mg Q6H PRN IV PUSH 12/01/17 12:00 (Nitroglycerin 2% Oint) 2 inch Q6HR PRN TOPICAL 12/01/17 12:00 (Brethine Inj) 1 mg UNSCH PRN SQ 12/02/17 11:30 (Mycostatin Liq) 5 ml QID SWISH-SWAL 12/03/17 13:00 12/18/17 13:04 (Effexor) 50 mg Q12H PO 12/03/17 16:00 12/18/17 05:39 (Desyrel) 50 mg HS PO 12/03/17 21:00 12/17/17 20:16 (Morphine Inj) 2 mg Q4H PRN IV PUSH 12/14/17 15:00 (Duoneb Neb) 1 ampule QID NEB NEB 12/14/17 20:00 12/18/17 07:54 Levofloxacin/ Dextrose 150 ml @ 100 mls/hr Q24H IV 12/15/17 13:00 12/18/17 12:57 Pharmacy Profile Note 0 ml @ 0 mls/hr UNSCH OTHER 12/15/17 11:15 (Tylenol 650 Mg/ 20 ml Liq) 650 mg Q6H PRN PO 12/16/17 15:00 (Lactulose Liq) 30 ml Q6HR PO 12/16/17 18:00 (Prevacid Odt) 30 mg DAILY PO 12/17/17 09:00 12/18/17 12:58 (Keppra Liq) 500 mg Q12HR PO 12/16/17 21:00 12/18/17 08:30 (Roxanol Liq) 10 mg Q4HR PRN PO 12/16/17 14:45 12/18/17 13:11 (Miralax) 17 gm BID PO 12/16/17 21:00 12/17/17 20:16 (Pill Splitter) 1 ea UNSCH PRN OTHER 12/16/17 15:00 (Coumadin) 7.5 mg DAILY@1600 PO 12/19/17 16:00 Date of Insertion: Nov 30, 2017 Line: Central Venous Catheter Side: Left Location: Internal, Jugular A/P Assessment and Plan Large acute intraparenchymal hemorrhage involving the left parietal lobe Midline shift to the right by 9 mm. Subarachnoid hemorrhage and cerebral edema on the left side. Status post left parietal craniotomy for intracerebral hematoma evacuation, Left frontal gt hole placement for ventriculostomy by Dr. Womack. - Currently on levetiracetam 500 mg every 12 hours. - Morphine liquid as needed with a bowel regimen. - Venlafaxine 50 mill grams twice a day and trazodone 50 mg at night/home medication. - PT/ OT/ ST. Acute respiratory failure Status post percutaneous tracheostomy 12/02 #8 [place]. Has COPD and ongoing tobaccoism. Pulmonology consult appreciated. Repeat CXR with basilar airspace disease. - Albuterol/ipratropium aerosols every 6 hours with albuterol aerosols every 2 hours as needed dyspnea. - Tobacco cessation. - trach management per pulmonology. Possible decannulation today. - IV Levaquin started 12/15, end date 12/22. Acute pancreatitis/ choledocholithiasis/ History of celiac disease 11/21/17 s/p ERCP with sphincterotomy and balloon extraction, finding choledocholithiasis. GI signed off. - d/c tube feeds. Regular diet per speech therapy. - Lansoprazole 30 mg daily for GI prophylaxis. - Continue docusate sodium 100 mg twice daily and senna 8.6 mg twice daily. Patient is on polyethylene glycol 17 g twice daily at home for constipation which is been continued along with lactulose 30 cc 4 times a day. - will need PEG tube removed by GI when able. Chronic pain On Morphine pump. - continue pain management as above. E. coli UTI Coag negative staph bacteremia. 11/19 -UA -pansensitive E. coli. 11/20 -blood cultures 2 -coag negative staph/staph epi pansensitive. ID consult appreciated. - hold ceftriaxone per infectious disease. On Levaquin for PNA as above. DVT Right subclavian/axillary and brachial DVT. Left cephalic superficial thrombus/ brachial thrombus. - d/c Lovenox, INR is therapeutic on Coumadin. PPx: Coumadin Discharge Planning Awaiting decannulation of trach. Needs rehab arranged. Julian Manjarrez DO Dec 18, 2017 15:41
[2017-12-18 16:28] LABS: HEMOGLOBIN A1C 5.6 % (4.3-6.0)
--- NOTE | 2017-12-18 19:25 | HHI.PR ---
Subjective Remarks Alert and off O2 . Trach capped. for 2 days , and talking. Able to walk with help. No fever. Moving right arm and leg better. Off Lovenox Objective Vital Signs Date Time Temp Pulse Resp B/P (MAP) Pulse Ox O2 Delivery O2 Flow Rate FiO2 12/18/17 15:51 98.5 118 18 114/60 (78) 97 12/18/17 11:39 98.4 103 18 120/72 (88) 97 12/18/17 07:57 98 12/18/17 07:39 98.9 107 18 126/75 (92) 98 12/18/17 05:11 97.3 105 18 106/61 (76) 97 12/18/17 04:06 93 12/18/17 00:33 97.3 115 18 101/57 (72) 98 12/18/17 00:08 111 12/17/17 20:03 97.7 114 18 121/78 (92) 97 12/17/17 19:45 115 12/17/17 19:27 98 I/O 12/17/17 12/17/17 12/17/17 12/18/17 12/18/17 12/18/17 07:00 15:00 23:00 07:00 15:00 23:00 Output Total 500 ml Balance -500 ml Output Urine Total 500 ml # Voids 4 1 3 # Bowel Movements 1 1 Result Diagram: 12/15/17 0746 12/15/17 0746 Objective Remarks GENERAL: This is a well-nourished, well-developed patient, in no apparent distress.HEENT: Clear throat. Neck: Trach in place and capped .No venous distension. CARDIOVASCULAR: Regular rate and rhythm without murmurs, gallops, or rubs. RESPIRATORY: No wheeze and diminished breath sounds bilaterally. GASTROINTESTINAL: Abdomen soft, non-tender,nondistended. Normal active bowel sounds MUSCULOSKELETAL: Extremities without clubbing, cyanosis, or edema. NEURO: Alert & Oriented x4 to person, place, time, situation.Weak on Right side. Assessment and Plan Assessment and Plan A/P Assessment and Plan Large acute intraparenchymal hemorrhage involving the left parietal lobe Midline shift to the right by 9 mm. Subarachnoid hemorrhage and cerebral edema on the left side. Status post left parietal craniotomy for intracerebral hematoma evacuation, Left frontal gt hole placement for ventriculostomy . - Currently on levetiracetam 500 mg every 12 hours. - Venlafaxine 50 mill grams twice a day and trazodone 50 mg at night/home medication. - PT/ OT/ ST. Acute respiratory failure. COPD Status post percutaneous tracheostomy 12/02 #6 [place]iley with no cuff. - Albuterol/ipratropium aerosols every 6 hours with albuterol aerosols every 2 hours as needed dyspnea. - Tobacco cessation. -Leave Cap on trach.till AM Will D/C Trach in am if stable. Acute pancreatitis/ choledocholithiasis/ History of celiac disease 11/21/17 s/p ERCP with sphincterotomy and balloon extraction, finding choledocholithiasis. Po Diet as tolerated - Lansoprazole 30 mg daily for GI prophylaxis. Chronic pain On Morphine pump. - continue pain management. DVT Right subclavian/axillary and brachial DVT. Left cephalic superficial thrombus/ brachial thrombus. -Cont Coumadin 5 mg daily, Claudia Shaffer MD Dec 18, 2017 19:25
[2017-12-18] MEDS: traZODone HCL 50 MG TAB PO SCH (21:22)
[2017-12-19] VITALS (9 sets, daily range): BP systolic 106–129; BP diastolic 56–105; PULSE 98–116; RESP 17–20; TEMP 97–98.6; O2SAT 95–99
[2017-12-19] MEDS: VENLAFAXINE HCL 25 MG TAB PO SCH ×3 (04:00→22:00)
[2017-12-19] MEDS: ARTIFICIAL TEARS OPTH SOLN 15 ML BTL EACH EYE SCH ×3 (06:00→22:02)
[2017-12-19] MEDS: FREE WATER G-TUBE SCH ×3 (06:00→22:02)
[2017-12-19] MEDS: LACTULOSE SYRUP 20 GM/30 ML CUP PO SCH ×4 (06:00→18:00)
[2017-12-19 07:18] LABS: INTERNATIONAL NORMALIZED RATIO 1.8 RATIO; PROTHROMBIN TIME - PATIENT 17.9 SEC (9.8-11.6)
[2017-12-19] MEDS: NYSTATIN SUSP 500,000 U/5 ML CUP SWISH-SWAL SCH ×4 (08:00→21:00)
[2017-12-19] MEDS: LANSOPRAZOLE SOLUTAB 30 MG TAB PO SCH (08:00)
[2017-12-19] MEDS: SENNOSIDES SYRUP 8.8 MG/5 ML CUP NG SCH ×2 (08:02→21:00)
[2017-12-19] MEDS: levETIRAcetam 500 MG/5 ML UDC PO SCH ×2 (08:02→22:00)
[2017-12-19] MEDS: DOCUSATE SODIUM 100 MG/10 ML UDC PO SCH ×2 (08:02→21:00)
[2017-12-19] MEDS: POLYETHYLENE GLYCOL 17 GM PKG PO SCH ×2 (08:02→21:00)
[2017-12-19] MEDS: TRIAMCINOLONE ACETONIDE 0.1% CREAM 15 GM TOPICAL SCH ×2 (09:00→22:02)
[2017-12-19] MEDS: SODIUM CHLORIDE 0.9% FLUSH 10 ML FLUSH IV FLUSH SCH ×3 (09:00→13:21)
[2017-12-19] MEDS: MORPHINE SULFATE ORAL SOLN 10 MG/0.5 ML SYRINGE PO PRN ×2 (10:58→18:49)
[2017-12-19] MEDS: LEVOFLOXACIN 750 MG PREMIX INJ 150 ML IV SCH (13:24)
[2017-12-19] MEDS ORDERED: WARFARIN SOD 7.5 MG TAB PO SCH (16:00)
--- NOTE | 2017-12-19 19:04 | HHI.PR ---
Subjective Remarks Alert and off O2 . Trach is out and is doing well. Needs PEG out. No fever. Walks in halls. Objective Vital Signs Date Time Temp Pulse Resp B/P (MAP) Pulse Ox O2 Delivery O2 Flow Rate FiO2 12/19/17 16:50 99 12/19/17 16:14 98.4 116 20 106/56 (73) 98 12/19/17 11:44 97.7 103 20 129/105 (113) 95 12/19/17 08:05 98.1 98 18 113/67 (82) 99 12/19/17 06:00 98.6 100 19 112/72 (85) 97 12/19/17 00:15 97.0 104 17 123/79 (94) 97 12/18/17 23:49 107 12/18/17 22:00 98.1 105 18 120/73 (89) 97 12/18/17 20:52 105 12/18/17 20:31 97 I/O 12/18/17 12/18/17 12/18/17 12/19/17 12/19/17 12/19/17 07:00 15:00 23:00 07:00 15:00 23:00 Intake Total 700 ml 900 ml 720 ml Balance 700 ml 900 ml 720 ml Intake Oral 700 ml 900 ml 720 ml # Voids 3 1 4 4 # Bowel Movements 0 0 2 Result Diagram: 12/15/17 0746 12/15/17 0746 Objective Remarks GENERAL: This is a well-nourished, well-developed patient, in no apparent distress.HEENT: Clear throat. Neck: Trach site is clean .No venous distension. CARDIOVASCULAR: Regular rate and rhythm without murmurs, gallops, or rubs. RESPIRATORY: Occ wheeze and diminished breath sounds bilaterally. GASTROINTESTINAL: Abdomen soft, non-tender,nondistended. Normal active bowel sounds MUSCULOSKELETAL: Extremities without clubbing, cyanosis, or edema. NEURO: Alert & Oriented x4 to person, place, time, situation.Weak on Right side. Assessment and Plan Assessment and Plan A/P Assessment and Plan Large acute intraparenchymal hemorrhage involving the left parietal lobe Midline shift to the right by 9 mm. Subarachnoid hemorrhage and cerebral edema on the left side. Status post left parietal craniotomy for intracerebral hematoma evacuation, Left frontal gt hole placement for ventriculostomy . - Currently on levetiracetam 500 mg every 12 hours. - PT/ OT/ ST. Acute respiratory failure. COPD, Resolved. Status post percutaneous tracheostomy 12/02 #6 Shiley and removal - Albuterol/ipratropium aerosols every 6 hours prn. - Tobacco cessation. Clean trach site and dress daily. Acute pancreatitis/ choledocholithiasis/ History of celiac disease 11/21/17 s/p ERCP with sphincterotomy and balloon extraction, finding choledocholithiasis. Po Diet as tolerated - Lansoprazole 30 mg daily for GI prophylaxis. D/C PEG Chronic pain On Morphine pump. - continue pain management. DVT Right subclavian/axillary and brachial DVT. Left cephalic superficial thrombus/ brachial thrombus. -Cont Coumadin 7.5 mg daily, Claudia Shaffer MD Dec 19, 2017 19:04
--- NOTE | 2017-12-19 19:32 | HHI.PR ---
Subjective Remarks Patient denies cp, sob. Trach out and patient doing well. Denies abdominal pain, nausea or vomiting. Objective Vitals Vital Signs Date Time Temp Pulse Resp B/P (MAP) Pulse Ox O2 Delivery O2 Flow Rate FiO2 12/19/17 16:50 99 12/19/17 16:14 98.4 116 20 106/56 (73) 98 12/19/17 11:44 97.7 103 20 129/105 (113) 95 12/19/17 08:05 98.1 98 18 113/67 (82) 99 12/19/17 06:00 98.6 100 19 112/72 (85) 97 12/19/17 00:15 97.0 104 17 123/79 (94) 97 12/18/17 23:49 107 12/18/17 22:00 98.1 105 18 120/73 (89) 97 12/18/17 20:52 105 12/18/17 20:31 97 I/O 12/18/17 12/18/17 12/18/17 12/19/17 12/19/17 12/19/17 06:59 14:59 22:59 06:59 14:59 22:59 Intake Total 700 ml 900 ml 720 ml Balance 700 ml 900 ml 720 ml Intake Oral 700 ml 900 ml 720 ml # Voids 3 1 4 4 # Bowel Movements 0 0 2 Result Diagram: 12/15/17 0746 12/15/17 0746 Imaging Last 72 hours Impressions Chest X-Ray 12/18/17 0600 Signed Impressions: Service Date/Time: Monday, December 18, 2017 05:53 - CONCLUSION: Stable chest x-ray with mild bibasilar airspace opacity representing either atelectasis or airspace consolidation. Jose Mccartney MD Objective Remarks GENERAL: No distress. SKIN: Warm and dry. HEAD: Wounds healing well. EYES: No scleral icterus. No injection or drainage. Pupils bilaterally 2 mm reactive. NECK: Supple, trachea midline. No JVD. Tracheostomy site is clean dry and intact without bleeding. CARDIOVASCULAR: NL S1S2. Without murmurs, gallops, or rubs. No JVD. RESPIRATORY: Crackles at the bases.. GASTROINTESTINAL: Abdomen soft, non-tender, nondistended. PEG is almost out. MUSCULOSKELETAL: Warm, Well perfused. No edema. NEURO: Pupils equal, round, reactive. No movement right upper extremity. Withdraws to pain right lower extremity. Spontaneous moving left upper and lower extremity. PSYCH: Mood and affect appropriate. Medications and IVs Current Medications Medications (Trade) Dose Ordered Sig/Rachel Route Start Time Stop Time Status Last Admin (NS Flush) 2 ml UNSCH PRN IV FLUSH 11/19/17 04:45 (NS Flush) 2 ml BID IV FLUSH 11/19/17 09:00 12/19/17 13:21 (Zofran Inj) 4 mg Q6H PRN IVP 11/19/17 04:45 (Narcan Inj) 0.4 mg UNSCH PRN IV PUSH 11/19/17 04:45 (Buspar) 30 mg BID PO 11/20/17 09:00 Future Hold 11/21/17 20:28 (Fioricet 325-50-40) 1 tab Q4H PRN PO 11/20/17 05:30 Future Hold 11/20/17 20:33 (Aristocort 0.1% Cream) 1 applic BID TOPICAL 11/21/17 12:00 12/19/17 09:00 (Prinivil) 20 mg DAILY PO 11/22/17 09:00 Future Hold (Lopressor) 12.5 mg Q12HR PO 11/21/17 10:00 Future Hold 11/21/17 20:32 (Colace Liq) 100 mg Q12HR PO 11/22/17 09:00 12/17/17 20:15 (Senna Liq) 8.8 mg BID NG 11/23/17 21:00 12/17/17 20:16 (Albuterol Neb) 2.5 mg Q2HR NEB PRN NEB 11/23/17 16:00 12/06/17 21:20 (Tears Naturale Opth Soln) 1 drop Q8HR EACH EYE 11/23/17 22:00 12/19/17 13:30 (Cathflo Activase Inj) 2 mg Q2H PRN INTRACATH 11/29/17 14:15 12/08/17 11:33 (NS Flush) DAILY IV FLUSH 11/30/17 09:00 12/19/17 09:00 (NS Flush) UNSCH PRN IV FLUSH 11/30/17 08:45 (Free Water) VOLUME: 300 ML Q8HR G-TUBE 11/30/17 14:00 12/19/17 14:00 (Vasotec Inj) 1.25 mg Q6H PRN IV PUSH 12/01/17 12:00 (Nitroglycerin 2% Oint) 2 inch Q6HR PRN TOPICAL 12/01/17 12:00 (Brethine Inj) 1 mg UNSCH PRN SQ 12/02/17 11:30 (Mycostatin Liq) 5 ml QID SWISH-SWAL 12/03/17 13:00 12/19/17 18:40 (Desyrel) 50 mg HS PO 12/03/17 21:00 12/18/17 21:22 Levofloxacin/ Dextrose 150 ml @ 100 mls/hr Q24H IV 12/15/17 13:00 12/19/17 13:24 Pharmacy Profile Note 0 ml @ 0 mls/hr UNSCH OTHER 12/15/17 11:15 (Tylenol 650 Mg/ 20 ml Liq) 650 mg Q6H PRN PO 12/16/17 15:00 (Lactulose Liq) 30 ml Q6HR PO 12/16/17 18:00 (Prevacid Odt) 30 mg DAILY PO 12/17/17 09:00 12/19/17 08:00 (Keppra Liq) 500 mg Q12HR PO 12/16/17 21:00 12/18/17 21:22 (Roxanol Liq) 10 mg Q4HR PRN PO 12/16/17 14:45 12/19/17 18:49 (Miralax) 17 gm BID PO 12/16/17 21:00 12/17/17 20:16 (Pill Splitter) 1 ea UNSCH PRN OTHER 12/16/17 15:00 (Coumadin) 7.5 mg DAILY@1600 PO 12/19/17 16:00 12/19/17 18:42 (Effexor) 50 mg Q12H PO 12/19/17 08:00 12/19/17 08:01 Urinary Catheter: No Date of Insertion: Nov 30, 2017 Line: Central Venous Catheter Side: Left Location: Internal, Jugular A/P Assessment and Plan Large acute intraparenchymal hemorrhage involving the left parietal lobe Midline shift to the right by 9 mm. Subarachnoid hemorrhage and cerebral edema on the left side. Status post left parietal craniotomy for intracerebral hematoma evacuation, Left frontal gt hole placement for ventriculostomy by Dr. Womack. - Currently on levetiracetam 500 mg every 12 hours. - Morphine liquid as needed with a bowel regimen. - Venlafaxine 50 mill grams twice a day and trazodone 50 mg at night/home medication. - PT/ OT/ ST. Acute respiratory failure Status post percutaneous tracheostomy 12/02 #8 Malachi. Has COPD and ongoing tobaccoism. Pulmonology consult appreciated. Repeat CXR with basilar airspace disease. - Albuterol/ipratropium aerosols every 6 hours with albuterol aerosols every 2 hours as needed dyspnea. - Tobacco cessation. - IV Levaquin started 12/15, end date 12/22. - 12/19 trach has been decannulated and patient is doing well. Continue to follow pulmonology recommendations. Acute pancreatitis/ choledocholithiasis/ History of celiac disease 11/21/17 s/p ERCP with sphincterotomy and balloon extraction, finding choledocholithiasis. GI signed off. - d/c tube feeds. Regular diet per speech therapy. - Lansoprazole 30 mg daily for GI prophylaxis. - Continue docusate sodium 100 mg twice daily and senna 8.6 mg twice daily. Patient is on polyethylene glycol 17 g twice daily at home for constipation which is been continued along with lactulose 30 cc 4 times a day. - will need PEG tube removed by GI when able. 12/19 reconsult GI for PEG removal. Chronic pain On Morphine pump. - continue pain management as above. E. coli UTI Coag negative staph bacteremia. 11/19 -UA -pansensitive E. coli. 11/20 -blood cultures 2 -coag negative staph/staph epi pansensitive. ID consult appreciated. - hold ceftriaxone per infectious disease. On Levaquin for PNA as above. 12/19 DC IV Levaquin and start oral levaquin DVT Right subclavian/axillary and brachial DVT. Left cephalic superficial thrombus/ brachial thrombus. - d/c Lovenox, INR slightly subtherapeutic. Monitor PT/INR. 12/19 INR slightly subtherapeutic at 1.8. Pharmacy consulted to help on Coumadin dosage. PPx: Coumadin Discharge Planning Pending pulmonology clearance. Pending GI reconsult to remove PEG tube. Eusebio Graves MD Dec 19, 2017 19:32
[2017-12-19] MEDS: traZODone HCL 50 MG TAB PO SCH (22:00)
[2017-12-20] VITALS (8 sets, daily range): BP systolic 110–118; BP diastolic 67–72; PULSE 67–109; RESP 17–19; TEMP 97.5–98; O2SAT 97–99
[2017-12-20] MEDS: LACTULOSE SYRUP 20 GM/30 ML CUP PO SCH ×4 (06:00→18:49)
[2017-12-20] MEDS: FREE WATER G-TUBE SCH ×3 (06:00→20:29)
[2017-12-20] MEDS: ARTIFICIAL TEARS OPTH SOLN 15 ML BTL EACH EYE SCH ×3 (06:00→20:28)
[2017-12-20 07:53] LABS: AUTOMATED NEUTROPHIL # 3.5 TH/MM3 (1.8-7.7); BASOPHIL % 0.2 % (0.0-2.0); EOSINOPHIL # 0.2 TH/MM3 (0-0.4); EOSINOPHIL % 3.6 % (0.0-4.0); HEMATOCRIT 34.7 % (35.0-46.0); HEMOGLOBIN 11.7 GM/DL (11.6-15.3); LYMPH % 32.8 % (9.0-44.0); LYMPHOCYTE # 2.1 TH/MM3 (1.0-4.8); MEAN CELL VOLUME 85.6 FL (80.0-100.0); MEAN CORPUSCULAR HEMOGLOBIN 28.8 PG (27.0-34.0); MEAN CORPUSCULAR HGB CONC 33.6 % (32.0-36.0); MEAN PLATELET VOLUME 7.5 FL (7.0-11.0); MONO % 7.9 % (0.0-8.0); MONOCYTE # 0.5 TH/MM3 (0-0.9); NEUT % 55.5 % (16.0-70.0); PLATELET COUNT 297 TH/MM3 (150-450); RED BLOOD COUNT 4.05 MIL/MM3 (4.00-5.30); RED CELL DISTRIBUTION WIDTH 17.3 % (11.6-17.2); WHITE BLOOD COUNT 6.3 TH/MM3 (4.0-11.0)
[2017-12-20 07:57] LABS: INTERNATIONAL NORMALIZED RATIO 1.3 RATIO; PROTHROMBIN TIME - PATIENT 13.6 SEC (9.8-11.6)
[2017-12-20 08:23] LABS: ALBUMIN 2.8 GM/DL (3.4-5.0); ALKALINE PHOSPHATASE 142 U/L (45-117); ALT (GPT) 49 U/L (10-53); AST (GOT) 23 U/L (15-37); BICARBONATE 24.8 MEQ/L (21.0-32.0); BLOOD UREA NITROGEN 12 MG/DL (7-18); CALCIUM 9.6 MG/DL (8.5-10.1); CHLORIDE 108 MEQ/L (98-107); GLOMERULAR FILTRATION RATE 56 ML/MIN (>89); GLUCOSE,RANDOM 101 MG/DL (74-106); MAGNESIUM 2.4 MG/DL (1.5-2.5); PHOSPHORUS 2.9 MG/DL (2.5-4.9); SODIUM (NA) 140 MEQ/L (136-145); TOTAL BILIRUBIN ADULT 0.2 MG/DL (0.2-1.0); TOTAL PROTEIN 7.1 GM/DL (6.4-8.2)
[2017-12-20] MEDS: NYSTATIN SUSP 500,000 U/5 ML CUP SWISH-SWAL SCH ×4 (08:27→20:28)
[2017-12-20] MEDS: LANSOPRAZOLE SOLUTAB 30 MG TAB PO SCH (08:27)
[2017-12-20] MEDS: SENNOSIDES SYRUP 8.8 MG/5 ML CUP NG SCH ×2 (08:27→20:28)
[2017-12-20] MEDS: VENLAFAXINE HCL 25 MG TAB PO SCH ×2 (08:27→20:27)
[2017-12-20] MEDS: POLYETHYLENE GLYCOL 17 GM PKG PO SCH ×2 (08:28→20:28)
[2017-12-20] MEDS: LEVOFLOXACIN 750 MG TAB PO SCH (08:28)
[2017-12-20] MEDS: levETIRAcetam 500 MG/5 ML UDC PO SCH ×2 (08:28→20:27)
[2017-12-20] MEDS: SODIUM CHLORIDE 0.9% FLUSH 10 ML FLUSH IV FLUSH SCH ×4 (08:29→20:28)
[2017-12-20] MEDS: DOCUSATE SODIUM 100 MG/10 ML UDC PO SCH ×2 (08:29→20:28)
[2017-12-20] MEDS: TRIAMCINOLONE ACETONIDE 0.1% CREAM 15 GM TOPICAL SCH ×2 (08:30→20:28)
[2017-12-20] MEDS: MORPHINE SULFATE ORAL SOLN 10 MG/0.5 ML SYRINGE PO PRN ×2 (12:34→20:27)
--- NOTE | 2017-12-20 14:44 | HHI.GIFU ---
Subjective Remarks Pt resting in bed. Wants PEG tube removed. She is eating very well, good appetite. (Columba Malhotra) Objective Vitals I&O Vital Signs Date Time Temp Pulse Resp B/P (MAP) Pulse Ox O2 Delivery O2 Flow Rate FiO2 12/20/17 12:17 97.8 107 19 110/72 (85) 99 12/20/17 12:00 109 12/20/17 08:19 97.5 98 19 116/72 (87) 99 12/20/17 08:00 96 12/20/17 05:34 106 12/20/17 04:40 98.0 67 17 118/67 (84) 99 12/19/17 23:52 98.5 112 18 127/79 (95) 97 12/19/17 21:58 97.4 98 18 108/76 (87) 98 12/19/17 21:56 99 21 12/19/17 16:50 99 12/19/17 16:14 98.4 116 20 106/56 (73) 98 I/O 12/19/17 12/19/17 12/19/17 12/20/17 12/20/17 12/20/17 06:59 14:59 22:59 06:59 14:59 22:59 Intake Total 900 ml 1520 ml 850 ml 240 ml Balance 900 ml 1520 ml 850 ml 240 ml Intake Oral 900 ml 1520 ml 850 ml 240 ml # Voids 4 5 6 # Bowel Movements 0 2 0 Laboratory Laboratory Tests Test 12/20/17 07:21 White Blood Count 6.3 Red Blood Count 4.05 Hemoglobin 11.7 Hematocrit 34.7 Mean Corpuscular Volume 85.6 Mean Corpuscular Hemoglobin 28.8 Mean Corpuscular Hemoglobin Concent 33.6 Red Cell Distribution Width 17.3 Platelet Count 297 Mean Platelet Volume 7.5 Neutrophils (%) (Auto) 55.5 Lymphocytes (%) (Auto) 32.8 Monocytes (%) (Auto) 7.9 Eosinophils (%) (Auto) 3.6 Basophils (%) (Auto) 0.2 Neutrophils # (Auto) 3.5 Lymphocytes # (Auto) 2.1 Monocytes # (Auto) 0.5 Eosinophils # (Auto) 0.2 Basophils # (Auto) 0.0 CBC Comment DIFF FINAL Differential Comment Prothrombin Time 13.6 Prothromb Time International Ratio 1.3 Blood Urea Nitrogen 12 Creatinine 1.00 Random Glucose 101 Total Protein 7.1 Albumin 2.8 Calcium Level 9.6 Phosphorus Level 2.9 Magnesium Level 2.4 Alkaline Phosphatase 142 Aspartate Amino Transf (AST/SGOT) 23 Alanine Aminotransferase (ALT/SGPT) 49 Total Bilirubin 0.2 Sodium Level 140 Potassium Level 3.8 Chloride Level 108 Carbon Dioxide Level 24.8 Anion Gap 7 Estimat Glomerular Filtration Rate 56 Date/Time Source Procedure Growth Status 11/25/17 17:50 Blood Line Aerobic Blood Culture - Final NO GROWTH IN 5 DAYS Complete 11/25/17 17:50 Blood Line Anaerobic Blood Culture - Final NO GROWTH IN 5 DAYS Complete 11/26/17 15:00 Cerebral Spinal Fluid Lumbar Puncture Fungal Smear - Final NO FUNGAL ELEMENTS SEEN. Resulted 11/26/17 15:00 Cerebral Spinal Fluid Lumbar Puncture Fungal Culture - Preliminary NO GROWTH IN 3 WEEKS Resulted 12/04/17 05:30 Sputum Endotracheal Gram Stain - Final Complete 12/04/17 05:30 Sputum Culture - Final Stenotrophomonas Maltophilia Complete 11/25/17 16:40 Urine Catheterized Urine Urine Culture - Final NO GROWTH IN 48 HOURS. Complete Imaging Last Impressions Chest X-Ray 12/18/17 0600 Signed Impressions: Service Date/Time: Monday, December 18, 2017 05:53 - CONCLUSION: Stable chest x-ray with mild bibasilar airspace opacity representing either atelectasis or airspace consolidation. Jose Mccartney MD Abdomen X-Ray 12/03/17 0000 Signed Impressions: Service Date/Time: Sunday, December 03, 2017 10:38 - CONCLUSION: No significant small or large bowel loop dilation. Anurag Carrion MD Head CT 11/26/17 0000 Signed Impressions: Service Date/Time: Monday, November 27, 2017 04:18 - CONCLUSION: Decreased pneumocephalus, stable intracranial intra-axial extra-axial hemorrhage and left parietal edema, with postsurgical changes and midline shift. Ariel Nath MD Upper Extremity Ultrasound 11/25/17 0000 Signed Impressions: Service Date/Time: Saturday, November 25, 2017 18:56 - CONCLUSION: Positive for deep venous thrombosis bilateral extremities, right worse than left. Anurag Carrion MD Lower Extremity Ultrasound 11/25/17 0000 Signed Impressions: Service Date/Time: Saturday, November 25, 2017 17:50 - CONCLUSION: Negative for deep venous thrombosis bilateral lower extremity. Anurag Carrion MD Abdomen/Pelvis CT 11/21/17 0000 Signed Impressions: Service Date/Time: Tuesday, November 21, 2017 21:37 - CONCLUSION: 1. No evidence to indicate pancreatitis. 2. Multiple stones in the gallbladder. 3. Multiple bilateral renal calculi.. 4. No significant changes compared to the prior exam. Meir Donnelly MD GI Procedure 11/20/17 0000 Signed Impressions: Service Date/Time: Monday, November 20, 2017 16:40 - CONCLUSION: ERCP as above. Jose Echevarria MD Physical Exam HEENT: normocephalic; atraumatic; trach dressing dry and intact CHEST: CTA CARDIAC: RRR ABDOMEN: Soft, round, no hepatosplenomegaly;BS + PEG site dressign clean EXTREMITIES: No clubbing, cyanosis, or edema. 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 CT of the abdomen/pelvis done and that was significant for cholelithiasis and mild prominence of the biliary tree with questionable filling defect in the distal common bile duct, suspicious for stone versus mass. Labs with normal LfTs, high Lipase 2544. Patient reports subjective fever and chills. CBC unremarkable. Patient denies abd pain, change in bowels, change in urine, hematemesis or hematochezia. Denies previous hx of pancreatitis or liver disease, denies alcohol or illicit drug use. Reports nausea and one episode of vomiting the day before yesterday. - Hx of celiac dz- last EGD 5 yrs ago per pt, has been following gluten free diet, she consumes gluten every now and then but minimal - UTI- urine cx pending - involuntary leg spasms that wasn't relived with morphine. per attending - past medical history significant for chronic pain with morphine pump, fibromyalgia, per attending 11/21/17 s/p ERCP with sphincterotomy and balloon extraction, finding choledocholithiasis. AST worsened today, mild increase 0.8. tumor markers WNL. lipase WNL. WBC significant increase today, appears diaphoretic. tachycardic. 11/22/17 s/p crani for hemorrhage. in ISC now intubated. LFTs improving. CT abd unremarkable. 12/01/17 s/p hemorrhagic stroke. GI reconsulted for PEG tube placement. d/w family Yvette Vasquez [phone] and she is agreeable to proceed. 12/02/17 on vent. s/p bronch & trach. just had NGT placed, KUB pending. HH stable 12/05/17 s/p trach, s/p EGD and peg tube placement, EGD was unremarkable. peg tube flushing well. 12/20/17 GI reconsulted for PEG tube removal. Pt since extubated, eating well, trach removed. Passed swallow eval. poss d/c to rehab. Peg placed 12/04/17, cannot remove it yet Plan: - RUFINA - PEG tube can be removed on or after 01/01/18 - ok to d/c to rehab from GI standpoint - GI will sign off, please reconsult if needed pt seen by myself and Dr Foster and this note is written on her behalf (Columba Malhotra) Physician Comments Agree with above assessment and plan. Thank you for the consult. (Orlando Foster MD) Columba Malhotra Dec 20, 2017 14:44 Orlando Foster MD Dec 21, 2017 06:52
[2017-12-20] MEDS ORDERED: WARFARIN SOD 1 MG TAB PO ONE ×2 (16:00)
[2017-12-20] MEDS ORDERED: WARFARIN SOD 7.5 MG TAB PO SCH (16:00)
--- NOTE | 2017-12-20 16:53 | HHI.PR ---
Subjective Remarks The patient has no complaints. Patient is off trach and denies chest pain or shortness of breath. Denies fevers or chills. Objective Vitals Vital Signs Date Time Temp Pulse Resp B/P (MAP) Pulse Ox O2 Delivery O2 Flow Rate FiO2 12/20/17 16:05 97.9 105 19 111/72 (85) 98 12/20/17 12:17 97.8 107 19 110/72 (85) 99 12/20/17 12:00 109 12/20/17 08:19 97.5 98 19 116/72 (87) 99 12/20/17 08:00 96 12/20/17 05:34 106 12/20/17 04:40 98.0 67 17 118/67 (84) 99 12/19/17 23:52 98.5 112 18 127/79 (95) 97 12/19/17 21:58 97.4 98 18 108/76 (87) 98 12/19/17 21:56 99 21 12/19/17 16:50 99 I/O 12/19/17 12/19/17 12/19/17 12/20/17 12/20/17 12/20/17 07:00 15:00 23:00 07:00 15:00 23:00 Intake Total 900 ml 1520 ml 850 ml 240 ml 240 ml Balance 900 ml 1520 ml 850 ml 240 ml 240 ml Intake Oral 900 ml 1520 ml 850 ml 240 ml 240 ml # Voids 4 5 6 10 # Bowel Movements 0 2 0 3 Result Diagram: 12/20/17 0721 12/20/17 0721 Imaging Last Impressions Chest X-Ray 12/18/17 0600 Signed Impressions: Service Date/Time: Monday, December 18, 2017 05:53 - CONCLUSION: Stable chest x-ray with mild bibasilar airspace opacity representing either atelectasis or airspace consolidation. Jose Mccartney MD Abdomen X-Ray 12/03/17 0000 Signed Impressions: Service Date/Time: Sunday, December 03, 2017 10:38 - CONCLUSION: No significant small or large bowel loop dilation. Anurag Carrion MD Head CT 11/26/17 0000 Signed Impressions: Service Date/Time: Monday, November 27, 2017 04:18 - CONCLUSION: Decreased pneumocephalus, stable intracranial intra-axial extra-axial hemorrhage and left parietal edema, with postsurgical changes and midline shift. Ariel Nath MD Upper Extremity Ultrasound 11/25/17 0000 Signed Impressions: Service Date/Time: Saturday, November 25, 2017 18:56 - CONCLUSION: Positive for deep venous thrombosis bilateral extremities, right worse than left. Anurag Carrion MD Lower Extremity Ultrasound 11/25/17 0000 Signed Impressions: Service Date/Time: Saturday, November 25, 2017 17:50 - CONCLUSION: Negative for deep venous thrombosis bilateral lower extremity. Anurag Carrion MD Abdomen/Pelvis CT 11/21/17 0000 Signed Impressions: Service Date/Time: Tuesday, November 21, 2017 21:37 - CONCLUSION: 1. No evidence to indicate pancreatitis. 2. Multiple stones in the gallbladder. 3. Multiple bilateral renal calculi.. 4. No significant changes compared to the prior exam. Meir Donnelly MD GI Procedure 11/20/17 0000 Signed Impressions: Service Date/Time: Monday, November 20, 2017 16:40 - CONCLUSION: ERCP as above. Jose Echevarria MD Objective Remarks GENERAL: No distress. SKIN: Warm and dry. HEAD: Wounds healing well. EYES: No scleral icterus. No injection or drainage. Pupils bilaterally 2 mm reactive. NECK: Supple, trachea midline. No JVD. Tracheostomy site is clean dry and intact without bleeding. CARDIOVASCULAR: NL S1S2. Without murmurs, gallops, or rubs. No JVD. RESPIRATORY: Crackles at the bases.. GASTROINTESTINAL: Abdomen soft, non-tender, nondistended. PEG is almost out. MUSCULOSKELETAL: Warm, Well perfused. No edema. NEURO: Pupils equal, round, reactive. No movement right upper extremity. Withdraws to pain right lower extremity. Spontaneous moving left upper and lower extremity. PSYCH: Mood and affect appropriate. Medications and IVs Current Medications Medications (Trade) Dose Ordered Sig/Rachel Route Start Time Stop Time Status Last Admin (NS Flush) 2 ml UNSCH PRN IV FLUSH 11/19/17 04:45 (NS Flush) 2 ml BID IV FLUSH 11/19/17 09:00 12/19/17 13:21 (Zofran Inj) 4 mg Q6H PRN IVP 11/19/17 04:45 (Narcan Inj) 0.4 mg UNSCH PRN IV PUSH 11/19/17 04:45 (Buspar) 30 mg BID PO 11/20/17 09:00 Future Hold 11/21/17 20:28 (Fioricet 325-50-40) 1 tab Q4H PRN PO 11/20/17 05:30 Future Hold 11/20/17 20:33 (Aristocort 0.1% Cream) 1 applic BID TOPICAL 11/21/17 12:00 12/20/17 08:30 (Prinivil) 20 mg DAILY PO 11/22/17 09:00 Future Hold (Lopressor) 12.5 mg Q12HR PO 11/21/17 10:00 Future Hold 11/21/17 20:32 (Colace Liq) 100 mg Q12HR PO 11/22/17 09:00 12/17/17 20:15 (Senna Liq) 8.8 mg BID NG 11/23/17 21:00 12/20/17 08:27 (Albuterol Neb) 2.5 mg Q2HR NEB PRN NEB 11/23/17 16:00 12/06/17 21:20 (Tears Naturale Opth Soln) 1 drop Q8HR EACH EYE 11/23/17 22:00 12/19/17 22:02 (Cathflo Activase Inj) 2 mg Q2H PRN INTRACATH 11/29/17 14:15 12/08/17 11:33 (NS Flush) DAILY IV FLUSH 11/30/17 09:00 12/19/17 09:00 (NS Flush) UNSCH PRN IV FLUSH 11/30/17 08:45 (Free Water) VOLUME: 300 ML Q8HR G-TUBE 11/30/17 14:00 12/20/17 14:00 (Vasotec Inj) 1.25 mg Q6H PRN IV PUSH 12/01/17 12:00 (Nitroglycerin 2% Oint) 2 inch Q6HR PRN TOPICAL 12/01/17 12:00 (Brethine Inj) 1 mg UNSCH PRN SQ 12/02/17 11:30 (Mycostatin Liq) 5 ml QID SWISH-SWAL 12/03/17 13:00 12/20/17 12:34 (Desyrel) 50 mg HS PO 12/03/17 21:00 12/19/17 22:00 (Tylenol 650 Mg/ 20 ml Liq) 650 mg Q6H PRN PO 12/16/17 15:00 (Lactulose Liq) 30 ml Q6HR PO 12/16/17 18:00 (Prevacid Odt) 30 mg DAILY PO 12/17/17 09:00 12/20/17 08:27 (Keppra Liq) 500 mg Q12HR PO 12/16/17 21:00 12/20/17 08:28 (Roxanol Liq) 10 mg Q4HR PRN PO 12/16/17 14:45 12/20/17 12:34 (Miralax) 17 gm BID PO 12/16/17 21:00 12/17/17 20:16 (Pill Splitter) 1 ea UNSCH PRN OTHER 12/16/17 15:00 (Effexor) 50 mg Q12H PO 12/19/17 08:00 12/20/17 08:27 (Levaquin) 750 mg DAILY PO 12/20/17 09:00 12/20/17 08:28 Pharmacy Profile Note 0 ml @ 0 mls/hr UNSCH OTHER 12/20/17 11:30 (Coumadin) 7.5 mg DAILY@1600 PO 12/20/17 16:00 12/20/17 15:03 Date of Insertion: Nov 30, 2017 Line: Central Venous Catheter Side: Left Location: Internal, Jugular A/P Assessment and Plan Large acute intraparenchymal hemorrhage involving the left parietal lobe Midline shift to the right by 9 mm. Subarachnoid hemorrhage and cerebral edema on the left side. Status post left parietal craniotomy for intracerebral hematoma evacuation, Left frontal gt hole placement for ventriculostomy by Dr. Womack. - Currently on levetiracetam 500 mg every 12 hours. - Morphine liquid as needed with a bowel regimen. - Venlafaxine 50 mill grams twice a day and trazodone 50 mg at night/home medication. - PT/ OT/ ST. Acute respiratory failure Status post percutaneous tracheostomy 12/02 #8 Carlitiffany. Has COPD and ongoing tobaccoism. Pulmonology consult appreciated. Repeat CXR with basilar airspace disease. - Albuterol/ipratropium aerosols every 6 hours with albuterol aerosols every 2 hours as needed dyspnea. - Tobacco cessation. - IV Levaquin started 12/15, end date 12/22. - 12/19 trach has been decannulated and patient is doing well. Continue to follow pulmonology recommendations. 12/20 Patient has been cleared to be discharged by Dr Cordova. Acute pancreatitis/ choledocholithiasis/ History of celiac disease 11/21/17 s/p ERCP with sphincterotomy and balloon extraction, finding choledocholithiasis. GI signed off. - d/c tube feeds. Regular diet per speech therapy. - Lansoprazole 30 mg daily for GI prophylaxis. - Continue docusate sodium 100 mg twice daily and senna 8.6 mg twice daily. Patient is on polyethylene glycol 17 g twice daily at home for constipation which is been continued along with lactulose 30 cc 4 times a day. - will need PEG tube removed by GI when able. 12/19 reconsult GI for PEG removal. 12/20 GI recommends that PEG tube can be removed on or after 01/01/18 patient is okay to DC to rehab from GI standpoint. Chronic pain On Morphine pump. - continue pain management as above. E. coli UTI Coag negative staph bacteremia. 11/19 -UA -pansensitive E. coli. 11/20 -blood cultures 2 -coag negative staph/staph epi pansensitive. ID consult appreciated. - hold ceftriaxone per infectious disease. On Levaquin for PNA as above. 12/19 DC IV Levaquin and start oral levaquin DVT Right subclavian/axillary and brachial DVT. Left cephalic superficial thrombus/ brachial thrombus. - d/c Lovenox, INR slightly subtherapeutic. Monitor PT/INR. 12/19 INR slightly subtherapeutic at 1.8. Pharmacy consulted to help on Coumadin dosage. 12/20 will resume Lovenox subcutaneously since patient's INR is 1.3. Dosing of warfarin as per pharmacy. As per review of records, neurosurgery cleared the patient to be started on full active coagulation, however there is increased risk of bleeding. This was discussed with the daughter and the daughter and the patient are aware and will take the risk. PPx: Coumadin Discharge Planning Possible discharge in a.m., patient been started on Lovenox subcutaneously and Coumadin. Observe overnight and if stable and INR has not jumped considerably then will discharge to rehab. Eusebio Graves MD Dec 20, 2017 16:53
--- NOTE | 2017-12-20 18:37 | HHI.PR ---
Subjective Remarks Alert and off O2 . Trach is out and is doing well. Will have peg removed. Neck wound is healing. Objective Vital Signs Date Time Temp Pulse Resp B/P (MAP) Pulse Ox O2 Delivery O2 Flow Rate FiO2 12/20/17 16:05 97.9 105 19 111/72 (85) 98 12/20/17 12:17 97.8 107 19 110/72 (85) 99 12/20/17 12:00 109 12/20/17 08:19 97.5 98 19 116/72 (87) 99 12/20/17 08:00 96 12/20/17 05:34 106 12/20/17 04:40 98.0 67 17 118/67 (84) 99 12/19/17 23:52 98.5 112 18 127/79 (95) 97 12/19/17 21:58 97.4 98 18 108/76 (87) 98 12/19/17 21:56 99 21 I/O 12/19/17 12/19/17 12/19/17 12/20/17 12/20/17 12/20/17 07:00 15:00 23:00 07:00 15:00 23:00 Intake Total 900 ml 1520 ml 850 ml 240 ml 240 ml Balance 900 ml 1520 ml 850 ml 240 ml 240 ml Intake Oral 900 ml 1520 ml 850 ml 240 ml 240 ml # Voids 4 5 6 10 # Bowel Movements 0 2 0 3 Result Diagram: 12/20/17 0721 12/20/17 0721 Objective Remarks GENERAL: This is a well-nourished, well-developed patient, in no apparent distress.HEENT: clear. Neck: Trach site is clean .No venous distension. CARDIOVASCULAR: Regular rate and rhythm without murmurs, gallops, or rubs. RESPIRATORY: Occ wheeze and diminished breath sounds bilaterally. GASTROINTESTINAL: Abdomen soft, non-tender,nondistended. Normal active bowel sounds MUSCULOSKELETAL: Extremities without clubbing, cyanosis, or edema. NEURO: Alert & Oriented x4 to person, place, time, situation.Weak on Right side. Assessment and Plan Assessment and Plan A/P Assessment and Plan Large acute intraparenchymal hemorrhage involving the left parietal lobe Midline shift to the right by 9 mm. Subarachnoid hemorrhage and cerebral edema on the left side. Status post left parietal craniotomy for intracerebral hematoma evacuation, Left frontal gt hole placement for ventriculostomy . - Currently on levetiracetam 500 mg every 12 hours. - PT/ OT/ ST. Acute respiratory failure. COPD, Resolved. Status post percutaneous tracheostomy 12/02 #6 Shiley and removal - D/C Albuterol/ipratropium aerosols - Tobacco cessation. Clean trach site and dress daily. Acute pancreatitis/ choledocholithiasis/ History of celiac disease 11/21/17 s/p ERCP with sphincterotomy and balloon extraction, finding choledocholithiasis. Po Diet as tolerated - Lansoprazole 30 mg daily for GI prophylaxis. D/C PEG Chronic pain On Morphine pump. - continue pain management. DVT Right subclavian/axillary and brachial DVT. Left cephalic superficial thrombus/ brachial thrombus. -Cont Coumadin 7.5 mg daily, Discharge Plan : OK to discharge to Home. Claduia Shaffer MD Dec 20, 2017 18:37
[2017-12-20] MEDS: ENOXAPARIN SODIUM 80 MG/0.8 ML SYRINGE SQ SCH (18:49)
[2017-12-20] MEDS: traZODone HCL 50 MG TAB PO SCH (20:27)
[2017-12-21 00:23] VITALS: BP 125/64; PULSE 110; RESP 16; O2SAT 98
[2017-12-21 05:07] VITALS: BP 118/78; PULSE 109; PULSE 111; RESP 18; TEMP 98.5; O2SAT 97
[2017-12-21] MEDS: ENOXAPARIN SODIUM 80 MG/0.8 ML SYRINGE SQ SCH (05:43)
[2017-12-21] MEDS: LACTULOSE SYRUP 20 GM/30 ML CUP PO SCH ×3 (05:44→12:02)
[2017-12-21] MEDS: FREE WATER G-TUBE SCH ×2 (05:44→12:46)
[2017-12-21] MEDS: ARTIFICIAL TEARS OPTH SOLN 15 ML BTL EACH EYE SCH (05:44)
[2017-12-21 07:22] LABS: INTERNATIONAL NORMALIZED RATIO 1.5 RATIO; PROTHROMBIN TIME - PATIENT 14.7 SEC (9.8-11.6)
[2017-12-21 08:18] VITALS: BP 136/69; PULSE 102; RESP 18; TEMP 97.5; O2SAT 96
[2017-12-21] MEDS: SODIUM CHLORIDE 0.9% FLUSH 10 ML FLUSH IV FLUSH SCH ×2 (09:00)
[2017-12-21] MEDS: VENLAFAXINE HCL 25 MG TAB PO SCH (09:37)
[2017-12-21] MEDS: LEVOFLOXACIN 750 MG TAB PO SCH (09:37)
[2017-12-21] MEDS: LANSOPRAZOLE SOLUTAB 30 MG TAB PO SCH (09:37)
[2017-12-21] MEDS: NYSTATIN SUSP 500,000 U/5 ML CUP SWISH-SWAL SCH ×2 (09:38→13:29)
[2017-12-21] MEDS: levETIRAcetam 500 MG/5 ML UDC PO SCH (09:38)
[2017-12-21] MEDS: TRIAMCINOLONE ACETONIDE 0.1% CREAM 15 GM TOPICAL SCH (09:39)
[2017-12-21] MEDS: DOCUSATE SODIUM 100 MG/10 ML UDC PO SCH (09:43)
[2017-12-21] MEDS: SENNOSIDES SYRUP 8.8 MG/5 ML CUP NG SCH (09:43)
[2017-12-21] MEDS: POLYETHYLENE GLYCOL 17 GM PKG PO SCH (09:44)
[2017-12-21] MEDS ORDERED: COUM7.5T PO (11:37)
[2017-12-21] MEDS ORDERED: LEVA750T9 PO (11:37)
[2017-12-21] MEDS ORDERED: HYDR-3366 PO (11:37)
[2017-12-21] MEDS ORDERED: LEVE500S PO (11:37)
[2017-12-21] MEDS ORDERED: MORP-44 PO (11:37)
[2017-12-21] MEDS: MORPHINE SULFATE ORAL SOLN 10 MG/0.5 ML SYRINGE PO PRN (11:43)
[2017-12-21] MEDS ORDERED: ENOX80P SQ (11:46)
--- NOTE | 2017-12-21 11:48 | HHI.DCPOC ---
Discharge Care Plan Diagnosis: (1) DVT (deep vein thrombosis) in (2) E. coli UTI (3) ICH (intracerebral hemorrhage) (4) Acute respiratory failure (5) Pancreatitis Goals to Promote Your Health * To prevent worsening of your condition and complications * To maintain your health at the optimal level Directions to Meet Your Goals Take your medications as prescribed Follow your dietary instruction Follow activity as directed Keep your appointments as scheduled Take your immunizations and boosters as scheduled If your symptoms worsen call your PCP, if no PCP go to Urgent Care Center or Emergency Room Smoking is Dangerous to Your Health. Avoid second hand smoke Call the 24-hour hour crisis hotline for domestic abuse at Eusebio Graves MD Dec 21, 2017 11:48
--- NOTE | 2017-12-21 11:57 | HHI.FF ---
Face to Face Verification Diagnosis: (1) Acute respiratory failure (2) ICH (intracerebral hemorrhage) (3) Pancreatitis (4) E. coli UTI (5) DVT (deep vein thrombosis) in Physical Therapy Order: Improve ambulation, Strength and gait training Home Health Nursing Order: Wound care and dressing changes Nursing assessment with vital signs I have seen patient Steff Vasquez on 12/21/17. My clinical findings support the need for the requested home health care services because: Deconditioned w/ increased weakness Infection w/ risk of complications I certify that my clinical findings support that this patient is homebound because: Unsafe to leave home unassisted Need for psychosocial assistance Unable to use public transportation Eusebio Graves MD Dec 21, 2017 11:57
[2017-12-21 12:27] VITALS: BP 116/59; PULSE 108; RESP 18; TEMP 97.8; O2SAT 98
[2017-12-21 12:37] VITALS: PULSE 100
[2017-12-21] MEDS ORDERED: WARFARIN SOD 1 MG TAB PO ONE (16:00)
== END 2017-12-21 15:00 | disposition home health service (06) | DRG 3 ==
LOC: NEPC 03:10 → NEDA 04:42 → OBSVTOIN 04:44 → N05A 06:14 → N03A 11-21 22:18 → N05A 12-13 23:49
PROVIDERS: ADMIT Family Medicine; ATTEND Hospitalist
PROC: 0FC98ZZ Extirpation of Matter from Common Bile Duct, Via Natural or Artificial Opening Endoscopic (ICD-10-PCS; principal; 2017-11-20 15:40)
PROC: 00C70ZZ Extirpation of Matter from Cerebral Hemisphere, Open Approach (ICD-10-PCS; 2017-11-22)
PROC: 5A1955Z Respiratory Ventilation, Greater than 96 Consecutive Hours (ICD-10-PCS; 2017-11-22)
PROC: 009630Z Drainage of Cerebral Ventricle with Drainage Device, Percutaneous Approach (ICD-10-PCS; 2017-11-22)
PROC: 02HV33Z Insertion of Infusion Device into Superior Vena Cava, Percutaneous Approach (ICD-10-PCS; 2017-11-22)
PROC: 0BH18EZ Insertion of Endotracheal Airway into Trachea, Via Natural or Artificial Opening Endoscopic (ICD-10-PCS; 2017-11-22)
PROC: 03HY32Z Insertion of Monitoring Device into Upper Artery, Percutaneous Approach (ICD-10-PCS; 2017-11-22)
PROC: 05HN33Z Insertion of Infusion Device into Left Internal Jugular Vein, Percutaneous Approach (ICD-10-PCS; 2017-11-30)
PROC: 0B113F4 Bypass Trachea to Cutaneous with Tracheostomy Device, Percutaneous Approach (ICD-10-PCS; 2017-12-02)
PROC: 5A1955Z Respiratory Ventilation, Greater than 96 Consecutive Hours (ICD-10-PCS; 2017-12-02)
PROC: 0BJ08ZZ Inspection of Tracheobronchial Tree, Via Natural or Artificial Opening Endoscopic (ICD-10-PCS; 2017-12-02)
PROC: 0DH63UZ Insertion of Feeding Device into Stomach, Percutaneous Approach (ICD-10-PCS; 2017-12-04)
PROC: 30233N1 Transfusion of Nonautologous Red Blood Cells into Peripheral Vein, Percutaneous Approach (ICD-10-PCS; 2017-12-04)
DX: K85.10 Biliary acute pancreatitis without necrosis or infection (principal); G93.6 Cerebral edema; R57.9 Shock, unspecified; J18.9 Pneumonia, unspecified organism; I61.1 Nontraumatic intracerebral hemorrhage in hemisphere, cortical; I60.9 Nontraumatic subarachnoid hemorrhage, unspecified; E87.0 Hyperosmolality and hypernatremia; D69.6 Thrombocytopenia, unspecified; K80.71 Calculus of gallbladder and bile duct without cholecystitis with obstruction; J44.0 Chronic obstructive pulmonary disease with (acute) lower respiratory infection; J96.01 Acute respiratory failure with hypoxia; E87.2 Acidosis; I82.621 Acute embolism and thrombosis of deep veins of right upper extremity; R78.81 Bacteremia; N39.0 Urinary tract infection, site not specified; R47.01 Aphasia; I82.612 Acute embolism and thrombosis of superficial veins of left upper extremity; I82.A11 Acute embolism and thrombosis of right axillary vein; I82.B11 Acute embolism and thrombosis of right subclavian vein; G81.91 Hemiplegia, unspecified affecting right dominant side; I95.9 Hypotension, unspecified; I10 Essential (primary) hypertension; G25.81 Restless legs syndrome; G89.29 Other chronic pain; M79.7 Fibromyalgia; B96.20 Unspecified Escherichia coli [E. coli] as the cause of diseases classified elsewhere; F41.9 Anxiety disorder, unspecified; B95.7 Other staphylococcus as the cause of diseases classified elsewhere; K90.0 Celiac disease; K59.03 Drug induced constipation; T40.2X5A Adverse effect of other opioids, initial encounter; E83.41 Hypermagnesemia; D64.9 Anemia, unspecified; E87.6 Hypokalemia; F17.210 Nicotine dependence, cigarettes, uncomplicated; N20.0 Calculus of kidney; G89.4 Chronic pain syndrome; E83.39 Other disorders of phosphorus metabolism; Z88.1 Allergy status to other antibiotic agents; Z88.0 Allergy status to penicillin; Z88.8 Allergy status to other drugs, medicaments and biological substances; Z88.2 Allergy status to sulfonamides; Z79.891 Long term (current) use of opiate analgesic
CPT/HCPCS: 31600; 31624; 36430; 36556; 36600; 70450; 71045; 74018; 74177; 74330; 76937; 80048; 80053; 80307; 81001; 82105; 82140; 82378; 82728; 82805; 82945; 83036; 83540; 83550; 83605; 83690; 83735; 83930; 84100; 84132; 84145; 84157; 84295; 84466; 84484; 85007; 85025; 85027; 85384; 85610; 85730; 86301; 86403; 86850; 86900; 86901; 86920; 87015; 87040; 87070; 87077; 87086; 87102; 87116; 87186; 87205; 87206; 89051; 93005; 93970; 94002; 94003; 94150; 94640; 94664; 99285; A7520; C1713; C1769; J0131; J0330; J0696; J1100; J1580; J1644; J1650; J1953; J1956; J2150; J2175; J2212; J2250; J2270; J2370; J2405; J2550; J2997; J3010; J3370; J3480; J7030; J7050; J7060; J7120; J7613; P9016; Q9963; Q9967

== ENCOUNTER 2018-01-10 14:09 | Emergency (ER) | payer OTHER ==
[~2018-01-10] VITALS: Ht 167.6 cm; Wt 70.0 kg
[~2018-01-10 14:09] MED LIST changes: -ALBU8I INH; +ALBUAER3 INH; -CLEAPOW2 PO; +COUM7.5T PO; +ENOX80P SQ; -FIORIC PO; +HYDR-3366 PO; -HYDR10SO PO; +LEVA750T9 PO; +LEVE500S PO; +MORP-44 PO; -MORP1CAP63 PO; +PANT40TA3 PO; +POLY17S PO; -PROT40TA PO; -VENL100T PO; +VENL50TA PO
[2018-01-10 14:42] VITALS: BP 146/83; PULSE 96; RESP 16; TEMP 98.3; O2SAT 97
--- NOTE | 2018-01-10 16:17 | PD ---
HPI Chief Complaint: Back/ Neck Pain or Injury Time Seen by Provider: 15:57 Travel History International Travel<30 days: No Contact w/Intl Traveler<30days: No Traveled to known affect area: No History of Present Illness HPI 62-year-old female presents to the emergency room for evaluation of left upper back pain that started 1 hour prior to arrival. Pain was constant and lasted about 1 hour. It was sudden onset while she was eating. Pain was so severe that it caused her to cry very hard. She went home and took her prescribed hydrocodone for breakthrough pain which did not seem to help. She then came to the emergency room. While waiting in the emergency room and prior to being seen , her pain resolved but she then developed a significant headache. Patient states she has had similar headaches since her brain surgery especially after exertion. Headache was localized to the frontal region and worse with light. Patient is status post craniotomy for hemorrhagic stroke 6 weeks ago. PFSH Past Medical History Arthritis: Yes Asthma: No Autoimmune Disease: Yes (CELIAC) Blood Disorders: No Heart Rhythm Problems: Yes (FAST HEART RATE) Cancer: No Cardiac Catheterization: Yes Cardiovascular Problems: Yes (HX TACHYCARDIA) High Cholesterol: Yes (BORDERLINE) Chemotherapy: No Chest Pain: Yes Congestive Heart Failure: No COPD: Yes Cerebrovascular Accident: Yes (11/22/17) Diabetes: No Diminished Hearing: Yes (WEARS HEARING AIDS) Endocrine: No (SICKLE CELL TRAIT) Fibromyalgia: Yes GERD: Yes Glaucoma: No Genitourinary: No Headaches: No Hepatitis: No Hiatal Hernia: No Hypertension: No Immune Disorder: No Kidney Stones: Yes Musculoskeletal: No Neurologic: No Reproductive: No Respiratory: Yes (COPD) Migraines: No Radiation Therapy: No Renal Failure: No Seizures: No Sleep Apnea: No Thyroid Disease: No Ulcer: Yes PNEUMOCCOCAL Vaccine (Year): 2 Menopausal: Yes Tubal Ligation: Yes (1979) Past Surgical History Abdominal Surgery: No AICD: No Arteriovenous Shunt: No Body Medical Devices: DAYDAY. URETERAL STENTS Cardiac Surgery: No Coronary Artery Bypass Graft: No Ear Surgery: No Endocrine Surgery: No Eye Surgery: No Genitourinary Surgery: No Gynecologic Surgery: No Insulin Pump: No Joint Replacement: No Neurologic Surgery: Yes (CERVICAL FUSION) Oral Surgery: No Pacemaker: No Thoracic Surgery: No Other Surgery: Yes Social History Alcohol Use: No Tobacco Use: Yes (1 PPD) Substance Use: No Allergies-Medications (Allergen,Severity, Reaction): Coded Allergies: bupropion (Unverified Allergy, Severe, 05/30/17) diclofenac (Unverified Allergy, Severe, ULCER HX, 05/30/17) erythromycin base (Unverified Allergy, Severe, 05/30/17) etodolac (Unverified Allergy, Severe, ULCER HX, 05/30/17) flurbiprofen (Unverified Allergy, Severe, ULCER HX, 05/30/17) gabapentin (Unverified Allergy, Severe, 05/30/17) gluten (Unverified Allergy, Severe, BLOATING, 05/30/17) ibuprofen (Unverified Allergy, Severe, ULCER HX, 05/30/17) indomethacin (Unverified Allergy, Severe, ULCER HX, 05/30/17) ketoprofen (Unverified Allergy, Severe, ULCER HX, 05/30/17) ketorolac (Unverified Allergy, Severe, ULCER HX, 05/30/17) naproxen (Unverified Allergy, Severe, ULCER HX, 05/30/17) oxaprozin (Unverified Allergy, Severe, ULCER HX, 05/30/17) penicillin G (Unverified Allergy, Severe, 05/30/17) sulfamethoxazole (Unverified Allergy, Severe, 05/30/17) topiramate (Unverified Allergy, Severe, 05/30/17) trimethoprim (Unverified Allergy, Severe, 05/30/17) quetiapine (Verified Adverse Reaction, Intermediate, headache, 12/03/17) Reported Meds & Prescriptions Reported Meds & Active Scripts Active Lovenox Inj (Enoxaparin Sodium) 80 mg/0.8 ML Syr 70 Mg SQ Q12H Discontinue once INR goes above 2 Keppra Liq (Levetiracetam) 500 Mg/5 Ml Soln 500 Mg PO Q12HR [place] (Hydrocodone-Acetaminophen) 10-325 Mg Tab 1 Tab PO Q4H PRN Coumadin (Warfarin) 7.5 Mg Tab 7.5 Mg PO DAILY@1600 Levaquin (Levofloxacin) 750 Mg Tablet 750 Mg PO DAILY Morphabond ER 12 HR (Morphine Sulfate) 30 Mg Tab 30 Mg PO Q12H Reported Effexor (Venlafaxine HCl) 50 Mg Tab 50 Mg PO Q12H Polyethylene Glycol 3350 Powder (Polyethylene Glycol) 17 Gram Pow 17 Gm PO DAILY Pantoprazole (Pantoprazole Sodium) 40 Mg Tab 40 Mg PO DAILY Buspirone (Buspirone HCl) 30 Mg Tab 30 Mg PO BID Proair Hfa 8.5 GM Inh (Albuterol Sulfate) 90 Mcg/Act Aer 2 Puff INH Q6H PRN 108 mcg/actuation Review of Systems Except as stated in HPI: all other systems reviewed are Neg Physical Exam Narrative GENERAL: Well-nourished, well-developed female no acute distress. Afebrile. Ambulatory. Crying in pain. SKIN: Focused skin assessment warm/dry. HEAD: Normocephalic. EYES: No scleral icterus. No injection or drainage. NECK: Supple, trachea midline. No JVD or lymphadenopathy. CARDIOVASCULAR: Regular rate and rhythm without murmurs, gallops, or rubs. RESPIRATORY: Breath sounds equal bilaterally. No accessory muscle use. GASTROINTESTINAL: Abdomen soft, non-tender, nondistended. BACK: Nontender without obvious deformity. No CVA tenderness. NEUROLOGICAL: Awake and alert. No obvious cranial nerve deficits. Motor and sensory grossly within normal limits. Normal speech. Data Data Last Documented VS Vital Signs Date Time Temp Pulse Resp B/P (MAP) Pulse Ox O2 Delivery O2 Flow Rate FiO2 01/10/18 14:42 98.3 96 16 146/83 (104) 97 Orders Orders Abdomen, Kub Only (01/10/18 ) Ct Brain W/O Iv Contrast(Rout) (01/10/18 ) Ed Discharge Order (01/10/18 19:07) MDM Medical Decision Making Medical Screen Exam Complete: Yes Emergency Medical Condition: Yes Medical Record Reviewed: Yes Differential Diagnosis Exertional headache, brain bleed, back spasm, kidney stone Narrative Course 62-year-old female presents to the emergency room for evaluation of left upper back spasm that started suddenly without trauma or injury earlier today. Patient states it lasted about 1 hour. Pain was so severe and sharp that it caused her to cry extremely hard. She came to the emergency room after taking her prescribed pain medication and while waiting in the ER the pain resolved. However because she was crying so hard, she developed an extreme headache. Patient had recent history of intracranial hemorrhage status post craniotomy 6 weeks ago and is on warfarin. Physical exam is reassuring. There are no new focal neurological deficits. Patient is interacting appropriately. CT of the brain is negative for acute abnormality. X-ray was performed to evaluate for free air, gas, or kidney stone. X-ray shows chronic kidney stones and patient' s pain was higher than the kidneys on exam so I do not suspect that was the cause of her pain. Likely gas or muscle spasm. Patient was reassured and told to follow-up with her primary care physician or return for worsening symptoms. She understands and agrees to plan. Diagnosis Primary Impression: Back spasm Additional Impression: Headache Qualified Codes: R51 - Headache Referrals: Primary Care Physician Additional Instructions: Rest and drink plenty of fluids. Take medications as directed. Follow-up with a primary care physician. Return to the emergency room for worsening symptoms. Disposition: 01 DISCHARGE HOME Condition: Stable Nessa Watkins Jan 10, 2018 16:17
--- NOTE | 2018-01-10 16:27 | RADRPT ---
EXAM DATE/TIME: 01/10/2018 16:15 [facility] COMPARISON: ABDOMEN KUB ONLY, December 03, 2017, 10:38. INDICATIONS : Patient states upper abdominal pain. MEDICAL HISTORY : Chronic obstructive pulmonary disease. Gastroesophageal reflux disease. Cardiovascular disease. c eliac disease, fibromyalgia SURGICAL HISTORY : Tubal ligation. cervical fusion ENCOUNTER: Initial ACUITY: 3 days PAIN SCORE: 8/10 LOCATION: Bilateral chest FINDINGS: Supine view of the abdomen was performed. The abdominal bowel gas pattern is normal. There is a guanako rostomy tube in the stomach. There is stool in the colon. No abnormal dilatation is seen. There are c alcifications overlying both kidneys suggestive of bilateral renal stones. There are degenerative jonathan nges involving the lumbar spine. There is stool in the rectum. The lung bases are grossly clear. Ther e is an implanted device along the right lower quadrant. This is stable compared to the prior study. CONCLUSION: 1. The bowel gas pattern is grossly within normal limits. 2. There is a gastrostomy tube in the stomach. 3. Bilateral kidney stones. 4. No significant changes compared to the prior exam. Meir Donnelly MD on January 10, 2018 at 16:24 Board Certified Radiologist. This report was verified electronically.
--- NOTE | 2018-01-10 19:07 | RADRPT ---
EXAM DATE/TIME: 01/10/2018 18:30 [facility] COMPARISON: CT BRAIN W/O CONTRAST, November 27, 2017, 4:18. INDICATIONS : Back pain . RADIATION DOSE: 56.35 CTDIvol (mGy) MEDICAL HISTORY : Cardiovascular disease. Chronic obstructive pulmonary disease. Ulcers.STROKE 1 month. SURGICAL HISTORY : Tubal ligation. ENCOUNTER: Initial ACUITY: 1 day PAIN SCALE: 6/10 LOCATION: cranial TECHNIQUE: Multiple contiguous axial images were obtained of the head. Using automated exposure control and adj ustment of the mA and/or kV according to patient size, radiation dose was kept as low as reasonably a chievable to obtain optimal diagnostic quality images. DICOM format image data is available electro nically for review and comparison. FINDINGS: CEREBRUM: There is low-density seen in the left parietal lobe consistent with evolving encephalomalacia. The pr eviously seen hemorrhage has resolved. The patient is status post left craniotomy. There is a surgica l defect in the posterior superior left frontal bone. The ventriculostomy tube has been removed. The ventricles are normal for age. No evidence of midline shift, mass lesion, hemorrhage or acute infarc tion. No extra-axial fluid collections are seen. POSTERIOR FOSSA: The cerebellum and brainstem are intact. The 4th ventricle is midline. The cerebellopontine angle i s unremarkable. EXTRACRANIAL: The visualized portion of the orbits is intact. SKULL: The calvaria is intact. No evidence of skull fracture. CONCLUSION: 1. Evolving encephalomalacia in the left parietal lobe. 2. No new or acute abnormality seen. No hemorrhage is seen at this time. 3. Status post left radiography. Jose Pak MD on January 10, 2018 at 19:03 Board Certified Radiologist. This report was verified electronically.
== END 2018-01-10 19:22 | disposition home or self-care (01) ==
LOC: NEPK 14:09
DX: M62.830 Muscle spasm of back (principal); R51 Headache; J44.9 Chronic obstructive pulmonary disease, unspecified; N20.0 Calculus of kidney; D57.3 Sickle-cell trait; M79.7 Fibromyalgia; K90.0 Celiac disease; F17.210 Nicotine dependence, cigarettes, uncomplicated; Z86.73 Personal history of transient ischemic attack (TIA), and cerebral infarction without residual deficits; Z88.0 Allergy status to penicillin; Z88.2 Allergy status to sulfonamides; Z88.8 Allergy status to other drugs, medicaments and biological substances; Z79.899 Other long term (current) drug therapy; Z79.01 Long term (current) use of anticoagulants
CPT/HCPCS: 70450; 74018